=== PATIENT | male | born 1955 | race African-American/Black ===

== ENCOUNTER 2023-06-09 13:23 | Emergency (ER) | payer MEDICARE, SELFPAY ==
[2023-06-09] VITALS (11 sets, daily range): BP systolic 132–166; BP diastolic 79–100; PULSE 82–96; RESP 18–20; TEMP 36.6; O2SAT 96–98; BMI 39.4
--- NOTE | 2023-06-09 14:12 | XR_ITS ---
The [address] [address] Patient Name: LUIS JORGENSEN MRN: [id number] date: 1955 Sex: M Assigned Patient Location: ER Current Patient Location: ER Accession/Order Number: [id number] Exam Date: 06/09/2023 14:20 Report Date: 06/09/2023 14:54 At the request of: TARSHA DOWELL Procedure: XR chest 1V EXAMINATION: XR chest 1V HISTORY: pain COMPARISON: No relevant comparison available. TECHNIQUE: AP portable FINDINGS: LUNGS: No significant pulmonary parenchymal abnormalities. VASCULATURE: No increased pulmonary vasculature. PLEURA: No pneumothorax, effusion, or pleural thickening. CARDIAC: No cardiomegaly or cardiac silhouette abnormality. MEDIASTINUM: No visible mass or adenopathy. BONES: Mild degenerative disc disease and spondylosis without visible acute abnormalities. OTHER: Retrocardiac opacity with an air-fluid level mL likely a hiatal hernia XR/XR chest 1V IMPRESSION: No acute cardiopulmonary process Electronically authenticated by: ISAEL BARRAZA Date: 06/09/2023 14:54
--- NOTE | 2023-06-09 14:12 | ECG_ITS ---
The [facility] Test Date: 2023-06-09 Pat Name: LUIS JORGENSEN Department: Room: - Gender: Male Day Care Provider: : 1955 Requested By: MARISOL SANCHES Order Number: [id number] Reading MD: CHAGO DANIEL Measurements Intervals [place] Rate: 94 P: 17 RI: 190 QRS: 12 QRSD: 104 T: 90 QT: 392 QTc: 444 Interpretive Statements 1100 Sinus rhythm 1570 with occasional ventricular premature complexes 3514 Cannot rule out lateral myocardial infarction, age undetermined 9150 abnormal ECG No previous ECG available for comparison Electronically Signed On 06-11-2023 14:02:50 EDT by CHAGO DANIEL
--- NOTE | 2023-06-09 14:14 | ED.GENADUL1 ---
HPI - General Adult General Chief complaint: Dizziness Stated complaint: FAINTING SPELLS Time Seen by Provider: 06/09/23 14:12 Source: patient Mode of arrival: Wheelchair Limitations: no limitations History of Present Illness HPI narrative: 68-year-old here for evaluation of not feeling good two days ago. He says he felt wonderful yesterday and today but his family wanted to come and get checked. He does have chronic renal failure and is on home peritoneal dialysis for several months. He has not had fever nausea or vomiting. He states someone say he just felt fatigued and tired and little bit lightheaded. He does not have a having a squeezing or pressure. He did not have shortness of breath. No fever shakes or chills. He is not known to have coronary artery disease. He's not had any swelling of his legs. On Monday he had a little bit discomfort in his abdomen but he does not have any neck discomfort yesterday or today. Related Data Allergies Allergy/AdvReac Type Severity Reaction Status Date / Time cephalexin [From Keflex] Allergy Severe icthing Verified 06/09/23 13:39 PFSH PFS Social History Smoking status: Never smoker Exam Narrative Exam Narrative: patient's awake alert oriented ?3 good historian. Denies any symptoms at this time. Vital signs including pulse oximetry and temperature are noted to be normal. His is here with him at this time. She did not refute any of the information. Constitutional vital signs are noted does not appear acutely ill. Appears somewhat older than stated age. HEENT. He has some visual loss secondary to glaucoma but does not any symptoms related to his eyes at this time. He does not have any conjunctivitis or scleral icterus. Lungs are clear with no wheezes rales or rhonchi. Pulse oximetry normal no respiratory distress. Heart sounds were normal with no clicks rubs gallops or murmurs. He did have occasional ectopy. His EKG did show unifocal PVC Abdomen is morbidly obese his peritoneal dialysis catheter is in place and is not have any discomfort with aggressive palpation of the abdomen. Patient has no peripheral edema. Constitutional Vital Signs, click to edit/add: Last Vital Signs Temp 97.9 F 06/09/23 13:39 Pulse 93 H 06/09/23 13:48 Resp 19 06/09/23 13:48 BP 147/91 H 06/09/23 15:31 Pulse Ox 96 06/09/23 14:28 O2 Del Method Room Air 06/09/23 13:39 Course Vital Signs Vital signs: Vital Signs Temperature 97.9 F 06/09/23 13:39 Pulse Rate 96 H 06/09/23 13:39 Respiratory Rate 20 06/09/23 13:39 Blood Pressure 132/85 06/09/23 13:39 Pulse Oximetry 96 06/09/23 13:39 Oxygen Delivery Method Room Air 06/09/23 13:39 Temperature 97.9 F 06/09/23 13:39 Pulse Rate 93 H 06/09/23 13:48 Respiratory Rate 19 06/09/23 13:48 Blood Pressure 147/91 H 06/09/23 15:31 Pulse Oximetry 96 06/09/23 14:28 Oxygen Delivery Method Room Air 06/09/23 13:39 Medical Decision Making MDM Narrative Medical decision making narrative: this patient states he feels fine at this time but felt bad on Monday. We have no baseline troponin and they are substantially elevated here. His kidney function according to his kidney dialysis nurse is normal with an elevated creatinine. Potassium slightly low. He is asymptomatic. He does have unifocal PVC with elevated troponin. I discussed this with a tertiary center in no be glad to accept him as I'll discuss with Mr. Chong and his . We will arrange transportation to the [facility] Differential Diagnosis Differential Diagnosis: this Lab Data Labs: Lab Results 06/09/23 06/09/23 Range/Units 14:33 15:55 WBC 7.9 (4.0-11.0) 10^3/uL RBC 3.59 L (4.70-6.10) 10^6/uL Hgb 10.6 L (14.0-18.0) g/dL Hct 32.8 L (42.0-54.0) % MCV 91.4 (80.0-94.0) fL MCH 29.5 (25.9-34.0) pg MCHC 32.3 (29.9-35.2) g/dL RDW 15.5 H (11.0-15.0) % Plt Count 224 (150-450) 10^3/uL MPV 9.8 (9.5-13.5) fL Neut % (Auto) 78.0 H (43.0-75.0) % Lymph % (Auto) 11.1 L (20.5-60.0) % Cocke % (Auto) 7.6 (1.7-12.0) % Eos % (Auto) 2.2 (0.9-7.0) % Baso % (Auto) 0.5 (0.2-2.0) % Neut # (Auto) 6.2 (1.4-6.5) 10^3/uL Lymph # (Auto) 0.9 L (1.2-3.8) 10^3/uL Cocke # (Auto) 0.6 (0.3-0.8) 10^3/uL Eos # (Auto) 0.2 (0.0-0.7) 10^3/uL Baso # (Auto) 0.0 (0.0-0.1) 10^3/uL Abs Immat Gran (auto) 0.05 H (0.00-0.03) 10^3/uL Imm/Tot Granulo (auto) 0.6 H (0.0-0.5) % Sodium 139 (136-145) mmol/L Potassium 3.2 L (3.5-5.1) mmol/L Chloride 102 (98-107) mmol/L Carbon Dioxide 27.9 (21.0-32.0) mmol/L Anion Gap 12.3 BUN 30.0 H (7.0-18.0) mg/dL Creatinine 8.68 H* (0.70-1.30) mg/dL Est GFR ( Amer) 7 L (>=60) Est GFR (Non-Af Amer) 6 L (>=60) BUN/Creatinine Ratio 3.5 Glucose 133 H (74-106) mg/dL Lactate 0.9 (0.4-2.0) mmol/L Calcium 9.2 (8.5-10.1) mg/dL Magnesium 1.8 (1.8-2.4) mg/dL Total Bilirubin 0.3 (0.2-1.0) mg/dL AST 28 (15-37) U/L ALT 34 (16-63) U/L Alkaline Phosphatase 89 (46-116) U/L Troponin I High Sens 770.3 H* 781.9 H* (4.0-76.1) pg/mL Total Protein 8.3 H (6.4-8.2) g/dL Albumin 2.4 L (3.4-5.0) g/dL Globulin 5.9 g/dL Albumin/Globulin Ratio 0.4 Discharge Plan Discharge Chief Complaint: Dizziness Clinical Impression: Non-ST elevated myocardial infarction (non-STEMI), Chronic progressive renal failure Patient Disposition: [facility] Time of Disposition Decision: 17:31 Condition: Fair Mode of Transportation: EMS Referrals: Angel Luis Davis MD [Primary Care Provider] - 1 week
[2023-06-09] MEDS: 0.9 % SODIUM CHLORIDE 1,000 ML 100 ML IV (14:38)
[2023-06-09 14:52] LABS: Basophils Percent Auto 0.5 % (0.2-2.0); Eosinophils Absolute Auto 0.2 10^3/uL (0.0-0.7); Eosinophils Percent Auto 2.2 % (0.9-7.0); Hematocrit 32.8 % (42.0-54.0); Hemoglobin 10.6 g/dL (14.0-18.0); Immature Granulocytes Abs Auto 0.05 10^3/uL (0.00-0.03); Immature Granulocytes Pct Auto 0.6 % (0.0-0.5); Lymphocytes Absolute Auto 0.9 10^3/uL (1.2-3.8); Lymphocytes Percent Auto 11.1 % (20.5-60.0); Mean Corpuscular HGB Conc 32.3 g/dL (29.9-35.2); Mean Corpuscular Hemoglobin 29.5 pg (25.9-34.0); Mean Corpuscular Volume 91.4 fL (80.0-94.0); Mean Platelet Volume 9.8 fL (9.5-13.5); Monocytes Absolute Auto 0.6 10^3/uL (0.3-0.8); Monocytes Percent Auto 7.6 % (1.7-12.0); Neutrophils Absolute Auto 6.2 10^3/uL (1.4-6.5); Platelet Count 224 10^3/uL (150-450); Red Blood Count 3.59 10^6/uL (4.70-6.10); Red Cell Distribution Width 15.5 % (11.0-15.0); White Blood Count 7.9 10^3/uL (4.0-11.0)
[2023-06-09 15:08] LABS: Alanine Aminotransferase 34 U/L (16-63); Albumin Globulin Ratio 0.4; Albumin Level 2.4 g/dL (3.4-5.0); Alkaline Phosphatase 89 U/L (46-116); Anion Gap 12.3; Aspartate Amino Transferase 28 U/L (15-37); BUN Creatinine Ratio 3.5; Bilirubin Total 0.3 mg/dL (0.2-1.0); Calcium 9.2 mg/dL (8.5-10.1); Carbon Dioxide 27.9 mmol/L (21.0-32.0); Chloride 102 mmol/L (98-107); Estimated GFR (African America 7 (>=60); Estimated GFR (Non-African Ame 6 (>=60); Globulin 5.9 g/dL; Glucose 133 mg/dL (74-106); Magnesium 1.8 mg/dL (1.8-2.4); Potassium 3.2 mmol/L (3.5-5.1); Sodium 139 mmol/L (136-145); Total Protein 8.3 g/dL (6.4-8.2)
[2023-06-09 15:16] LABS: Lactate/Lactic Acid 0.9 mmol/L (0.4-2.0)
[2023-06-09 15:20] LABS: Troponin I High Sensitivity 770.3 pg/mL (4.0-76.1)
[2023-06-09 16:20] LABS: Troponin I High Sensitivity 781.9 pg/mL (4.0-76.1)
== END 2023-06-09 21:39 | disposition short-term general hospital (02) ==
PROVIDERS: Emergency Provider Emergency Medicine Emergency Medical Services; PCP Family Medicine
DX: I21.4 Non-ST elevation (NSTEMI) myocardial infarction (principal); N18.6 End stage renal disease; Z99.2 Dependence on renal dialysis; E66.01 Morbid (severe) obesity due to excess calories; Z68.39 Body mass index [BMI] 39.0-39.9, adult
CPT/HCPCS: 36415; 71045; 80053; 83605; 83735; 84484; 85025; 93005; 99285

== ENCOUNTER 2024-08-09 04:54 | Emergency (ER) | payer MEDICARE, SELFPAY ==
[2024-08-09 04:53] VITALS: BP 108/75; PULSE 98; TEMP 37; O2SAT 97; BMI 40.8
--- NOTE | 2024-08-09 06:08 | ED.GENADUL1 ---
HPI HPI - General Adult General Chief complaint: Urogenital-Male Stated complaint: OTHER Time Seen by Provider: 08/09/24 04:55 Source: patient Mode of arrival: ambulance Limitations: no limitations History of Present Illness HPI narrative: 69-year-old male to the emergency department chief complaint of dysuria, urgency, frequency. The symptoms began yesterday. He reports that he has been up all night feeling like he has to urinate but he cannot. Patient reports that he is on peritoneal dialysis and typically only urinates once or twice a day a small volume. He denies any fever, sweats, chills. He denies any abdominal pain. He reports he is otherwise at his baseline health. Related Data Previous Rx's ?Medication ?Instructions ?Recorded ciprofloxacin HCl 250 mg tablet 250 mg PO BID 3 days #6 tabs 08/09/24 (Cipro) Allergies Allergy/AdvReac Type Severity Reaction Status Date / Time cephalexin (From Keflex) Allergy Severe icthing Verified 08/09/24 04:59 Opioid HPI Opioid Management Most Recent Opioid Data: No Data to Display Review of Systems ROS Status of ROS 10 or more systems reviewed and unremarkable except as noted in history and below [facility] Social History Smoking status: Never smoker Little interest or pleasure in doing things: not at all Feeling down, depressed, or hopeless: not at all Exam Narrative Exam Narrative: VITALS: I have reviewed the triage vital signs. GENERAL: Well developed, well appearing adult in no acute distress. NEURO: Alert and oriented. Moves all extremities. Face is symmetric and expressive. EYES: PERRL. No scleral icterus or conjunctival injection. No discharge. HENT: Normocephalic, atraumatic. Hearing is grossly intact. Nares grossly patent and without discharge. Mucous membranes moist. NECK: No JVD. Patient moves neck without restriction. CARDIO: Rhythm regular. Normal rate. No murmur, rub, or gallop. Pulses equal bilaterally in the upper and lower extremity. No lower extremity edema. PULM: Lungs clear to auscultation in all dennis. No wheezes, rales, or rhonchi. No conversational dyspnea. No splinting, stridor, or accessory muscle use. GI/: Abdomen is soft and non-tender. Normoactive bowel sounds. EXTREMITIES: Symmetric muscle bulk. No joint swelling. No clubbing, cyanosis, or deformity. SKIN: Warm and dry. Normal turgor. No rash or lesions appreciated. PSYCH: Mood, affect, and interaction is appropriate to the setting. Constitutional Vital Signs, click to edit/add: Last Vital Signs Temp 98.6 F 08/09/24 04:53 Pulse 98 H 08/09/24 04:53 Resp 20 08/09/24 04:53 BP 108/75 08/09/24 04:53 Pulse Ox 97 08/09/24 04:53 O2 Del Method Room Air 08/09/24 04:53 Course Vital Signs Vital signs: Vital Signs Temperature 98.6 F 08/09/24 04:53 Pulse Rate 98 H 08/09/24 04:53 Respiratory Rate 20 08/09/24 04:53 Blood Pressure 108/75 08/09/24 04:53 Pulse Oximetry 97 08/09/24 04:53 Oxygen Delivery Method Room Air 08/09/24 04:53 Temperature 98.6 F 08/09/24 04:53 Pulse Rate 98 H 08/09/24 04:53 Respiratory Rate 20 08/09/24 04:53 Blood Pressure 108/75 08/09/24 04:53 Pulse Oximetry 97 08/09/24 04:53 Oxygen Delivery Method Room Air 08/09/24 04:53 Medical Decision Making MDM Narrative Medical decision making narrative: Well-appearing 69-year-old male to the emergency department via EMS for dysuria, urgency, frequency. Vital stable, the patient is afebrile. He is from [place] but requested transport to [place] as he does not like [facility]. Urinalysis is ordered. Bladder scan with 50 cc of urine. Patient reports that he wears a diaper as he has a hard time controlling his urination. We offered straight cath as the only way to get a urine sample from this gentleman. He accepts. He did not tolerate it well. Approximately 5 cc of urine were able to be obtained. Lab reports this is only enough culture urinalysis. Urine is malodorous, cloudy, and has mucus strands. Given his typical symptoms and suspect appearing urine. We will treat with ciprofloxacin while awaiting urine culture results. Cipro given in the ER. Prescription sent, renally dosed, shortness appropriate dose. Return precautions were discussed. All questions were answered. The patient was discharged back to his intermediate facility. Discharge Plan Discharge Chief Complaint: Urogenital-Male Clinical Impression: Urinary tract infection Patient Disposition: Home, Self-Care Time of Disposition Decision: 05:55 Condition: Good Mode of Transportation: EMS Prescriptions / Home Meds: New ciprofloxacin HCl [Cipro] 250 mg tablet 250 mg PO BID 3 Days Qty: 6 0RF Print Language: Finnish Instructions: Urinary Tract Infection in Men (ED) Additional Instructions: Call the office of your primary care doctor to arrange for follow-up within the above-stated timeframe. Your ED visit was focused on your acute issue and does not replace primary care. You should review your labs, imaging, and diagnoses from this ED visit with your primary care physician. There may be non-emergent/ incidental findings that need further evaluation. You should review your vital signs including blood pressure with your PCP. If you were prescribed medications you should discuss possible side-effects and drug interactions with your pharmacist. Call 911 or go to the nearest Emergency Department if you develop any new or worsening symptoms. Seek immediate medical attention if you develop: worsening abdominal pain, new or worsening nausea, new or worsening vomiting, new or worsening diarrhea, chest pain, shortness of breath, pain with urination, problems urinating, fever, chills, weakness, or any new or worsening symptoms. Referrals: Angel Luis Davis MD [Primary Care Provider] - 1 week
[2024-08-09] MEDS: CIPROFLOXACIN HCL 500 MG TABLET PO (06:24)
== END 2024-08-09 06:53 | disposition home or self-care (01) ==
LOC: ER 06:03
PROVIDERS: Emergency Provider Student in an Organized Health Care Education/Training Program; PCP Family Medicine
DX: N39.0 Urinary tract infection, site not specified (principal); Z99.2 Dependence on renal dialysis
CPT/HCPCS: 87086; 99283

== ENCOUNTER 2024-08-09 19:23 | Emergency (ER) | payer MEDICARE, SELFPAY ==
[2024-08-09 19:25] VITALS: BP 106/52; PULSE 95; TEMP 37.4; O2SAT 98; BMI 40.8
--- NOTE | 2024-08-09 19:34 | XR_ITS ---
The [place] [id number] Patient Name: LUIS JORGENSEN MRN: [id number] date: 1955 Sex: M Assigned Patient Location: ER Current Patient Location: ED.MAIN Accession/Order Number: [id number] Exam Date: 08/09/2024 19:52 Report Date: 08/09/2024 21:39 At the request of: EMELY ROSADO Procedure: XR chest 1V EXAM: XR chest 1V TECHNIQUE: Single AP view chest HISTORY: Fever COMPARISON: 06/09/2023 FINDINGS: The heart and mediastinum are unremarkable. No acute consolidation. Osseous structures are intact. Evaluation limited by low lung volumes and mild patient rotation. XR/XR chest 1V IMPRESSION: No acute interval change. Electronically authenticated by: CURTIS DAHL Date: 08/09/2024 21:39
--- NOTE | 2024-08-09 19:45 | ED.GENADUL1 ---
HPI HPI - General Adult General Chief complaint: Altered Mental Status Stated complaint: FEVER Time Seen by Provider: 08/09/24 19:27 Source: patient Mode of arrival: ambulance History of Present Illness HPI narrative: 69-year-old male presented for fever and some confusion. He is not able to provide us good history of present illness. It is not clear when his fever started and he states he really did not think he felt bad. He was seen early this morning and was diagnosed with a UTI and was prescribed Cipro. He is on peritoneal dialysis and was getting his treatment today when he was sent in. He does not complain of abdominal pain or chest pain. No further history is obtainable from the patient. Related Data Home Medications ?Medication ?Instructions ?Recorded ?Confirmed acetaminophen 325 mg tablet 650 mg PO Q4H PRN fever or pain 08/09/24 08/09/24 albuterol sulfate 2.5 mg/3 mL 2.5 mg inhalation Q4H PRN 08/09/24 08/09/24 (0.083 %) solution for nebulization shortness of breath or wheezing atorvastatin 80 mg tablet 80 mg PO QPM 08/09/24 08/09/24 brimonidine 0.2 % eye drops 1 drp ophthalmic (eye) BID 08/09/24 08/09/24 calcitriol 0.25 mcg capsule 0.25 mcg PO .3 times a wk 08/09/24 08/09/24 cholecalciferol (vitamin D3) 1,250 1,250 mcg PO QWEEK 08/09/24 08/09/24 mcg (50,000 unit) capsule dorzolamide 2 % eye drops 1 drp ophthalmic (eye) BID 08/09/24 08/09/24 ferrous sulfate 325 mg (65 mg 325 mg PO TID 08/09/24 08/09/24 iron) tablet furosemide 80 mg tablet (Lasix) 80 mg PO BID 08/09/24 08/09/24 gabapentin 300 mg capsule 300 mg PO QPM 08/09/24 08/09/24 gentamicin 0.1 % topical cream 1 applic topical DAILY 08/09/24 08/09/24 latanoprost 0.005 % eye drops 1 drp ophthalmic (eye) QPM 08/09/24 08/09/24 magnesium oxide 400 mg (241.3 mg 400 mg PO BID 08/09/24 08/09/24 magnesium) tablet omeprazole 20 mg capsule,delayed 40 mg PO DAILY 08/09/24 08/09/24 release pilocarpine HCl 2 % eye drops 1 drp ophthalmic (eye) BID 08/09/24 08/09/24 sevelamer carbonate 800 mg tablet 1,600 mg PO TID 08/09/24 08/09/24 sulfamethoxazole 800 1 tab PO BID 08/09/24 08/09/24 mg-trimethoprim 160 mg tablet timolol maleate (PF) 0.5 % eye 1 drp ophthalmic (eye) BID 08/09/24 08/09/24 drops in a dropperette verapamil 240 mg tablet,extended 240 mg PO DAILY 08/09/24 08/09/24 release vitamin B complex-vitamin C-folic 1 tab PO DAILY 08/09/24 08/09/24 acid 800 mcg chewable tablet (Dialyvite 800) Previous Rx's ?Medication ?Instructions ?Recorded ciprofloxacin HCl 250 mg tablet 250 mg PO BID 3 days #6 tabs 08/09/24 (Cipro) nirmatrelvir 150 mg-ritonavir 100 See Rx Instructions PO .COMPLEX 08/09/24 mg tablets in a dose pack #20 ea (Paxlovid) Allergies Allergy/AdvReac Type Severity Reaction Status Date / Time cephalexin (From Keflex) Allergy Severe icthing Verified 08/09/24 04:59 Opioid HPI Opioid Management Most Recent Opioid Data: No Data to Display Review of Systems ROS Narrative A ten point review of systems is negative except as noted above. PFSH PFSH Social History Smoking status: Never smoker Little interest or pleasure in doing things: not at all Feeling down, depressed, or hopeless: not at all Exam Narrative Exam Narrative: Nurses note and vital signs reviewed and patient is not hypoxic. General: The patient appears in no apparent distress. Patient is resting comfortably on cart. Skin: Warm, dry, no pallor noted. There is no rash noted. Head: Normocephalic, atraumatic Eye: Normal conjunctiva, no drainage Ears, Nose, Mouth, and Throat: oral mucosa is moist. Nares patent. Cardiovascular: Regular Rate and Rhythm Respiratory: Patient is in no distress, no accessory muscle use, lungs are clear to auscultation, no wheezing, rales or rhonchi Back: non-tender, no CVA tenderness bilaterally to percussion. GI: Soft and completely nontender. Musculoskeletal: The patient has no evidence of calf tenderness, symmetrical pulses noted bilaterally Neurological: A&O x4, normal speech Psychiatric: Cooperative Constitutional Vital Signs, click to edit/add: Last Vital Signs Temp 100.6 F H 08/09/24 21:54 Pulse 96 H 08/09/24 22:15 Resp 20 08/09/24 22:15 BP 100/50 08/09/24 22:15 Pulse Ox 96 08/09/24 22:15 O2 Del Method Room Air 08/09/24 22:15 Course Vital Signs Vital signs: Vital Signs Temperature 99.4 F 08/09/24 19:25 Pulse Rate 95 H 08/09/24 19:25 Respiratory Rate 26 H 08/09/24 19:25 Blood Pressure 106/52 08/09/24 19:25 Pulse Oximetry 98 08/09/24 19:25 Oxygen Delivery Method Room Air 08/09/24 19:25 Temperature 100.6 F H 08/09/24 21:54 Pulse Rate 96 H 08/09/24 22:15 Respiratory Rate 20 08/09/24 22:15 Blood Pressure 100/50 08/09/24 22:15 Pulse Oximetry 96 08/09/24 22:15 Oxygen Delivery Method Room Air 08/09/24 22:15 Medical Decision Making MDM Narrative Medical decision making narrative: The patient has tested positive for COVID and this appears to be the cause of his fever. He has no abdominal pain and I do not suspect peritonitis. No evidence of infiltrate on his chest x-ray and he was started on Cipro earlier today for UTI. There is no indication for admission to the hospital or further workup. Findings are discussed thoroughly with his daughter who is comfortable with the patient going back to the [facility] and she is going to transport him back. Treatment diagnosis and follow-up were discussed thoroughly. Differential Diagnosis Differential Diagnosis: COVID, pneumonia Lab Data Lab results reviewed: Yes I reviewed the patient's lab results Labs: Lab Results 08/09/24 08/09/24 Range/Units 19:40 20:30 WBC 15.4 H (4.0-11.0) 10^3/uL RBC 4.01 L (4.70-6.10) 10^6/uL Hgb 11.9 L (14.0-18.0) g/dL Hct 36.9 L (42.0-54.0) % MCV 92.0 (80.0-94.0) fL MCH 29.7 (25.9-34.0) pg MCHC 32.2 (29.9-35.2) g/dL RDW 16.6 H (11.0-15.0) % Plt Count 192 (150-450) 10^3/uL MPV 10.4 (9.5-13.5) fL Seg Neuts % (Manual) 81.0 H (43.0-75.0) Lymphocytes % (Manual) 4.0 L (20.5-60.0) % Atypical Lymphs % (Man) 4.0 % Monocytes % (Manual) 10.0 (1.7-12.0) % Eosinophils % (Manual) 0.0 L (0.9-7.0) % Basophils % (Manual) 1.0 (0.2-2.0) % Neutrophils # (Manual) 12.47 H (1.4-6.5) 10^3/uL Lymphocytes # (Manual) 0.61 L (1.20-3.80) 10^3/uL Abs Atypical Lymphs Man 0.61 Monocytes # (Manual) 1.54 H (0.30-0.80) 10^3/uL Eosinophils # (Manual) 0.00 (0.00-0.70) 10^3/uL Basophils # (Manual) 0.15 H (0.00-0.10) 10^3/uL Hypersegmented Neuts 2+ Sodium 133 L (136-145) mmol/L Potassium 2.9 L* (3.5-5.1) mmol/L Chloride 92 L (98-107) mmol/L Carbon Dioxide 27.1 (21.0-32.0) mmol/L Anion Gap 16.8 BUN 54.0 H (7.0-18.0) mg/dL Creatinine 16.36 H* (0.70-1.30) mg/dL Est GFR ( Amer) 4 L (>=60 mL/min/1.73m^2) Est GFR (Non-Af Amer) 3 L (>=60 mL/min/1.73m^2) BUN/Creatinine Ratio 3.3 Glucose 138 H (74-106) mg/dL Lactate 2.2 H* (0.4-2.0) mmol/L Calcium 9.7 (8.5-10.1) mg/dL Influenza Type A Ag Negative Influenza Type B Ag Negative SARS-CoV-2 Ag (CV2AG) Positive A (NEGATIVE) Imaging Data Chest x-ray: Radiologist's impression: ITS Impressions Chest X-Ray 08/09/24 19:34 IMPRESSION: No acute interval change. Electronically authenticated by: CURTIS DAHL Date: 08/09/2024 21:39 Discharge Plan Discharge Chief Complaint: Altered Mental Status Clinical Impression: COVID-19 Patient Disposition: Home, Self-Care Time of Disposition Decision: 22:29 Condition: Good Mode of Transportation: Private Vehicle Prescriptions / Home Meds: New Paxlovid 150-100 mg tablets,dose pack See Rx Instructions .ROUTE .COMPLEX Qty: 20 0RF Rx Instructions: take ONE 150 mg tablet of nirmatrelvir with ONE 100 mg tablet of ritonavir twice daily for 5 days Hold atorvastatin while on Paxlovid No Action ciprofloxacin HCl [Cipro] 250 mg tablet 250 mg PO BID 3 Days Qty: 6 0RF acetaminophen 325 mg tablet 650 mg PO Q4H PRN (Reason: fever or pain) brimonidine 0.2 % drops 1 drp OPHTHALMIC (EYE) BID gabapentin 300 mg capsule 300 mg PO QPM gentamicin 0.1 % cream 1 applic TOPICAL DAILY atorvastatin 80 mg tablet 80 mg PO QPM latanoprost 0.005 % drops 1 drp OPHTHALMIC (EYE) QPM Patient Comments: left eye magnesium oxide 400 mg (241.3 mg magnesium) tablet 400 mg PO BID omeprazole 20 mg capsule,delayed release(DR/EC) 40 mg PO DAILY pilocarpine HCl 2 % drops 1 drp OPHTHALMIC (EYE) BID Patient Comments: left eye sevelamer carbonate 800 mg tablet 1,600 mg PO TID timolol maleate (PF) 0.5 % dropperette 1 drp OPHTHALMIC (EYE) BID verapamil 240 mg tablet extended release 240 mg PO DAILY sulfamethoxazole-trimethoprim 800-160 mg tablet 1 tab PO BID albuterol sulfate 2.5 mg /3 mL (0.083 %) solution for nebulization 2.5 mg inhalation Q4H PRN (Reason: shortness of breath or wheezing) cholecalciferol (vitamin D3) 1,250 mcg (50,000 unit) capsule 1,250 mcg PO QWEEK calcitriol 0.25 mcg capsule 0.25 mcg PO .3 times a wk Patient Comments: Mon, Wed, Fri Dialyvite 800 800 mcg tablet,chewable 1 tab PO DAILY dorzolamide 2 % drops 1 drp OPHTHALMIC (EYE) BID ferrous sulfate 325 mg (65 mg iron) tablet 325 mg PO TID furosemide [Lasix] 80 mg tablet 80 mg PO BID Print Language: Turkish Instructions: COVID-19 (Coronavirus Disease 2019) (ED), Face Coverings (Masks) and COVID-19 (ED), How to Recover from COVID-19 at Home (ED) Referrals: Angel Luis Davis MD [Primary Care Provider] - 1 week
[2024-08-09 20:02] LABS: Hematocrit 36.9 % (42.0-54.0); Hemoglobin 11.9 g/dL (14.0-18.0); Mean Corpuscular HGB Conc 32.2 g/dL (29.9-35.2); Mean Corpuscular Hemoglobin 29.7 pg (25.9-34.0); Mean Platelet Volume 10.4 fL (9.5-13.5); Platelet Count 192 10^3/uL (150-450); Red Blood Count 4.01 10^6/uL (4.70-6.10); Red Cell Distribution Width 16.6 % (11.0-15.0); White Blood Count 15.4 10^3/uL (4.0-11.0)
[2024-08-09 20:24] LABS: Anion Gap 16.8; BUN Creatinine Ratio 3.3; Calcium 9.7 mg/dL (8.5-10.1); Carbon Dioxide 27.1 mmol/L (21.0-32.0); Chloride 92 mmol/L (98-107); Estimated GFR (African America 4 (>=60 mL/min/1.73m^2); Estimated GFR (Non-African Ame 3 (>=60 mL/min/1.73m^2); Glucose 138 mg/dL (74-106); Sodium 133 mmol/L (136-145)
[2024-08-09 20:25] LABS: Atypical Lymphocytes Abs Man 0.61; Basophils Abs Manual 0.15 10^3/uL (0.00-0.10); Lymphocytes Absolute Manual 0.61 10^3/uL (1.20-3.80); Monocytes Absolute Manual 1.54 10^3/uL (0.30-0.80); Segmented Neut Absolute Manual 12.47 10^3/uL (1.4-6.5)
[2024-08-09 20:26] LABS: Hypersegmented Neutrophils 2+
[2024-08-09 20:27] LABS: Lactate/Lactic Acid 2.2 mmol/L (0.4-2.0); Potassium 2.9 mmol/L (3.5-5.1)
--- NOTE | 2024-08-09 20:40 | PC.NURSE ---
Per long term patient was confused and sleeping a lot. Patient is A&O for me.
[2024-08-09 20:45] VITALS: BP 115/41; PULSE 90; O2SAT 98
--- NOTE | 2024-08-09 20:47 | PC.NURSE ---
20:20 Talked with [facility] dialysis nurse about fluid collection. Dr aware we doo not have the proper equipment for collection here.
[2024-08-09 20:51] LABS: Influenza Virus A Antigen Negative; Influenza Virus B Antigen Negative; Internal Control Within Normal Limits; SARS-CoV-2 Ag POSITIVE (NEGATIVE)
[2024-08-09 21:31] VITALS: BP 116/41; TEMP 38.2; O2SAT 93
[2024-08-09 21:54] VITALS: TEMP 38.1
[2024-08-09] MEDS: IBUPROFEN 400 MG TABLET 800 MG PO (22:14)
[2024-08-09 22:15] VITALS: BP 100/50; PULSE 96; O2SAT 96
== END 2024-08-09 22:54 | disposition home or self-care (01) ==
PROVIDERS: Emergency Provider Emergency Medicine; PCP Family Medicine
DX: N39.0 Urinary tract infection, site not specified (principal); U07.1 COVID-19; Z99.2 Dependence on renal dialysis
CPT/HCPCS: 36415; 71045; 80048; 83605; 85007; 85027; 87040; 87070; 87086; 87150; 87804; 87811; 99283; 99285

== ENCOUNTER 2025-09-04 13:48 | Emergency (ER) | payer MEDICARE, SELFPAY ==
--- OUTSIDE RECORDS SUMMARY | 2025-07-28 06:00 | XMS_ITS ---
Author Organization [facility] in [place] Address [address] [place] [address] Care Team Providers Care Special Education Assistant Name Role Phone None, Unknown or Primary Care Provider Unavailab Jacek Pinto Unavailable [phone] REASON FOR VISIT ESRD NEW ACCESS CONSULT Encounters Encounter Location Date Provider Diagnosis Interventional Neph[facility] [address] [place] [address] 07/28/2025 Jacek Anderson Plan Of Treatment No Information Progress Notes * Supa CHONG IIIDOB: 3 (70 yo M)Acc No.[id number]:07/28/2025 UNLOCKED PROGRESS NOTE Progress Note Patient: Supa FALCON III :?Jacek Anderson, MDDOB:1955???Age:70 Y ???Sex:MaleDate:07/28/2025Phone:[phone]:[address], [place], [id number]:Unknown or None Subjective: * Chief Complaints: * 1 . ESRD NEW ACCESS CONSULT. * Medical History: Objective: * Vitals: Assessment: Plan: * Treatment: * * Electronic signature of Jacek Anderson MD, [id number] on 09/04/2025 at 02:43 PM EST Sign off status: PendingVisit Status:?N/S N/C (No Show/No Charge) * Provider: Tammy Anderson MD Date: 1 Generated for Printing/Faxing/eTransmitting on:?09/04/2025 02:43 PM EST
--- OUTSIDE RECORDS SUMMARY | 2025-08-21 05:11 | XMS_ITS | Continuity of Care Document ---
Author Organization [facility] Address [address] [place] [address] Phone Care Team Providers Care Audiovisual Equipment Operator Name Role Phone Angel Luis Davis MD Primary Care Provider [phone] Slick Montiel DO Admit Provider Latia Mobley MD Other Provider Ron Ortega MD Other Provider [phone] Rochelle Fuller MD Other Provider Cherelle Maldonado INWARD TOLL OPERATOR-C Other Provider Unavailable Angelito Faustin Other Provider Reece Rodriguez MD Other Provider Cherelle Mejia APRN Other Provider Buddy Tavarez MD Other Provider [phone] Vidal Andujar MD Other Provider Juan Carlos Israel MD Other Provider Carlos Lenz DO Other Provider Leanna Del Valle MD Other Provider Anthony Latif MD Other Provider Emma Anderson MD Other Provider Severino Mitchell MD Attending Provider Severino Mitchell MD Other Provider Reece Rodriguez MD Attending Provider Aron Peraza MD Attending Provider [phone] Siena Newsome INWARD TOLL OPERATOR-C Attending Provider Care Teams Patient Care Team Team Status: Active Member Role/Relationship Status Dates Angel Luis Davis MD Primary Care Provider Active Visit Care Team Team Status: Active Member Role/Relationship Status Dates Angel Luis Davis MD Primary Care Provider Active S tart: July 19, 2025 Slick Montiel , DOAdmit ProviderActiveStart: July 19, 2025 Latia Mobley MDOther ProviderActiveStart: July 19, 2025 Ron Ortega MDOther ProviderActiveStart: July 19, 2025 Rochelle Fuller MDOther ProviderActiveStart: July 19, 2025 Cherelle Maldonado NP-COther ProviderActiveStart: July 19, 2025 Dom Faustin MDOther ProviderActiveStart: July 19, 2025 Reece Rodriguez MDOther ProviderActiveStart: July 19, 2025 Cherelle Mejia APRN ACNP-BCOther ProviderActiveStart: July 19, 2025 Buddy Tavarez MDOther ProviderActiveStart: July 19, 2025 Vidal Andujar MDOther ProviderActiveStart: July 19, 2025 Juan Carlos Israel MDOther ProviderActiveStart: July 19, 2025 Carlos Lenz DOOther ProviderActiveStart: July 19, 2025 Leanna Del Valle MDOther ProviderActiveStart: July 19, 2025 Anthony Latif MDOther ProviderActiveStart: July 19, 2025 Emma Anderson MDOther ProviderActiveStart: July 19, 2025 Severino Mitchell MDAttending ProviderActiveStart: July 19, 2025 Severino Mitchell MDOther ProviderActiveStart: July 19, 2025 Severino Mitchell MDOther ProviderActiveStart: July 19, 2025 Visit Care Team Team Status: Active Member Role/Relationship Status Dates Angel Luis Davis MD Primary Care Provider Active S tart: July 26, 2025 Slick Montiel , DOit ProviderActiveStart: July 26, 2025 Latia Mobley MDOther ProviderActiveStart: July 26, 2025 Ron Ortega MDOther ProviderActiveStart: July 26, 2025 Rochelle Fuller MDOther ProviderActiveStart: July 26, 2025 Cherelle Maldonado NP-COther ProviderActiveStart: July 26, 2025 Dom Faustin MDOther ProviderActiveStart: July 26, 2025 Dante Ruizending ProviderActiveStart: July 26, 2025 Reece Rodriguez MDOther ProviderActiveStart: July 26, 2025 Severino Mitchell MDOther ProviderActiveStart: July 26, 2025 Visit Care Team Team Status: Inactive Member Role/Relationship Status Dates Angel Luis Davis MD Primary Care Provider Active S tart: August 19, 2025 End: August 19annalee Peraza , FRANCIEttending ProviderActiveStart: August 19, 2025 End: August 19, 2025 Patient Care Team Team Status: Inactive Member Role/Relationship Status Dates Angel Luis Davis MD Primary Care Provider Active S tart: August 21, 2025 End: August 21, 2025Siena Newsome , INWARD TOLL OPERATOR-CAttending ProviderActiveStart: August 21, 2025 End: August 21, 2025 Chief Complaint and Reason for Visit Chief Complaint Admit Date pneumonia, peritonitis July 19 8:42pm pneumonia, peritonitis July 26, 2025 12:00am I112.0 N18.6 Z99.2 August 19, 2025 9 :45am Hospital follow-up, needs access creatio n August 21, 2025 9:30am Reason for Visit Admit Date (HFpEF) heart failure with preserved eje ction fraction July 19, 2025 8:42pm Anemia of renal disease July 19, 2025 8:42pm End-stage renal disease on peritoneal di alysis July 19, 2025 8:42pm Gout July 19, 2025 8:42pm Hypertension July 19, 2025 8:42pm Hypertensive chronic kidney disease with stage 5 chronic kidney disease or July 19, 2025 8:42pm Acute hypoxic respiratory failure Septem chari 2024 8:42pm Hypokalemia July 19, 2025 8:42pm Peritoneal dialysis catheter in place Se ptember 2024 8:42pm Peritonitis associated with peritoneal d ialysis July 19, 2025 8:42pm Pneumonia July 19, 2025 8:42pm Septic shock July 19, 2025 8:42pm Reason for Referral Type Reason(s) Provider Provider Contact Information P velma Address Start Date Call if needed.Call if needed.Please arrange a follow-up appointment once discharged from [facility].You are scheduled for your next dialysis treatment on the following date and time. Please arrive by 1:30 pm.[facility] Phone: [phone] [employer] [place] [address]Tblx if needed.[facility] Phone: [address] [place] [address]Uxsh if needed.Ron Ortega MDWork Phone: [phone] [facility] [address] [place] [address]Qpnmqp arrange a follow-up appointment once discharged from [facility].Angel Luis Davis MDWork Phone: [phone] [place] [address]Sce will have an ultrasound during your visit in the office. Please call the office to reschedule this appointment if this time does not work for you. Please call with additional questions or concerns. Thank you.Lian Bhat MD Work Phone: [phone] [facility], [address] [place] [address] Allergies, Adverse Reactions, Alerts Allergen Type Severity Reaction Last Updated Verified Status fentanyl Allergy Severe Agitated August 21, 2025 9:47am Yes Active cephalexin Allergy Unknown Itching August 21, 2025 9:47am Yes Active Social History Smoking Status Status Start Date End Date Date of Observa tion Never smoked tobacco (finding) July 22, 2025 11:48am Observation Status Observation Response Date of Response Legal Sex Male (finding) Sex Assigned At BirthMaleJune 1954 Social History Assessments Assessment Value Date Recorded SDOH Follow up July 29, 2025 1:47pmQuestionAnswerDate RecordedHas the SDOH screening changed since admission?NOctober 2024 1:47pm Assessment Value Date Recorded SDOH Follow up July 22, 2025 10:41amQuestionAnswerDate RecordedHas the SDOH screening changed since admission?NSeptember 2024 10:41am Family History Relationship Condition Age at Onset Recorded Date/T robyn sister Chronic obstructive pulmonary disease Unk nown Malignant neoplasm of brainUnknownsisterChronic obstructive pulmonary disease UnknownmotherCongestive heart failureUnknownType 2 diabetes mellitusUnknownRenal failureUnknowngrandparentCerebrovascular accident (CVA)UnknownfatherDeceased Unknownfamily memberDeceasedUnknownmotherDiabetes mellitusUnknownDeceasedUnknown HypertensionUnknownsisterMalignant neoplasmUnknown Problems Active Problems Problem Diagnosis/Recorded Date Onset Date Stat us Bacteremia due to Staphylococcus aureus September 17, 2023 6:08pm Unknown Active End-stage renal disease on p eritoneal dialysis June 10, 2023 12:42pm Unknown Active Aortic valve endocarditis September 19, 2023 2:39pm U nknown Active Hyperparathyroidism, secondary renal August 21 9:48am Unknown Active Secondary renal hyperparathyroidism August 21, 2025 9:48am Unknown Active Fever September 16, 2023 3:02pm Unknown A ctive Gout July 14, 2018 8:48pm Unknown Active Gout August 21, 2025 9:48am Unknown Ac tive CKD (chronic kidney disease) stage 4, GFR 15-29 ml/min August 21, 2025 9:48am Unknown Active (HFpEF) heart failure with p reserved ejection fraction September 17, 2023 1:16pm Unknown Active Cluster headache July 14, 2018 8:48pm Unknown Active Hypercholesteremia August 21, 2025 9:48am Unknown Active Hyperlipidemia September 27, 2022 11:35am Unknown Active Chronic kidney disease, stage 5 August 21, 2025 9:4 8am Unknown Active Mixed hyperlipidemia August 21, 2025 9:48am Unknown Active Chronic kidney disease, unspecified August 21, 2025 9:48am Unknown Active Renal mass of unknown nature September 16, 2023 3:09p m Unknown Active Anemia in chronic kidney disease August 21, 2025 9: 48am Unknown Active Severe sepsis September 17, 2023 1:15pm Unknown Active Hypertensive chronic kidney disease with stage 5 chronic kidney disease or end stage renal disease September 16, 2023 3:03pm Unknown Active Anemia associated with chron ic renal failure August 21, 2025 9:48am Unknown Active Anemia of renal disease June 10, 2023 12:43pm Unkn own Active Abdominal pain September 16, 2023 3:02pm Unknown Active Hypertension September 27, 2022 11:35am Unknown A ctive Hypertension August 21, 2025 9:48am Unknown Ac tive Inactive/Resolved Problems Problem Diagnosis/Recorded Date Onset Date Stat us ANA LUISA (acute kidney injury) July 15, 2018 10:41am Unknown Resolved Hypertensive urgency August 09, 2023 4:05pm Unknown Resolved Nausea vomiting and diarrhea July 14, 2018 8:48 pm Unknown Resolved Other acute postprocedural pain September 29, 2022 3:2 9pm Unknown Resolved Acute hypoxic respiratory failure July 19, 2025 10:34pm Unknown Resolved Peritonitis associated with peritoneal dialysis July 20, 2025 11:09am Unknown Resolved Dysarthria August 09, 2023 4:05pm Unknown Re solved Acute renal failure July 14, 2018 8:48pm Unknow n Resolved CKD (chronic kidney disease) stage 3, GFR 30-59 ml/min July 15, 2018 10:46am Unknown Resolved Peritoneal dialysis catheter dysfunction May 19, 2024 6:22am Unknown Resolved Abdominal distention July 14, 2018 8:48pm Unkno wn Resolved Septic shock July 19, 2025 10:39pm Unknown Resolved Leukocytosis May 19, 2024 6:22am Unknown Resol va Syncope June 10, 2023 12:11am Unknown Re solved Elevated troponin June 10, 2023 12:18am Unknown Resolved Acute cerebrovascular accident (CVA) August 09 2:48pm Unknown Resolved Facial droop August 09, 2023 3:17pm Unknown Re solved Status post inguinal hernia repair July 16 7:06pm Unknown Resolved Metabolic acidosis July 15, 2018 10:41am Unknow n Resolved Hypertension July 14, 2018 8:48pm Unknown Resolved Pneumonia July 19, 2025 10:35pm Unknown Resolved Peritoneal dialysis catheter in place June 10, 2023 12:12am Unknown Resolved Volume overload May 19, 2024 6:22am Unknown Re solved Hypokalemia May 19, 2024 10:49am Unknown Reso lved Hyperkalemia July 14, 2018 8:48pm Unknown Resolved Medications Medication Status Dose Units Route Directions Qty Days Refills S tart Date Stop Date End Date Reason(s) Instructions Adherence Hydralazine 50 mg tablet Discontinued 50 MG PO Twice daily 180 90 1 December 12, 2023 4:40pm May 19, 2024 6:33amSevelamer Carbonate 800 mg aeeymhSzzsbv841LWEW5 times per day with mealsOct2022 12:00amComplies with drug therapyLatanoprost 0.005 % kalhoHakzur8UCOFOFBZ-IOPBXatuuvbPutseti 2022 12:00amComplies with drug therapyPotassium Chloride (Klor-Con M20) 20 mEq tablet,ER particles/fojrdfwgQiumqdxknydm15QKPRUVovjx dailyOctcumberland hall hospital 2022 12:00amJuly 2023 6:41amPotassium Chloride (Klor-Con M20) 20 mEq tablet,ER particles/crystalsDiscontinuedMEQPOOctober 2022 12:00amOctober 2022 5:23pmPotassium Chloride (Klor-Con M20) 20 mEq tablet,ER particles/crystals DiscontinuedMEQPOOctober 2022 12:00amOctober 2022 5:23pmMagnesium Oxide 400 mg (241.3 mg magnesium) xhrzjhJjxent805LYVZZrbcf dailyOctober 2022 12:00amComplies with drug therapyTimolol Maleate 0.5 % dropsDiscontinued DROPSOctcumberland hall hospital 2022 12:00amOctober 2022 5:24pmPilocarpine Hcl 2 % hnvwxSmcktn4DTYZWORN-SXCGTsbgb dailyOctcumberland hall hospital 2022 12:00amComplies with drug therapyPolyethylene Glycol 3350 17 gram/dose klgdkiDuqxfx36HBRCNdicrZlqyshe 18th, 2023 12:00amComplies with drug therapyPrednisone 20 mg TabletDiscontinued 15VRKSFpfqm7493Ewjqfxc 2022 12:00amNovember 2022 12:20pmHydralazine 50 mg YlfmeoWkigmpocrmwo566NOENIcydq times pxdsl550647Urpfhcm 2022 12:00am September 16, 2023 12:20pmAcetaminophen (Arthritis Pain Relief (Acetam)) 650 mg tablet extended mhbgplbZshyya5343CEUJFhhyk 6 hours as needed for fever or pain May 19, 2024 12:00amComplies with drug therapyAlbuterol Sulfate 2.5 mg /3 mL (0.083 %) solution for nebulizationDiscontinued2.5MGCNTNEBULIZEvery 4 hoursJuly 2023 12:00amSeptember 2024 12:06amshortness of breath or wheezing Ferrous Sulfate 325 mg (65 mg iron) moyursHsjmms089VKBINxaby times dailyJuly 2023 12:00amComplies with drug therapyGentamicin 0.1 % ugafxRsnwdf8UQVRDQ TOPICALDailyJuly 2023 12:00amPea size topical daily to PD catheter exit site with dressing changeComplies with drug therapyGuaifenesin (Cough Syrup) 100 mg/5 mL nwfvjjWxdveo136JTWUOgxnd 4 hours as needed for coughJuly 2023 12:00amComplies with drug therapyAlum-Mag Hydroxide-Simeth (Mag-Al Plus) 200-200-20 mg/5 mL nskitioalxXwnycl3VQVKMmldb 4 hours as needed for indigestion May 19, 2024 12:00amComplies with drug therapyNut.Tx.Impaired Renal Fxn,Soy (Novasource Renal 2 Jamie) 0.09 gram- 2 kcal/mL bpiknmTnlykzpcpnox2GGXFDJoyomk other dayJuly 2023 12:00amSeptember 2024 8:41am1 8 oz. drink every Monday, Monday, MondayVancomycin - Pharmacy FdshjhEyryhgncjpzy4SYQGZMGyyg as needed for infectionJuly 2023 12:00amJuly 2023 1:54pmLosartan 50 mg PgplwcEziqbbenpvyb43NGLLDdslbGtublacvr 2017 12:00amSept2017 3:00pmAtorvastatin 40 mg XdtkqeQcopxiegfyqa78QZSKVyktackEvbbqyitc 2017 12:00amDecemb2021 11:04swVdmphhpzvp-Hwgedlnhwpsed-Icrs 50-325-40 mg WllccvtJspcaoqkbiqi4AVEFWV9W as needed for PainSeptember 2017 12:00amJuly 2023 6:29amOxycodone-Acetaminophen 5-325 mg QyeckjJcbsofopiden2KEHKSY0V as needed for PainSeptember 2017 12:00amDece2021 11:27amBaclofen 10 mg IufkwvIvitkjiudqjk40XZOIXyqyg times dailySeptember 2017 12:00amDecehopi health care center 2021 11:25amOmeprazole 20 mg Capsule,Delayed Release(Dr/Ec)Poitfb36JJUT Every morningSept2017 12:00amComplies with drug therapyAllopurinol 300 mg TnmegnWtthozwiybgi132MYPGIwpkdSzjfodbrg 2017 12:00amSept2017 3:00pmLorazepam 1 mg ZoiowrShqjrayyrgeg6EJWJZandl daily as needed for anxietySeptember 2017 12:00amDe2021 11:26amVerapamil 240 mg Capsule,Ext Rel. Pellets 24 HyUnmonttqiuji334WZENVopwq morningpt2017 12:00amNoveer 2022 1:04pmOmega 3-Vzb-Hps-Fish Oil (Fish Oil) 300- 1,000 mg Capsule,Delayed Release(Dr/Ec)Lfsjhuhoihfo5EZIMBFtkvgPeqcbgiqo 2017 12:00amDece2021 11:27amFurosemide 40 mg ccryfjKkozxpxijlxv07OVCI Twice dailyDe2021 1:00amSeptember 2024 12:26amAtorvastatin 80 mg vixkmlOrpyft04AOQFJyeww at bedtimeDe2021 1:00amComplies with drug therapyAllopurinol 100 mg ezmzgiOlotflsjbdge369ZZXXJibzb morningSeptember 27, 2022 1:00amSeptember 2024 8:19amSodium Bicarbonate 650 mg tablet Burnczphvgdc439XFLXBrnwm times dailySeptember 27, 2022 1:00amOctober 2022 5:24pmFerrous Sulfate 325 mg (65 mg iron) cggsmzGocnzpsjbdpz343IRPSKkahs morning September 27, 2022 1:00amOctober 2022 5:25pmCalcitriol 0.5 mcg capsule Active0.5MCGPOEvery 2021 1:00amComplies with drug therapy Brimonidine 0.2 % ccibiIrrnvu2OZYVWIRL-TRAYKdcit dailySeptember 27, 2022 1:00am Complies with drug therapyGabapentin 300 mg fzhxhpbRerouz804KUOJIwwej at bedtime September 27, 2022 1:00amComplies with drug therapyHydralazine 50 mg tablet Axznrxadmwrx59UDYIKyuqr dailySeptember 27, 2022 1:00amOctober 2022 12:30pm Timolol Maleate 0.5 % lacbbZpjnmzxgqwtk2XQGNZHAS-CWDPIvmss dailySeptember 27, 2022 1:00amSeptember 2024 8:20amFluticasone Propionate 50 mcg/actuation spray,vutwcsymdjXhkhgqgvefwh5HTMLUNCQIIAJWQFCdrwa morningDecember 6th, 2022 1:00amOctober 2022 5:25pmDorzolamide 2 % rppekQanuwk6WNILXFNV-GRYGPbdcv dailySeptember 27, 2022 1:00amComplies with drug therapyHydrocodone- Acetaminophen 5-325 mg dikupeAcfsfrvhgbis2ZQDVST3G as needed for llcv1505 September 29ctober 2022 5:27pmOther acute postprocedural pain Other acute postprocedural painValsartan 80 mg xrxxezVmspaqhluepa90XQCGTyixw September 16, 2023 1:00amJuly 2023 6:43amHydralazine 50 mg tablet Xyadpianhyzr15HGVLKwdpa dailySeptember 16, 2023 12:20pmFebruary 2023 4:41pmVerapamil 240 mg tablet extended uzhmdmbNqngocejavmw992MKFJLitnsCbcvstrx 26th, 2023 1:00amSept2024 8:42amVancomycin - Pharmacy Dosing Cemdujzlzhhd3mcXELvmy as ciflsz0HnmswymaSeptember 21, 2023 1:00amJuly 2023 6:44am Sodium Chloride 0.9 % (Flush) (Normal Saline Flush) SxnfssuIgrwthseffdl28FXXD Okcfa939257Ugoqebzd 1st, 2023 1:00amSept2024 8:24amBacteremia due to Staphylococcus aureus Bacteremiaadminister before and after IV drug administration as part of [facility] protocolNystatin 100,000 unit/mL McluaqxoyuRuplouhovuzf139607XAPOPZAxdsb times xxlqr171069Fjeiisat 1st, 2023 1:00amJuly 2023 6:40amSodium Chloride 0.9 % (Flush) (Normal Saline Flush) FxumlcuGwqympjxtlyd25RUKCTlddn82.5420Dece2022 1:00amSept2024 8:24amadminister before and after IV drug administration as part of [facility] protocolCholecalciferol (Vitamin D3) 1,250 mcg (50,000 unit) opyvcqiQknmos0843QOOXHlgymt weekSept2024 12:00am Complies with drug therapyTamsulosin (Flomax) 0.4 mg capsuleActive0.4MGPODaily at bedtimeS2024 12:00amComplies with drug therapyHeparin (Porcine) 1,000 unit/mL fdcszxtoVxcfyw3866ELPZFKRWLUTBHEVvuifLbvkviwcv 28th, 2025 12:00amInject 1mL per 1 liter of solution in each PD bag.Complies with drug therapyMidodrine 5 mg xlmwdaQqgmnwyaimfc6OXLWXjaay daily as needed for B/P July 20, 2025 12:00amOctober 2024 2:58pmSBP <100Ondansetron Hcl 4 mg sngpppMcthgh3CBDRZsofu 8 hours as needed for nausea and vomitingSe2024 12:00amComplies with drug therapyPotassium Chloride 20 mEq tablet,ER particles/hhoqccepQncuoe51GTDSPSdujpHiarwnrzk 28th, 2025 12:00amComplies with drug therapySodium Chloride 1,000 mg tablet,xbjzomiCcfzwv5194WZJRJmnkkGvtvisoiw 28th, 2025 12:00amComplies with drug therapyTimolol Maleate (Pf) (Timoptic Ocudose (Pf)) 0.5 % uqnnyghuunaMwmlrs1THPOYSKD-GNRHIublc dailyJuly 20, 2025 12:00amComplies with drug therapyEzetimibe 10 mg hebdnjPptkkm43GFNMWimsf July 20, 2025 12:00amComplies with drug therapyLorazepam 0.5 mg tablet Discontinued0.5MGPOEvery 8 hours as needed for anxietyJuly 20, 2025 12:00amOctober 2024 2:53pmAlbuterol Sulfate 2.5 mg /3 mL (0.083 %) solution for nebulizationActive2.5MGINHALATIONEvery 4 hours as needed for shortness of breath or wheezingJuly 20, 2025 12:00amComplies with drug therapy Sulfamethoxazole-Trimethoprim (Bactrim Ds) 800-160 mg ahlfddEefjvpuzhond3VQNCF Twice daily as needed for PD infectionS2024 12:00amOctober 2024 2:39pmPer direction of PD nurse for emergency antibiotic - give x3 days when if needed.Benzonatate 100 mg ocdskumQxpbnj853HDLLYbbxx times daily as needed for coughSept2024 12:00amComplies with drug therapyMenthol (Biofreeze (Menthol)) 4 % avzQssjmc8NSTXNOVEPGASAAgdwo daily as needed for pain July 20, 2025 12:00amApply to low back and hipsComplies with drug therapy B Complex-Vitamin C-Folic Acid (Dialyvite) 100-1 mg wcheizWycamx9PLDMBWfpvd July 20, 2025 12:00amComplies with drug therapyMenthol-Pectin (Cough Drops (Menthol-Pectin)) 2.5-7 mg dxaviutVdgwrd9HCJTAKARQRcpsb 2 hours as needed for coughSept2024 12:00amComplies with drug therapyFluticasone Propionate 50 mcg/actuation spray,lghdazxmktZsnbbp6JFXARCIFRSOGZZDUoavj as needed for nasal congestionSeptember 2024 12:00amComplies with drug therapyLidocaine 4 % adhesive patch,foygoirzdNzzvlv1SPPNQUHGTFAQSdeav daily as needed for painSeptember 2024 12:00amApply to R hip and/or bilateral heels Complies with drug therapyOmega 3-Tba-Geb-Fish Oil 120-180-500 mg capsuleActive1 CAPPODailySeptember 2024 12:00amComplies with drug therapyCalcium Carbonate (Tums) 200 mg calcium (500 mg) tablet,voqddzorLqjtfs759XQWKFbewg 8 hours as needed for upset stomachSept2024 12:00amComplies with drug therapyNystatin 100,000 unit/mL ImxkjotalvUlwcxk287911RMZPXRMiqk times dkzik4570 0Oct2024 12:00amComplies with drug therapyVancomycin 1,000 mg Recon FhueJckyht8WPPJLmni97588Naeeuks 7th, 2025 12:00amComplies with drug therapy Vancomycin - Pharmacy XyvzzsHgvgij0ATUOWOKHY as needed for pharmacy to lzsg37689 July 29, 2025 12:00amComplies with drug therapyLorazepam 0.5 mg tabletActive 0.5MGPOEvery 8 hours as needed for evqxhuh441Rwamuci 7th, 2025 2:53pmAnxiety Anxiety disorder, unspecifiedComplies with drug therapyMidodrine 5 mg Tablet Xlbxya92IZGA1k/Day at 7a,12p,5p as needed for hqdpusmnlly81Ogyixcg 7th, 2025 2:58pmComplies with drug therapy Medical Equipment Device Date Implanted Device Details Peritoneal dialysis catheter , chronic September 29, 2022 FAHEEM: [id number] Double-lumen haemodialysis c atheter, implantable July 28, 2025 FAHEEM: [id number] Procedures Procedure Date Performed Status US map hemodial access JANICE August 19, 2025 9: 48am completed Relevant Diagnostic Tests and/or Laboratory Data Diagnostic Imaging Reports Author Aron Peraza [facility] CenterAuthoredOctc[facility] hall hospital 2024 1:16pmReportDictated Date/TimeDictated ByStatusRadiology ReportOctober 2024 1:16pmLian Bhat [facility] [place] [address] [place], [place] [id number] Ultrasound Report Signed Patient: Supa Chong III MR#: [id number] : 1955 Acct:[id number] Age/Sex: 70 / M ADM Date: 5 Loc: Room: Type: [facility] Attending Dr: Aron Peraza MD Ordering Provider: Aron Peraza MD Date of Service: 08/19/25 US/US map hemodial access JANICE: I12.0 - Hypertensive chronic kidney disease with stage 5 ... Copies to: Aron Peraza MD~ Ultrasound mapping for hemodialysis bilateral upper extremity veins INDICATION: COPD progressing to dialysis Procedure color-flow duplex scanning is used to interrogate the superficial veins of the bilateral upper extremities. In the right upper extremity the basilic vein measures 0.6 cm the 0.3 cm above the elbow crease and 0.3 cm and below in the forearm. In the right cephalic vein measurements were obtained showing greater than 0.4 cm throughout the proximal arm. There is a port present in the right subclavian artery. The right axillary vein is patent and measures 0.78 cm. The right brachial artery measures 0.55 cm. The right radial artery measures 0.33 cm. A presales engineer vein in the right upper extremity measures 0.34 cm. In the left upper extremity, the basilic vein measures 0.3 to 0.5 cm in the upper arm. It measures 0.2 cm and less in the forearm. In the left cephalic vein, measurements are greater than 0.3 cm throughout the entire arm. The left subclavian vein and axillary vein are patent. The axillary vein measures 0.63 cm. The brachial artery measures 0.59 cm. The radial artery measures 0.35 cm. There is a presales engineer seen measuring 0.27 cm. US/US map hemodial access JANICE IMPRESSION: Both right and left cephalic veins are appropriate size for dialysis access creation. The left basilic vein in the proximal arm is also of adequate size for dialysis access creation. The left cephalic vein has good size for access creation throughout the entire arm. Tracheal artery radial artery sizes are a ppropriate. Axillary and subclavian veins are patent. Impression dictated by: Aron Peraza M.D. 08/20/2025 1:19 PM Dictation Location: [facility] Tech: Mary Wilcox Transcribed By: LIEN 08/20/25 1319 Dictated By: Aron Peraza MD 08/20/251315 Signed By: <Electronically signed by Aron Peraza MD in OV> 08/20/251318 Vital Signs Vital Reading Result Reference Range Collection Date/Time Height 73 [in_i] July 28, 2025 1:53lsVmhgsq683.50 kgOctober 2024 5:56amBody Temperature 98 [degF]97.6-99.0October 2024 1:13pmHeart Rate57 /acu97-220Lvsriwu 2024 1:13pmRespiratory rate18 /jhe61-31Jvtzaba 2024 1:13pmOxygen saturation by Pulse zjwvfliu26 %95-100October 2024 1:13pmBP Ieyoxfgt366 mm[Hg]100-140 July 29, 2025 1:13pmBP Butohqffw68 mm[Hg]60-100October 2024 1:13pm Inhaled oxygen flow rate2 L/minOctcumberland hall hospital 2024 7:20yvJrxxbw21 [in_i]August 21, 2025 9:38fgYjxmga741.98 kgOctober 2024 9:48amBody Difuynbpcmw01.5 [degF]97.6-99.0October 2024 9:48amHeart Rate82 /mlp51-737Hrmltrq 2024 9:48amRespiratory rate16 /gux56-25Ekjoqbf 2024 9:48amOxygen saturation by Pulse %95-100October 2024 9:48amBP Wvbejvwh308 mm[Hg]100-140October 2024 9:48amBP Kettnsrer46 mm[Hg]60-100October 2024 9:48amBMI (Body Mass Index)39.8 kg/f7Boqvrhe 2024 9:48am Advance Directives Advance Directive Response Recorded Date/ Time Advance Directives No August 15, 2022 10:36am Insurance Providers Guarantor Supa Chong , III Address [address] [facility] [address]Qazcdqz Info.Home Phone: Coverage Status Update:2025 Payer Group Member ID Coverage Type Subscriber Relationship to Subscriber Effective Date Expiration Date Medicare [id number] Lewis , III Id: [id number] [address] [facility] [address] Home Phone: Email: [email or web address] Retired Id: [id number] Lewis , III Id: [id number] [address] [facility] [address] [facility] [address] Home Phone: Email: [email or web address] Encounters Encounter Location(s) Arrival/Admit Date Discharge/Departure Date Discharge/Departure Disposition Provider(s) Non-patient / Non-visit -[facility] Vascul ar Surg July 19, 2025 8:42pm Severino Mitchell MDNon-patient / [facility] July 26, 2025 12:00JONE Rauscheparted [facility]45amOctober 2024 9:46amDischarged to home care or self care (routine discharge)Lian Bhat MDDeparted Physician/Provider Office [facility] 9:30amOctober 2024 10:09amDischarged to home care or self care (routine discharge)Siena Newsome , CLIENT SUPPORT ANALYST Recent Diagnosis Onset Date Admit Date (HFpEF) heart failure with p reserved ejection fraction Unknown July 19, 2025 8:42pm Anemia of renal disease Unknown 2024 8:42pm End-stage renal disease on peritoneal dialysis U nknown July 19, 2025 8:42pm Gout Unknown July 19, 2025 8:42pm Hypertension Unknown July 19, 2025 8:42pm Hypertensive chronic kidney disease with stage 5 chronic kidney disease or Unknown July 19, 2025 8:42p m Acute hypoxic respiratory failure Unknown July 19, 2025 8:42pm Hypokalemia Unknown July 19, 2025 8:42pm Peritoneal dialysis catheter in place Unknown July 19, 2025 8:42pm Peritonitis associated with peritoneal dialysis Unknown July 19, 2025 8:42pm Pneumonia Unknown July 19, 2025 8:42pm Septic shock Unknown July 19, 2025 8:42pm Assessments Diagnosis Onset Date Resolution Status Admit Date (HFpEF) heart failure with preserved eje ction fraction acuteSept2024 8:42pmAnemia of renal diseaseacuteSept2024 8:42pmEnd-stage renal disease on peritoneal dialysisacuteSe2024 8:42pmGoutacuteSept2024 8:42pmHypertensionacuteSept2024 8:42pmHypertensive chronic kidney disease with stage 5 chronic kidney disease or acuteJuly 19, 2025 8:42pmAcute hypoxic respiratory failureresolved July 19, 2025 8:42pmHypokalemiaresolvedpt2024 8:42pm Peritoneal dialysis catheter in placeresolved2024 8:42pm Peritonitis associated with peritoneal dialysisresolvedpt2024 8:42pmPneumoniaresolvedpt2024 8:42pmSeptic shockresolvedpt2024 8:42pm Plan of Treatment Future Tests Future scheduled test information is unavailable Pending Tests Pending diagnostic test information is unavailable Future Visits Future appointment information is unavailable Future Procedures Procedure Name Ordered Date Scheduled Date Diet Supplement July 24, 2025 8:53am July 24, 2025 8:53am Admit Status Order July 19, 2025 9:40pm S eptember 2024 9:40pm Post Anesthesia Tracer order July 22 11:34am July 22, 2025 11:45am Discharge Order July 29, 2025 2:39pm July 29, 2025 2:39pm Consult to Infectious Diseases July 21, 2025 5:36pm July 21, 2025 5:36p m Consult to Nephrology July 19, 2025 9:40p m July 19, 2025 9:40pm Consult to Vascular Surgery July 22, 2025 10:03am July 22, 2025 10:04am Future Medications Future medication information is unavailable Patient Instructions Patient instructions are unavailable
[2025-09-04 14:01] VITALS: BP 148/63; PULSE 81; TEMP 36.8; O2SAT 95; BMI 89.8
--- NOTE | 2025-09-04 14:32 | ED.ABDPAIN1 ---
HPI - Abdominal Pain General Chief Complaint: Abdominal Pain Stated Complaint: DIARRHEA ABDOMINAL DISCOMFORT Time Seen by Provider: 09/04/25 13:58 History of Present Illness HPI narrative: The patient is a 70 years old male who recently switch from peritoneal dialysis to hemodialysis he had a infection to the peritoneal dialysis site, and then he was started on antibiotic who took the last dose of vancomycin with dialysis last week the patient, according to his complaint today he has been having abdominal pain, the abdominal pain is mostly crampy and it is all over the abdomen that comes only after the dialysis and continued for few hours associate with some dry heaving some time although he is still tolerating p.o. intake, today right now the patient does not have any abdominal pain most of the time when the abdominal pain happened he had just to go to the bathroom and have a bowel movement and that will resolve the pain, and usually that will help with the pain to go away but after 20 minutes he might have to go to the bathroom again The patient denies any blood in stool he denies any other complaint and he does not have any pain at the moment Related Data Home Medications ?Medication ?Instructions ?Recorded ?Confirmed acetaminophen 325 mg tablet 650 mg PO Q4H PRN fever or pain 08/09/24 08/09/24 albuterol sulfate 2.5 mg/3 mL 2.5 mg inhalation Q4H PRN 08/09/24 08/09/24 (0.083 %) solution for nebulization shortness of breath or wheezing atorvastatin 80 mg tablet 80 mg PO QPM 08/09/24 08/09/24 brimonidine 0.2 % eye drops 1 drp ophthalmic (eye) BID 08/09/24 08/09/24 calcitriol 0.25 mcg capsule 0.25 mcg PO .3 times a wk 08/09/24 08/09/24 cholecalciferol (vitamin D3) 1,250 1,250 mcg PO QWEEK 08/09/24 08/09/24 mcg (50,000 unit) capsule dorzolamide 2 % eye drops 1 drp ophthalmic (eye) BID 08/09/24 08/09/24 ferrous sulfate 325 mg (65 mg 325 mg PO TID 08/09/24 08/09/24 iron) tablet furosemide 80 mg tablet (Lasix) 80 mg PO BID 08/09/24 08/09/24 gabapentin 300 mg capsule 300 mg PO QPM 08/09/24 08/09/24 gentamicin 0.1 % topical cream 1 applic topical DAILY 08/09/24 08/09/24 latanoprost 0.005 % eye drops 1 drp ophthalmic (eye) QPM 08/09/24 08/09/24 magnesium oxide 400 mg (241.3 mg 400 mg PO BID 08/09/24 08/09/24 magnesium) tablet omeprazole 20 mg capsule,delayed 40 mg PO DAILY 08/09/24 08/09/24 release pilocarpine HCl 2 % eye drops 1 drp ophthalmic (eye) BID 08/09/24 08/09/24 sevelamer carbonate 800 mg tablet 1,600 mg PO TID 08/09/24 08/09/24 sulfamethoxazole 800 1 tab PO BID 08/09/24 08/09/24 mg-trimethoprim 160 mg tablet timolol maleate (PF) 0.5 % eye 1 drp ophthalmic (eye) BID 08/09/24 08/09/24 drops in a dropperette verapamil 240 mg tablet,extended 240 mg PO DAILY 08/09/24 08/09/24 release vitamin B complex-vitamin C-folic 1 tab PO DAILY 08/09/24 08/09/24 acid 800 mcg chewable tablet (Dialyvite 800) Previous Rx's ?Medication ?Instructions ?Recorded ciprofloxacin HCl 250 mg tablet 250 mg PO BID 3 days #6 tabs 08/09/24 (Cipro) nirmatrelvir 150 mg (10)-ritonavir See Rx Instructions PO .COMPLEX 08/09/24 100 mg (10) tablets in a dose pack #20 ea (Paxlovid) Allergies Allergy/AdvReac Type Severity Reaction Status Date / Time cephalexin (From Bandwidth) Allergy Severe icthing Verified 09/04/25 14:08 Review of Systems ROS Status of ROS 10 or more systems reviewed and unremarkable except as noted in history and below PFSH PFSH Social History Smoking status: Never smoker Little interest or pleasure in doing things: not at all Feeling down, depressed, or hopeless: not at all Exam Narrative Exam Narrative: Nurses notes and vital signs reviewed and patient is not hypoxic. General: Well-appearing and in no apparent distress. Skin: Warm, dry, no pallor noted. No rash. Head: Normocephalic, atraumatic. Neck: Supple, non-tender. Cardiovascular: Regular Rate and Rhythm without murmur, gallop or rub. Respiratory: No accessory muscle use or respiratory distress. Lungs are clear to auscultation, no wheezing, rales or rhonchi Chest Wall: no tenderness there is a Colby catheter in the right upper chest Back: No midline thoracic or lumbar vertebral tenderness. No CVA tenderness Musculoskeletal: normal ROM, no calf or popliteal tenderness, no lower extremity edema/swelling GI: Abdomen is soft, non-distended. Normal bowel sounds. No masses appreciated. No tenderness to palpation. No rebound, guarding, or rigidity noted. Neurological: A&O x4. No cranial nerve dysfunction observed. No truncal ataxia. Moves all extremities. Sensation intact. Psychiatric: Cooperative and interactive. Normal mood and affect. Constitutional Vital Signs, click to edit/add: Last Vital Signs Temp 98.2 F 09/04/25 14:01 Pulse 81 09/04/25 14:01 Resp 18 09/04/25 14:01 BP 148/63 H 09/04/25 14:01 Pulse Ox 95 09/04/25 14:01 O2 Del Method Room Air 09/04/25 14:01 Course Vital Signs Vital signs: Vital Signs Temperature 98.2 F 09/04/25 14:01 Pulse Rate 81 09/04/25 14:01 Respiratory Rate 18 09/04/25 14:01 Blood Pressure 148/63 H 09/04/25 14:01 Pulse Oximetry 95 09/04/25 14:01 Oxygen Delivery Method Room Air 09/04/25 14:01 Temperature 98.2 F 09/04/25 14:01 Pulse Rate 81 09/04/25 14:01 Respiratory Rate 18 09/04/25 14:01 Blood Pressure 148/63 H 09/04/25 14:01 Pulse Oximetry 95 09/04/25 14:01 Oxygen Delivery Method Room Air 09/04/25 14:01 MDM - Abdominal Pain MDM Narrative Medical decision making narrative: The patient does not have any current abdominal examination and he does not have any pain at the moment The patient CBC and chemistry showed no acute pathology and no leukocytosis and the creatinine only elevated with no elevated potassium no elevated BUN With the way the patient is describing his symptoms his presentation of abdominal pain could be secondary to dialysis rate and fluid intake I did try to reach Dr. Winchester the quality assurance analyst taking care of the patient to inform him of this finding specially that the patient recently was started on hemodialysis and he was not peritoneal dialysis before. The patient already had an x-ray done 3 days ago that was negative for any acute pathology and his pain is not consistent with any continuous problem of small bowel obstruction he have no nausea no vomiting at the moment and the pain is only related to the period of time after hemodialysis. I tried getting a stool sample from the patient right now especially that his recent intake of antibiotics but he did not provide any stool sample in the ER I did explain to them the importance of stool sample to be tested for C. difficile but although less likely it is still a possibility The patient daughter at the bedside mentioned that they will reach out to the quality assurance analyst tomorrow and dialysis at the patient supposed to get dialysis tomorrow and he is on his regular schedule Monday The patient to follow-up with the primary care within 2 to 3 days and to come back to the ER in case of any worsening of the current symptoms or any new symptoms or concerns Lab Data Labs: Lab Results 09/04/25 Range/Units 14:50 WBC 3.8 L (4.0-11.0) 10^3/uL RBC 3.66 L (4.70-6.10) 10^6/uL Hgb 11.0 L (14.0-18.0) g/dL Hct 36.4 L (42.0-54.0) % MCV 99.5 H (80.0-94.0) fL MCH 30.1 (25.9-34.0) pg MCHC 30.2 (29.9-35.2) g/dL RDW 14.6 (11.0-15.0) % Plt Count 262 (150-450) 10^3/uL MPV 9.0 L (9.5-13.5) fL Neut % (Auto) 68.2 (43.0-75.0) % Lymph % (Auto) 19.2 L (20.5-60.0) % Ritchie % (Auto) 9.9 (1.7-12.0) % Eos % (Auto) 1.9 (0.9-7.0) % Baso % (Auto) 0.8 (0.2-2.0) % Neut # (Auto) 2.6 (1.4-6.5) 10^3/uL Lymph # (Auto) 0.7 L (1.2-3.8) 10^3/uL Ritchie # (Auto) 0.4 (0.3-0.8) 10^3/uL Eos # (Auto) 0.1 (0.0-0.7) 10^3/uL Baso # (Auto) 0.0 (0.0-0.1) 10^3/uL Abs Immat Gran (auto) 0.00 (0.00-0.03) 10^3/uL Imm/Tot Granulo (auto) 0.0 (0.0-0.5) % Sodium 136 (136-145) mmol/L Potassium 4.5 (3.5-5.1) mmol/L Chloride 102 (98-107) mmol/L Carbon Dioxide 28.6 (21.0-32.0) mmol/L Anion Gap 9.9 BUN 12.0 (7.0-18.0) mg/dL Creatinine 7.22 H* (0.70-1.30) mg/dL Est GFR ( Amer) 9 L (>=60 mL/min/1.73m^2) Est GFR (Non-Af Amer) 8 L (>=60 mL/min/1.73m^2) BUN/Creatinine Ratio 1.7 Glucose 102 (74-106) mg/dL Calcium 9.1 (8.5-10.1) mg/dL Total Bilirubin 0.4 (0.2-1.0) mg/dL AST 21 (15-37) U/L ALT 22 (16-63) U/L Alkaline Phosphatase 118 H (46-116) U/L Total Protein 7.8 (6.4-8.2) g/dL Albumin 2.5 L (3.4-5.0) g/dL Globulin 5.3 g/dL Albumin/Globulin Ratio 0.5 Discharge Plan Discharge Chief Complaint: Abdominal Pain Clinical Impression: Abdominal pain Patient Disposition: Home, Self-Care Time of Disposition Decision: 15:55 Condition: Good Mode of Transportation: Private Vehicle Prescriptions / Home Meds: No Action ciprofloxacin HCl [Cipro] 250 mg tablet 250 mg PO BID 3 Days Qty: 6 0RF acetaminophen 325 mg tablet 650 mg PO Q4H PRN (Reason: fever or pain) brimonidine 0.2 % drops 1 drp OPHTHALMIC (EYE) BID gabapentin 300 mg capsule 300 mg PO QPM gentamicin 0.1 % cream 1 applic TOPICAL DAILY atorvastatin 80 mg tablet 80 mg PO QPM latanoprost 0.005 % drops 1 drp OPHTHALMIC (EYE) QPM Patient Comments: left eye magnesium oxide 400 mg (241.3 mg magnesium) tablet 400 mg PO BID omeprazole 20 mg capsule,delayed release(DR/EC) 40 mg PO DAILY pilocarpine HCl 2 % drops 1 drp OPHTHALMIC (EYE) BID Patient Comments: left eye sevelamer carbonate 800 mg tablet 1,600 mg PO TID timolol maleate (PF) 0.5 % dropperette 1 drp OPHTHALMIC (EYE) BID verapamil 240 mg tablet extended release 240 mg PO DAILY sulfamethoxazole-trimethoprim 800-160 mg tablet 1 tab PO BID albuterol sulfate 2.5 mg /3 mL (0.083 %) solution for nebulization 2.5 mg inhalation Q4H PRN (Reason: shortness of breath or wheezing) cholecalciferol (vitamin D3) 1,250 mcg (50,000 unit) capsule 1,250 mcg PO QWEEK calcitriol 0.25 mcg capsule 0.25 mcg PO .3 times a wk Patient Comments: Mon, Wed, Fri Dialyvite 800 800 mcg tablet,chewable 1 tab PO DAILY dorzolamide 2 % drops 1 drp OPHTHALMIC (EYE) BID ferrous sulfate 325 mg (65 mg iron) tablet 325 mg PO TID furosemide [Lasix] 80 mg tablet 80 mg PO BID Paxlovid 150-100 mg tablets,dose pack See Rx Instructions .ROUTE .COMPLEX Qty: 20 0RF Rx Instructions: take ONE 150 mg tablet of nirmatrelvir with ONE 100 mg tablet of ritonavir twice daily for 5 days Hold atorvastatin while on Paxlovid Print Language: Telugu Instructions: Abdominal Pain (ED) Additional Instructions: Please make sure you reach out to the quality assurance analyst to explain that the symptoms are happening after dialysis The patient to follow-up with the primary care within 2 to 3 days and to come back to the ER in case of any worsening of the current symptoms or any new symptoms or concerns Referrals: Angel Luis Davis MD [Primary Care Provider, Family Practice] - 1 week Discharge Date/Time: 09/04/25 16:03
--- OUTSIDE RECORDS SUMMARY | 2025-09-04 14:43 | XMS_ITS | Clinical Summary ---
Author Organization [facility] Address [address], [address] [place] [address] Care Team Providers Care Shade Hanger Name Role Phone Unavailable Primary Care Provider Unavailabl e Social History Tobacco UseTypesPacks/DayYears UsedDateSmoking Tobacco: Never AssessedSex and Gender InformationValueDate RecordedSex Assigned at BirthNot on fileLegal Sex Male12/02/2012 5:44 PM ESTGender IdentityNot on fileSexual OrientationNot on file Plan of Treatment Health MaintenanceDue DateLast DoneCommentsDTaP/Tdap/Td vaccine (1 - Tdap) 1972Flu vaccine (#1)05/23/2025OVID-19 Vaccine (1 - 2023- season) 2025Respiratory Syncytial Virus (RSV) or age 60 yrs+ (1 - 1-dose 75+ series)2028Polio vaccineAged OutNo longer eligible based on patient's age to complete this topic Insurance
--- OUTSIDE RECORDS SUMMARY | 2025-09-04 14:43 | XMS_ITS | Clinical Summary ---
Author Organization [facility] Address [address] [place] [address] Care Team Providers Care Shellfish Weigher Name Role Phone Angel Luis Davis MD Primary Care Provider Family History Medical HistoryRelationCommentsDiabetesMotherHeart FailureMotherKidney failure MotherBrain CancerSisterCOPDSisterRelationStatusCommentsMotherSister Social History Tobacco UseTypesPacks/DayYears UsedDateSmoking Tobacco: Never AssessedArea Deprivation IndexAnswerDate RecordedNational Score (1-100), lower number is lower uvuf528410/31/2023State Score (1-10), lower number is lower gqkh50410/31/2023 Data from: https://www.neighborhoodatlas.medicine.[facility].edu/. Last address used for pyhwrxgpmji[address]/31/2023Sex and Gender InformationValueDate RecordedSex Assigned at BirthNot on fileLegal RlsKyeg40/02/2012 9:42 AM EST Gender IdentityNot on fileSexual OrientationNot on file Plan of Treatment Health MaintenanceDue DateLast DoneCommentsAnxiety Ghqhzkbdj31/17/1971Depression Uopviiapo06/17/1971Hepatitis C Pqlybmzaj35/17/1971DTaP,Tdap,Td Vaccine (1 - Tdap)1972Lipid Suquyqgxz10/17/1988CT Zdnxuyusicum22/17/1998Cologuard (FIT-DNA)04/08/19982351Pawvjqqbqoi19/17/1998Colorectal Cancer Aagmhpzyc99/17/1998 Diabetes Qelndhyhn30/17/1998Fecal Occult Blood04/08/19982101Moyzmxqqppnhb46/17/1998 Pneumococcal Vaccine: 50+ (1 of 1 - PCV)2003Shingrix Vaccine (1 of 2) 2003Advance Directive Cxrfhywxrr99/01/2025ovid-19 Vaccine ( - 2024- season)2025Influenza Vaccine (#1)2025RSV Vaccine (1 - 1-dose 75+ series)2028 Insurance Care Teams Team MemberRelationshipSpecialtyStart DateEnd Date Angel Luis Davis MD [address] [place] [address] PCP - GeneralFamily Vfeurnxv71/5/23
--- OUTSIDE RECORDS SUMMARY | 2025-09-04 14:43 | XMS_ITS | Clinical Summary ---
Author Organization [facility] Address [address] [place] [address] Phone Care Team Providers Care Pr Manager Name Role Phone Angel Luis Davis MD Primary Care Provider + Allergies Active AllergyReactionsCriticalityNoted DateCommentsCephalexinItchingMedium 08/14/2023 Medications MedicationSigDispense QuantityRefillsLast FilledStart DateEnd DateStatus allopurinol (Zyloprim) 100 mg tablet Take 1 tablet (100 mg) by mouth once daily.Active atorvastatin (Lipitor) 80 mg tablet Take 1 tablet (80 mg) by mouth once daily at bedtime.Active brimonidine (AlphaGAN) 0.2 % ophthalmic solution Administer 1 drop into both eyes 2 times a day.Active calcitriol (Rocaltrol) 0.5 mcg capsule Take 1 capsule (0.5 mcg) by mouth once daily.Active dorzolamide (Trusopt) 2 % ophthalmic solution Administer 1 drop into both eyes 2 times a day.Active furosemide (Lasix) 40 mg tablet Take 2 tablets (80 mg) by mouth 2 times a day.Active gabapentin (Neurontin) 300 mg capsule Take 1 capsule (300 mg) by mouth once daily at bedtime.Active omeprazole (PriLOSEC) [address] capsule Take 2 capsules (40 mg) by mouth once daily in the morning. Take before meals. Do not crush or chew.Active sodium bicarbonate 650 mg tablet Take 1 tablet (650 mg) by mouth 3 times a day with meals.Active timolol (Timoptic) 0.5 % ophthalmic solution Administer 1 drop into both eyes 2 times a day.Active verapamil SR (Calan-SR) 240 mg ER tablet Take 1 tablet (240 mg) by mouth once daily at bedtime. Do not crush or chew. Active hydrALAZINE (Apresoline) 100 mg tablet Take 1 tablet (100 mg) by mouth 3 times a day.Active valsartan (Diovan) 80 mg tablet Indications:Essential hypertensionTake 1 tablet (80 mg) by mouth once daily. 30 tablet 111ctive Active Problems ProblemNoted DateDiagnosed DateNonrheumatic aortic valve eppzzoyx78/23/2023 Dilated aortic root08/14/2023ialysis pzhweid8508/14/2023Stroke (cerebrum) 08/14/2023MI 39.0-39.9,adult08/14/2023Mixed tvmslyjqkmgagq32/23/2023out 08/14/20238909Qchfxub55/20/2023 Social History Tobacco UseTypesPacks/DayYears UsedDateSmoking Tobacco: NeverSmokeless Tobacco: Never Tobacco Cessation:Counseling Given: Not Answered Alcohol UseStandard Drinks/WeekCommentsNever0 (1 standard drink = 0.6 oz pure alcohol)Sex and Gender InformationValueDate RecordedSex Assigned at BirthNot on fileLegal FnxSduv1806/12/2023 12:22 PM EDTGender IdentityNot on fileSexual OrientationNot on file Last Filed Vital Signs Vital SignReadingTime TakenCommentsBlood Ektwnihc714/9008/14/2023 3:04 PM EDT Xwatk462808/14/2023 2:52 PM EDTTemperature--Respiratory Rate--Oxygen Saturation-- Inhaled Oxygen Concentration--Zaihne814 kg (296 lb)08/14/2023 2:52 PM EDTHeight 185.4 cm (6' 1 )08/14/2023 2:52 PM EDTBody Mass Index39.0508/14/2023 2:52 PM EDT Plan of Treatment Health MaintenanceDue DateLast DoneCommentsCT Tnkrqddptmci1953Colonoscopy 1953olorectal Cancer Zwelekxwv1953FIT-DNA (Cologuard)1953FIT 1953Lipid Panel1953Medicare Annual Wellness Visit (AWV)1955 Osjqneujjkzxj1953MMR Vaccines (1 of 1 - Standard series)1954 Hepatitis C Vegyvkyva58/17/1971Pneumococcal Vaccine (1 of 2 - PCV)1972 Hepatitis B Vaccines (1 of 3 - Risk Dialysis 4-dose series)1973 DTaP/Tdap/Td Vaccines (1 - Tdap)1975RSV High Risk: (Elderly (60+) or Population) (1 - Risk 50-74 years 1-dose series)2003Zoster Vaccines (1 of 2)2003Influenza Vaccine (#1)5COVID-19 Vaccine (1 - season)2025HIB VaccinesAged OutNo longer eligible based on patient's age to complete this topicHPV VaccinesAged OutNo longer eligible based on patient's age to complete this topicHepatitis A VaccinesAged OutNo longer eligible based on patient's age to complete this topicIPV VaccinesAged OutNo longer eligible based on patient's age to complete this topicMeningococcal VaccineAged OutNo longer eligible based on patient's age to complete this topic Rotavirus VaccinesAged OutNo longer eligible based on patient's age to complete this topic Insurance * Guarantor: Segun Chong III TypeRelation to PatientDate of BirthPhone Billing AddressPersonal/QkxkygOibt1955 [facility] [address] [place] [address] * Guarantor: Segun Chong III TypeRelation to PatientDate of BirthPhone Billing AddressPersonal/QamvsxMppd1955 [facility] [address] [place] [address] Care Teams Team MemberRelationshipSpecialtyStart DateEnd Date Angel Luis Davis MD PCP - General06/12/23
--- OUTSIDE RECORDS SUMMARY | 2025-09-04 14:43 | XMS_ITS | Clinical Summary ---
Author Organization [facility] [employer] tem Address [id number] [place] [address] Care Team Providers Care Process Laboratory Specialist Name Role Phone Angel Luis Davis MD Primary Care Provider Allergies Active AllergyReactionsCriticalityNoted IgiuGairgcubQusbjrmpklYttimiz56/18/2018 Medications MedicationSigDispense QuantityRefillsLast FilledStart DateEnd DateStatus verapamil SR (CALAN-SR) 240 mg CR tablet Take 1 tablet (240 mg total) by mouth nightly.05/31/2018Active omeprazole (PriLOSEC) 20 mg capsule Take 1 capsule (20 mg total) by mouth in the morning.Active atorvastatin (LIPITOR) 80 mg tablet Take 1 tablet (80 mg total) by mouth in the morning.09/04/2018Active gabapentin (NEURONTIN) 300 mg capsule Take 1 capsule (300 mg total) by mouth in the morning.Active hydrALAZINE (APRESOLINE) 50 mg tablet Take 1 tablet (50 mg total) by mouth in the morning and at bedtime.Active ferrous sulfate 325 (65 FE) mg tablet Take 1 tablet (325 mg total) by mouth daily with breakfast.Active allopurinoL (ZYLOPRIM) 100 mg tablet Take 1 tablet (100 mg total) by mouth in the morning.Active calcitrioL (ROCALTROL) 0.5 MCG capsule Take 1 capsule (0.5 mcg total) by mouth in the morning.Active furosemide (LASIX) 80 mg tablet Take 1 tablet (80 mg total) by mouth 2 (two) times a day.Active timolol maleate/latanoprost/PF (timoloL-latanoprost,PF,) 0.5-0.005 % drops Instill 1 drop to eye in the morning and at bedtime.Active latanoprost (XALATAN) 0.005 % ophthalmic solution Administer 1 drop into the left eye nightly.Active dorzolamide (TRUSOPT) 2 % ophthalmic solution Administer 1 drop to both eyes in the morning and 1 drop before bedtime.Active brimonidine (ALPHAGAN) 0.2 % ophthalmic solution Administer 1 drop to both eyes in the morning and 1 drop before bedtime.Active Active Problems ProblemNoted DateDiagnosed DucnIpowrflrsm27/01/2023Methicillin susceptible Staphylococcus aureus infection as the cause of diseases classified elsewhere 09/22/2023Severe sepsis without septic shock09/22/2023rimary hypertension 12/12/2022Mixed gpsmdpibbnknyb23/20/2023ESRD (end stage renal disease) on orjkwgdf21/20/2023History of CVA (cerebrovascular accident)12/12/2022MI 40.0- 44.9, adult12/13/2018Hematuria, zhnzacouvbk50/26/2018 Overview (09/17/2018): ==== 09/17/2018 ==== microscopic hematuria. Hematuria evaluation. Cytology. Cysto. Retrograde pyelogram. Patient has have renal insufficiency. Assessment & Plan (09/17/2018 3:15 PM EST): We reviewed today than any abnormality of the urinary tract including cancer, medical renal disease, infection, calculi, bleeding the diathesis, idiopathic, benign familial, BPH, or congenital anomaly could account for hematuria, and hence the importance of evaluation. The patient understands that all studies ordered must be completed in order to fully evaluate the urinary system. The patient acknowledges this and agrees. Acquired ypfxurha68/26/2018 Overview (07/23/2019): ==== 09/17/2018 ==== physical exam on covered some phimosis. Plan: Betamethasone ointment. B.i.d.. One month. 07/23 regulatory import Elevated PSA09/17/2018 Overview (09/17/2018): ==== 09/17/2018 ==== PSA a few occasions have been above 4. Rectal exam benign prostate. Plan: Repeat PSA Assessment & Plan (09/17/2018 3:06 PM EST): The etiologies of elevated PSA including prostate cancer, BPH, natural variation, laboratory error,recent ejaculation, instrumentation, clinical or subclinical infection were reviewed. Options of ultrasound prostate biopsy, active surveillance, repeating the test, or nonintervention were discussed. We discussed the lack of evidence supporting empiric antibiotics. Discussed risk finding prostate cancer in 1:3 men with a PSA above 4 and 1:4 men with a PSA above 3. Risks of biopsy including bleeding, infection, urinary retention, and false-negative results were reviewed. questions were answered. Encounters DateTypeDepartmentCare DjnrRubnigmohft44/27/2025 12:04 PM EDT - 07/19/2025 6:40 [facility] [address] [place] [address] Loree Edward MD Hypoxia (Primary Dx); Anemia, unspecified type; Hyponatremia; Community acquired pneumonia of left lower lobe of lung; Peritonitis ([facility] Discharge Disposition: [facility]07/19/20258923Cgivhh82/25/2025 8:48 PM EDT - 06/17/2025 1:14 [facility] [address] [place] [address] Zuhair Joseph MD Anemia, unspecified type (Primary Dx); Acute otitis externa of left ear, unspecified type Discharge Disposition: [facility]ic[facility] Cert06/16/2025Travelfrom Last 3 Months Family History Medical HistoryRelationNameCommentsNo Known ProblemsFatherCancerMaternal GrandfatherprostateDiabetesMaternal GrandmotherDiabetesMotherHeart failureMother RelationNameStatusCommentsFatherDeceasedMaternal GrandfatherMaternal Grandmother DeceasedMotherDeceased Social History Tobacco UseTypesPacks/DayYears UsedDateSmoking Tobacco: NeverSmokeless Tobacco: Never Tobacco Cessation:Counseling Given: Not Answered Alcohol UseStandard Drinks/WeekCommentsNo0 (1 standard drink = 0.6 oz pure alcohol)ChildcareAnswerDate EvqshghtLaykdqqwsJjtsxcu03/12/2019EmploymentAnswer Date ShhwnwbbXlifoevevwOrrpedw97/12/2019Hunger ScreeningAnswerDate Recorded Within the past 12 months we worried whether our food would run out before we got money to buy more.Never True07/19/2025Within the past 12 months the food we bought just didn't last and we didn't have money to get more.Never True 07/19/2025Purpose - LifeAnswerDate RecordedPurpose and direction in lifeUnknown 11/26/2020ex and Gender InformationValueDate RecordedSex Assigned at BirthNot on fileLegal RmcOsov2805/28/2015 11:22 AM EDTGender IdentityNot on fileSexual OrientationNot on file Last Filed Vital Signs Vital SignReadingTime TakenCommentsBlood Txlgtcxl027/7009 6:15 PM EDT Dsfeo78491/27/2025 6:15 PM IAMKkwyqgxvrxe34.4 ??C (99.3 ??F)07/19/2025 12:21 PM EDTRespiratory Xpwg057407/19/2025 6:15 PM EDTOxygen Gxnidzgkqr704%07/19/2025 6:15 PM EDTInhaled Oxygen Concentration--Rdtoca430.1 kg (300 lb)07/19/2025 12:17 PM CZGQtectr507.9 cm (6')07/19/2025 12:17 PM EDTBody Mass Index40.69007/19/2025 12:17 PM EDT Plan of Treatment Health MaintenanceDue DateLast DoneCommentsDepression Rsebhhkks05/17/1965Adult BMI Follow Up Plan1971DTaP,Tdap and Td Vaccines (1 - Tdap)1972Zoster (Shingles) Vaccine (1 of 2)2003RSV ( or age 60+ yrs) (1 - Risk 60- 74 years 1-dose series)2013Fall Risk Jjtbxaxwh08/17/2018Influenza Vaccine 06/23/2025dult BMI Bltbnsjeo73Tobacco Dwnhtpgej05/27/2026 07/19/2025 Medical Devices ImplantedTypeAreaManufacturerDevice IdentifierShelf Expiration DateModel / Serial / Thang Childress Rpl [id number] - Sna - [id number] Implanted:Qty: 3 on 07/10/2018 by Ron Cueva DO at [facility]: [employer] BD [id number] / NA / [id number] Procedures Procedure NamePriorityDate/TimeAssociated DiagnosisCommentsTROP I, HIGH SENSITIVITY 1 TOSTYGNU47/27/2025 1:[address] ABDOMEN AND PELVIS WO YTLULBAS09/27/2025 1:[address] CHEST WO UMECYBIU82/27/2025 1:[address] BRAIN WO RGKNFKQP11/27/2025 1:30 PM EDT SARS/FLU A+B/RSV BY NAAT/MOLECULAR (M4RT COLLECTION TUBE)STAT07/19/2025 1:04 PM EDT ECG 12-GKKJOJSK97/27/2025 12:47 PM EDT TROPONIN I, HIGH SENSITIVITY 0 YZKZXHIM56/27/2025 12:44 PM EDT B-TYPE NATRIURETIC YNWFBWFPOSX60/27/2025 12:44 PM EDT D-MUDPKYWDG08/27/2025 12:44 PM EDT TROPONIN I, HIGH SENSITIVITY 0 ZJRBALXR10/27/2025 12:44 PM EDT COMPREHENSIVE METABOLIC OGZAUILFO07/27/2025 12:44 PM EDT CBC WITH AUTO NYADLPZHBKLYILZX65/27/2025 12:44 PM EDT TRANSFUSE RED BLOOD SLMJQKkekhup03/25/2025 11:00 PM EDTREPEATED ABORHRoutine 06/16/2025 9:08 PM EDT TYPE AND BAGAPOGZLT82/25/2025 9:08 PM EDT COMPREHENSIVE METABOLIC HUTDDLZBM18/25/2025 9:08 PM EDT B-TYPE NATRIURETIC SCYKLRNKEOA81/25/2025 9:08 PM EDT XNYWOMGO21/25/2025 9:08 PM EDT PROTIME & ZVSOPFY4706/16/2025 9:08 PM EDT CBC WITH AUTO VPGQKXHGGYEYPALR94/25/2025 9:08 PM EDT CROSSMATCH OSCVkojmfc51/25/2025 9:00 PM EDT from Last 3 Months Results * (ABNORMAL) Troponin I, High Sensitivity 1 Hour (07/19/2025 1:45 PM EDT) ComponentValueRef RangeTest MethodAnalysis TimePerformed AtPathologist SignatureTROPONIN I, HIGH WTJBRJYBSBA85(H)<21 ng/L07/19/2025 2:49 PM EDT [facility]imen (Source)Anatomical Location / LateralityCollection Method / VolumeCollection TimeReceived TimeBloodVenous blood / UnknownVenipuncture / Xxmlanl0907/19/2025 1:45 PM EDT07/19/2025 1:47 PM EDT Narrative [facility] - 07/19/2025 2:49 PM EDT Elevations of hs-Troponin may be due to causes other than myocardial ischemia. Recommend serial hs-Troponin testing be performed. For the initial evaluation and management of chest pain patients, refer to the algorithms linked below. Emergency Patient: [email or web address] Inpatient: [email or web address] Authorizing ProviderResult TypeResult StatusNagómez MCKAY BLOOD ORDERABLES Final ResultPerforming OrganizationAddressCity/State/ZIP CodePhone Number [facility] [address] [place] [address], [place] * CT abdomen and pelvis without contrast (07/19/2025 1:31 PM EDT)Anatomical RegionLateralityModalityBody, Abdomen, Body CoveraN/AComputed Tomography Specimen (Source)Anatomical Location / LateralityCollection Method / Volume Collection TimeReceived Time07/19/2025 2:54 PM EDT Narrative 07/19/2025 3:17 PM EDT CLINICAL INFORMATION: peritoneal dialysis/fever/fatigue. COMPARISON: 09/16/2023. TECHNIQUE: CT of the abdomen and pelvis without intravenous contrast.. All CT scans at this facility use dose modulation, iterative reconstruction, and/or weight based dosing when appropriate to reduce radiation dose to as low as reasonably achievable. FINDINGS: Limited evaluation of the solid organs and vessels in the absence of IV contrast. CT of the chest was performed contemporaneously but dictated separately. Gallbladder is present. No hepatobiliary ductal dilation. Noncirrhotic liver morphology. No ductal dilation or peripancreatic inflammatory changes. Dystrophic calcification within the pancreatic head/uncinate process. Similar perisplenic fluid collection. Splenomegaly measuring up to 18 cm. Ill- defined area of low attenuation within the inferior pole of the spleen. Unremarkable adrenal glands. Atrophic [place] kidneys. Multiple exophytic renal lesions some of which are intermediate in attenuation. Consider dedicated MRI for further assessment to exclude insidious process. Colonic diverticulosis. Small volume abdominal fluid. There is a complex left lateral hernia containing heterogeneous fat and multiple fluid collections within the left lateral abdominal wall soft tissues. Hazy heterogeneous of the left peritoneum in this region. Dialysis catheter is coiled in the right lower quadrant. Atherosclerotic calcification of the abdominal aorta. Abdominal aorta is nonaneurysmal. Dilation ofthe right common iliac artery measuring up to 2.4 cm. Dilation of the left iliac artery up to 1.9 cm. No enlarged mesenteric or retroperitoneal lymph nodes by CT size criteria within limitations of noncontrast technique. Indeterminate fracture deformity at L2 with moderate height loss. Superior endplate irregularity D4nhfnrbjv more conspicuous than prior exam. Multilevel degenerative changes of the lumbar spine. IMPRESSION: Complex left lateral abdominal wall hernia containing fat and multiple fluid collections within theleft lateral abdominal wall soft tissues. Associated heterogeneity and stranding within the left peritoneum. Cannot exclude infection/peritonitis. Correlate clinically. Splenomegaly. Ill-defined region of hypoattenuation within the lower pole of the spleen which is indeterminate. Considerations include prior injury, infarct, infection. Age-indeterminate fracture deformity at L2 with moderate height loss. Additional findings detailed in the body of the report. Finalized by Anton Warner MD on 07/19/2025 3:17 PM Procedure Note Anton Warner MD - 07/19/2025 CLINICAL INFORMATION: peritoneal dialysis/fever/fatigue. COMPARISON: 09/16/2023. TECHNIQUE: CT of the abdomen and pelvis without intravenous contrast.. AllCT scans at this facility use dose modulation, iterative reconstruction,and/or weight based dosing when appropriate to reduce radiation dose to aslow as reasonably achievable. FINDINGS: Limited evaluation of the solid organs and vessels in the absence of IVcontrast. CT of the chest was performed contemporaneously but dictated separately. Gallbladder is present. No hepatobiliary ductal dilation. Noncirrhoticliver morphology. No ductal dilation or peripancreatic inflammatory changes. Dystrophic calcification within the pancreatic head/uncinate process. Similar perisplenic fluid collection. Splenomegaly measuring up to 18 cm.Ill- defined area of low attenuation within the inferior pole of thespleen. Unremarkable adrenal glands. Atrophic [place] kidneys. Multiple exophytic renal lesions some of whichare intermediate in attenuation. Consider dedicated MRI for furtherassessment to exclude insidious process. Colonic diverticulosis. Small volume abdominal fluid. There is a complexleft lateral hernia containing heterogeneous fat and multiple fluidcollections within the left lateral abdominal wall soft tissues. Hazyheterogeneous of the left peritoneum in this region. Dialysis catheter iscoiled in the right lower quadrant. Atherosclerotic calcification of the abdominal aorta. Abdominal aorta is nonaneurysmal. Dilation of the right common iliac artery measuring up to2.4 cm. Dilation of the left iliac artery up to 1.9 cm. No enlarged mesenteric or retroperitoneal lymph nodes by CT size criteriawithin limitations of noncontrast technique. Indeterminate fracture deformity at L2 with moderate height loss. Superior endplate irregularity L3 somewhat more conspicuous than prior exam.Multilevel degenerative changes of the lumbar spine. IMPRESSION: Complex left lateral abdominal wall hernia containing fat and multiplefluid collections within the left lateral abdominal wall soft tissues.Associated heterogeneity and stranding within the left peritoneum. Cannotexclude infection/peritonitis. Correlate clinically. Splenomegaly. Ill-defined region of hypoattenuation within the lower poleof the spleen which is indeterminate. Considerations include prior injury,infarct, infection. Age-indeterminate fracture deformity at L2 with moderate height loss. Additional findings detailed in the body of the report. Finalized by Anton Warner MD on 07/19/2025 3:17 PM Authorizing ProviderResult TypeResult StatusNahitania Edward MDIMG CT ORDERABLES Final Result * CT chest without contrast (07/19/2025 1:31 PM EDT)Anatomical RegionLaterality ModalityBody, Lung, Chest, Body CoveraN/AComputed TomographySpecimen (Source) Anatomical Location / LateralityCollection Method / VolumeCollection Time Received Time07/19/2025 1:35 PM EDT Narrative 07/19/2025 1:[address] CHEST WO CONT: 07/19/2025 1:15 PM Clinical: EXAM: ??CT CHEST WITHOUT IV CONTRAST Procedure: ?? Multidetector spiral CT scan of the chest was performed without administration of intravenous contrast. Coronal and sagittal reformatted images were obtained and reviewed. Automated exposure control was utilized. All CT scans at this facility use dose modulation, iterative reconstruction, and/or weight based dosing when appropriate to reduce radiation dose to as low as reasonably achievable. Comparison: none Findings: ?? Quality: Motion limited exam. Lungs/airway/pleural: * ??Small left pleural effusion. * ??Elevated left hemidiaphragm with patchy infiltrate or atelectasis in the left lower lobe. * ??Small patchy infiltrate in the superior segment right lower lobe. * ??Patent trachea and mainstem bronchi. Mediastinum/gerson: * ??Evaluation limited without IV contrast. * ??No enlarged lymph nodes in gerson or mediastinum. Heart/vascular: * ??Coronary artery calcifications: Present.. * ??No pericardial effusion. * ??Normal caliber thoracic aorta. Bones: * ??Thoracic degenerative changes. Upper abdomen: * ??See separate CT abdomen report. Impression: * ??Patchy infiltrate or atelectasis in left lower lobe with elevated left hemidiaphragm. * ??Small patchy infiltrate superior segment right lower lobe. Finalized by Frankie Lim MD on 07/19/2025 1:42 PM Procedure Note Frankie Lim MD - 07/19/2025 CT CHEST WO CONT: 07/19/2025 1:15 PM Clinical: EXAM: CT CHEST WITHOUT IV CONTRAST Procedure: Multidetector spiral CT scan of the chest was performed withoutadministration of intravenous contrast. Coronal and sagittal reformattedimages were obtained and reviewed. Automated exposure control wasutilized. All CT scans at this facility use dose modulation, iterativereconstruction, and/or weight based dosing when appropriate to reduceradiation dose to as low as reasonably achievable. Comparison: none Findings: Quality: Motion limited exam. Lungs/airway/pleural: * Small left pleural effusion. * Elevated left hemidiaphragm with patchy infiltrate or atelectasis inthe left lower lobe. * Small patchy infiltrate in the superior segment right lower lobe. * Patent trachea and mainstem bronchi. Mediastinum/gerson: * Evaluation limited without IV contrast. * No enlarged lymph nodes in gerson or mediastinum. Heart/vascular: * Coronary artery calcifications: Present.. * No pericardial effusion. * Normal caliber thoracic aorta. Bones: * Thoracic degenerative changes. Upper abdomen: * See separate CT abdomen report. Impression: * Patchy infiltrate or atelectasis in left lower lobe with elevated left hemidiaphragm. * Small patchy infiltrate superior segment right lower lobe. Finalized by Frankie Lim MD on 07/19/2025 1:42 PM Authorizing ProviderResult TypeResult StatusNagómez GARCIA CT ORDERABLES Final Result * CT brain without contrast (07/19/2025 1:30 PM EDT)Anatomical RegionLaterality ModalityNeuro, Head, Head and Neck, Neuro CoveraN/AComputed TomographySpecimen (Source)Anatomical Location / LateralityCollection Method / VolumeCollection TimeReceived Time07/19/2025 1:33 PM EDT Narrative 07/19/2025 1:[address] of the brain dated 07/19/2025 at 12:59 PM INDICATION: Weakness. PROCEDURE: Automatic radiation exposure lowering techniques were utilized. All CT scans at this facility use dose modulation, iterative reconstruction, and/or weight based dosing when appropriate to reduce radiation dose to as low as reasonably achievable.. A nonenhanced CT of the brain and sagittal and coronal reformats obtained. FINDINGS: Comparison is 09/16/2023. Linear high attenuation in the right cerebellum, partially obscured by artifact, could be acute or chronic, consider follow-up MRI. No midline shift. Ventricles and sulci are within normal limits. Atherosclerotic disease of the intracranial carotid arteries. No depressed skull fractures. There is partial opacification of left mastoid air cells. IMPRESSION: 1. Patchy high attenuation in the right cerebellum could be acute or chronic, consider follow-up MRI. 2. No midline shift or mass effect. Finalized by Charo Espinoza MD on 07/19/2025 1:37 PM Procedure Note Charo Espinoza MD - 07/19/[address] of the brain dated 07/19/2025 at 12:59 PM INDICATION: Weakness. PROCEDURE: Automatic radiation exposure lowering techniques were utilized.All CT scans at this facility use dose modulation, iterativereconstruction, and/or weight based dosing when appropriate to reduceradiation dose to as low as reasonably achievable.. A nonenhanced CT ofthe brain and sagittal and coronal reformats obtained. FINDINGS: Comparison is 09/16/2023. Linear high attenuation in the right cerebellum, partially obscured by artifact, could be acute or chronic,consider follow-up MRI. No midline shift. Ventricles and sulci are withinnormal limits. Atherosclerotic disease of the intracranial carotidarteries. No depressed skull fractures. There is partial opacification of left mastoidair cells. IMPRESSION: 1. Patchy high attenuation in the right cerebellum could be acute orchronic, consider follow-up MRI. 2. No midline shift or mass effect. Finalized by Charo Espinoza MD on 07/19/2025 1:37 PM Authorizing ProviderResult TypeResult StatusNahitania Edward MDIMRuben CT ORDERABLES Final Result * SARS/FLU A+B/RSV by NAAT/Molecular (M4RT Collection Tube) (07/19/2025 1:04 PM EDT)ComponentValueRef RangeTest MethodAnalysis TimePerformed AtPathologist SignatureFLU A ZUDToyxgagzKdewmpqs32/27/2025 1:59 PM EDTPKETTERING HEALTH DAYTONFLU B HSWDzhgdcegLguhqqbc21/27/2025 1:59 PM EDTPKETTERING HEALTH DAYTONRSV BY BARJmoidwqiZbcwohpn83/27/2025 1:59 PM EDT [facility]ARS COV 2 BY PCRNot DetectedNot Detected 07/19/2025 1:[address] [facility] (Source) Anatomical Location / LateralityCollection Method / VolumeCollection Time Received TimeSwabNasopharyngeal structure / Ermyudx5107/19/2025 1:04 PM EDT 07/19/2025 1:20 PM EDT Narrative [facility] - 07/19/2025 1:59 PM EDT The Xpert Xpress SARS-CoV-2/Flu/RSV Plus test is a rapid, multiplexed real-time RT-PCR test intended for the simultaneous qualitative detection and differentiation of SARS-CoV-2, influenza A, influenza B and respiratory syncytial virus (RSV) viral RNA from individuals suspected of respiratory viral infection consistent with COVID-19 by Their healthcare provider. This test has not been validated in asymptomatic patients. The Xpert Xpress SARS-CoV-2 test is intended for use by qualified and trained operators who are performing tests using either GeneWebcollage DX or GeneLoopUp systems and is limited to laboratories that meet the CLIA requirements to perform high and moderate complexity tests. The Xpert Xpress SARS-CoV-2/Flu/RSV Plus is only for use under the Food and Drug Administration's Emergency Use Authorization. Results are for the simultaneous detection and differentiation of SARS-CoV-2, influenza A, influenza B and RSV nucleic acids in clinical specimens. SARS-CoV-2, influenza A, influenza B and RSV RNA identified by this test are generally detectable in upper respiratory samples during the acute phase of infection. Positive results are Indicative of the presence of the identified virus, but do not rule out bacterial infection or co-infection with other pathogens not detected by this test. Clinical correlation with patient history and other diagnostic information is necessary to determine patient infection status. The agent detected may not be the definite cause of disease. Negative results do not preclude SARS-CoV-2, influenza A, influenza B and RSV infection and should not be used as the sole basis for treatment or other patient management decisions. Negative results must be combined with clinical observations, patient history and epidemiological information. An Invalid result may occur with specimen-associated inhibition unable to be resolved with specimen repeat. Fact Sheet for Healthcare Providers: ?? https://www.fda.gov/media/426014/download ? Fact Sheet for Patients: ?? https://www.[employer].gov/media/817405/download ?? Authorizing ProviderResult TypeResult StatusLoree Edward [facility] DAYTONICROBIOLOGY - GENERAL ORDERABLESFinal ResultPerforming OrganizationAddressCity/State/ZIP Code Phone Number [facility] [address] [place] [address], * ECG 12 lead (07/19/2025 12:47 PM EDT)Specimen (Source)Anatomical Location / LateralityCollection Method / VolumeCollection TimeReceived Time07/19/2025 12:47 PM EDT Narrative [facility] - 07/24/2025 7:55 AM EDT Authorizing ProviderResult TypeResult Martinez Edward MDECG ORDERABLESFinal ResultPerforming OrganizationAddressCity/State/ZIP CodePhone Number [facility] * (ABNORMAL) Troponin I, High Sensitivity 0 Hour (07/19/2025 12:44 PM EDT) ComponentValueRef RangeTest MethodAnalysis TimePerformed AtPathologist SignatureTROPONIN I, HIGH AUOKJKGJGTS16(H)<21 ng/L07/19/2025 1:25 PM EDT [facility] HOSPITALpecimen (Source)Anatomical Location / LateralityCollection Method / VolumeCollection TimeReceived TimeBloodVenous blood / UnknownVenipuncture / Ohsepix7707/19/2025 12:44 PM EDT07/19/2025 12:52 PM EDT Narrative Authorizing ProviderResult TypeResult StatusNagómez MCKAY BLOOD ORDERABLES Final ResultPerforming OrganizationAddressCity/State/ZIP CodePhone Number [facility] [address] [place] [address], [place] * (ABNORMAL) CBC auto differential (07/19/2025 12:44 PM EDT) Only the most recent of2 resultswithin the time period is included. ComponentValueRef RangeTest MethodAnalysis TimePerformed AtPathologist Signature WBC9.94 - 11 x10E9/L07/19/2025 12:58 PM [facility] RBC Count2.42(L)4.1 - 5.7 X10E12/L07/19/2025 12:58 PM EDREG[facility] WESTHemoglobin8.2(L)13 - 17 g/dL07/19/2025 12:58 PM EDTPKETTER[facility]ALTH DAYTONHematocrit23.5(L)39 - 50 %07/19/2025 12:58 PM EDT [facility]MCV9780 - 100 fL07/19/2025 12:58 PM EDT [facility]MCH33.827 - 34 pg07/19/2025 12:58 PM EDT [facility]ITALMCHC34.732 - 36 g/dL07/19/2025 12:58 PM EDT [facility]ITALRDW17.3(H)11.5 - 15 %07/19/2025 12:58 PM EDT [facility]ITALPlatelet Pikgw834307 - 450 X10E9/L07/19/2025 12:58 PM EDTPKETTERING HEALTH DAYTONMPV7.47 - 12 fL07/19/2025 12:58 PM EDTPKETTERING [facility]ALTH DAYTONNeutrophils %78.8%07/19/2025 12:58 PM EDTPKETTERING [facility]ALTH DAYTONLymphocytes %10.3%07/19/2025 12:58 PM EDT [facility]ITALMonocytes %9.2%07/19/2025 12:58 PM EDT [facility]ITALEosinophils %0.9%07/19/2025 12:58 PM EDT [facility]ITALBasophils %0.8%07/19/2025 12:58 PM EDT [facility]ITALNeutrophils Absolute (A)7.8(H)1.5 - 6.6 10*3/uL07/19/2025 12:58 PM EDTPKETTERING HEALTH DAYTONLymphocytes Absolute1.01.0 - 3.5 10*3/uL07/19/2025 12:58 PM EDTPKETTERING HEALTH DAYTONMonocytes Absolute0.90.0 - 0.9 10*3/07/19/2025 12:58 PM EDREG[facility] WESTEosinophils Absolute0.10.0 - 0.4 10*3/uL07/19/2025 12:58 PM EDTPKETTERING HEALTH DAYTONBasophils Absolute0.10.0 - 0.2 10*3/uL07/19/2025 12:58 PM [facility]ITALDifferential TypeAUTOMATED FJZJPFZFCXZT59/27/2025 12:[address] [facility] (Source)Anatomical Location / LateralityCollection Method / VolumeCollection TimeReceived TimeBloodVenous blood / UnknownVenipuncture / Lhysydx6407/19/2025 12:44 PM EDT07/19/2025 12:52 PM EDT Narrative Authorizing ProviderResult TypeResult StatusNahitania Edward MDLAB BLOOD ORDERABLES Final ResultPerforming OrganizationAddressCity/State/ZIP CodePhone Number [facility] [address] [place] [address], * (ABNORMAL) D-Dimer (07/19/2025 12:44 PM EDT)ComponentValueRef RangeTest Method Analysis TimePerformed AtPathologist SignatureD SSNZC576(H)1 - 255 ng/mL 07/19/2025 1:14 PM [facility]OSPITALComment:Results >255 ng/mL DDU: Results may be indicative of the presence of VTE. The use of the Wells score and further diagnostic tests should be considered. Elevated D- Dimer levels can be associated with DIC, neoplasm, , trauma and liver disease. Elevated levels of rheumatoid factor may leadto an overestimation of the D-Dimer level.Specimen (Source)Anatomical Location / LateralityCollection Method / VolumeCollection TimeReceived TimeBloodVenous blood / Unknown Venipuncture / Vubmrew5407/19/2025 12:44 PM EDT07/19/2025 12:52 PM EDT Narrative Authorizing ProviderResult TypeResult StatusLoree Edward MDLAB BLOOD ORDERABLES Final ResultPerforming OrganizationAddressCity/State/ZIP CodePhone Number [address] [address], [place] * B-type natriuretic peptide (07/19/2025 12:44 PM EDT) Only the most recent of2 resultswithin the time period is included. ComponentValueRef RangeTest MethodAnalysis TimePerformed AtPathologist Signature BNP69<=100 pg/mL07/19/2025 1:21 PM [facility] Specimen (Source)Anatomical Location / LateralityCollection Method / Volume Collection TimeReceived TimeBloodVenous blood / UnknownVenipuncture / Unknown 07/19/2025 12:44 PM EDT07/19/2025 12:52 PM EDT Narrative Authorizing ProviderResult TypeResult StatusNavatania Edward MDLAB BLOOD ORDERABLES Final ResultPerforming OrganizationAddressty/State/ZIP CodePhone Number [address] [place] [address], [place] * (ABNORMAL) Comprehensive metabolic panel (07/19/2025 12:44 PM EDT) Only the most recent of2 resultswithin the time period is included. ComponentValueRef RangeTest MethodAnalysis TimePerformed AtPathologist Signature IIROCD222(L)134 - 146 mmol/L07/19/2025 1:21 PM [facility]OSPITALPOTASSIUM3.83.5 - 5.0 mmol/L07/19/2025 1:21 PM [facility]ITALComment:R-Specimen hemolyzed, results srodtfxzrCCHFDBWD60(L)98 - 109 mmol/L07/19/2025 1:21 PM [facility] HOSPITALCARBON KEGUVXX6248 - 32 mmol/L07/19/2025 1:21 PM [facility] ANION PKG703 - 15 mmol/L07/19/2025 1:21 PM [facility] HOSPITALBLOOD UREA BDJXTSNL60(H)5 - 27 mg/dL07/19/2025 1:21 PM [facility] HOSPITALCREATININE11.75(H)0.70 - 1.20 mg/dL07/19/2025 1:21 PM [facility]ITALComment:METHOD TRACEABLE TO IDMS STANDARD JXMCQWH933(H)65 - 99 mg/dL07/19/2025 1:21 PM [facility] HOSPITALCALCIUM8.88.5 - 10.5 mg/dL07/19/2025 1:21 PM [facility] HOSPITALTOTAL PROTEIN7.76.0 - 8.0 g/dL07/19/2025 1:21 PM [facility] HOSPITALALBUMIN2.3(L)3.2 - 5.3 g/dL07/19/2025 1:21 PM EDT [facility]ITALALKALINE NMAHMOHLRLR5136 - 130 U/L07/19/2025 1:21 PM [facility]ITALAST36<=41 U/L07/19/2025 1:21 PM [facility]ALT24<=40 U/L07/19/2025 1:21 PM EDT [facility]ITALBILIRUBIN,TOTAL1.00.3 - 1.2 mg/dL07/19/2025 1:21 PM [facility]ITALComment:R-Results questionable due to hemolysisEGFR Non-Race Dependent4(L)>=60 ml/min/1.73sq.m007/19/2025 1:21 PM [facility]ITALComment: eGFR not reported due to non-numeric value for Creatinine. Reported eGFR is based on the CKD-EPI 2020 equation that does not use a race coefficient. Specimen (Source)Anatomical Location / LateralityCollection Method / Volume Collection TimeReceived TimeBloodVenous blood / UnknownVenipuncture / Unknown 07/19/2025 12:44 PM EDT07/19/2025 12:52 PM EDT Narrative Authorizing ProviderResult TypeResult StatusLoree Edward MDLAB BLOOD ORDERABLES Final ResultPerforming OrganizationAddressCity/State/ZIP CodePhone Number [address] [place] [address], [place] * Transfuse RBC:1 Unit (06/17/2025 1:09 AM EDT) Narrative Authorizing ProviderResult TypeResult Kate MEHTA TRANSFUSION ORDERABLESFinal Result * ABO Rh Repeat (06/16/2025 9:08 PM EDT)ComponentValueRef RangeTest Method Analysis TimePerformed AtPathologist SfnkzvpydSUFE83/25/2025 10:15 PM EDT [facility]ITALRHPositive06/16/2025 10:15 PM [facility]TPMart[facility] (Source)Anatomical Location / Laterality Collection Method / VolumeCollection TimeReceived TimeBloodVenous blood / UnknownVenipuncture / Yzkbnnq5606/16/2025 9:08 PM EDT06/16/2025 9:18 PM EDT Narrative Authorizing ProviderResult TypeResult Kate MEHTA BANK TEST ORDERABLESFinal ResultPerforming OrganizationAddressty/State/ZIP CodePhone Number [facility] [address] [place] [address], [place] [address] [place] [address], * APTT (06/16/2025 9:08 PM EDT)ComponentValueRef RangeTest MethodAnalysis Time Performed AtPathologist LjjvwffplGWHY1480 - 37 sec06/16/2025 9:29 PM EDT [facility] (Source)Anatomical Location / LateralityCollection Method / VolumeCollection TimeReceived TimeBloodVenous blood / UnknownVenipuncture / Rfgqrra9506/16/2025 9:08 PM EDT06/16/2025 9:18 PM EDT Narrative Authorizing ProviderResult TypeResult StatusZuhair MCKAY BLOOD ORDERABLES Final ResultPerforming OrganizationAddressCity/State/ZIP CodePhone Number [address] [place] [address], [place] * Protime & INR (06/16/2025 9:08 PM EDT)ComponentValueRef RangeTest Method Analysis TimePerformed AtPathologist EaicevyknLBPIPKO94.99.8 - 13.2 sec 06/16/2025 9:29 PM EDTPKETTERING HEALTH DAYTONINR1.00.9 - 1.2 06/16/2025 9:29 PM [facility] (Source) Anatomical Location / LateralityCollection Method / VolumeCollection Time Received TimeBloodVenous blood / UnknownVenipuncture / Dijqaut3406/16/2025 9:08 PM EDT06/16/2025 9:18 PM EDT Narrative Authorizing ProviderResult TypeResult StatusZuhair MCKAY BLOOD ORDERABLES Final ResultPerforming OrganizationAddressty/State/ZIP CodePhone Number [address] [place] [address], [place] * Type and screen(includes indirect sabino) (06/16/2025 9:08 PM EDT)Component ValueRef RangeTest MethodAnalysis TimePerformed AtPathologist SignatureABOB 06/16/2025 10:18 PM EDTPKETTERING HEALTH DAYTONRHPositive06/16/2025 10:18 PM EDTPKETTERING HEALTH DAYTONAntibody ScreenNegative 06/16/2025 10:18 PM EDAs[facility] (Source) Anatomical Location / LateralityCollection Method / VolumeCollection Time Received TimeBloodVenous blood / UnknownVenipuncture / Ackldpj4006/16/2025 9:08 PM EDT06/16/2025 9:18 PM EDT Narrative Authorizing ProviderResult TypeResult Kate ANGUIANOOOD BANK TEST ORDERABLESEdited Result - FinalPerforming OrganizationAddressCity/State/ZIP Code Phone Number [facility] [address] [place] [address]. [place] [address], [address] [place] [address], * Crossmatch RBC:Number of Units: 1 (06/16/2025 9:00 PM EDT)ComponentValueRef RangeTest MethodAnalysis TimePerformed AtPathologist SignatureBlood component lknmW5460F87EHYQAKUGQFORT HAMILTON HOSPITALUnit [id number]-H [facility]Un ABOOPROUNIVERSITY OF CALIFORNIA, IRVINE MEDICAL CENTERUnit RHPOSFORT HAMILTON HOSPITALCrossmatchCompatible [facility]ITALtatus of unitTRANSFUSEDPROMEDEDEN MEDICAL CENTERExpiration [id number] HAMILTON HOSPITALBB Type Eipmckx9619ETCLSBEFWMERCY HEALTH FAIRFIELD HOSPITALpecimen (Source)Anatomical Location / LateralityCollection Method / VolumeCollection TimeReceived TimeBloodVenous blood / Unokscf9006/16/2025 9:00 PM EDT06/16/2025 9:36 PM EDT Narrative Authorizing ProviderResult TypeResult StatusParadha Joseph MDBLLISA BANK PRODUCT ORDERABLESEdited Result - FinalPerforming OrganizationAddressCity/State/ZIP Code Phone Number [address] [place] [address], from Last 3 Months Insurance Care Teams Team MemberRelationshipSpecialtyStart DateEnd Date Angel Luis Davis MD PCP - Fcxghjk17/24/23
--- OUTSIDE RECORDS SUMMARY | 2025-09-04 14:43 | XMS_ITS | Clinical Summary ---
Author Organization [facility] Address [address] [place] [address] Care Team Providers Care Toll Lineman Name Role Phone Unavailable Primary Care Provider Unavailabl e Allergies Active AllergyReactionsCriticalityNoted HupvFyynrphrWuaeundtkdOwdmncg76/18/2018 Medications MedicationSigDispense QuantityRefillsLast FilledStart DateEnd DateStatus gabapentin (Neurontin) 300 MG capsule Take 300 mg by mouth in the morning.Active hydrALAZINE (Apresoline) 50 MG tablet Take 25 mg by mouth in the morning and 25 mg before bedtime.Active ferrous sulfate 325 (65 Fe) MG EC tablet Take 325 mg by mouth in the morning and 325 mg at noon and 325 mg in the evening. Take with meals. Do not crush, chew, or split. .Active calcitriol (Rocaltrol) 0.5 MCG capsule Take 0.5 mcg by mouth in the morning.Active omeprazole (PriLOSEC) [address] capsule Take 20 mg by mouth in the morning. Take before meals. Do not crush or chew. . Active furosemide (Lasix) 80 MG tablet Take by mouth.Active atorvastatin (Lipitor) 80 MG tablet Take 80 mg by mouth in the morning.Active timolol (Timoptic) 0.5 % ophthalmic solution Administer 1 drop into both eyes in the morning and 1 drop before bedtime.Active latanoprost (Xalatan) 0.005 % ophthalmic solution Administer 1 drop into the left eye at bedtime.Active dorzolamide (Trusopt) 2 % ophthalmic solution Administer 1 drop into both eyes in the morning and 1 drop in the evening and 1 drop before bedtime.Active brimonidine (AlphaGAN P) 0.2 % ophthalmic solution Administer 1 drop into both eyes in the morning and 1 drop before bedtime.Active verapamil SR (Calan SR) 240 MG ER tablet Indications:Primary hypertensionTAKE 1 TABLET BY MOUTH EVERY DAY 90 tablet ctive allopurinol (Zyloprim) 100 MG tablet Indications:Gout, unspecified,Gouty arthropathyTAKE 1 TABLET BY MOUTH EVERY DAY 90 tablet ctive Active Problems ProblemNoted DateDiagnosed DateBell's palsy11/29/2023hronic cluster headache 11/29/2023 Assessment & Plan (11/29/2023 11:12 AM EST): ALBERT well controlled with verapamil and continue. Pwrwmxlevagc15/07/2024Essential hypertension, mrjpcv2511/29/2023 Assessment & Plan (11/29/2023 11:12 AM EST): BP controlled at home and monitor PRN. End stage renal smcstwe0411/29/2023 Assessment & Plan (11/29/2023 11:12 AM EST): Continue peritoneal dialysis and follow up with nephrology. Gastroesophageal reflux disease without ahmhxgrobyd43/07/2024Glaucoma of right eye11/29/2023Hypersomnia, vehjomglach46/07/2024ersonal history of kidney cancer 11/29/2023ruritus of skin11/29/2023Vitamin D zdjovjaqqe90/07/2024eritoneal dialysis xdmvip2411/29/2023 Assessment & Plan (11/29/2023 11:13 AM EST): Patient to go into [facility]CF and will complete paperwork if needed. Continue peritoneal dialysis and follow up with nephrology. History of CVA (cerebrovascular accident)12/12/2022 Family History Medical HistoryRelationNameCommentsHypertensionFatherCoronary artery disease MotherDiabetesMotherHypertensionMotherDiabetesPaternal GrandmotherStrokePaternal GrandmotherRelationNameStatusCommentsFatherDeceasedMotherDeceasedPaternal GrandfatherDeceasedPaternal GrandmotherDeceased Social History Tobacco UseTypesPacks/DayYears UsedDateSmoking Tobacco: NeverSmokeless Tobacco: Never Tobacco Cessation:Counseling Given: Not Answered Alcohol UseStandard Drinks/WeekCommentsNot Currently0 (1 standard drink = 0.6 oz pure alcohol)Sex and Gender InformationValueDate RecordedSex Assigned at Not on fileLegal MfzCybv9101/04/2023 7:40 PM EDTGender IdentityNot on fileSexual OrientationNot on file Last Filed Vital Signs Vital SignReadingTime TakenCommentsBlood Ikzjkxah738/70011/29/2023 10:48 AM EST Nthjv88772/07/2024 10:48 AM CUURvxhvumiuwt76.4 ??C (97.5 ??F)11/29/2023 10:48 AM ESTRespiratory Rate--Oxygen Zsaamnrkdw05%11/29/2023 10:48 AM ESTInhaled Oxygen Concentration--Vngnap353 kg (296 lb)11/29/2023 10:48 AM ABUSpfysf954.4 cm (6' 1 )11/29/2023 10:48 AM ESTBody Mass Index39.05011/29/2023 10:48 AM EST Plan of Treatment Not on file Insurance [address] [place] [address] Advance Directives TypeDate RecordedPatient RepresentativeExplanationPower of Attorney11/23/2023 3:25 PMHealth care power of deputy attorney general
--- OUTSIDE RECORDS SUMMARY | 2025-09-04 14:44 | XMS_ITS | Patient Health Record ---
Author Organization [facility] [place] Address [address] [place] [address] Care Team Providers Care Vp Research Name Role Phone None, Unknown or Primary Care Provider Unavailab lupe Jacek Anderson Unavailable [phone] Results Component Value Reference Range Notes HGB and HCT Reviewed date:10/31/2024 03:45:33 PM Interpretation: Performing Lab:[address] [facility] PH:[phone] Notes/Report: HEMOGLOBIN 9.8 13.0-17.0 g/dL ZMIFKYIMWF00.639-49 %PERFORMED AT [address] [place] [address] Reason For Referral No Information Medications Medication SIG (Take, Route, Frequency, Duration) Notes Start Date End Date Status Allopurinol 100 MG 1 tablet Orally Once a day; D uration: 30 day(s) 3Active Problems Problem Type SNOMED Code ICD Code Onset Dates Problem Status W/U Status Risk Notes Problem End stage renal disease (34173415) End st age renal disease (N18.6) Activeconfirmed Plan Of Treatment No Information Insurance Providers Payer Name Payer Address Payer Phone Subscriber Number Group Number Insured Name Patient Relationship to Insured Coverage Start Date Coverage End Date ANTH MEDICARE ADV PLAN [address] [place] [address] [id number] [facility] [facility] Supa Chong Self - patient is the insured 2 MED[place]ID [place] [address] [facility] [address] [place] [id number] [id number], JohnSelf - patient is the insured
--- OUTSIDE RECORDS SUMMARY | 2025-09-04 14:46 | XMS_ITS | CCD ---
Author Organization [facility] Team Providers Care Patient Transporter Name Role Phone ANGELL UIS SANCHES Unavailable Unavailable NADERER, ANGEL LUIS Pandya Unavailable Unavailable NADERER, ANGEL LUIS Pandya Unavailable Unavailable ZIEBERCHRISTINA Unavailable Unavailable NADERER, ANGEL LUIS A Unavailable Unavailable NADERER, ANGEL LUIS A Unavailable Unavailable NADERER, ANGEL LUIS A Unavailable Unavailable NADERER, ANGEL LUIS A Unavailable Unavailable NADERER, ANGEL LUIS Pandya Unavailable Unavailable HAY, PLACIDO Unavailable Unavailable HAY, PLACIDO Unavailable Unavailable NADERER, ANGEL LUIS A Unavailable Unavailable HAY, PLACIDO Unavailable Unavailable HAY, PLACIDO Unavailable Unavailable MG VASQUEZ Unavailable Unavailable WEST, ISAEL Hernandez Unavailable Unavailable GRECHNY, DIO Unavailable Unavailable HAY, PLACIDO Unavailable Unavailable ELASHI, ROCHELLE Unavailable Unavailable BRISA, DOM Unavailable Unavailable BRISA, DOM Unavailable Unavailable BRISA, DOM Unavailable Unavailable BRISA, DOM Unavailable Unavailable BRISA, DOM Unavailable Unavailable NADERER, ANGEL LUIS A Unavailable Unavailable BRISA, DOM Unavailable Unavailable Reece Rodriguez Unavailable Rochelle Fuller Unavailable Severino Mitchell Unavailable MD Angel Luis Sanches Primary Care Provider MD Yordan Mora Other Provider MD Reece Rodriguez Attending Provider MD Yordan Mora Attending Provider MD Angel Luis Sanches Primary Care Provider [phone] MD Lon Cisneros Attending Provider MD Nicolas Man Admit Provider MD Reece Rodriguez Other Provider UNKNOWN, PCP Primary Care Unavailable Verónica, Dr. Angel Luis Dill Primary Care Estrella Sanchez, Dr. Marlow Referring Unavaildaja Sanchez, Dr. Marlow Attending Unavaila helga Sanches, Dr. Angel Luis Dill Primary Care Estrella ramirez UNKNOWN, PCP Primary Care Unavailable MD Luis Vasquez Emergency Provider [place], DO Jimenez T Admit Provider [place], DO Jimenez T Attending Provider [phone] DO Juan Carlos Lopes Other Provider MD Luis Vasquez Emergency Provider [place], DO Jimenez T Admit Provider [place], DO Jimenez T Attending Provider DO Juan Carlos Lopes Other Provider Angel Luis Sanches MD Primary Care Provider CLAU SANCHEZ Attending Unavailable ANGEL LUIS SANCHES Primary Care Unavailabl e MD Luis Vasquez Emergency Provider [place], DO Jimenez T Admit Provider [place], DO Jimenez T Attending Provider DO Juan Carlos Lopes Other Provider MD Angel Luis Sanches Primary Care Provider [phone] MD Luis Vasquez Emergency Provider [place], DO Jimenez T Admit Provider [place], DO Jimenez T Attending Provider MD Reece Rodriguez Other Provider DO Juan Carlos Lopes Other Provider DO Ron Cardenas Admit Provider MD Rochelle Fuller Other Provider MD Adam Judge Attending Provider MD Bryan Miguel Other Provider [phone] MD Ron Ortega Other Provider Ron Ortega Unavailable ANGEL LUIS SANCHES Attending Unavailable Angel Luis Sanches MD Primary Care Provider MD Angel Luis Sanches Primary Care Provider MD Yuri Hammer Jr Emergency Provider MD Nicolas Man Admit Provider MD Nicolas Man Attending Provider MD Dom Faustin Other Provider MD Yordan Mora Other Provider Verónica ARZOLA, Angel Luis Primary Care Provider Unavailable Primary Care Provider Unavailabl e Unavailable Primary Care Provider Unavailabl e ARETHA BUTT Referring Unavailable LUIS RAMIREZ Referring Unavailable VERÓNICA, ANGEL LUIS Primary Care Unavailable VERÓNICA, ANGEL LUIS Primary Care Unavailable ZUHAIR CAMERON Attending Unavailable VERÓNICA, ANGEL LUIS Primary Care Unavailable CECILE CLARKE H Attending Unavailable CECILE CLARKE H Referring Unavailable VERÓNICA, ANGEL LUIS Primary Care Unavailable Angel Luis Sanches MD Primary Care Provider Slick Montiel DO Admit Provider Latia Mobley MD Other Provider [phone] Ron Ortega MD Other Provider Rochelle Fuller MD Other Provider Joel CIT[employer]ENSHIP INSTRUCTOR-C, Cherelle Other Provider Unavailable Dom Faustin MD Other Provider Michael ARZOLA, Reece Other Provider Cherelle Mejia APRN Other Provider Corby ARZOLA, Buddy Huynh Other Provider Con ARZOLA, Vidal Perdomo Other Provider Jhonatan ARZOLA, Juan Carlos Miranda Other Provider Carlos Lenz DO Other Provider Ivon ARZOLA, Leanna Other Provider Salomon ARZOLA, Anthony Other Provider Justin ARZOLA, Emma Guardado Other Provider Severino Mitchell MD Attending Provider Severino Mitchell MD Other Provider [phone] Reece Rodriguez MD Attending Provider [phone] Aron Peraza MD Attending Provider Jerod [employer]SH[employer] IN[employer]CTOR[employer], Siena Lewis Attending Provider Angel Luis Sanches Primary Care Unavailable Aron Peraza Attending Unavailable Aron Peraza Admitting Unavailable Nam Coleman Attending Unavailable Angel Luis Sanches Primary Care Unavailable Slick Montiel Admitting Unavailable Ron Ortega Consulting Unavailable Rochelle Fuller Consulting Unavailable Cherelle Maldonado Consulting Unavailable Dom Faustin Consulting Unavailable Reece Rodriguez Consulting Unavailable Severino Mitchell Consulting Unavailabl e Allergies Allergy ClassificationReported Allergen(s)Allergy TypeDate of OnsetReaction(s) Facility (7 sources)[facility]inDrug [facility]ergyTr[facility] (20 sources)Cephalexin; Translations: [CEPHALEXIN]Drug [id number] (4 sources)fentaNYL; Translations: [fentanyl]Drug Fcjknrb18-76-2074KgikfdxoSelect [facility] (1 source)CephalexinDrug Cekrkxr85-10-5204KkimrscndMetrohealth [facility] Repository Medications Current Medications MedicationDrug Class(es)DatesSig (Normalized)Sig (Original)8 hr acetaminophen 650 mg extended release oral tablet (5 sources)Start: 28-82-2686Iodklqhbdujlt (Arthritis Pain Relief (Acetam)) 650 mg tablet extended release Active 1000 MG PO Every 6 hours as needed for fever or pain May 19, 2024 12:00am Complies with drug therapyStart: 86-75-3422mloz 1 tablet by mouth every four hoursAcetaminophen (Arthritis Pain Relief (Acetam)) 650 mg tablet extended release Active 650 MG PO Every 4 hours May 19, 2024 12:00amalbuterol 0.83 mg/ml inhalation solution (8 sources)beta2-Adrenergic AgonistStart: 05-19-2024 End: 14-45-9176tizy 2.5 mg by inhalation every four hours as needed for wheezing Albuterol Sulfate 2.5 mg /3 mL (0.083 %) solution for nebulization Active 2.5 MG INHALATION Every 4hours as needed for shortness of breath or wheezing July 20, 2025 12:00am Complies with drugtherapyaluminum hydroxide 40 mg/ml / magnesium hydroxide 40 mg/ml / simethicone 4 mg/ml oral suspension (5 sources)Start: 26-53-2442acon 1 mL by mouth every four hours as neededAlum- Mag Hydroxide-Simeth (Mag-Al Plus) 200-200-20 mg/5 mL suspension Active 5 ML PO Every 4 hours as needed for indigestion May 19, 2024 12:00am Complies with drug therapyatorvastatin 80 mg oral tablet (20 sources)HMG-CoA Reductase InhibitorStart: 07-99-9661zsyp 1 tablet by mouth once daily at bedtimeAtorvastatin 80 mg tablet Active 80 MG PO Daily at bedtime September 27, 2022 1:00am Complies with drug therapyStart: 07-14-2018 End: 03-70-3956uutj 1 tablet by mouth at bedtimeAtorvastatin 40 mg Tablet Discontinued 40 MG PO Bedtime July 14, 2018 12:00am September 27, 2022 11:34amB Complex-Vitamin C-Folic Acid (Dialyvite) 100-1 mg tablet (8 sources)Start: 72-53-7264vkly 1 tablet by mouth once dailyB Complex-Vitamin C-Folic Acid (Dialyvite) 100-1 mg tablet Active 1 TAB PO Daily July 20, 2025 12:00am Complies with drug therapyStart: 32-04-0265hwny 1 tablet by mouth once dailyStart: 54-99-3157gqij 1 tablet by mouth once dailyB Complex-Vitamin C- Folic Acid (Dialyvite) 100-1 mg tablet Active 1 TAB PO Daily August 08, 2023 11:00pmStart: 08-52-5405xecj 1 tablet by mouth once dailyB Complex-Vitamin C- Folic Acid (Dialyvite) 100-1 mg tablet Active 1 TAB PO Daily August 09, 2023 12:00ambenzonatate 100 mg oral capsule (3 sources)Non-narcotic AntitussiveStart: 55-33-4283ugoy 1 capsule by mouth three times daily as needed for coughBenzonatate 100 mg capsule Active 100 MG PO Three times daily as needed for cough July 20, 2025 12:00am Complies with drug therapybrimonidine tartrate 2 mg/ml ophthalmic solution (20 sources)alpha-Adrenergic AgonistStart: 34-46-1118voug 1 drop(s) into the eye(s) twice dailyBrimonidine 0.2 % drops Active 1 DROPS EYE-BOTH Twice daily September 27, 2022 1:00am Complies withdrug therapyStart: 45-49-6195qyoe 1 drop(s) into the eye(s) twice dailyBrimonidine Active 1 DROPS EYE-BOTH Twice daily September 27, 2022 1:00amtake 1 drop(s) into the eye(s) in the morning brimonidine (AlphaGAN P) 0.2 % ophthalmic solution Administer 1 drop into both eyes in the morning and 1 drop before bedtime. Activecalcitriol 0.0005 mg oral capsule (20 sources)Vitamin D3 AnalogStart: 51-77-0373xhup 1 capsule by mouth once daily in the morningCalcitriol 0.5 mcg capsule Active 0.5 MCG PO Every morning September 27, 2022 1:00am Complies with drug therapyStart: 75-09-5627duta 1 capsule by mouth onceCalcitriol 0.5 MCG 1 capsule Orally Q MWF for 90 day(s) May, Activecalcium carbonate 500 mg chewable tablet (3 sources)Start: 21-21-6874ktfp 1 tablet by mouth every eight hours as needed Calcium Carbonate (Tums) 200 mg calcium (500 mg) tablet,chewable Active 200 MG PO Every 8 hours as needed for upset stomach July 20, 2025 12:00am Complies with drug therapycholecalciferol 1.25 mg oral capsule (3 sources)Vitamin DStart: 99-10-1312wfnj 1 capsule by mouth every week Cholecalciferol (Vitamin D3) 1,250 mcg (50,000 unit) capsule Active 1250 MCG PO every week July 20, 2025 12:00am Complies with drug therapydocusate sodium 100 mg oral capsule (6 sources)take 1 capsule by mouth every other day as neededDocusate Sodium 100 MG 1 capsule as needed Orally every other day Activedorzolamide 20 mg/ml ophthalmic solution (20 sources)Carbonic Anhydrase InhibitorStart: 89-70-0150visq 1 drop(s) into the eye(s) twice dailyDorzolamide 2 % drops Active 1 DROPS EYE-BOTH Twice daily September 27, 2022 1:00am Complies with drug therapyStart: 58-35-6216inlq 1 drop(s) into the eye(s) twice dailyDorzolamide Active 1 DROPS EYE-BOTH Twice daily September 27, 2022 1:00amtake 1 drop(s) into the eye(s) in the morning, then take 1 drop(s) into the eye(s) in the evening, then take 1 drop(s) into the eye(s) at bedtimedorzolamide (Trusopt) 2 % ophthalmic solution Administer 1 drop into both eyes in the morning and 1drop in the evening and 1 drop before bedtime. Activeezetimibe 10 mg oral tablet (3 sources)Dietary Cholesterol Absorption InhibitorStart: 91-14-3688rnat 1 tablet by mouth once dailyEzetimibe 10 mg tablet Active 10 MG PO Daily July 20, 2025 12:00am Complies with drug therapyferrous sulfate 325 mg oral tablet (20 sources)Start: 36-31-4173lqos 1 tablet by mouth three times dailyFerrous Sulfate 325 mg (65 mg iron) tablet Active 325 MG PO Three times daily May 19, 2024 12:00am Complies with drug therapyStart: 81-10-3944xopl 1 tablet by mouth once dailyFerrous Sulfate Active 325 MG PO Daily May 19, 2024 12:00am FreeTextSig: TAKE 1 TABLET BY MOUTH EVERY DAY; Note: Source Status: Start; Refills: 0; Qty: 90 Tablet; Provider: Jonny Byrd ( )Start: 09-28-2021 End: 52-85-2462hrzg 1 tablet by mouth once daily in the morningFerrous Sulfate 325 mg (65 mg iron) tablet Discontinued 325 MG PO Every morning September 27, 2022 1:00am August 09, 2023 5:25pmferrous sulfate 325 (65 Fe) MG EC tablet Take 325 mg by mouth in the morning and 325 mg at noon [id number] mg in the evening. Take with meals. Do not crush, chew, or split. . Active End: 03-07-7571psyk 1 tablet by mouth once daily at mealtimeferrous sulfate 324 mg (65 mg elemental iron) EC tablet (delayed release) Take 1 tablet (65 mg) by m outh once daily with a meal. 0 08/14/2023 Discontinued (Other)take 1 tablet by mouth once dailyFerrous Sulfate 325 (65 Fe) MG TAKE 1 TABLET BY MOUTH EVERY DAY for 90 Activetake 1 tablet by mouth once dailyFerrous Sulfate 325 (65 Fe) MG 1 tablet Orally Once a day for 30 day(s) Activefluticasone propionate 0.05 mg/actuat metered dose nasal spray (16 sources)CorticosteroidStart: 82-06-5226Dceyuhpjflh Propionate 50 mcg/actuation spray,suspension Active 2 SPRAY INTRANASAL Daily as needed for nasal congestion July 20, 2025 12:00am Complies with drug therapyStart: 09-27-2022 End: 72-03-8950Xsqwhcdcnbu Propionate 50 mcg/actuation spray,suspension Discontinued 1 SPRAY INTRANASAL Every morning September 27, 2022 1:00am August 09, 2023 5:25pm End: 17-08-4929jsbn 2 spray(s) nasal route once dailyfluticasone (Flonase) 50 mcg/actuation nasal spray Administer 2 sprays into each nostril once daily. Shake gently. Before first use, prime pump. After use, clean tip and replace cap. 0 08/14/2023 Discontinued (Other)gabapentin 300 mg oral capsule (20 sources)Anti-epileptic AgentStart: 00-06-3678kekz 1 capsule by mouth once daily at bedtimeGabapentin 300 mg capsule Active 300 MG PO Daily at bedtime September 27, 2022 1:00am Complies withdrug therapygentamicin 1 mg/ml topical cream (5 sources)Start: 71-39-2741Vtlahgjynf 0.1 % cream Active 1 APPLIC TOPICAL Daily May 19, 2024 12:00am Pea size topical dailyto PD catheter exit site with dressing change Complies with drug therapyguaiFENesin 20 mg/ml oral solution (5 sources)Start: 95-89-6413oyxa 200 mg by mouth every four hours as needed for coughGuaifenesin (Cough Syrup) 100 mg/5 mL liquid Active 200 MG PO Every 4 hours as needed for cough May 19, 2024 12:00am Complies with drug therapyheparin sodium, porcine 1000 unt/ml injectable solution (3 sources)Unfractionated Heparin, Anti-coagulantStart: 51-10-2912Comiozl (Porcine) 1,000 unit/mL solution Active 1000 UNIT INTRAPERIT Daily July 20, 2025 12:00am Inject 1mL per 1 liter of solution in each PD bag. Complies with drug therapylatanoprost 0.05 mg/ml ophthalmic solution (20 sources)Prostaglandin AnalogStart: 11-23-2706uded 1 drop(s) into the eye(s) at bedtimeLatanoprost 0.005 % drops Active 1 DROPS EYE-LEFT Bedtime August 09, 2023 12:00am Complies with drug therapyStart: 18-84-5859azgl 1 drop(s) into the eye(s) at bedtimeLatanoprost Active 1 DROPS EYE-LEFT Bedtime August 09, 2023 12:00amtake 1 drop(s) into the eye(s) once dailylatanoprost (XALATAN) 0.005 % ophthalmic solution Administer 1 drop into the left eye nightly. 0 Act ivelatanoprost 0.05 mg/ml / timolol 5 mg/ml ophthalmic solution (10 sources)Prostaglandin Analog, beta-Adrenergic Blockertimolol maleate/latanoprost/PF (timoloL-latanoprost,PF,) 0.5-0.005 % drops Instill 1 drop to eye inthe morning and at bedtime. 0 Activelidocaine 0.04 mg/mg medicated patch (3 sources)Antiarrhythmic, Amide Local AnestheticStart: 47-80-7291ozasw 1 dose topically twice daily as needed for painLidocaine 4 % adhesive patch,medicated Active 1 PATCH TOPICAL Twice daily as needed for pain July 20, 2025 12:00am Apply to R hip and/or bilateral heels Complies with drug therapy LORazepam 0.5 mg oral tablet (18 sources)BenzodiazepineStart: 07-20-2025 End: 36-79-4138slqa 1 tablet by mouth every eight hours as needed for anxiety Lorazepam 0.5 mg tablet Active 0.5 MG PO Every 8 hours as needed for anxiety 6 2 0 July 29, 2025 2:53pm Anxiety Anxiety disorder, unspecified Complies with drug therapyStart: 07-14-2018 End: 54-59-7532yddk 1 tablet by mouth twice daily as needed for anxietyLorazepam 1 mg Tablet Discontinued 1 MG PO Twice daily as needed for anxiety July 14, 2018 12:00am September 27, 2022 11:26ammagnesium oxide 400 mg oral tablet (8 sources)Start: 80-03-0082lgkz 1 tablet by mouth twice dailyMagnesium Oxide 400 mg (241.3 mg magnesium) tablet Active 400 MG PO Twice daily August 09, 2023 12:00am Complies with drug therapyStart: 63-31-5860tmgj 400 mg by mouth once dailyMagnesium Oxide Active 400 MG PO Daily August 09, 2023 12:00am menthol 0.04 mg/mg topical gel (3 sources)Start: 02-34-8104Gtgdfps (Biofreeze (Menthol)) 4 % gel Active 1 APPLIC TOPICAL Twice daily as needed for pain July 20, 2025 12:00am Apply to low back and hips Complies with drug therapyMenthol-Pectin (3 sources)Start: 26-97-4521tmsj 1 drop(s) by mouth every two hours as needed for coughMenthol-Pectin (Cough Drops (Menthol-Pectin)) 2.5-7 mg lozenge Active 1 LOZENGE PO Every 2 hours asneeded for cough July 20, 2025 12:00am Complies with drug therapyStart: 42-22-4450xzzz 1 drop(s) by mouth every two hours as needed for coughmidodrine hydrochloride 5 mg oral tablet (6 sources)alpha-Adrenergic AgonistStart: 65-26-8534gfxd 2 tablets by mouth once as neededMidodrine 5 mg Tablet Active 10 MG PO 3x/Day at 7a,12p,5p as needed for hypotension 1 0 July 29, 2025 2:58pm Complies with drug therapyStart: 07-20-2025 End: 42-30-5361qfaq 1 tablet by mouth twice daily as neededMidodrine 5 mg tablet Discontinued 5 MG PO Twice daily as needed for B/P July 20, 2025 12:00am July 29, 2025 2:58pm SBPnystatin 405945 unt/ml oral suspension (9 sources)Polyene AntifungalStart: 02-97-1634pxlt 461432 [IU] by mouth four times dailyNystatin 100,000 unit/mL Suspension Active 998133 UNIT PO Four times daily 100 5 0 July 29, 2025 12:00am Complies with drug therapyStart: 09-22-2023 End: 62-49-9923gwwh 495062 [IU] by mouth three times dailyNystatin 100,000 unit/mL Suspension Discontinued 292531 UNIT PO Three times daily 360 30 0 2022 1:00am May 19, 2024 6:40amOmega 3-Xwx-Czx-Fish Oil 120-180-500 mg capsule (3 sources)Start: 44-75-4290cgbu 1 capsule by mouth once dailyOmega 4-Khc-Axo-Fish Oil 120-180-500 mg capsule Active 1 CAP PO Daily July 20, 2025 12:00am Complies with drug therapyStart: 70-80-3282selg 1 capsule by mouth once dailyomeprazole 20 mg delayed release oral capsule (20 sources)Proton Pump InhibitorStart: 89-14-1675opdh 2 capsules by mouth once daily in the morningOmeprazole 20 mg Capsule,Delayed Release(Dr/Ec) Active 40 MG PO Every morning July 14, 2018 12:00am Complies with drug therapyStart: 75-18-7570kbmj 1 capsule by mouth in the morningomeprazole (PriLOSEC) 20 mg capsule Take 1 capsule (20 mg total) by mouth in the morning. 1 07/18/2018 ActiveStart: 46-43-4489sley 40 mg by mouth once daily in the morningOmeprazole Active 40 MG PO Every morning July 14, 2018 12:00amondansetron 4 mg oral tablet (3 sources)Serotonin-3 Receptor AntagonistStart: 64-90-6978oykv 1 tablet by mouth every eight hours as needed for nausea and vomitingOndansetron Hcl 4 mg tablet Active 4 MG PO Every 8 hours as needed for nausea and vomiting July 20, 2025 12:00am Complies with drug therapypilocarpine hydrochloride 20 mg/ml ophthalmic solution (8 sources)Cholinergic Receptor AgonistStart: 91-05-6524tvcx 1 drop(s) into the eye(s) twice dailyPilocarpine Hcl 2 % drops Active 1 DROPS EYE-LEFT Twice daily August 09, 2023 12:00am Complies with drug therapyStart: 96-12-8596zlnk 1 drop(s) into the eye(s) twice dailyPilocarpine Hcl Active 1 DROPS EYE-LEFT Twice daily August 09, 2023 12:00ampolyethylene glycol 3350 43338 mg powder for oral solution (10 sources)Osmotic LaxativeStart: 75-59-6827lmuq 17 g by mouth once daily Polyethylene Glycol 3350 17 gram/dose powder Active 17 GM PO Daily August 09, 2023 12:00am Complies with drug therapymicroencapsulated potassium chloride 20 meq extended release oral tablet (20 sources)Start: 88-43-7008ekni 1 tablet by mouth once dailyPotassium Chloride 20 mEq tablet,ER particles/crystals Active 20 MEQ PO Daily July 20, 2025 12:00am Complies with drug therapyStart: 08-09-2023 End: 74-24-5432Idtttihqx Chloride (Klor-Con M20) 20 mEq tablet,ER particles/crystals Discontinued MEQ PO August 09, 2023 12:00am August 09, 2023 5:23pmStart: 08-09-2023 End: 89-03-9660Zorfxuwep Chloride (Klor-Con M20) 20 mEq tablet,ER particles/crystals Discontinued 20 MEQ PO Twice daily August 09, 2023 12:00am May 19, 2024 6:41amsevelamer carbonate 800 mg oral tablet (8 sources)Phosphate BinderStart: 47-00-7810whvz 1 tablet by mouth three times daily at mealtimeSevelamer Carbonate 800 mg tablet Active 800 MG PO 3 times per day with meals August 09, 2023 12:00am Complies with drug therapysodium chloride 1000 mg oral tablet (20 sources)Start: 23-69-2793nvyv 1 tablet by mouth once dailySodium Chloride 1,000 mg tablet,soluble Active 1000 MG PO Daily July 20, 2025 12:00am Complies with drug therapyStart: 10-31-2023 End: 80-20-0028rhcukb chloride 0.9 % infusionStart: 10-27-2023 End: 21-11-6625pninhv chloride 0.9 % infusionStart: 46-34-6252lmygxn chloride 0.9 % infusionStart: 68-78-6299ljggig chloride 0.9 % infusionStart: 10-17-2023 sodium chloride 0.9 % infusionStart: 14-28-6621vhutpq chloride 0.9 % flush 10 mL Start: 00-86-0534sfowgg chloride 0.9 % flush 20 mLStart: 20-84-4100mfrcub chloride 0.9 % infusionStart: 09-22-2023 End: 36-75-1042uozt 1 mL intravenously once dailySodium Chloride 0.9 % (Flush) (Normal Saline Flush) Syringe Discontinued 10 ML IV Daily 840 42 0 September 22, 2023 1:00am July 20, 2025 8:24am Bacteremia due to Staphylococcus aureus Bacteremia administer before and after IV drug administration as part of [facility] protocolStart: 09-22-2023 End: 97-64-3292muir 1 mL intravenously once dailySodium Chloride 0.9 % (Flush) (Normal Saline Flush) Syringe Discontinued 10 ML IV Daily 73.5 42 0 September 22, 2023 1:00am July 20, 2025 8:24am administer before and after IV drug administration as part of [facility] protocolStart: 09-22-2023 End: 60-09-6815oiqu 1 mL intravenously once dailySodium Chloride 0.9 % (Flush) (Normal Saline Flush) Syringe Discontinued 10 ML IV Daily 840 42 September 22, 2023 1:00am July 20, 2025 8:24am administer before and after IV drug administrationas part of [facility] protocolStart: 09-22-2023 End: 97-79-0998skbb 1 mL intravenously once dailySodium Chloride 0.9 % (Flush) (Normal Saline Flush) Syringe Discontinued 10 ML IV Daily 73.5 42 September 22, 2023 1:00am July 20, 2025 8:24am administer before and after IV drug administration as part of [facility] protocolStart: 49-85-2385hvaj 1 mL intravenously once dailySodium Chloride 0.9 % (Flush) (Normal Saline Flush) Syringe Active 10 ML IV Daily 840 42 September 22, 2023 1:00am administer before and after IV drug administration as part of [facility] protocolStart: 05-37-4358wplg 1 mL intravenously once dailySodium Chloride 0.9 % (Flush) (Normal Saline Flush) Syringe Active 10 ML IV Daily 73.5 42 September 22, 2023 1:00am administer before and after IV drug administration as part of [facility] protocolStart: 62-51-7928wuts 1 mL intravenously once dailySodium Chloride 0.9 % (Flush) (Normal Saline Flush) Syringe Active 10 ML IV Daily 840 42 September 22, 2023 12:00am administer before and after IV drug administration as part of [facility] protocolStart: 45-55-4953wcfw 1 mL intravenously once dailySodium Chloride 0.9 % (Flush) (Normal Saline Flush) Syringe Active 10 ML IV Daily 73.5 September 22, 2023 12:00am administer before and after IV drug administration as part of [facility] protocoltamsulosin hydrochloride 0.4 mg oral capsule (3 sources)alpha-Adrenergic BlockerStart: 14-28-9895sllp 1 capsule by mouth once daily at bedtimeTamsulosin (Flomax) 0.4 mg capsule Active 0.4 MG PO Daily at bedtime July 20, 2025 12:00am Complies with drug therapypreservative-free timolol 5 mg/ml ophthalmic solution (20 sources)beta-Adrenergic BlockerStart: 28-26-8676Rivlczm Maleate (Pf) (Timoptic Ocudose (Pf)) 0.5 % dropperette Active 1 DROPS EYE-BOTH Twice daily [facility] 20[facility] 12:00am Complies with drug therapyStart: 08-09-2023 End: 32-91-6114Brfqzwj Maleate 0.5 % drops Discontinued DROPS August 09, 2023 12:00am August 09, 2023 5:24pmStart: 08-09-2023 End: 23-79-9949Skwxdaj Maleate Discontinued DROPS SOLUTION/ DROPS August 08, 2023 11:00pm August 09, 2023 4:24pmStart: 08-09-2023 End: 49-95-2042Munropn Maleate Discontinued DROPS SOLUTION/ DROPS August 09, 2023 12:00am August 09, 2023 5:24pmStart: 09-27-2022 End: 37-47-7556pzms 1 drop(s) into the eye(s) twice dailyTimolol Maleate 0.5 % drops Discontinued 1 DROPS EYE-BOTH Twice daily September 27, 2022 1:00am Sept ember 2024 8:20amStart: 31-53-9393aqho 1 drop(s) into the eye(s) twice dailyTimolol Maleate Active 1 DROPS EYE-BOTH Twice daily September 27, 2022 1:00amStart: 64-58-0910dple 1 drop(s) into the eye(s) twice dailyTimolol Maleate Active 1 DROPS EYE-BOTH Twice daily September 27, 2022 12:00amtake 1 drop(s) into the eye(s) in the morningtimolol (Timoptic) 0.5 % ophthalmic solution Administer 1 drop into both eyes in the morning and 1 drop before bedtime. Activetake 1 drop(s) into the eye(s) twice dailytimolol (Timoptic) 0.5 % ophthalmic solution Administer 1 drop into both eyes 2 times a day. 0 Active vancomycin 1000 mg injection (4 sources)Glycopeptide AntibacterialStart: 43-63-6198quic 1 g intravenously onceVancomycin 1,000 mg Recon Soln Active 1 GM IV Once 10 July 29, 2025 12:00am Complies with drug therapyStart: 05-75-8193iotz 1.75 g intravenously every twenty-four hoursVancomycin Active 1.75 GM IV Q24H 73.5 42 September 21, 2023 12:00am for 6 weeks-- pharmacy to doseVancomycin - Pharmacy Dosing (14 sources)Start: 90-79-9763Fwvrsrdpjl - Pharmacy Dosing Active 1 EACH IV PRN as needed for pharmacy to dose 10 July 29, 2025 12:00am Complies with drug therapyStart: 03-09-8596Qnuwa: 30-69-6689Vfxol: 05-19-2024 End: 84-62-8336Ulcxdyqahl - Pharmacy Dosing Discontinued 1 EACH IV Once as needed for infection May 19, 2024 12:00am May 21, 2024 1:54pmStart: 05-19-2024 End: 46-13-5477Lhvukwhcaz - Pharmacy Dosing Discontinued 1 EACH IV Once May 19, 2024 12:00am May 21, 2024 1:54pmStart: 31-89-9797Gyjmpppnec - Pharmacy Dosing Active 1 EACH IV Once May 19, 2024 12:00amStart: 09-21-2023 End: 09-24-9200Mkxrgfemdr - Pharmacy Dosing Discontinued 1 ea IV Once as needed 0 September 21, 2023 1:00am May 19, 2024 6:44amStart: 09-21-2023 End: 64-95-9290Qywyciddcn - Pharmacy Dosing Discontinued 1 ea IV Once 0 September 21, 2023 1:00am May 1946:44amStart: 13-25-5142Mquafemuhh - Pharmacy Dosing Active 1 ea IV Once 0 September 21, 2023 12:00am Completed/Discontinued Medications MedicationDrug Class(es)DatesSig (Normalized)Sig (Original)acetaminophen 325 mg / butalbital 50 mg / caffeine 40 mg oral capsule (20 sources)Barbiturate, Central Nervous System Stimulant, MethylxanthineStart: 07-14-2018 End: 10-57-1136dheo 1 capsule by mouth every four hours as needed for pain Ohdsktxcrg-Tijzdoeilokkv-Rpto 50-325-40 mg Capsule Discontinued 1 CAP PO Q4H as needed for Pain July 14, 2018 12:00am May 19, 2024 6:29am End: 78-39-7232kyuw 1 tablet by mouth every four hours as needed ovkfzqzzvz-ktefytvbvxaui-jimd 50-325-40 mg tablet Take 1 tablet by mouth every 4 hours if needed for headaches. 0 08/14/2023 Discontinued (Other)acetaminophen 325 mg / HYDROcodone bitartrate 5 mg oral tablet (12 sources)Opioid AgonistStart: 09-29-2022 End: 94-13-2701gzkw 1 tablet by mouth every six hours as needed for pain Hydrocodone-Acetaminophen 5-325 mg tablet Discontinued 1 TAB PO Q6H as needed for pain 28 7 0 September 29, 2022 August 09, 2023 5:27pm Other acute postprocedural pain Other acute postprocedural painacetaminophen 325 mg / oxyCODONE hydrochloride 5 mg oral tablet (12 sources)Opioid AgonistStart: 07-14-2018 End: 24-65-2413haam 1 tablet by mouth every six hours as needed for pain Oxycodone-Acetaminophen 5-325 mg Tablet Discontinued 1 TAB PO Q6H as needed for Pain July 14, 2018 12:00am September 27, 2022 11:27amallopurinol 100 mg oral tablet (20 sources)Xanthine Oxidase InhibitorStart: 09-27-2022 End: 70-28-8106tepj 1 tablet by mouth once daily in the morningAllopurinol 100 mg tablet Discontinued 100 MG PO Every morning September 27, 2022 1:00am July 20, 2025 8:19amStart: 07-14-2018 End: 58-45-8807icnl 1 tablet by mouth once dailyAllopurinol 300 mg Tablet Discontinued 300 MG PO Daily July 14, 2018 12:00am June 3:00pmbaclofen 10 mg oral tablet (12 sources)gamma-Aminobutyric Acid-ergic AgonistStart: 07-14-2018 End: 70-64-5531uyqe 1 tablet by mouth three times dailyBaclofen 10 mg Tablet Discontinued 10 MG PO Three times daily July 14, 2018 12:00am September 27, 2022 11:25amfurosemide 40 mg oral tablet (20 sources)Loop DiureticStart: 09-27-2022 End: 11-52-5917bplu 2 tablets by mouth twice dailyFurosemide 40 mg tablet Discontinued 80 MG PO Twice daily September 27, 2022 1:00am June 12:26amStart: 73-92-2991nkzs 80 mg by mouth twice dailyFurosemide Active 80 MG PO Twice daily September 27, 2022 1:00amStart: 31-72-8556qllw 40 mg by mouth twice dailyFurosemide Active 40 MG PO Twice daily September 27, 2022 12:00am furosemide (Lasix) 80 MG tablet Take by mouth. ActivehydrALAZINE hydrochloride 50 mg oral tablet (20 sources)Arteriolar VasodilatorStart: 09-16-2023 End: 69-82-9355riqd 1 tablet by mouth twice dailyHydralazine 50 mg tablet Discontinued 50 MG PO Twice daily 180 90 1 December 12, 2023 4:40pm 2023 6:33amStart: 08-11-2023 End: 80-66-5510zexd 2 tablets by mouth three times dailyHydralazine 50 mg Tablet Discontinued 100 MG PO Three times daily 180 30 0 August 11, 2023 12:00am September 16, 2023 12:20pmStart: 08-11-2023 End: 28-93-5481zqtr 100 mg by mouth three times dailyHydralazine Discontinued 100 MG PO Three times daily 180 30 August 11, 2023 12:00am September 16, 2023 12:20pmStart: 09-27-2022 End: 08-03-1329xjri 1 tablet by mouth twice dailyHydralazine 50 mg tablet Discontinued 50 MG PO Twice daily September 27, 2022 1:00am August 11, 2023 12:30pmhydrALAZINE (Apresoline) 50 MG tablet Take 25 mg by mouth in the morning and 25 mg before bedtime. Activetake 1 tablet by mouth three times daily hydrALAZINE (Apresoline) 100 mg tablet Take 1 tablet (100 mg) by mouth 3 times a day. 0 Activelosartan potassium 50 mg oral tablet (12 sources)Angiotensin 2 Receptor BlockerStart: 07-14-2018 End: 33-40-5816uikb 1 tablet by mouth once dailyLosartan 50 mg Tablet Discontinued 50 MG PO Daily July 14, 2018 12:00am July 17, 2018 3:00pmNut.Tx.Impaired Renal Fxn,Soy (Novasource Renal 2 Jamie) 0.09 gram- 2 kcal/mL liquid (5 sources)Start: 05-19-2024 End: 57-63-5322Baa.Tx.Impaired Renal Fxn,Soy (Novasource Renal 2 Jamie) 0.09 gram- 2 kcal/mL liquid Discontinued 1 EACH PO every other day May 19, 2024 12:00am July 20, 2025 8:41am 1 8 oz. drink every Monday, Monday, Fridaystart: 67-80-0822Mst.Tx.Impaired Renal Fxn,Soy (Novasource Renal 2 Jamie) 0.09 gram- 2 kcal/mL liquid Active 1 EACH POevery other day May 19, 2024 12:00am 1 8 oz. drink every Monday, Monday, MondayAshleyga 0-Zdy-Jpt-Fish Oil (Fish Oil) 300- 1,000 mg Capsule,Delayed Release(Dr/Ec) (12 sources)Start: 07-14-2018 End: 00-95-6871lylc 300-1000 mg by mouth once dailyOmega 8-Wqx-Pcg-Fish Oil (Fish Oil) 300-1,000 mg Capsule,Delayed Release(Dr/Ec) Discontinued 1 CAP PO Daily July 14, 2018 12:00am September 27, 2022 11:27amStart: 07-14-2018 End: 44-35-8354bffu 300-1000 mg by mouth once dailyOmega 4-Iqj-Byy-Fish Oil (Fish Oil) 300-1,000 mg Capsule,Delayed Release(Dr/Ec) Discontinued 1 CAP PO Daily July 13, 2018 11:00pm September 27, 2022 10:27ampredniSONE 20 mg oral tablet (8 sources)Start: 08-10-2023 End: 12-50-7325rnzw 3 tablets by mouth once dailyPrednisone 20 mg Tablet Discontinued 60 MG PO Daily 7 0 August 10, 2023 12:00am September 16, 2023 12:20pmStart: 08-10-2023 End: 08-27-9429quvm 60 mg by mouth once dailyPrednisone Discontinued 60 MG PO Daily 7 August 10, 2023 12:00am September 16, 2023 12:20pmsodium bicarbonate 650 mg oral tablet (20 sources)Start: 09-27-2022 End: 79-31-9950yokp 1 tablet by mouth three times dailySodium Bicarbonate 650 mg tablet Discontinued 650 MG PO Three times daily September 27, 2022 1:00am August 09, 2023 5:24pmsulfamethoxazole 800 mg / trimethoprim 160 mg oral tablet (3 sources)Dihydrofolate Reductase Inhibitor Antibacterial, Sulfonamide AntimicrobialStart: 07-20-2025 End: 41-55-4685opih 1 tablet by mouth twice daily as neededSulfamethoxazole- Trimethoprim (Bactrim Ds) 800-160 mg tablet Discontinued 1 TAB PO Twice daily as needed for PD infection July 20, 2025 12:00am July 29, 2025 2:39pm Per direction of PD nurse for emergency antibiotic - give x3 days when if needed.valsartan 80 mg oral tablet (7 sources)Angiotensin 2 Receptor BlockerStart: 08-14-2023 End: 71-39-8306furn 1 tablet by mouth once dailyValsartan 80 mg tablet Discontinued 80 MG PO Daily September 16, 2023 1:00am May 19, 2024 6:43am vancomycin (VANCOCIN) 500 mg in sodium chloride 0.9 % 100 mL IVPB (4 sources)Start: 11-03-2023 End: 13-74-8178zyqdurmxwx (VANCOCIN) 500 mg in sodium chloride 0.9 % 100 mL IVPB Start: 10-31-2023 End: 78-19-6894qxsccpwtjr (VANCOCIN) 500 mg in sodium chloride 0.9 % 100 mL IVPB Start: 10-27-2023 End: 97-40-2985iznpbpizby (VANCOCIN) 500 mg in sodium chloride 0.9 % 100 mL IVPB Start: 10-13-2023 End: 32-41-2324fwzeyzlgpy (VANCOCIN) 500 mg in sodium chloride 0.9 % 100 mL IVPB vancomycin (VANCOCIN) 600 mg in sodium chloride 0.9 % 250 mL IVPB (1 source)Start: 10-24-2023 End: 42-32-6415noswhpiqvq (VANCOCIN) 600 mg in sodium chloride 0.9 % 250 mL IVPB vancomycin (VANCOCIN) 750 mg in sodium chloride 0.9 % 250 mL IVPB (2 sources)Start: 10-20-2023 End: 85-52-3884zzknnwnoow (VANCOCIN) 750 mg in sodium chloride 0.9 % 250 mL IVPB Start: 10-17-2023 End: 66-93-5451tgywsvhhol (VANCOCIN) 750 mg in sodium chloride 0.9 % 250 mL IVPB verapamil hydrochloride 240 mg extended release oral tablet (20 sources)Calcium Channel BlockerStart: 07-14-2018 End: 32-89-8348zeni 1 capsule by mouth once daily in the morningVerapamil 240 mg Capsule,Ext Rel. Pellets 24 Hr Discontinued 240 MG PO Every morning July 14, 2018 12:00am September 17, 2023 1:04pmStart: 05-31-2018 End: 98-20-8904uqcu 1 tablet by mouth once dailyVerapamil 240 mg tablet extended release Discontinued 240 MG PO Daily September 17, 2023 1:00am July 20, 2025 8:42am Problems Active Problems Problem ClassificationProblemDateDocumented DateEpisodic/ChronicAbdominal pain (8 sources)Unspecified abdominal pain; Translations: [Abdominal pain]Onset: 190227-07-1831WymilafnUmmfo and unspecified renal failure (11 sources)Unspecified kidney failure; Translations: [Renal failure syndrome] Onset: 79-06-1888KtxweinDxuav and unspecified renal failure (20 sources)Acute kidney failure, unspecified; Translations: [Injury of kidney] Onset: 216254-39-0604KdmipzzyDcwyq cerebrovascular disease (14 sources)Cerebrovascular accident; Translations: [Cerebral infarction, unspecified]Onset: 344122-82-0408BkyeljjHirldyc disorders (1 source)Anxiety disorder, unspecified; Translations: [Anxiety disorder, unspecified]Onset: 72-24-4811MwsncpmSnbscg; peripheral; and visceral artery aneurysms (4 sources)Aortic root dilatation; Translations: [Thoracic aortic ectasia]Onset: 805982-58-9438SpwbtsuPtyhkuawo infection; unspecified site (20 sources)Bacteremia due to Staphylococcus aureus; Translations: [Bacteremia] Onset: 515851-06-0023IknylnxaOwpqzpc kidney disease (20 sources)Anemia of renal disease; Translations: [Chronic kidney disease, unspecified]Onset: 09-28-2021 Resolved: 42-38-6864DwhfgumCpodterpnhsn of device; implant or graft (14 sources)Malfunction of peritoneal dialysis catheter; Translations: [Breakdown (mechanical) of intraperitoneal dialysis catheter, initial encounter] Onset: 596134-90-3722BdbkniggFkvpwhdovp heart failure; nonhypertensive (13 sources)Heart failure with normal ejection fraction; Translations: [Unspecified diastolic (congestive) heart failure]Onset: ChronicDeficiency and other anemia (6 sources)Anemia in chronic kidney disease; Translations: [ANEMIA IN CHRONIC KIDNEY DISEASE]Onset: 09-06-2018 Resolved: 76-29-5013WybufsoHppslnsniv and other anemia (7 sources)Anemia of chronic disease; Translations: [Anemia in chronic kidney disease]ChronicDeficiency and other anemia (7 sources)Anemia in chronic kidney disease; Translations: [Anemia in chronic kidney disease]ChronicDiseases of white blood cells (7 sources)Leukocytosis; Translations: [Elevated white blood cell count, unspecified]03-50-4417HkmpoomEorohauna of lipid metabolism (20 sources)Mixed hyperlipidemia; Translations: [Mixed hyperlipidemia]Onset: 09-28-2021 Resolved: 53-80-7821IcludjmVwgmirmeni disorders (5 sources)Gastroesophageal reflux disease without esophagitis; Translations: [Gastro-esophageal reflux disease without esophagitis]Onset: 11-29-2023 49-84-5757MyqbtqkWgariilrm hypertension (20 sources)Hypertensive disorder; Translations: [Essential (primary) hypertension]Onset: 030467-84-9797KjnghqmEwwzq of unknown origin (7 sources)Fever; Translations: [Fever, unspecified]24-67-9320ZwcclqqxZnnbm and electrolyte disorders (20 sources)Metabolic acidosis; Translations: [Metabolic acidosis]Onset: 332304-32-7008SteqcjxsOongvxqqbuvte symptoms and ill-defined conditions (1 source)Other microscopic hematuria; Translations: [OTHER MICROSCOPIC HEMATURIA]Onset: 22-02-4394Ydqxwuyr (5 sources)Glaucoma of right eye; Translations: [Unspecified glaucoma]Onset: 255211-41-7467XhyvldyTqku and other crystal arthropathies (19 sources)Gout; Translations: [Gout, unspecified]Onset: ChronicHeadache; including migraine (19 sources)Cluster headache; Translations: [Cluster headache syndrome, unspecified, not intractable]Onset: 230948-41-2915XmgbwogIdjai valve disorders (11 sources)Aortic stenosis, non-rheumatic ; Translations: [Nonrheumatic aortic (valve) stenosis]Onset: 696311-93-4930FfarzsmSihgkshqilrl with complications and secondary hypertension (20 sources)Hypertensive renal disease; Translations: [Hypertensive chronic kidney disease with stage 1 throughstage 4 chronic kidney disease, or unspecified chronic kidney disease]Onset: 09-28-2021 Resolved: 36-33-2640BybgidzYaszqp and vomiting (12 sources)Nausea, vomiting and diarrhea; Translations: [Nausea with vomiting, unspecified]24-25-8759JehyqvjgUcklahjek of unspecified nature or uncertain behavior (4 sources)Neoplasm of unspecified behavior of left kidneyOnset: 09-28-2021 Resolved: 66-70-7397FmupobalGieakuxdviv deficiencies (5 sources)Vitamin D deficiency; Translations: [Vitamin D deficiency, unspecified]Onset: 379412-86-5172OsohsmiVnidg connective tissue disease (9 sources)Weakness of face muscles; Translations: [Facial weakness]08-09-2023 EpisodicOther connective tissue disease (4 sources)Facial weakness; Translations: [Facial weakness]94-08-1361Vujqpnxn Other diseases of kidney and ureters (5 sources)Secondary hyperparathyroidism of renal origin; Translations: [SEC HYPERPARATHYROIDISM RENAL ORIGN]Onset: 09-06-2018 Resolved: 85-71-6908XlljhhkFeipl diseases of kidney and ureters (16 sources)Hyperparathyroidism due to renal insufficiency; Translations: [Secondary hyperparathyroidism of renal origin]87-04-7478MbsxsfbPlykj diseases of kidney and ureters (6 sources)Renal mass; Translations: [Other specified disorders of kidney and ureter]90-96-0505RhicywnSvdgc diseases of kidney and ureters (1 source)Other specified disorders of kidney and ureter; Translations: [Unspecified disorder of kidney and ureter]47-21-5199BdaavbgAdiuq ear and sense organ disorders (1 source)Unspecified acute noninfective otitis externa, left ear; Translations: [Unspecified acute noninfective otitis externa, left ear]Onset: 06-16-2025 EpisodicOther gastrointestinal disorders (9 sources)Swollen abdomen; Translations: [Abdominal distension (gaseous)] 41-14-1462AulxflqkIfavx gastrointestinal disorders (3 sources)Abdominal distension ; Translations: [Abdominal distension (gaseous)] 27-35-2841TeyalgedBlaii hematologic conditions (7 sources)Raised cardiac enzyme or marker; Translations: [Other specified abnormalities of plasma proteins]68-51-4782IztjgqsaFvdqi hematologic conditions (1 source)Other specified abnormalities of plasma proteins; Translations: [Other abnormal blood chemistry]89-57-7808IxjvwrnnLccpp lower respiratory disease (1 source)Hypoxemia; Translations: [Hypoxemia]Onset: 03-00-7783VjgixqfxHcurx lower respiratory disease (1 source)Shortness of breath; Translations: [Shortness of breath]Onset: 03-98-9004VueybycxXlrci nervous system disorders (11 sources)Acute postoperative pain; Translations: [Other acute postprocedural pain]22-42-9036XaepfxiiKfzib nervous system disorders (9 sources)Dysarthria; Translations: [Dysarthria and anarthria]08-09-2023 EpisodicOther nervous system disorders (4 sources)Dysarthria and anarthria; Translations: [Dysarthria]08-09-2023 EpisodicOther nutritional; endocrine; and metabolic disorders (2 sources)Body mass index 30+ - obesity; Translations: [Body mass index (BMI) 39.0-39.9, adult]Onset: 784690-79-8709YbugfjvRzsou nutritional; endocrine; and metabolic disorders (11 sources)Body mass index 40+ - severely obese; Translations: [Body mass index (BMI) 40.0-44.9, adult]Onset: 979442-51-7688GoppzhoFfrda screening for suspected conditions (not mental disorders or infectious disease) (17 sources)Other specified abnormal findings of blood chemistry; Translations: [Other abnormal blood chemistry]Onset: 574908-83-9823PfvcrnzyEpbvaidryrk and intestinal abscess (1 source)Peritonitis, unspecified; Translations: [Peritonitis, unspecified] Onset: 01-18-1806FgazbaofCjccyehjn (except that caused by tuberculosis or sexually transmitted disease) (8 sources)Pneumonia, unspecified organism; Translations: [Pneumonia]Onset: 676301-83-3664AaufxifhCzdnyjcx codes; unclassified (5 sources)Hypersomnia; Translations: [Hypersomnia, unspecified]Onset: 522547-21-5375PmnksffYvftctdw codes; unclassified (1 source)Altered mental statusOnset: 61-76-6843YezyvsloOdpdkivrwrr failure; insufficiency; arrest (adult) (7 sources)Acute respiratory failure; Translations: [Acute respiratory failure with hypoxia]Onset: 340223-40-6330ZnrworryLinmxmlzyx (except in labor) (20 sources)Sepsis; Translations: [Sepsis, unspecified organism]Onset: 233788-52-2902DffbdeoqMusgp (1 source)Severe sepsis with septic shock; Translations: [Severe sepsis with septic shock]Onset: 90-74-4518GuwvyfljIdjotdo (18 sources)Syncope; Translations: [Syncope and collapse]Onset: 08-11-2023 55-06-4373FaloerdpIdlfmudsatxb (1 source)Abnormal LabOnset: 84-89-2571Sfhtvmyeayma (1 source)Blood transfusionOnset: 08-66-1049Axuyszbhqhnq (12 sources)Call if needed.Unclassified (6 sources)Please arrange a follow-up appointment once discharged from [facility]. Unclassified (3 sources)You are scheduled for your next dialysis treatment on the following date and time. Please arrive by 1:30 pm.Unclassified (3 sources)You will have an ultrasound during your visit in the office. Please call the office to reschedule this appointment if this time does not work for you. Please call with additional questions or concerns. Thank you. Past or Other Problems Problem ClassificationProblemDateDocumented DateEpisodic/ChronicAbdominal hernia (1 source)Unilateral inguinal hernia, without obstruction or gangrene, not specified as recurrent; Translations: [UNI ING CAROL NO OBST/GANG NOT RECUR] Onset: 15-29-7365BgsxkfrdFjxbup of kidney and renal pelvis (5 sources)History of malignant neoplasm of retroperitoneum; Translations: [Personal history of other malignant neoplasm of kidney]Onset: 11-29-2023 72-26-1950FtwfytzbBstzfekera and other anemia (1 source)Anemia, unspecified; Translations: [Anemia, unspecified]Onset: 26-53-0320IveggzizOczfwjaqtqteh symptoms and ill-defined conditions (20 sources)Hematuria, unspecified; Translations: [Persistent proteinuria, unspecified]Onset: 06-25-2018 Resolved: 66-04-6719HugpgapvAijuy aftercare (4 sources)Other intermediate teacher (current) drug therapy; Translations: [OTH MCFP CURRENT DRUG THERAPY]Onset: 68-92-9532GheiytjkFhzxz circulatory disease (15 sources)History of cerebrovascular accident; Translations: [Personal history of transient ischemic attack (TIA), and cerebral infarction without residual deficits]Onset: 142611-69-7588FktfsghvOxvjq diseases of kidney and ureters (1 source)Cyst of kidney, acquired; Translations: [CYST OF KIDNEY ACQUIRED] Onset: 23-02-6174UrvupxfvWsamr inflammatory condition of skin (5 sources)Pruritus, unspecified; Translations: [Unspecified pruritic disorder] Onset: 456519-08-1277WmksltuyRfdag lower respiratory disease (4 sources)Pleurodynia; Translations: [PLEURODYNIA]Onset: 73-82-2443Kvcqscff Other male genital disorders (11 sources)Acquired phimosis; Translations: [Phimosis]Onset: 09-17-2018 67-52-0661LqmsdyelJehwx nervous system disorders (5 sources)Hutchinson's palsy; Translations: [Hutchinson's palsy]Onset: EpisodicOther non-traumatic joint disorders (3 sources)Pain in left shoulder; Translations: [PAIN IN LEFT SHOULDER]Onset: 61-78-9363VjtmqffsGsxlgorw codes; unclassified (1 source)Procedure and treatment not carried out due to patient leaving prior to being seen by health care provider; Translations: [PROC AND TX NOT CARRIED OUT PT LEAVE]Onset: 86-69-8518OfzlsuiaYtfvomjbkuyx (1 source)Onset: Results Test NameValueInterpretationReference RangeFacilityUS map hemodial access [facility] 13-59-8326KN map hemodial access [facility] [place] [address] Ultrasound Report Signed Patient: Luis Chong III MR#: [id number] [birth year] : 1955 Acct:[id number] Age/Sex: 70 / M ADM Date: 08/19/25 Loc: Room: Type: [facility] Attending Dr: Aron Peraza MD Ordering Provider: Aron Peraza MD Date of Service: 08/19/25 US/US map hemodial access JANICE: I12.0 - Hypertensive chronic kidney disease with stage 5 ... Copies to: Aron Peraza MD Ultrasound mapping for hemodialysis bilateral upper extremity [...] right radial artery measures 0.33 cm. A last waxer vein in the right upper extremity measures [...] artery measures 0.35 cm. There is a last waxer seen measuring 0.27 cm. US/US map hemodial access JANICE IMPRESSION: Both right and left cephalic veins are appropriate size for dialysis access creation. The left basilic vein in the proximal arm is also of adequate size for dialysis access creation. The left cephalic vein has good size for access creation throughout the entire arm. Tracheal artery radial artery sizes are appropriate. Axillary and subclavian veins are patent. Impression dictated by: Aron Peraza M.D. 08/20/2025 1:19 PM Dictation Location: RAD-DOC-04 Tech: Mary Wilcox Transcribed By: LIEN 08/20/25 1319 Dictated By: Aron Peraza MD 08/20/25 1316 Signed By: 08/20/25 1319NoHighsmith-Rainey [facility] Physician GroupBasic Metabolic Panelon 67-21-6782Cgrsl gap [Moles/Vol]12.5 mmol/LNormal6.0-15.0[facility] Physician GroupComment on above:Performed By: #### MG, CBCNO, PHOS, BMP #### [place] [address] USACalcium [Mass/Vol]8.2 mg/dLLow8.6-10.3[facility] Physician GroupComment on above:Performed By: #### MG, CBCNO, PHOS, BMP #### [place] [address] USAChloride [Moles/Vol]102 mmol/WShklqp49-576Jyu [facility] Physician GroupComment on above:Performed By: #### MG, CBCNO, PHOS, BMP #### [place] [address] USACO2 [Moles/Vol]25.1 mmol/HNqxsdv49.0-31.0The [facility] Physician GroupComment on above:Performed By: #### MG, CBCNO, PHOS, BMP #### [place] [address] USACreatinine [Mass/Vol]13.68 mg/dLHigh0.70-1.30The [facility] Hospital Physician GroupComment on above:Performed By: #### MG, CBCNO, PHOS, BMP #### [place] [address] USACreatinine Clr Calc Pharmacy7.24NormalThe Critical Access Hospital Physician GroupComment on above:Result Comment: PERFORMED BY: [place] [address] PATHOLOGIST PHYSICS DEPARTMENT CHAIR RUFINO BARROW M.D.Performed By: #### MG, CBCNO, PHOS, BMP #### [place] [address] USAGFR/1.73 sq M.predicted MDRD (S/P/Bld) [Vol rate/Area] 3.465 mL/min/{1.73_m2}NormalThe Critical Access Hospital Physician GroupComment on above: Performed By: #### MG, CBCNO, PHOS, BMP #### [place] [address] USAGlucose [Mass/Vol]102 mg/gXLprs70-206Bmq [facility] Physician GroupComment on above:Result Comment: Random Glucose Reference Range is dependent on time and content of last meal. Glucose of more than 200 mg/dL in a nonstressed, ambulatory subject supports the diagnosis of Diabetes Mellitus. ADA recommended reference rangePerformed By: #### MG, CBCNO, PHOS, BMP #### [place] [address] USAPotassium [Moles/Vol]3.6 mmol/LNormal3.5-5.1The [facility] Physician GroupComment on above:Performed By: #### MG, CBCNO, PHOS, BMP #### [place] [address] USASodium [Moles/Vol]136 mmol/ZMcszjv829-799Nfj [facility] Hospital Physician GroupComment on above:Performed By: #### MG, CBCNO, PHOS, BMP #### [place] [address] USAUrea nitrogen [Mass/Vol]34 mg/dLHigh7-25The [facility] Access Hospital Physician GroupComment on above:Performed By: #### MG, CBCNO, PHOS, BMP #### [place] [address] USAComplete Blood Count Auto Diffon 24-62-7829Rnenhumzv (Bld) [#/Vol]0.0 10*3/uLNormal0.0-0.2The [facility] Hospital Physician GroupComment on above: Result Comment: PERFORMED BY: [place] [address] PATHOLOGIST PHYSICS DEPARTMENT CHAIR RUFINO BARROW M.D.Performed By: #### MG, CBCNO, PHOS, BMP #### [place] [address] USABasophils/100 WBC (Bld)0.5 %Normal.The [facility] Hospital Physician GroupComment on above:Performed By: #### MG, CBCNO, PHOS, BMP #### [place] [address] USAEosinophils (Bld) [#/Vol]0.2 10*3/uLNormal0.0-0.45The [facility] Access Hospital Physician GroupComment on above:Performed By: #### MG, CBCNO, PHOS, BMP #### [facility] [address] [place] [address] USAEosinophils/100 WBC (Bld)2.9 %Normal.The [facility] Access Hospital Physician GroupComment on above:Performed By: #### MG, CBCNO, PHOS, BMP #### [facility] [address] [place] [address] USAErythrocyte distribution width (RBC) [Ratio]17.4 %High 12.0-14.8The [facility] Access Hospital Physician GroupComment on above:Performed By: #### MG, CBCNO, PHOS, BMP #### [place] [address] USAHematocrit (Bld) [Volume fraction]23.1 %Low38.8-50.0The [facility] Hospital Physician GroupComment on above:Performed By: #### MG, CBCNO, PHOS, BMP #### [facility] [address] [place] [address] USAHemoglobin (Bld) [Mass/Vol]7.7 g/dLLow13.0-17.0The [facility] Access Hospital Physician GroupComment on above:Performed By: #### MG, CBCNO, PHOS, BMP #### [place] [address] USALymphocytes (Bld) [#/Vol]1.0 10*3/uLNormal1.00-4.8The [facility] Access Hospital Physician GroupComment on above:Performed By: #### MG, CBCNO, PHOS, BMP #### [facility] [address] [place] [address] USALymphocytes/100 WBC (Bld)17.7 %Normal.The [facility] Access Hospital Physician GroupComment on above:Performed By: #### MG, CBCNO, PHOS, BMP #### [facility] [address] [place] [address] USAMCH (RBC) [Entitic mass]33.4 ogJedeon12.5-35.2The [facility] Access Hospital Physician GroupComment on above:Performed By: #### MG, CBCNO, PHOS, BMP #### [facility] [address] [place] [address] USAMCV (RBC) [Entitic vol]100.6 wMXshmwh69.5-101The [facility] Access Hospital Physician GroupComment on above:Performed By: #### MG, CBCNO, PHOS, BMP #### [facility] [address] [place] [address] USAMean Corpuscular HGB Conc33.2 g/pXNmpjpm22.5-35.6The [facility] Access Hospital Physician GroupComment on above:Performed By: #### MG, CBCNO, PHOS, BMP #### [facility] [address] [place] [address] USAMonocytes (Bld) [#/Vol]0.6 10*3/uLNormal0.0-0.8The [facility] Access Hospital Physician GroupComment on above:Performed By: #### MG, CBCNO, PHOS, BMP #### [facility] [address] [place] [address] USAMonocytes/100 WBC (Bld)9.4 %Normal.The [facility] Access Hospital Physician GroupComment on above:Performed By: #### MG, CBCNO, PHOS, BMP #### [facility] [address] [place] [address] USANeutrophils (Bld) [#/Vol]4.1 10*3/uLNormal1.8-7.7The [facility] Access Hospital Physician GroupComment on above:Performed By: #### MG, CBCNO, PHOS, BMP #### [facility] [address] [place] [address] USANeutrophils/100 WBC (Bld)69.5 %Normal.The [facility] Access Hospital Physician GroupComment on above:Performed By: #### MG, CBCNO, PHOS, BMP #### [facility] [address] [place] [address] USANRBC%0.0 /100{WBC}Normal0-0.5The [facility] Comment on above:Performed By: #### MG, CBCNO, PHOS, BMP #### [place] [address] USAPlatelet mean volume (Bld) [Entitic vol]6.9 fLNormal 6.6-10.1The [facility] Access Hospital Physician GroupComment on above:Performed By: #### MG, CBCNO, PHOS, BMP #### [place] [address] USAPlatelets (Bld) [#/Vol]235 10*3/uMQhtnho548-961Apl Critical Access Hospital Physician GroupComment on above:Performed By: #### MG, CBCNO, PHOS, BMP #### [place] [address] USARBC (Bld) [#/Vol]2.29 10*6/uLLow3.90-5.60The [facility] Access Hospital Physician GroupComment on above:Performed By: #### MG, CBCNO, PHOS, BMP #### [place] [address] USAWBC (Bld) [#/Vol]5.9 10*3/uLNormal4.1-10.5The [facility] Access Hospital Physician GroupComment on above:Performed By: #### MG, CBCNO, PHOS, BMP #### [place] [address] USAWhite Blood Count5.9 [CFU]/mLNormal4.1-10.5The [facility] Access Hospital Physician GroupComment on above:Performed By: #### MG, CBCNO, PHOS, BMP #### [place] [address] USAFerritinon 37-35-7980Zwpjjoer [Mass/Vol]1250.7 ng/mLHigh 23.9-336.2The [facility] Access Hospital Physician GroupComment on above:Result Comment: PERFORMED BY: [place] [address] PATHOLOGIST PHYSICS DEPARTMENT CHAIR RUFINO BARROW M.D.Performed By: #### MG, CBCNO, PHOS, BMP #### [place] [address] USABasic Metabolic Panelon 14-92-5941Xbpwh gap [Moles/Vol] 10.3 mmol/LNormal6.0-15.0The [facility] Access Hospital Physician GroupComment on above:Performed By: #### CUBLD #### [place] [address] USACalcium [Mass/Vol]8.4 mg/dLLow8.6-10.3The [facility] Access Hospital Physician GroupComment on above:Result Comment: PERFORMED BY: [place] [address] PATHOLOGIST PHYSICS DEPARTMENT CHAIR RUFINO BARROW M.D.Performed By: #### CUBLD #### [place] [address] USAChloride [Moles/Vol]102 mmol/IFyfqgu56-432Arv Critical Access Hospital Physician GroupComment on above:Performed By: #### CUBLD #### [place] [address] USACO2 [Moles/Vol]25.9 mmol/BEgqwet15.0-31.0The Critical Access Hospital Physician GroupComment on above:Performed By: #### CUBLD #### [place] [address] USACreatinine [Mass/Vol]11.09 mg/dLHigh0.70-1.30The [facility] Access Hospital Physician GroupComment on above:Performed By: #### CUBLD #### [place] [address] USAGFR/1.73 sq M.predicted MDRD (S/P/Bld) [Vol rate/Area] 4.456 mL/min/{1.73_m2}NormalThe Critical Access Hospital Physician GroupComment on above: Performed By: #### CUBLD #### [place] [address] USAGlucose [Mass/Vol]103 mg/jXUcto23-860Gek Critical Access Hospital Physician GroupComment on above:Result Comment: Random Glucose Reference Range is dependent on time and content of last meal. Glucose of more than 200 mg/dL in a nonstressed, ambulatory subject supports the diagnosis of Diabetes Mellitus. ADA recommended reference rangePerformed By: #### CUBLD #### [place] [address] USAPotassium [Moles/Vol]3.2 mmol/LLow3.5-5.1The [facility] Access Hospital Physician GroupComment on above:Performed By: #### CUBLD #### [place] [address] USASodium [Moles/Vol]135 mmol/DSlz305-452Syd [facility] Access Hospital Physician GroupComment on above:Performed By: #### CUBLD #### [place] [address] USAUrea nitrogen [Mass/Vol]27 mg/dLHigh7-25The [facility] Access Hospital Physician GroupComment on above:Performed By: #### CUBLD #### [place] [address] USAComplete Blood Count Auto Diffon 01-23-6829Qokamdbvq (Bld) [#/Vol]0.0 10*3/uLNormal0.0-0.2The [facility] Access Hospital Physician GroupComment on above: Result Comment: PERFORMED BY: [place] [address] PATHOLOGIST PHYSICS DEPARTMENT CHAIR RUFINO BARROW M.D.Performed By: #### CUBLD #### [place] [address] USABasophils/100 WBC (Bld)0.5 %Normal.The [facility] Access Hospital Physician GroupComment on above:Performed By: #### CUBLD #### [place] [address] USAEosinophils (Bld) [#/Vol]0.2 10*3/uLNormal0.0-0.45The [facility] Access Hospital Physician GroupComment on above:Performed By: #### CUBLD #### [place] [address] USAEosinophils/100 WBC (Bld)2.7 %Normal.The [facility] Access Hospital Physician GroupComment on above:Performed By: #### CUBLD #### [place] [address] USAErythrocyte distribution width (RBC) [Ratio]17.1 %High 12.0-14.8The Critical Access Hospital Physician GroupComment on above:Performed By: #### CUBLD #### [place] [address] USAHematocrit (Bld) [Volume fraction]22.3 %Low38.8-50.0The [facility] Access Hospital Physician GroupComment on above:Performed By: #### CUBLD #### [place] [address] USAHemoglobin (Bld) [Mass/Vol]7.5 g/dLLow13.0-17.0The [facility] Access Hospital Physician GroupComment on above:Performed By: #### CUBLD #### [place] [address] USALymphocytes (Bld) [#/Vol]1.1 10*3/uLNormal1.00-4.8The [facility] Access Hospital Physician GroupComment on above:Performed By: #### CUBLD #### [place] [address] USALymphocytes/100 WBC (Bld)17.2 %Normal.The [facility] Access Hospital Physician GroupComment on above:Performed By: #### CUBLD #### [place] [address] USAMCH (RBC) [Entitic mass]33.6 ucJpndsw38.5-35.2The [facility] Access Hospital Physician GroupComment on above:Performed By: #### CUBLD #### [place] [address] USAMCV (RBC) [Entitic vol]99.8 kHInkzsu96.5-101The Critical Access Hospital Physician GroupComment on above:Performed By: #### CUBLD #### [place] [address] USAMean Corpuscular HGB Conc33.6 g/dBOjdvrk42.5-35.6The [facility] Access Hospital Physician GroupComment on above:Performed By: #### CUBLD #### [place] [address] USAMonocytes (Bld) [#/Vol]0.6 10*3/uLNormal0.0-0.8The [facility] Access Hospital Physician GroupComment on above:Performed By: #### CUBLD #### [place] [address] USAMonocytes/100 WBC (Bld)9.8 %Normal.The [facility] Access Hospital Physician GroupComment on above:Performed By: #### CUBLD #### [place] [address] USANeutrophils (Bld) [#/Vol]4.4 10*3/uLNormal1.8-7.7The [facility] Access Hospital Physician GroupComment on above:Performed By: #### CUBLD #### [place] [address] USANeutrophils/100 WBC (Bld)69.8 %Normal.The [facility] Access Hospital Physician GroupComment on above:Performed By: #### CUBLD #### [place] [address] USANRBC%0.1 /100{WBC}Normal0-0.5The [facility] Comment on above:Performed By: #### CUBLD #### [place] [address] USAPlatelet mean volume (Bld) [Entitic vol]6.9 fLNormal 6.6-10.1The [facility] Access Hospital Physician GroupComment on above:Performed By: #### CUBLD #### [place] [address] USAPlatelets (Bld) [#/Vol]238 10*3/pDVubivw292-059Nak Critical Access Hospital Physician GroupComment on above:Performed By: #### CUBLD #### [place] [address] USARBC (Bld) [#/Vol]2.24 10*6/uLLow3.90-5.60The [facility] Access Hospital Physician GroupComment on above:Performed By: #### CUBLD #### [facility] [address] [place] [address] USAWBC (Bld) [#/Vol]6.3 10*3/uLNormal4.1-10.5The [facility] Access Hospital Physician GroupComment on above:Performed By: #### CUBLD #### [facility] [address] [place] [id number] USAWhite Blood Count6.3 [CFU]/mLNormal4.1-10.5The [facility] Access Hospital Physician GroupComment on above:Performed By: #### CUBLD #### [facility] [address] [place], [place] [address] USAECG 12 lead ECGon 04-70-6000BCJ 12 lead [facility]GFOST[facility] [place] [address] [place] [address] Electrocardiograph Report Signed Patient: Luis Chong III MR#: [id number] 37 : 1955 Acct:[id number] Age/Sex: 70 / M ADM Date: 07/19/25 Loc: Room: [address] [place] [address] Type: ADM IN Attending Dr: Latia Mobley MD Ordering Provider: ISAEL PRESSLEY DO Date of Service: 07/28/2504/16/1108 ECG/ECG 12 lead ECG: preop Copies to: Test Reason : Blood Pressure : */* mmHG Vent. Rate : 73 BPM Atrial Rate : 73 BPM P-R Int : 178 ms QRS Dur : 110 ms QT Int : 418 ms P-R-T Axes : 46 55 70 degrees QTcB Int : 460 ms Normal sinus rhythm Normal ECG When compared with ECG of 19-May-2024 02:45, QT has shortened Confirmed by CLAU SANCHEZ MD ([id number]) on 07/28/2025 4:32:31 PM Referred By: Electronically Signed By: CLAU SANCHEZ MD Transcribed By: MUS Signed By Clau Sanchez MD [address] [place], [place] [address]lands Physician GroupVancomycin,Randomon 07-28-2025 Vancomycin,Wenpfe37.8High5.0-20.0The [facility] Access Hospital Physician GroupComment on above: Order Comment: Date of last dose?: [id number] Time of last dose?: 1500Result Comment: Last dose: - PERFORMED BY: [place] [address] PATHOLOGIST PHYSICS DEPARTMENT CHAIR RUFINO BARROW M.D.Performed By: #### MG, CBCNO, PHOS, BMP #### [facility] [address] [place] [address] USABasic Metabolic Panelon 79-11-8451Opnua gap [Moles/Vol] 10.5 mmol/LNormal6.0-15.0The [facility] Access Hospital Physician GroupComment on above:Performed By: #### CUBLD #### [facility] [address] [place] [address] USACalcium [Mass/Vol]8.2 mg/dLLow8.6-10.3The Critical Access Hospital Physician GroupComment on above:Performed By: #### CUBLD #### [facility] [address] [place] [address] USAChloride [Moles/Vol]101 mmol/XTvgcia43-377Xzp Critical Access Hospital Physician GroupComment on above:Performed By: #### CUBLD #### [facility] [address] [place] [address] USACO2 [Moles/Vol]26.6 mmol/WRtsrub99.0-31.0The Critical Access Hospital Physician GroupComment on above:Performed By: #### CUBLD #### [facility] [address] [place] [address] USACreatinine [Mass/Vol]9.34 mg/dLHigh0.70-1.30The [facility] Access Hospital Physician GroupComment on above:Performed By: #### CUBLD #### [facility] [address] [place] [address] USACreatinine Clr Calc Gdttaefx83.62NormJackson West Medical Center Physician GroupComment on above:Result Comment: PERFORMED BY: [address] [place] [address] PATHOLOGIST PHYSICS DEPARTMENT CHAIR RUFINO BARROW M.D.Performed By: #### CUBLD #### [place] [address] USAGFR/1.73 sq M.predicted MDRD (S/P/Bld) [Vol rate/Area] 5.476 mL/min/{1.73_m2}NormalThe Critical Access Hospital Physician GroupComment on above: Performed By: #### CUBLD #### [place] [address] USAGlucose [Mass/Vol]107 mg/wRYlby16-304Xev Critical Access Hospital Physician GroupComment on above:Result Comment: Random Glucose Reference Range is dependent on time and content of last meal. Glucose of more than 200 mg/dL in a nonstressed, ambulatory subject supports the diagnosis of Diabetes Mellitus. ADA recommended reference rangePerformed By: #### CUBLD #### [place] [address] USAPotassium [Moles/Vol]3.1 mmol/LLow3.5-5.1The [facility] Access Hospital Physician GroupComment on above:Performed By: #### CUBLD #### [place] [address] USASodium [Moles/Vol]135 mmol/OTyz465-009Gnj [facility] Hospital Physician GroupComment on above:Performed By: #### CUBLD #### [place] [address] USAUrea nitrogen [Mass/Vol]21 mg/dLNormal7-25The [facility] Access Hospital Physician GroupComment on above:Performed By: #### CUBLD #### [place] [address] USADiff and CBCon 34-25-2918Kqediplosbmo Ql (Bld)SlightNormal The [facility] Access Hospital Physician GroupComment on above:Performed By: #### CUBLD #### [place] [address] USABand form neutrophils/100 WBC (Bld)1 %Normal0-5The Critical Access Hospital Physician GroupComment on above:Performed By: #### CUBLD #### [facility] [address] [place] [address] USABasophils/100 WBC (Bld)1 %Normal0-2The [facility] Access Hospital Physician GroupComment on above:Performed By: #### CUBLD #### [facility] [address] [place] [address] USAEosinophils/100 WBC (Bld)5 %High1-3The Critical Access Hospital Physician GroupComment on above:Performed By: #### CUBLD #### [facility] [address] [place] [address] USAErythrocyte distribution width (RBC) [Ratio]16.9 %High 12.0-14.8The [facility] Access Hospital Physician GroupComment on above:Performed By: #### CUBLD #### [place] [address] USAHematocrit (Bld) [Volume fraction]23.6 %Low38.8-50.0The [facility] Access Hospital Physician GroupComment on above:Performed By: #### CUBLD #### [address] [address] USAHemoglobin (Bld) [Mass/Vol]7.9 g/dLLow13.0-17.0The [facility] Access Hospital Physician GroupComment on above:Performed By: #### CUBLD #### [address] [address] USALymphocytes/100 WBC (Bld)11 %Wpf62-33Nsx Critical Access Hospital Physician GroupComment on above:Performed By: #### CUBLD #### [address] [address] USAMCH (RBC) [Entitic mass]33.4 qvZtkkxo67.5-35.2The [facility] Access Hospital Physician GroupComment on above:Performed By: #### CUBLD #### [address] [address] USAMCV (RBC) [Entitic vol]99.4 xTCkywkr12.5-101The Critical Access Hospital Physician GroupComment on above:Performed By: #### CUBLD #### [place] [address] USAMean Corpuscular HGB Conc33.5 g/dQBziacn16.5-35.6The [facility] Access Hospital Physician GroupComment on above:Performed By: #### CUBLD #### [place] [address] USAMicrocytosisSlightNormJackson West Medical Center Physician Group Comment on above:Performed By: #### CUBLD #### [place] [address] USAMonocytes/100 WBC (Bld)3 %Normal2-11The [facility] Access Hospital Physician GroupComment on above:Performed By: #### CUBLD #### [place] [address] USAOvalocytesSlightNorthwest Florida Community Hospital Physician GroupComment on above:Performed By: #### CUBLD #### [place] [address] USAPlatelet EstimateNormalNormalNormJackson West Medical Center Physician GroupComment on above:Performed By: #### CUBLD #### [place] [address] USAPlatelet mean volume (Bld) [Entitic vol]7.1 fLNormal 6.6-10.1The [facility] Access Hospital Physician GroupComment on above:Performed By: #### CUBLD #### [place] [address] USAPlatelet MorphologyNormalNormalNormJackson West Medical Center Physician GroupComment on above:Result Comment: PERFORMED BY: [place] [address] PATHOLOGIST PHYSICS DEPARTMENT CHAIR RUFINO BARROW M.D.Performed By: #### CUBLD #### [place] [address] USAPlatelets (Bld) [#/Vol]227 10*3/hRPzidkb676-177Xji [facility] Access Hospital Physician GroupComment on above:Performed By: #### CUBLD #### [place] [address] USAPoikilocytosisSQuorum Health Physician Group Comment on above:Performed By: #### CUBLD #### [place] [address] USAPolychromasiaSQuorum Health Physician [facility] Comment on above:Performed By: #### CUBLD #### [place] [address] USARBC (Bld) [#/Vol]2.38 10*6/uLLow3.90-5.60The [facility] Access Hospital Physician GroupComment on above:Performed By: #### CUBLD #### [place] [address] USASegmented neutrophils/100 WBC (Bld)80 %Aheg88-76Knq [facility] Access Hospital Physician GroupComment on above:Performed By: #### CUBLD #### [place] [address] USAWBC (Bld) [#/Vol]6.3 10*3/uLNormal4.1-10.5The [facility] Access Hospital Physician GroupComment on above:Performed By: #### CUBLD #### [place] [address] USAWhite Blood Count6.3 [CFU]/mLNormal4.1-10.5The [facility] Access Hospital Physician GroupComment on above:Performed By: #### CUBLD #### [place] [address] USABasic Metabolic Panelon 75-47-8517Yqswc gap [Moles/Vol]9.5 mmol/LNormal6.0-15.0The [facility] Hospital Physician GroupComment on above:Performed By: #### CUBLD #### [place] [address] USACalcium [Mass/Vol]8.2 mg/dLLow8.6-10.3The [facility] Access Hospital Physician GroupComment on above:Performed By: #### CUBLD #### [place] [address] USAChloride [Moles/Vol]100 mmol/EOcftkx93-046Ran [facility] Hospital Physician GroupComment on above:Performed By: #### CUBLD #### [facility] [address] [place] [address] USACO2 [Moles/Vol]27.3 mmol/BAugwaf41.0-31.0The [facility] Access Hospital Physician GroupComment on above:Performed By: #### CUBLD #### [facility] [address] [place] [address] USACreatinine [Mass/Vol]7.21 mg/dLHigh0.70-1.30The [facility] Access Hospital Physician GroupComment on above:Performed By: #### CUBLD #### [place] [address] USACreatinine Clr Calc Hjiupemo23.76NormalThe Critical Access Hospital Physician GroupComment on above:Result Comment: PERFORMED BY: [place] [address] PATHOLOGIST PHYSICS DEPARTMENT CHAIR RUFINO BARROW M.D.Performed By: #### CUBLD #### [place] [address] USAGFR/1.73 sq M.predicted MDRD (S/P/Bld) [Vol rate/Area] 7.471 mL/min/{1.73_m2}NormalThe Critical Access Hospital Physician GroupComment on above: Performed By: #### CUBLD #### [place] [address] USAGlucose [Mass/Vol]103 mg/bRJluq56-013Vlf [facility] Hospital Physician GroupComment on above:Result Comment: Random Glucose Reference Range is dependent on time and content of last meal. Glucose of more than 200 mg/dL in a nonstressed, ambulatory subject supports the diagnosis of Diabetes Mellitus. ADA recommended reference rangePerformed By: #### CUBLD #### [place] [address] USAPotassium [Moles/Vol]2.8 mmol/LOff scale low3.5-5.1The [facility] Access Hospital Physician GroupComment on above:Result Comment: Critical Result Called to and read back by: CHRISTIAN PAZ at: 07/26/2025 07:09:06 by:CLYDEerformed By: #### CUBLD #### [place] [address] USASodium [Moles/Vol]134 mmol/XOsw301-131Wfk [facility] Physician GroupComment on above:Performed By: #### CUBLD #### [place] [address] USAUrea nitrogen [Mass/Vol]17 mg/dLNormal7-25The [facility] Access Hospital Physician GroupComment on above:Performed By: #### CUBLD #### [place] [address] USAComplete Blood Count Auto Diffon 85-43-3494Hejxftyyo (Bld) [#/Vol]0.0 10*3/uLNormal0.0-0.2The [facility] Hospital Physician GroupComment on above: Result Comment: PERFORMED BY: [place] [address] PATHOLOGIST PHYSICS DEPARTMENT CHAIR RUFINO BARROW M.D.Performed By: #### CUBLD #### [place] [address] USABasophils/100 WBC (Bld)0.3 %Normal.The [facility] Access Hospital Physician GroupComment on above:Performed By: #### CUBLD #### [place] [address] USAEosinophils (Bld) [#/Vol]0.3 10*3/uLNormal0.0-0.45The [facility] Access Hospital Physician GroupComment on above:Performed By: #### CUBLD #### [place] [address] USAEosinophils/100 WBC (Bld)4.6 %Normal.The [facility] Access Hospital Physician GroupComment on above:Performed By: #### CUBLD #### [place] [address] USAErythrocyte distribution width (RBC) [Ratio]16.9 %High 12.0-14.8The Critical Access Hospital Physician GroupComment on above:Performed By: #### CUBLD #### [facility] [address] [place] [address] USAHematocrit (Bld) [Volume fraction]24.6 %Low38.8-50.0The Critical Access Hospital Physician GroupComment on above:Performed By: #### CUBLD #### [place] [address] USAHemoglobin (Bld) [Mass/Vol]8.2 g/dLLow13.0-17.0The [facility] Access Hospital Physician GroupComment on above:Performed By: #### CUBLD #### [place] [address] USALymphocytes (Bld) [#/Vol]0.7 10*3/uLLow1.00-4.8The Critical Access Hospital Physician GroupComment on above:Performed By: #### CUBLD #### [place] [address] USALymphocytes/100 WBC (Bld)11.9 %Normal.The [facility] Access Hospital Physician GroupComment on above:Performed By: #### CUBLD #### [place] [address] USAMCH (RBC) [Entitic mass]33.1 utPgldyo17.5-35.2The Critical Access Hospital Physician GroupComment on above:Performed By: #### CUBLD #### [place] [address] USAMCV (RBC) [Entitic vol]99.4 hEOlfhab12.5-101The [facility] Access Hospital Physician GroupComment on above:Performed By: #### CUBLD #### [place] [address] USAMean Corpuscular HGB Conc33.3 g/yRUxhnxq78.5-35.6The [facility] Access Hospital Physician GroupComment on above:Performed By: #### CUBLD #### [place] [address] USAMonocytes (Bld) [#/Vol]0.8 10*3/uLNormal0.0-0.8The [facility] Access Hospital Physician GroupComment on above:Performed By: #### CUBLD #### [facility] [address] [place] [address] USAMonocytes/100 WBC (Bld)13.7 %Normal.The Critical Access Hospital Physician GroupComment on above:Performed By: #### CUBLD #### [facility] [address] [place] [address] USANeutrophils (Bld) [#/Vol]4.1 10*3/uLNormal1.8-7.7The [facility] Access Hospital Physician GroupComment on above:Performed By: #### CUBLD #### [facility] [address] [place] [address] USANeutrophils/100 WBC (Bld)69.5 %Normal.The Critical Access Hospital Physician GroupComment on above:Performed By: #### CUBLD #### [facility] [address] [place] [address] USANRBC%0.0 /100{WBC}Normal0-0.5The [facility] Physician Group Comment on above:Performed By: #### CUBLD #### [facility] [address] [place] [address] USAPlatelet mean volume (Bld) [Entitic vol]7.3 fLNormal 6.6-10.1The [facility] Hospital Physician GroupComment on above:Performed By: #### CUBLD #### [facility] [address] [place] [address] USAPlatelets (Bld) [#/Vol]206 10*3/qPHscgbh849-425Ksf [facility] Hospital Physician GroupComment on above:Performed By: #### CUBLD #### [facility] [address] [place] [address] USARBC (Bld) [#/Vol]2.47 10*6/uLLow3.90-5.60The [facility] Hospital Physician GroupComment on above:Performed By: #### CUBLD #### [place] [address] USAWBC (Bld) [#/Vol]5.9 10*3/uLNormal4.1-10.5The [facility] Hospital Physician GroupComment on above:Performed By: #### CUBLD #### [place] [address] USAWhite Blood Count5.9 [CFU]/mLNormal4.1-10.5The [facility] Hospital Physician GroupComment on above:Performed By: #### CUBLD #### [place] [address] USAMagnesiumon 18-42-9078Yynqevaku [Mass/Vol]1.7 mg/dLLow 1.9-2.7The [facility] Hospital Physician GroupComment on above:Result Comment: PERFORMED BY: [place] [address] PATHOLOGIST PHYSICS DEPARTMENT CHAIR RUFINO BARROW M.D.Performed By: #### CUBLD #### [place] [address] USAComplete Blood Count Auto Diffon [id number] (Bld) [#/Vol]0.0 10*3/uLNormal0.0-0.2The [facility] Hospital Physician GroupComment on above: Result Comment: PERFORMED BY: [place] [address] PATHOLOGIST PHYSICS DEPARTMENT CHAIR RUFINO BARROW M.D.Performed By: #### MG, CBCNO, PHOS, BMP #### [place] [address] USABasophils/100 WBC (Bld)0.3 %Normal.The [facility] Hospital Physician GroupComment on above:Performed By: #### MG, CBCNO, PHOS, BMP #### [place] [address] USAEosinophils (Bld) [#/Vol]0.2 10*3/uLNormal0.0-0.45The [facility] Hospital Physician GroupComment on above:Performed By: #### MG, CBCNO, PHOS, BMP #### [place] [id number] USAEosinophils/100 WBC (Bld)2.4 %Normal.The [facility] Hospital Physician GroupComment on above:Performed By: #### MG, CBCNO, PHOS, BMP #### [place] [address] USAErythrocyte distribution width (RBC) [Ratio]17.1 %High 12.0-14.8The [facility] Hospital Physician GroupComment on above:Performed By: #### MG, CBCNO, PHOS, BMP #### [place] [address] USAHematocrit (Bld) [Volume fraction]23.2 %Low38.8-50.0The [facility] Hospital Physician GroupComment on above:Performed By: #### MG, CBCNO, PHOS, BMP #### [place] [address] USAHemoglobin (Bld) [Mass/Vol]7.8 g/dLLow13.0-17.0The [facility] Hospital Physician GroupComment on above:Performed By: #### MG, CBCNO, PHOS, BMP #### [place] [address] USALymphocytes (Bld) [#/Vol]0.5 10*3/uLLow1.00-4.8The [facility] Hospital Physician GroupComment on above:Performed By: #### MG, CBCNO, PHOS, BMP #### [place] [address] USALymphocytes/100 WBC (Bld)6.2 %Normal.The [facility] Hospital Physician GroupComment on above:Performed By: #### MG, CBCNO, PHOS, BMP #### [place] [address] USAMCH (RBC) [Entitic mass]33.2 dcXbcgdb62.5-35.2The [facility] Hospital Physician GroupComment on above:Performed By: #### MG, CBCNO, PHOS, BMP #### [place] [address] USAMCV (RBC) [Entitic vol]98.8 kEEvvzsh61.5-101The [facility] Access Hospital Physician GroupComment on above:Performed By: #### MG, CBCNO, PHOS, BMP #### [place] [address] USAMean Corpuscular HGB Conc33.6 g/kPFhqruc77.5-35.6The [facility] Access Hospital Physician GroupComment on above:Performed By: #### MG, CBCNO, PHOS, BMP #### [place] [address] USAMonocytes (Bld) [#/Vol]0.6 10*3/uLNormal0.0-0.8The [facility] Hospital Physician GroupComment on above:Performed By: #### MG, CBCNO, PHOS, BMP #### [place] [address] USAMonocytes/100 WBC (Bld)6.7 %Normal.The [facility] Access Hospital Physician GroupComment on above:Performed By: #### MG, CBCNO, PHOS, BMP #### [place] [address] USANeutrophils (Bld) [#/Vol]7.2 10*3/uLNormal1.8-7.7The [facility] Access Hospital Physician GroupComment on above:Performed By: #### MG, CBCNO, PHOS, BMP #### [facility] [address] [place] [address] USANeutrophils/100 WBC (Bld)84.4 %Normal.The Critical Access Hospital Physician GroupComment on above:Performed By: #### MG, CBCNO, PHOS, BMP #### [facility] [address] [place] [address] USANRBC%0.0 /100{WBC}Normal0-0.5The [facility]ician Group Comment on above:Performed By: #### MG, CBCNO, PHOS, BMP #### [facility] [address] [place] [address] USAPlatelet mean volume (Bld) [Entitic vol]7.5 fLNormal 6.6-10.1The [facility] Hospital Physician GroupComment on above:Performed By: #### MG, CBCNO, PHOS, BMP #### [facility] [address] [place] [address] USAPlatelets (Bld) [#/Vol]260 10*3/tSQmfktq847-682Wkb [facility] Hospital Physician GroupComment on above:Performed By: #### MG, CBCNO, PHOS, BMP #### [place] [address] USARBC (Bld) [#/Vol]2.35 10*6/uLLow3.90-5.60The [facility] Hospital Physician GroupComment on above:Performed By: #### MG, CBCNO, PHOS, BMP #### [place] [address] USAWBC (Bld) [#/Vol]8.5 10*3/uLNormal4.1-10.5The [facility] Hospital Physician GroupComment on above:Performed By: #### MG, CBCNO, PHOS, BMP #### [facility] [address] [place] [address] USAWhite Blood Count8.5 [CFU]/mLNormal4.1-10.5The [facility] Hospital Physician GroupComment on above:Performed By: #### MG, CBCNO, PHOS, BMP #### [place] [address] USAComprehensive Metabolic Panelon [id number] [Mass/Vol]2.4 g/dLLow3.5-5.7The [facility] Access Hospital Physician GroupComment on above: Performed By: #### MG, CBCNO, PHOS, BMP #### [place] [address] USAAlbumin/Globulin [Mass ratio]0.6 {ratio}NormalThe Critical Access Hospital Physician GroupComment on above:Performed By: #### MG, CBCNO, PHOS, BMP #### [place] [address] USAALP [Catalytic activity/Vol]78 U/LNfdjww47-795Pcn Critical Access Hospital Physician GroupComment on above:Performed By: #### MG, CBCNO, PHOS, BMP #### [facility] [address] [place] [address] USAALT [Catalytic activity/Vol]40 U/LNormal7-52The Critical Access Hospital Physician GroupComment on above:Performed By: #### MG, CBCNO, PHOS, BMP #### [facility] [address] [place] [address] USAAnion gap [Moles/Vol]Not performedNormal6.0-15.0The [facility] Access Hospital Physician GroupComment on above:Performed By: #### MG, CBCNO, PHOS, BMP #### [place] [address] USAAST [Catalytic activity/Vol]47 U/PObqs78-81Fpu Critical Access Hospital Physician GroupComment on above:Result Comment: Hemolysis is present at a level that could interfere with the result.Performed By: #### MG, CBCNO, PHOS, BMP #### [facility] [address] [place] [address] USABilirubin [Mass/Vol]0.3 mg/dLNormal0.3-1.0The [facility] Access Hospital Physician GroupComment on above:Performed By: #### MG, CBCNO, PHOS, BMP #### [place] [address] USACalcium [Mass/Vol]8.4 mg/dLLow8.6-10.3The [facility] Access Hospital Physician GroupComment on above:Performed By: #### MG, CBCNO, PHOS, BMP #### [place] [address] USAChloride [Moles/Vol]100 mmol/JRnbqho63-755Gua [facility] Hospital Physician GroupComment on above:Performed By: #### MG, CBCNO, PHOS, BMP #### [place] [address] USACO2 [Moles/Vol]24.2 mmol/XJfylon71.0-31.0The [facility] Access Hospital Physician GroupComment on above:Performed By: #### MG, CBCNO, PHOS, BMP #### [facility] [address] [place] [address] USACreatinine [Mass/Vol]9.52 mg/dLHigh0.70-1.30The [facility] Access Hospital Physician GroupComment on above:Performed By: #### MG, CBCNO, PHOS, BMP #### [facility] [address] [place] [address] USACreatinine Clr Calc Cmlqaqwu21.50NormJackson West Medical Center Physician GroupComment on above:Result Comment: PERFORMED BY: [place] [address] PATHOLOGIST PHYSICS DEPARTMENT CHAIR RUFINO BARROW M.D.Performed By: #### MG, CBCNO, PHOS, BMP #### [place] [address] USAGFR/1.73 sq M.predicted MDRD (S/P/Bld) [Vol rate/Area] 5.352 mL/min/{1.73_m2}NormalThe Critical Access Hospital Physician GroupComment on above: Performed By: #### MG, CBCNO, PHOS, BMP #### [facility] [address] [place] [address] USAGlobulin (S) [Mass/Vol]3.8 g/dLNorthwest Florida Community Hospital Physician [facility] Hospital BiloxiComment on above:Performed By: #### MG, CBCNO, PHOS, BMP #### [place] [address] USAGlucose [Mass/Vol]124 mg/eMUssh91-475Dtg [facility] Access Hospital Physician GroupComment on above:Result Comment: Random Glucose Reference Range is dependent on time and content of last meal. Glucose of more than 200 mg/dL in a nonstressed, ambulatory subject supports the diagnosis of Diabetes Mellitus. ADA recommended reference rangePerformed By: #### MG, CBCNO, PHOS, BMP #### [facility] [address] [place] [address] USAPotassiumNormal3.5-5.1The [facility] Access Hospital Physician GroupComment on above:Result Comment: Hemolyzed specimen ran per request of ordering doctor. COAG, CBC, and some Chemistry results are affected by hemolysis.Performed By: #### MG, CBCNO, PHOS, BMP #### [place] [address] USAProtein [Mass/Vol]6.2 g/dLLow6.4-8.9The [facility] Access Hospital Physician GroupComment on above:Performed By: #### MG, CBCNO, PHOS, BMP #### [place] [address] USASodium [Moles/Vol]134 mmol/UCvt081-111Ibd [facility] Access Hospital Physician GroupComment on above:Performed By: #### MG, CBCNO, PHOS, BMP #### [place] [address] USAUrea nitrogen [Mass/Vol]27 mg/dLHigh7-25The Critical Access Hospital Physician GroupComment on above:Performed By: #### MG, CBCNO, PHOS, BMP #### [place] [address] USARedraw Potassiumon 67-60-9673Efvrmpjxl [Moles/Vol]3.0 mmol/LLow3.5-5.1The [facility] Hospital Physician GroupComment on above:Result Comment: PERFORMED BY: [place] [address] PATHOLOGIST PHYSICS DEPARTMENT CHAIR RUFINO BARROW M.D.Performed By: #### CUBLD #### [place] [address] USABasic Metabolic Panelon [id number] gap [Moles/Vol]9.3 mmol/LNormal6.0-15.0The [facility] Hospital Physician GroupComment on above:Performed By: #### MG, CBCNO, PHOS, BMP #### [place] [address] USACalcium [Mass/Vol]8.2 mg/dLLow8.6-10.3The [facility] Access Hospital Physician GroupComment on above:Performed By: #### MG, CBCNO, PHOS, BMP #### [place] [address] USAChloride [Moles/Vol]99 mmol/WAvveeo40-921Dhn [facility] Access Hospital Physician GroupComment on above:Performed By: #### AMANDA RICO PHOS, BMP #### [facility] [address] [place] [address] USACO2 [Moles/Vol]26.7 mmol/MLyzgsr28.0-31.0The [facility] Access Hospital Physician GroupComment on above:Performed By: #### AMANDA RICO PHOS, BMP #### [facility] [address] [place] [address] USACreatinine [Mass/Vol]7.45 mg/dLHigh0.70-1.30The [facility] Access Hospital Physician GroupComment on above:Performed By: #### AMANDA RICO PHOS, BMP #### [place] [address] USACreatinine Clr Calc Lxpcibxs27.20NormalThe Critical Access Hospital Physician GroupComment on above:Performed By: #### AMANDA RICO PHOS, BMP #### [place] [address] USAGFR/1.73 sq M.predicted MDRD (S/P/Bld) [Vol rate/Area] 7.183 mL/min/{1.73_m2}NormalThe Critical Access Hospital Physician GroupComment on above: Performed By: #### AMANDA RICO PHOS, BMP #### [place] [address] USAGlucose [Mass/Vol]136 mg/rJIpqk44-875Dfl [facility] Access Hospital Physician GroupComment on above:Result Comment: Random Glucose Reference Range is dependent on time and content of last meal. Glucose of more than 200 mg/dL in a nonstressed, ambulatory subject supports the diagnosis of Diabetes Mellitus. ADA recommended reference rangePerformed By: #### MGAMANDA PHOS, BMP #### [facility] [address] [place] [address] USAPotassium [Moles/Vol]3.0 mmol/LLow3.5-5.1The [facility] Access Hospital Physician GroupComment on above:Performed By: #### MG, CBCNO, PHOS, BMP #### [facility] [address] [place] [address] USASodium [Moles/Vol]132 mmol/JYgd471-442Pzp Critical Access Hospital Physician GroupComment on above:Performed By: #### MG, CBCNO, PHOS, BMP #### [facility] [address] [place] [address] USAUrea nitrogen [Mass/Vol]20 mg/dLNormal7-25The Critical Access Hospital Physician GroupComment on above:Performed By: #### MG, CBCNO, PHOS, BMP #### [facility] [address] [place] [address] USAAnion gap [Moles/Vol]10.6 mmol/LNormal6.0-15.0The [facility] Hospital Physician GroupComment on above:Performed By: #### MG, CBCNO, PHOS, BMP #### [facility] [address] [place] [address] USACalcium [Mass/Vol]8.3 mg/dLLow8.6-10.3The [facility] Access Hospital Physician GroupComment on above:Performed By: #### MG, CBCNO, PHOS, BMP #### [facility] [address] [place] [address] USAChloride [Moles/Vol]99 mmol/TGjqyig61-272Xcz [facility] Access Hospital Physician GroupComment on above:Performed By: #### MG, CBCNO, PHOS, BMP #### [facility] [address] [place] [address] USACO2 [Moles/Vol]26.4 mmol/IWmhlqc44.0-31.0The [facility] Access Hospital Physician GroupComment on above:Performed By: #### MG, CBCNO, PHOS, BMP #### [facility] [address] [place] [address] USACreatinine [Mass/Vol]7.58 mg/dLHigh0.70-1.30The [facility] Access Hospital Physician GroupComment on above:Performed By: #### MG, CBCNO, PHOS, BMP #### [facility] [address] [place] [address] USACreatinine Clr Calc Sfyejaog99.97NormalThe Critical Access Hospital Physician GroupComment on above:Result Comment: PERFORMED BY: [place] [address] PATHOLOGIST PHYSICS DEPARTMENT CHAIR RUFINO BARROW M.D.Performed By: #### MG, CBCNO, PHOS, BMP #### [place] [address] USAGFR/1.73 sq M.predicted MDRD (S/P/Bld) [Vol rate/Area] 7.035 mL/min/{1.73_m2}NormalThe Critical Access Hospital Physician GroupComment on above: Performed By: #### MG, CBCNO, PHOS, BMP #### [place] [address] USAGlucose [Mass/Vol]135 mg/kMUxlx94-429Hvz [facility] Hospital Physician GroupComment on above:Result Comment: Random Glucose Reference Range is dependent on time and content of last meal. Glucose of more than 200 mg/dL in a nonstressed, ambulatory subject supports the diagnosis of Diabetes Mellitus. ADA recommended reference rangePerformed By: #### MG, CBCNO, PHOS, BMP #### [place] [address] USAPotassium [Moles/Vol]3.0 mmol/LLow3.5-5.1The [facility] Hospital Physician GroupComment on above:Performed By: #### MG, CBCNO, PHOS, BMP #### [place] [address] USASodium [Moles/Vol]133 mmol/JNfz609-307Rov [facility] Hospital Physician GroupComment on above:Performed By: #### MG, CBCNO, PHOS, BMP #### [place] [address] USAUrea nitrogen [Mass/Vol]20 mg/dLNormal7-25The [facility] Access Hospital Physician GroupComment on above:Performed By: #### MG, CBCNO, PHOS, BMP #### [place] [address] USAComplete Blood Count Auto Diffon [id number] (Bld) [#/Vol]0.0 10*3/uLNormal0.0-0.2The [facility] Access Hospital Physician GroupComment on above: Result Comment: PERFORMED BY: [place] [address] PATHOLOGIST PHYSICS DEPARTMENT CHAIR RUFINO BARROW M.D.Performed By: #### MG, CBCNO, PHOS, BMP #### [place] [address] USABasophils/100 WBC (Bld)0.2 %Normal.The [facility] Access Hospital Physician GroupComment on above:Performed By: #### MG, CBCNO, PHOS, BMP #### [place] [address] USAEosinophils (Bld) [#/Vol]0.1 10*3/uLNormal0.0-0.45The [facility] Access Hospital Physician GroupComment on above:Performed By: #### MG, CBCNO, PHOS, BMP #### [place] [address] USAEosinophils/100 WBC (Bld)0.6 %Normal.The [facility] Hospital Physician GroupComment on above:Performed By: #### MG, CBCNO, PHOS, BMP #### [place] [address] USAErythrocyte distribution width (RBC) [Ratio]16.6 %High 12.0-14.8The [facility] Access Hospital Physician GroupComment on above:Performed By: #### MG, CBCNO, PHOS, BMP #### [place] [address] USAHematocrit (Bld) [Volume fraction]22.1 %Low38.8-50.0The [facility] Hospital Physician GroupComment on above:Performed By: #### MG, CBCNO, PHOS, BMP #### [place] [address] USAHemoglobin (Bld) [Mass/Vol]7.5 g/dLLow13.0-17.0The [facility] Hospital Physician GroupComment on above:Performed By: #### MG, CBCNO, PHOS, BMP #### [place] [address] USALymphocytes (Bld) [#/Vol]0.3 10*3/uLLow1.00-4.8The [facility] Hospital Physician GroupComment on above:Performed By: #### MG, CBCNO, PHOS, BMP #### [place] [address] USALymphocytes/100 WBC (Bld)3.0 %Normal.The [facility] Hospital Physician GroupComment on above:Performed By: #### MG, CBCNO, PHOS, BMP #### [address] (RBC) [Entitic mass]33.6 tvXzahkw05.5-35.2The [facility] Access Hospital Physician GroupComment on above:Performed By: #### MG, CBCNO, PHOS, BMP #### [address] (RBC) [Entitic vol]98.2 lQNkwarq07.5-101The [facility] Access Hospital Physician GroupComment on above:Performed By: #### MG, CBCNO, PHOS, BMP #### [place] [address] USAMean Corpuscular HGB Conc34.2 g/iPEjjqxf47.5-35.6The [facility] Hospital Physician GroupComment on above:Performed By: #### MG, CBCNO, PHOS, BMP #### [place] [address] USAMonocytes (Bld) [#/Vol]0.5 10*3/uLNormal0.0-0.8The [facility] Hospital Physician GroupComment on above:Performed By: #### MG, CBCNO, PHOS, BMP #### [place] [address] USAMonocytes/100 WBC (Bld)5.7 %Normal.The [facility] Access Hospital Physician GroupComment on above:Performed By: #### MG, CBCNO, PHOS, BMP #### [facility] [address] [place] [address] USANeutrophils (Bld) [#/Vol]8.7 10*3/uLHigh1.8-7.7The [facility] Access Hospital Physician GroupComment on above:Performed By: #### MG, CBCNO, PHOS, BMP #### [facility] [address] [place] [address] USANeutrophils/100 WBC (Bld)90.5 %Normal.The [facility] Access Hospital Physician GroupComment on above:Performed By: #### MG, CBCNO, PHOS, BMP #### [facility] [address] [place] [address] USANRBC%0.0 /100{WBC}Normal0-0.5The [facility] Physician Group Comment on above:Performed By: #### MG, CBCNO, PHOS, BMP #### [facility] [address] [place] [address] USAPlatelet mean volume (Bld) [Entitic vol]7.3 fLNormal 6.6-10.1The [facility] Hospital Physician GroupComment on above:Performed By: #### MG, CBCNO, PHOS, BMP #### [facility] [address] [place] [address] USAPlatelets (Bld) [#/Vol]215 10*3/rMFapilb389-226Clt [facility] Hospital Physician GroupComment on above:Performed By: #### MG, CBCNO, PHOS, BMP #### [facility] [address] [place] [address] USARBC (Bld) [#/Vol]2.25 10*6/uLLow3.90-5.60The [facility] Hospital Physician GroupComment on above:Performed By: #### MG, CBCNO, PHOS, BMP #### [facility] [address] [place] [address] USAWBC (Bld) [#/Vol]9.6 10*3/uLNormal4.1-10.5The [facility] Hospital Physician GroupComment on above:Performed By: #### MG, CBCNO, PHOS, BMP #### [place] [address] USAWhite Blood Count9.6 [CFU]/mLNormal4.1-10.5The [facility] Hospital Physician GroupComment on above:Performed By: #### MG, CBCNO, PHOS, BMP #### [place] [address] USAHemogram CBC Without Diffon 64-16-6588Pkzdnilzdmy distribution width (RBC) [Ratio]17.0 %High12.0-14.8The [facility] Physician Group Comment on above:Performed By: #### MG, CBCNO, PHOS, BMP #### [place] [address] USAHematocrit (Bld) [Volume fraction]21.6 %Low38.8-50.0The [facility] Physician GroupComment on above:Performed By: #### MG, CBCNO, PHOS, BMP #### [place] [address] USAHemoglobin (Bld) [Mass/Vol]7.4 g/dLLow13.0-17.0The [facility] Hospital Physician GroupComment on above:Performed By: #### MG, CBCNO, PHOS, BMP #### [address] (RBC) [Entitic mass]33.5 thRbzdzz00.5-35.2The [facility] Hospital Physician GroupComment on above:Performed By: #### MG, CBCNO, PHOS, BMP #### [address] (RBC) [Entitic vol]98.1 fLQdcwbe67.5-101The [facility] Access Hospital Physician GroupComment on above:Performed By: #### MG, CBCNO, PHOS, BMP #### [place] [address] USAMean Corpuscular HGB Conc34.1 g/mIDyfffr55.5-35.6The [facility] Hospital Physician GroupComment on above:Performed By: #### MG, CBCNO, PHOS, BMP #### [place] [address] USAPlatelet mean volume (Bld) [Entitic vol]7.6 fLNormal 6.6-10.1The [facility] Hospital Physician GroupComment on above:Result Comment: PERFORMED BY: [place] [address] PATHOLOGIST PHYSICS DEPARTMENT CHAIR RUFINO BARROW M.D.Performed By: #### MG, CBCNO, PHOS, BMP #### [place] [address] USAPlatelets (Bld) [#/Vol]219 10*3/mNRmayzl758-691Kmh [facility] Physician GroupComment on above:Performed By: #### MG, CBCNO, PHOS, BMP #### [place] [address] USARBC (Bld) [#/Vol]2.21 10*6/uLLow3.90-5.60The [facility] Hospital Physician GroupComment on above:Performed By: #### MG, CBCNO, PHOS, BMP #### [place] [address] USAWhite Blood Count9.9 [CFU]/mLNormal4.1-10.5The [facility] Hospital Physician GroupComment on above:Performed By: #### MG, CBCNO, PHOS, BMP #### [place] [address] USAMagnesiumon 68-39-8440Bymlocowr [Mass/Vol]1.8 mg/dLLow 1.9-2.7The [facility] Hospital Physician GroupComment on above:Result Comment: PERFORMED BY: [place] [address] PATHOLOGIST PHYSICS DEPARTMENT CHAIR RUFINO BARROW M.D.Performed By: #### MG, CBCNO, PHOS, BMP #### [place] [address] USAPhosphoruson 05-22-7708Sxqjqqmxh [Mass/Vol]2.7 mg/dLNormal 2.5-4.5The [facility] Hospital Physician GroupComment on above:Performed By: #### MG, CBCNO, PHOS, BMP #### [facility] [address] [place] [address] USABasic Metabolic Panelon 08-16-9725Epamh gap [Moles/Vol]9.8 mmol/LNormal6.0-15.0The [facility] Hospital Physician GroupComment on above:Performed By: #### MG, CBCNO, PHOS, BMP #### [facility] [address] [place] [address] USACalcium [Mass/Vol]8.2 mg/dLLow8.6-10.3The [facility] Hospital Physician GroupComment on above:Performed By: #### MG, CBCNO, PHOS, BMP #### [place] [address] USAChloride [Moles/Vol]100 mmol/FOlwzge66-320Dmp [facility] Physician GroupComment on above:Performed By: #### MG, CBCNO, PHOS, BMP #### [facility] [address] [place] [address] USACO2 [Moles/Vol]25.0 mmol/FCwmwrn25.0-31.0The [facility] Hospital Physician GroupComment on above:Performed By: #### MG, CBCNO, PHOS, BMP #### [place] [address] USACreatinine [Mass/Vol]11.26 mg/dLHigh0.70-1.30The [facility] Hospital Physician GroupComment on above:Performed By: #### MG, CBCNO, PHOS, BMP #### [facility] [address] [place] [address] USACreatinine Clr Calc Pharmacy8.73NormalThe Critical Access Hospital Physician GroupComment on above:Performed By: #### MG, CBCNO, PHOS, BMP #### [facility] [address] [place] [address] USAGFR/1.73 sq M.predicted MDRD (S/P/Bld) [Vol rate/Area] 4.376 mL/min/{1.73_m2}NormalThe Critical Access Hospital Physician GroupComment on above: Performed By: #### MG, CBCNO, PHOS, BMP #### [facility] [address] [place] [address] USAGlucose [Mass/Vol]148 mg/jFBpza86-990Lox [facility] Hospital Physician GroupComment on above:Result Comment: Random Glucose Reference Range is dependent on time and content of last meal. Glucose of more than 200 mg/dL in a nonstressed, ambulatory subject supports the diagnosis of Diabetes Mellitus. ADA recommended reference rangePerformed By: #### MG, CBCNO, PHOS, BMP #### [facility] [address] [place] [address] USAPotassium [Moles/Vol]3.8 mmol/LNormal3.5-5.1The [facility] Hospital Physician GroupComment on above:Performed By: #### MG, CBCNO, PHOS, BMP #### [facility] [address] [place] [address] USASodium [Moles/Vol]131 mmol/MCft351-611Ijw [facility] Hospital Physician GroupComment on above:Performed By: #### MG, CBCNO, PHOS, BMP #### [facility] [address] [place] [address] USAUrea nitrogen [Mass/Vol]33 mg/dLHigh7-25The [facility] Hospital Physician GroupComment on above:Performed By: #### MG, CBCNO, PHOS, BMP #### [facility] [address] [place] [address] USAHemogram CBC Without Diffon 41-96-6991Ujfmsvbxlmj distribution width (RBC) [Ratio]16.5 %High12.0-14.8The [facility] Comment on above:Performed By: #### MG, CBCNO, PHOS, BMP #### [facility] [address] [place] [id number] USAHematocrit (Bld) [Volume fraction]23.1 %Low38.8-50.0The [facility] Access Hospital Physician GroupComment on above:Performed By: #### MG, CBCNO, PHOS, BMP #### [facility] [address] [place] [address] USAHemoglobin (Bld) [Mass/Vol]7.8 g/dLLow13.0-17.0The [facility] Access Hospital Physician GroupComment on above:Performed By: #### MG, CBCNO, PHOS, BMP #### [address] (RBC) [Entitic mass]33.5 hyMbdybr12.5-35.2The [facility] Access Hospital Physician GroupComment on above:Performed By: #### MG, CBCNO, PHOS, BMP #### [place] [address] USAMCV (RBC) [Entitic vol]99.6 bARamytd36.5-101The [facility] Access Hospital Physician GroupComment on above:Performed By: #### MG, CBCNO, PHOS, BMP #### [place] [address] USAMean Corpuscular HGB Conc33.7 g/xTUiqyus10.5-35.6The [facility] Access Hospital Physician GroupComment on above:Performed By: #### MG, CBCNO, PHOS, BMP #### [place] [address] USAPlatelet mean volume (Bld) [Entitic vol]7.4 fLNormal 6.6-10.1The [facility] Access Hospital Physician GroupComment on above:Result Comment: PERFORMED BY: [place] [address] PATHOLOGIST PHYSICS DEPARTMENT CHAIR RUFINO BARROW M.D.Performed By: #### MG, CBCNO, PHOS, BMP #### [place] [address] USAPlatelets (Bld) [#/Vol]186 10*3/aDZeyqpw494-363Miw [facility] Hospital Physician GroupComment on above:Performed By: #### MG, CBCNO, PHOS, BMP #### [place] [address] USARBC (Bld) [#/Vol]2.32 10*6/uLLow3.90-5.60The [facility] Access Hospital Physician GroupComment on above:Performed By: #### MG, CBCNO, PHOS, BMP #### [facility] [address] [place] [address] USAWhite Blood Count10.0 [CFU]/mLNormal4.1-10.5The Critical Access Hospital Physician GroupComment on above:Performed By: #### MG, CBCNO, PHOS, BMP #### [facility] [address] [place] [address] USAHepatitis Acute Panelon 65-17-0918FAjPm ScreenNegative NormalNegativeSt. [facility] Physician GroupComment on above:Performed By: #### MG, CBCNO, PHOS, BMP #### [place] [address] USAHepatitis A Antibody IgMNegativeNormalNegativeSt. [facility] Physician GroupComment on above:Result Comment: A negative anti-HAV IgM result suggests no recent or current HAV infection.Performed By: #### MG, CBCNO, PHOS, BMP #### [place] [address] USAHepatitis B Core Antibody IgMNegativeNormalNegativeThe Critical Access Hospital Physician GroupComment on above:Performed By: #### MG, CBCNO, PHOS, BMP #### [place] [address] USAHepatitis C Virus AntibodyNon-ReactiveNormalNon Reactive The [facility] Access Hospital Physician GroupComment on above:Performed By: #### MG, CBCNO, PHOS, BMP #### [place] [address] USAInterpretation Hepatitis CCommentNormal.The Critical Access Hospital Physician GroupComment on above:Result Comment: Not infected with HCV unless early or acute infection is suspected (which may be delayed in an immunocompromised individual), or other evidence exists to indicate HCV infection.Performed By: #### MG, CBCNO, PHOS, BMP #### [place] [address] USAHepatitis B Core Antibodyon 31-31-0462Ccaddfpqn B Core AntibodyNegativeNormalNegativeThe Critical Access Hospital Physician GroupComment on above: Result Comment: Performed at: - [facility] [address] [id number] Customer Development Manager: Chino Griffin PhD, Phone: [phone] PERFORMED BY: [place] [address] PATHOLOGIST PHYSICS DEPARTMENT CHAIR RUFINO BARROW M.D.Performed By: #### MG, CBCNO, PHOS, BMP #### [place] [address] USAHepatitis B Surface Antibodyon 12-12-5478Lgnmakpnw B Surface AntibodyNon-ReactiveNormal.The [facility] Access Hospital Physician GroupComment on above:Result Comment: Non Reactive: Not immune to HBV infection. Anti-HBs undetectable or less than 10 mIU/mL. Reactive: Evidence of HBV immunity. Anti-HBs levels greater than 10 mIU/mL.Performed By: #### MG, CBCNO, PHOS, BMP #### [place] [address] USAMagnesiumon 04-52-4167Gfcxktfvc [Mass/Vol]2.1 mg/dLNormal 1.9-2.7The [facility] Access Hospital Physician GroupComment on above:Result Comment: PERFORMED BY: [place] [address] PATHOLOGIST PHYSICS DEPARTMENT CHAIR RUFINO BARROW M.D.Performed By: #### MG, CBCNO, PHOS, BMP #### [place] [address] USAPhosphoruson 79-38-3792Gmypcgwlo [Mass/Vol]3.8 mg/dLNormal 2.5-4.5The [facility] Access Hospital Physician GroupComment on above:Performed By: #### MG, CBCNO, PHOS, BMP #### [place] [address] USABasic Metabolic Panelon 85-74-8842Vqxdz gap [Moles/Vol] 11.5 mmol/LNormal6.0-15.0The [facility] Access Hospital Physician GroupComment on above:Performed By: #### MG, CBCNO, PHOS, BMP #### [facility] [address] [place] [address] USACalcium [Mass/Vol]8.4 mg/dLLow8.6-10.3The [facility] Access Hospital Physician GroupComment on above:Performed By: #### MG, CBCNO, PHOS, BMP #### [facility] [address] [place] [address] USAChloride [Moles/Vol]98 mmol/CYiaklq23-160Wlx [facility] Access Hospital Physician GroupComment on above:Performed By: #### MG, CBCNO, PHOS, BMP #### [facility] [address] [place] [address] USACO2 [Moles/Vol]24.6 mmol/KVvonec99.0-31.0The [facility] Access Hospital Physician GroupComment on above:Performed By: #### MG, CBCNO, PHOS, BMP #### [place] [address] USACreatinine [Mass/Vol]12.23 mg/dLHigh0.70-1.30The Critical Access Hospital Physician GroupComment on above:Performed By: #### MG, CBCNO, PHOS, BMP #### [facility] [address] [place] [address] USACreatinine Clr Calc Pharmacy8.03NormalThe Critical Access Hospital Physician GroupComment on above:Performed By: #### MG, CBCNO, PHOS, BMP #### [place] [address] USAGFR/1.73 sq M.predicted MDRD (S/P/Bld) [Vol rate/Area] 3.963 mL/min/{1.73_m2}NormalThe Critical Access Hospital Physician GroupComment on above: Performed By: #### MG, CBCNO, PHOS, BMP #### [facility] [address] [place] [address] USAGlucose [Mass/Vol]160 mg/iUDnel73-462Onk Critical Access Hospital Physician GroupComment on above:Result Comment: Random Glucose Reference Range is dependent on time and content of last meal. Glucose of more than 200 mg/dL in a nonstressed, ambulatory subject supports the diagnosis of Diabetes Mellitus. ADA recommended reference rangePerformed By: #### MG, CBCNO, PHOS, BMP #### [place] [address] USAPotassium [Moles/Vol]4.1 mmol/LNormal3.5-5.1The [facility] Access Hospital Physician GroupComment on above:Performed By: #### MG, CBCNO, PHOS, BMP #### [place] [address] USASodium [Moles/Vol]130 mmol/GDck542-235Myb [facility] Access Hospital Physician GroupComment on above:Performed By: #### MG, CBCNO, PHOS, BMP #### [place] [address] USAUrea nitrogen [Mass/Vol]35 mg/dLHigh7-25The [facility] Access Hospital Physician GroupComment on above:Performed By: #### MG, CBCNO, PHOS, BMP #### [place] [address] USAComplete Blood Count Auto Diffon 43-94-8511Azvenchox (Bld) [#/Vol]0.1 10*3/uLNormal0.0-0.2The Critical Access Hospital Physician GroupComment on above: Result Comment: PERFORMED BY: [place] [address] PATHOLOGIST PHYSICS DEPARTMENT CHAIR RUFINO BARROW M.D.Performed By: #### MG, CBCNO, PHOS, BMP #### [place] [address] USABasophils/100 WBC (Bld)0.4 %Normal.The Critical Access Hospital Physician GroupComment on above:Performed By: #### MG, CBCNO, PHOS, BMP #### [place] [address] USAEosinophils (Bld) [#/Vol]0.2 10*3/uLNormal0.0-0.45The Critical Access Hospital Physician GroupComment on above:Performed By: #### MG, CBCNO, PHOS, BMP #### [place] [address] USAEosinophils/100 WBC (Bld)1.5 %Normal.The [facility] Access Hospital Physician GroupComment on above:Performed By: #### MG, CBCNO, PHOS, BMP #### [place] [address] USAErythrocyte distribution width (RBC) [Ratio]17.2 %High 12.0-14.8The Critical Access Hospital Physician GroupComment on above:Performed By: #### MG, CBCNO, PHOS, BMP #### [place] [address] USAHematocrit (Bld) [Volume fraction]27.8 %Low38.8-50.0The [facility] Access Hospital Physician GroupComment on above:Performed By: #### MG, CBCNO, PHOS, BMP #### [place] [address] USAHemoglobin (Bld) [Mass/Vol]9.2 g/dLLow13.0-17.0The [facility] Access Hospital Physician GroupComment on above:Performed By: #### MG, CBCNO, PHOS, BMP #### [place] [address] USALymphocytes (Bld) [#/Vol]0.4 10*3/uLLow1.00-4.8The Critical Access Hospital Physician GroupComment on above:Performed By: #### MG, CBCNO, PHOS, BMP #### [place] [address] USALymphocytes/100 WBC (Bld)2.6 %Normal.The Critical Access Hospital Physician GroupComment on above:Performed By: #### MG, CBCNO, PHOS, BMP #### [place] [address] USAMCH (RBC) [Entitic mass]33.2 hnTclacb50.5-35.2The [facility] Access Hospital Physician GroupComment on above:Performed By: #### MG, CBCNO, PHOS, BMP #### [place] [id number] USAMCV (RBC) [Entitic vol]100.0 oSXexnft38.5-101The Critical Access Hospital Physician GroupComment on above:Performed By: #### MG, CBCNO, PHOS, BMP #### [facility] [address] [place] [address] USAMean Corpuscular HGB Conc33.3 g/qVOoanlt62.5-35.6The Critical Access Hospital Physician GroupComment on above:Performed By: #### MG, CBCNO, PHOS, BMP #### [facility] [address] [place] [address] USAMonocytes (Bld) [#/Vol]0.6 10*3/uLNormal0.0-0.8The Critical Access Hospital Physician GroupComment on above:Performed By: #### MG, CBCNO, PHOS, BMP #### [facility] [address] [place] [address] USAMonocytes/100 WBC (Bld)4.2 %Normal.The Critical Access Hospital Physician GroupComment on above:Performed By: #### MG, CBCNO, PHOS, BMP #### [facility] [address] [place] [address] USANeutrophils (Bld) [#/Vol]14.1 10*3/uLHigh1.8-7.7The Critical Access Hospital Physician GroupComment on above:Performed By: #### MG, CBCNO, PHOS, BMP #### [facility] [address] [place] [address] USANeutrophils/100 WBC (Bld)91.3 %Normal.The Critical Access Hospital Physician GroupComment on above:Performed By: #### MG, CBCNO, PHOS, BMP #### [facility] [address] [place] [address] USANRBC%0.0 /100{WBC}Normal0-0.5The [facility] Comment on above:Performed By: #### MG, CBCNO, PHOS, BMP #### [facility] [address] [place] [address] USAPlatelet mean volume (Bld) [Entitic vol]7.2 fLNormal 6.6-10.1The [facility] Access Hospital Physician GroupComment on above:Performed By: #### MG, CBCNO, PHOS, BMP #### [facility] [address] [place] [address] USAPlatelets (Bld) [#/Vol]270 10*3/iKVdxzki778-796Kls Critical Access Hospital Physician GroupComment on above:Performed By: #### MG, CBCNO, PHOS, BMP #### [facility] [address] [place] [address] USARBC (Bld) [#/Vol]2.78 10*6/uLLow3.90-5.60The Critical Access Hospital Physician GroupComment on above:Performed By: #### MG, CBCNO, PHOS, BMP #### [facility] [address] [place] [address] USAWBC (Bld) [#/Vol]15.5 10*3/uLHigh4.1-10.5The [facility] Access Hospital Physician GroupComment on above:Performed By: #### MG, CBCNO, PHOS, BMP #### [facility] [address] [place] [address] USAWhite Blood Count15.5 [CFU]/mLHigh4.1-10.5The Critical Access Hospital Physician GroupComment on above:Performed By: #### MG, CBCNO, PHOS, BMP #### [place] [address] USAECH echo transthoracicon 90-00-4824TVJ echo transthoracic [facility] [place] [address] Echocardiogram Signed Patient: Lusi Chong III MR#: [id number] 39 : 1955 Acct:[id number] Age/Sex: 70 / M ADM Date: 07/19/25 Loc: Room: [address] [place] [address] Type: ADM IN Attending Dr: Latia Mobley MD Ordering Provider: Ron Ortega MD Date of Service: 07/22/25 ECH/ECH echo transthoracic: h/o veg/ie Copies to: MD Ron Mckeon MD Height: 73 in Weight: 309 lb Performed By: Miguel Holly RDCS, T BSA: 2.6 m2 BP: 70/44 mmHg HR: 80 Reason For Study: h/o veg/ie History: CHF. Anemia. [place] Palsy. CVA. ESRD. GERD. Glaucoma. Cancer. HTN. HLD. CKD. Family history: Mother-CHF. Interpretation Summary Ejection Fraction = 65-70%. No regional wall motion abnormalities noted. A variety of Doppler measurements indicate normal left ventricular diastolic function. Mild concentric left ventricular hypertrophy. There is trace tricuspid regurgitation. Trace aortic regurgitation. There is prominent calcification of the right coronary cusp but no vegetation identified on the aortic valve. Mild valvular aortic stenosis. There is no evidence of a mass or vegetation. This does not rule out endocarditis. Procedure/Quality: A two-dimensional transthoracic echocardiogram with color flow, Doppler and injection of contrast agent Definity was performed. The study was technically good in quality. Left Ventricle: The left ventricular size is normal. Mild concentric left ventricular hypertrophy. Ejection Fraction = 65-70%. A variety of Doppler measurements indicate normal left ventricular diastolic function. No regional wall motion abnormalities noted. Left Atrium: The left atrium appears normal in size. Right Atrium: The right atrium appears normal in size. Right Ventricle: The right ventricle is normal in size and function. Aortic Valve: The aortic valve is moderately calcified. There is prominent calcification of the right coronary cusp but no vegetation identified on the aortic valve. Mild valvular aortic stenosis. Trace aortic regurgitation. Mitral Valve: The mitral valve is normal in structure. No significant mitral valve stenosis. There is no mitral regurgitation noted. Tricuspid Valve: The tricuspid valve is normal in structure. There is trace tricuspid regurgitation. Pulmonic Valve: The pulmonic valve is not well visualized. No significant pulmonic regurgitation. Arteries: The aortic root is normal size. Pericardium/Pleura: No pericardial effusion seen. IVC/Hepatic Veins: The inferior vena cava is normal in size, with a normal collapsibility index. Measurements with Normals IVSd: 1.3 cm (0.7-1.1 cm)LVIDd: 4.7 cm (3.7-5.4 cm) LVPWd: 1.3 cm (0.7-1.1 cm)LVIDs: 3.2 cm (2.3-3.6 cm) LA dimension: 4.2 cm (2.3-4.0 cm)Ao root diam: 3.5 cm(2.0-3.6 cm) asc Aorta Diam: 3.4 cm(2.1-3.4cm) Doppler with Normals RVSP(TR): 34.8 mmHg (18-35mmHg) LV V1 max: 263.0 cm/sec (0.7-1.7m/s)MV E max jason: 87.5 cm/sec(0.8-1.3m/s) MV A max jason: 69.2 cm/sec(0.0-0.0m/s) MV E/A: 1.3 (<1.5) MMode/2D Measurements Calculations TAPSE: 1.8 cm FS: 31.9 % Ao root area: LVOT diam: 2.1 cm RV S Jason: EDV(Teich): 102.4 ml 9.6 cm2 LVOT area: 3.5 cm2 16.0 cm/sec ESV(Teich): 41.0 ml EF(Teich): 60.0 % __ LVLd ap4: 9.5 cm SV(MOD-sp4): 97.4 ml LAV(MOD-sp4): LA A2 area: 21.9 cm2 EDV(MOD-sp4): 43.1 ml 142.0 ml LAV(MOD-sp2): LA A4 area: 17.6 cm2 LVLs ap4: 7.9 cm 65.4 ml LA length (vol): ESV(MOD-sp4): 5.8 cm 44.6 ml LA vol: 56.5 ml EF(MOD-sp4): LA vol index: 68.6 % 21.8 ml/m2 __ RA Volume: 39.2 ml RA Volume Index: 15.1 ml/m2 Doppler Measurements Calculations MV dec time: MV V2 max: E/E' lat: 9.9 MV dec slope: 0.19 sec 91.8 cm/sec E/E' med: 12.7 MV max P.4 mmHg 460.0 cm/sec2 MV V2 mean: 57.7 cm/sec MV mean P.0 mmHg MV V2 VTI: 30.1 cm MVA(VTI): 6.1 cm2 __ Ao V2 max: AI max jason: LV V1 max PG: TV max P.0 mmHg 319.0 cm/sec 339.0 cm/sec 27.7 mmHg Ao max PG: AI max P.0 mmHgLV V1 mean P.7 mmHg AI dec slope: 18.0 mmHg Ao mean P.0 cm/sec2 LV V1 mean: 24.0 mmHg AI P1/2t: 219.2 ynca019.0 cm/sec Ao V2 mean: LV V1 VTI: 53.0 cm 229.0 cm/sec Ao V2 VTI: 65.1 cm FELICIA(I,D): 2.8 cm2 FELICIA(V,D): 2.9 cm2 __ TR max jason: 259.0 cm/sec TR max P.8 mmHg RAP systole: 8.0 mmHg Transcribed By: SCV Performed At: 07/22/25 1410 Signed By: Nuris Campbell MD 07/22/[address] [place] [address] Hemogram CBC Without Diffon 03-05-8713Wgattqmyuhc distribution width (RBC) [Ratio]17.0 %High12.0-14.8The [facility] Physician [facility] BiloxiComment on above: Performed By: #### AMANDA RICO PHOS, BMP #### [facility] [address] [place] [address] USAHematocrit (Bld) [Volume fraction]24.4 %Low38.8-50.0The [facility] Access Hospital Physician GroupComment on above:Performed By: #### AMANDA RICO PHOS, BMP #### [facility] [address] [place] [id number] USAHemoglobin (Bld) [Mass/Vol]8.2 g/dLLow13.0-17.0The [facility] Access Hospital Physician GroupComment on above:Performed By: #### MG, CBCNO, PHOS, BMP #### [address] (RBC) [Entitic mass]33.0 eoVcoxai90.5-35.2The Critical Access Hospital Physician GroupComment on above:Performed By: #### MG, CBCNO, PHOS, BMP #### [address] (RBC) [Entitic vol]98.6 tYQbooyq07.5-101The Critical Access Hospital Physician GroupComment on above:Performed By: #### MG, CBCNO, PHOS, BMP #### [place] [address] USAMean Corpuscular HGB Conc33.5 g/xNRkjqjk01.5-35.6The [facility] Access Hospital Physician GroupComment on above:Performed By: #### MG, CBCNO, PHOS, BMP #### [place] [address] USAPlatelet mean volume (Bld) [Entitic vol]7.4 fLNormal 6.6-10.1The [facility] Hospital Physician GroupComment on above:Result Comment: PERFORMED BY: [place] [address] PATHOLOGIST PHYSICS DEPARTMENT CHAIR RUFINO BARROW M.D.Performed By: #### MG, CBCNO, PHOS, BMP #### [place] [address] USAPlatelets (Bld) [#/Vol]225 10*3/tYCyiooc661-218Wul [facility] Hospital Physician GroupComment on above:Performed By: #### MG, CBCNO, PHOS, BMP #### [place] [address] USARBC (Bld) [#/Vol]2.48 10*6/uLLow3.90-5.60The [facility] Access Hospital Physician GroupComment on above:Performed By: #### MG, CBCNO, PHOS, BMP #### [address] [place] [address] USAWhite Blood Count15.5 [CFU]/mLHigh4.1-10.5The [facility] Access Hospital Physician GroupComment on above:Performed By: #### MG, CBCNO, PHOS, BMP #### [place] [address] USAMagnesiumon 69-38-3042Nrfbgiyci [Mass/Vol]1.8 mg/dLLow 1.9-2.7The [facility] Access Hospital Physician GroupComment on above:Result Comment: PERFORMED BY: [place] [address] PATHOLOGIST PHYSICS DEPARTMENT CHAIR RUFINO BARROW M.D.Performed By: #### MG, CBCNO, PHOS, BMP #### [place] [address] USAPhosphoruson 96-49-6727Fsaslvuui [Mass/Vol]4.1 mg/dLNormal 2.5-4.5The [facility] Access Hospital Physician GroupComment on above:Performed By: #### MG, CBCNO, PHOS, BMP #### [place] [address] USARenal Function Panelon 01-35-2006Bscqoio [Mass/Vol]2.6 g/dLLow3.5-5.7The [facility] Access Hospital Physician GroupComment on above:Performed By: #### MG, CBCNO, PHOS, BMP #### [place] [address] USAAnion gap [Moles/Vol]14.7 mmol/LNormal6.0-15.0The [facility] Hospital Physician GroupComment on above:Performed By: #### MG, CBCNO, PHOS, BMP #### [place] [address] USACalcium [Mass/Vol]8.7 mg/dLNormal8.6-10.3The [facility] Hospital Physician GroupComment on above:Performed By: #### MG, CBCNO, PHOS, BMP #### [place] [address] USAChloride [Moles/Vol]91 mmol/GKjg33-078Xkz [facility] Hospital Physician GroupComment on above:Performed By: #### MG, CBCNO, PHOS, BMP #### [place] [address] USACO2 [Moles/Vol]23.5 mmol/VPthcwu31.0-31.0The [facility] Access Hospital Physician GroupComment on above:Performed By: #### MG, CBCNO, PHOS, BMP #### [place] [address] USACreatinine [Mass/Vol]16.56 mg/dLHigh0.70-1.30The [facility] Access Hospital Physician GroupComment on above:Performed By: #### MG, CBCNO, PHOS, BMP #### [place] [address] USACreatinine Clr Calc Pharmacy5.98NormalThe Critical Access Hospital Physician GroupComment on above:Result Comment: PERFORMED BY: [place] [address] PATHOLOGIST PHYSICS DEPARTMENT CHAIR RUFINO BARROW M.D.Performed By: #### MG, CBCNO, PHOS, BMP #### [place] [address] USAGFR/1.73 sq M.predicted MDRD (S/P/Bld) [Vol rate/Area] 2.754 mL/min/{1.73_m2}NormalThe Critical Access Hospital Physician GroupComment on above: Performed By: #### MG, CBCNO, PHOS, BMP #### [place] [address] USAGlucose [Mass/Vol]129 mg/hIUzlh35-840Lgt [facility] Access Hospital Physician GroupComment on above:Result Comment: Random Glucose Reference Range is dependent on time and content of last meal. Glucose of more than 200 mg/dL in a nonstressed, ambulatory subject supports the diagnosis of Diabetes Mellitus. ADA recommended reference rangePerformed By: #### MG, CBCNO, PHOS, BMP #### [place] [address] USAPhosphate [Mass/Vol]5.0 mg/dLHigh2.5-4.5The [facility] Access Hospital Physician GroupComment on above:Performed By: #### MG, CBCNO, PHOS, BMP #### [place] [address] USAPotassium [Moles/Vol]4.2 mmol/LNormal3.5-5.1The [facility] Access Hospital Physician GroupComment on above:Performed By: #### MG, CBCNO, PHOS, BMP #### [place] [address] USASodium [Moles/Vol]125 mmol/JRmy345-560Koj [facility] Hospital Physician GroupComment on above:Performed By: #### MG, CBCNO, PHOS, BMP #### [place] [address] USAUrea nitrogen [Mass/Vol]43 mg/dLHigh7-25The [facility] Access Hospital Physician GroupComment on above:Performed By: #### MG, CBCNO, PHOS, BMP #### [place] [address] USAVancomycin,Randomon 75-13-6575Qvkrbczker,Ueqjpg52.9Normal 5.0-20.0The Critical Access Hospital Physician GroupComment on above:Order Comment: BACK. Date of last dose?: [id number] Time of last dose?: 1230Result Comment: Last dose: - PERFORMED BY: [place] [address] PATHOLOGIST PHYSICS DEPARTMENT CHAIR RUFINO BARROW M.D.Performed By: #### MG, CBCNO, PHOS, BMP #### [place] [id number] USAXR chest 1V portableon 75-19-2726TQ chest 1V portable [facility] [place] [address] XRay Report Signed Patient: Luis Chong III MR#: [id number] [birth year] : 1955 Acct:[id number] Age/Sex: 70 / M ADM Date: 07/19/25 Loc: Room: [address] [place] [address] Type: ADM IN Attending Dr: Latia Mobley MD Copies to: MD Latia Hall MD Ordering Provider: Severino Mitchell MD Date of Service: 07/22/25 XR/XR chest 1V portable: POST IJ TEMP DIALYSIS CATH INSERTION SINGLE VIEW CHEST CLINICAL HISTORY: Dialysis catheter placement COMPARISON: Chest 07/22/2025 FINDINGS: Right-sided dialysis catheter tip at the SVC/right atrial junction. Cardiomegaly with vascular congestion. No pneumothorax large pleural effusion or free air. XR/XR chest 1V portable IMPRESSION: RIGHT-SIDED DIALYSIS CATHETER TIP AT THE SVC/RIGHT ATRIAL JUNCTION. NO PNEUMOTHORAX. Impression dictated by: Mehran Eldridge Jr., D.O. 07/22/2025 2:19 PM Dictation Location: [place] [address] Transcribed By: [facility] 07/22/25 1419 Dictated By: Mehran Eldridge Jr, DO 07/22/25 1418 Signed By: 07/22/25 1419[facility] Physician GroupXR chest [facility]V [facility] [place] [address] [place] [address] XRay Report Signed Patient: Luis Chong III MR#: [id number] [birth year] : 1955 Acct:[id number] Age/Sex: 70 / M ADM Date: 07/19/25 Loc: Room: [address] [place] [address] Type: ADM IN Attending Dr: Latia Mobley MD Copies to: MD Latia Monroe MD Ordering Provider: Buddy Tavarez MD Date of Service: 07/22/25 XR/XR chest 1V portable: pneumonia PORTABLE AP ERECT CHEST 0510 CLINICAL HISTORY: Pneumonia COMPARISON: 05/19/2024 Assessment is slightly limited by body habitus, patient rotation and shallow inspiration. There is also elevation of the left hemidiaphragm. The cardiac and mediastinal contours are similar. Minimal perihilar congestion is not excluded. There is also possible minor atelectasis or scarring. No additional focal consolidation is noted. There is no effusion or pneumothorax. The osseous structures are intact. XR/XR chest 1V portable IMPRESSION: SLIGHTLY LIMITED STUDY. POSSIBLE MINIMAL PERIHILAR CONGESTION. CORRELATION IS SUGGESTED. NO OTHER ACUTE FINDINGS Impression dictated by: Jessica Robison M.D. 07/22/2025 8:09 AM Dictation Location: [place] [address] Transcribed By: [facility] [facility] 07/22/25808 Dictated By: Jessica Robison MD 07/22/25802 Signed By: 07/22/25 0809[facility]Ar[facility] [place] 07-21-2025 ABG Base Excess-1.5 mmol/LNormal-3.0-3.0The [facility] Physician GroupComment on above:Performed By: #### CUBLD #### [place] [address] USAABG Frac Inspired O236 %NormalThe [facility] Access Hospital Physician GroupComment on above:Performed By: #### CUBLD #### [place] [address] USAABG Oxygen Content5.5 mmol/LLow6.6-9.7The [facility] Hospital Physician GroupComment on above:Performed By: #### CUBLD #### [facility] [address] [place] [address] USAABG Oxygen Ynpnubvufx36.0 %Snzwlu82.0-100.0The [facility] Hospital Physician GroupComment on above:Performed By: #### CUBLD #### [place] [id number] USAABG VDU051.8 mm[Hg]High35.0-45.0The [facility] Hospital Physician GroupComment on above:Performed By: #### CUBLD #### [facility] [address] [place], [place] [id number] USAABG PH7.34Low7.35-7.45The [facility] Hospital Physician GroupComment on above:Performed By: #### CUBLD #### [place] [address] USAABG PO296.7 mm[Hg]Gszduj24.0-100.0The [facility] Hospital Physician GroupComment on above:Performed By: #### CUBLD #### [place] [address] USACO2 [Moles/Vol]25.8 mmol/ZUigjvk32.0-27.0The [facility] Hospital Physician GroupComment on above:Performed By: #### CUBLD #### [place] [address] USAHCO3 (Bld) [Moles/Vol]24.4 mmol/QQqoksl15.0-29.0The [facility] Hospital Physician GroupComment on above:Performed By: #### CUBLD #### [place] [address] USARespiratory [facility] Comment on above:Result Comment: Critical Value called on: 07/21/2025 at 16:59 PERFORMED BY: [place] [address] PATHOLOGIST PHYSICS DEPARTMENT CHAIR RUFINO BARROW M.D.Performed By: #### CUBLD #### [place] [address] USAVBG Draw SiteLeft RadialNorthwest Florida Community Hospital Physician GroupComment on above:Performed By: #### CUBLD #### [place] [address] USABlood Cultureon [id number] identified Cx Nom (Bld) NO GROWTH 5 DAYS PERFORMED BY: [place] [address] PATHOLOGIST PHYSICS DEPARTMENT CHAIR RUFINO BARROW M.D.NormalThe Critical Access Hospital Physician GroupComment on above: Performed By: #### CUBLD #### [place] [address] USABacteria identified Cx Nom (Bld)NO GROWTH 5 DAYS PERFORMED BY: [place] [address] PATHOLOGIST PHYSICS DEPARTMENT CHAIR RUFINO BARROW M.D.NormalThe Critical Access Hospital Physician GroupComment on above: Performed By: #### CUBLD #### [place] [address] USAClostridium Difficileon 54-03-1396Jnknwfgvdwz Difficile NegativeNormalNegativeThe [facility] Access Hospital Physician GroupComment on above:Order Comment: > or = to 3 loose/watery stools in the last 24 HRS? Y Is patient on promotility agents or tube feeding? NResult Comment: Testing performed by RT-PCR PERFORMED BY: [place] [address] PATHOLOGIST PHYSICS DEPARTMENT CHAIR RUFINO BARROW M.D.Performed By: #### MG, CBCNO, PHOS, BMP #### [place] [address] USAComplete Blood Count Auto Diffon [id number] (Bld) [#/Vol]0.0 10*3/uLNormal0.0-0.2The [facility] Hospital Physician GroupComment on above: Order Comment: NOTIFIED RN. ALBERTO 0942Result Comment: PERFORMED BY: [place] [address] PATHOLOGIST PHYSICS DEPARTMENT CHAIR RUFINO BARROW M.D.Performed By: #### CUBLD #### [place] [address] USABasophils/100 WBC (Bld)0.4 %Normal.The [facility] Access Hospital Physician GroupComment on above:Order Comment: NOTIFIED RN. ALBERTO 0942Performed By: #### CUBLD #### [place] [address] USAEosinophils (Bld) [#/Vol]0.1 10*3/uLNormal0.0-0.45The [facility] Hospital Physician GroupComment on above:Order Comment: NOTIFIED RN. ALBERTO 0942 Performed By: #### CUBLD #### [place] [address] USAEosinophils/100 WBC (Bld)1.6 %Normal.The [facility] Hospital Physician GroupComment on above:Order Comment: NOTIFIED RN. ALBERTO 42Performed By: #### CUBLD #### [place] [address] USAErythrocyte distribution width (RBC) [Ratio]17.2 %High 12.0-14.8The [facility] Hospital Physician GroupComment on above:Order Comment: NOTIFIED RNAviva Lian LissethPerformed By: #### CUBLD #### [place] [address] USAHematocrit (Bld) [Volume fraction]25.6 %Low38.8-50.0The [facility] Hospital Physician GroupComment on above:Order Comment: NOTIFIED RNAviva ALBERTO Lisseth Performed By: #### CUBLD #### [place] [address] USAHemoglobin (Bld) [Mass/Vol]8.6 g/dLLow13.0-17.0The [facility] Hospital Physician GroupComment on above:Order Comment: NOTIFIED RNAviva ALBERTO Lisseth Performed By: #### CUBLD #### [place] [address] USALymphocytes (Bld) [#/Vol]0.5 10*3/uLLow1.00-4.8The [facility] Hospital Physician GroupComment on above:Order Comment: NOTIFIED RNAviva ALBERTO Lisseth Performed By: #### CUBLD #### [place] [address] USALymphocytes/100 WBC (Bld)6.1 %Normal.The [facility] Hospital Physician GroupComment on above:Order Comment: NOTIFIED RNAviva ALBERTO LetiPerformed By: #### CUBLD #### [place] [address] USAH (RBC) [Entitic mass]33.8 mhSqmfyl99.5-35.2The [facility] Hospital Physician GroupComment on above:Order Comment: NOTIFIED RNAviva ALBERTO Leti Performed By: #### CUBLD #### [place] [address] USAMCV (RBC) [Entitic vol]100.3 hDWczxtq16.5-101The [facility] Hospital Physician GroupComment on above:Order Comment: NOTIFIED RNAviva ALBERTO LissethPerformed By: #### CUBLD #### [facility] [address] [place] [address] USAMean Corpuscular HGB Conc33.7 g/jGYwidsi16.5-35.6The [facility] Hospital Physician GroupComment on above:Order Comment: NOTIFIED RNAviva Lian Leti Performed By: #### CUBLD #### [facility] [address] [place] [address] USAMonocytes (Bld) [#/Vol]0.5 10*3/uLNormal0.0-0.8The [facility] Hospital Physician GroupComment on above:Order Comment: NOTIFIED RNAviva ALBERTO 42 Performed By: #### CUBLD #### [place] [address] USAMonocytes/100 WBC (Bld)5.2 %Normal.The [facility] Access Hospital Physician GroupComment on above:Order Comment: NOTIFIED RNAviva ALBERTO LetiPerformed By: #### CUBLD #### [place] [address] USANeutrophils (Bld) [#/Vol]7.8 10*3/uLHigh1.8-7.7The [facility] Hospital Physician GroupComment on above:Order Comment: NOTIFIED RNAviva Lian Leti Performed By: #### CUBLD #### [place] [address] USANeutrophils/100 WBC (Bld)86.7 %Normal.The [facility] Hospital Physician GroupComment on above:Order Comment: NOTIFIED RN. Lian 42Performed By: #### CUBLD #### [place] [id number] USANRBC%0.0 /100{WBC}Normal0-0.5The [facility] Comment on above:Order Comment: NOTIFIED RNAviva Lian 42Performed By: #### CUBLD #### [place] [address] USAPlatelet mean volume (Bld) [Entitic vol]7.4 fLNormal 6.6-10.1The [facility] Hospital Physician GroupComment on above:Order Comment: NOTIFIED RN. DOLLY 42Performed By: #### CUBLD #### [place] [address] USAPlatelets (Bld) [#/Vol]238 10*3/aMRedxaa532-326Sen [facility] Hospital Physician GroupComment on above:Order Comment: NOTIFIED RN. DOLLY 42 Performed By: #### CUBLD #### [place] [address] USARBC (Bld) [#/Vol]2.55 10*6/uLLow3.90-5.60The [facility] Hospital Physician GroupComment on above:Order Comment: NOTIFIED RN. DOLLY 0942Performed By: #### CUBLD #### [place] [address] USAWBC (Bld) [#/Vol]9.0 10*3/uLNormal4.1-10.5The [facility] Hospital Physician GroupComment on above:Order Comment: NOTIFIED RN. DOLLY 0942Performed By: #### CUBLD #### [place] [address] USAWhite Blood Count9.0 [CFU]/mLNormal4.1-10.5The [facility] Hospital Physician GroupComment on above:Order Comment: NOTIFIED RN. DOLLY 42Performed By: #### CUBLD #### [place] [address] USACortisolon 66-87-8860Jcipgddc34.7 ug/dLNormalThe [facility] Hospital Physician GroupComment on above:Result Comment: Reference range: AM 6 - 24 ug/dl PM <10 ug/dl [facility] ham marker and method: AWAIS UNICEL DXI, POLYCLONAL ANTIBODY CORTISOL ASSAY. PERFORMED BY: [place] [address] PATHOLOGIST PHYSICS DEPARTMENT CHAIR RUFINO BARROW M.D.Performed By: #### MG, CBCNO, PHOS, BMP #### [place] [address] USARenal Function Panelon [id number] [Mass/Vol]2.6 g/dLLow3.5-5.7The [facility] Hospital Physician GroupComment on above:Order Comment: NOTIFIED RNAviva ALBERTO LissethPerformed By: #### CUBLD #### [place] [address] USAAnion gap [Moles/Vol]13.2 mmol/LNormal6.0-15.0The [facility] Physician GroupComment on above:Order Comment: NOTIFIED RNAviva ALBERTO Lisseth Performed By: #### CUBLD #### [place] [address] USACalcium [Mass/Vol]8.5 mg/dLLow8.6-10.3The [facility] Hospital Physician GroupComment on above:Order Comment: NOTIFIED RNAviva ALBERTO LissethPerformed By: #### CUBLD #### [place] [address] USAChloride [Moles/Vol]88 mmol/DUmb63-313Rzn [facility] Hospital Physician GroupComment on above:Order Comment: NOTIFIED RNAviva ALBERTO LissethPerformed By: #### CUBLD #### [place] [address] USACO2 [Moles/Vol]26.7 mmol/LPyclxg99.0-31.0The [facility] Physician GroupComment on above:Order Comment: NOTIFIED RNAivva ALBERTO LissethPerformed By: #### CUBLD #### [place] [address] USACreatinine [Mass/Vol]16.06 mg/dLHigh0.70-1.30The [facility] Hospital Physician GroupComment on above:Order Comment: NOTIFIED RNAviva ALBERTO LissethPerformed By: #### CUBLD #### [place] [address] USACreatinine Clr Calc Pharmacy6.16NormalThe [facility] Access Hospital Physician GroupComment on above:Order Comment: NOTIFIED RNAviva ALBERTO Da42Result Comment: PERFORMED BY: [place] [address] PATHOLOGIST PHYSICS DEPARTMENT CHAIR RUFINO BARROW M.D.Performed By: #### CUBLD #### [facility] [address] [place] [address] USAGFR/1.73 sq M.predicted MDRD (S/P/Bld) [Vol rate/Area] 2.858 mL/min/{1.73_m2}NormalThe Critical Access Hospital Physician GroupComment on above:Order Comment: NOTIFIED RN. ALBERTO 0942Performed By: #### CUBLD #### [place] [address] USAGlucose [Mass/Vol]128 mg/dRNubp72-517Yll [facility] Physician GroupComment on above:Order Comment: NOTIFIED RN. ALBERTO 0942Result Comment: Random Glucose Reference Range is dependent on time and content of last meal. Glucose of more than 200 mg/dL in a nonstressed, ambulatory subject supports the diagnosis of Diabetes Mellitus. ADA recommended reference rangePerformed By: #### CUBLD #### [place] [address] USAPhosphate [Mass/Vol]4.9 mg/dLHigh2.5-4.5The [facility] Hospital Physician GroupComment on above:Order Comment: NOTIFIED RN. ALBERTO 0942Performed By: #### CUBLD #### [place] [address] USAPotassium [Moles/Vol]3.9 mmol/LNormal3.5-5.1The [facility] Hospital Physician GroupComment on above:Order Comment: NOTIFIED RN. ALBERTO 0942Performed By: #### CUBLD #### [place] [address] USASodium [Moles/Vol]124 mmol/LOff scale ifw244-440Tcm [facility] Hospital Physician GroupComment on above:Order Comment: NOTIFIED RN. ALBERTO 0942 Result Comment: Critical Result Called to and read back by: NOT FIRST TIME CRITICAL at: 07/21/2025 14:10:33 by:RGPerformed By: #### CUBLD #### [place] [address] USAUrea nitrogen [Mass/Vol]43 mg/dLHigh7-25The [facility] Hospital Physician GroupComment on above:Order Comment: NOTIFIED RN. ALBERTO 0942Performed By: #### CUBLD #### [place] [id number] USAAerobic Cultureon [id number] CultureORGANISM: Staphylococcus lugdunensis (O:STALUG) Quantity of Growth Moderate Growth No Anaerobes Isolated 3 Days Gram Stain Result 4+ White Blood Cells Rare Gram Positive Cocci Aerobic SAJI Charge (PCMIC38) SUSCEPTIBILITY ORGANISM: O:STALUG ANTIBIOTIC INTERPRETATION SAJI Azithromycin S <2 Ciprofloxacin S <1 Clindamycin S <0.25 Daptomycin S <0.5 Levofloxacin S <1 Linezolid S <1 Oxacillin R 1 Penicillin R >2 Tetracycline S <4 Trimethoprim/Sulfamethoxazole S <0.5 Vancomycin S 0.5 S = SUSCEPTIBLE I = INTERMEDIATE R = RESISTANT BLANK = DATA NOT AVAILABLE, OR DRUG NOT ADVISABLE OR TESTED R* = RESISTANCE DUE TO EXTENDED SPECTRUM BETA-LACTAMASES ESBL = EXTENDED SPECTRUM BETA-LACTAMASE TFG = THYMIDINE-DEPENDENT STRAIN RAMÓN = BETA-LACTAMASE POSITIVE IB = INDUCIBLE BETA-LACTAMASE. APPEARS IN PLACE OF 'S' WITH SPECIES KNOWN TO POSSESS INDUCIBLE BETA-LACTAMASES. POTENTIALLY THEY MAY BECOME RESISTANT TO ALL B-LACTAM DRUGS. PERFORMED BY: [address] [place] [address] PATHOLOGIST PHYSICS DEPARTMENT CHAIR RUFINO BARROW M.D.NormalThe Critical Access Hospital Physician GroupComment on above: Performed By: #### CUBLD #### [place] [address] USABasic Metabolic Panelon [id number] gap [Moles/Vol] 13.1 mmol/LNormal6.0-15.0The [facility] Hospital Physician GroupComment on above:Performed By: #### MG, FE and TIBC, CBC, BMP #### [address] [place] [address] USACalcium [Mass/Vol]8.6 mg/dLNormal8.6-10.3The [facility] Hospital Physician GroupComment on above:Performed By: #### MG, FE and TIBC, CBC, BMP #### [facility] [address] [place] [address] USAChloride [Moles/Vol]87 mmol/WRfd62-335Hej [facility] Hospital Physician GroupComment on above:Performed By: #### MG, FE and TIBC, CBC, BMP #### [facility] [address] [place] [address] USACO2 [Moles/Vol]27.7 mmol/ZFfnzji76.0-31.0The [facility] Physician GroupComment on above:Performed By: #### MG, FE and TIBC, CBC, BMP #### [facility] [address] [place] [address] USACreatinine [Mass/Vol]13.66 mg/dLHigh0.70-1.30The [facility] Hospital Physician GroupComment on above:Performed By: #### MG, FE and TIBC, CBC, BMP #### [facility] [address] [place] [address] USACreatinine Clr Calc Pharmacy7.30NormalThe Critical Access Hospital Physician GroupComment on above:Performed By: #### MG, FE and TIBC, CBC, BMP #### [facility] [address] [place] [address] USAGFR/1.73 sq M.predicted MDRD (S/P/Bld) [Vol rate/Area] 3.470 mL/min/{1.73_m2}NormalThe [facility] Access Hospital Physician GroupComment on above: Performed By: #### MG, FE and TIBC, CBC, BMP #### [facility] [address] [place] [address] USAGlucose [Mass/Vol]114 mg/sAOglr16-955Irq [facility] Physician GroupComment on above:Result Comment: Random Glucose Reference Range is dependent on time and content of last meal. Glucose of more than 200 mg/dL in a nonstressed, ambulatory subject supports the diagnosis of Diabetes Mellitus. ADA recommended reference rangePerformed By: #### MG, FE and TIBC, CBC, BMP #### [place] [address] USAPotassium [Moles/Vol]3.8 mmol/LNormal3.5-5.1The [facility] Physician [facility] BiloxiComment on above:Performed By: #### MG, FE and TIBC, CBC, BMP #### [place] [address] USASodium [Moles/Vol]124 mmol/LOff scale ndo699-707Lib [facility] Hospital Physician GroupComment on above:Result Comment: Critical Result Called to and read back by: CLIFF AGARWAL at: 07/20/2025 04:44:01 by:[id number] By: #### MG, FE and TIBC, CBC, BMP #### [place] [address] USAUrea nitrogen [Mass/Vol]37 mg/dLHigh7-25The [facility] Hospital Physician GroupComment on above:Performed By: #### MG, FE and TIBC, CBC, BMP #### [place] [address] USACell Count/Diff, Fluidon [id number], FluidCloudy NormalThe Critical Access Hospital Physician GroupComment on above:Order Comment: Body Fluid Source: Peritoneal Dialysate Fld Body Fluid Site: PD fluidResult Comment: The reference interval and other method performance specifications have not been established for this body fluid. The test result must be integrated into the clinical context for interpretation.Performed By: #### CUBLD #### [place] [address] USAColor, FluidStrawNormJackson West Medical Center Physician Group Comment on above:Order Comment: Body Fluid Source: Peritoneal Dialysate Fld Body Fluid Site: PD fluidResult Comment: The reference interval and other method performance specifications have not been established for this body fluid. The test result must be integrated into the clinical context for interpretation.Performed By: #### CUBLD #### [place] [address] USAColor, Fluid SupernatantStrawNormJackson West Medical Center Physician GroupComment on above:Order Comment: Body Fluid Source: Peritoneal Dialysate Fld Body Fluid Site: PD fluidResult Comment: The reference interval and other method performance specifications have not been established for this body fluid. The test result must be integrated into the clinical context for interpretation.Performed By: #### CUBLD #### [place] [address] USAEosinophils, Fluid3 /100{WBC}Normal0-3The [facility] Hospital Physician GroupComment on above:Order Comment: Body Fluid Source: Peritoneal Dialysate Fld Body Fluid Site: PD fluidResult Comment: PERFORMED BY: [place] [address] PATHOLOGIST PHYSICS DEPARTMENT CHAIR RUFINO BARROW M.D.Performed By: #### CUBLD #### [place] [address] USALymphocytes, Fluid2 %NormalSt. Mary'S [facility]ician Group Comment on above:Order Comment: Body Fluid Source: Peritoneal Dialysate Fld Body Fluid Site: PD fluidResult Comment: The reference interval and other method performance specifications have not been established for this body fluid. The test result must be integrated into the clinical context for interpretation.Performed By: #### CUBLD #### [place] [address] USAMonocytes/Macrophages, Fluid16 %NormalThe [facility] Physician [facility] BiloxiComment on above:Order Comment: Body Fluid Source: Peritoneal Dialysate Fld Body Fluid Site: PD fluidResult Comment: The reference interval and other method performance specifications have not been established for this body fluid. The test result must be integrated into the clinical context for interpretation.Performed By: #### CUBLD #### [place] [address] USANeutrophil, Fluid79 %NormalThe [facility] Physician Group Comment on above:Order Comment: Body Fluid Source: Peritoneal Dialysate Fld Body Fluid Site: PD fluidResult Comment: The reference interval and other method performance specifications have not been established for this body fluid. The test result must be integrated into the clinical context for interpretation.Performed By: #### CUBLD #### [place] [address] USARBC, Usyoi8845SuuxloFtr [facility] Physician GroupComment on above:Order Comment: Body Fluid Source: Peritoneal Dialysate Fld Body Fluid Site: PD fluidResult Comment: The reference interval and other method performance specifications have not been established for this body fluid. The test result must be integrated into the clinical context for interpretation.Performed By: #### CUBLD #### [place] [address] USATNC, Body [id number] [place] [facility] Comment on above:Order Comment: Body Fluid Source: Peritoneal Dialysate Fld Body Fluid Site: PD fluidResult Comment: The reference interval and other method performance specifications have not been established for this body fluid. The test result must be integrated into the clinical context for interpretation.Performed By: #### CUBLD #### [place] [address] USAComplete Blood Count Auto Diffon [id number] (Bld) [#/Vol]0.0 10*3/uLNormal0.0-0.2The [facility] Physician [facility] BiloxiComment on above: Result Comment: PERFORMED BY: [place] [address] PATHOLOGIST PHYSICS DEPARTMENT CHAIR RUFINO BARROW M.D.Performed By: #### MG, FE and TIBC, CBC, BMP #### [place] [address] USABasophils/100 WBC (Bld)0.4 %Normal.The [facility] Hospital Physician GroupComment on above:Performed By: #### MG, FE and TIBC, CBC, BMP #### [place] [address] USAEosinophils (Bld) [#/Vol]0.1 10*3/uLNormal0.0-0.45The [facility] Hospital Physician GroupComment on above:Performed By: #### MG, FE and TIBC, CBC, BMP #### [place] [address] USAEosinophils/100 WBC (Bld)0.6 %Normal.The [facility] Hospital Physician GroupComment on above:Performed By: #### MG, FE and TIBC, CBC, BMP #### [place] [address] USAErythrocyte distribution width (RBC) [Ratio]17.1 %High 12.0-14.8The [facility] Hospital Physician GroupComment on above:Performed By: #### MG, FE and TIBC, CBC, BMP #### [place] [address] USAHematocrit (Bld) [Volume fraction]22.8 %Low38.8-50.0The [facility] Hospital Physician GroupComment on above:Performed By: #### MG, FE and TIBC, CBC, BMP #### [place] [address] USAHemoglobin (Bld) [Mass/Vol]7.8 g/dLLow13.0-17.0The [facility] Hospital Physician GroupComment on above:Performed By: #### MG, FE and TIBC, CBC, BMP #### [place] [address] USALymphocytes (Bld) [#/Vol]1.0 10*3/uLNormal1.00-4.8The [facility] Physician GroupComment on above:Performed By: #### MG, FE and TIBC, CBC, BMP #### [place] [address] USALymphocytes/100 WBC (Bld)10.4 %Normal.The [facility] Physician GroupComment on above:Performed By: #### MG, FE and TIBC, CBC, BMP #### [place] [address] USAMCH (RBC) [Entitic mass]33.9 feBdctyf26.5-35.2The [facility] Hospital Physician GroupComment on above:Performed By: #### MG, FE and TIBC, CBC, BMP #### [place] [address] USAMCV (RBC) [Entitic vol]98.5 cBJeomos29.5-101The [facility] Hospital Physician GroupComment on above:Performed By: #### MG, FE and TIBC, CBC, BMP #### [facility] [address] [place] [address] USAMean Corpuscular HGB Conc34.4 g/vSReykhs11.5-35.6The [facility] Physician GroupComment on above:Performed By: #### MG, FE and TIBC, CBC, BMP #### [facility] [address] [place] [address] USAMonocytes (Bld) [#/Vol]0.9 10*3/uLHigh0.0-0.8The [facility] Physician GroupComment on above:Performed By: #### MG, FE and TIBC, CBC, BMP #### [facility] [address] [place] [address] USAMonocytes/100 WBC (Bld)9.7 %Normal.The [facility] Hospital Physician GroupComment on above:Performed By: #### MG, FE and TIBC, CBC, BMP #### [facility] [address] [place] [address] USANeutrophils (Bld) [#/Vol]7.7 10*3/uLNormal1.8-7.7The [facility] Physician GroupComment on above:Performed By: #### MG, FE and TIBC, CBC, BMP #### [place] [address] USANeutrophils/100 WBC (Bld)78.9 %Normal.The [facility] Hospital Physician GroupComment on above:Performed By: #### MG, FE and TIBC, CBC, BMP #### [facility] [address] [place] [address] USANRBC%0.1 /100{WBC}Normal0-0.5The [facility] Comment on above:Performed By: #### MG, FE and TIBC, CBC, BMP #### [place] [address] USAPlatelet mean volume (Bld) [Entitic vol]7.2 fLNormal 6.6-10.1The [facility] Hospital Physician GroupComment on above:Performed By: #### MG, FE and TIBC, CBC, BMP #### [place] [address] USAPlatelets (Bld) [#/Vol]203 10*3/mXYjjxab491-391Bcx [facility] Physician GroupComment on above:Performed By: #### MG, FE and TIBC, CBC, BMP #### [place] [address] USARBC (Bld) [#/Vol]2.31 10*6/uLLow3.90-5.60The [facility] Physician GroupComment on above:Performed By: #### MG, FE and TIBC, CBC, BMP #### [place] [address] USAWBC (Bld) [#/Vol]9.8 10*3/uLNormal4.1-10.5The [facility] Hospital Physician GroupComment on above:Performed By: #### MG, FE and TIBC, CBC, BMP #### [place] [address] USAWhite Blood Count9.8 [CFU]/mLNormal4.1-10.5The [facility] Hospital Physician GroupComment on above:Performed By: #### MG, FE and TIBC, CBC, BMP #### [place] [address] USAGram Stainon [id number] observation Gram stain Nom (Unsp spec)Gram Stain Result 4+ White Blood Cells Rare Gram Positive Cocci PERFORMED BY: [place] [address] PATHOLOGIST PHYSICS DEPARTMENT CHAIR RUFINO BARROW M.D.NormalThe [facility] Hospital Physician GroupComment on above: Performed By: #### CUBLD #### [place] [address] USAIron and TIBC Profileon 07-20-2025% Iron Uyfwylhhxd76.5 % Dvh41-53Gol [facility] Physician GroupComment on above:Performed By: #### MG, FE and TIBC, CBC, BMP #### [place] [address] USAIron [Mass/Vol]23 ug/xZJjv14-048Ody [facility] Hospital Physician GroupComment on above:Performed By: #### MG, FE and TIBC, CBC, BMP #### [place] [address] USATotal Iron Binding Lgdmhuac313 ug/iYUgt954-066Grj Critical Access Hospital Physician GroupComment on above:Performed By: #### MG, FE and TIBC, CBC, BMP #### [place] [address] USATransferrin [Mass/Vol]122 mg/iTNki414-648Xya [facility] Access Hospital Physician GroupComment on above:Result Comment: PERFORMED BY: [place] [address] PATHOLOGIST PHYSICS DEPARTMENT CHAIR RUFINO BARROW M.D.Performed By: #### MG, FE and TIBC, CBC, BMP #### [place] [address] USAMagnesiumon 06-32-8508Cuucnvtiw [Mass/Vol]1.9 mg/dLNormal 1.9-2.7The [facility] Access Hospital Physician GroupComment on above:Performed By: #### MG, FE and TIBC, CBC, BMP #### [place] [address] USAOsmolalityon 31-67-6470Bsqkvpwyqv107 hpcnVuiwze137-960Ddh Delaware County Memorial HospitalComment on above:Order Comment: Comment addResult Comment: PERFORMED BY: [place] [address] PATHOLOGIST PHYSICS DEPARTMENT CHAIR RUFINO BARROW M.D.Performed By: #### MG, CBCNO, PHOS, BMP #### [place] [address] USAB-TYPE NATRIURETIC PEPTIDEon 92-86-9009Twzybjqiudz peptide B (Bld) [Mass/Vol]69 pg/mLNormal<=100Akron Children's HospitalComment on above:Performed By: #### PINR #### [facility] ([address] [place] [address] VIRCBC WITH AUTO DIFFERENTIALon 01-33-9613RBBGEWCTN ABSOLUTE COUNT (10*3/UL) BY AUTOMATED COUNT0.1 10*3/uLNormal0.0-0.2ProMedica Kaiser Martinez Medical CenterComment on above:Performed By: #### CBCA #### [facility] ([address] [place] [address] VIRBASOPHILS RELATIVE PERCENT BY AUTOMATED COUNT0.8 %Normal [facility] HospitalCompontiac [facility] hospital on above:Performed By: #### CBCA #### [address] [address] VIRCELLAVISION DIFFERENTIAL TYPEAUTOMATED DIFFERENTIALNormal [facility] Children's HospitalComment on above:Performed By: #### CBCA #### [facility] ([address] [address] VIREosinophils (Bld) [#/Vol]0.1 10*3/uLNormal0.0-0.4[facility] HospitalCompontiac general hospital on above:Performed By: #### CBCA #### [facility] ([address] [place] [address] VIREOSINOPHILS RELATIVE PERCENT BY AUTOMATED COUNT0.9 %Normal [facility] Children's HospitalComment on above:Performed By: #### CBCA #### [facility] ([address] [address] VIRErythrocyte distribution width (RBC) [Ratio]17.3 %High 11.5-15ProCook Children'S Medical CenterComment on above:Performed By: #### CBCA #### [facility] ([address] [place] [address] VIRHematocrit (Bld) [Volume fraction]23.5 %Sxr35-12TjdTmwquxCook Children'S Medical CenterComment on above:Performed By: #### CBCA #### [facility] ([address] [place] [address] VIRHemoglobin (Bld) [Mass/Vol]8.2 g/fFVmm18-24CtkEyjdniCook Children'S Medical CenterComment on above:Performed By: #### CBCA #### [facility] ([address] [place] [address] VIRLYMPHOCYTES ABSOLUTE COUNT (10*3/UL) BY AUTOMATED COUNT1.0 10*3/uLNormal1.0-3.5POur Lady of Mercy Hospital - AndersonComment on above:Performed By: #### CBCA #### [facility] ([address] [place] [address] VIRLYMPHOCYTES RELATIVE PERCENT BY AUTOMATED COUNT10.3 %Normal [facility] Children's HospitalComment on above:Performed By: #### CBCA #### [facility] ([address] [place] [address] VIRMCH (RBC) [Entitic mass]33.8 kbFvgoxn44-50UwfBtcnvrAkron Children's HospitalComment on above:Performed By: #### CBCA #### [facility] ([address] [place] [address] VIRMCHC (RBC) [Mass/Vol]34.7 g/wYPzrbcl05-62MtcQvibkbCook Children'S Medical CenterComment on above:Performed By: #### CBCA #### [facility] ([address] [place] [address] VIRMCV (RBC) [Entitic vol]97 wCYsdful09-751JnjZdmkoy [facility]remont HospitalComment on above:Performed By: #### CBCA #### [facility] ([address] [place] [address] VIRMONOCYTES ABSOLUTE COUNT (10*3/UL) BY AUTOMATED COUNT0.9 10*3/uLNormal0.0-0.9Ak[facility] Children's HospitalComment on above:Performed By: #### CBCA #### [facility] ([address] [place] [address] VIRMONOCYTES RELATIVE PERCENT BY AUTOMATED COUNT9.2 %Normal [facility] Children's HospitalComment on above:Performed By: #### CBCA #### [facility] ([address] [place] [address] VIRNEUTROPHILS ABSOLUTE COUNT BY AUTOMATED COUNT7.8 10*3/uL High1.5-6.6ProCook Children'S Medical CenterComment on above:Performed By: #### CBCA #### [facility] ([address] [place] [address] VIRNEUTROPHILS RELATIVE PERCENT BY AUTOMATED COUNT78.8 %Normal [facility] Children's HospitalComment on above:Performed By: #### CBCA #### [facility] ([address] [place] [address] VIRPlatelet mean volume (Bld) [Entitic vol]7.4 fLNormal7-12 [facility] Children's HospitalComment on above:Performed By: #### CBCA #### [facility] ([address] [place] [address] VIRPlatelets (Bld) [#/Vol]221 10*3/pXStkoas453-950TlkHuphdq [facility]remont HospitalComment on above:Performed By: #### CBCA #### [facility] ([address] [place] [address] VIRRBC COUNT2.42 X10E12/LLow4.1-5.7[facility] Comment on above:Performed By: #### CBCA #### [facility] [address] [place] [address] VIRWBC (Bld) [#/Vol]9.9 10*3/uLNormal4-11ProCook Children'S Medical CenterComment on above:Performed By: #### CBCA #### [facility] ([address] [place] [address] VIRCOMPREHENSIVE METABOLIC PANELon 12-78-6289Qdgyhhv [Mass/Vol]2.3 g/dLLow3.2-5.3POur Lady of Mercy Hospital - AndersonComment on above:Performed By: #### PINR #### [facility] ([address] [place] [address] VIRALP [Catalytic activity/Vol]98 U/QKyevzr68-733TfrIrdfjyCook Children'S Medical CenterComment on above:Performed By: #### PINR #### [address] [place] [address] VIRALT [Catalytic activity/Vol]24 U/LNormal<=40ProCook Children'S Medical CenterComment on above:Performed By: #### PINR #### [facility] ([address] [place] [address] VIRAnion gap [Moles/Vol]12 mmol/LNormal5-15ProCook Children'S Medical CenterComment on above:Performed By: #### PINR #### [address] [place] [address] VIRAST [Catalytic activity/Vol]36 U/LNormal<=41ProCook Children'S Medical CenterComment on above:Performed By: #### PINR #### [facility] ([address] [place] [address] VIRBilirubin [Mass/Vol]1.0 mg/dLNormal0.3-1.2POur Lady of Mercy Hospital - AndersonComment on above:Result Comment: R-Results questionable due to hemolysisPerformed By: #### PINR #### [facility] ([address] [place] [address] VIRCalcium [Mass/Vol]8.8 mg/dLNormal8.5-10.5POur Lady of Mercy Hospital - AndersonComment on above:Performed By: #### PINR #### [facility] ([address] [place] [address] VIRChloride [Moles/Vol]87 mmol/VVap98-833NhdZtdozpCook Children'S Medical CenterComment on above:Performed By: #### PINR #### [facility] ([address] [place] [address] VIRCO2 [Moles/Vol]27 mmol/GXdrjba75-48RfsLrcaumOur Lady of Mercy Hospital - AndersonComment on above:Performed By: #### PINR #### [facility] ([address] [place] [address] VIRCreatinine [Mass/Vol]11.75 mg/dLHigh0.70-1.20ProCook Children'S Medical CenterComment on above:Result Comment: METHOD TRACEABLE TO IDMS STANDARDPerformed By: #### PINR #### [facility] ([address] [place] [address] VIRGFR/1.73 sq M.predicted among non-blacks MDRD (S/P/Bld) [Vol rate/Area]4 mL/min/{1.73_m2}Low>=60ProCook Children'S Medical CenterComment on above:Result Comment: eGFR not reported due to non-numeric value for Creatinine. Reported eGFR is based on the CKD-EPI 2021 equation that does not use a race coefficient.Performed By: #### PINR #### [facility] ([address] [place] [address] VIRGlucose [Mass/Vol]116 mg/kRIfpa89-26UifJvezioCook Children'S Medical CenterComment on above:Performed By: #### PINR #### [facility] ([facility]) [address] [place] [address] [place] [address] VIRPotassium [Moles/Vol]3.8 mmol/LNormal3.5-5.0ProCook Children'S Medical CenterComment on above:Result Comment: R-Specimen hemolyzed, results increasedPerformed By: #### PINR #### [facility] ([address] [place] [address] VIRProtein [Mass/Vol]7.7 g/dLNormal6.0-8.0ProCook Children'S Medical CenterComment on above:Performed By: #### PINR #### [address] [place] [address] VIRSodium [Moles/Vol]126 mmol/LUco457-724PwbSvdzhzCook Children'S Medical CenterComment on above:Performed By: #### PINR #### [facility] ([address] [place] [address] VIRUrea nitrogen [Mass/Vol]31 mg/dLHigh5-27ProCook Children'S Medical CenterComment on above:Performed By: #### PINR #### [facility] ([address] [place] [address] VIRCT ABDOMEN AND PELVIS WO CONTon 55-82-2516KR ABDOMEN AND PELVIS WO CONTCT ABDOMEN AND PELVIS WO CONT CLINICAL INFORMATION: peritoneal dialysis/fever/fatigue. COMPARISON: 09/16/2023. TECHNIQUE: [...] of the spleen. Unremarkable adrenal glands. Atrophic [place] kidneys. Multiple exophytic renal lesions some of [...] with moderate height loss. Superior endplate irregularity Y4cpggjglh more conspicuous than prior exam. Multilevel degenerative [...] by Anton Warner MD on 07/19/2025 3:17 PMNAultman HospitalCT BRAIN WO CONTon 68-78-8939SN BRAIN WO CONTCT BRAIN WO CONT Nonenhanced CT of the brain dated 07/19/2025 [...] by Charo Espinoza MD on 07/19/2025 1:37 PMNAultman HospitalCT CHEST WO CONTon 24-33-2343UZ CHEST WO CONTCT CHEST WO CONT CT CHEST WO CONT: 07/19/2025 1:15 PM [...] atelectasis in the left lower lobe. * Small patchy infiltrate [...] by Frankie Lim MD on 07/19/2025 1:42 PMNAultman HospitalD-DIMERon 07-19-2025D RSETG027 ng/mLHigh1-255[facility] Comment on above:Result Comment: Results >255 ng/mL DDU: Results may be indicative of the presence of VTE. The use of the Wells score and further diagnostic tests should be considered. Elevated D-Dimer levels can be associated with DIC, neoplasm, , trauma and liver disease. Elevated levels of rheumatoidfactor may lead to an overestimation of the D-Dimer level.Performed By: #### DDMR #### [facility] ([facility]) [address] [place] [address] VIRSARS/FLU A+B/RSV BY NAAT/MOLECULAR (M4RT COLLECTION TUBE)on 29-01-0642ZAHQ/FLU A+B/RSV BY NAAT/MOLECULAR (M4RT COLLECTION TUBE)FLU A PCR Negative FLU B PCR Negative RSV BY PCR Negative SARS COV 2 BY PCR Not DetectedNormalNot DetectedProMedica Kaiser Martinez Medical CenterComment on above:Order Comment: The Xpert Xpress SARS-CoV-2/Flu/RSV Plus test is [...] operators who are performing tests using either [employer] or [employer] and is limited to laboratories that meet [...] by this test are generally detectable in upperrespiratory samples during the acute phase of infection. [...] preclude SARS-CoV-2, influenza A, influenza B and RSVinfection and should not be used as the sole basis for treatment or other patient management decisions. Negative results must be combined with clinical observations, patient history and epidemiological information. An Invalid result may occur with specimen-associated inhibition unable to be resolved with specimen repeat.Fact Sheet for Healthcare Providers:https://www.fda.gov/media/561319/downloadFact Sheet for Patients:https://www.fda.gov/media/999714/downloadPerformed By: #### PINR #### [address] [place] [address] VIRTROP I, HIGH SENSITIVITY 1 HOURon 64-28-7276EGTGTBVO I, HIGH CLYYGCLFHGT73 ng/LHigh<21ProCook Children'S Medical CenterComment on above:Order Comment: Elevations of hs-Troponin may be due to causesother than myocardial ischemia.Recommend serial hs-Troponin testing be performed.For the initial evaluation and management of chestpain patients, refer to the algorithms linked below.Emergency Patient:[email or web address]= [email or web address]:[email or web address] =[email or web address]=acaeaPerformed By: #### PINR #### [address] [place] [address] VIRTROPONIN I, HIGH SENSITIVITY 0 HOURon 47-22-0368ACAVCYRP I, HIGH OZIIVKZTANI40 ng/LHigh<21ProCook Children'S Medical CenterComment on above: Performed By: #### PINR #### [address] [address] VIRAPTTon 26-27-4087wJMP Coag (Bld) [Time]30 hEiasin93-69 [facility] Children's HospitalComment on above:Performed By: #### PTT #### [address] [address] VIRB-TYPE NATRIURETIC PEPTIDEon 01-33-6500Tsjjcpkvsis peptide B (Bld) [Mass/Vol]69 pg/mLNormal<=100[facility] Children's HospitalComment on above: Performed By: #### BNP #### [facility] [address] [place] [address] VIRCBC WITH AUTO DIFFERENTIALon 22-60-2660RZERVXRGM ABSOLUTE COUNT (10*3/UL) BY AUTOMATED COUNT0.1 10*3/uLNormal0.0-0.2ProMedica Kaiser Martinez Medical CenterComment on above:Performed By: #### CBCA #### [facility] ([address] [place] [address] VIRBASOPHILS RELATIVE PERCENT BY AUTOMATED COUNT0.8 %Normal [facility] Children's HospitalComment on above:Performed By: #### CBCA #### [address] [address] VIRCELLAVISION DIFFERENTIAL TYPEAUTOMATED DIFFERENTIALNormal [facility] Children's HospitalComment on above:Performed By: #### CBCA #### [address] [address] VIREosinophils (Bld) [#/Vol]0.1 10*3/uLNormal0.0-0.4Ak[facility] Children's HospitalComment on above:Performed By: #### CBCA #### [address] [address] VIREOSINOPHILS RELATIVE PERCENT BY AUTOMATED COUNT1.9 %Normal [facility] Children's HospitalComment on above:Performed By: #### CBCA #### [address] [address] VIRErythrocyte distribution width (RBC) [Ratio]16.3 %High 11.5-15ProCook Children'S Medical CenterComment on above:Performed By: #### CBCA #### [address] [address] VIRHematocrit (Bld) [Volume fraction]19.8 %Idz40-21CvwNuxxwfCook Children'S Medical CenterComment on above:Performed By: #### CBCA #### [facility] ([address] [place] [address] VIRHemoglobin (Bld) [Mass/Vol]6.9 g/dLCritically rtj56-12 [facility] Children's HospitalComment on above:Performed By: #### CBCA #### [facility] ([address] [place] [address] VIRLYMPHOCYTES ABSOLUTE COUNT (10*3/UL) BY AUTOMATED COUNT0.9 10*3/uLLow1.0-3.5POur Lady of Mercy Hospital - AndersonComment on above:Performed By: #### CBCA #### [facility] ([address] [place] [address] VIRLYMPHOCYTES RELATIVE PERCENT BY AUTOMATED COUNT13.8 %Normal [facility] Children's HospitalComment on above:Performed By: #### CBCA #### [facility] ([address] [place] [address] VIRMCH (RBC) [Entitic mass]34.3 vgXjds60-36FaoElulucAkron Children's HospitalComment on above:Performed By: #### CBCA #### [facility] ([address] [place] [address] VIRMCHC (RBC) [Mass/Vol]34.8 g/oMReuzpq29-00RzqZjzenaCook Children'S Medical CenterComment on above:Performed By: #### CBCA #### [facility] ([address] [place] [address] VIRMCV (RBC) [Entitic vol]99 vYMxlqus79-016TueDvmniq [facility] HospitalComment on above:Performed By: #### CBCA #### [facility] ([address] [place] [address] VIRMONOCYTES ABSOLUTE COUNT (10*3/UL) BY AUTOMATED COUNT0.7 10*3/uLNormal0.0-0.9[facility] Children's HospitalComment on above:Performed By: #### CBCA #### [facility] ([facility]) [address] [place] [address] [place] [address] VIRMONOCYTES RELATIVE PERCENT BY AUTOMATED COUNT10.4 %Normal [facility]'s HospitalComment on above:Performed By: #### CBCA #### [facility] ([address] [place] [address] VIRNEUTROPHILS ABSOLUTE COUNT BY AUTOMATED COUNT4.7 10*3/uL Normal1.5-6.6ProCook Children'S Medical CenterComment on above:Performed By: #### CBCA #### [facility] ([address] [place] [address] VIRNEUTROPHILS RELATIVE PERCENT BY AUTOMATED COUNT73.1 %Normal [facility]'s HospitalComment on above:Performed By: #### CBCA #### [facility] ([address] [place] [address] VIRPlatelet mean volume (Bld) [Entitic vol]7.5 fLNormal7-12 [facility]'s HospitalComment on above:Performed By: #### CBCA #### [facility] ([address] [place] [address] VIRPlatelets (Bld) [#/Vol]228 10*3/vXMhfbic708-486RtyVqvlzv [facility] HospitalComment on above:Performed By: #### CBCA #### [facility] ([address] [place] [address] VIRRBC COUNT2.01 X10E12/LLow4.1-5.7[facility] Comment on above:Performed By: #### CBCA #### [facility] ([address] [place] [address] VIRWBC (Bld) [#/Vol]6.5 10*3/uLNormal4-11[facility]'s HospitalComment on above:Performed By: #### CBCA #### [facility] ([place] [address] [place] [address] VIRCOMPREHENSIVE METABOLIC PANELon 59-97-1544Wdcspgr [Mass/Vol]2.6 g/dLLow3.2-5.3POur Lady of Mercy Hospital - AndersonComment on above:Performed By: #### CMP #### [facility] ([place] [address] [place] [address] VIRALP [Catalytic activity/Vol]131 U/JSxje40-633BziTgqomiCook Children'S Medical CenterComment on above:Performed By: #### CMP #### [facility] ([place] [address] [place] [address] VIRALT [Catalytic activity/Vol]26 U/LNormal<=40ProCook Children'S Medical CenterComment on above:Performed By: #### CMP #### [facility] ([place] [address] [place] [address] VIRAnion gap [Moles/Vol]13 mmol/LNormal5-15ProCook Children'S Medical CenterComment on above:Performed By: #### CMP #### [facility] ([place] [address] [place] [address] VIRAST [Catalytic activity/Vol]23 U/LNormal<=41ProCook Children'S Medical CenterComment on above:Performed By: #### CMP #### [facility] ([place] [address] [place] [address] VIRBilirubin [Mass/Vol]0.6 mg/dLNormal0.3-1.2POur Lady of Mercy Hospital - AndersonComment on above:Performed By: #### CMP #### [facility] ([place] [address] [place] [address] VIRCalcium [Mass/Vol]9.1 mg/dLNormal8.5-10.5POur Lady of Mercy Hospital - AndersonComment on above:Performed By: #### CMP #### [facility] ([address] [address] VIRChloride [Moles/Vol]88 mmol/VYfz10-281LwbIgitilCook Children'S Medical CenterComment on above:Performed By: #### CMP #### [facility] ([address] [address] VIRCO2 [Moles/Vol]26 mmol/SQzmkqg78-67PluMuneraOur Lady of Mercy Hospital - AndersonComment on above:Performed By: #### CMP #### [facility] ([address] [address] VIRCreatinine [Mass/Vol]12.84 mg/dLHigh0.70-1.20ProCook Children'S Medical CenterComment on above:Result Comment: METHOD TRACEABLE TO IDMS STANDARDPerformed By: #### CMP #### [facility] ([address] [address] VIRGFR/1.73 sq M.predicted among non-blacks MDRD (S/P/Bld) [Vol rate/Area]4 mL/min/{1.73_m2}Low>=60ProCook Children'S Medical CenterComment on above:Result Comment: eGFR not reported due to non-numeric value for Creatinine. EGFR not calculated due to patient's gender not being defined. Reported eGFR is based on the CKD-EPI 2021 equation that does not use a race coefficient.Performed By: #### CMP #### [facility] ([address] [address] VIRGlucose [Mass/Vol]117 mg/kQDjrg84-44IehQfasjiCook Children'S Medical CenterComment on above:Performed By: #### CMP #### [facility] ([address] [address] VIRPotassium [Moles/Vol]3.2 mmol/LLow3.5-5.0ProCook Children'S Medical CenterComment on above:Performed By: #### CMP #### [facility] ([address] [place] [address] VIRProtein [Mass/Vol]7.7 g/dLNormal6.0-8.0ProCook Children'S Medical CenterComment on above:Performed By: #### CMP #### [facility] ([address] [place] [address] VIRSodium [Moles/Vol]127 mmol/PCkz041-754ZsaYvjorzCook Children'S Medical CenterComment on above:Performed By: #### CMP #### [address] [address] VIRUrea nitrogen [Mass/Vol]42 mg/dLHigh5-27ProCook Children'S Medical CenterComment on above:Performed By: #### CMP #### [facility] ([address] [place] [address] VIRPROTIME AND INRon 77-51-1283WFQ4.0Jstdjr3.9-1.2POur Lady of Mercy Hospital - AndersonComment on above:Performed By: #### PINR #### [facility] ([address] [place] [address] VIRPT Coag (PPP) [Time]10.9 sNormal9.8-13.2POur Lady of Mercy Hospital - AndersonComment on above:Performed By: #### PINR #### [facility] ([address] [place] [address] VIRTYPE AND SCREENon 19-91-0685SGY_SRDPOJXllcujWwlVxtefc [facility] HospitalComment on above:Performed By: #### TSC #### [facility] ([address] [place] [address] VIRPerformed By: #### ABORHR #### [facility] ([facility]) [address] [place] [address]. [place] [address] VIRRH_INTEPPositiveNormalProMedica Kaiser Martinez Medical CenterComment on above:Performed By: #### TSC #### [facility] [address] [place] [address]. [place] [address] VIRPerformed By: #### ABORHR #### [facility] ([address] [place] [address] VIRComp Metabolic Profon [id number]/Glob Ratio0.6Low 1.0-2.5[facility] Medical CenterComment on above:Performed By: #### CP #### [address] [place] [address] Customer Development Manager: Isael Templeton MDGFR/1.73 sq M.predicted among non-blacks MDRD (S/P/Bld) [Vol rate/Area]3 mL/min/{1.73_m2}Low>60[facility]S Medical CenterComment on above:Result Comment: These results are not intended for use in patients <18 years of age. eGFR results are calculated without a race factor using the 2020 CKD-EPI equation. Careful clinical correlation is recommended, particularly when comparing to results calculated using previous equations. The CKD-EPI equation is less accurate in patients with extremes of muscle mass, extra-renal metabolism of creatine, excessive creatine ingestion, or following therapy that affects renal tubular secretion.Performed By: #### CP #### [facility] [address] [place] [address] Customer Development Manager: Isael Templeton MDAlbumin [Mass/Vol]3.1 g/dLLow3.5-5.2[facility] Children'S Medical CenterComment on above:Performed By: #### CP #### [facility] [address] [place] [address] Customer Development Manager: Calos Augustkaline Fpzq548 U/REjwv06-019Rbozu [place]ville HospitalComment on above:Performed By: #### CP #### [facility] [address] [place] [address] [place] [address] Customer Development Manager: Isael Templeton MDALT [Catalytic activity/Vol]27 U/QZyvfdd78-72Iralf [facility] HospitalComment on above:Performed By: #### CP #### [facility] [address] [place] [address] [place] [address] Customer Development Manager: Isael Templeton MDAnion gap [Moles/Vol]20 mmol/LHigh9-16MerWyandot Memorial Hospital HospitalComment on above:Performed By: #### CP #### [address] [place] [address] Customer Development Manager: Isael Templeton MDAST [Catalytic activity/Vol]16 U/IXzhbcl25-98Yizqy [facility]iffin HospitalComment on above:Performed By: #### CP #### [facility] [address] [place] [address] [place] [address] Customer Development Manager: Isael Templeton MDBilirubin [Mass/Vol]0.4 mg/dLNormal0.00-1.20MerWyandot Memorial Hospital HospitalComment on above:Performed By: #### CP #### [address] [place] [address] Customer Development Manager: Isael Templeton MDBUN/CRE Nypxu9Zth4-31Rjaue [facility]in HospitalComment on above:Performed By: #### CP #### [facility] [address] [place] [address] [place] [address] Customer Development Manager: DIMITRIOS Augustalcium [Mass/Vol]9.5 mg/dLNormal8.6-10.4[facility] HospitalComment on above:Performed By: #### CP #### [facility] [address] [place] [address] [place] [place], [place] [id number] Customer Development Manager: DIMITRIOS Augusthloride [Moles/Vol]89 mmol/SXzi53-394Fobql [facility] HospitalComment on above:Performed By: #### CP #### [address] [place] [address] Customer Development Manager: Isael Templeton MDCO2 [Moles/Vol]23 mmol/ZCwrddg82-83Uvlut [facility] HospitalComment on above:Performed By: #### CP #### [address] [place], [place] [id number] Customer Development Manager: DIMITRIOS Augustreatinine [Mass/Vol]13.9 mg/dLCritically high 0.70-1.20[facility] HospitalComment on above:Performed By: #### CP #### [address] [place], [facility]83 Customer Development Manager: Isael Templeton MDGlucose [Mass/Vol]103 mg/lECfss63-63Iinmy [facility]in HospitalComment on above:Performed By: #### CP #### [address] [place] [address] Customer Development Manager: MORTEZA Augustotassium [Moles/Vol]3.8 mmol/LNormal3.7-5.3MUniversity Hospitals Portage Medical Center HospitalComment on above:Performed By: #### CP #### [address] [place], [facility]83 Customer Development Manager: Isael Templeton MDProtein [Mass/Vol]7.9 g/dLNormal6.6-8.7[facility] HospitalComment on above:Performed By: #### CP #### [address] [place], [place] [id number] Customer Development Manager: Isael Templeton MDSodium [Moles/Vol]132 mmol/PLfu831-131Lqmgt [facility] HospitalComment on above:Performed By: #### CP #### [address] [place] [address] Customer Development Manager: Isael Templeton MDUrea nitrogen [Mass/Vol]45 mg/dLHigh8-23[facility] State Health SystemComment on above:Performed By: #### CP #### [facility] [address] [place] [address] Customer Development Manager: DIMITRIOS Augustomprehensive Metabolic Panelon 31-50-9366Wntwyfm [Mass/Vol]3.1 g/dLLow3.5 - 5.2 g/dLBon [facility] CenterAlbumin/Globulin [Mass ratio]0.6 {ratio}Low1.0 - 2.5Bon [facility] HealthALP [Catalytic activity/Vol]165 U/LHigh40 - 129 U/LBon [facility] CenterALT [Catalytic activity/Vol]27 U/L10 - 50 U/LBon [facility] CenterAnion gap [Moles/Vol]20 mmol/LHigh9 - 16 mmol/LBon [facility] HealthAST [Catalytic activity/Vol]16 U/L10 - 50 U/LBon [facility] CenterBilirubin [Mass/Vol]0.4 mg/dL0.00 - 1.20 mg/dLBon [facility] CenterCalcium [Mass/Vol]9.5 mg/dL8.6 - 10.4 mg/dLBon [facility] CenterChloride [Moles/Vol]89 mmol/LLow98 - 107 mmol/LBon [facility] CenterCO2 [Moles/Vol]23 mmol/L20 - 31 mmol/LBon [facility] Creatinine [Mass/Vol]13.9 mg/dLCritically high0.70 - 1.20 mg/dLBon [facility] CenterEst, Glom Filt Kgtw9Fdn- PINFBon [facility] Medical CenterComment on above: These results are not intended for use in patients <18 years of age. eGFR results are calculated without a race factor using the 2020 CKD-EPI equation. Careful clinical correlation is recommended, particularly when comparing to results calculated using previous equations. The CKD-EPI equation is less accurate in patients with extremes of muscle mass, extra-renal metabolism of creatine, excessive creatine ingestion, or following therapy that affects renal tubular secretion. Glucose [Mass/Vol]103 mg/oBMxpj64 - 99 mg/dLBon [facility] Interpretation and review of laboratory resultsAbnormalHospital Corporation Of America Potassium [Moles/Vol]3.8 mmol/L3.7 - 5.3 mmol/LBon [facility] CenterProtein [Mass/Vol]7.9 g/dL6.6 - 8.7 g/dLBon [facility] CenterSodium [Moles/Vol]132 mmol/ODga732 - 145 mmol/LBon [facility] CenterUrea nitrogen [Mass/Vol]45 mg/dLHigh8 - 23 mg/dLBon [facility] CenterUrea nitrogen/Creatinine [Mass ratio]3 mg/mgLow9 - 20Bon [facility] AveraMHPT COMP METABOLIC PROFon 49-54-3033Etdvdlm [Mass/Vol]3.1 g/dLLow3.5 - 5.2 g/dLNOID HealthcareALT [Catalytic activity/Vol]27 U/L10 - 50 U/LNOMS HealthcareAnion gap [Moles/Vol]20 mmol/LHigh9 - 16 mmol/LNOMS HealthcareAST [Catalytic activity/Vol] 16 U/L10 - 50 U/LNOMS HealthcareBilirubin [Mass/Vol]0.4 mg/dL0.00 - 1.20 mg/dL [facility] HealthcareCalcium [Mass/Vol]9.5 mg/dL8.6 - 10.4 mg/dLNOID Healthcare Chloride [Moles/Vol]89 mmol/LLow98 - 107 mmol/LNOMS HealthcareCO2 [Moles/Vol]23 mmol/L20 - 31 mmol/LNOMS HealthcareCreatinine [Mass/Vol]13.9 mg/dLCritically high0.70 - 1.20 mg/dLNOID HealthcareGlucose [Mass/Vol]103 mg/hTHpnm42 - 99 mg/dL [facility] HealthcareInterpretation and review of laboratory resultsAbnormalWright Memorial HospitalMHPT ALBUMIN/GLOB RATIO0.6Low1.0 - 2.5NOCox MonettPT ALKALINE SYUN498 U/LHigh40 - 129 U/LNOMS HealthcareMHPT BUN/CRE PAOKP0Owf9 - 20NOCox MonettPT JFOD7Xsa- PINFNOID HealthcareComment on above: These results are not intended for use in patients <18 years of age. eGFR results are calculated without a race factor using the 2020 CKD-EPI equation. Careful clinical correlation is recommended, particularly when comparing to results calculated using previous equations. The CKD-EPI equation is less accurate in patients with extremes of muscle mass, extra-renal metabolism of creatine, excessive creatine ingestion, or following therapy that affects renal tubular secretion. Potassium [Moles/Vol]3.8 mmol/L3.7 - 5.3 mmol/LNOMS HealthcareProtein [Mass/Vol] 7.9 g/dL6.6 - 8.7 g/dLNOKindred HospitalSodium [Moles/Vol]132 mmol/RRlg410 - 145 mmol/LNOMS HealthcareUrea nitrogen [Mass/Vol]45 mg/dLHigh8 - 23 mg/dLNOKindred HospitalOriginal Ordering Provider: ARETHA Moura MD ALDACLINISYNRegency Hospital of FlorenceB AND HCTon 33-13-7429Gvuntqsiww (Bld) [Volume fraction]29.6 %Gja18-50HkfAqlsrlCook Children'S Medical CenterComment on above:Performed By: #### HH #### [facility] ([id number]) [address] [place] [address]Yddgzygexq (Bld) [Mass/Vol]9.8 g/dLLow13.0-17.0[facility] Children's HospitalComment on above:Performed By: #### HH #### [facility] ([id number]) [address] [place] [address]Qjsbhmkmq Auto (Bld) [#/Vol]Ordered By: David Dawkins on 00-38-8870Myjxiqmci (Bld) [#/Vol]0.0 10*3/uL0.0-0.2FSelect Medical Specialty Hospital - CantonBasophils/100 WBC Auto (Bld)Ordered By: David Dawkins on 05-21-2024 Basophils/100 WBC (Bld)0.5 %.[facility] Medical CenterCalcium [Mass/volume] in Serum or PlasmaOrdered By: David Dawkins on 05-21-2024 Calcium [Mass/Vol]7.8 mg/dLLow8.6-10.3FSelect Medical Specialty Hospital - CantonCarbon dioxide, total [Moles/volume] in Serum or PlasmaOrdered By: David Dawkins on 70-83-4804JH2 [Moles/Vol]26.3 mmol/L21.0-31.0[facility] Medical CenterChloride [Moles/volume] in Serum or PlasmaOrdered By: David Dawkins on 22-34-1897Vtutqkqg [Moles/Vol]91 mmol/BOhy09-078QcrrbsuovMetrohealth Main Campus Medical CenterCreatinine [Mass/volume] in Serum or PlasmaOrdered By: David Dawkins on 12-61-9462Aijlmxxawv [Mass/Vol]14.37 mg/dLHigh0.70-1.30[facility] Medical CenterEosinophils Auto (Bld) [#/Vol]Ordered By: David Dawkins on 87-75-3840Cmkdafdhlof (Bld) [#/Vol]0.2 10*3/uL0.0-0.45[facility] CenterEosinophils/100 WBC Auto (Bld)Ordered By: David Dawkins on 19-82-2812Hleoeymyvli/100 WBC (Bld)3.2 %.[facility] Medical CenterErythrocyte distribution width Auto (RBC) [Ratio]Ordered By: David Dawkins on 25-70-6212Vdvwkvgizat distribution width (RBC) [Ratio]18.7 %High 12.0-14.8[facility] CenterGlucose [Mass/volume] in Serum or PlasmaOrdered By: David Dawkins on 49-30-5143Uceegqu [Mass/Vol]119 mg/dL Hufu36-248ZmkwpiwzjMetrohealth Main Campus Medical CenterComment on above:ADA recommended reference rangeRandom Glucose Reference Range is dependent on time and content of last meal. Glucose of more than 200 mg/dL in a nonstressed, ambulatory subject supports the diagnosisof Diabetes Mellitus.Hematocrit Auto (Bld) [Volume fraction]Ordered By: David Dawkins on 92-91-3403Wgazyedfvi (Bld) [Volume fraction]27.7 %Low38.8-50.0[facility] Medical CenterHemoglobin [Mass/volume] in BloodOrdered By: David Dawkins on 82-91-2991Alboavuekt (Bld) [Mass/Vol]9.2 g/dLLow13.0-17.0[facility] Medical CenterLeukocytes [#/volume] corrected for nucleated erythrocytes in Blood by Automated coun Ordered By: David Dawkins on 62-32-7007MVB corrected for nucl RBC Auto (Bld) [#/Vol]5.4 10*3/uL4.1-10.5FSelect Medical Specialty Hospital - CantonLymphocytes Auto (Bld) [#/Vol]Ordered By: David Dawkins on 49-47-2582Xhurzczgcay (Bld) [#/Vol]0.6 10*3/uLLow1.00-4.8[facility] Lymphocytes/100 WBC Auto (Bld)Ordered By: David Dawkins on 05-21-2024 Lymphocytes/100 WBC (Bld)11.3 %.[facility] HospitalH Auto (RBC) [Entitic mass]Ordered By: David Dawkins on 54-88-9540MHA (RBC) [Entitic mass]30.3 pg27.5-35.2FSelect Medical Specialty Hospital - CantonMCHC Auto (RBC) [Mass/Vol] Ordered By: David Dawkins on 13-44-5297YBCP (RBC) [Mass/Vol]33.3 g/dL 32.5-35.6FSelect Medical Specialty Hospital - CantonMCV Auto (RBC) [Entitic vol]Ordered By: David Dawkins on 56-62-7757EHV (RBC) [Entitic vol]91.0 fL83.5-101 [facility] CenterMonocytes Auto (Bld) [#/Vol]Ordered By: David Dawkins on 21-59-5213Xqddrhrom (Bld) [#/Vol]0.9 10*3/uLHigh0.0-0.8 [facility] CenterMonocytes/100 WBC Auto (Bld)Ordered By: David Dawkins on 63-07-6433Feviecbxr/100 WBC (Bld)16.0 %.[facility] Medical CenterNeutrophils Auto (Bld) [#/Vol]Ordered By: David Dawkins on 07-56-7841Qppsoikwvtl (Bld) [#/Vol]3.7 10*3/uL1.8-7.7FSelect Medical Specialty Hospital - CantonNeutrophils/100 WBC Auto (Bld)Ordered By: David Dawkins on 62-66-4446Lpczsfdvimr/100 WBC (Bld)69.0 %.[facility] CenterNo Panel InformationOrdered By: David Dawkins on 05-21-2024 Estimated GFR (CKD-EPI)3.286 mL/MinMetrohealth Main Campus Medical CenterPharmacy Creatinine Clearance (Chem6.93[facility] CenterNucleated erythrocytes [Presence] in Blood by Automated countOrdered By: David Dawkins on 33-71-2380Vacvljezk RBC Auto Ql (Bld)0.2 /100{WBC}0-0.5FSelect Medical Specialty Hospital - CantonPlatelet mean volume Auto (Bld) [Entitic vol]Ordered By: David Dawkins on 12-76-7958Ypyuzfml mean volume (Bld) [Entitic vol]8.0 fL 6.6-10.1FSelect Medical Specialty Hospital - CantonPlatelets Auto (Bld) [#/Vol]Ordered By: David Dawkins on 84-36-1035Jwsudfevy (Bld) [#/Vol]276 10*3/hB321-180 [facility] CenterPotassium [Moles/volume] in Serum or Plasma Ordered By: David Dawkins on 94-23-3655Ossoouttv [Moles/Vol]3.0 mmol/LLow 3.5-5.1FSelect Medical Specialty Hospital - CantonRBC Auto (Bld) [#/Vol]Ordered By: David Dawkins on 97-70-5785YFR (Bld) [#/Vol]3.05 10*6/uLLow3.90-5.60 [facility] Hospitalerum or plasma anion gap determinationOrdered By: David Dawkins on 77-98-1959Xlyzx gap [Moles/Vol]14.7 mmol/L6.0-15.0 [facility] Hospitalodium [Moles/volume] in Serum or PlasmaOrdered By: David Dawkins on 26-32-9168Stxhwc [Moles/Vol]129 mmol/VTqz123-712 [facility] CenterUrea nitrogen [Mass/volume] in Serum or Plasma Ordered By: David Dawkins on 72-17-6174Gkkr nitrogen [Mass/Vol]48 mg/dL High7-25[facility] CenterVancomycin [Mass/volume] in Serum or PlasmaOrdered By: David Dawkins on 99-24-1634Dlgbllbogb [Mass/Vol]8.7 ug/mL5.0-20.0[facility] Medical CenterComment on above:Last dose: -WBC Auto (Bld) [#/Vol]Ordered By: David Dawkins on 30-83-5323BER (Bld) [#/Vol]5.4 10*3/uL4.1-10.5FSelect Medical Specialty Hospital - CantonActivated partial thromboplastin time (aPTT) in platelet poor plasma by coagulation aOrdered By: David Dawkins on 82-54-8537xRIH Coag (PPP) [Time]34.0 s25.1-36.5FSelect Medical Specialty Hospital - CantonComment on above:A hematocrit value greater than 55% may lead to inaccurate results in coagulation testing. Patientshaving hematocrit values >55% require a special collection tube for coagulation studies. Please c ontact the laboratory at [phone] for redraw instructions.INR in Platelet poor plasma by Coagulation assayOrdered By: David Dawkins on 05-20-2024 INR Coag (PPP) [Relative time]1.1 {INR}[facility] Medical CenterComment on above:INR Therapeutic Range A) Pre- and Peroperative OAT started two weeks before surgery. NOT HIP SURGERY: 1.5 - 2.5 HIP SURGERY: 2 - 3B) Primary and secondary prevention of venous THROMBOSIS: 2 - 3C) Active venous thrombosis, pulmonary embolismand prevention of recurrent venous thrombosis: 2 - 3D) Preve ntion of arterial thromboembolismincluding patients with mechanical heart valves: 3 - 4.5Magnesium [Mass/volume] in Serum or PlasmaOrdered By: David Dawkins on 70-94-0258Sewchlqxf [Mass/Vol]1.8 mg/dLLow1.9-2.7FSelect Medical Specialty Hospital - CantonProthrombin time (PT)Ordered By: David Dawkins on 25-25-8079VB Coag (PPP) [Time]13.0 sHigh9.0-12.9[facility] Medical CenterComment on above:A hematocrit value greater than 55% may lead to inaccurate results in coagulation testing. Patientshaving hematocrit values >55% require a special collection tube for coagulation studies. Please contact the laboratory at [phone] for redraw instructions.Alanine aminotransferase [Enzymatic activity/volume] in Serum or PlasmaOrdered By: Yuri Hammer on 83-63-1273WQJ [Catalytic activity/Vol]51 U/L7-52[facility] CenterAlbumin [Mass/volume] in Serum or Plasma by Bromocresol green (BCG) dye binding methoOrdered By: Yuri Hammer on 76-52-6994Sieejad BCG dye [Mass/Vol] 2.7 g/dLLow3.5-5.7FSelect Medical Specialty Hospital - CantonAlkaline phosphatase [Enzymatic activity/volume] in Serum or PlasmaOrdered By: Yuri Hammer on 04-22-4310XSJ [Catalytic activity/Vol]67 U/A19-697AwgdiygvwMetrohealth Main Campus Medical CenterAnisocytosis LM Ql (Bld)Ordered By: Yuri Hammer on 05-19-2024 Anisocytosis Ql (Bld)SlightMetrohealth Main Campus Medical CenterAspartate aminotransferase [Enzymatic activity/volume] in Serum or PlasmaOrdered By: Yuri Hammer on 83-36-2854IJX [Catalytic activity/Vol]43 U/JBbtx57-61EiqzqhrzzMetrohealth Main Campus Medical CenterBasophils Auto (Bld) [#/Vol]Ordered By: Yuri Hammer on 17-18-1239Lthfxdgsg (Bld) [#/Vol]0.1 10*3/uL0.0-0.2FSelect Medical Specialty Hospital - CantonBasophils/100 WBC Auto (Bld)Ordered By: Yuri Hammer on 05-19-2024 Basophils/100 WBC (Bld)0.3 %.[facility] Medical CenterBilirubin.total [Mass/volume] in Serum or PlasmaOrdered By: Yuri Hammer on 66-15-1612Ekaamblln [Mass/Vol]0.3 mg/dL0.3-1.0[facility] CenterBody fluid differential cell countOrdered By: Dom Faustin on 32-35-1710Brryxjbnhiyw panel (Body fld)93 %[facility] CenterComment on above:The reference interval and other method performance specifications have not been established for this body fluid. The test result must be integrated into the clinical context for interpretation.Differential panel (Body fld)1 %[facility] Medical CenterComment on above:Mesothelial CellsThe reference interval and other method performance specifications have not been established for this body fluid. The test result must be integrated into the clinical context for inte rpretation.Body fluid differential cell countOrdered By: Yuri Hammer on 74-56-8337Konzgvpulfxh panel (Body fld)13 %[facility] Comment on above:The reference interval and other method performance specifications have not been established for this body fluid. The test result must be integrated into the clinical context for interpretation.Calcium [Mass/volume] in Serum or PlasmaOrdered By: Yuri Hammer on 18-38-3687Fnvlmzy [Mass/Vol]8.1 mg/dLLow8.6-10.3FSelect Medical Specialty Hospital - CantonCarbon dioxide, total [Moles/volume] in Serum or PlasmaOrdered By: Yuri Hammer on 05-19-2024 CO2 [Moles/Vol]25.8 mmol/L21.0-31.0[facility] CenterCells Counted Total [#] in Body fluidOrdered By: Dom Faustin on 44-48-4811Aydfo Counted Total (Body fld) [#]287 mm^3FSelect Medical Specialty Hospital - CantonComment on above:The reference interval and other method performance specifications have not been established for this body fluid. The test result must be integrated into the clinical context for interpretation.Cells Counted Total [#] in Body fluidOrdered By: Yuri Hammer on 07-49-2543Xzxvz Counted Total (Body fld) [#] 124 mm^3FSelect Medical Specialty Hospital - CantonComment on above:The reference interval and other method performance specifications have not been established for this body fluid. The test result must be integrated into the clinical context for interpretation.Chloride [Moles/volume] in Serum or PlasmaOrdered By: Yuri Hammer on 77-74-1530Qnjcqmhk [Moles/Vol]88 mmol/EHlb74-436AlwutiavjMetrohealth Main Campus Medical CenterColor of Spun Body fluidOrdered By: Dom Faustin on 01-54-0396Pzeng (Spun body fld)[facility] HospitalComment on above:The reference interval and other method performance specifications have not been established for this body fluid. The test result must be integrated into the clinical context for interpretation.Color of Spun Body fluidOrdered By: Yuri Hammer on 32-21-8215Cgtjt (Spun body fld)[facility] Comment on above:The reference interval and other method performance specifications have not been established for this body fluid. The test result must be integrated into the clinical context for interpretation.Creatinine [Mass/volume] in Serum or PlasmaOrdered By: Yuri Hammer on 05-19-2024 Creatinine [Mass/Vol]14.05 mg/dLHigh0.70-1.30[facility] Determination of appearance of body fluidOrdered By: Dom Faustin on 05-19-2024 Appearance (Body fld)ClearMetrohealth Main Campus Medical CenterComment on above:The reference interval and other method performance specifications have not been established for this body fluid. The test result must be integrated into the clinical context for interpretation.Determination of appearance of body fluid Ordered By: Yuri Hammer on 48-79-9507Wqnxotmmgv (Body fld)[facility] Medical CenterComment on above:The reference interval and other method performance specifications have not been established for this body fluid. The test result must be integrated into the clinical context for interpretation. Eosinophils Auto (Bld) [#/Vol]Ordered By: Yuri Hammer on 20-61-9956Jbypesdjlqe (Bld) [#/Vol]0.2 10*3/uL0.0-0.45[facility] Eosinophils/100 WBC Auto (Bld)Ordered By: Yuri Hammer on 05-19-2024 Eosinophils/100 WBC (Bld)1.4 %.[facility] Medical CenterErythrocyte distribution width Auto (RBC) [Ratio]Ordered By: Yuri Hammer on 05-19-2024 Erythrocyte distribution width (RBC) [Ratio]18.4 %High12.0-14.8[facility] Medical CenterErythrocytes [#/volume] in Body fluid by Automated count Ordered By: Dom Faustin on 76-15-5520ANH Auto (Body fld) [#/Vol]2653 mm^3 [facility] CenterComment on above:The reference interval and other method performance specifications have not been established for this body fluid. The test result must be integrated into the clinical context for interpretation.Erythrocytes [#/volume] in Body fluid by Automated countOrdered By: Yuri Hammer on 95-02-7335XUN Auto (Body fld) [#/Vol]1009 mm^3FSelect Medical Specialty Hospital - CantonComment on above:The reference interval and other method performance specifications have not been established for this body fluid. The test result must be integrated into the clinical context for interpretation. Evaluation of color of body fluidOrdered By: Dom Faustin on 92-68-2512Ccuun (Body fld)[facility] HospitalComment on above:The reference interval and other method performance specifications have not been established for this body fluid. The test result must be integrated into the clinical context for interpretation.Evaluation of color of body fluidOrdered By: Yuri Hammer on 69-82-7660Ssvii (Body fld)[facility] Comment on above:The reference interval and other method performance specifications have not been established for this body fluid. The test result must be integrated into the clinical context for interpretation.Globulin Calc (S) [Mass/Vol]Ordered By: Yuri Hammer on 61-85-6562Sutmqxzw (S) [Mass/Vol]4.5 g/dLMetrohealth Main Campus Medical CenterGlucose [Mass/volume] in Serum or Plasma Ordered By: Yuri Hammer on 58-86-4511Ecencna [Mass/Vol]106 mg/jCBcfq37-696 [facility] CenterComment on above:ADA recommended reference rangeRandom Glucose Reference Range is dependent on time and content of last meal. Glucose of more than 200 mg/dL in a nonstressed, ambulatory subject supports the diagnosisof Diabetes Mellitus.Gram stain for investigation of transfusion reactionOrdered By: Dom Faustin on 39-79-1065Gnuythefyqw observation Gram stain Nom (Unsp spec)No Anaerobes Isolated 2 DaysMetrohealth Main Campus Medical CenterGram stain for investigation of transfusion reactionOrdered By: Yuri Hammer on 32-70-9585Tpcldjecxyz observation Gram stain Nom (Unsp spec) [facility] CenterMicroscopic observation Gram stain Nom (Unsp spec)No Anaerobes Isolated 2 DaysMetrohealth Main Campus Medical CenterHematocrit Auto (Bld) [Volume fraction]Ordered By: Yuri Hammer on 65-97-2273Nfdlntopdt (Bld) [Volume fraction]27.8 %Low38.8-50.0[facility] Hemoglobin [Mass/volume] in BloodOrdered By: Yuri Hammer on 05-19-2024 Hemoglobin (Bld) [Mass/Vol]9.3 g/dLLow13.0-17.0[facility] Leukocytes [#/volume] corrected for nucleated erythrocytes in Blood by Automated counOrdered By: Yuri Hammer on 28-20-7878QYX corrected for nucl RBC Auto (Bld) [#/Vol]15.9 10*3/uLHigh4.1-10.5FSelect Medical Specialty Hospital - Canton Lymphocytes Auto (Bld) [#/Vol]Ordered By: Yuri Hammer on 48-91-1323Nykogswmnty (Bld) [#/Vol]1.9 10*3/uL1.00-4.8[facility] Lymphocytes/100 WBC Auto (Bld)Ordered By: Yuri Hammer on 05-19-2024 Lymphocytes/100 WBC (Bld)11.9 %.[facility] Auto (RBC) [Entitic mass]Ordered By: Yuri Hammer on 61-27-5977FKM (RBC) [Entitic mass] 30.1 pg27.5-35.2FWhite HospitalHC Auto (RBC) [Mass/Vol] Ordered By: Yuri Hammer on 88-72-0806QWWZ (RBC) [Mass/Vol]33.6 g/dL32.5-35.6 [facility] CenterMCV Auto (RBC) [Entitic vol]Ordered By: Yuri Hammer on 79-43-9315UEV (RBC) [Entitic vol]89.6 fL83.5-101[facility] CenterMagnesium [Mass/volume] in Serum or PlasmaOrdered By: Yuri Hammer on 29-10-5867Hchuebuha [Mass/Vol]2.0 mg/dL1.9-2.7[facility] body fluid eosinophils/100 leukocytesOrdered By: Dom Faustin on 80-91-4550Ovbtosnopjn/100 WBC Manual cnt (Body fld)0 /100{WBC}0-3 [facility] body fluid eosinophils/100 leukocytes Ordered By: Yuri Hammer on 04-50-5457Nwfejlgzkoi/100 WBC Manual cnt (Body fld) 2 /100{WBC}0-3FC[facility] body fluid lymphocytes/100 leukocytesOrdered By: Dom Faustin on 03-73-5577Vchebxcstmy/100 WBC Manual cnt (Body fld)4 %[facility] CenterCompontiac general hospital on above:The reference interval and other method performance specifications have not been established for this body fluid. The test result must be integrated into the clinical context for interpretation.Manual body fluid lymphocytes/100 leukocytesOrdered By: Yuri Hammer on 79-21-3934Kdydjhkxtzj/100 WBC Manual cnt (Body fld)72 % [facility] CenterCompontiac general hospital on above:The reference interval and other method performance specifications have not been established for this body fluid. The test result must be integrated into the clinical context for interpretation.Monocyte distribution width [Entitic volume] in Blood by AutomatedOrdered By: Yrui Hammer on 64-76-6265Gsskgpiw distribution width Auto (Bld) [Entitic vol]23.25 %High0.00-20.00[facility] CenterComment on above:For adults in ED, MDW > 20.0 may be associated with a higher risk of sepsis during the first 12 hrs of hospital admissionMonocytes Auto (Bld) [#/Vol] Ordered By: Yuri Hammer on 51-78-1470Kviiuxnkm (Bld) [#/Vol]1.7 10*3/uLHigh 0.0-0.8[facility] CenterMonocytes/100 WBC Auto (Bld)Ordered By: Yuri Hammer on 35-19-2899Lybsufvva/100 WBC (Bld)10.7 %.[facility] CenterNatriuretic peptide B [Mass/Vol]Ordered By: Yuri Hammer on 56-99-7297Ancwhsdkyet peptide B (Bld) [Mass/Vol]191.0 pg/mLHigh5-100[facility] CenterNeutrophils Auto (Bld) [#/Vol]Ordered By: Yuri Hammer on 57-02-2020Jjqoutiiilq (Bld) [#/Vol]12.0 10*3/uLHigh1.8-7.7FSelect Medical Specialty Hospital - CantonNeutrophils/100 WBC Auto (Bld)Ordered By: Yuri Hammer on 41-96-0834Cuacnqxltfe/100 WBC (Bld)75.7 %.[facility] Neutrophils/100 WBC Manual cnt (Body fld)Ordered By: Dom Faustin on 05-19-2024 Neutrophils/100 WBC (Body fld)2 %[facility] CenterComment on above:The reference interval and other method performance specifications have not been established for this body fluid. The test result must be integrated into the clinical context for interpretation.Neutrophils/100 WBC Manual cnt (Body fld)Ordered By: Yuri Hammer on 44-14-8397Fvzhgdcnzvm/100 WBC (Body fld) 13 %[facility] CenterComment on above:The reference interval and other method performance specifications have not been established for this body fluid. The test result must be integrated into the clinical context for interpretation.No Panel InformationOrdered By: Yuri Hammer on 05-19-2024 Estimated GFR (CKD-EPI)3.376 mL/MinMetrohealth Main Campus Medical CenterPharmacy Creatinine Clearance (Chem6.93[facility] CenterNucleated erythrocytes [Presence] in Blood by Automated countOrdered By: Yuri Hammer on 67-60-1135Styoslzuf RBC Auto Ql (Bld)0.6 /100{WBC}High0-0.5FSelect Medical Specialty Hospital - CantonOvalocyte detectionOrdered By: Yuri Hammer on 05-19-2024 Ovalocytes LM Ql (Bld)SlightMetrohealth Main Campus Medical CenterPhosphate [Mass/volume] in Serum or PlasmaOrdered By: Yuri Hammer on 49-68-6666Owgekdjdd [Mass/Vol]5.3 mg/dLHigh2.5-4.5FCleveland Clinic Hillcrest Hospitallet adequacy [Presence] in Blood by Light microscopyOrdered By: Yuri Hammer on 07-40-7986Wtpxklarf LM Ql (Bld)NormalNormSelect Medical Specialty Hospital [facility] Platelet mean volume Auto (Bld) [Entitic vol]Ordered By: Yuri Hammer on 16-14-0269Whlgjjqa mean volume (Bld) [Entitic vol]8.8 fL6.6-10.1FSelect Medical Specialty Hospital - CantonPlatelet morphology finding [Identifier] in BloodOrdered By: Yuri Hammer on 62-93-5929Hlkzljzw morphology finding Nom (Bld)NormalNormal [facility] CenterPlatelets Auto (Bld) [#/Vol]Ordered By: Yuri Hammer on 08-04-8909Ukgdyevzu (Bld) [#/Vol]239 10*3/lF298-394UnmwzmyapMetrohealth Main Campus Medical CenterPoikilocytosis [Presence] in Blood by Light microscopyOrdered By: Yuri Hammer on 62-93-9053Jzfnmohgobmvpt LM Ql (Bld)SlightMetrohealth Main Campus Medical CenterPolychromasia [Presence] in Blood by Light microscopyOrdered By: Yuri Hammer on 56-72-8508Vxdtrciysxqkm LM Ql (Bld)[facility] CenterPotassium [Moles/volume] in Serum or PlasmaOrdered By: Yuri Hammer on 31-24-0530Pfeqossbn [Moles/Vol]2.9 mmol/LLow3.5-5.1FSelect Medical Specialty Hospital - CantonComment on above:Critical Result Called to and read back by: LAURI PACHECO at: 05/19/2024 04:05:17 by:[id number] [Mass/volume] in Serum or Plasma Ordered By: Yuri Hammer on 05-77-7664Ctwmjtr [Mass/Vol]7.2 g/dL6.4-8.9 [facility] CenterRB Auto (Bld) [#/Vol]Ordered By: Yuri Hammer on 43-22-3388YOX (Bld) [#/Vol]3.10 10*6/uLLow3.90-5.60[facility] morphologyOrdered By: Yuri Hammer on 66-09-0711GTT morphology finding Nom (Bld)N/AFUniversity Hospitals Portage Medical Centererum or plasma albumin/globulin mass ratioOrdered By: Yuri Hammer on 05-19-2024 Albumin/Globulin [Mass ratio]0.6 {ratio}[facility] Hospitalerum or plasma anion gap determinationOrdered By: Yuri Hammer on 03-57-1143Uqpkf gap [Moles/Vol]16.1 mmol/LHigh6.0-15.0[facility] Hospitalodium [Moles/volume] in Serum or PlasmaOrdered By: Yuri Hammer on 38-27-6485Wqowax [Moles/Vol]127 mmol/DOpn403-383UfhdicyokMetrohealth Main Campus Medical CenterTeardrop cell detectionOrdered By: Yuri Hammer on 99-96-2642Iygvlicfwi LM Ql (Bld)Slight [facility] CenterTroponin I.cardiac [Mass/volume] in Serum or Plasma by Detection limit <= 0.01 ng/Ordered By: Yuri Hammer on 05-19-2024 Troponin I.cardiac DL <= 0.01 ng/mL [Mass/Vol]49.5 pg/mLHigh0.0-20.0[facility] CenterUrea nitrogen [Mass/volume] in Serum or PlasmaOrdered By: Yuri Hammer on 18-31-5422Humx nitrogen [Mass/Vol]47 mg/dLHigh7-25[facility] CenterWBC Auto (Bld) [#/Vol]Ordered By: Yuri Hammer on 91-67-7607NLY (Bld) [#/Vol]18.9 10*3/uLHigh4.1-10.5FSelect Medical Specialty Hospital - CantonVancomycin [Mass/volume] in Serum or PlasmaOrdered By: Ron Ortega on 94-89-3084Ghglkialym [Mass/Vol]15.8 ug/mL5.0-20.0[facility] CenterComment on above:Last dose: -Basophils Auto (Bld) [#/Vol]Ordered By: Ron Cardenas on 31-41-9846Iuvilsiir (Bld) [#/Vol]0.1 10*3/uL0.0-0.2FSelect Medical Specialty Hospital - CantonBasophils/100 WBC Auto (Bld)Ordered By: Ron Cardenas on 81-62-4282Xliduwxqu/100 WBC (Bld)1.3 %.[facility] CenterCalcium [Mass/volume] in Serum or PlasmaOrdered By: Ron Cardenas on 47-25-5719Saxlwos [Mass/Vol]8.4 mg/dL8.6-10.3FSelect Medical Specialty Hospital - CantonCarbon dioxide, total [Moles/volume] in Serum or PlasmaOrdered By: Ron Cardenas on 09-21-2023 CO2 [Moles/Vol]29.6 mmol/L21.0-31.0[facility] CenterChloride [Moles/volume] in Serum or PlasmaOrdered By: Ron Cardenas on 09-21-2023 Chloride [Moles/Vol]98 mmol/Q74-068ObrczutxcMetrohealth Main Campus Medical CenterCreatinine [Mass/volume] in Serum or PlasmaOrdered By: Ron Cardensa on 09-21-2023 Creatinine [Mass/Vol]10.78 mg/dL0.70-1.30[facility] Comment on above:Delta: 11.53 on 09/20/23-0652Eosinophils Auto (Bld) [#/Vol] Ordered By: Ron Cardenas on 77-50-2497Ptdfkxmeqoq (Bld) [#/Vol]0.1 10*3/uL 0.0-0.45[facility] CenterEosinophils/100 WBC Auto (Bld)Ordered By: Ron Cardenas on 37-29-0381Emmjopstbkl/100 WBC (Bld)2.0 %.[facility] CenterErythrocyte distribution width Auto (RBC) [Ratio]Ordered By: Ron Cardenas on 99-94-1567Wugkmslmrlq distribution width (RBC) [Ratio]17.4 %12.0-14.8[facility] CenterGlucose [Mass/volume] in Serum or PlasmaOrdered By: Ron Cardenas on 40-98-5424Voaqnoz [Mass/Vol]108 mg/pI06-870 [facility] CenterComment on above:ADA recommended reference rangeRandom Glucose Reference Range is dependent on time and content of last meal. Glucose of more than 200 mg/dL in a nonstressed, ambulatory subject supports the diagnosisof Diabetes Mellitus.Hematocrit Auto (Bld) [Volume fraction]Ordered By: Ron Cardenas on 16-13-1742Oszdchynzc (Bld) [Volume fraction]35.7 %38.8-50.0[facility] CenterHemoglobin [Mass/volume] in BloodOrdered By: Ron Cardenas on 02-54-5537Dkndmcuwhx (Bld) [Mass/Vol]11.8 g/dL13.0-17.0[facility] CenterLeukocytes [#/volume] corrected for nucleated erythrocytes in Blood by Automated coun Ordered By: Ron Cardenas on 69-95-2231KMP corrected for nucl RBC Auto (Bld) [#/Vol]5.7 10*3/uL4.1-10.5FSelect Medical Specialty Hospital - CantonLymphocytes Auto (Bld) [#/Vol]Ordered By: Ron Cardenas on 83-82-6202Csqizrrodnw (Bld) [#/Vol] 1.1 10*3/uL1.00-4.8[facility] CenterLymphocytes/100 WBC Auto (Bld)Ordered By: Ron Cardenas on 56-62-8519Yvjmicthntd/100 WBC (Bld)20.0 %. [facility] Auto (RBC) [Entitic mass]Ordered By: Ron Cardenas on 40-76-8832OJA (RBC) [Entitic mass]29.8 pg27.5-35.2FSelect Medical Specialty Hospital - CantonMCHC Auto (RBC) [Mass/Vol]Ordered By: Ron Cardenas on 72-96-2558RXJQ (RBC) [Mass/Vol]33.0 g/dL32.5-35.6FSelect Medical Specialty Hospital - CantonMCV Auto (RBC) [Entitic vol]Ordered By: Ron Cardenas on 60-05-6769DJM (RBC) [Entitic vol]90.3 fL83.5-101[facility] CenterMonocytes Auto (Bld) [#/Vol]Ordered By: Ron Cardenas on 39-19-5867Lnkivqwit (Bld) [#/Vol]0.6 10*3/uL0.0-0.8[facility] CenterMonocytes/100 WBC Auto (Bld)Ordered By: Ron Cardenas on 80-32-5412Ctyzekqvj/100 WBC (Bld)10.2 %. [facility] CenterNeutrophils Auto (Bld) [#/Vol]Ordered By: Ron Cardenas on 76-08-2742Dybmbpijkaw (Bld) [#/Vol]3.8 10*3/uL1.8-7.7FSelect Medical Specialty Hospital - CantonNeutrophils/100 WBC Auto (Bld)Ordered By: Ron Cardenas on 36-29-9554Mornuibfdxl/100 WBC (Bld)66.5 %.[facility] No Panel InformationOrdered By: Ron Cardenas on 18-96-6285Hygmtzafy GFR (CKD-EPI)4.668 mL/MinMetrohealth Main Campus Medical CenterPharmacy Creatinine Clearance (Chem8.62[facility] CenterNucleated erythrocytes [Presence] in Blood by Automated countOrdered By: Ron Cardenas on 09-21-2023 Nucleated RBC Auto Ql (Bld)0.1 /100{WBC}0-0.5FSelect Medical Specialty Hospital - Canton Platelet mean volume Auto (Bld) [Entitic vol]Ordered By: Ron Cardenas on 04-57-2349Cxedmnix mean volume (Bld) [Entitic vol]8.9 fL6.6-10.1FSelect Medical Specialty Hospital - CantonPlatelets Auto (Bld) [#/Vol]Ordered By: Ron Cardenas on 02-15-6252Zgyctizzc (Bld) [#/Vol]162 10*3/mT898-912PqyhtrkrhMetrohealth Main Campus Medical CenterPotassium [Moles/volume] in Serum or PlasmaOrdered By: Ron Cardenas on 53-66-7618Zeuahkqoe [Moles/Vol]3.2 mmol/L3.5-5.1FSelect Medical Specialty Hospital - CantonRBC Auto (Bld) [#/Vol]Ordered By: Ron Cardenas on 47-80-0692GZH (Bld) [#/Vol]3.95 10*6/uL3.90-5.60[facility] Hospitalerum or plasma anion gap determinationOrdered By: Ron Cardenas on 51-06-9932Jvpig gap [Moles/Vol]12.6 mmol/L6.0-15.0[facility] Hospitalodium [Moles/volume] in Serum or PlasmaOrdered By: Ron Cardenas on 15-03-9296Reubbg [Moles/Vol]137 mmol/U267-522UaudaqmbkMetrohealth Main Campus Medical CenterUrea nitrogen [Mass/volume] in Serum or PlasmaOrdered By: Ron Cardenas on 26-06-3759Idjk nitrogen [Mass/Vol]38 mg/dL7-25[facility] CenterWBC Auto (Bld) [#/Vol]Ordered By: Ron Cardenas on 35-02-7524JJQ (Bld) [#/Vol]5.7 10*3/uL 4.1-10.5FSelect Medical Specialty Hospital - CantonAnisocytosis LM Ql (Bld)Ordered By: Ron Cardenas on 06-11-9157Kjiaruvnqfyx Ql (Bld)[facility] HospitalOvalocyte detectionOrdered By: Ron Cardenas on 09-18-2023 Ovalocytes LM Ql (Bld)[facility] HospitalPlatelet adequacy [Presence] in Blood by Light microscopyOrdered By: Ron Cardenas on 09-18-2023 Platelets LM Ql (Bld)DecreasedTuscarawas HospitalPlatelet morphology finding [Identifier] in BloodOrdered By: Ron Cardenas on 09-18-2023 Platelet morphology finding Nom (Bld)NormalNormSelect Medical Specialty Hospital - ColumbusPoikilocytosis [Presence] in Blood by Light microscopyOrdered By: Ron Cardenas on 97-05-9811Dglvmjxlryxiji LM Ql (Bld)[facility] HospitalRBC morphologyOrdered By: Ron Cardenas on 44-33-3306YEY morphology finding Nom (Bld)N/AFSelect Medical Specialty Hospital - CantonAerobic cultureOrdered By: Ron Cardenas on 73-28-0628Jrwlhmdt identified Aer cx Nom (Unsp spec)2 Days [facility] CenterAlanine aminotransferase [Enzymatic activity/volume] in Serum or PlasmaOrdered By: Ron Cardenas on 33-95-2157JTJ [Catalytic activity/Vol]69 U/L7-52[facility] CenterAlbumin [Mass/volume] in Serum or Plasma by Bromocresol green (BCG) dye binding metho Ordered By: Ron Cardenas on 14-83-4527Crqytkg BCG dye [Mass/Vol]2.5 g/dL 3.5-5.7FSelect Medical Specialty Hospital - CantonAlkaline phosphatase [Enzymatic activity/volume] in Serum or PlasmaOrdered By: Ron Cardenas on 47-07-9072JNU [Catalytic activity/Vol]77 U/G02-943WabqcdjdhMetrohealth Main Campus Medical CenterAspartate aminotransferase [Enzymatic activity/volume] in Serum or PlasmaOrdered By: Ron Cardenas on 44-57-3729LHU [Catalytic activity/Vol]46 U/Q48-48RoyxzmaxvMetrohealth Main Campus Medical CenterBasophils/100 WBC Manual cnt (Bld)Ordered By: Ron Cardenas on 10-76-6199Xfaeqcqwi/100 WBC (Bld)0 %0-2FSelect Medical Specialty Hospital - CantonBilirubin.total [Mass/volume] in Serum or PlasmaOrdered By: Ron Cardenas on 72-64-7567Kpbfpybnw [Mass/Vol]0.5 mg/dL0.3-1.0[facility] CenterEosinophils/100 WBC Manual cnt (Bld)Ordered By: Ron Cardenas on 63-73-0825Rhjmavsnsvr/100 WBC (Bld)0 %1-3FSelect Medical Specialty Hospital - Canton Globulin Calc (S) [Mass/Vol]Ordered By: Ron Cardenas on 88-33-3761Obliqnug (S) [Mass/Vol]3.4 g/dLMetrohealth Main Campus Medical CenterGram stain for investigation of transfusion reactionOrdered By: Ron Cardenas on 28-01-1286Ahlyljhfhut observation Gram stain Nom (Unsp spec)[facility] Lymphocytes/100 WBC Manual cnt (Bld)Ordered By: Ron Cardenas on 09-17-2023 Lymphocytes/100 WBC (Bld)8 %18-42[facility] CenterMonocytes/100 WBC Manual cnt (Bld)Ordered By: Ron Cardenas on 36-57-9006Zemfgisfd/100 WBC (Bld)9 %2-11[facility] CenterProtein [Mass/volume] in Serum or PlasmaOrdered By: Ron Cardenas on 84-62-7846Vmlkyca [Mass/Vol]5.9 g/dL6.4-8.9 [facility] Hospitalegmented neutrophils/100 WBC Manual cnt (Bld) Ordered By: Ron Cardenas on 02-20-4699Evdtbupxl neutrophils/100 WBC (Bld)83 % 50-70[facility] Hospitalerum or plasma albumin/globulin mass ratioOrdered By: Ron Cardenas on 96-50-6638Arhvsna/Globulin [Mass ratio]0.7 {ratio}[facility] Hospitalerum or plasma trough vancomycin level Ordered By: Rochelle Fuller on 94-38-6998Fnnmtouwms trough [Mass/Vol]14.5 ug/mL 10.0-20.0[facility] CenterComment on above:Last dose: -Aerobic cultureOrdered By: Rochelle Fuller on 70-98-6363Jyvzuqom identified Aer cx Nom (Unsp spec)[facility] CenterAnaerobic cultureOrdered By: Rochelle Fuller on 75-25-4892Bsalndwk identified Anaer cx Nom (Unsp spec)No Anaerobes Isolated 3 DaysMetrohealth Main Campus Medical CenterBody fluid differential cell countOrdered By: Rochelle Fuller on 62-77-0399Vsdirjcursek panel (Body fld)70 % [facility] CenterComment on above:The reference interval and other method performance specifications have not been established for this body fluid. The test result must be integrated into the clinical context for interpretation.Color of Spun Body fluidOrdered By: Rochelle Fuller on 09-16-2023 Color (Spun body fld)YellowMetrohealth Main Campus Medical CenterComment on above: Light YellowThe reference interval and other method performance specifications have not been established for this body fluid. The test result must be integrated into the clinical context for interpretation.Creatine kinase [Enzymatic activity/volume] in Serum or PlasmaOrdered By: Ron Cardenas on 24-21-6027XF [Catalytic activity/Vol]49 U/T17-589YfalmlovgMetrohealth Main Campus Medical CenterDetermination of appearance of body fluidOrdered By: Rochelle Fuller on 72-44-9217Grreftgbxs (Body fld)HazyMetrohealth Main Campus Medical CenterComment on above:The reference interval and other method performance specifications have not been established for this body fluid. The test result must be integrated into the clinical context for interpretation.Evaluation of color of body fluid Ordered By: Rohcelle Fuller on 34-69-8557Lhicy (Body fld)YellowMetrohealth Main Campus Medical CenterComment on above:Light YellowThe reference interval and other method performance specifications have not been established for this body fluid. The test result must be integrated into the clinical context for interpretation. Gram stain for investigation of transfusion reactionOrdered By: Rochelle Fuller on 45-89-7364Froxgkavakn observation Gram stain Nom (Unsp spec)[facility] CenterLactate [Moles/volume] in Serum or PlasmaOrdered By: Ron Cardenas on 25-68-0885Xalldzp [Moles/Vol]2.0 mmol/L0.5-2.2FSelect Medical Specialty Hospital - CantonCompontiac general hospital on above:Critical Result : Called to and read back by: SHELBY BRUCE at: 09/16/2023 20:50:40 by:DCManual body fluid eosinophils/100 leukocytesOrdered By: Rochelle Fuller on 09-03-9733Xoxvigzbbdc/100 WBC Manual cnt (Body fld)0 /100{WBC}0-3FSelect Medical Specialty Hospital - CantonManual body fluid erythrocytes count (number/volume)Ordered By: Rochelle Fuller on 77-55-2832UQG Manual cnt (Body fld) [#/Vol]10 /uLMetrohealth Main Campus Medical CenterCompontiac general hospital on above:The reference interval and other method performance specifications have not been established for this body fluid. The test result must be integrated into the clinical context for interpretation.Manual body fluid lymphocytes/100 leukocytesOrdered By: Rochelle Fuller on 95-87-4098Mzkwcukjlht/100 WBC Manual cnt (Body fld)5 %[facility] CenterCompontiac general hospital on above:The reference interval and other method performance specifications have not been established for this body fluid. The test result must be integrated into the clinical context for interpretation.Neutrophils/100 WBC Manual cnt (Body fld)Ordered By: Rochelle Fuller on 92-70-1847Xmehzeyfyzx/100 WBC (Body fld)25 %[facility] CenterCompontiac general hospital on above:The reference interval and other method performance specifications have not been established for this body fluid. The test result must be integrated into the clinical context for interpretation.No Panel InformationOrdered By: Rochelle Fuller on 39-76-9343Azid Fluid Total Nucleated Cells67 /uLMetrohealth Main Campus Medical CenterComment on above:The reference interval and other method performance specifications have not been established for this body fluid. The test result must be integrated into the clinical context for interpretation.Thyrotropin [Units/volume] in Serum or PlasmaOrdered By: Ron Cardenas on 70-98-8659TFQ Qn1.27 m[IU]/L0.45-5.33 [facility] CenterThyroxine (T4) free [Mass/volume] in Serum or PlasmaOrdered By: Ron Cardenas on 78-76-4578Mifa T4 [Mass/Vol]0.86 ng/dL 0.61-1.12[facility] CenterTroponin I.cardiac [Mass/volume] in Serum or Plasma by Detection limit <= 0.01 ng/Ordered By: Ron Cardenas on 05-09-3270Jisfywav I.cardiac DL <= 0.01 ng/mL [Mass/Vol]70.4 pg/mL0.0-20.0 [facility] CenterComment on above:Critical Result : Called to and read back by: OSWALDO WHEELER at: 09/16/2023 15:25 by:DCBasophils Auto (Bld) [#/Vol]Ordered By: Jimenez Rodríguez on 88-50-6538Tmqyctuzx (Bld) [#/Vol]0.1 10*3/uL0.0-0.2FSelect Medical Specialty Hospital - CantonBasophils/100 WBC Auto (Bld) Ordered By: Jimenez Rodríguez on 51-91-9967Oeouyyewd/100 WBC (Bld)0.4 %.[facility] CenterCalcium [Mass/volume] in Serum or PlasmaOrdered By: Jimenez Rodríguez on 89-60-0229Xtddezb [Mass/Vol]9.9 mg/dL8.6-10.3FSelect Medical Specialty Hospital - CantonCarbon dioxide, total [Moles/volume] in Serum or PlasmaOrdered By: Jimenez Rodríguez on 65-96-7309UE1 [Moles/Vol]25.1 mmol/L21.0-31.0[facility] CenterChloride [Moles/volume] in Serum or PlasmaOrdered By: Jimenez [place] 12-67-6355Wdgagcnw [Moles/Vol]100 mmol/Q31-094HxrtirrzdMetrohealth Main Campus Medical CenterCreatinine [Mass/volume] in Serum or PlasmaOrdered By: Jimenez [place] 68-15-1332Ompwxhqtcj [Mass/Vol]10.48 mg/dL0.70-1.30[facility] CenterEosinophils Auto (Bld) [#/Vol]Ordered By: [facility] on 07-78-6146Kjhqssbddvd (Bld) [#/Vol]0.0 10*3/uL0.0-0.45[facility] CenterEosinophils/100 WBC Auto (Bld)Ordered By: [facility] 92-23-5272Ttrklmpcljl/100 WBC (Bld)0.2 %.[facility] Erythrocyte distribution width Auto (RBC) [Ratio]Ordered By: Jimenez [place] 30-12-4352Eczcdkzsrpm distribution width (RBC) [Ratio]19.0 %12.0-14.8[facility] CenterGlucose [Mass/volume] in Serum or PlasmaOrdered By: Jimenez [place] 77-94-5510Crzqroh [Mass/Vol]117 mg/iP46-184IlzsvqwbzMetrohealth Main Campus Medical CenterComment on above:ADA recommended reference rangeRandom Glucose Reference Range is dependent on time and content of last meal. Glucose of more than 200 mg/dL in a nonstressed, ambulatory subject supports the diagnosisof Diabetes Mellitus.Hematocrit Auto (Bld) [Volume fraction]Ordered By: Jimenez [place] 89-49-9585Auluujkgvb (Bld) [Volume fraction]37.2 %38.8-50.0 [facility] CenterHemoglobin [Mass/volume] in BloodOrdered By: Jimenez [place] 21-18-9667Pxspjwitsc (Bld) [Mass/Vol]12.0 g/dL13.0-17.0 [facility] CenterLeukocytes [#/volume] corrected for nucleated erythrocytes in Blood by Automated counOrdered By: Jimenez [place] on 08-11-2023 WBC corrected for nucl RBC Auto (Bld) [#/Vol]13.5 10*3/uL4.1-10.5FSelect Medical Specialty Hospital - CantonLymphocytes Auto (Bld) [#/Vol]Ordered By: Jimenez [place] on 15-19-2223Zxmiuphssbp (Bld) [#/Vol]1.4 10*3/uL1.00-4.8[facility] CenterLymphocytes/100 WBC Auto (Bld)Ordered By: [facility] on 64-58-4574Xkrptdqqjys/100 WBC (Bld)10.1 %.[facility] HospitalH Auto (RBC) [Entitic mass]Ordered By: [facility] on 95-05-4426RXL (RBC) [Entitic mass]29.0 pg27.5-35.2FSelect Medical Specialty Hospital - CantonMCHC Auto (RBC) [Mass/Vol]Ordered By: Jimenez [place] on 99-31-7457IANW (RBC) [Mass/Vol]32.3 g/dL 32.5-35.6FSelect Medical Specialty Hospital - CantonMCV Auto (RBC) [Entitic vol]Ordered By: [facility] on 27-48-8386OBM (RBC) [Entitic vol]89.9 fL83.5-101[facility] CenterMonocytes Auto (Bld) [#/Vol]Ordered By: Jimenez [place] on 51-05-1225Hantefnko (Bld) [#/Vol]1.0 10*3/uL0.0-0.8[facility] CenterMonocytes/100 WBC Auto (Bld)Ordered By: [facility] on 08-11-2023 Monocytes/100 WBC (Bld)7.3 %.[facility] CenterNeutrophils Auto (Bld) [#/Vol]Ordered By: [facility] on 10-22-1674Pegvqwfoxsz (Bld) [#/Vol] 11.1 10*3/uL1.8-7.7FSelect Medical Specialty Hospital - CantonNeutrophils/100 WBC Auto (Bld)Ordered By: Jimenez [place] on 17-03-5392Aqmktfwceyz/100 WBC (Bld)82.0 %. [facility] CenterNo Panel InformationOrdered By: Jimenez Rodríguez on 67-70-4000Pryacwiba GFR (CKD-EPI)4.829 mL/MinMetrohealth Main Campus Medical CenterPharmacy Creatinine Clearance (Chem9.93[facility] Nucleated erythrocytes [Presence] in Blood by Automated countOrdered By: Jimenez Rodríguez on 02-77-5675Urzfpvram RBC Auto Ql (Bld)0.1 /100{WBC}0-0.5FSelect Medical Specialty Hospital - CantonPlatelet mean volume Auto (Bld) [Entitic vol]Ordered By: Jimenez HirschRodríguez on 32-45-0284Gavgpuzz mean volume (Bld) [Entitic vol]8.3 fL 6.6-10.1FSelect Medical Specialty Hospital - CantonPlatelets Auto (Bld) [#/Vol]Ordered By: Jimenez HirschRodríguez on 31-18-6670Ryszeuatq (Bld) [#/Vol]278 10*3/mT264-530BtnicrbziMetrohealth Main Campus Medical CenterPotassium [Moles/volume] in Serum or PlasmaOrdered By: Jimenez HirschRodríguez on 73-87-7507Whmhuuiit [Moles/Vol]4.5 mmol/L3.5-5.1FSelect Medical Specialty Hospital - CantonRBC Auto (Bld) [#/Vol]Ordered By: Jimenez [place] on 43-95-1299HLE (Bld) [#/Vol]4.14 10*6/uL3.90-5.60[facility] Hospitalerum or plasma anion gap determinationOrdered By: Jimenez HirschRodríguez on 77-65-2040Pthhd gap [Moles/Vol]15.4 mmol/L6.0-15.0[facility] Hospitalodium [Moles/volume] in Serum or PlasmaOrdered By: Jimenez Rodríguez 49-35-9155Eweaoz [Moles/Vol]136 mmol/U832-517XksmfyyeaMetrohealth Main Campus Medical Center Urea nitrogen [Mass/volume] in Serum or PlasmaOrdered By: Jimenez HirschRodríguez 64-46-3927Ocyp nitrogen [Mass/Vol]40 mg/dL7-25[facility] WBC Auto (Bld) [#/Vol]Ordered By: [facility] on 38-51-3893CSQ (Bld) [#/Vol] 13.5 10*3/uL4.1-10.5FSelect Medical Specialty Hospital - CantonCholesterol [Mass/volume] in Serum or PlasmaOrdered By: [facility] on 36-44-7312Tdwzolvakki [Mass/Vol] 225 mg/tS993-049EbuzskwlyMetrohealth Main Campus Medical CenterComment on above:Chol less than 200 mg/dl low riskChol 201-239 mg/dl borderline riskChol 240 mg/dl and greater high riskCholesterol in LDL Calc [Mass/Vol]Ordered By: [facility] on 25-50-0574Sroomyvvkaq in LDL [Mass/Vol]157 mg/dL0-100[facility] CenterComment on above:LDL ATP III CLASSIFICATIONLDL less than 100 mg/dL OptimalLDL 100-129 mg/dL Near or above gbxcdtwCIT649-396 mg/dL Borderline highLDL 160-189 mg/dL HighLDL greater than 189 mg/dL Very highCholesterol in VLDL Calc [Mass/Vol]Ordered By: [facility] on 80-53-0465Mhuvijhyhbt in VLDL [Mass/Vol]35 mg/dLKettering Memorial Hospitalerum or plasma high density lipoprotein (HDL) cholesterol measurementOrdered By: [facility] on 27-45-9829Lkmilyfyvng in HDL [Mass/Vol]32 mg/aE17-56ZvrfecjunMetrohealth Main Campus Medical CenterComment on above:HDL CHOL ATP-III CLASSIFICATION Cardiovascular RiskHDL > or equal to 60 mg/dL LOWHDL < 40 mg/dL HIGHSerum or plasma total cholesterol/high density lipoprotein (HDL) cholesterol mass ratOrdered By: [facility] on 86-49-6908Gfgbfzrfkeh.total/Cholesterol in HDL [Mass ratio]7.0 {ratio}<5.0[facility] Medical CenterTriglyceride [Mass/volume] in Serum or PlasmaOrdered By: [facility] on 31-88-6376Uvogvnykpowo [Mass/Vol]178 mg/dL0-149[facility] CenterComment on above:TRIG ATP III CLASSIFICATIONTRIG less than 150 mg/dL NormalTRIG 150-199 mg/dL Borderline highTRIG 200-500 mg/dL High TRIG greater than 500 mg/dL Very highStandard traceable to the Center for Disease Conrtrol and Prevention (CDC) test method. Activated partial thromboplastin time (aPTT) in platelet poor plasma by coagulation aOrdered By: Chuck Delong on 92-33-8897dUFX Coag (PPP) [Time]30.7 s 25.1-36.5FSelect Medical Specialty Hospital - CantonComment on above:A hematocrit value greater than 55% may lead to inaccurate results in coagulation testing. Patients having hematocrit values >55% require a special collection tube for coagulation studies. Please contact the laboratory at [phone] for redraw instructions. Automated erythrocytes count in urine sediment (number/area)Ordered By: Chuck Delong on 50-83-9214EJO Auto (Urine sed) [#/Area]None seen [HPF]0-4FSelect Medical Specialty Hospital - CantonAutomated leukocytes count in urine sediment (number/area)Ordered By: Chuck Delong on 63-33-0532QGD Auto (Urine sed) [#/Area] 0-1 [HPF]0-4FSelect Medical Specialty Hospital - CantonBasophils Auto (Bld) [#/Vol]Ordered By: Chuck Delong on 17-25-2349Snelvugbv (Bld) [#/Vol]0.1 10*3/uL0.0-0.2FSelect Medical Specialty Hospital - CantonBasophils/100 WBC Auto (Bld)Ordered By: Chuck Delong on 25-58-4565Zjdyljxdq/100 WBC (Bld)0.9 %.[facility] Bilirubin Test strip Ql (U)Ordered By: Chuck Delong on 41-79-4666Qzacmoxbp Ql (U) NegativeNegativeMetrohealth Main Campus Medical CenterCalcium [Mass/volume] in Serum or PlasmaOrdered By: Chuck Delong 78-98-9637Dfbykvr [Mass/Vol]9.7 mg/dL 8.6-10.3FSelect Medical Specialty Hospital - CantonCarbon dioxide, total [Moles/volume] in Serum or PlasmaOrdered By: Chuck Delong 95-12-2751IJ6 [Moles/Vol]27.6 mmol/L 21.0-31.0[facility] CenterChloride [Moles/volume] in Serum or PlasmaOrdered By: Chuck Delong on 27-81-3342Csqcivxa [Moles/Vol]103 mmol/L98-107 [facility] CenterColor Auto (U)Ordered By: Chuck Delong on 53-34-7998Laxzl (U)YellowYellowMetrohealth Main Campus Medical CenterCreatine kinase [Enzymatic activity/volume] in Serum or PlasmaOrdered By: Chuck Delong on 66-80-1268XS [Catalytic activity/Vol]38 U/B93-521QsjrsdbolMetrohealth Main Campus Medical CenterCreatinine (Bld) [Mass/Vol]Ordered By: Luis Vasquez on 70-04-0927Gddgzatdwv [Mass/Vol]10.9 mg/dL0.6-1.3FSelect Medical Specialty Hospital - CantonComment on above: ER/ESD physician is notified/shown all ISTAT results.Critical values may be confirmed by laboratorytesting ifdeemed necessary by ER attending doctor. Creatinine [Mass/volume] in Serum or PlasmaOrdered By: Chuck Delong on 08-09-2023 Creatinine [Mass/Vol]10.07 mg/dL0.70-1.30[facility] Eosinophils Auto (Bld) [#/Vol]Ordered By: Chuck Delong on 80-93-4300Wqwpivtscdb (Bld) [#/Vol]0.2 10*3/uL0.0-0.45[facility] CenterEosinophils/100 WBC Auto (Bld)Ordered By: Chuck Delong on 81-56-6299Csxxdtqstuz/100 WBC (Bld)2.3 %.[facility] CenterErythrocyte distribution width Auto (RBC) [Ratio]Ordered By: Chuck Delong on 41-26-8048Bnuhzzvrzer distribution width (RBC) [Ratio]18.0 %12.0-14.8[facility] CenterGlucose Glucometer (BldC) [Mass/Vol]Ordered By: Luis Vasquez on 66-74-0801Rpgdvwq [Mass/Vol]107 mg/dL [facility] CenterComment on above:Random Glucose Reference Range is dependent on time and content of last meal. Glucose of more than 200 mg/dL in a nonstressed, ambulatory subject supports the diagnosis of Diabetes Mellitus.Glucose [Mass/volume] in Serum or PlasmaOrdered By: Chuck Delong on 03-58-3788Nuesgpv [Mass/Vol]115 mg/dB20-728UhueiztqlMetrohealth Main Campus Medical Center Comment on above:ADA recommended reference rangeRandom Glucose Reference Range is dependent on time and content of last meal. Glucose of more than 200 mg/dL in a nonstressed, ambulatory subject supports the diagnosisof Diabetes Mellitus. Hematocrit Auto (Bld) [Volume fraction]Ordered By: Chuck Delong on 08-09-2023 Hematocrit (Bld) [Volume fraction]34.8 %38.8-50.0[facility] CenterHemoglobin [Mass/volume] in BloodOrdered By: Chuck Delong on 08-09-2023 Hemoglobin (Bld) [Mass/Vol]11.3 g/dL13.0-17.0[facility] INR in Platelet poor plasma by Coagulation assayOrdered By: Chuck Delong on 29-07-3087DQL Coag (PPP) [Relative time]1.1 {INR}[facility] CenterComment on above:INR Therapeutic Range A) Pre- and Peroperative OAT started two weeks before surgery. NOT HIP SURGERY: 1.5 - 2.5 HIP SURGERY: 2 - 3B) Primary and secondary prevention of venous THROMBOSIS: 2 - 3C) Active venous thrombosis, pulmonary embolismand prevention of recurrent venous thrombosis: 2 - 3D) Prevention of arterial thromboembolismincluding patients with mechanical heart valves: 3 - 4.5Ketones Auto test strip (U) [Mass/Vol]Ordered By: Chuck Delong on 87-09-5598Gvvgzob (U) [Mass/Vol]NegativeNegativeMetrohealth Main Campus Medical CenterLaboratory - UrinalysisOrdered By: Chuck Delong on 08-09-2023 Hyaline casts LM Ql (Urine sed)None seen [LPF]0-8[facility] CenterLeukocytes [#/volume] corrected for nucleated erythrocytes in Blood by Automated counOrdered By: Chukc Delong on 40-21-7519EKU corrected for nucl RBC Auto (Bld) [#/Vol]7.8 10*3/uL4.1-10.5FSelect Medical Specialty Hospital - Canton Lymphocytes Auto (Bld) [#/Vol]Ordered By: Chuck Delong on 86-68-8875Drflvzbsfxo (Bld) [#/Vol]0.9 10*3/uL1.00-4.8[facility] CenterLymphocytes/100 WBC Auto (Bld)Ordered By: Chuck Delong on 38-55-3273Zyxuxbpmpmc/100 WBC (Bld) 11.1 %.[facility] CenterMCH Auto (RBC) [Entitic mass]Ordered By: Chuck Delong on 92-01-6849SXD (RBC) [Entitic mass]29.4 pg27.5-35.2FSelect Medical Specialty Hospital - CantonMCHC Auto (RBC) [Mass/Vol]Ordered By: Chuck Delong on 20-28-1673EVLM (RBC) [Mass/Vol]32.5 g/dL32.5-35.6FSelect Medical Specialty Hospital - CantonMCV Auto (RBC) [Entitic vol]Ordered By: Chuck Delong on 71-62-3339UWP (RBC) [Entitic vol]90.5 fL83.5-101[facility] CenterMonocyte distribution width [Entitic volume] in Blood by AutomatedOrdered By: Chuck Delong on 07-48-7641Aagrswwl distribution width Auto (Bld) [Entitic vol]17.11 % 0.00-20.00[facility] CenterMonocytes Auto (Bld) [#/Vol]Ordered By: Chuck Delong on 79-00-8670Wmbeqikwa (Bld) [#/Vol]0.5 10*3/uL0.0-0.8[facility] CenterMonocytes/100 WBC Auto (Bld)Ordered By: Chuck Delong on 01-81-0244Ffguzkxlk/100 WBC (Bld)6.6 %.[facility] Neutrophils Auto (Bld) [#/Vol]Ordered By: Chuck Delong on 18-06-8450Spjlhygalbv (Bld) [#/Vol]6.2 10*3/uL1.8-7.7FSelect Medical Specialty Hospital - CantonNeutrophils/100 WBC Auto (Bld)Ordered By: Chuck Delong on 92-96-4902Wxcqmrajeob/100 WBC (Bld)79.1 %.[facility] CenterNitrite Test strip Ql (U)Ordered By: Chuck Delong on 45-36-6261Dgbuzov Ql (U)NegativeNegativeMetrohealth Main Campus Medical CenterNo Panel InformationOrdered By: Chuck Delong on 14-95-1066Jktweksyt GFR (CKD-EPI)5.066 mL/MinMetrohealth Main Campus Medical CenterPharmacy Creatinine Clearance (Chem9.80[facility] CenterNucleated erythrocytes [Presence] in Blood by Automated countOrdered By: Chuck Delong on 08-09-2023 Nucleated RBC Auto Ql (Bld)0.0 /100{WBC}0-0.5FSelect Medical Specialty Hospital - Canton Platelet mean volume Auto (Bld) [Entitic vol]Ordered By: Chuck Delong on 33-53-7539Xmxwxxek mean volume (Bld) [Entitic vol]7.7 fL6.6-10.1FSelect Medical Specialty Hospital - CantonPlatelets Auto (Bld) [#/Vol]Ordered By: Chuck Delong on 11-80-5685Vzvtfgaql (Bld) [#/Vol]214 10*3/fW512-060CvslfzhmpMetrohealth Main Campus Medical CenterPotassium [Moles/volume] in Serum or PlasmaOrdered By: Chuck Delong on 57-40-5721Pxbpftjhk [Moles/Vol]4.7 mmol/L3.5-5.1FSelect Medical Specialty Hospital - CantonProtein Auto test strip (U) [Mass/Vol]Ordered By: Chuck Delong on 00-96-6948Yfxeoks (U) [Mass/Vol]30 mg/dLNegativeMetrohealth Main Campus Medical CenterProthrombin time (PT)Ordered By: Chuck Delong on 05-34-8482BM Coag (PPP) [Time]12.6 s9.0-12.9[facility] CenterComment on above:A hematocrit value greater than 55% may lead to inaccurate results in coagulation testing. Patientshaving hematocrit values >55% require a special collection tube for coagulation studies. Please contact the laboratory at [phone] for redraw instructions.RBC Auto (Bld) [#/Vol]Ordered By: Chuck Delong on 08-09-2023 RBC (Bld) [#/Vol]3.85 10*6/uL3.90-5.60[facility] Hospitalerum or plasma anion gap determinationOrdered By: Chuck Delong on 95-84-4036Owcwr gap [Moles/Vol]13.1 mmol/L6.0-15.0[facility] Hospitalodium [Moles/volume] in Serum or PlasmaOrdered By: Chuck Delong on 86-16-0049Ewzhps [Moles/Vol]139 mmol/B549-867XegeaxuuwKettering Memorial Hospitalpecific gravity Auto test strip (U) [Rel density]Ordered By: Chuck Delong on 04-34-4827Feonuzsf gravity (U) [Rel density]1.0101.001-1.030[facility] Squamous epithelial cells detection in urine sediment by light microscopyOrdered By: Chuck Delong on 38-34-0781Pyppgvfgqn cells.squamous LM Ql (Urine sed)None seen [HPF]0-2FSelect Medical Specialty Hospital - CantonTroponin I.cardiac [Mass/volume] in Serum or Plasma by Detection limit <= 0.01 ng/Ordered By: Chuck Delong 20-70-7658Qrjjnqek I.cardiac DL <= 0.01 ng/mL [Mass/Vol]26.2 pg/mL0.0-20.0 [facility] CenterUrea nitrogen [Mass/volume] in Serum or Plasma Ordered By: Chuck Delong 69-37-5117Agzi nitrogen [Mass/Vol]31 mg/dL7-25 [facility] CenterUrine bacteria detection by automated method Ordered By: Chuck Delong on 28-51-8000Pvmujtae Auto Ql (U)None seenNone Seen [facility] CenterUrine clarity by refractometry automatedOrdered By: Chuck Delong 11-26-0808Eldrhwl Refractometry automated (U)ClearClear [facility] CenterUrine glucose measurement by automated test strip (mass/volume)Ordered By: Chuck Delong 21-08-0351Lanpxma Auto test strip (U) [Mass/Vol]Normal mg/dLNormalMetrohealth Main Campus Medical CenterUrine hemoglobin detection by automated test stripOrdered By: Chuck Delong on 59-15-6174Lcggsujeth Auto test strip Ql (U)NegativeNegativeMetrohealth Main Campus Medical CenterUrine leukocyte esterase detection by automated test stripOrdered By: Chuck Delong on 71-35-2690Mryzjcwcj esterase Auto test strip Ql (U)Negative NegativeMetrohealth Main Campus Medical CenterUrobilinogen Auto test strip (U) [Mass/Vol]Ordered By: Chuck Delong on 22-17-0350Vqgdniyuchww (U) [Mass/Vol]Normal mg/dLNormalMetrohealth Main Campus Medical CenterWBC Auto (Bld) [#/Vol]Ordered By: Chuck Delong on 75-85-8115IJF (Bld) [#/Vol]7.8 10*3/uL4.1-10.5FSelect Medical Specialty Hospital - CantonpH Auto test strip (U)Ordered By: Chuck Delong on 78-92-2888oC (U) 8.5 [pH]5.0-9.0[facility] CenterCalcium [Mass/volume] in Serum or PlasmaOrdered By: Ai Vasquez on 93-64-0859Gzobvhj [Mass/Vol]8.6 mg/dL 8.6-10.3FSelect Medical Specialty Hospital - CantonCarbon dioxide, total [Moles/volume] in Serum or PlasmaOrdered By: Ai Vasquez on 88-49-2732TL8 [Moles/Vol]28.4 mmol/L 21.0-31.0[facility] CenterChloride [Moles/volume] in Serum or PlasmaOrdered By: Ai Vasquez on 23-80-6020Oeuynqyg [Moles/Vol]104 mmol/L98-107 [facility] CenterCreatinine [Mass/volume] in Serum or Plasma Ordered By: Ai Vasquez on 32-38-5649Giqugaebet [Mass/Vol]9.22 mg/dL0.70-1.30 [facility] CenterGlucose [Mass/volume] in Serum or PlasmaOrdered By: Ai Vasquez on 67-55-6284Foguyke [Mass/Vol]101 mg/kZ56-198SbbxfbvvbMetrohealth Main Campus Medical CenterComment on above:ADA recommended reference rangeRandom Glucose Reference Range is dependent on time and content of last meal. Glucose of more than 200 mg/dL in a nonstressed, ambulatory subject supports the diagnosisof Diabetes Mellitus.Magnesium [Mass/volume] in Serum or PlasmaOrdered By: Ai Vasquez on 69-57-8133Tzocwlhzp [Mass/Vol]1.6 mg/dL1.9-2.7FSelect Medical Specialty Hospital - CantonNo Panel InformationOrdered By: Ai Vasquez on 06-10-2023 Estimated GFR (CKD-EPI)5.631 mL/MinMetrohealth Main Campus Medical CenterPharmacy Creatinine Clearance (Chem11.03[facility] CenterPhosphate [Mass/volume] in Serum or PlasmaOrdered By: Louann Reynolds on 06-10-2023 Phosphate [Mass/Vol]3.8 mg/dL3.7-7.2FSelect Medical Specialty Hospital - CantonPotassium [Moles/volume] in Serum or PlasmaOrdered By: Ai Vasquez on 57-05-5657Puuugszau [Moles/Vol]3.4 mmol/L3.5-5.1FUniversity Hospitals Portage Medical Centererum or plasma anion gap determinationOrdered By: Ai Vasquez on 69-25-9732Vavtf gap [Moles/Vol]12.0 mmol/L6.0-15.0[facility] Hospitalodium [Moles/volume] in Serum or PlasmaOrdered By: Ai Vasquez on 58-21-1268Gkmcxy [Moles/Vol]141 mmol/P957-876IjwvxlaciMetrohealth Main Campus Medical CenterTroponin I.cardiac [Mass/volume] in Serum or Plasma by Detection limit <= 0.01 ng/Ordered By: Louann Reynolds on 08-08-3059Pknuryyb I.cardiac DL <= 0.01 ng/mL [Mass/Vol]41.4 pg/mL 0.0-20.0[facility] CenterUrea nitrogen [Mass/volume] in Serum or PlasmaOrdered By: Ai Vasquez on 73-79-5863Gsjt nitrogen [Mass/Vol]31 mg/dL7 [facility] CenterAlanine aminotransferase [Enzymatic activity/volume] in Serum or PlasmaOrdered By: Ai Vasquez on 63-79-6457VTO [Catalytic activity/Vol]23 U/L752[facility] CenterAlbumin [Mass/volume] in Serum or Plasma by Bromocresol green (BCG) dye binding metho Ordered By: Ai Vasquez on 35-67-4656Jpdopvl BCG dye [Mass/Vol]2.9 g/dL3.5-5.7 [facility] CenterAlkaline phosphatase [Enzymatic activity/volume] in Serum or PlasmaOrdered By: Ai Vasquez on 45-21-6854BKK [Catalytic activity/Vol]66 U/D36-165XabxsxbfmMetrohealth Main Campus Medical CenterAspartate aminotransferase [Enzymatic activity/volume] in Serum or PlasmaOrdered By: Ai Vasquez on 84-30-1983OUR [Catalytic activity/Vol]18 U/Q36-01IighvrqinMetrohealth Main Campus Medical CenterBilirubin.total [Mass/volume] in Serum or PlasmaOrdered By: Ai Vasquez on 65-99-7362Cdpannogo [Mass/Vol]0.4 mg/dL0.3-1.0[facility] CenterGlobulin Calc (S) [Mass/Vol]Ordered By: Ai Vasquez on 06-09-2023 Globulin (S) [Mass/Vol]4.4 g/dLMetrohealth Main Campus Medical CenterProtein [Mass/volume] in Serum or PlasmaOrdered By: Ai Vasquez on 46-86-9849Kmcryew [Mass/Vol]7.3 g/dL6.4-8.9[facility] Hospitalerum or plasma albumin/globulin mass ratioOrdered By: Ai Vasquez on 19-83-9555Twzhxql/Globulin [Mass ratio]0.7 {ratio}[facility] CenterBasophils Auto (Bld) [#/Vol]Ordered By: Luis Mujica on 74-73-9953Pxmviruet (Bld) [#/Vol]0.0 10*3/uL 0.0-0.2FSelect Medical Specialty Hospital - CantonBasophils/100 WBC Auto (Bld)Ordered By: Luis Mujica on 55-98-2689Zjvaqinzi/100 WBC (Bld)1.0 %.[facility] CenterCreatinine and Glomerular filtration rate.predicted panel (S/P/Bld)Ordered By: Luis Mujica on 81-76-2563Kdbnbxcbqn [Mass/Vol]9.09 mg/dL0.64-1.27[facility] CenterEosinophils Auto (Bld) [#/Vol]Ordered By: Luis Mujica on 19-75-9486Qqanksuvhvi (Bld) [#/Vol]0.2 10*3/uL0.0-0.45[facility] CenterEosinophils/100 WBC Auto (Bld)Ordered By: Luis Mujica on 09-29-2022 Eosinophils/100 WBC (Bld)4.3 %.[facility] CenterErythrocyte distribution width Auto (RBC) [Ratio]Ordered By: Luis Mujica on 09-29-2022 Erythrocyte distribution width (RBC) [Ratio]15.3 %12.0-14.8[facility] CenterEstimated glomerular filtration rate (GFR) non- Ordered By: Luis Mujica on 20-84-6246TGT/1.73 sq M.predicted among non-blacks MDRD (S/P/Bld) [Vol rate/Area]6 mL/MinMetrohealth Main Campus Medical Center Hematocrit Auto (Bld) [Volume fraction]Ordered By: Luis Mujica on 09-29-2022 Hematocrit (Bld) [Volume fraction]25.7 %38.8-50.0[facility] CenterHemoglobin [Mass/volume] in BloodOrdered By: Luis Mujica on 09-29-2022 Hemoglobin (Bld) [Mass/Vol]8.2 g/dL13.0-17.0[facility] Leukocytes [#/volume] corrected for nucleated erythrocytes in Blood by Automated counOrdered By: Luis Mujica on 71-59-6705EWJ corrected for nucl RBC Auto (Bld) [#/Vol]4.8 10*3/uL4.1-10.5FSelect Medical Specialty Hospital - CantonLymphocytes Auto (Bld) [#/Vol]Ordered By: Luis Mujica on 26-80-0020Uvkywathzxp (Bld) [#/Vol]0.9 10*3/uL1.00-4.8[facility] CenterLymphocytes/100 WBC Auto (Bld) Ordered By: Luis Mujica on 62-49-1794Sxyxyxflylh/100 WBC (Bld)19.6 %.[facility] CenterMCH Auto (RBC) [Entitic mass]Ordered By: Luis Mujica on 60-57-8980ICN (RBC) [Entitic mass]28.9 pg27.5-35.2FSelect Medical Specialty Hospital - CantonMCHC Auto (RBC) [Mass/Vol]Ordered By: Luis Mujica on 53-54-1928RQYL (RBC) [Mass/Vol]32.0 g/dL32.5-35.6FSelect Medical Specialty Hospital - CantonMCV Auto (RBC) [Entitic vol]Ordered By: Luis Mujica on 24-14-9323BNG (RBC) [Entitic vol]90.2 fL 83.5-101[facility] CenterMonocytes Auto (Bld) [#/Vol]Ordered By: Luis Mujica on 07-12-7304Pcmjndtxh (Bld) [#/Vol]0.4 10*3/uL0.0-0.8[facility] CenterMonocytes/100 WBC Auto (Bld)Ordered By: Luis Mujica on 31-68-7333Nrxqeocig/100 WBC (Bld)8.9 %.[facility] Neutrophils Auto (Bld) [#/Vol]Ordered By: Luis Mujica on 08-80-3401Bqfqksuutof (Bld) [#/Vol]3.2 10*3/uL1.8-7.7FSelect Medical Specialty Hospital - CantonNeutrophils/100 WBC Auto (Bld)Ordered By: Luis Mujica on 52-47-7718Lwzobowklsd/100 WBC (Bld)66.2 %.[facility] CenterNo Panel InformationOrdered By: Luis Mujica on 32-32-6776Xoduqzpyl GFR ()7 mL/MinMetrohealth Main Campus Medical CenterComment on above:GFR estimated reference range: According to KDOQI guidelines, <60 ml/min/1.73m2 is sufficient todiagnose a patient with chronic kidney disease.Pharmacy Creatinine Clearance (Chem11.49[facility] CenterNucleated erythrocytes [Presence] in Blood by Automated count Ordered By: Luis Mujica on 19-47-3031Ibdqmrwhq RBC Auto Ql (Bld)0.2 /100{WBC} 0-0.5FSelect Medical Specialty Hospital - CantonPlatelet mean volume Auto (Bld) [Entitic vol]Ordered By: Luis Mujica on 81-00-8752Dwbuwaia mean volume (Bld) [Entitic vol] 8.6 fL6.6-10.1FSelect Medical Specialty Hospital - CantonPlatelets Auto (Bld) [#/Vol] Ordered By: Luis Mujica on 47-64-4268Dqhagpfxa (Bld) [#/Vol]185 10*3/rP697-774 [facility] CenterRBC Auto (Bld) [#/Vol]Ordered By: Luis Mujica on 22-64-3408FHC (Bld) [#/Vol]2.85 10*6/uL3.90-5.60[facility] Hospitalerum or plasma anion gap determinationOrdered By: Luis Mujica on 75-60-3412Fnxte gap [Moles/Vol]18.7 mmol/L6.0-15.0[facility] Hospitalerum or plasma calcium measurement (mass/volume)Ordered By: Luis Mujica on 21-01-7227Adltqzv [Mass/Vol]8.8 mg/dL8.2-10.2FSelect Medical Specialty Hospital - Canton Serum or plasma chloride measurement (moles/volume)Ordered By: Luis Mujica on 70-74-1165Cadjefgi [Moles/Vol]109 mmol/H43-086LxrqtwffuMetrohealth Main Campus Medical Center Serum or plasma glucose measurement (mass/volume)Ordered By: Luis Mujica on 35-61-5946Tmtdeup [Mass/Vol]92 mg/dJ18-315HbosbvadvMetrohealth Main Campus Medical Center Comment on above:ADA recommended reference rangeRandom Glucose Reference Range is dependent on time and content of last meal. Glucose of more than 200 mg/dL in a nonstressed, ambulatory subject supports the diagnosisof Diabetes Mellitus. Serum or plasma potassium measurement (moles/volume)Ordered By: Luis Mujica on 74-34-1766Kihlpqrbp [Moles/Vol]5.8 mmol/L3.5-5.1FUniversity Hospitals Portage Medical Centererum or plasma sodium measurement (moles/volume)Ordered By: Luis Mujica on 87-19-5207Pbarxb [Moles/Vol]139 mmol/V540-024VobkjbvjrMetrohealth Main Campus Medical Center Serum or plasma total carbon dioxide measurement (moles/volume)Ordered By: Luis Mujica on 66-78-1391JA3 [Moles/Vol]17.1 mmol/L22.0-30.0[facility] Hospitalerum or plasma urea nitrogen measurement (mass/volume)Ordered By: Luis Sil on 90-79-9168Coum nitrogen [Mass/Vol]90 mg/dL9-23[facility] CenterWBC Auto (Bld) [#/Vol]Ordered By: Luis Sil on 08-01-1226MTK (Bld) [#/Vol]4.8 10*3/uL4.1-10.5FSelect Medical Specialty Hospital - CantonBasophils Auto (Bld) [#/Vol]Ordered By: Yordan Mora on 44-79-2552Edruhzmjq (Bld) [#/Vol]0.1 10*3/uL0.0-0.2FSelect Medical Specialty Hospital - CantonBasophils/100 WBC Auto (Bld) Ordered By: Yordan Mora on 50-28-5543Bahzftbnn/100 WBC (Bld)1.0 %.[facility] CenterCOVID-19 SOFIAOrdered By: Yordan Mora on 09-27-2022 SARS-CoV+SARS-CoV-2 (COVID-19) Ag [place].rapid Ql (Resp)NegativeNegativeMetrohealth Main Campus Medical CenterComment on above:This is a duplicate Arlet SARS Antigen (BEV) result to be used for statistical tracking purpose only.Creatinine and Glomerular filtration rate.predicted panel (S/P/Bld)Ordered By: Yordan Mora on 15-29-4030Avchneztck [Mass/Vol]9.24 mg/dL0.64-1.27[facility] Medical CenterEosinophils Auto (Bld) [#/Vol]Ordered By: Yordan Mora on 09-27-2022 Eosinophils (Bld) [#/Vol]0.2 10*3/uL0.0-0.45[facility] Eosinophils/100 WBC Auto (Bld)Ordered By: Yordan Mora on 09-27-2022 Eosinophils/100 WBC (Bld)4.1 %.[facility] Medical CenterErythrocyte distribution width Auto (RBC) [Ratio]Ordered By: Yordan Mora on 09-27-2022 Erythrocyte distribution width (RBC) [Ratio]14.9 %12.0-14.8[facility] Medical CenterEstimated glomerular filtration rate (GFR) non- Ordered By: Yordan Mora on 14-72-3978ZFB/1.73 sq M.predicted among non-blacks MDRD (S/P/Bld) [Vol rate/Area]6 mL/MinMetrohealth Main Campus Medical Center Hematocrit Auto (Bld) [Volume fraction]Ordered By: Yordan Mora on 09-27-2022 Hematocrit (Bld) [Volume fraction]27.3 %38.8-50.0[facility] Medical CenterHemoglobin [Mass/volume] in BloodOrdered By: Yordan Mora on 09-27-2022 Hemoglobin (Bld) [Mass/Vol]8.9 g/dL13.0-17.0[facility] Hepatitis B virus surface Ag [Presence] in Serum or Plasma by ImmunoassayOrdered By: Reece Rodriguez on 76-82-7501LJX surface Ag IA QlNegativeNegativeMetrohealth Main Campus Medical CenterLeukocytes [#/volume] corrected for nucleated erythrocytes in Blood by Automated counOrdered By: Yordan Mora on 09-27-2022 WBC corrected for nucl RBC Auto (Bld) [#/Vol]5.1 10*3/uL4.1-10.5FSelect Medical Specialty Hospital - CantonLymphocytes Auto (Bld) [#/Vol]Ordered By: Yordan Mora on 62-92-6264Fyssvsvncqt (Bld) [#/Vol]0.9 10*3/uL1.00-4.8[facility] Medical CenterLymphocytes/100 WBC Auto (Bld)Ordered By: Yordan Mora on 00-50-1563Dtgsdojnrxb/100 WBC (Bld)17.6 %.[facility] Auto (RBC) [Entitic mass]Ordered By: Yordan Mora on 47-69-1201XXG (RBC) [Entitic mass]29.1 pg27.5-35.2FWhite HospitalHC Auto (RBC) [Mass/Vol]Ordered By: Yordan Mora on 77-50-0831SATN (RBC) [Mass/Vol]32.5 g/dL 32.5-35.6FSelect Medical Specialty Hospital - CantonMCV Auto (RBC) [Entitic vol]Ordered By: Yordan Mora on 78-90-9663DOG (RBC) [Entitic vol]89.7 fL83.5-101[facility] Medical CenterMonocytes Auto (Bld) [#/Vol]Ordered By: Yordan Mora on 48-95-8480Aasshwyuo (Bld) [#/Vol]0.5 10*3/uL0.0-0.8[facility] Medical CenterMonocytes/100 WBC Auto (Bld)Ordered By: Yordan Mora on 09-27-2022 Monocytes/100 WBC (Bld)9.6 %.[facility] Medical CenterNeutrophils Auto (Bld) [#/Vol]Ordered By: Yordan Mora on 48-52-6430Qfbigwrzyup (Bld) [#/Vol]3.5 10*3/uL1.8-7.7FSelect Medical Specialty Hospital - CantonNeutrophils/100 WBC Auto (Bld) Ordered By: Yordan Mora on 21-58-2829Obkiwuejzrd/100 WBC (Bld)67.7 %.[facility] CenterNo Panel InformationOrdered By: Yordan Mora on 15-16-7256Marsppzeo GFR ()7 mL/MinMetrohealth Main Campus Medical CenterComment on above:GFR estimated reference range: According to KDOQI guidelines, <60 ml/min/1.73m2 is sufficient todiagnose a patient with chronic kidney disease.Pharmacy Creatinine Clearance (ChemN/[facility] HospitalARS Antigen (LFIA)[facility] CenterNo Panel Information Ordered By: Reece Rodriguez on 52-92-8979Vrruqxaca B Core Total AntibodyNegative NegativeMetrohealth Main Campus Medical CenterComment on above:Performed at: - Lab[address] [id number] Director: Chino Griffin PhD, Phone: [phone] erythrocytes [Presence] in Blood by Automated countOrdered By: Yordan Mora on 77-85-4284Omudkatfs RBC Auto Ql (Bld)0.2 /100{WBC}0-0.5FSelect Medical Specialty Hospital - CantonPlatelet mean volume Auto (Bld) [Entitic vol]Ordered By: Yordan Mora on 80-14-3430Wodwiodz mean volume (Bld) [Entitic vol]9.0 fL6.6-10.1FSelect Medical Specialty Hospital - Canton Platelets Auto (Bld) [#/Vol]Ordered By: Yordan Mora on 68-09-9889Mhxcawyed (Bld) [#/Vol]199 10*3/aV977-154CwxmlpoqkMetrohealth Main Campus Medical CenterRBC Auto (Bld) [#/Vol]Ordered By: Yordan Mora on 67-79-0392ASZ (Bld) [#/Vol]3.05 10*6/uL 3.90-5.60[facility]tering Memorial Hospitalerum hepatitis B virus surface antibody detectionOrdered By: Reece Rodriguez on 09-97-7454SRM surface Ab Ql (S) Non-Reactive.[facility] Medical CenterComment on above:Non Reactive: Inconsistent with immunity, less than 10 mIU/mL Reactive: Consistent with immunity, greater than 9.9 mIU/mLSerum or plasma anion gap determinationOrdered By: Yordan Mora on 39-59-0380Rhryt gap [Moles/Vol]16.6 mmol/L6.0-15.0[facility] Hospitalerum or plasma calcium measurement (mass/volume)Ordered By: Yordan Mora on 34-82-1593Ksaflav [Mass/Vol]9.0 mg/dL8.2-10.2FUniversity Hospitals Portage Medical Centererum or plasma chloride measurement (moles/volume) Ordered By: Yordan Mora on 84-15-3859Ztyuboxg [Moles/Vol]109 mmol/L95-114 [facility] Hospitalerum or plasma glucose measurement (mass/volume)Ordered By: Yordan Mora on 97-51-8944Pwglsan [Mass/Vol]95 mg/dL 70-100[facility] Medical CenterComment on above:ADA recommended reference rangeRandom Glucose Reference Range is dependent on time and content of last meal. Glucose of more than 200 mg/dL in a nonstressed, ambulatory subject supports the diagnosisof Diabetes Mellitus.Serum or plasma potassium measurement (moles/volume)Ordered By: Yordan Mora on 16-39-2561Mtvvjqrxk [Moles/Vol]5.3 mmol/L3.5-5.1FUniversity Hospitals Portage Medical Centererum or plasma sodium measurement (moles/volume)Ordered By: Yordan Mora on 49-68-4661Zmjdbe [Moles/Vol]139 mmol/E349-116VvtdjeootKettering Memorial Hospitalerum or plasma total carbon dioxide measurement (moles/volume)Ordered By: Yordan Mora on 61-58-6854ZC3 [Moles/Vol]18.7 mmol/L22.0-30.0[facility] Serum or plasma urea nitrogen measurement (mass/volume)Ordered By: Yordan Mora on 31-87-2208Bfku nitrogen [Mass/Vol]87 mg/dL9-23[facility] Medical CenterWBC Auto (Bld) [#/Vol]Ordered By: Yordan Mora on 85-82-7715IZF (Bld) [#/Vol]5.1 10*3/uL4.1-10.5FSelect Medical Specialty Hospital - CantonPTH INTACTon 87-59-7426CQG, Fgzpfy68 pg/mLCritically qten35-21Zaf [facility] HospitalComment on above:Performed By: #### CBC ####[facility] [address]fr[address] [place] [id number] KarenCBC AUTO DIFFon 68-24-9704Bywldrvsp Auto #/vol (Bld)0.1 103/ulNormal0.0-0.1The [facility] HospitalComment on above: Performed By: #### CBC ####[facility] Zhiuqfruwn8[address] [place], [place] [address]Qiliwv KarenBasophils/100 WBC Auto (Bld)0.9 %Normal 0.2-2.0The [facility] HospitalComment on above:Performed By: #### CBC ####[facility] Xyopcusvjg7[address] [place], [place] [address]Tqhojq Jesscia Eosinophils Auto #/vol (Bld)0.2 103/ulNormal0.0-0.7The [facility] HospitalComment on above:Performed By: #### CBC ####[facility] Xjpzgob[address] [place] [address] KarenEosinophils/100 WBC Auto (Bld)3.1 %Normal 0.9-7.0The [facility] HospitalComment on above:Performed By: #### CBC ####[facility] Qudumryxoo[address] [place] [address] Jessica Erythrocyte distribution width Auto Ratio (RBC)14.2 %Kxshir32.0-15.0The [facility] HospitalComment on above:Performed By: #### CBC ####[facility] Qcucjokioa[address] [place] [address] KarenHematocrit Auto Volume Fraction (Bld)34.7 %Critically low42.0-54.0The [facility] HospitalComment on above:Performed By: #### CBC ####[facility] Dykdmjgzkc[address] [place] [address] KarenHemoglobin mass conc (Bld)11.6 g/dL Critically low14.0-18.0The [facility] HospitalComment on above:Performed By: #### CBC ####[facility] Jofagxaqsx[address] [place] [address] KarenIG #0.02 10e3/ulNormal0.00-0.03The [facility] HospitalComment on above:Performed By: #### CBC ####[facility] Jllfotkjiu[address] [place] [address] KarenIG %0.3 %Normal0.0-0.5The [facility] HospitalComment on above:Performed By: #### CBC ####[facility] Xwcvlqnqmj6[address] [place] [address] KarenLymphocytes Auto #/vol (Bld)1.0 103/ulCritically low1.2-3.8The [facility] HospitalComment on above: Performed By: #### CBC ####[facility] Baicweadvs[address] [place] [address] KarenLymphocytes/100 WBC Auto (Bld)17.5 % Critically low20.5-60.0The [facility] HospitalComment on above:Performed By: #### CBC ####[facility] Gzakecngm[address] [place] [address] KarenMANUAL DIFF REQNONormalThe [facility] HospitalComment on above: Performed By: #### CBC ####[facility] Awlrgiiivg[address] [place] [address] Auto Entitic mass (RBC)28.9 pgNormal 25.9-34.0The [facility] HospitalComment on above:Performed By: #### CBC ####[facility] Wqol[address]gs[address] [place] [address] Auto mass conc (RBC)33.4 g/hOHhlngo39.9-35.2The [facility] Comment on above:Performed By: #### CBC ####[facility] Taqgaynstz[address] [place], [place] [address]V Auto Entitic volume (RBC) 86.5 tUAzygdb04.0-94.0The [facility] HospitalComment on above:Performed By: #### CBC ####[facility] Vmjqdkumhb[address] [place] [address] KarenMonocytes Auto #/vol (Bld)0.3 103/ulNormal0.3-0.8The [facility] HospitalComment on above:Performed By: #### CBC ####[facility] Coxnryotff[address] [place] [address] KarenMonocytes/100 WBC Auto (Bld)5.5 %Normal1.7-12.0The [facility] HospitalComment on above:Performed By: #### CBC ####[facility] Wspwfyexdk[address] [place] [address] KarenNeutrophils Auto #/vol (Bld)4.2 103/ulNormal1.4-6.5The [facility] HospitalComment on above:Performed By: #### CBC ####[facility] Dnmrmdthwh[address] [place] [address] KarenNeutrophils/100 WBC Auto (Bld)72.7 %Xnfwqy12.0-75.0The [facility] on above: Performed By: #### CBC ####[facility] [address]zxqqmzqsc[address] [place] [address] KarenPlatelet mean volume Auto Entitic volume (Bld)10.4 fLNormal9.5-13.5The [facility] on above:Performed By: #### CBC ####[facility] Qssvontynr[address] [place] [address] KarenPlatelets Auto #/vol (Bld)193 103/izImhyol494-657Eix [facility] on above:Performed By: #### CBC ####[facility] Eaiovpbzzz[address] [place] [address] KarenRBC Auto #/vol (Bld)4.01 106/ulCritically low4.70-6.10The [facility] on above: Performed By: #### CBC ####[facility] Mtuqtunjbe[address] [place] [address] KarenWBC Auto #/vol (Bld)5.8 103/ulNormal 4.0-11.0The [facility] on above:Performed By: #### CBC ####[facility] Suzozlwlbp[address] [place] [address] KarenFERRITINon 77-29-4163Pvlgijmm [Mass/volume] in Serum or Fosvho112.0 ng/mL Gzxsfi75.9-464.0The [facility] on above:Performed By: #### CBC ####[facility] Kccscenume[address] [place] [address] KarenLAB TESTINGon 79-14-0934NMJH HEADERSEE SCANNED REPORT IN [facility]ITALNoTrinity Health Systeme [facility] on above:Performed By: #### CBC ####[facility] Hlygjivotu[address] [place] [address] KarenREV FROM REF LAB 09/04/2018[facility] Hospitalment on above:Performed By: #### CBC ####[facility] Wusilbmdkr9996 [address] KyleenSENT TO REF LAB09/03/2018[facility] on above: Performed By: #### CBC ####[facility] Fumllorewf4660 [address] KarenUA RANDOM W/MICROSCOPICon 09-03-2018 BACTERIANONE SEENNormalNONE SEENUpper Valley Medical CenterComment on above:Performed By: #### UAMIC ####[facility] Yrciumvnjh0174 [address] KarenBILIRUBINNegativeNormalNEGATIVEOhiohealth Grove City Methodist Hospital on above:Performed By: #### UAMIC ####[facility] Dmyyfgenrr0301 [address] KarenBLOODSMALLNormalNEGATIVECity Hospital on above:Performed By: #### UAMIC ####[facility] Qoelbakpvh4937 [address] KarenCASTNONE SEEN NormalNONE [facility] CenterCompontiac general hospital on above:Performed By: #### UAMIC ####[facility] Lwmjkblwce4864 [address] KarenCLARITYCLEARUniversity Hospitals Portage Medical CenterComment on above:Performed By: #### UAMIC ####[facility] Wxtgfobncm4875 [address] KarenCOLORLT. YELLOWNormalYELLOWUpper Valley Medical CenterComment on above:Performed By: #### UAMIC ####[facility] Rlghvrlfyl3889 [address] KarenCRYSTALSNONE SEENNormalNONE [facility] CenterCompontiac general hospital on above:Performed By: #### UAMIC ####[facility] Atoypuwjyc8996 [address] KarenEPITHELIAL CELLS RARENormalThe Melrose HospitalComment on above:Performed By: #### UAMIC ####[facility] [address]qnebzmrv[address] [place] [phone] KarenGLUCOSENegativeNormalNEGATIVEUpper Valley Medical CenterComment on above: Performed By: #### UAMIC ####[facility] Ulvbgazhxd[address] [place] [phone] KarenKETONESNegativeNormalNEGATIVEWestern Reserve Hospital HospitalComment on above:Performed By: #### UAMIC ####[facility] Agoiktdivp5327 [address] KarenLEUKOCYTES NegativeNormalNEGATIVEUpper Valley Medical CenterComment on above:Performed By: #### UAMIC ####[facility] Mjzzwrzknh7646 [address] KarenMUCOUSNONE SEENNormalNONE SEENUpper Valley Medical CenterComment on above:Performed By: #### UAMIC ####[facility] Jeavctdpjc8155 [address] KarenNITRITENegativeNormalNEGATIVEUpper Valley Medical CenterComment on above:Performed By: #### UAMIC ####[facility] Zrleobxmaa3743 [address] KarenpH5.3Wrdpvt6-9EujSCCI Hospital Limament on above:Performed By: #### UAMIC ####[facility] Fivxqfvhhf6908 [address] KarenPROTEIN 100 mg/dlNormalThe [facility] HospitalComment on above:Performed By: #### UAMIC ####[facility] Xlticxuinq6802 [address] KarenRBC Test strip #/vol (U)1-4Kahzfb7-8YlbCity Hospital on above: Performed By: #### UAMIC ####[facility] Pkkauylndh3008 [address] KarenSPEC GRAVITY1.526Xdpkfb0.005-<=1.025The [facility] Ohioment on above:Performed By: #### UAMIC ####[facility] Wutfdbfpgp[address] [place] [phone] KarenUROBILINOGEN0.2 EU/dlNoChillicothe VA Medical CenterComment on above:Performed By: #### UAMIC ####[facility] Curqxlcncr6902 [place] [phone] KarenWBCNONE SEENNormalNONE SEENUpper Valley Medical CenterComment on above:Performed By: #### UAMIC ####[facility] [address]fzphxe[address] [place], [place] [phone] KarenURINE T PROTEIN CREAT RATIOon 19-22-9658Cwfhhzo mass conc 2.50 g/dLUniversity Hospitals Portage Medical CenterCompontiac general hospital on above:Performed By: #### CBC ####[facility] [address]raipvjcn[address] [place] [address] KarenProtein mass kewu911.0 mg/dLCritically high<=12.0[facility] Comment on above:Performed By: #### CBC ####[facility] Cfpdvxyprt[address] [place] [address] KarenURINE CREAT86.10 mg/dLNormal 20.00-300.00Upper Valley Medical CenterCompontiac general hospital on above:Performed By: #### CBC ####[facility] Muaszctbbs[address] [place] [address] KarenVITAMIN D 25 OHon 42-46-8282XMD D 25-OH14.3 ng/mLNormalUpper Valley Medical CenterCompontiac general hospital on above:Performed By: #### CBC ####[facility] [address] [place] [address] KarenVIT D RANGESSEE BELOWUniversity Hospitals Portage Medical CenterComment on above:Result Comment: <20 ng/mL Vit D deficient 20 - <30 ng/mL Vit D insufficient 30 - 100 ng/mL Vit D sufficient >100 ng/mL Potential ToxicityPerformed By: #### CBC ####[facility] Okscjzkxwo[address] [place] [address] KarenVITDHPLEASE NOTE: NORMAL RANGE CHANGE 06-27-2013, TESTING PERFORMED AT [facility].NormalThe [facility] HospitalComment on above:Performed By: #### CBC ####[facility] Kvakygitgc[address] [place] [address] KarenPROF CHEM 8 (BAS METB)on 02-05-6667Wvsmk gap 3 molar conc18.3 mmol/LNormalUpper Valley Medical Center Comment on above:Performed By: #### BMP ####[facility] Maclfrsqsh[address] [place] [address] KarenCalcium mass conc8.9 mg/dLNormal 8.4-10.2Upper [facility] Medical CenterComment on above:Performed By: #### BMP ####[facility] Qhlhnfnxcb[address] [place] [address] KarenChloride molar xeuy826 mmol/WTqcclr72-074PpmUpper Valley Medical CenterComment on above:Performed By: #### BMP ####[facility] Ppgnjavdro[address] [place] [address] KarenCO2 molar conc17.1 mmol/LCritically low 22.0-30.0[facility] Medical CenterComment on above:Performed By: #### BMP ####[facility] Bkqvyyznux[address] [place] [address] KarenCreatinine mass conc3.44 mg/dLCritically high0.66-1.25The [facility] Comment on above:Performed By: #### BMP ####[facility] Zhiugkahjx[address] [place] [address] KarenEGFR-AF CNLPLHVJ30 mL/min/1.73m2 Critically low>=60Upper [facility] Medical CenterComment on above:Performed By: #### BMP ####[facility] Ixoulpoccj[address] [place] [address] KarenEGFR-NON AF QRUZOBDK15 mL/min/1.41z8Hqbihmrmcb low>=60[facility] Comment on above:Performed By: #### BMP ####[facility] Fvfotwuzov[address] [place] [address] KarenGlucose mass conc99 mg/dLNormal 74-106The [facility] HospitalComment on above:Performed By: #### BMP ####[facility] Uzxasofjxa18[address] [place], [place] [address]Eqyfhb Jessica Potassium molar conc5.4 mmol/LCritically high3.4-5.0The [facility] HospitalComment on above:Performed By: #### BMP ####[facility] Jjzebkrhrg57[address] [place], [place] [address]Wujhwq KarenSodium molar vepn764 mmol/LCritically low 137-145The [facility] HospitalComment on above:Performed By: #### BMP ####[facility] Vkscmqvczj4571 [place], [place] [address]Ixyhjo KarenUrea nitrogen mass conc56.0 mg/dLCritically high9.0-20.0The [facility] HospitalComment on above:Performed By: #### BMP ####[facility] Kpfgrooxjj4[address] [place], [place] [address]Zpivum KarenUrea nitrogen/Creatinine mass ratio16.3 mg/mgNormalThe [facility] HospitalComment on above:Performed By: #### BMP ####[facility] Gqzxfurndv26[address] [place], [place] [address]Ppatdi KarenCT ABD/PELVIS WO CONon 94-25-4703LP ABD/PELVIS WO ESD8168 [place] [address] Patient: LUIS CHONG Exam Date: 12/2017DOB: 1955 Gender:M : DR PLACIDO HOUSTON . Admission #: [id number] :DR ANGEL LUIS SANCHES . Order #: [id number] HERE TO VIEW EXAM RADIOLOGY REPORT PROCEDURE: CT ABDOMEN AND PELVIS WITHOUT CONTRAST COMPARISON: None. INDICATIONS: Acute right flank pain, hematuria TECHNIQUE: Axial, Coronal, and Sagittal CT images of the abdomen and pelvis were created without IV contrast material.DOSE: 2626 mGycm FINDINGS: KIDNEY - RIGHT: Multiple cortical hypo and hyperdensities, indeterminate. No hydronephrosis orURETER - RIGHT: No calcifications or abnormal dilation. KIDNEY - LEFT: Multiple cortical hypo and hyper densities, some of which are indeterminate. No hydronephrosis or obstructing nephrolithiasisURETER - LEFT: No calcifications or abnormal dilation. URINARY BLADDER: No calculus, visible focal wall thickening, or lesion. LUNG BASES: No visible pulmonary or pleural disease. LIVER: No enlargement, atrophy, abnormal density, or significant focal lesion. BILIARY:No visible dilatation or calcification. PANCREAS: Calcification in the pancreatic head, indeterminateSPLEEN: No enlargement or focal lesion. ADRENALS: No mass or enlargement. BOWEL/MESENTERY: Moderate colonic diverticulosis. Nonobstructive bowel gas pattern.AORTA/VASCULAR: No aneurysm. RETROPERITONEUM: No mass or adenopathy. LYMPH NODES: No adenopathy. PELVIC ORGANS: Enlarged heterogeneous prostateABDOMINAL WALL: 7.1 x 5.2 cm right inguinal hernia , containing mesenteric fat as well as an area of soft tissue and fluid attenuationBONES: Degenerative spondylosisOTHER: Report provided at 6:55 p.m. CONCLUSION: 1. Right inguinal hernia containing fat, soft tissue and fluid attenuation, bowel loop versus anterior urinary bladder2. Multiple bilateral renal hyperdensities, indeterminate Dictated by: Isael Snowden M.D. on 06/25/2018 at 21:31 Approved by: Isael Snowden M.D. on 06/25/2018 at 21:37[facility] URINE PROFILEon 82-90-7558YIJYCKCRVUlsfrpsnEdcelkPHOEEYQDSta Bellevue HospitalComment on above:Performed By: #### AMARJIT BREAUXRO ####[facility] [address] [place] [address]Gerken KarenBLOODTRACE-LYSEDNormalNEGATIVEUpper Valley Medical CenterComment on above:Performed By: #### GENO BREAUXICRO ####[facility] [address]ravfrrhxt[address] [place] [address]Gerken KarenCLARITY CLEARNoChillicothe VA Medical CenterCompontiac general hospital on above:Performed By: #### AMARJIT BREAUXRO ####[facility] [address]qljqebih[address] [place] [address]Gerken KarenCOLORLT. YELLOWNormalYELLOWUpper Valley Medical CenterComment on above:Performed By: #### AMARJIT BREAUXRO ####[facility] [address]qyanyunef[address] [place] [phone] KarenERUAHDA micrscopic examination will be performed if indicated.NormalThe Melrose HospitalComment on above:Performed By: #### LUZ ELENA BREAUX ####[facility] Qkbxvbcuvr59[address] [place] [phone] KarenGLUCOSENegativeNormalNEGATIVEWestern Reserve Hospital HospitalComment on above:Performed By: #### LUZ ELENA BREAUX ####[facility] Augidpusev[address] [place] [phone] KarenKETONESNegative NormalNEGATIVEThe [facility] HospitalComment on above:Performed By: #### LUZ ELENA BREAUX ####[facility] Mmnmpfcj[address] [place] [address]Ktidzx KarenLEUKOCYTESNegativeNormalNEGATIVEWestern Reserve Hospital HospitalComment on above:Performed By: #### LUZ ELENA BRAEUX ####[facility] Edloadwccy[address] [place], [place] [address]Gerken KarenNITRITENegativeNormalNEGATIVEThe [facility] HospitalComment on above:Performed By: #### LUZ ELENA BREAUX ####[facility] Mdmnieusex[address] [place], [place] [address]Gerken KarenpH6.0 Normal5-9Upper Valley Medical CenterComment on above:Performed By: #### AMARJIT BREAUXRO ####[facility] Omgpjpokrd364[address] [place] [address]Gerken KarenProtein mass foxn676 mg/dlNormSelect Medical OhioHealth Rehabilitation HospitalComment on above: Performed By: #### GENO BREAUXICRO ####[facility] Vcydzctprr9002 [address] KarenSPEC GRAVITY1.779Mvaxff0.005-<=1.025The [facility] HospitalComment on above:Performed By: #### AMARJIT BREAUXRO ####[facility] Yelofdavgr[address] [place], [place] [address]Gerken KarenUR MICRO INDINDICATEDNoNewark Hospital on above:Performed By: #### SAEID UMICRO ####[facility] Vxhvjsrwsn8120 [place], [place] [address]Dfznix KarenUROBILINOGEN0.2 EU/dlNoChillicothe VA Medical CenterCompontiac general hospital on above:Performed By: #### SAEID UMICRO ####[facility] Lrqagqmzuj11[address] [place] [phone] KarenURINE MICROSCOPIC ONLYon 06-25-2018 BACTERIANONE SEENNormalNONE SEENCity Hospital on above:Performed By: #### SAEID UMICRO ####[facility] Nacshjtgmj6868 [address] KarenCASTNONE SEENNormalNONE [facility] on above:Performed By: #### SAEID UMICRO ####[facility] N[address] [place] [address] KarenCRYSTALSNONE SEEN NormalNONE [facility] CenterCompont[facility] hospital on above:Performed By: #### SAEID UMICRO ####[facility] Ctaswarxro[address] [place] [address] KarenCULTURENOT INDICATEDUniversity Hospitals Portage Medical CenterCompontiac general hospital on above:Performed By: #### SAEID UMICRO ####[facility] Sihlugjwxz[address] [place] [address] KarenEPITHELIAL CELLSRARENormalUpper Valley Medical CenterCompontiac general hospital on above:Performed By: #### SAEID UMICRO ####[facility] Cupjiglczr6824 [address] KarenINR Coag RelTime (Bld)NONE SEENNormal0-2[facility] on above:Performed By: #### SAEID UMICRO ####[facility] Nqbimzzqmm1505 [place] [phone] KarenMUCOUSNONE SEENNormalNONE [facility] CenterCompont[facility] hospital on above:Performed By: #### LUZ ELENA BREAUX ####[facility] Aufjccphpk3609 [place], [place]Gerken KarenWBC0-2NormalNONE SEENThe [facility] HospitalComment on above:Performed By: #### LUZ ELENA BREAUX ####[facility] Usgdnphwdy[address] [place], [place] [address]Gerken KarenCBC AUTO DIFFon 04-72-4754Uglqhmual Auto #/vol (Bld)0.1 103/ulNormal0.0-0.1The [facility] Comment on above:Performed By: #### CBC ####[facility] Kkawharuze[address] [place], [place] [address]Gerken KarenBasophils/100 WBC Auto (Bld)1.3 %Normal0.2-2.0The [facility] HospitalComment on above:Performed By: #### CBC ####[facility] Ulpmpmyapc[address] [place] [address] KarenEosinophils Auto #/vol (Bld)0.2 103/ulNormal0.0-0.7The [facility] Comment on above:Performed By: #### CBC ####[facility] Kkvemtfekw[address] [place], [place] [address]Gerken KarenEosinophils/100 WBC Auto (Bld) 4.2 %Normal0.9-7.0The [facility] HospitalComment on above:Performed By: #### CBC ####[facility] Quwfihycuo[address] [place], [place] [phone] KarenErythrocyte distribution width Auto Ratio (RBC)15.5 %Critically high 11.0-15.0The [facility] HospitalComment on above:Performed By: #### CBC ####[facility] Rwvokpupny[address] [place] [address] KarenHematocrit Auto Volume Fraction (Bld)35.9 %Critically low42.0-54.0The [facility] HospitalComment on above:Performed By: #### CBC ####[facility] Nfyoetrtte[address] [place] [address] KarenHemoglobin mass conc (Bld)11.4 g/dLCritically low14.0-18.0The [facility] HospitalComment on above: Performed By: #### CBC ####[facility] Bmhwtkwdgv[address] [place] [address] KarenIG #0.01 10e3/ulNormal0.00-0.03The [facility] HospitalComment on above:Performed By: #### CBC ####[facility] Qyqxvyekdy[address] [place] [address] KarenIG %0.2 %Normal 0.0-0.5The [facility] HospitalComment on above:Performed By: #### CBC ####[facility] Jtdahrjezp[address] [place] [address] Jessica Lymphocytes Auto #/vol (Bld)1.2 103/ulNormal1.2-3.8The [facility] HospitalComment on above:Performed By: #### CBC ####[facility] Hyssirorpf4[address] [place] [address] KarenLymphocytes/100 WBC Auto (Bld)21.1 %Normal 20.5-60.0The [facility] HospitalComment on above:Performed By: #### CBC ####[facility] Jtmrqbegbn[address] [place] [address] KarenMANUAL DIFF REQNONormalThe [facility] HospitalComment on above:Performed By: #### CBC ####[facility] Foosegffrn[address] [place] [address] Auto Entitic mass (RBC)28.1 cnRgdsdm17.9-34.0The [facility] HospitalComment on above:Performed By: #### CBC ####[facility] Izzepucwse[address] [place] [address] Auto mass conc (RBC)31.8 g/yNZlrcsr60.9-35.2The [facility] HospitalComment on above: Performed By: #### CBC ####[facility] Ybrizqqghq3032 West Main StreetBellevue, [place] [address]Hzgztj KarenMCV Auto Entitic volume (RBC)88.6 fLNormal 80.0-94.0The [facility] HospitalComment on above:Performed By: #### CBC ####[facility] Dsflanqtft[address] [place] [address] KarenMonocytes Auto #/vol (Bld)0.4 103/ulNormal0.3-0.8The [facility] Comment on above:Performed By: #### CBC ####[facility] Hdpfpkrunm[address] [place] [address] KarenMonocytes/100 WBC Auto (Bld)7.4 %Normal1.7-12.0The [facility] HospitalComment on above:Performed By: #### CBC ####[facility] Mwgvikbsxx[address] [place] [address] KarenNeutrophils Auto #/vol (Bld)3.6 103/ulNormal1.4-6.5The [facility] Comment on above:Performed By: #### CBC ####[facility] Dovnlcvzvh[address] [place] [address] KarenNeutrophils/100 WBC Auto (Bld) 65.8 %Yyolgt82.0-75.0The [facility] HospitalComment on above:Performed By: #### CBC ####[facility] Mbjtmpfoca[address] [place] [address] KarenPlatelet mean volume Auto Entitic volume (Bld)11.3 fLNormal 9.5-13.5The [facility] HospitalComment on above:Performed By: #### CBC ####[facility] Hnxxqlbwwk[address] [place] [address] KarenPlatelets Auto #/vol (Bld)248 103/mgFhjdll518-409Bby [facility] Comment on above:Performed By: #### CBC ####[facility] Tgwbbotsyu01[address] [place] [address] KarenRBC Auto #/vol (Bld)4.05 106/ul Critically low4.70-6.10The [facility] HospitalComment on above:Performed By: #### CBC ####[facility] Uluissvfte19[address] [place] [phone] KarenWBC Auto #/vol (Bld)5.4 103/ulNormal4.0-11.0The [facility] on above:Performed By: #### CBC ####[facility] Xqsesyebnl[address] [place], [place] [address]Gerken KarenLIVER PROFILEon 23-22-2025Lfiiqkp mass conc3.9 g/dLNormal3.5-5.0The [facility] on above:Performed By: #### LIVER, BMP ####[facility] Tcqrhidplb[address] [place] [address] KarenAlbumin/Globulin mass ratio0.9 {ratio}NormalThe [facility] on above:Performed By: #### LIVER, BMP ####[facility] Fkbqoqykbj[address] [place] [address] KarenALP enzyme act/vfx427 U/SApmshb58-494Swp [facility] on above:Performed By: #### LIVER, BMP ####[facility] Shkrwdhkkm[address] [place], [place] [address]Gerken KarenALT enzyme act/vol28 U/LOxtlrz18-32 The [facility] on above:Performed By: #### LIVER, BMP ####[facility] Kjxprwmwwn[address] [place], [place] [address]Gerken KarenAST enzyme act/vol28 U/NAxyvxo79-95Vpw [facility] on above:Performed By: #### LIVER, BMP ####[facility] Tipwfegofs6359 [address] KarenBILI, CONJUGATED0.0 mg/dLNormal0.0-0.3The [facility] on above:Performed By: #### LIVER, BMP ####[facility] Qgqekayqcr[address] [place] [address] Jessica Bilirubin Ql (U)0.5 mg/dLNormal0.2-1.3The [facility] HospitalComment on above: Performed By: #### LIVER, BMP ####[facility] Foazslvzsl2371 [address] KarenGlobulin Calculated mass conc (S)4.6 g/dL NormalThe [facility] HospitalComment on above:Performed By: #### LIVER, BMP ####[facility] Wcxajxrdhd[address]11 [address] KarenProtein mass conc8.6 g/dLCritically high6.1-8.2The [facility] HospitalComment on above:Performed By: #### LIVER, BMP ####[facility] Hubrfydapp[address] [place] [address] KarenPROF CHEM 8 (BAS METB)on 29-26-2927Fgwum gap 3 molar conc17.1 mmol/LNormalThe [facility] HospitalComment on above:Performed By: #### LIVER, BMP ####[facility] Osrwdeekax[address] [place] [address] KarenCalcium mass conc9.5 mg/dLNormal 8.4-10.2The [facility] HospitalComment on above:Performed By: #### LIVER, BMP ####[facility] Jqrbwujlrq[address] [place] [address] KarenChloride molar agho615 mmol/JQoihdz25-188Kzd [facility] HospitalComment on above:Performed By: #### LIVER, BMP ####[facility] K[address]jbywivt[address] [place] [address] KarenCO2 molar conc21.0 mmol/LCritically low22.0-30.0The [facility] HospitalComment on above:Performed By: #### LIVER, BMP ####[facility] Bmuixuveda[address] [place] [address] KarenCreatinine mass conc2.39 mg/dLCritically high0.66-1.25The [facility] Comment on above:Performed By: #### LIVER, BMP ####[facility] Tomjvzaopt[address] [place] [address] KarenEGFR-AF GEORGIAN 33 mL/min/1.34z8Ayjbuikidt low>=60The [facility] HospitalComment on above: Performed By: #### LIVER, BMP ####[facility] Bhqjuisofp[address] [place] [phone] KarenEGFR-NON AF WPOMTDUH20 mL/min/1.73m2 Critically low>=60The [facility] HospitalComment on above:Performed By: #### LIVER, BMP ####[facility] Cesekubycu23[address] [place] [phone] KarenGlucose mass conc87 mg/bDDnqonm05-997Dyz [facility] Comment on above:Performed By: #### LIVER, BMP ####[facility] Rvgmdirdqa1813 [place] [phone] KarenPotassium molar conc4.5 mmol/LNormal3.4-5.0The [facility] HospitalComment on above:Performed By: #### LIVER, BMP ####[facility] Xclslylikg3043 [place] [address]Gerken KarenSodium molar paps630 mmol/NEwjahf657-942Rdq [facility] HospitalComment on above:Performed By: #### LIVER, BMP ####[facility] Pklkcgacfz3127 [place] [phone] KarenUrea nitrogen mass conc46.0 mg/dLCritically high9.0-20.0The [facility] HospitalComment on above: Performed By: #### LIVER, BMP ####[facility] Txaqmthtxk033[address] [place] [address]Gerken KarenUrea nitrogen/Creatinine mass ratio19.1 mg/mgNormalThe [facility] HospitalComment on above:Performed By: #### LIVER, BMP ####[facility] Pntaziqhks3594 [place] [phone] KarenXR RIBS BI/PA CHEST 4V OR >on 67-21-6069VG RIBS BI/PA CHEST 4V OR >14[address] [place] [address] Patient: LUIS CHONG Exam Date: 11/28/2017DOB: 1955 Gender:M : DR ANGEL LUIS SANCHES . Admission #: [id number] : Order #: [id number] HERE TO VIEW EXAM RADIOLOGY REPORT PROCEDURE: RADIOGRAPH RIBS BILATERAL AND PA CHEST MIN 4 VIEWS COMPARISON: None. INDICATIONS: Acute right anterior lower rib pain for one week from coughing. No known injury. FINDINGS: LUNGS: No significant pulmonary parenchymal abnormalities. PLEURA: No pneumothorax, effusion, or pleural thickening.MEDIASTINUM: No visible mass or adenopathy.CARDIAC: No cardiomegaly or cardiac silhouette abnormality. RIBS: No fracture or visible bon e lesion. OTHER: Negative. CONCLUSION: 1. Low lung volume examination. No acute cardiopulmonary process.2. No rib fracture. Dictated by: Christina Hudson M.D. on 11/28/2017 at 14:56 Approved by: Christina Hudson M.D. on 11/28/2017 at 15:27Normal [facility] Vital Signs Date TimeVital SignValuePerforming DicehtfdkCswrmbok22-26-0650 09:48-0400Body xsrqse259.42 cmAngel Luis Sanches MD Work Phone: [phone])[address]10-30-2025 09:48-0400 Body mass index (BMI) [Ratio]39.8 kg/m2Angel Luis Sanches MD Work Phone: [phone])96624 [address]10-30-2025 09:48-0400 Body sqefnmkppng57.5 [degF]Angel Luis Sanches MD Work Phone: [phone])06824 [address]10-30-2025 09:48-0400 Body .98 kgAngel Luis Sanches MD Work Phone: 1(368)14124 [address]10-30-2025 09:48-0400 Diastolic blood piauphyn86 mm[Hg]Angel Luis Sanches MD Work Phone: 1(013)02724 [address]10-30-2025 09:48-0400 Heart rate82 /minAngel Luis Sanches MD Work Phone: 1(585)66924 [address]10-30-2025 09:48-0400 Respiratory rate16 /minAngel Luis Sanches MD Work Phone: 1(251)20124 [address]10-30-2025 09:48-0400 SaO2% (BldA) [Mass fraction]98 %Angel Luis Sanches MD Work Phone: [phone])90824 [address]10-30-2025 09:48-0400 Systolic blood qdjuaneu158 mm[Hg]Angel Luis Sanches MD Work Phone: [phone])[address] [place], [place] 8354810-07-2025 13:13-0400 Body vzwkrkbelyw03 [degF]Angel Luis Sanches MD Work Phone: [phone])[address] [place], [place] 8354810-07-2025 13:13-0400 Diastolic blood cywtvgcb73 mm[Hg]Angel Luis Sanches MD Work Phone: 1(217)[address] [place], [place] 8354810-07-2025 13:13-0400 Heart rate57 /minAngel Luis Sanches MD Work Phone: [phone])[address] [place], [place] 8354810-07-2025 13:13-0400 Respiratory rate18 /minAngel Luis Sanches MD Work Phone: [phone] [place], [place] 8354810-07-2025 13:13-0400 SaO2% (BldA) [Mass fraction]96 %Angel Luis Sanches MD Work Phone: 1(311)[address] [place], [place] 8354810-07-2025 13:13-0400 Systolic blood hgukqtuc884 mm[Hg]Angel Luis Sanches MD Work Phone: [phone])[address] [place], [place] 8354810-07-2025 05:56-0400 Body .5 kgAngel Luis Sanches MD Work Phone: [phone])[address] [place], [place] 8354810-06-2025 13:27-0400 Body pwlzys269.42 cmAngel Luis Sanches MD Work Phone: [phone])[address] [place], [place] 8354810-02-2025 07:00-0400 Inhaled oxygen flow rate2 L/minAngel Luis Sanches MD Work Phone: [phone] [place], [place] 8354807-30-2024 12:51-0400 Diastolic blood cjxhdnei65 mm[Hg]MD Angel Luis Sanches Work Phone: 1([phone])36824 [address]07-30-2024 12:51-0400 Heart rate81 /minMD Angel Luis Sanches Work Phone: 1(901)[address]07-30-2024 12:51-0400 Respiratory rate20 /minMD Angel Luis Sanches Work Phone: [phone])[address] [place], [place] 8354807-30-2024 12:51-0400 SaO2% (BldA) [Mass fraction]97 %MD Angel Luis Sanches Work Phone: [phone])[address] [place], [place] 8354807-30-2024 12:51-0400 Systolic blood yjcxzdzp776 mm[Hg]MD Angel Luis Sanches Work Phone: 1([phone] [place], [place] 8354807-30-2024 08:13-0400 Body waheje243.1 kgMD Angel Luis Sanches Work Phone: [phone] [place], [place] 8354807-30-2024 07:54-0400 Body .1 [degF]MD Angel Luis Sanches Work Phone: 1(148)[address]07-29-2024 15:24-0400 Body glqget745.42 cmMD Angel Luis Sanches Work Phone: 1(003)[address]07-28-2024 07:47-0400 Body nuvqbhevvqz28 [degF]MD Angel Luis Sanches Work Phone: [phone])52724 [address]07-28-2024 07:47-0400 Diastolic blood lyllepew47 mm[Hg]MD Angel Luis Sanches Work Phone: 1([phone])20324 [address]07-28-2024 07:47-0400 Heart rate72 /minMD Angel Luis Sanches Work Phone: [phone])05324 [address]07-28-2024 07:47-0400 Respiratory rate18 /minMD Angel Luis Sanches Work Phone: [facility]07-28-2024 07:47-0400 SaO2% (BldA) [Mass fraction]95 %MD Angel Luis Sanches Work Phone: [facility]07-28-2024 07:47-0400 Systolic blood gmvpexjo126 mm[Hg]MD Angel Luis Sanches Work Phone: [phone])83224 [address]07-27-2024 22:11-0400 Body zkokkl761.42 cmMD Angel Luis Sanches Work Phone: [phone])7[address]07-27-2024 22:11-0400 Body ffwdbi973.26 kgMD Angel Luis Sanches Work Phone: [phone])98124 [address]02-07-2024 10:48-0500 Body regwha168.4 cmAngel Luis Sanches MD Work Phone: [facility]wsiadhbwr56-72-6716 10:48-0500Body mass index (BMI) [Ratio]39.05 kg/m2Angel Luis Sanches MD Work Phone: [facility] HospitalPpdysbiync48-63-9044 10:48-0500Body temperature 97.5 [degF]Angel Luis Sanches MD Work Phone: [facility] HospitalIlojwoowbp37-17-9062 10:48-0500Body qvndet908.26 kgAngel Luis Sanches MD Work Phone: [facility] HospitalOmxbtvmtjv92-65-7524 10:48-0500Diastolic blood jhztenbz52 mm[Hg]Angel Luis Sanches MD Work Phone: [facility] HospitalAfnwjvnflf05-74-0766 10:48-0500Heart nxjk474 /min Angel Luis Sanches MD Work Phone: [facility] HospitalHrhwhjlkag70-77-1821 10:48-6154ZxI7% (BldA) [Mass fraction]98 %Angel Luis Sanches MD Work Phone: [facility] HospitalKrdioguays13-27-2499 10:48-0500Systolic blood meebyvia882 mm[Hg]Angel Luis Sanches MD Work Phone: [facility] HospitalGrfskytamv78-01-2230 11:06-0500Body afsult638.[address] [place], [place] 9612301-12-2024 11:06-0500Body mass index (BMI) [Ratio] 37.21 kg/m2Pfo [address] [place], [place] 9612301-12-2024 11:06-0500Body temperature 98.71 [degF]Pfo [address] [place], [place] 9612301-12-2024 11:06-0500Body noshnf156.[address] [place], [place] 9612301-12-2024 11:06-0500Diastolic blood febowagi10 mm[Hg]Pfo [address] [place], [place] 9612301-12-2024 11:06-0500Heart rate96 /minPfo 1 [facility]01-12-2024 11:06-0500Respiratory rate18 /minPfo 1 [facility]01-12-2024 11:06-2728FsF9% (BldA) [Mass fraction]98 %Pfo [address] [place], [place] 9612301-12-2024 11:06-0500Systolic blood rhrrgdyv868 mm[Hg] Pfo [address] [place], [place] 9612301-09-2024 11:30-0500Body ukctwf365.4 cmPfo 1 [facility]01-09-2024 11:30-0500Body mass index (BMI) [Ratio]37.48 kg/m2Pfo [address] [place], [place] 9612301-09-2024 11:30-0500Body rlajrgofeqk93.6 [degF]Pfo [address] [place], [place] 9612301-09-2024 11:30-0500Body qkssqe385.82 kgPfo 1 [facility]01-09-2024 11:30-0500Diastolic blood wqxaxrvf77 mm[Hg]Pfo [address] [place], [place] 9612301-09-2024 11:30-0500Heart rate91 /minPfo [address] [place], [place] 9612301-09-2024 11:30-0500Respiratory rate18 /minPfo [address] [place], [place] 9612301-09-2024 11:30-0500Systolic blood thocxrrs713 mm[Hg]Pfo [address] [place], [place] 9612301-05-2024 11:03-0500Body jtwbdu735.[address] [place], [place] 9612301-05-2024 11:03-0500Body mass index (BMI) [Ratio]36.29 kg/m2Pfo 1 [facility]01-05-2024 11:03-0500Body .29 [degF]Pfo 1 [facility]01-05-2024 11:03-0500Body qopqrd424.[address] [place], [place] 9612301-05-2024 11:03-0500Diastolic blood wuhmvunf02 mm[Hg]Pfo 1 [facility]01-05-2024 11:03-0500Heart yuuu233 /minPfo [address] [place], [place] 9612301-05-2024 11:03-0500Respiratory rate20 /minPfo [address] [place], [place] 9612301-05-2024 11:03-8467GsL1% (BldA) [Mass fraction]99 %Pfo [address] [place], [place] 9612301-05-2024 11:03-0500Systolic blood yvasjcdu924 mm[Hg]Pfo [address] [place], [place] 9612301-02-2024 11:05-0500Body jaxnvz175.[address] [place], [place] 9612301-02-2024 11:05-0500Body mass index (BMI) [Ratio]36.82 kg/m2Pfo 1 [facility]01-02-2024 11:05-0500Body nljqjxzezts07.49 [degF]Pfo 1 [facility]01-02-2024 11:05-0500Body ciowzz092.[address] [place], [place] 9612301-02-2024 11:05-0500Diastolic blood mffkyrjm28 mm[Hg]Pfo 1 [facility]01-02-2024 11:05-0500Heart iavi604 /minPfo [address] [place], [place] 9612301-02-2024 11:05-0500Respiratory rate20 /minPfo [address] [place], [place] 9612301-02-2024 11:05-1321IrM5% (BldA) [Mass fraction]98 %Pfo [address] [place], [place] 9612301-02-2024 11:05-0500Systolic blood hbljugcm491 mm[Hg]Pfo [address] [place], [place] 9612312-29-2023 10:58-0500Body coaxdx744.[address] [place], [place] 9612312-29-2023 10:58-0500Body mass index (BMI) [Ratio]37.74 kg/m2Pfo 1 [facility]12-29-2023 10:58-0500Body tytbljnupnl04.2 [degF]Pfo 1 [facility]12-29-2023 10:58-0500Body qsdzge573.[address] [place], [place] 9612312-29-2023 10:58-0500Diastolic blood mm[Hg]Pfo 1 [facility]12-29-2023 10:58-0500Heart rate92 /minPfo [address] [place], [place] 9612312-29-2023 10:58-0500Respiratory rate20 /minPfo [address] [place], [place] 9612312-29-2023 10:58-3964OzE7% (BldA) [Mass fraction]100 %Pfo [address] [place], [place] 9612312-29-2023 10:58-0500Systolic blood sildnukv903 mm[Hg]Pfo 1 [facility]12-26-2023 11:04-0500Body aiapnj534.[address] [place], [place] 9612312-26-2023 11:04-0500Body mass index (BMI) [Ratio]37.19 kg/m2Pfo 1 [facility]12-26-2023 11:04-0500Body qtkdbxucual57.4 [degF]Pfo 1 [facility] [facility] 11:04-0500Body bqrxef719.[address] [place], [place] 9612312-26-2023 11:04-0500Diastolic blood nbcwyyhi51 mm[Hg]Pfo 1 [facility]12-26-2023 11:04-0500Heart rate95 /minPfo [address] [place], [place] 9612312-26-2023 11:04-0500Respiratory rate24 /minPfo [address] [place], [place] 9612312-26-2023 11:04-1194LpP1% (BldA) [Mass fraction]99 %Pfo [address] [place], [place] 9612312-26-2023 11:04-0500Systolic blood eaxivkys993 mm[Hg]Pfo [address] [place], [place] 9612312-22-2023 11:13-0500Body qlljbu753.[address] [place], [place] 9612312-22-2023 11:13-0500Body mass index (BMI) [Ratio]36.95 kg/m2Pfo 1 [facility]12-22-2023 11:13-0500Body aaiwyrxesej91.9 [degF]Pfo 1 [facility]12-22-2023 11:13-0500Body wrymqq981.[address] [place], [place] 9612312-22-2023 11:13-0500Diastolic blood mm[Hg]Pfo 1 [facility]12-22-2023 11:13-0500Heart rate95 /minPfo [address] [place], [place] 9612312-22-2023 11:13-0500Respiratory rate12 /minPfo [address] [place], [place] 9612312-22-2023 11:13-1932DfT1% (BldA) [Mass fraction]100 %Pfo [address] [place], [place] 9612312-22-2023 11:13-0500Systolic blood mm[Hg]Pfo 1 [facility]12-01-2023 15:38-0500Body ueflkdxvfxt68 [degF]MD Angel Luis Sanches Work Phone: [facility]12-01-2023 15:38-0500 Diastolic blood yyqcjsvj34 mm[Hg]MD Angel Luis Sanches Work Phone: [facility]12-01-2023 15:38-0500 Heart rate95 /minMD Angel Luis Sanches Work Phone: [facility]12-01-2023 15:38-0500 Respiratory rate18 /minMD Angel Luis Sanches Work Phone: [facility]12-01-2023 15:38-0500 SaO2% (BldA) [Mass fraction]98 %MD Angel Luis Sanches Work Phone: [facility]12-01-2023 15:38-0500 Systolic blood xkwwfrhe973 mm[Hg]MD Angel Luis Sanches Work Phone: [facility]12-01-2023 06:56-0500 Body ueowuu948.2 kgMD Angel Luis Sanches Work Phone: [facility]11-28-2023 15:05-0500 Body .88 cmMD Angel Luis Sanches Work Phone: [facility]10-23-2023 15:04-0400 Diastolic blood arfhfrif03 mm[Hg]Clau Sanchez MD Work Phone: 1(874)[address]10-23-2023 15:04-0400 Systolic blood evtamxqj353 mm[Hg]Clau Sanchez MD Work Phone: 1(059)41447 [address]10-23-2023 14:52-0400 Body twgxet102.4 cmClau Sanchez MD Work Phone: 1(050)[address]10-23-2023 14:52-0400 Body mass index (BMI) [Ratio]39.05 kg/p5YdyjeepClau Sanchez MD Work Phone: 1(553)414[address]10-23-2023 14:52-0400 Body hqbqwo739.26 kgClau Sanchez MD Work Phone: 1(060)414[address]10-23-2023 14:52-0400 Heart rate60 /minClau Sanchez MD Work Phone: 1(261)[address]10-20-2023 11:17-0400 Body cjpbsehcnnp08.8 [degF]MD Angel Luis Sanches Work Phone: [facility]10-20-2023 11:17-0400 Diastolic blood yqieokzm52 mm[Hg]MD Angel Luis Sanches Work Phone: [facility]10-20-2023 11:17-0400 Heart rate85 /minMD Angel Luis Sanches Work Phone: 1(419)[address]10-20-2023 11:17-0400 Respiratory rate18 /minMD Angel Luis Sanches Work Phone: 1(978)[address] [place], [place] 8354810-20-2023 11:17-0400 SaO2% (BldA) [Mass fraction]97 %MD Angel Luis Sanches Work Phone: 1(716)[address] [place], [place] 8354810-20-2023 11:17-0400 Systolic blood mm[Hg]MD Angel Luis Sanches Work Phone: 1(710)[address] [place], [place] 8354810-20-2023 06:00-0400 Body iihfdn657.7 kgMD Angel Luis Sanches Work Phone: 1(508)[address] [place], [place] 8354810-19-2023 15:53-0400 Body .42 cmMD Angel Luis Sanches Work Phone: 1(785)[address] [place], [place] 8354810-18-2023 16:15-0400 Diastolic blood ofyyavif44 mm[Hg]MD Angel Luis Sanches Work Phone: 1(040)[address] [place], [place] 8354810-18-2023 16:15-0400 Heart rate79 /minMD Angel Luis Sanches Work Phone: 1(996)[address]10-18-2023 16:15-0400 Respiratory rate18 /minMD Angel Luis Sanches Work Phone: 1(272)[address] [place], [place] 8354810-18-2023 16:15-0400 SaO2% (BldA) [Mass fraction]98 %MD Angel Luis Sanches Work Phone: [phone])[address] [place], [place] 8354810-18-2023 16:15-0400 Systolic blood zqkvewaw020 mm[Hg]MD Angel Luis Sanches Work Phone: 1(159)[address] [place], [place] 8354810-18-2023 11:18-0400 Body .42 cmMD Angel Luis Sanches Work Phone: 1(024)[address] [place], [place] 8354810-18-2023 11:18-0400 Body fhvtqrreqvt99.6 [degF]MD Angel Luis Sanches Work Phone: 1(215)289-[address] [place], [place] 1783710-18-2023 11:18-0400 Body uncjki311.9 kgMD Angel Luis Sanches Work Phone: 1(847)9[address]08-19-2023 11:30-0400 Body pbunfjagkpz73.8 [degF]MD Angel Luis Sanches Work Phone: 1(409)20824 [address]08-19-2023 11:30-0400 Diastolic blood dfpdnyft231 mm[Hg]MD Angel Luis Sanches Work Phone: 1(422)[address]08-19-2023 11:30-0400 Heart rate81 /minMD Angel Luis Sanches Work Phone: 1(454)46224 [address]08-19-2023 11:30-0400 Respiratory rate16 /minMD Angel Luis Sanches Work Phone: 1(374)[address]08-19-2023 11:30-0400 SaO2% (BldA) [Mass fraction]97 %MD Angel Luis Sanches Work Phone: 1(160)17424 [address]08-19-2023 11:30-0400 Systolic blood fclelqll851 mm[Hg]MD Angel Luis Sanches Work Phone: 1(234)[address]08-19-2023 06:00-0400 Body heyyht685.6 kgMD Angel Luis Sanches Work Phone: 1(332)[address]08-18-2023 22:41-0400 Body pefnxg216.42 cmMD Angel Luis Sanches Work Phone: 1(193)121-[address] [place], [place] 1783712-08-2022 16:53-0500 Diastolic blood akmnazuj71 mm[Hg]MD Angel Luis Sanches Work Phone: 1(873)60824 [address]12-08-2022 16:53-0500 Heart rate71 /minMD Angel Luis Sanches Work Phone: 1(136)383-[address] [place], [place] 1783712-08-2022 16:53-0500 Respiratory rate16 /minMD Angel Luis Sanches Work Phone: [phone]-[facility]12-08-2022 16:53-0500 SaO2% (BldA) [Mass fraction]95 %MD Angel Luis Sanches Work Phone: 1(910)59424 [address]12-08-2022 16:53-0500 Systolic blood yiuvwyaj630 mm[Hg]MD Angel Luis Sanches Work Phone: 1(407)29424 [address]12-08-2022 16:15-0500 Body gnsiopgxqdt96.8 [degF]MD Angel Luis Sanches Work Phone: 1(706)[address]12-08-2022 15:45-0500 Inhaled oxygen flow rate10 L/minMD Angel Luis Sanches Work Phone: 1(150)632[address]12-08-2022 14:21-0500 Body qfuusp956.42 cmMD Angel Luis Sanches Work Phone: 1([phone])[address]12-08-2022 14:21-0500 Body mass index (BMI) [Ratio]42.1 kg/m2MD Angel Luis Sanches Work Phone: 1(665)334[address]12-08-2022 14:21-0500 Body waigpz227 kgMD Angel Luis Sanches Work Phone: 1(446)099-[address] [place], [place] 1783711-29-2022 14:00-0500 Body .88 Flakito Franckinna Other [facility] [employer] Other 11-29-2022 14:00-0500Body mass index (BMI) [Ratio] 44.48 kg/m2Reece [employer] Other [place] [employer] Other 11-29-2022 14:00-0500Body .78 kgReece [employer] Other [place] [employer] Other 11-29-2022 14:00-0500Diastolic blood wccaimvs58 mm[Hg] Reece Rodriguez Other [employer] Other 11-29-2022 14:00-7428LoI6% (BldA) [Mass fraction]96 % Reece Rodriguez Other [employer] Other 11-29-2022 14:00-0500Systolic blood htalqpll497 mm[Hg] Reece Rodriguez Other [employer] Other 10-18-2022 10:00-0400Body xnmudr901.88 cmAkevneto Rodriguez Other [employer] Other 10-18-2022 10:00-0400Body mass index (BMI) [Ratio] 44.81 kg/m2Tommyadrienne Rodriguez Other [employer] Other 10-18-2022 10:00-0400Body naxxxcarhug54.1 [degF]Reece Rodriguez Other [employer] Other 10-18-2022 10:00-0400Body wxdmny992.87 kgTommyadrienne Rodriguez Other [employer] Other 10-18-2022 10:00-0400Diastolic blood rakomqzz40 mm[Hg] Reece Rodriguez Other [employer] Other 10-18-2022 10:00-0400Respiratory rate18 /minReece Rodriguez Other [employer] Other 10-18-2022 10:00-9231HyE1% (BldA) [Mass fraction]98 % Azadrienne Francks Other [employer] Other 10-18-2022 10:00-0400Systolic blood cylayylu841 mm[Hg] Aziz Bakjordys Other [employer] Other 06-14-2022 10:00-0400Body .88 cmAziz Francks Other [employer] Other 06-14-2022 10:00-0400Body mass index (BMI) [Ratio] 43.45 kg/m2Reece Francks Other [employer] Other 06-14-2022 10:00-0400Body yjtxuiugina74.7 [degF]Reece Francks Other [employer] Other 06-14-2022 10:00-0400Body zsrfue709.33 kgReece Francks Other [employer] Other 06-14-2022 10:00-0400Diastolic blood xraytkrk02 mm[Hg] Azadrienne Francks Other [employer] Other 06-14-2022 10:00-0400Respiratory rate18 /minAzadrienne Bakjordys Other [employer] Other 06-14-2022 10:00-5351XzU8% (BldA) [Mass fraction]95 % Aziz Bakhous Other [employer] Other 06-14-2022 10:00-0400Systolic blood rxwrukfu425 mm[Hg] Aziz Bakhous Other [facility] [employer] Other 12-07-2021 10:20-0500Body hnbirx744.88 cmEdaria Fuller Other [place] [employer] Other 12-07-2021 10:20-0500Body mass index (BMI) [Ratio] 44.37 kg/m3DkznpRochelle Fuller Other [place] [employer] Other 12-07-2021 10:20-0500Body gqurddccwxr47.3 [degF]Rochelle Fuller Other [place] [employer] Other 12-07-2021 10:20-0500Body uvborm498.42 kgRochelle Fuller Other [place] [employer] Other 12-07-2021 10:20-0500Diastolic blood mm[Hg] Rochelle Fuller Other [place] [employer] Other 12-07-2021 10:20-0500Respiratory rate18 /minEdaria Fuller Other [place] [employer] Other 12-07-2021 10:20-9935KsH5% (BldA) [Mass fraction]97 % Rochelle Fuller Other [place] [employer] Other 12-07-2021 10:20-0500Systolic blood hjnsamgl524 mm[Hg] Rochelle Fuller Other [place] [employer] Other Encounters Encounter DateEncounter TypeCare ProviderFacilityStart: 08-21-2025 End: 48-22-0381ikjpneocxlHfyq Naderer MD Work Phone: [phone]-Qktnnpdrl Health Vascular SurgStart: 08-21-2025 End: 43-38-5532Ishusce encounter procedureSiena Newsome APRN-[facility] Vascular Surg Work Phone: Start: 08-19-2025 End: 29-24-7959Bjxsvkh encounter procedureAron Beal MD-[facility] [place] Work Phone: Start: 08-19-2025 End: 94-90-1147ytxrdhfhehJfvb Naderer MD Work Phone: [phone]-Pqrvhemrvv Main CampusStart: 33-78-1493Wux-patient / Non-visitReece Rodriguez MD-[facility] Neph [place] Work Phone: Start: 07-21-2025 End: 42-88-9585feomdssdxuOERHRBarney Children's Medical Center HospitalStart: 07-19-2025 Non-patient / Non-visitMabk Mitchell MD-[facility] Vascular Surg Work Phone: Start: 07-19-2025 End: 04-52-0734Beukfjzwpv and management of inpatientFiras Seffo Facility:[facility]: 07-19-2025 End: 15-57-7307Oorirvkjp department patient visitTriHealth Good Samaritan Hospitaltart: 06-16-2025 End: 92-20-9049Rxlkyzcqt department patient visitMARLafayette Regional Health Center HospitalStart: 04-22-2025 End: 13-57-3377Jkmslearc Result EncounterAretha Butt MD Work Phone: noms External Department UnsolicitedStart: 04-22-2025 End: 39-56-2443Gnicfnvyz Result EncounterAretha Butt MD Work Phone: noms External Department UnsolicitedStart: 04-22-2025 End: 38-46-5112uxqlhenxreDPBZC M ALDAMercy [facility] Memorial Hospitaltart: 04-22-2025 End: 94-31-0200Qzfzewkqpq [facility] Start: 10-31-2024 End: 35-48-3088awljnnapfnYSLZ O RANKERProPike Community Hospitalca [facility] HospitalStart: 08-09-2024 End: 82-33-1711Wxjgmfwln Result EncounterGeneric External Data ProviderNOMS External Department UnsolicitedStart: 08-09-2024 End: 80-02-9702Rowsnqisq Result EncounterGeneric External Data ProviderNOMS External Department UnsolicitedStart: 95-02-3571Jxv-patient / Non-visitMD Angel Luis Sanches Work Phone: [facility] Work Phone: Start: 05-19-2024 End: 77-68-5975Cqijyadeuq and management of inpatientMD Angel Luis Sanches Work Phone: [facility] [place] [facility] S[facility] Work Phone: Start: 16-41-9423Baxutk Brijesh Sanches MD Work Phone: noms CWM FMStart: 99-06-1888Ckqdas Brijesh Sanches MD Work Phone: noms CWM FMStart: 11-29-2023 End: 71-46-7981vlqiygngcyJMWA NADERERNot AvailableStart: 11-29-2023 End: 56-59-6938Xlapdr outpatient visit 25 minutesAngel Luis Sanches MD Work Phone: noms CWM FMComment on above:Peritoneal dialysis status (CMS/HCC) (Primary Dx); Essential hypertension, benign (CMS/HCC); Chronic cluster headache, not intractable; End stage renal disease (CMS/HCC)Start: 11-03-2023 End: 60-13-1243fkaxsniwvdTjw Infusion Chair 1DkrishnaBraxton [facility] - Medical OncologyComment on above:Bacteremia (Primary Dx)Start: 10-31-2023 End: 00-44-3010frdzqklaamJye Infusion Chair 1DkrishnaBraxton County Memorial Hospital - Medical OncologyComment on above:Severe sepsis without septic shock ([facility]-HCC) (Primary Dx); Methicillin susceptible Staphylococcus aureus infection as the cause of diseases classified elsewhere; Bacteremia; ESRD (end stage renal disease) on dialysis ([facility])Start: 10-27-2023 End: 89-00-3727tlvydysviyGsn Infusion Chair [address] [place] [address] OncologyComment on above:Bacteremia (Primary Dx); Severe sepsis without septic shock ([facility]); Methicillin susceptible Staphylococcus aureus infection as the cause of diseases classified elsewhere; ESRD (end stage renal disease) on dialysis ([facility])Start: 10-24-2023 End: 64-24-3355aynqfhsmekUog Infusion Chair 1DThibodaux [facility] OncologyComment on above:Severe sepsis without septic shock ([facility]) (Primary Dx); Methicillin susceptible Staphylococcus aureus infection as the cause of diseases classified elsewhere; Bacteremia; ESRD (end stage renal disease) on dialysis ([facility])Start: 10-20-2023 End: 86-07-2957giopuwngmqUbc Infusion Chair [address] [place] [address] OncologyComment on above:Severe sepsis without septic shock ([facility]) (Primary Dx); Methicillin susceptible Staphylococcus aureus infection as the cause of diseases classified elsewhere; Bacteremia; ESRD (end stage renal disease) on dialysis ([facility])Start: 96-00-8668Comoms Jareth Martini RNDoAllen Parish Hospital OncologyComment on above: Bacteremia (Primary Dx)Start: 10-17-2023 End: 58-98-7012Nfengv Andrew Moralez [facility] Work Phone: dThibodaux [facility] OncologyComment on above:Bacteremia (Primary Dx); Severe sepsis without septic shock ([facility]); Methicillin susceptible Staphylococcus aureus infection as the cause of diseases classified elsewhere; ESRD (end stage renal disease) on dialysis ([facility])Start: 10-13-2023 End: 05-04-2198giwwvzfokvWgz Infusion Chair [address] [place] [address] OncologyComment on above:Bacteremia (Primary Dx); Severe sepsis without septic shock ([facility]); Methicillin susceptible Staphylococcus aureus infection as the cause of diseases classified elsewhere; ESRD (end stage renal disease) on dialysis (CMS-HCC)Start: 09-27-2023 End: 71-53-5749xhjcmhneppInnqzkl Blank Other [place] [employer] Other Start: 44-96-9935Detezgsmd encounterMichaetania OrtegaFPG Infectious DiseaseStart: 09-16-2023 End: 94-73-0509Ueqmbjqsps and management of inpatientMD Angel Luis Sanches Work Phone: [facility] [place] [facility] Work Phone: Start: 08-14-2023 End: 92-01-8987wvxmfvtksqFPNBSDUJewish Memorial Hospital AmbulatoryStart: 08-14-2023 End: 03-44-2350Rgvinw outpatient visit 25 minutesMofabian Sanchez MD Work Phone: [facility] CenterComment on above:Syncope, unspecified syncope type (Primary Dx); Nonrheumatic aortic valve stenosis; Dilated aortic root (CMS/HCC); Dialysis patient (CMS/HCC); Essential hypertension; Cerebrovascular accident (CVA), unspecified mechanism (CMS/HCC); Gout, unspecified cause, unspecified chronicity, unspecified site; BMI 39.0-39.9,adultStart: 08-10-2023 End: 20-24-0717Ulbkfdiupk and management of inpatientMD Angel Luis Sanches Work Phone: [facility] [place] [facility] Work Phone: Start: 08-09-2023 End: 65-28-9192Ugxqumfejm and management of inpatientMD Angel Luis Zofialauren Work Phone: [facility] [place] [facility] Work Phone: Start: 08-09-2023 End: 76-25-4761kokqkkybrpw encounterMD Angel Luis Zofialauren Work Phone: [facility] Work Phone: Start: 13-59-8935byqkdgfslxSsAviva Sanches Facility:[id number]: 12-30-2001zawuyabwrlOTR UNKNOWNFacility:UHCStart: 95-26-7456hyidyxwajsCrAviva Angel Luis GallegosrFacility:9090Start: 06-09-2023 End: 07-15-7689Mfogyyhula and management of inpatientMD Angel Luis Gallegosjaki Work Phone: [facility] [place] [facility] Work Phone: Start: 06-09-2023 End: 05-64-1786bpqhefcgnvc encounterMD Angel Luis Gallegosjaki Work Phone: [facility] Work Phone: Start: 09-29-2022 End: 56-41-9572Llqwbwnon to same day surgery centerMD Angel Luis Armijolauren Work Phone: [facility] CampusStart: 09-29-2022 End: 87-26-0053wyzsmcxiriJK Angel Luis Gallegosjaki Work Phone: [facility] Work Phone: Start: 09-27-2022 End: 12-92-8607tnplqrvucqOV Angel Luis Sanches Work Phone: [facility] Work Phone: Start: 09-27-2022 End: 49-07-9324Sitdzid encounter procedureMD Angel Luis Gallegosjaki Work Phone: [facility] Rry-Tbz-Zgoxfpgr Testing Start: 09-20-2022 End: 55-79-4082adviiofinjHjgc Bakjordys Other [employer] Other Start: 02-76-5960Dwpsia outpatient visit 25 minutes Reece Miranda Nephrology ClydeStart: 08-09-2022 End: 53-85-9246nrepvtzfmrClcr Bakjordys Other [employer] Other Start: 17-40-2437Kezdae outpatient visit 25 minutes Azadrienne RodriguezFPG Nephrology ClydeStart: 05-05-2022 End: 53-25-7843fdgydcminrWjbzzno Langenberg Other [employer] Other Start: 76-71-5441Cxwedlmbs encounterMabk Mitchell FPG Referral CoordinatorStart: 04-05-2022 End: 36-44-6418yrytohuxhiZcho Bakhous Other [employer] Other Start: 50-17-3823Yzylez outpatient visit 25 minutes Aziz MichaelFPG Nephrology ClydeStart: 03-31-2022 End: 80-76-1069ceixznhbvtZyib Bakhous Other [employer] Other Start: 83-60-8536Ufpyvssxz encounterAzadrienne FrancksFPG NephrologyStart: 09-28-2021 End: 45-54-9862ijyfizkxvpPpwob Elashi Other [employer] Other Start: 13-62-8482Zqgmwz outpatient visit 25 minutes Jairomichael Connie [facility] [place]burgStart: 09-03-2018 End: 40-13-0012Vmnyitu encounter procedureABDUL QADIRFacility:G4Oymlb: 75-39-1408Wcxndfqpo encounterMarsheldon Sanches MD Work Phone: [facility] Start: 07-24-2018 End: 88-15-9296Ugtmxlp encounter procedureESSAM ELASHIFacility:U2Wpbua: 06-25-2018 End: 92-24-6636Rkzerfh encounter procedureMARC A NADERERFacility:V5Lzzwy: 06-25-2018 End: 58-29-6784Bdpfyrk encounter procedureMARC A NADERERFacility:R9Qwbuw: 01-15-2018 End: 98-29-0657Gsqkfic encounter procedureMARC A NADERERFacility:J2Dpdvp: 11-28-2017 End: 89-59-9616Hypjuni encounter procedureMARC A NADERERFacility:H1 Procedures DateProcedureProcedure DetailPerforming ClinicianStart: 10-77-3138N[place] angiography Angel Luis Sanches MD Work Phone: Start: 54-72-9292Yuncaanl screenJOHN RANKERComment on above:Performed By: #### TSC #### [facility] ([facility]) [address] [place] [address]. [place] [address] VIRStart: 01-26-2304Awiscmlfqqnkt metabolic panelAretha Butt MD Work Phone: Start: 78-22-4857WNQX COMP METABOLIC PROFAretha Butt MD Work Phone: Start: 23-34-5371Bxkhbdrm identified in Urine by CultureGeneric External Data ProviderStart: 02-13-2947Xjdsullhpkrxg of transfusion reactionMD Angel Luis Sanches Work Phone: Start: 81-81-9921Bplturblbj radiography of abdomenMD Angel Luis Sanches Work Phone: Start: 96-77-1331Hopyb chest X-rayMD Angel Luis Sanches Work Phone: Start: 11-41-3379Neohw chest X-rayMD Angel Luis Sanches Work Phone: Start: 86-87-1170Uhtak chest X-rayMD Angel Luis Sanches Work Phone: Start: 16-23-2925Nypyjaxwpnfiqfc of bilateral kidneys MD Angel Luis Sanches Work Phone: Start: 01-89-5727EM of chest without contrastMD Angel Luis Sanches Work Phone: Start: 47-33-5313Wpusfpv microbial cultureMD Angel Luis Sanches Work Phone: Start: 36-09-3840Nzrqbxuyhfsja of transfusion reaction MD Angel Luis Sanches Work Phone: Start: 11-28-6939Skixktz microbial cultureMD Angel Luis Armijolauren Work Phone: Start: 22-38-2286Gqzldqjdz microbial cultureMD Angel Luis Sanches Work Phone: Start: 71-26-8432Hsaoavvhgglyf of transfusion reaction MD Angel Luis Sanches Work Phone: Start: 73-06-0415Kldhe chest X-rayMD Angel Luis Zofialauren Work Phone: Start: 63-79-9582AL of head without contrastMD Angel Luis Sanches Work Phone: Start: 30-35-2049Knesh chest X-rayMD Angel Luis Armijolauren Work Phone: Start: 31-81-0398JV angiography of headMD Angel Luis Sanches Work Phone: Start: 70-77-6541MW angiography of neck vesselsMD Angel Luis Sanches Work Phone: Start: 07-27-9386Urwyssn ultrasonography of bilateral carotid arteriesMD Angel Luis Zofialauren Work Phone: Start: 47-06-4890Gzazrijzofkr insertion of peritoneal dialysis catheterMD Angel Luis Gallegosjaki Work Phone: Start: 94-32-8646Vjole chest X-rayMD Angel Luis Armijolauren Work Phone: History of repair of inguinal herniaStatus post inguinal hernia repairMD Angel Luis Zofialauren Work Phone: SARS Antigen (LFIA)MD Angel Luis Sanches Work Phone: Plan of Treatment DateCare ActivityDetailAuthorStart: 94-15-2984Sjmubedcwpj Syncytial Virus (RSV) or age 60 yrs+ (1 - 1-dose 75+ series)Respiratory Syncytial Virus (RSV) or age 60 yrs+ (1 - 1-dose 75+ series)[facility] AmericaStart: 81-84-6122NX angiographyUS map hemodial access BILKettering Memorial Hospitaltart: 35-97-0198UampgzbafCommunity Regional Medical Center CenterStart: 07-24-2025 Administration of prophylactic treatmentKettering Memorial Hospitaltart: 15-82-5124WyljqehilKettering Memorial Hospitaltart: 99-26-5380Hnnruewm to vascular surgeonKettering Memorial Hospitaltart: 62-16-1653Kotcutzz to infectious diseases physicianKettering Memorial Hospitaltart: 59-12-4117Kogcwjdp admissionKettering Memorial Hospitaltart: 21-15-1791Kjykousi to nephrologistKettering Memorial Hospitaltart: 13-46-5306Ojtmzcrqf vaccinationFlu vaccine (#1)[facility] CenterStart: 85-05-1605Cakow BMI ScreeningAdult BMI ScreeningProPike Community Hospitalca Health SystemStart: 02-98-1185Lfxddvs ScreeningTobacco ScreeningThe Christ Hospitalca Health SystemStart: 50-07-7101Txpoo BMI ScreeningAdult BMI ScreeningProMedica Health SystemStart: 74-53-7473Qvtfiwc ScreeningTobacco ScreeningCentral Vermont Medical CenterMedica Health SystemStart: 93-05-6459Bdzty BMI ScreeningAdult BMI ScreeningProMedica Health SystemStart: 09-59-0504Uxxoizs ScreeningTobacco ScreeningProMedica Health SystemStart: 08-46-8899Vjjbh BMI ScreeningAdult BMI ScreeningProMedica Health SystemStart: 14-42-2336Jxigl BMI ScreeningAdult BMI ScreeningProMedica Health SystemStart: 31-56-0156Iswyldy ScreeningTobacco ScreeningProMedica Health SystemStart: 22-67-6174Guone BMI ScreeningAdult BMI ScreeningProMedica Health SystemStart: 26-25-6907Izzmjmm ScreeningTobacco ScreeningProMedica Health SystemStart: 03-77-1099Kymnp BMI ScreeningAdult BMI ScreeningProMedica Health SystemStart: 01-09-9256Ntygmqu ScreeningTobacco ScreeningProMedica Health SystemStart: 75-74-4287Xxckt BMI ScreeningAdult BMI ScreeningProMedica Health SystemStart: 10-05-1863Zyqhzaq ScreeningTobacco ScreeningCenterville SystemStart: 76-24-5914PLLCY-19 Vaccine ()COVID-19 Vaccine ()[facility]alkilo [facility] HospitalStart: 50-97-7723Tnutnngxi vaccinationInfluenza Vaccine (#1)[facility] HealthcareStart: 62-27-8544SmsiwsnvnKettering Memorial Hospitaltart: 05-28-2024 [facility]: 92-67-3492CjxjdlireKettering Memorial Hospitaltart: 99-67-7093EromsvobhKettering Memorial Hospitaltart: 05-25-2024 [facility]: 18-79-5612YnfctujdeKettering Memorial Hospitaltart: 31-32-1819IpcwgyzoxKettering Memorial Hospitaltart: 05-22-2024 [facility]: 05-21-2024 End: 48-88-8798VonsurpsiKettering Memorial Hospitaltart: 35-65-9882xFPT in Platelet poor plasma by Coagulation assayKettering Memorial Hospitaltart: 97-25-0002OiesqwxobKettering Memorial Hospitaltart: 45-79-4969Ftbycfmtm culture, body fluidKettering Memorial Hospitaltart: 05-19-2024 End: 92-67-3795GdzvhxbpkKettering Memorial Hospitaltart: 38-36-4018Scytyiye admissionKettering Memorial Hospitaltart: 15-61-1522Hpflbynl to general surgeonKettering Memorial Hospitaltart: 91-68-7006Gqrenzgm to nephrologistKettering Memorial Hospitaltart: 69-46-0125Gwyvmimlo culture, body fluidKettering Memorial Hospitaltart: 02-13-2024 End: 41-67-7409Iououfk encounter vcrodwdzj15/23/2024 3:50 PM EDT Office Visit [address] [place] [address] Clau Sanchez MD [facility] [facility] [address] [place] [address] [facility]: 11-29-2023 End: 21-50-1410Jxxgghh encounter osogcrsua51/07/2024 10:45 AM EST Office Visit [facility] [address] [place] [address] Angel Luis Sanches MD [address] [place] [address] ArrivedNOMS CWM FMComment on above:ArrivedStart: 11-03-2023 End: 24-66-7268nihikhdiil92/12/2024 11:00 AM EST Infusion Caren Bolton [facility] - Medical Oncology [address] [place] [address] Ca[facility] Medical OncologyStart: 10-31-2023 End: 09-21-4131wtkggenqaa46/09/2024 11:00 AM EST Infusion Caren Bolton [facility] - Medical Oncology [address] [place] [address] Caren Bolton [facility] Medical OncologyStart: 10-27-2023 End: 21-96-8801pjdtggkxep25/05/2024 11:00 AM EST Infusion Caren Bolton [facility] - Medical Oncology [address] [place] [address] Caren Bolton [facility] Medical OncologyStart: 10-24-2023 End: 66-37-9314iiuqxnbrio15/02/2024 11:00 AM EST Infusion Caren Bolton [facility] - Medical Oncology [address] [place] [address] Caren Bolton [facility] Medical OncologyStart: 10-20-2023 End: 24-58-9583reeihidipb37/29/2023 11:00 AM EST Infusion Caren Bolton [facility] - Medical Oncology [address] [place] [address] Caren Bolton [facility] - Medical OncologyStart: 10-17-2023 End: 91-21-4645xzaxyyirki47/26/2023 11:00 AM EST Infusion Caren Bolton [facility] - Medical Oncology [address] [place] [address] Caren Bolton [facility] - Medical OncologyStart: 10-13-2023 End: 43-08-1925tdpelqnvnw20/22/2023 11:00 AM EST Infusion Caren Bolton [facility] - Medical Oncology [address] [place] [address] Caren Bolton [facility] - Medical OncologyStart: 59-87-0813BjsqqydgsKettering Memorial Hospitaltart: 19-89-0665Ucchpzsvo of peripherally inserted central catheterKettering Memorial Hospitaltart: 86-92-1562Cbuoy culture for bacteria, including anaerobic screenBlood CultureKettering Memorial Hospitaltart: 19-99-1854Qllepbxo to oncologistMetrohealth Main Campus Medical Center Start: 85-30-8824Giowahma to infectious diseases physicianKettering Memorial Hospitaltart: 74-04-1034Blvpdytk admissionKettering Memorial Hospitaltart: 23-04-2917Ndmnjlri to nephrologistMetrohealth Main Campus Medical Center Start: 48-30-7004DapskytjbKettering Memorial Hospitaltart: 90-81-1799TruxmgbyhKettering Memorial Hospitaltart: 41-82-9606ScvedpbqlKettering Memorial Hospitaltart: 69-98-7234WwisnjhsuKettering Memorial Hospitaltart: 43-88-3332FluqzjbasKettering Memorial Hospitaltart: 16-14-1041Pyleg [facility] Start: 85-29-2633PxmixdlcqKettering Memorial Hospitaltart: 97-30-4818Qevdd [facility] Centertart: 88-45-1402TdpizikijKettering Memorial Hospitaltart: 82-93-0815Zzoob [facility] Start: 80-43-6819DorwwjjppKettering Memorial Hospitaltart: 97-45-5574Ptltg [facility]ertart: 08-11-2023 End: 05-37-2904CduyofwmuKettering Memorial Hospitaltart: 59-63-1200Qvnyb chemistry [facility]tart: 46-51-0793Gzxzj panelKettering Memorial Hospitaltart: 08-10-2023 End: 40-30-7846RrkklejqyKettering Memorial Hospitaltart: 99-01-0825Vusxfxvg to nephrologistKettering Memorial Hospitaltart: 04-94-1744EXS of headMR head/brain wo [facility] Hamiltontart: 72-63-5312Jddjzgdo to neurologistKettering Memorial Hospitaltart: 20-97-1062Mjswsfvg admission [facility]tart: 89-78-8567MfuavhcpsKettering Memorial Hospitaltart: 48-60-7248Sooicucec vaccinationOhio State Health System Start: 45-59-3801YydsrlwalKettering Memorial Hospitaltart: 56-77-0235Huzkhkj ultrasonography of bilateral carotid arteriesUS carotid doppler [facility] Centertart: 45-48-1485RU.doppler Carotid arteries - bilateral [facility]tart: 04-13-7179Nmbkadcq to police records clerk [facility]tart: 86-95-1607Ioikygwx admissionKettering Memorial Hospitaltart: 15-31-8073LotilxqncKettering Memorial Hospitaltart: 97-94-7185Oxemdpggv B core antibody measurementMetrohealth Main Campus Medical Center Start: 98-96-3369TigyjiubmKettering Memorial Hospitaltart: 04-65-8837Ezst Risk ScreeningFall Risk ScreeningCenterville SystemStart: 51-50-5842Koevsuaiasvj Vaccine: 65+ Years (1 of 1 - PCV)Pneumococcal Vaccine: 65+ Years (1 of 1 - PCV) [facility] HospitalStart: 87-10-1397Lnphuinvwclvef of varicella zoster vaccineZoster (Shingles) Vaccine (1 of 2)[facility] SystemStart: 36-16-3501Gamlps Vaccines (1 of 2)Zoster Vaccines (1 of 2)[facility] SystemStfort [place]uderdale: 88-49-6888ADhZ/Tdap/Td Vaccines (1 - Tdap)DTaP/Tdap/Td Vaccines (1 - Tdap) [facility]: 74-61-8657UFyP,Tdap and Td Vaccines (1 - Tdap)DTaP,Tdap and Td Vaccines (1 - Tdap)[facility]MJackson [facility] SystemStart: 45-56-0961IXzF/Tdap/Td vaccine (1 - Tdap)DTaP/Tdap/Td vaccine (1 - Tdap)[facility] HospitalStart: 04-61-3354Tkfnv BMI Follow Up PlanAdult BMI Follow Up PlanAtrium Health Kings Mountaintart: 28-41-8749Pyjebazef C screeningHepatitis C ScreeningAultman Alliance Community Hospital: 60-03-5898Kdljidaiaw Screening Depression ScreeningAtrium Health Kings Mountaintart: 94-50-0577Owloucwhdwlb Vaccine: 65+ Years (1 - PCV)Pneumococcal Vaccine: 65+ Years (1 - PCV)[facility]: 95-19-5848LAITJ-19 Vaccine (#1)COVID-19 Vaccine (#1)[facility]: 31-17-9872Vzipa panelLipid Panel [facility]: 1955Medicare Annual Wellness (AWV) Medicare Annual Wellness (AWV)[facility] HospitalStfort [place]: 1955Medicare Annual Wellness VisitAultman Alliance Community Hospital: 23-58-1181Wvhbcytsj for malignant neoplasm of colonOhio State Health SystemAnion gap measurementMetrohealth Main Campus Medical CenterBacteria identified in Unspecified specimen by Aerobe cultureMetrohealth Main Campus Medical CenterBacteria identified in Unspecified specimen by Anaerobe cultureMetrohealth Main Campus Medical Center Bacteria identified in Urine by CultureURINE CULTURE, ROUTINE Lab Routine 08/09/2024 5:10 AM EDTUTAH STATE H[facility] HealthcareCardiac event recordingMetrohealth Main Campus Medical CenterHepatitis B core antibody measurementCommunity Regional Medical Center Ctr Work Phone: Hepatitis B virus surface Ab [Presence] in Serum [facility] Work Phone: Hepatitis B virus surface Ag [Presence] in Serum or Plasma by ImmunoassayCommunity Regional Medical Center Ctr Work Phone: Patient EducationCommunity Regional Medical Center Ctr Work Phone: Patient referralSt. John Of God [facility] Work Phone: End: 50-49-0333BAHS Line RemovalPICC Line Removal Procedures Routine Bacteremia 1 Occurrences starting 10/19/2023 until 10/19/2024[facility] Work Phone: Comment on above:1 Occurrences starting 10/19/2023 until 10/19/2024[facility] Payers DatePayer CategoryPayerPolicy [id number] 2025Self-pay [id number] [id number] [id number] 2022Medicare (Managed Care)[employer] [id number] 2018Medicare [id number] [id number] 2.840.1.571786.3.579.[id number] 2.0.1.861670.3.579.[id number] 2.16.840.1.049128.3.579.2.27092-83-9777Jxozonf6673531 2.16.840.1.233103.3.579.2.64091-31-2417Eyqdeec3921641 2.16.840.1.739138.3.57[id number] 2.16.840.1.468106.3.579.[id number] 2.16.840.1.294409.3.579.[id number] 2.16.840.1.279493.3.579.2.[id number] 2.840.1.036092.3.579.[id number] 2.16.840.1.522845.3.57[id number] 2.16.840.1.765923.3.57[id number] 2.16.840.1.130490.3.579.[id number] 2.16.840.1.276998.3.579.2.[id number] 2.16.840.1.575941.3.579.[id number] 2.16.840.1.043592.3.57[id number] 2.16.840.1.319046.3.57[id number] 2.16.840.1.352895.3.57[id number] 2..840.1.6[id number] 2..840.1.388048.3.579.2.531 Social History DateTypeDetailFacilityUnknown if ever smokedNort Rank By Search Other Start: 02-10-2013 End: 14-37-5943Jnd Assigned At BirthAtrium Health Kings Mountaintart: 09-27-2022 End: 43-57-3393Wyekbxw smoking status NHISNever smoked tobacco (finding) [facility]tart: 52-85-7835Wfi Assigned At [facility]: 04-12-2023 End: 27-69-8448Heoflfl use and exposureSmokeless tobacco non-userOhio State Health System Work Phone: Start: 10-25-7011Spgslmz intakeLifetime non-drinker (finding)[facility] Work Phone: Start: 02-10-2013 End: 62-81-0450Ktvdcig of Social functionAtrium Health Kings Mountaintart: 98-12-1855Msx Assigned At BirthNot on fileOhio State Health System Work Phone: Start: 11-12-2022 End: 53-43-4461Bsaabplk to SARS-CoV-2 (event)Not sureOhio State Health SystemStart: 11-24-2023 End: 00-20-3306Vknkuzd intakeEx-drinker (finding)[facility] HospitalStart: 07-23-2018 End: 50-92-1236Pnqqhkv intakeCurrent non-drinker of alcohol (finding)[facility] SystemHousing InstabilityUnknownProMedica Health SystemTobacco smoking status NHISTobacco smoking consumption unknownBon [facility] CenterStart: 12-45-8148UbuXwir (finding)[facility] CenterStart: 07-22-2025 End: 21-16-2526ZDGW Follow upSDOH Follow upSt. John Of God Hospital Work Phone: Medical Equipment Procedure CodeEquipment CodeEquipment Original TextEquipment IdentifierDates Insertion, catheter, dialysis, peritoneal, laparoscopicPeritoneal dialysis catheter, chronic()[id number] FDAStart: 25-32-9977Feeqamtdatnn guidance for insertion of tunnelled dialysis catheter Double-lumen haemodialysis catheter, implantable ()[id number] FDAStart: 67-38-8900Xfjx Perfix Plg Xlg Rpl [id number] - Sna - [id number]: 07-10-2018 Goals DatePatient GoalDesired Activity/State Functional Status GtmhKtlxashcyeXgwoqfNwvpkjjh00-47-8525Nrznrgdtbz statusPatient at Baseline [facility] Work Phone: 1([phone] 787-532807-986481-27-2686Zzoryrfdmq statusBathing Patient at Baseline [facility] Work Phone: 1([phone]ftattcwwg statusPatient at Baseline [facility] Work Phone: [phone]) 386-770610-524243-05-0013Ogmuojhqjv statusPatient at Baseline [facility] Work Phone: [phone]wsdoxqf statusPatient at Baseline [facility] Work Phone: Mental Status SoklMzhvlcxrhcFhjhalDrxdbcro39-64-0621Ncdpkpfyk functionCognitive Status Patient at BaselineSt. [facility] Of [facility] Work Phone: [phone]tjyundm functionCognitive Status Patient at BaselineSt. [facility] Work Phone: [phone]zuiqgz functionCognitive Status Patient at BaselineSt. [facility] Work Phone: [phone]qatdyn functionCognitive Status Patient at BaselineKet[facility] Work Phone: Clinical Notes 07-24-2018 to 07-19-2025 Note Date & TzyqGdjjNhzqrhbh96-22-7156 Evaluation note* Diagnosis Onset Date Resolution Status Admit Date (HFpEF) heart failure with preserved eje ction fraction acuteSeptember 2024 8:42pmAcute hypoxic respiratory failureacuteSept2024 8:42pmAnemia of renal diseaseacuteSept2024 8:42pmEnd- stage renal disease on peritoneal dialysisacuteSept2024 8:42pmGout acuteSept2024 8:42pmHypertensionacuteSept2024 8:42pm Hypertensive chronic kidney disease with stage 5 chronic kidney disease oracute July 19, 2025 8:42pmHypokalemiaacuteSept2024 8:42pmPeritoneal dialysis catheter in placeacuteJuly 19, 2025 8:42pmPeritonitis associated with peritoneal dialysisacuteSept2024 8:42pmPneumonia acuteSept2024 8:42pmSeptic shockacuteSept2024 8:42pm [facility] Work Phone: 1([phone] 886-465209-27-2025 Evaluation note* Diagnosis Onset Date Resolution Status Admit Date (HFpEF) heart failure with preserved eje ction fraction acuteSept2024 8:42pmAnemia of renal diseaseacuteSept2024 8:42pmEnd-stage renal disease on peritoneal dialysisacuteSept2024 8:42pmGoutacuteSept2024 8:42pmHypertensionacuteSept2024 8:42pmHypertensive chronic kidney disease with stage 5 chronic kidney disease or acuteJuly 19, 2025 8:42pmAcute hypoxic respiratory failureresolved July 19, 2025 8:42pmHypokalemiaresolvedSept2024 8:42pm Peritoneal dialysis catheter in placeresolvedJuly 19, 2025 8:42pm Peritonitis associated with peritoneal dialysisresolvedSept5 8:42pmPneumoniaresolvedSeptember 2024 8:42pmSeptic shockresolvedK[facility] 2024 8:42pm [facility] Work Phone: 1([phone] 385-931507-30-2024 Discharge summary Author Nicolas Man [facility] May 21, 2024 2:00pmNote Date/TimeJuly 2023 2:00pm[place] [address] Discharge Summary Signed Patient: Luis Chong III MR#: [id number] : 1955 Acct:[id number] Age/Sex: 69 / M Adm Date: 4 Loc: Room: [address] [place] [address]: Nicolas Man MD Copies to: MD Nicolas Sandoval MD~ Providers Date of Discharge: 05/21/24 Discharging Provider: Nicolas Man Primary Care Provider: Angel Luis Sanches Consults: 05/19/24 05:52 Consult to General Surgery Routine Comment: Consulting Provider: Yordan Mora Reason For Exam: Blocked Peritoneal Dialysis catheter. Has Provider Been Notified: Yes Date of Notification: 05/19/24 Time of Notification: 09:14 Consult to Nephrology Routine Comment: Consulting Provider: Dom Faustin Has Provider Been Notified: Yes Date of Notification: 05/19/24 Time of Notification: 09:03 Reason for Consult: Dialysis Treatment Discharge Diagnosis (1) Peritoneal dialysis catheter dysfunction: (2) End-stage renal disease on peritoneal dialysis: (3) Hypokalemia: (4) Leukocytosis: (5) Anemia of renal disease: (6) Hypertensive chronic kidney disease with stage 5 chronic kidney disease or end stage renal disease: (7) (HFpEF) heart failure with preserved ejection fraction: Final Diagnosis Final Discharge Diagnosis: As above Summary Hospital Course Hospital course: Patient is a pleasant 69-year-old male with history of end-stage disease on peritoneal dialysis andother medical comorbidities. He presented to the emergency room due to PD catheter not working. Patient was admitted and nephrology was consulted and started on broad-spectrum IV antibiotic. After usi ng heparin PD catheter has been working properly. General surgery was consulted plan was for PD catheter replacement if not working properly. Startedempirically on IV antibiotic by nephrology. Peritoneal fluid culture came back negative for any growth and has been cleared by nephrology to be discharged homewith discontinuation of antibiotics. During hospital stay he remained asymptomatic with no complaint of abdominal pain, nausea, vomiting or diarrhea. He remained afebrile. Condition Condition at Discharge: Stable Status at Discharge Functional status at discharge: independent ambulation Overall status at discharge: patient is back to baseline Time Spent with Patient Time spent providing/coordinating discharge services (# min): 35 Discharge Plan Discharge Plan Patient Disposition: Home Activity: Ambulate as Tolerated Diet: Renal Instructions: Know your Meds Prescriptions: Continued sevelamer carbonate 800 mg tablet 800 mg PO TIDWMEAL Patient Comments: TAKE 1 TABLET BY MOUTH THREE TIMES A DAY WITH MEALS latanoprost 0.005 % drops 1 drp Eye-Left HS Patient Comments: INSTILL 1 DROP INTO LEFT EYE AT BEDTIME magnesium oxide 400 mg (241.3 mg magnesium) tablet 400 mg PO DAILY Patient Comments: TAKE ONE TABLET BY MOUTH ONCE A DAY pilocarpine HCl 2 % drops 1 drp Eye-Left BID Patient Comments: INSTILL 1 DROP INTO LEFT EYE TWICE A DAY Dialyvite 100-1 mg tablet 1 tab PO DAILY Patient Comments: TAKE 1 TABLET BY MOUTH EVERY DAY polyethylene glycol 3350 17 gram/dose powder 17 g PO DAILY Patient Comments: MIX 1 SCOOP (17G) IN LIQUID AND DRINK ONCE DAILY DIRECTED acetaminophen [Arthritis Pain Relief (acetam)] 650 mg tablet extended release 650 mg PO Q4HR PRN (Reason: fever or pain) albuterol sulfate 2.5 mg /3 mL (0.083 %) solution for nebulization 2.5 mg continuous nebulization Q4HR ferrous sulfate 325 mg (65 mg iron) tablet 325 mg PO DAILY Rx Instructions: FreeTextSig: TAKE 1 TABLET BY MOUTH EVERY DAY; Note: Source Status: Start; Refills: 0; Qty: 90 Tablet; Provider: Jonny Byrd ( ) gentamicin 0.1 % cream 1 applic TOPICAL DAILY Rx Instructions: Pea size topical daily to PD catheter exit site with dressing change guaifenesin [Cough Syrup] 100 mg/5 mL liquid 200 mg PO Q4HR PRN (Reason: cough) polyethylene glycol 3350 [Miralax] 17 gram/dose powder 17 g PO DAILY alum-mag hydroxide-simeth [Mag-Al Plus] 200-200-20 mg/5 mL suspension 5 ml PO Q4HR PRN (Reason: indigestion) [employer] Renal 2 Jamie 0.09 gram- 2 kcal/mL liquid 1 ea PO Q OTHER DAY Rx Instructions: 1 8 oz. drink every Monday, Monday, Monday omeprazole 20 mg Capsule,Delayed Release(Dr/Ec) 40 mg PO QAM furosemide 40 mg tablet 80 mg PO BID Patient Comments: TAKE 1 TABLET BY MOUTH TWICE A DAY atorvastatin 80 mg tablet 80 mg PO QHS Patient Comments: TAKE 1 TABLET BY MOUTH EVERY DAY allopurinol 100 mg tablet 100 mg PO QAM Patient Comments: TAKE 1 TABLET BY MOUTH EVERY DAY calcitriol 0.5 mcg capsule 0.5 mcg PO QAM Patient Comments: TAKE 1 CAPSULE BY MOUTH EVERY DAY FOR 90 DAYS brimonidine 0.2 % drops 1 drp Eye-Both BID Patient Comments: INSTILL 1 DROP INTO BOTH EYES TWICE A DAY DIRECTED gabapentin 300 mg capsule 300 mg PO QHS Patient Comments: TAKE 1 CAPSULE BY MOUTH THREE TIMES A DAY timolol maleate 0.5 % drops 1 drp Eye-Both BID Patient Comments: INSTILL 1 DROP INTO BOTH EYES TWICE A DAY DIRECTED dorzolamide 2 % drops 1 drp Eye-Both BID Patient Comments: INSTILL 1 DROP INTO BOTH EYES TWICE A DAY DIRECTED verapamil 240 mg tablet extended release 240 mg PO DAILY Patient Comments: TAKE 1 TABLET BY MOUTH EVERY DAY sodium chloride 0.9 % (flush) [Normal Saline Flush] Syringe 10 ml IV DAILY 42 Days Qty: 840 0RF Rx Instructions: administer before and after IV drug administration as part of [facility] protocol sodium chloride 0.9 % (flush) [Normal Saline Flush] Syringe 10 ml IV DAILY 42 Days Qty: 73.5 0RF Rx Instructions: administer before and after IV drug administration as part of [facility] protocol Discontinued Vancomycin - Pharmacy Dosing 1 ea IV ONCE PRN (Reason: infection) Exam Physical Exam Vital Signs: Temp Pulse Resp BP Pulse Ox O2 Del Method 98.1 F 81 20 135/73 97 Room Air 05/21/24 07:54 05/21/24 12:51 05/21/24 12:51 05/21/24 12:51 05/21/24 12:51 05/21/24 12:51 Const General: cooperative Orientation: alert, awake and oriented x3 Other: Answering appropriately and following commands. Resp Effort & Inspection: normal respiratory effort and able to speak in complete sentences Auscultation: no rales, no rhonchi and no wheezes Cardio Rate: regular rate Rhythm: regular rhythm Heart Sounds: S1 normal and S2 normal GI Inspection: non-distended Palpation: soft, not firm, no guarding and nontender Auscultation: normal bowel sounds Neuro General: patient alert, patient awake, patient oriented x3, moves all extremities, no focal motor deficits and CN's II-XI intact bilaterally Extrem General: no calf tenderness and edema Laterality: bilaterally Severity: 1+ Diagnostic Studies Completed and Pending Studies Pending studies at discharge: 05/19/24 02:47 UA [Urinalysis] Stat 05/19/24 05:30 Body Fluid Culture Stat 05/19/24 13:50 Body Fluid Culture Routine 05/22/24 05:00 Basic Metabolic Panel [CHEM] IN AM Complete Blood Count Auto Diff IN AM 05/23/24 05:00 Basic Metabolic Panel [CHEM] IN AM Complete Blood Count Auto Diff IN AM Vancomycin,Random [TOX] IN AM 05/24/24 05:00 Basic Metabolic Panel [CHEM] IN AM Complete Blood Count Auto Diff IN AM 05/25/24 05:00 Basic Metabolic Panel [CHEM] IN AM Complete Blood Count Auto Diff IN AM 05/26/24 05:00 Basic Metabolic Panel [CHEM] IN AM Complete Blood Count Auto Diff IN AM 05/27/24 05:00 Basic Metabolic Panel [CHEM] IN AM Complete Blood Count Auto Diff IN AM 05/28/24 05:00 Basic Metabolic Panel [CHEM] IN AM Complete Blood Count Auto Diff IN AM 05/29/24 05:00 Basic Metabolic Panel [CHEM] IN AM Complete Blood Count Auto Diff IN AM Preliminary micro results at discharge 05/19/24 13:50 Anaerobic Culture - Preliminary Peritoneal Fluid No Anaerobes Isolated 2 Days 05/19/24 05:30 Anaerobic Culture - Preliminary Peritoneal Fluid No Anaerobes Isolated 2 Days Labs on day of discharge: 05/21/24 07:27: Corrected WBC 5.4, Uncorrected WBC Count 5.4, RBC 3.05 L, Hgb 9.2 L, Hct 27.7 L, MCV 91.0, MCH 30.3, MCHC 33.3, RDW 18.7 H, Plt Count 276, MPV 8.0, Neut % (Auto) 69.0, Lymph % (Auto) 11.3, [place] % (Auto) 16.0, Eos % (Auto) 3.2, Baso % (Auto) 0.5, Nucleat RBC Rel Count 0.2, Neut # (Auto) 3.7, Lymph # (Auto) 0.6 L, [place] # (Auto) 0.9 H, Eos # (Auto) 0.2, Baso # (Auto) 0.0, PHA Creatinine Clear 6.93, Sodium 129 L, Potassium 3.0 L, Chloride 91 L, Carbon Dioxide 26.3, Anion Gap 14.7, BUN 48 H, Creatinine 14.37 H, Est GFR (CKD-EPI) 3.286, Glucose 119 H, Calcium 7.8 L 05/21/24 05:06: Random Vancomycin 8.7 Documented By: Nicolas Man MD 05/21/24 1356 Signed By: <Electronically signed by Nicolas Man MD> 05/21/[address] [facility] Work Phone: 1(181) 214-759407-30-2024 Progress note Author Reece YooKindred Healthcare May 21, 2024 1:39pmNote Date/TimeJuly 2023 1:39pmSharon Ville [id number] Nephrology Progress Note Signed Patient: Luis Chong III MR#: [id number] : 1955 Acct:[id number] Age/Sex: 69 / M Adm Date: 4 Loc: Room: 9R9770-5 Type: ADM IN Attending Dr: Nicolas Man MD Copies to: ~ Date of Service: 05/21/2024 Subjective Subjective Narrative: This is a 69-year-old male with medical history of ESRD on CCPD, HTN, HFpEF, anemia and secondary hyperparathyroidism was sent from the half-way due to the malfunctioning PD catheter. He has a ESRD due to the hypertensive nephrosclerosis and partial nephrectomy due to the renal cell carcinoma and was initiated on peritoneal dialysis in June 2023. Patient on evaluation in emergency room was found to have a leukocytosis. I was counseled by the ER physician recommended to get x-ray KUB and send the PD fluid for cell count and Gram stain culture sensitivity. He denied any abdominal symptoms and PD fluid showed elevated nucleated cell count. He was also given empiric antibiotic. Hewas also found to have hypokalemia and was given oral potassium. His x-ray KUB showed PD catheter possibly in the right quadrant. Patient was seen and examined bedside and he reported that was doing CCPD but the machine was beeping. They they called the [facility] and arsenio RN and was advised to go to the emergency room due to the malfunctioning catheter. Interim history Patient was seen and examined in his room. PD fluid drain currently has resolved with adding heparin PD culture is negative. patient remains on meropenem and vancomycin . Patient is insisting on going home today. He has no complaint. Patient was seen while PD fluid is draining. PD fluid is slightly blood-tinged from heparin No abdominal pain. No nausea no vomiting. No fever Exam Physical Exam Vital Signs: Temp Pulse Resp BP Pulse Ox O2 Del Method 98.1 F 81 20 135/73 97 Room Air 05/21/24 07:54 05/21/24 12:51 05/21/24 12:51 05/21/24 12:51 05/21/24 12:51 05/21/24 12:51 Narrative: General: No acute distress Head :atraumatic normocephalic Eyes: PERRLA. Neck: no JVD no bruit. Heart: S1-S2. RRR Respiratory: Clear to auscultation. No wheezing. No crackles Abdomen: Soft, positive bowel sounds,no tenderness. Neurology: Awake alert oriented x3. No focal deficits Extremity. No cyanosis. No edema Skin: No skin rash Objective Intake and Output I&O: Intake & Output 05/18/24 05/19/24 05/20/24 05/21/24 23:59 23:59 23:59 23:59 Intake Total 4650 / 4650 65720 / 67119 4540 / 4540 Output Total 3700 / 5700 00230 / 87457 8500 / 8500 Balance 950 / -1050 2420 / 2420 -3960 / -3960 Weight 296 lb 312 lb 9.848 oz 305 lb 8.971 oz 308 lb 13.882 oz Meds and Allergies Meds: Active Medications Acetaminophen (Acetaminophen 325 Mg Tablet) 650 mg PO Q6HR PRN PRN Reason: Pain Scale 1 - 3 or fever Stop: 05/19/25 05:51 Albuterol (Albuterol Neb 2.5 Mg/3 Ml Vial.Neb) 2.5 mg INHALATION Q4HR PRN PRN Reason: Shortness of breath Stop: 05/19/25 17:59 Atorvastatin Calcium (Atorvastatin 80 Mg Tablet) 80 mg PO QHS RYAN Stop: 05/19/25 21:59 Last Admin: 05/20/24 21:31 Dose: 80 mg Brimonidine Tartrate (Brimonidine 0.2% Op Soln 100 Drops/5 Ml Bottle) 1 drops EYE-BOTH BID RYAN Stop: 05/19/25 20:59 Last Admin: 05/21/24 10:10 Dose: 1 drops Calcitriol (Calcitriol 0.5 Mcg Capsule) 0.5 mcg PO QAM RYAN Stop: 05/20/25 08:59 Last Admin: 05/21/24 10:08 Dose: 0.5 mcg Dorzolamide HCl (Dorzolamide 2% Op Soln 200 Drops/10 Ml Bottle) 1 drops EYE-BOTH BID RYAN Stop: 05/19/25 20:59 Last Admin: 05/21/24 10:11 Dose: 1 drops Furosemide (Furosemide 80 Mg Tablet) 80 mg PO BID@0800,1600 RYAN Stop: 05/19/25 15:59 Last Admin: 05/21/24 10:17 Dose: 80 mg Gabapentin (Gabapentin 300 Mg Capsule) 300 mg PO QHS RYAN Stop: 05/19/25 21:59 Last Admin: 05/20/24 21:31 Dose: 300 mg Gentamicin Sulfate (Gentamicin 0.1% Cream 15 Gm Tube) 1 applic TOPICAL DAILY RYAN Stop: 05/20/25 08:59 Last Admin: 05/21/24 10:09 Dose: 1 applic Guaifenesin (Guaifenesin 600 Mg Tab.Er.12h) 600 mg PO BID PRN PRN Reason: Congestion Stop: 05/19/25 22:10 Last Admin: 05/20/24 22:09 Dose: 600 mg Heparin Sodium (Porcine) (Heparin 5,000 Unit/Ml Vial) 5,000 unit SUBCUT Q12HR RYAN Stop: 05/19/25 08:59 Last Admin: 05/21/24 10:09 Dose: Not Given Heparin Sodium (Porcine) (Heparin 1,000 Unit/Ml) 1,000 unit INTRAPERIT Q4H RYAN Stop: 05/20/25 13:14 Last Admin: 05/21/24 13:13 Dose: 1,000 unit Meropenem (Merrem) 0.5 gm in 100 mls @ 200 mls/hr IV Q24H RYAN Last Admin: 05/21/24 05:51 Dose: 200 mls/hr Latanoprost (Latanoprost 0.005% Op Soln 50 Drops/2.5 Ml Bottle) 1 drops EYE-LEFT HS RYAN Stop: 05/19/25 21:59 Last Admin: 05/20/24 21:35 Dose: 1 drops Pantoprazole Sodium (Pantoprazole 40 Mg Tablet.Dr) 40 mg PO BID RYAN Stop: 05/20/25 08:59 Last Admin: 05/21/24 10:09 Dose: 40 mg Pilocarpine HCl (Pilocarpine 2% Op Soln 300 Drops/15 Ml Bottle) 1 drops EYE-LEFT BID RYAN Stop: 05/19/25 20:59 Last Admin: 05/21/24 10:11 Dose: 1 drops Potassium Chloride (Potassium Chloride Er 20 Meq Tab.Er.Prt) 20 meq PO DAILY RYAN Stop: 05/20/25 13:29 Last Admin: 05/21/24 10:09 Dose: 20 meq Saccharomyces Boulardii (Saccharomyces Boulardii 250 Mg Capsule) 250 mg PO BID.WITH.MEALS RYAN Stop: 05/19/25 07:59 Last Admin: 05/21/24 10:17 Dose: 250 mg Sevelamer Carbonate (Sevelamer Carbonate 800 Mg Tablet) 800 mg PO TID.WITH.MEALS RYAN Stop: 05/19/25 11:59 Last Admin: 05/21/24 12:44 Dose: 800 mg Sodium Chloride (Sodium Chloride 0.9 % 10 Ml Syringe) 0 ml IV-PUSH PRN PRN PRN Reason: Flush Stop: 05/18/25 22:09 Last Admin: 05/21/24 05:51 Dose: 10 ml Timolol Maleate (Timolol Mal 0.5% Op Soln 100 Drops/5 Ml Bottle) 1 drops EYE- BOTH BID RYAN Stop: 05/19/25 20:59 Last Admin: 05/21/24 10:11 Dose: 1 drops Vancomycin HCl (Vancomycin - Pharmacy Dosing 1 Each Miscell) 1 each IV ONCE PRN; Protocol PRN Reason: ZZ.Pharmacy Consult Verapamil HCl (Verapamil Er (Sr) 240 Mg Tablet.Er) 240 mg PO DAILY RYAN Stop: 05/20/25 08:59 Last Admin: 05/21/24 10:09 Dose: 240 mg Allergies cephalexin [From Keflex] Allergy (Unknown, Verified 05/18/24 22:11) Itching Results - Nephrology Labs 05/21/24 07:27 05/21/24 07:27 Labs: 05/21/24 07:27 BUN 48 H Creatinine 14.37 H Radiology Impressions Impressions - last 24 hours: Any impression(s) listed above is documentation that was entered by the reading physician into a diagnostic report(s) for Luis Chong III. I have reviewed the report(s) and am incorporating any findings in the treatment plan of this patient where applicable. A&P - Nephrology Assessment/Plan (1) Peritoneal dialysis catheter dysfunction: Assessment/Problem Details: Patient presented with dysfunction of the PD catheter. His KUB showed catheter likely in the right lower quadrant. (2) End-stage renal disease on peritoneal dialysis: Assessment/Problem Details: He has a ESRD due to the hypertensive nephrosclerosis and partial nephrectomy for renal cell carcinoma. He is currently on CCPD and follows with Dr. Winchester. (3) Hypokalemia: Assessment/Problem Details: Patient was found to have hypokalemia likely due to the PD and diuretic induced renal magnesium wasting (4) Leukocytosis: Assessment/Problem Details: He has leukocytosis possibly due to the peritonitis. His peritoneal fluid nucleated count is greater than 100. (5) Anemia of renal disease: Assessment/Problem Details: Is hemoglobin is below the goal. He receives Mircera outpatient. (6) Hypertensive chronic kidney disease with stage 5 chronic kidney disease or end stage renal disease: Assessment/Problem Details: Blood pressure is better controlled (7) (HFpEF) heart failure with preserved ejection fraction: Assessment/Problem Details: He appears to be well compensated although chest x-ray showed possible pulm edema. Currently does not requiring any oxygen. Plan * Will continue same PD fluid prescription for exchange every 4 hours with heparin. Will continue same PD dextrose concentration. * I will stop empiric antibiotics. PD fluid culture is negative so far * Continue KCl 20 mg p.o. daily * Continue home dose of the sevelamer. * Continue home dose of ramipril and Lasix. * Check CBC along with renal function panel in a.m. Patient can be discharged from nephrology standpoint off antibiotics Documented By: Reece Rodriguez MD 05/21/241335 Signed By: <Electronically signed by Reece Rodriguez MD> 05/21/249 [facility] Work Phone: 1(110) 478-761607-29-2024 Progress note Author Nicolas Man [facility] May 20, 2024 1:13pmNote Date/TimeJuly 2023 1:13pm[place] [address] Hospitalist Progress Note Signed Patient: Luis Chong III MR#: [id number] : 1955 Acct:[id number] Age/Sex: 69 / M Adm Date: 4 Loc: Room: [address] [place] [address] Type: ADM IN Attending Dr: Nicolas Man MD Copies to: ~ Date of Service: 05/20/2024 Subjective Subjective Narrative: On examination patient sitting on chair with no overnight event. Currently denies any complaint including abdominal pain. His peritoneal dialysis catheterhas been functioning well. Exam Physical Exam Vital Signs: Temp Pulse Resp BP Pulse Ox O2 Del Method 99.0 F 81 18 149/72 H 94 L Room Air 05/19/24 20:00 05/20/24 04:00 05/20/24 04:00 05/20/24 04:00 05/20/24 04:00 05/20/24 04:00 Const General: cooperative Orientation: alert and awake Other: Answering appropriately and following commands. Resp Effort & Inspection: normal respiratory effort and able to speak in complete sentences Auscultation: no rales, no rhonchi and no wheezes Cardio Rate: regular rate Rhythm: regular rhythm Heart Sounds: S1 normal and S2 normal GI Palpation: soft, not firm, no guarding and nontender Neuro General: patient alert, patient awake, moves all extremities, no focal motor deficits and CN's II-XI intact bilaterally Extrem General: no calf tenderness and edema Laterality: bilaterally Severity: 1+ Objective Lab Results 05/20/24 06:34 05/20/24 06:34 Microbiology Results Microbiology 05/19/24 13:50 Peritoneal Fluid Aerobic Culture - Preliminary No Growth 1 Day 05/19/24 13:50 Peritoneal Fluid Anaerobic Culture - Preliminary No Anaerobes Isolated 1 Day 05/19/24 13:50 Peritoneal Fluid Gram Stain - Final 05/19/24 05:30 Peritoneal Fluid Aerobic Culture - Preliminary No Growth 1 Day 05/19/24 05:30 Peritoneal Fluid Anaerobic Culture - Preliminary No Anaerobes Isolated 1 Day 05/19/24 05:30 Peritoneal Fluid Gram Stain - Final Meds Allergies and Active Meds Allergies cephalexin [From Keflex] Allergy (Unknown, Verified 05/18/24 22:11) Itching Active Meds: Active Medications Generic Name Dose Route Start Last Admin Trade Name Freq PRN Reason Stop Dose Admin Acetaminophen 650 mg 05/19/24 05:52 Acetaminophen 325 Mg Tablet PO 05/19/25 05:51 Q6HR PRN Pain Scale 1 - 3 or fever Albuterol 2.5 mg 05/19/24 14:57 Albuterol Neb 2.5 Mg/3 Ml Vial.Neb INHALATION 05/19/25 17:59 Q4HR PRN Shortness of breath Atorvastatin Calcium 80 mg 05/19/24 22:00 05/19/24 21:40 Atorvastatin 80 Mg Tablet PO 05/19/25 21:59 80 mg QHS RYAN Administration Brimonidine Tartrate 1 drops 05/19/24 21:00 05/20/24 10:18 Brimonidine 0.2% Op Soln 100 Drops/5 Ml Bottle EYE-BOTH 05/19/25 20:59 Not Given BID RYAN Calcitriol 0.5 mcg 05/20/24 09:00 05/20/24 10:16 Calcitriol 0.5 Mcg Capsule PO 05/20/25 08:59 0.5 mcg QAM RYAN Administration Dorzolamide HCl 1 drops 05/19/24 21:00 05/20/24 10:17 Dorzolamide 2% Op Soln 200 Drops/10 Ml Bottle EYE-BOTH 05/19/25 20:59 1 drops BID RYAN Administration Furosemide 80 mg 05/19/24 16:00 05/20/24 10:16 Furosemide 80 Mg Tablet PO 05/19/25 15:59 80 mg BID@0800,1600 RYAN Administration Gabapentin 300 mg 05/19/24 22:00 05/19/24 21:40 Gabapentin 300 Mg Capsule PO 05/19/25 21:59 300 mg QHS RYAN Administration Gentamicin Sulfate 1 applic 05/20/24 09:00 05/20/24 10:17 Gentamicin 0.1% Cream 15 Gm Tube TOPICAL 05/20/25 08:59 1 applic DAILY RYAN Administration Guaifenesin 600 mg 05/19/24 22:11 05/19/24 22:50 Guaifenesin 600 Mg Tab.Er.12h PO 05/19/25 22:10 600 mg BID PRN Administration Congestion Heparin Sodium (Porcine) 5,000 unit 05/19/24 09:00 05/20/24 10:17 Heparin 5,000 Unit/Ml Vial SUBCUT 05/19/25 08:59 5,000 unit Q12HR RYAN Administration Heparin Sodium (Porcine) 1,000 unit 05/20/24 13:01 Heparin 1,000 Unit/Ml INTRAPERIT 05/20/25 12:02 PRN PRN Fibrin Clot Meropenem 0.5 gm in 100 mls @ 200 mls/hr 05/20/24 06:00 05/20/24 05:06 Merrem IV 200 mls/hr Q24H RYAN Administration Latanoprost 1 drops 05/19/24 22:00 05/19/24 21:35 Latanoprost 0.005% Op Soln 50 Drops/2.5 Ml Bottle EYE-LEFT 05/19/25 21:59 1drops HS RYAN Administration Pantoprazole Sodium 40 mg 05/20/24 09:00 05/20/24 10:16 Pantoprazole 40 Mg Tablet. PO 05/20/25 08:59 40 mg BID RYAN Administration Pilocarpine HCl 1 drops 05/19/24 21:00 05/20/24 10:17 Pilocarpine 2% Op Soln 300 Drops/15 Ml Bottle EYE-LEFT 05/19/25 20:59 1 drops BID RYAN Administration Saccharomyces Boulardii 250 mg 05/19/24 08:00 05/20/24 10:16 Saccharomyces Boulardii 250 Mg Capsule PO 05/19/25 07:59 250 mg BID.WITH.MEALS RYAN Administration Sevelamer Carbonate 800 mg 05/19/24 12:00 05/20/24 10:16 Sevelamer Carbonate 800 Mg Tablet PO 05/19/25 11:59 800 mg TID.WITH.MEALS RYAN Administration Sodium Chloride 0 ml 05/18/24 22:10 05/20/24 05:11 Sodium Chloride 0.9 % 10 Ml Syringe IV-PUSH 05/18/25 22:09 10 ml PRN PRN Administration Flush Timolol Maleate 1 drops 05/19/24 21:00 05/20/24 10:17 Timolol Mal 0.5% Op Soln 100 Drops/5 Ml Bottle EYE-BOTH 05/19/25 20:59 1 drops BID RYAN Administration Vancomycin HCl 1 each 05/19/24 05:52 Vancomycin - Pharmacy Dosing 1 Each Miscell IV ONCE PRN ZZ.Pharmacy Consult Protocol Verapamil HCl 240 mg 05/20/24 09:00 05/20/24 10:16 Verapamil Er (Sr) 240 Mg Tablet.Er PO 05/20/25 08:59 240 mg DAILY RYAN Administration A&P - Hospitalist Assessment/Plan (1) Peritoneal dialysis catheter dysfunction: (2) Leukocytosis: (3) Volume overload: (4) End-stage renal disease on peritoneal dialysis: (5) Hypokalemia: Plan Patient seen by nephrology and general surgery services. Peritoneal dialysis catheter has been functioning well after getting heparin. He might require laparoscopic revision/repositioning of the catheter if malfunctions. Currently on empiric antibiotic with no growth on peritoneal cultures so far. Defer further management regarding peritoneal fluid and infection to nephrology service. Continue statin, eyedrops, gabapentin, verapamil and subcutaneous heparin for DVT prophylaxis. Documented By: Nicolas Man MD 05/20/241309 Signed By: <Electronically signed by Nicolas Man MD> 05/20/24 [address] [facility] Work Phone: 1(925) 905-603807-29-2024 Progress note Author Reece Ju[facility]WV[facility] May 20, 2024 1:00pmNote Date/TimeJuly 2023 1:00pm[place] [id number] Nephrology Progress Note Signed Patient: Luis Chong III MR#: [id number] : 1955 Acct:[id number] Age/Sex: 69 / M Adm Date: 4 Loc: Room: [address] [place] [address] Type: ADM IN Attending Dr: Nicolas Mna MD Copies to: ~ Date of Service: 05/20/2024 Subjective Subjective Narrative: This is a 69-year-old male with medical history of ESRD on CCPD, HTN, HFpEF, anemia and secondary hyperparathyroidism was sent from the half-way due to the malfunctioning PD catheter. He has a ESRD due to the hypertensive nephrosclerosis and partial nephrectomy due to the renal cell carcinoma and was initiated on peritoneal dialysis in June 2023. Patient on evaluation in emergency room was found to have a leukocytosis. I was counseled by the ER physician recommended to get x-ray KUB and send the PD fluid for cell count and Gram stain culture sensitivity. He denied any abdominal symptoms and PD fluid showed elevated nucleated cell count. He was also given empiric antibiotic. Hewas also found to have hypokalemia and was given oral potassium. His x-ray KUB showed PD catheter possibly in the right quadrant. Patient was seen and examined bedside and he reported that was doing CCPD but the machine was beeping. They they called the [facility] and overnight RN and was advised to go to the emergency room due to the malfunctioning catheter. Interim history Patient was seen and examined in his room. PD fluid drain has improved but still have difficulties. PD culture is still pending. Patient remains on meropenem and vancomycin for possible peritonitis. White cell count is down to 5.0. Hemoglobin is relatively stable at 8.8 g deciliter. Serum sodium level is better 131 mmol/L. BUN 50 and creatinine 14 Patient sleeping on the chair. He did not sleep well last night denied worsening breathing. No chest pain. No nausea no vomiting Exam Physical Exam Vital Signs: Temp Pulse Resp BP Pulse Ox O2 Del Method 99.0 F 81 18 149/72 H 94 L Room Air 05/19/24 20:00 05/20/24 04:00 05/20/24 04:00 05/20/24 04:00 05/20/24 04:00 05/20/24 04:00 Narrative: General: No acute distress Head :atraumatic normocephalic Eyes: PERRLA. Neck: no JVD no bruit. Heart: S1-S2. RRR Respiratory: Clear to auscultation. No wheezing. No crackles Abdomen: Soft, positive bowel sounds,no tenderness. Neurology: Awake alert oriented x3. No focal deficits Extremity. No cyanosis. No edema Skin: No skin rash Objective Intake and Output I&O: Intake & Output 05/17/24 05/18/24 05/19/24 05/20/24 23:59 23:59 23:59 23:59 Intake Total 4650 / 4650 4120 / 4120 Output Total 3700 / 5700 4000 / 4000 Balance 950 / -1050 120 / 120 Weight 296 lb 312 lb 9.848 oz 305 lb 8.971 oz Meds and Allergies Meds: Active Medications Acetaminophen (Acetaminophen 325 Mg Tablet) 650 mg PO Q6HR PRN PRN Reason: Pain Scale 1 - 3 or fever Stop: 05/19/25 05:51 Albuterol (Albuterol Neb 2.5 Mg/3 Ml Vial.Neb) 2.5 mg INHALATION Q4HR PRN PRN Reason: Shortness of breath Stop: 05/19/25 17:59 Atorvastatin Calcium (Atorvastatin 80 Mg Tablet) 80 mg PO QHS [facility] Stop: 05/19/25 21:59 Last Admin: 05/19/24 21:40 Dose: 80 mg Brimonidine Tartrate (Brimonidine 0.2% Op Soln 100 Drops/5 Ml Bottle) 1 drops EYE-BOTH BID [facility] Stop: 05/19/25 20:59 Last Admin: 05/20/24 10:18 Dose: Not Given Calcitriol (Calcitriol 0.5 Mcg Capsule) 0.5 mcg PO QAM RYAN Stop: 05/20/25 08:59 Last Admin: 05/20/24 10:16 Dose: 0.5 mcg Dorzolamide HCl (Dorzolamide 2% Op Soln 200 Drops/10 Ml Bottle) 1 drops EYE-BOTH BID RYAN Stop: 05/19/25 20:59 Last Admin: 05/20/24 10:17 Dose: 1 drops Furosemide (Furosemide 80 Mg Tablet) 80 mg PO BID@0800,1600 RYAN Stop: 05/19/25 15:59 Last Admin: 05/20/24 10:16 Dose: 80 mg Gabapentin (Gabapentin 300 Mg Capsule) 300 mg PO QHS RYAN Stop: 05/19/25 21:59 Last Admin: 05/19/24 21:40 Dose: 300 mg Gentamicin Sulfate (Gentamicin 0.1% Cream 15 Gm Tube) 1 applic TOPICAL DAILY RYAN Stop: 05/20/25 08:59 Last Admin: 05/20/24 10:17 Dose: 1 applic Guaifenesin (Guaifenesin 600 Mg Tab.Er.12h) 600 mg PO BID PRN PRN Reason: Congestion Stop: 05/19/25 22:10 Last Admin: 05/19/24 22:50 Dose: 600 mg Heparin Sodium (Porcine) (Heparin 5,000 Unit/Ml Vial) 5,000 unit SUBCUT Q12HR RYAN Stop: 05/19/25 08:59 Last Admin: 05/20/24 10:17 Dose: 5,000 unit Heparin Sodium (Porcine) (Heparin 1,000 Unit/Ml) 1,000 unit INTRAPERIT PRN PRN PRN Reason: Fibrin Clot Stop: 05/20/25 12:02 Meropenem (Merrem) 0.5 gm in 100 mls @ 200 mls/hr IV Q24H RYAN Last Admin: 05/20/24 05:06 Dose: 200 mls/hr Latanoprost (Latanoprost 0.005% Op Soln 50 Drops/2.5 Ml Bottle) 1 drops EYE-LEFT HS RYAN Stop: 05/19/25 21:59 Last Admin: 05/19/24 21:35 Dose: 1 drops Pantoprazole Sodium (Pantoprazole 40 Mg Tablet.Dr) 40 mg PO BID RYAN Stop: 05/20/25 08:59 Last Admin: 05/20/24 10:16 Dose: 40 mg Pilocarpine HCl (Pilocarpine 2% Op Soln 300 Drops/15 Ml Bottle) 1 drops EYE-LEFT BID RYAN Stop: 05/19/25 20:59 Last Admin: 05/20/24 10:17 Dose: 1 drops Saccharomyces Boulardii (Saccharomyces Boulardii 250 Mg Capsule) 250 mg PO BID.WITH.MEALS RYAN Stop: 05/19/25 07:59 Last Admin: 05/20/24 10:16 Dose: 250 mg Sevelamer Carbonate (Sevelamer Carbonate 800 Mg Tablet) 800 mg PO TID.WITH.MEALS RYAN Stop: 05/19/25 11:59 Last Admin: 05/20/24 10:16 Dose: 800 mg Sodium Chloride (Sodium Chloride 0.9 % 10 Ml Syringe) 0 ml IV-PUSH PRN PRN PRN Reason: Flush Stop: 05/18/25 22:09 Last Admin: 05/20/24 05:11 Dose: 10 ml Timolol Maleate (Timolol Mal 0.5% Op Soln 100 Drops/5 Ml Bottle) 1 drops EYE- BOTH BID RYAN Stop: 05/19/25 20:59 Last Admin: 05/20/24 10:17 Dose: 1 drops Vancomycin HCl (Vancomycin - Pharmacy Dosing 1 Each Miscell) 1 each IV ONCE PRN; Protocol PRN Reason: ZZ.Pharmacy Consult Verapamil HCl (Verapamil Er (Sr) 240 Mg Tablet.Er) 240 mg PO DAILY RYAN Stop: 05/20/25 08:59 Last Admin: 05/20/24 10:16 Dose: 240 mg Allergies cephalexin [From Keflex] Allergy (Unknown, Verified 05/18/24 22:11) Itching Results - Nephrology Labs 05/20/24 06:34 05/20/24 06:34 Labs: 05/20/24 06:34 BUN 50 H Creatinine 14.27 H Radiology Impressions Impressions - last 24 hours: Any impression(s) listed above is documentation that was entered by the reading physician into a diagnostic report(s) for Luis Chong III. I have reviewed the report(s) and am incorporating any findings in the treatment plan of this patient where applicable. A&P - Nephrology Assessment/Plan (1) Peritoneal dialysis catheter dysfunction: Assessment/Problem Details: Patient presented with dysfunction of the PD catheter. His KUB showed catheter likely in the right lower quadrant. (2) End-stage renal disease on peritoneal dialysis: Assessment/Problem Details: He has a ESRD due to the hypertensive nephrosclerosis and partial nephrectomy for renal cell carcinoma. He is currently on CCPD and follows with Dr. Winchester. (3) Hypokalemia: Assessment/Problem Details: Patient was found to have hypokalemia likely due to the PD and diuretic induced renal magnesium wasting (4) Leukocytosis: Assessment/Problem Details: He has leukocytosis possibly due to the peritonitis. His peritoneal fluid nucleated count is greater than 100. (5) Anemia of renal disease: Assessment/Problem Details: Is hemoglobin is below the goal. He receives Mircera outpatient. (6) Hypertensive chronic kidney disease with stage 5 chronic kidney disease or end stage renal disease: Assessment/Problem Details: Blood pressure is better controlled (7) (HFpEF) heart failure with preserved ejection fraction: Assessment/Problem Details: He appears to be well compensated although chest x-ray showed possible pulm edema. Currently does not requiring any oxygen. Plan * Will add 500 units heparin to each liter of PD fluid to help PD fluid draining. Will continue same PD fluid prescription for exchange every 4 hours. Will continue same PD dextrose concentration. * Continue empiric antibiotic for possible peritonitis. Will adjust antibiotics based on the culture results. If PD culture fluid comes out negative then suspicion will be low for peritonitis as he has no abdominal symptoms. * Will start KCl 20 mg p.o. daily * General surgery has been consulted. If PD catheter does not work then he may need replacement of his PD catheter * Continue home dose of the sevelamer. * Continue home dose of ramipril and Lasix. * Check CBC along with renal function panel in a.m. Renal team will continue to follow. Call for any question or concern Documented By: Reece Rodriguez MD 05/20/24 1256 Signed By: <Electronically signed by Reece Rodriguez MD> 05/20/[address] [facility] Work Phone: 1(659) 645-175107-28-2024 Consult note Author Yordan Mora [facility] May 19, 2024 11:58amNote Date/TimeJuly 2023 11:58am[place] [address] General Surgery Consult Note Signed Patient: Luis Chong III MR#: [id number] : 1955 Acct:[id number] Age/Sex: 69 / M Adm Date: 4 Loc: Room: [address] [place] [address] Type: ADM IN Attending Dr: Nicolas Man MD Copies to: MD Angel Luis Velasco MD Mazhar Rahman, MD~ History of Present Illness Date of consult: 05/19/2024 Requesting/Attending Provider: Nicolas Man MD History of present illness: Patient is a 69-year-old male from consultation was made regarding malfunctioning peritoneal dialysis catheter. Patient had peritoneal dialysis catheter placed laparoscopically about a year and a half ago. He had been working well until about 2 days ago. Patient states that the fluid does go in butthere has been some difficulty with draining all of the fluid. Patient denies abdominal pain. He is moving his bowels. Review of Systems Constitutional Constitutional: Denies fever(s) Cardiovascular Cardiovascular: Denies chest pain Respiratory Respiratory: Denies dyspnea Gastrointestinal Gastrointestinal: Denies abdominal pain and Denies constipation [facility] Medical History (HFpEF) heart failure with preserved ejection fraction CVA (cerebral vascular accident) Anemia of renal disease End-stage renal disease on peritoneal dialysis Peritoneal dialysis catheter in place Hutchinson's palsy Gout Glaucoma History of kidney cancer Kidney failure GERD (gastroesophageal reflux disease) Diverticulitis Cluster headache Hyperlipidemia Hypertension Surgical History History of nephrectomy partial, tumor removed History of hernia repair Family History Sister COPD (chronic obstructive pulmonary disease) Brain cancer Sister COPD (chronic obstructive pulmonary disease) Mother CHF (congestive heart failure) Diabetes mellitus, type 2 Kidney failure Grandparent Stroke Father Family/Other Legacy FamHx Problem: 1 SISTER BRAIN TUMOR, AND LUN SISTER COPD Mother Diabetes Hypertension Sister Cancer Legacy FamHx Problem: Diagnosed with Cancer Social History Smoking Status: Never smoker Substance Use Type: None Allergies & Medications Medications and Allergies Allergies cephalexin [From Kef[employer]] Allergy (Unknown, Verified 05/18/24 22:11) Itching Home Medications omeprazole 20 mg capsule,delayed release 40 mg PO QAM 07/14/18 [History Confirmed 05/19/24] allopurinol 100 mg tablet 100 mg PO QAM 09/27/22 [History Confirmed 05/19/24] atorvastatin 80 mg tablet 80 mg PO QHS 09/27/22 [History Confirmed 05/19/24] brimonidine 0.2 % eye drops 1 drp Eye-Both BID 09/27/22 [History Confirmed 05/19/24] calcitriol 0.5 mcg capsule 0.5 mcg PO QAM 09/27/22 [History Confirmed 05/19/24] dorzolamide 2 % eye drops 1 drp Eye-Both BID 09/27/22 [History Confirmed 05/19/24] furosemide 40 mg tablet 80 mg PO BID 09/27/22 [History Confirmed 05/19/24] gabapentin 300 mg capsule 300 mg PO QHS 09/27/22 [History Confirmed 05/19/24] timolol maleate 0.5 % eye drops 1 drp Eye-Both BID 09/27/22 [History Confirmed 05/19/24] latanoprost 0.005 % eye drops 1 drp Eye-Left HS 08/09/23 [History Confirmed 05/19/24] magnesium oxide 400 mg (241.3 mg magnesium) tablet 400 mg PO DAILY 08/09/23 [History Confirmed 05/19/24] pilocarpine HCl 2 % eye drops 1 drp Eye-Left BID 08/09/23 [History Confirmed 05/19/24] polyethylene glycol 3350 17 gram/dose oral powder 17 g PO DAILY 08/09/23 [History Confirmed 05/19/24] sevelamer carbonate 800 mg tablet 800 mg PO TIDWMEAL 08/09/23 [History Confirmed 05/19/24] vitamin B complex-vitamin C 100 mg-folic acid 1 mg tablet (Dialyvite) 1 tab PO DAILY 08/09/23 [History Confirmed 05/19/24] verapamil 240 mg tablet,extended release 240 mg PO DAILY 09/17/23 [History Confirmed 05/19/24] sodium chloride 0.9 % (flush) (Normal Saline Flush 0.9 % injection syringe) 10 ml IV DAILY 42 days #73.5 mL 09/22/23 [Rx Confirmed 05/19/24] sodium chloride 0.9 % (flush) (Normal Saline Flush 0.9 % injection syringe) 10 ml IV DAILY 42 days #840 mL 09/22/23 [Rx Confirmed 05/19/24] Vancomycin - Pharmacy Dosing 1 ea IV ONCE PRN infection 05/19/24 [History Confirmed 05/19/24] acetaminophen 650 mg tablet,extended release (Arthritis Pain Relief (acetaminophen) ER) 650 mg PO Q4HR PRN fever or pain 05/19/24 [History Confirmed 05/19/24] albuterol sulfate 2.5 mg/3 mL (0.083 %) solution for nebulization 2.5 mg continuous nebulization Q4HR PRN shortness of breath or wheezing 05/19/24 [History Confirmed 05/19/24] aluminum-mag hydroxide-simethicone 200 mg-200 mg-20 mg/5 mL oral susp (Mag-Al Plus) 5 ml PO Q4HR PRN indigestion 05/19/24 [History Confirmed 05/19/24] ferrous sulfate 325 mg (65 mg iron) tablet 325 mg PO DAILY 05/19/24 [History Confirmed 05/19/24] gentamicin 0.1 % topical cream 1 applic topical DAILY 05/19/24 [History Confirmed 05/19/24] guaifenesin 100 mg/5 mL oral liquid (Cough Syrup) 200 mg PO Q4HR PRN cough 05/19/24 [History Confirmed 05/19/24] nut.tx.impaired renal fxn,soy 0.09 gram-2 kcal/mL oral liquid ([employer] Renal 2 Jamie) 1 ea PO Q OTHER DAY 05/19/24 [History Confirmed 05/19/24] polyethylene glycol 3350 17 gram/dose oral powder (Miralax) 17 g PO DAILY 05/19/24 [History Confirmed 05/19/24] Active Medications Acetaminophen (Acetaminophen 325 Mg Tablet) 650 mg PO Q6HR PRN PRN Reason: Pain Scale 1 - 3 or fever Stop: 05/19/25 05:51 Atorvastatin Calcium (Atorvastatin 80 Mg Tablet) 80 mg PO QHS RYAN Stop: 05/19/25 21:59 Brimonidine Tartrate (Brimonidine 0.2% Op Soln 100 Drops/5 Ml Bottle) 1 drops EYE-BOTH BID RYAN Stop: 05/19/25 20:59 Calcitriol (Calcitriol 0.5 Mcg Capsule) 0.5 mcg PO QAM RYAN Stop: 05/20/25 08:59 Dorzolamide HCl (Dorzolamide 2% Op Soln 200 Drops/10 Ml Bottle) 1 drops EYE-BOTH BID RYAN Stop: 05/19/25 20:59 Furosemide (Furosemide 80 Mg Tablet) 80 mg PO BID@0800,1600 RYAN Stop: 05/19/25 15:59 Gabapentin (Gabapentin 300 Mg Capsule) 300 mg PO QHS RYAN Stop: 05/19/25 21:59 Gentamicin Sulfate (Gentamicin 0.1% Cream 15 Gm Tube) 1 applic TOPICAL DAILY RYAN Stop: 05/20/25 08:59 Heparin Sodium (Porcine) (Heparin 5,000 Unit/Ml Vial) 5,000 unit SUBCUT Q12HR RYAN Stop: 05/19/25 08:59 Last Admin: 05/19/24 11:01 Dose: Not Given Heparin Sodium (Porcine) (Heparin 1,000 Unit/Ml) 1,000 unit INTRAPERIT ONCE PRN PRN Reason: Fibrin Clot Meropenem (Merrem) 0.5 gm in 100 mls @ 200 mls/hr IV Q24H RYAN Latanoprost (Latanoprost 0.005% Op Soln 50 Drops/2.5 Ml Bottle) 1 drops EYE-LEFT HS RYAN Stop: 05/19/25 21:59 Pantoprazole Sodium (Pantoprazole 40 Mg Tablet.Dr) 40 mg PO BID RYAN Stop: 05/20/25 08:59 Pilocarpine HCl (Pilocarpine 2% Op Soln 300 Drops/15 Ml Bottle) 1 drops EYE-LEFT BID RYAN Stop: 05/19/25 20:59 Saccharomyces Boulardii (Saccharomyces Boulardii 250 Mg Capsule) 250 mg PO BID.WITH.MEALS RYAN Stop: 05/19/25 07:59 Last Admin: 05/19/24 09:46 Dose: Not Given Sevelamer Carbonate (Sevelamer Carbonate 800 Mg Tablet) 800 mg PO TID.WITH.MEALS [facility] Stop: 05/19/25 11:59 Sodium Chloride (Sodium Chloride 0.9 % 10 Ml Syringe) 0 ml IV-PUSH PRN PRN PRN Reason: Flush Stop: 05/18/25 22:09 Last Admin: 05/19/24 06:14 Dose: 10 ml Timolol Maleate (Timolol Mal 0.5% Op Soln 100 Drops/5 Ml Bottle) 1 drops EYE- BOTH BID [facility] Stop: 05/19/25 20:59 Vancomycin HCl (Vancomycin - Pharmacy Dosing 1 Each Miscell) 1 each IV ONCE PRN; Protocol PRN Reason: ZZ.Pharmacy Consult Verapamil HCl (Verapamil Er (Sr) 240 Mg Tablet.Er) 240 mg PO DAILY [facility] Stop: 05/20/25 08:59 Exam Physical Exam Vital Signs: Temp Pulse Resp BP Pulse Ox O2 Del Method 98.1 F 84 16 153/69 H 95 Room Air 05/19/24 10:00 05/19/24 10:00 05/19/24 10:00 05/19/24 10:00 05/19/24 10:00 05/19/24 11:33 Const General: cooperative and no acute distress GI Palpation: soft, no guarding and nontender Other: Peritoneal dialysis catheter in place exiting from the right abdomen. Neuro General: patient alert and patient awake Results - Gen. Surgery Intake and Output 24 hour I&O: Intake & Output 05/18/24 05/19/24 05/19/24 23:59 07:59 15:59 Intake Total 100 / 100 500 / 600 Balance 100 / 100 500 / 600 Weight 134.263 kg 135.2 kg Labs 05/19/24 03:15 05/19/24 10:08 Laboratory Results - last 72 hr 05/19/24 10:08: PHA Creatinine Clear N/A, Sodium 128 L, Potassium 3.0 L, Chloride 90 L, Carbon Dioxide 26.4, Anion Gap 14.6, BUN 50 H, Creatinine 14.69 HD, Est GFR (CKD-EPI) 3.200, Glucose 109 H, Calcium 7.9 L 05/19/24 05:30: Fluid Color Straw, Fluid Appearance Hazy, Fld Supernatant Color Straw, Fluid RBC 1009, Fld Tot Nucleated Cell 124, Fluid Neutrophils % 13, FluidLymphocytes % 72, Fluid Eosinophils 2, Fl Monocyt/Macrophag % 13 05/19/24 03:15: Corrected WBC 15.9 H, Uncorrected WBC Count 18.9 H, RBC 3.10 L, Hgb 9.3 L, Hct 27.8L, MCV 89.6, MCH 30.1, MCHC 33.6, RDW 18.4 H, Plt Count 239,MPV 8.8, Neut % (Auto) 75.7, Lymph % (Auto) 11.9, [place] % (Auto) 10.7, Eos % (Auto) 1.4, Baso % (Auto) 0.3, Nucleat RBC Rel Count 0.6 H, Neut # (Auto) 12.0 H, Lymph # (Auto) 1.9, [place] # (Auto) 1.7 H, Eos # (Auto) 0.2, Baso # (Auto) 0.1,Monocyte Dist Width 23.25 H, Platelet Estimate Normal, Plt Morphology Comment Normal, RBC Morphology N/A, Polychromasia Moderate, Poikilocytosis Slight, Anisocytosis Slight, Tear Drop Cells Slight, Ovalocytes Slight, PHA Creatinine Clear 6.93, Sodium 127 L, Potassium 2.9 L*, Chloride 88 L, Carbon Dioxide 25.8, Anion Gap 16.1 H, BUN 47 H, Creatinine 14.05 H, Est GFR (CKD-EPI) 3.376, Nllksuf162 H, Calcium 8.1 L, Phosphorus 5.3 H, Magnesium 2.0, Total Bilirubin 0.3, AST 43 H, ALT 51, Alkaline Phosphatase 67, Troponin I High Sens 49.5 H, B-Natriuretic Peptide 191.0 H, Total Protein 7.2, Albumin 2.7 L,Globulin 4.5, Albumin/Globulin Ratio 0.6 Microbiology Microbiology - Results from entire visit 05/19/24 05:30 Peritoneal Fluid Gram Stain - Final A&P - General Surgery (1) Peritoneal dialysis catheter dysfunction: Qualifiers: Encounter type: initial encounter Qualified Code(s): T85.611A - Breakdown (mechanical) of intraperitoneal dialysis catheter, initial encounter (2) End-stage renal disease on peritoneal dialysis: Plan Dr. Faustin is trying some manipulations to help the catheter function better. Ifthis is not successful, we can discuss laparoscopic revision/repositioning of the catheter. Documented By: Yordan Mora MD 05/19/24 115 Signed By: <Electronically signed by MD Yordan Mora> 05/19/[address] [facility] Work Phone: [phone]) 273-123307-28-2024 Consult note Author Dom Faustin [facility] May 19, 2024 11:21amNote Date/TimeJuly 2023 11:19[place] [address] Nephrology Consult Note Signed Patient: Luis Chong III MR#: [id number] : 1955 Acct:[id number] Age/Sex: 69 / M Adm Date: 4 Loc: Room: [address] [place] [address] Type: ADM IN Attending Dr: Nicolas Man MD Copies to: MD Angel Luis Wills MD Mazhar Rahman, MD~ Providers Consult Date: 05/19/24 Requesting Provider: Nicolas Man MD Primary Care Provider: Angel Luis Sanches MD HPI Reason for Consult: ESRD management History of Present Illness: This is a 69-year-old male with medical history of ESRD on CCPD, HTN, HFpEF, anemia and secondary hyperparathyroidism was sent from the half-way due to the malfunctioning PD catheter. He has a ESRD due to the hypertensive nephrosclerosis and partial nephrectomy due to the renal cell carcinoma and was initiated on peritoneal dialysis in June 2023. Patient on evaluation in emergency room was found to have a leukocytosis. I was counseled by the ER physician recommended to get x-ray KUB and send the PD fluid for cell count and Gram stain culture sensitivity. He denied any abdominal symptoms and PD fluid showed elevated nucleated cell count. He was also given empiric antibiotic. Hewas also found to have hypokalemia and was given oral potassium. His x-ray KUB showed PD catheter possibly in the right quadrant. Patient was seen and examined bedside and he reported that was doing CCPD but the machine was beeping. They they called the Mackey and arsenio RN and was advised to go to the emergency room due to the malfunctioning catheter. Review of Systems Review of Systems All other systems reviewed & are negative unless noted below or in HPI Review of systems: Cardiovascular: denies any chest pain, palpitation Pulmonary: denies any cough, hemoptysis Gastrointestinal: denies any nausea, vomiting, diarrhea Neurological :denies any headache, numbness, weakness Endocrine: denies any polyuria, polydipsia Dermatological: denies any itching or rash [facility] Medical History (HFpEF) heart failure with preserved ejection fraction CVA (cerebral vascular accident) Anemia of renal disease End-stage renal disease on peritoneal dialysis Peritoneal dialysis catheter in place Hutchinson's palsy Gout Glaucoma History of kidney cancer Kidney failure GERD (gastroesophageal reflux disease) Diverticulitis Cluster headache Hyperlipidemia Hypertension Surgical History History of nephrectomy partial, tumor removed History of hernia repair Family History Sister COPD (chronic obstructive pulmonary disease) Brain cancer Sister COPD (chronic obstructive pulmonary disease) Mother CHF (congestive heart failure) Diabetes mellitus, type 2 Kidney failure Grandparent Stroke Father Family/Other Legacy FamHx Problem: 1 SISTER BRAIN TUMOR, AND LUN SISTER COPD Mother Diabetes Hypertension Sister Cancer Legacy FamHx Problem: Diagnosed with Cancer Social History Smoking Status: Never smoker Substance Use Type: None Meds Medications & Allergies Allergies cephalexin [From [employer]] Allergy (Unknown, Verified 05/18/24 22:11) Itching Home Medications omeprazole 20 mg capsule,delayed release 40 mg PO QAM 07/14/18 [History Confirmed 05/19/24] allopurinol 100 mg tablet 100 mg PO QAM 09/27/22 [History Confirmed 05/19/24] atorvastatin 80 mg tablet 80 mg PO QHS 09/27/22 [History Confirmed 05/19/24] brimonidine 0.2 % eye drops 1 drp Eye-Both BID 09/27/22 [History Confirmed 05/19/24] calcitriol 0.5 mcg capsule 0.5 mcg PO QAM 09/27/22 [History Confirmed 05/19/24] dorzolamide 2 % eye drops 1 drp Eye-Both BID 09/27/22 [History Confirmed 05/19/24] furosemide 40 mg tablet 80 mg PO BID 09/27/22 [History Confirmed 05/19/24] gabapentin 300 mg capsule 300 mg PO QHS 09/27/22 [History Confirmed 05/19/24] timolol maleate 0.5 % eye drops 1 drp Eye-Both BID 09/27/22 [History Confirmed 05/19/24] latanoprost 0.005 % eye drops 1 drp Eye-Left HS 08/09/23 [History Confirmed 05/19/24] magnesium oxide 400 mg (241.3 mg magnesium) tablet 400 mg PO DAILY 08/09/23 [History Confirmed 05/19/24] pilocarpine HCl 2 % eye drops 1 drp Eye-Left BID 08/09/23 [History Confirmed 05/19/24] polyethylene glycol 3350 17 gram/dose oral powder 17 g PO DAILY 08/09/23 [History Confirmed 05/19/24] sevelamer carbonate 800 mg tablet 800 mg PO TIDWMEAL 08/09/23 [History Confirmed 05/19/24] vitamin B complex-vitamin C 100 mg-folic acid 1 mg tablet (Dialyvite) 1 tab PO DAILY 08/09/23 [History Confirmed 05/19/24] verapamil 240 mg tablet,extended release 240 mg PO DAILY 09/17/23 [History Confirmed 05/19/24] sodium chloride 0.9 % (flush) (Normal Saline Flush 0.9 % injection syringe) 10 ml IV DAILY 42 days #73.5 mL 09/22/23 [Rx Confirmed 05/19/24] sodium chloride 0.9 % (flush) (Normal Saline Flush 0.9 % injection syringe) 10 ml IV DAILY 42 days #840 mL 09/22/23 [Rx Confirmed 05/19/24] Vancomycin - Pharmacy Dosing 1 ea IV ONCE PRN infection 05/19/24 [History Confirmed 05/19/24] acetaminophen 650 mg tablet,extended release (Arthritis Pain Relief (acetaminophen) ER) 650 mg PO Q4HR PRN fever or pain 05/19/24 [History Confirmed 05/19/24] albuterol sulfate 2.5 mg/3 mL (0.083 %) solution for nebulization 2.5 mg continuous nebulization Q4HR PRN shortness of breath or wheezing 05/19/24 [History Confirmed 05/19/24] aluminum-mag hydroxide-simethicone 200 mg-200 mg-20 mg/5 mL oral susp (Mag-Al Plus) 5 ml PO Q4HR PRN indigestion 05/19/24 [History Confirmed 05/19/24] ferrous sulfate 325 mg (65 mg iron) tablet 325 mg PO DAILY 05/19/24 [History Confirmed 05/19/24] gentamicin 0.1 % topical cream 1 applic topical DAILY 05/19/24 [History Confirmed 05/19/24] guaifenesin 100 mg/5 mL oral liquid (Cough Syrup) 200 mg PO Q4HR PRN cough 05/19/24 [History Confirmed 05/19/24] nut.tx.impaired renal fxn,soy 0.09 gram-2 kcal/mL oral liquid ([employer] Renal 2 Jamie) 1 ea PO Q OTHER DAY 05/19/24 [History Confirmed 05/19/24] polyethylene glycol 3350 17 gram/dose oral powder (Miralax) 17 g PO DAILY 05/19/24 [History Confirmed 05/19/24] Active Medications: Active Medications Acetaminophen (Acetaminophen 325 Mg Tablet) 650 mg PO Q6HR PRN PRN Reason: Pain Scale 1 - 3 or fever Stop: 05/19/25 05:51 Heparin Sodium (Porcine) (Heparin 5,000 Unit/Ml Vial) 5,000 unit SUBCUT Q12HR RYAN Stop: 05/19/25 08:59 Meropenem (Merrem) 0.5 gm in 100 mls @ 200 mls/hr IV Q24H RYAN Saccharomyces Boulardii (Saccharomyces Boulardii 250 Mg Capsule) 250 mg PO BID.WITH.MEALS RYAN Stop: 05/19/25 07:59 Last Admin: 05/19/24 09:46 Dose: Not Given Sodium Chloride (Sodium Chloride 0.9 % 10 Ml Syringe) 0 ml IV-PUSH PRN PRN PRN Reason: Flush Stop: 05/18/25 22:09 Last Admin: 05/19/24 06:14 Dose: 10 ml Vancomycin HCl (Vancomycin - Pharmacy Dosing 1 Each Miscell) 1 each IV ONCE PRN; Protocol PRN Reason: ZZ.Pharmacy Consult Exam Physical Exam Vital Signs: Temp Pulse Resp BP Pulse Ox O2 Del Method 98.1 F 84 16 153/69 H 95 Room Air 05/19/24 10:00 05/19/24 10:00 05/19/24 10:00 05/19/24 10:00 05/19/24 10:00 05/19/24 10:31 Narrative: General: Appears comfortable and not in distress Heart: S1-S2, no rub Lung: Bilateral air entry, no wheezing or crackles Abdomen: Soft, positive bowel sounds Extremities: No edema, no cyanosis Head: Atraumatic, normocephalic Ear: No gross hearing Deficit or external ear redness Eyes: No pallor or redness Neck: No JVD or visible mass Skin: No rashes , warm to touch [employer]: Awake,Alert, following simple command Musculoskeletal: No swelling or limitation of movement of the large joints Psychiatric: Cooperative, normal mood and affect Results - Nephrology Labs 05/19/24 03:15 05/19/24 03:15 Labs: 05/19/24 03:15 BUN 47 H Creatinine 14.05 H Phosphorus 5.3 H Albumin 2.7 L Radiology Impressions Impressions - last 24 hours: Impressions Chest X-Ray 05/19/24 02:48 IMPRESSION: VASCULAR CONGESTION SUGGESTING FLUID OVERLOAD. NO CONSOLIDATION TO SUGGEST PNEUMONIA. Impression dictated by: Mehran Eldridge Jr., D.O.05/19/2024 9:23 AM Dictation Location: [place] [address] KUB X-Ray 05/19/24 08:33 IMPRESSION: NO DEFINITE ACUTE PROCESS IS SEEN. Impression dictated by: Mehran Eldridge Jr., D.O.05/19/2024 9:22 AM Dictation Location: [place] [address] Any impression(s) listed above is documentation that was entered by the reading physician into a diagnostic report(s) for Luis Chong III. I have reviewed the report(s) and am incorporating any findings in the treatment plan of this patient where applicable. A&P - Nephrology Assessment/Plan (1) Peritoneal dialysis catheter dysfunction: Assessment/Problem Details: Patient presented with dysfunction of the PD catheter. His KUB showed catheter likely in the right lower quadrant. (2) End-stage renal disease on peritoneal dialysis: Assessment/Problem Details: He has a ESRD due to the hypertensive nephrosclerosis and partial nephrectomy for renal cell carcinoma. He is currently on CCPD and follows with Dr. Winchester. (3) Hypokalemia: Assessment/Problem Details: Patient was found to have hypokalemia likely due to the PD and diuretic induced renal magnesium wasting (4) Leukocytosis: Assessment/Problem Details: He has leukocytosis possibly due to the peritonitis. His peritoneal fluid nucleated count is greater than 100. (5) Anemia of renal disease: Assessment/Problem Details: Is hemoglobin is below the goal. He receives Mircera outpatient. (6) Hypertensive chronic kidney disease with stage 5 chronic kidney disease or end stage renal disease: Assessment/Problem Details: Blood pressure is high. (7) (HFpEF) heart failure with preserved ejection fraction: Assessment/Problem Details: He appears to be well compensated although chest x-ray showed possible pulm edema. Currently does not requiring any oxygen. Plan * Will try to flush the PD catheter with 1 L fluid with heparin and drainage in an hour * Continue empiric antibiotic for possible and adjust as needed based on culture sensitivity. If PDculture fluid comes out negative then suspicion will be low for peritonitis as he has no abdominal symptoms. * Will repeat the serum potassium this evening and replete as needed. * General surgery has been consulted. If PD catheter does not work then he may need replacement of his PD catheter * Continue home dose of the sevelamer. * Continue home dose of ramipril and Lasix. * Thanks for consult. Will continue follow-up with you. Please feel free to call us with any question. Documented By: Dom Faustin MD 05/19/24 3432 Signed By: <Electronically signed by Dom Faustin MD> 05/19/24 [address] [facility] Work Phone: [phone]) 857-367307-28-2024 History and physical note Author Nicolas Man [facility] May 19, 2024 10:51amNote Date/TimeJuly 2023 10:51[place] [address] Hospitalist H&P Signed Patient: Luis Chong III MR#: [id number] : 1955 Acct:[id number] Age/Sex: 69 / M Adm Date: 4 Loc: Room: [address] [place] [address] Type: ADM IN Attending Dr: Nicolas Man MD Copies to: MD Nicolas Sandoval MD~ HPI DATE OF EXAMINATION: 05/19/24 CHIEF COMPLAINT: Peritoneal dialysis catheter not working. 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 Patient was sent to the emergency room from half-way with concern for PD catheter not working. Patient denies having abdominal pain, nausea, vomiting, diarrhea, fever or chills or any other complaint. Apparently since yesterday PD catheter is not draining adequately was sent to the emergency room. Small amount of peritoneal fluid was removed inthe emergency room and sent for culture and cell count. Patient will be startedon empiric antibiotic and nephrology has been consulted. On examination he is laying flat comfortably currently denies any complaint of abdominal distention or pain. No signs of respiratory distress on room air. His labs did show potassium of 2.9 and WBC count 15.9. Chest x-ray showed vascular congestion without consolidative changes. Review of Systems Review of Systems All other systems reviewed & are negative unless noted below or in HPI [facility] Medical History (Updated 05/19/24 @ 10:49 by Nicolas Man MD) (HFpEF) heart failure with preserved ejection fraction CVA (cerebral vascular accident) Anemia of renal disease End-stage renal disease on peritoneal dialysis Peritoneal dialysis catheter in place Hutchinson's palsy Gout Glaucoma History of kidney cancer Kidney failure GERD (gastroesophageal reflux disease) Diverticulitis Cluster headache Hyperlipidemia Hypertension Surgical History History of nephrectomy partial, tumor removed History of hernia repair Family History Sister COPD (chronic obstructive pulmonary disease) Brain cancer Sister COPD (chronic obstructive pulmonary disease) Mother CHF (congestive heart failure) Diabetes mellitus, type 2 Kidney failure Grandparent Stroke Father Family/Other Legacy FamHx Problem: 1 SISTER BRAIN TUMOR, AND LUN SISTER COPD Mother Diabetes Hypertension Sister Cancer Legacy FamHx Problem: Diagnosed with Cancer Social History Smoking Status: Never smoker Substance Use Type: None Meds Medications and Allergies Allergies cephalexin [From Kef[employer]] Allergy (Unknown, Verified 05/18/24 22:11) Itching Home Medications omeprazole 20 mg capsule,delayed release 40 mg PO QAM 07/14/18 [History Confirmed 05/19/24] allopurinol 100 mg tablet 100 mg PO QAM 09/27/22 [History Confirmed 05/19/24] atorvastatin 80 mg tablet 80 mg PO QHS 09/27/22 [History Confirmed 05/19/24] brimonidine 0.2 % eye drops 1 drp Eye-Both BID 09/27/22 [History Confirmed 05/19/24] calcitriol 0.5 mcg capsule 0.5 mcg PO QAM 09/27/22 [History Confirmed 05/19/24] dorzolamide 2 % eye drops 1 drp Eye-Both BID 09/27/22 [History Confirmed 05/19/24] furosemide 40 mg tablet 80 mg PO BID 09/27/22 [History Confirmed 05/19/24] gabapentin 300 mg capsule 300 mg PO QHS 09/27/22 [History Confirmed 05/19/24] timolol maleate 0.5 % eye drops 1 drp Eye-Both BID 09/27/22 [History Confirmed 05/19/24] latanoprost 0.005 % eye drops 1 drp Eye-Left HS 08/09/23 [History Confirmed 05/19/24] magnesium oxide 400 mg (241.3 mg magnesium) tablet 400 mg PO DAILY 08/09/23 [History Confirmed 05/19/24] pilocarpine HCl 2 % eye drops 1 drp Eye-Left BID 08/09/23 [History Confirmed 05/19/24] polyethylene glycol 3350 17 gram/dose oral powder 17 g PO DAILY 08/09/23 [History Confirmed 05/19/24] sevelamer carbonate 800 mg tablet 800 mg PO TIDWMEAL 08/09/23 [History Confirmed 05/19/24] vitamin B complex-vitamin C 100 mg-folic acid 1 mg tablet (Dialyvite) 1 tab PO DAILY 08/09/23 [History Confirmed 05/19/24] verapamil 240 mg tablet,extended release 240 mg PO DAILY 09/17/23 [History Confirmed 05/19/24] sodium chloride 0.9 % (flush) (Normal Saline Flush 0.9 % injection syringe) 10 ml IV DAILY 42 days #73.5 mL 09/22/23 [Rx Confirmed 05/19/24] sodium chloride 0.9 % (flush) (Normal Saline Flush 0.9 % injection syringe) 10 ml IV DAILY 42 days #840 mL 09/22/23 [Rx Confirmed 05/19/24] Vancomycin - Pharmacy Dosing 1 ea IV ONCE PRN infection 05/19/24 [History Confirmed 05/19/24] acetaminophen 650 mg tablet,extended release (Arthritis Pain Relief (acetaminophen) ER) 650 mg PO Q4HR PRN fever or pain 05/19/24 [History Confirmed 05/19/24] albuterol sulfate 2.5 mg/3 mL (0.083 %) solution for nebulization 2.5 mg continuous nebulization Q4HR PRN shortness of breath or wheezing 05/19/24 [History Confirmed 05/19/24] aluminum-mag hydroxide-simethicone 200 mg-200 mg-20 mg/5 mL oral susp (Mag-Al Plus) 5 ml PO Q4HR PRN indigestion 05/19/24 [History Confirmed 05/19/24] ferrous sulfate 325 mg (65 mg iron) tablet 325 mg PO DAILY 05/19/24 [History Confirmed 05/19/24] gentamicin 0.1 % topical cream 1 applic topical DAILY 05/19/24 [History Confirmed 05/19/24] guaifenesin 100 mg/5 mL oral liquid (Cough Syrup) 200 mg PO Q4HR PRN cough 05/19/24 [History Confirmed 05/19/24] nut.tx.impaired renal fxn,soy 0.09 gram-2 kcal/mL oral liquid (Nova[employer] Renal 2 Jamie) 1 ea PO Q OTHER DAY 05/19/24 [History Confirmed 05/19/24] polyethylene glycol 3350 17 gram/dose oral powder (Miralax) 17 g PO DAILY 05/19/24 [History Confirmed 05/19/24] Exam Physical Exam Vital Signs: Temp Pulse Resp BP Pulse Ox O2 Del Method 98.1 F 84 16 153/69 H 95 Room Air 05/19/24 10:00 05/19/24 10:00 05/19/24 10:00 05/19/24 10:00 05/19/24 10:00 05/19/24 10:31 Const General: cooperative Orientation: alert and awake Other: Answering appropriately and following commands. HEENT Head: normal to inspection, no palpable skull fracture, normocephalic and atraumatic Neck Neck: normal visual inspection and full ROM Resp Effort & Inspection: normal respiratory effort and able to speak in complete sentences Auscultation: no rales, no rhonchi and no wheezes Cardio Rate: regular rate Rhythm: regular rhythm Heart Sounds: S1 normal and S2 normal GI Palpation: soft, not firm, no guarding and nontender Neuro General: patient alert, patient awake, moves all extremities, no focal motor deficits and CN's II-XI intact bilaterally Extrem General: no calf tenderness and edema Laterality: bilaterally Severity: 1+ Results - Hospitalist H&P Lab Results Labs: Laboratory Last Values Corrected WBC 15.9 X10E3/uL (4.1-10.5) H 05/19/24 03:15 Uncorrected WBC Count 18.9 x10E3/uL (4.1-10.5) H 05/19/24 03:15 RBC 3.10 X10E6/uL (3.90-5.60) L 05/19/24 03:15 Hgb 9.3 g/dL (13.0-17.0) L 05/19/24 03:15 Hct 27.8 % (38.8-50.0) L 05/19/24 03:15 MCV 89.6 fl (83.5-101) 05/19/24 03:15 MCH 30.1 pg (27.5-35.2) 05/19/24 03:15 MCHC 33.6 g/dL (32.5-35.6) 05/19/24 03:15 RDW 18.4 % (12.0-14.8) H 05/19/24 03:15 Plt Count 239 x10E3/uL (150-450) 05/19/24 03:15 MPV 8.8 fl (6.6-10.1) 05/19/24 03:15 Neut % (Auto) 75.7 % (.) 05/19/24 03:15 Lymph % (Auto) 11.9 % (.) 05/19/24 03:15 [place] % (Auto) 10.7 % (.) 05/19/24 03:15 Eos % (Auto) 1.4 % (.) 05/19/24 03:15 Baso % (Auto) 0.3 % (.) 05/19/24 03:15 Nucleat RBC Rel Count 0.6 /100 WBC (0-0.5) H 05/19/24 03:15 Neut # (Auto) 12.0 x10E3/uL (1.8-7.7) H 05/19/24 03:15 Lymph # (Auto) 1.9 x10E3/uL (1.00-4.8) 05/19/24 03:15 [place] # (Auto) 1.7 x10E3/uL (0.0-0.8) H 05/19/24 03:15 Eos # (Auto) 0.2 x10E3/uL (0.0-0.45) 05/19/24 03:15 Baso # (Auto) 0.1 x10E3/uL (0.0-0.2) 05/19/24 03:15 Monocyte Dist Width 23.25 % (0.00-20.00) H 05/19/24 03:15 Platelet Estimate Normal (Normal) 05/19/24 03:15 Plt Morphology Comment Normal (Normal) 05/19/24 03:15 RBC Morphology N/A 05/19/24 03:15 Polychromasia Moderate 05/19/24 03:15 Poikilocytosis Slight 05/19/24 03:15 Anisocytosis Slight 05/19/24 03:15 Tear Drop Cells Slight 05/19/24 03:15 Ovalocytes Slight 05/19/24 03:15 PHA Creatinine Clear 6.93 05/19/24 03:15 Sodium 127 mmol/L (136-145) L 05/19/24 03:15 Potassium 2.9 mmol/L (3.5-5.1) L* 05/19/24 03:15 Chloride 88 mmol/L (98-107) L 05/19/24 03:15 Carbon Dioxide 25.8 mmol/L (21.0-31.0) 05/19/24 03:15 Anion Gap 16.1 mEq/L (6.0-15.0) H 05/19/24 03:15 BUN 47 mg/dL (7-25) H 05/19/24 03:15 Creatinine 14.05 mg/dL (0.70-1.30) H 05/19/24 03:15 Est GFR (CKD-EPI) 3.376 mL/Min 05/19/24 03:15 Glucose 106 mg/dL (70-100) H 05/19/24 03:15 Calcium 8.1 mg/dL (8.6-10.3) L 05/19/24 03:15 Phosphorus 5.3 mg/dL (2.5-4.5) H 05/19/24 03:15 Magnesium 2.0 mg/dL (1.9-2.7) 05/19/24 03:15 Total Bilirubin 0.3 mg/dl (0.3-1.0) 05/19/24 03:15 AST 43 U/L (13-39) H 05/19/24 03:15 ALT 51 U/L (7-52) 05/19/24 03:15 Alkaline Phosphatase 67 U/L (34-104) 05/19/24 03:15 Troponin I High Sens 49.5 pg/mL (0.0-20.0) H 05/19/24 03:15 B-Natriuretic Peptide 191.0 pg/mL (5-100) H 05/19/24 03:15 Total Protein 7.2 gm/dL (6.4-8.9) 05/19/24 03:15 Albumin 2.7 gm/dL (3.5-5.7) L 05/19/24 03:15 Globulin 4.5 gm/dL 05/19/24 03:15 Albumin/Globulin Ratio 0.6 05/19/24 03:15 Fluid Color Straw 05/19/24 05:30 Fluid Appearance Hazy 05/19/24 05:30 Fld Supernatant Color Straw 05/19/24 05:30 Fluid RBC 1009 mm^3 05/19/24 05:30 Fld Tot Nucleated Cell 124 mm^3 05/19/24 05:30 Fluid Neutrophils % 13 % 05/19/24 05:30 Fluid Lymphocytes % 72 % 05/19/24 05:30 Fluid Eosinophils 2 /100 WBC (0-3) 05/19/24 05:30 Fl Monocyt/Macrophag % 13 % 05/19/24 05:30 Microbiology Results Micro: Microbiology - Results from entire visit 05/19/24 05:30 Peritoneal Fluid Gram Stain - Final Assessment & Plan Assessment/Plan (1) Peritoneal dialysis catheter dysfunction: (2) Leukocytosis: (3) Volume overload: (4) End-stage renal disease on peritoneal dialysis: (5) Hypokalemia: Plan Patient was sent to the emergency room due to peritonitis his catheter not functioning. Nephrology has been contacted and has been empirically started on IV antibiotic. Peritoneal fluid has been sentfor culture and cell count. On examination abdomen is soft and nontender. Patient denies having abdominal painor any other complaint at this time. Consult nephrology. Potassium has been replaced. Continue other home medications. DVT prophylaxis. IP vs OBS Justification Based on differential dx, clinical care plan, and risk of adverse events, if untreated, in my clinical judgement this patient requires an acute care setting as: INPATIENT because of an expectation ofan over 2 midnight stay. Estimated length of stay (# of days): 3 Documented By: Nicolas Man MD 05/19/24 1044 Signed By: <Electronically signed by Nicolas Man MD> 05/19/24 10[address] [facility] Work Phone: 1(545) 345-975202-07-2024 History of Present illness Narrative* Angel Luis Sanches MD - 11/29/2023 11:13 AM ESTAssociated Problem(s): Peritoneal dialysis status ([facility] Patient to go into ECF and will complete paperwork if needed. Continue peritoneal dialysis and follow up with nephrology. * Angel Luis Sanches MD - 11/29/2023 11:12 AM ESTAssociated Problem(s): Essential hypertension, benign (CMS/HCC) BP controlled at home and monitor PRN. * Angel Luis Sanches MD - 11/29/2023 11:12 AM ESTAssociated Problem(s): End stage renal disease (CMS/HCC) Continue peritoneal dialysis and follow up with nephrology. * Angel Luis Sanches MD - 11/29/2023 11:12 AM ESTAssociated Problem(s): Chronic cluster headache ALBERT well controlled with verapamil and continue. * Angel Luis Sanches MD - 11/29/2023 10:45 AM EST Subjective Patient ID: Luis Chong III is a 68 y.o. male who presents for Follow-up (Physical for half-way). HPI Review of Systems Objective Physical Exam Assessment/Plan * Angel Luis Sanches MD - 11/29/2023 10:45 AM EST Subjective Patient ID: Luis Chong III is a 68 y.o. male who presents for Follow-up (Physical for half-way). Presents for physical for ECF. Patient plans on going to ECF. On peritoneal dialysis and had peritonitis end of August. Developed confusion and to ER 09/15. Transferred to [facility] and treated. Admitted for about 1 week and on IV antibiotics for several weeks. Still performing peritoneal dialysis nightly. Overall feels okay. Still with mild weakness and plans on starting therapy. Checking BP PRN and typically controlled. BP elevated today. Taking medication daily and tolerating without side effects. Cluster ALBERT stable. No ALBERT for several weeks and feels well. Continues to take verapamil daily. Review of Systems Constitutional: Negative for fatigue. Respiratory: Negative for cough, shortness of breath and wheezing. Cardiovascular: Negative for chest pain and palpitations. Gastrointestinal: Negative for abdominal pain, diarrhea, nausea and vomiting. Genitourinary: Negative for dysuria. Objective Physical Exam Constitutional: General: He is not in acute distress. Appearance: Normal appearance. HENT: Head: Normocephalic. Right Ear: Tympanic membrane and ear canal normal. Left Ear: Tympanic membrane and ear canal normal. Eyes: Extraocular Movements: Extraocular movements intact. Pupils: Pupils are equal, round, and reactive to light. Cardiovascular: Rate and Rhythm: Normal rate and regular rhythm. Heart sounds: No murmur heard. No friction rub. No gallop. Pulmonary: Breath sounds: Normal breath sounds. No wheezing, rhonchi or rales. Abdominal: General: Bowel sounds are normal. There is no distension. Palpations: Abdomen is soft. Tenderness: There is no abdominal tenderness. There is no guarding or rebound. Musculoskeletal: Left lower leg: No edema. Neurological: Mental Status: He is alert. Assessment/Plan Problem List Items Addressed This Visit Chronic cluster headache ALBERT well controlled with verapamil and continue. Essential hypertension, benign (CMS/HCC) BP controlled at home and monitor PRN. End stage renal disease (CMS/HCC) Continue peritoneal dialysis and follow up with nephrology. Peritoneal dialysis status (CMS/HCC) - Primary Patient to go into ECF and will complete paperwork if needed. Continue peritoneal dialysis and follow up with nephrology. documented in this encounterWright Memorial [id number] History of Present illness Narrative* Sharona Sands RN - 11/03/2023 11:00 AM EST Patient is here for IV Vanco. Peripheral IV started to right hand, brisk blood return verified. IV vanco infused over one hour. Patient tolerated it well. IV flushed and removed. Patient will have labs drawn Monday and for his next dose same day. Patient verbalized understanding and discharged in stable condition. documented in this encounterUniversity [facility]als [facility]01-09-2024 History of Present illness Narrative* Herlinda Moralez RPH - 10/31/2023 11:00 AM EST Pharmacy consult to dose Vancomycin per Dr. Martell Ortega. Doses are being given q 4 or q 3 days. Dosing per Trough levels due to patient being on PERITONEAL Dialysis. * Becca Martini RN - 10/31/2023 11:00 AM EST Images from the original note were not included. Patient is here for IV Vanco. Peripheral IV started to right hand, brisk blood return verified. IV vanco infused over one hour. Patient tolerated it well. IV flushed and removed. Patient will have labs drawn Monday and for his next dose same day. Patient verbalized understanding and discharged in stable condition. documented in this encounterUniversity Hospitals [facility]01-05-2024 History of Present illness Narrative* Ethan Arias RN - 10/27/2023 11:00 AM EST Patient is here for IV Vanco. Peripheral IV started to left hand, brisk blood return verified. Flushes with ease. NS started at KVO. IV vanco infused over one hour. Patient tolerated well. IV flushedand removed. Patient will have labs drawn Monday for his next dose same day. Patient verbalized understanding and discharged in stable condition. documented in this encounterUniversity Hospitals [facility]01-02-2024 History of Present illness Narrative* Herlinda Moralez RPH - 10/24/2023 11:00 AM EST 10/24/2023 SCr = 12.39mg/dL today - Trough = 18 mcg/ml Will only give 600mg dose today and recheck Trough and SCr again on Monday10/27/2023. * Becca Martini RN - 10/24/2023 11:00 AM EST Patient is here for IV Vanco. Peripheral IV started to right hand, brisk blood return verified. IV vanco infused over one hour. Patient tolerated it well. IV flushed and removed. Patient will have labs drawn Monday and for his next dose same day. Patient verbalized understanding and discharged in stable condition. documented in this encounterUniversity Hospitals [facility]12-29-2023 History of Present illness Narrative* Herlinda Moralez RPH - 10/20/2023 11:00 AM EST Patients SCr is 12.68 mg/dL on 10/20/23 Trough is 14.8 ug/ml Will repeat same dose of Vancomycin 750mg IVPB again today as long as a peripheral line can be accessed. Repeat Vanomycin trough again on Oct 24, 2023 with a repeat SCr also. Harmony Moralez RPh per RX consult 10/20/23 * Becca Martini RN - 10/20/2023 11:00 AM EST Patient is here for IV vanco. HE is tolerating it well. His picc line is nonfunctioning. Order received from Dr. Ortega to remove picc line today. IV started to right hand, brisk blood return achieved. NS started at KVO. IV Vanco infused over one hour. Patient tolerated it well. IV removed. PICC line removed per protocol. Discharge instructions reviewed. Patient verbalized understanding of future appointments. documented in this encounterUniversity Hospitals [facility] Center12-28-2023 History of Present illness Narrative* Becca Martini RN - 10/19/2023 2:19 PM EST Spoke with Dr. Ortega. Okay to remove non functioning picc line. Patient only has 5 more doses of ivvanco. Attempt peripheral IV access for last 5 doses and if any problems call Dr. Ortega's cell phone [phone]. documented in this encounterUniversity Hospitals Tri[facility] Center12-26-2023 History of Present illness Narrative* Becca Martini RN - 10/17/2023 11:00 AM EST Patient is here for Vancomycin. Picc line flushes but leaks when flushed. Dressing has increasing red serosanguinous drainage when flushing. Peripheral IV started to right hand with brisk blood return verified. Vanco infused over 1 hr. VM left for Dr. Ortega and Dr. Sanches to try and obtain order to remove picc line. No call back. Picc line dressing changed under sterile technique and left in place until order is received to remove. Peripheral IV removed. Patient verbalized understanding to go to the hospital Monday to have labs drawn. Will update him if we receive order to remove picc line and or to have new line placed for his remaining doses as peripheral IV access can be a challenge forhim sometimes. Patient's daughter updated as well. Patient discharged via wheelchair in stable condition. documented in this encounterUniversity Hospitals [facility] Center12-22-2023 History of Present illness Narrative* Herlinda Moralez RPH - 10/13/2023 11:00 AM EST On 10/13/23 SCr = 12.27 and the Trough was 12. Will give a 500mg dose of Vancomycin and check SCr and Trough again on 10/17/23. * Catia Garza RN - 10/13/2023 11:00 AM EST Patient is here for IV Vanco as scheduled. Vanco trough 12 and creatinine is 12.7. PICC with brisk blood return with arm down to side and line flushes with ease. NS initiated as mainline at KVO rate.Vanco infused over 1 hour as ordered. Patient tolerated well. Picc line flushed per protocol. Upon disconnecting mainline tubing, dressing noted to be saturated with fluid at bottom and coming loose.PICC dressing change due today. PICC dressing changed per protocol with no increase noted to upper extremity circumference but PICC measured at 7 cm out from last week at 4 cm. Informed patient will still change dressing per facility protocol and update Dr. Ortega's office on drainage and will notify him on any recommendations. Patient verbalized understanding. Patient instructed to go to hospitalT morning for labs, and if WNL patient scheduled for Vanco at 11am same day. He and daughter were also instructed to go to ED for evaluation if ID office closed and we do not obtain any orders today. Patient verbalized understanding. Discharged in stable condition to private vehicle in care of his daughter, Magnolia. Call to Dr. Katz office to update. Office was closed, very detailed messagewas left for office to update the doctor on Monday10/17/23 and call back with any additional questions, concerns and/or orders. Call placed to patient's daughter Magnolia to let her know that ID office was closed and reiterate the if patient has any problems with PICC over the weekend to go to ED for evaluation. Verbalized understanding. documented in this encounterUniversity Hospitals [facility]12-01-2023 Discharge summary Author Adam Judge [facility] September 22, 2023 1:05pmNote Date/TimeDece2022 1:04pm[place] [address] Discharge Summary Signed Patient: Luis Chong III MR#: [id number] : 1955 Acct:[id number] Age/Sex: 68 / M Adm Date: 3 Loc: Room: [address] [place] [address]: Adam Judge MD Copies to: MD Angel Luis Reeves MD~ Providers Date of Discharge: 09/22/23 Discharging Provider: Adam Judge Primary Care Provider: Angel Luis Sanches Consults: 09/16/23 12:42 Consult to Nephrology Routine 09/17/23 12:19 Consult to Occupational Therapy Routine Consult to Physical Therapy Routine 09/18/23 08:00 Consult to Infectious Diseases Routine 09/18/23 13:44 Consult to Oncology Routine 09/21/23 10:06 Vascular Lab PICC Consult Routine Discharge Diagnosis Final Diagnosis Final Discharge Diagnosis: Aortic valve endocarditis with MSSA Right renal mass, incidental Chronic problems End-stage renal disease on peritoneal dialysis Obesity class II Glaucoma Hypertension Dyslipidemia Mild aortic stenosis Summary Hospital Course Hospital course: Patient is 68 years old male, on peritoneal dialysis. He presented to the emergency department of [facility] with confusion, fever, and was subsequently transferred to our facility. Workup identified MSSA bacteremia, and transthoracic echocardiogram showed an aortic valve vegetation. Patient was seen by infectious disease. The PICC line was inserted, and therapywith vancomycin was initiated. No major complications occurred, and the patientwas discharged home in stable condition on September 22. He will continue 6 weeksof antimicrobial therapy, follow-up with ID and PCP. Incidentally, patient was noted to have a right renal mass. He is status post aleft nephrectomy forrenal cell carcinoma. He was seen by oncology, and appropriate follow-up with [facility] was established. Time Spent with Patient Time spent providing/coordinating discharge services (# min): 40 Diagnostic Studies Completed and Pending Studies Pending studies at discharge: 09/18/23 08:20 Blood Culture IN AM 09/25/23 05:00 Vancomycin,Random [TOX] Timed Preliminary micro results at discharge 09/18/23 08:20 Blood Culture - Preliminary Blood - Left Antecubital No Growth 4 Days 09/18/23 08:19 Blood Culture - Preliminary Blood - Right Antecubital No Growth 4 Days Labs on day of discharge: 09/22/23 06:08: Random Vancomycin 15.8 Exam Physical Exam Vital Signs: Temp Pulse Resp BP Pulse Ox O2 Del Method 98.0 F 93 H 18 158/83 H 97 Room Air 09/22/23 08:00 09/22/23 08:00 09/22/23 08:00 09/22/23 08:00 09/22/23 08:00 09/22/23 08:00 Discharge Plan Discharge Plan Patient Disposition: Home Activity: No Activity Restriction Diet: Renal Additional Instructions: Pharmacy to dose vancomycin Maintain and perform routine care to right arm PICC line-- placed on 09/22/23 *Routine flushes and care per protocol *Continue IV vancomycin for a total of 6 weeks Continue peritoneal dialysis treatments as before Continue gentamicin cream 1% at PD exit site daily Instructions: How to Care for a Central Line Catheter, Infective Endocarditis (DC), Peripherally-Inserted Central Catheter (DC) Stand Alone Forms: Work/School Release Form Prescriptions: New Vancomycin - Pharmacy Dosing 1 ea IV ONCE PRNQty: 0 0RF vancomycin 1.5 gram Recon Soln 1.75 g IV Q24H 42 Days Qty: 73.5 0RF Rx Instructions: for 6 weeks-- pharmacy to dose sodium chloride 0.9 % (flush) [Normal Saline Flush] Syringe 10 ml IV DAILY 42 Days Qty: 840 0RF Rx Instructions: administer before and after IV drug administration as part of [facility] protocol nystatin 100,000 unit/mL Suspension 400,000 unit PO TID 30 Days Qty: 360 0RF Continued sevelamer carbonate 800 mg tablet 800 mg PO TIDWMEAL Patient Comments: TAKE 1 TABLET BY MOUTH THREE TIMES A DAY WITH MEALS latanoprost 0.005 % drops 1 drp Eye-Left HS Patient Comments: INSTILL 1 DROP INTO LEFT EYE AT BEDTIME potassium chloride [Klor-Con M20] 20 mEq tablet,ER particles/crystals 20 meq PO BID Patient Comments: TAKE 1 TABLET BY MOUTH TWICE A DAY magnesium oxide 400 mg (241.3 mg magnesium) tablet 400 mg PO DAILY Patient Comments: TAKE ONE TABLET BY MOUTH ONCE A DAY pilocarpine HCl 2 % drops 1 drp Eye-Left BID Patient Comments: INSTILL 1 DROP INTO LEFT EYE TWICE A DAY Dialyvite 100-1 mg tablet 1 tab PO DAILY Patient Comments: TAKE 1 TABLET BY MOUTH EVERY DAY polyethylene glycol 3350 17 gram/dose powder 17 g PO DAILY Patient Comments: MIX 1 SCOOP (17G) IN LIQUID AND DRINK ONCE DAILY DIRECTED [id number]-[id number] 50-325-40 mg Capsule 1 cap PO Q4H PRN (Reason: Pain) omeprazole 20 mg Capsule,Delayed Release(Dr/Ec) 40 mg PO QAM furosemide 40 mg tablet 40 mg PO BID Patient Comments: TAKE 1 TABLET BY MOUTH TWICE A DAY atorvastatin 80 mg tablet 80 mg PO QHS Patient Comments: TAKE 1 TABLET BY MOUTH EVERY DAY allopurinol 100 mg tablet 100 mg PO QAM Patient Comments: TAKE 1 TABLET BY MOUTH EVERY DAY calcitriol 0.5 mcg capsule 0.5 mcg PO QAM Patient Comments: TAKE 1 CAPSULE BY MOUTH EVERY DAY FOR 90 DAYS brimonidine 0.2 % drops 1 drp Eye-Both BID Patient Comments: INSTILL 1 DROP INTO BOTH EYES TWICE A DAY DIRECTED gabapentin 300 mg capsule 300 mg PO QHS Patient Comments: TAKE 1 CAPSULE BY MOUTH THREE TIMES A DAY timolol maleate 0.5 % drops 1 drp Eye-Both BID Patient Comments: INSTILL 1 DROP INTO BOTH EYES TWICE A DAY DIRECTED dorzolamide 2 % drops 1 drp Eye-Both BID Patient Comments: INSTILL 1 DROP INTO BOTH EYES TWICE A DAY DIRECTED valsartan 80 mg tablet 80 mg PO DAILY hydralazine 50 mg tablet 50 mg PO BID verapamil 240 mg tablet extended release 240 mg PO DAILY Patient Comments: TAKE 1 TABLET BY MOUTH EVERY DAY Follow Up: [facility] [Other] - 09/25/23 8:00 am (Your next IV antibiotic infusion is scheduled for the following date and time. ) Ron Ortega MD [Active Staff] - (The office is currently unavailable. Pleasecall the office on Monday for a follow-up appointment in 5 weeks. ) Angel Luis Sanches MD [Primary Care Provider] - (The office is currently closed. Please call the office on Monday for a follow-up appointment within 3-5 days. ) Bryan Miguel MD [Active Staff] - (The office is aware of your hospital stay and need for follow up, the office will call you to schedule. Please call the office if you have not heard from them by the next day.) Documented By: Adam Judge MD 09/22/231300 Signed By: <Electronically signed by Adam Judge MD> 09/22/[address] [facility] Work Phone: 1(395) 190-638412-01-2023 Progress note Author Adam Judge [facility] September 22, 2023 1:01pmNote Date/TimeDece2022 1:01pm[place] [address] Hospitalist Progress Note Signed Patient: Luis Chong III MR#: [id number] : 1955 Acct:[id number] Age/Sex: 68 / M Adm Date: 3 Loc: Room: [address] [place] [address] Type: ADM IN Attending Dr: Adam Judge MD Copies to: ~ Date of Service: 09/22/2023 Subjective Subjective Narrative: Attending note: I saw the patient personally on the day of encounter. I reviewed the relevant history, and performed the gregory elements of the physical examination. I reviewedthe relevant laboratory workup, radiological studies and the current treatment plan. I formulated the plan of care and confirmed it with the re sident/student/[employer]. Reassessment on a 68-year-old male who was admitted to the hospitalist service for rule out SBP. Seen and evaluated in his room where he is resting comfortably in bed. Luis says he is feeling well today with no new pains, symptoms, orcomplaints. His PICC line was unable to be placed yesterday evening so Luis diaz is heading to radiology this morning for placement of the PICC line, radiology is booked so outside service will reattempt PICC line placement today prior to discharge. His sister was present today on interview. Review of systems Constitutional: Denies Fatigue, malaise. Neuro: Denies Dizziness/lightheadedness, numbness/tingling in extremities, changes in mental status Pulmonary: Denies SOB, dyspnea, cough, wheezing. Cardiac: Denies Chest pain/pressure, edema, palpitations. GI: Denies Abdominal pain, heartburn, N/V, constipation and diarrhea : Denies Dysuria, hematuria, polyuria. Physical exam General: Not in any acute distress, alert and oriented HEENT: Head atraumatic, face symmetrical. Pulm: Lungs clear to auscultation bilaterally with no wheezing rhonchi or crackles Cardio: Regular rate and rhythm with no murmurs gallops or rubs Abdomen: No tenderness to palpation Exam Physical Exam Vital Signs: Temp Pulse Resp BP Pulse Ox O2 Del Method 98.0 F 93 H 18 158/83 H 97 Room Air 09/22/23 08:00 09/22/23 08:00 09/22/23 08:00 09/22/23 08:00 09/22/23 08:00 09/22/23 08:00 Objective Lab Results 09/21/23 06:30 09/21/23 06:30 Microbiology Results Microbiology 09/18/23 08:20 Blood - Left Antecubital Blood Culture - Preliminary No Growth 4 Days 09/18/23 08:19 Blood - Right Antecubital Blood Culture - Preliminary No Growth 4 Days Meds Allergies and Active Meds Allergies cephalexin [From Keflex] Adverse Reaction (Verified 08/09/23 11:19) Itching Active Meds: Active Medications Generic Name Dose Route Start Last Admin Trade Name Freq PRN Reason Stop Dose Admin Acetaminophen 1,000 mg 09/16/23 13:13 09/18/23 00:53 Acetaminophen 500 Mg Tablet PO 09/15/24 13:12 1,000 mg Q6H PRN Administration Fever or Pain Acetaminophen/Butalbital/Caffeine 1 tab 09/19/23 15:47 09/20/23 07:01 Butalb/Acetamin/Caffeine 50-325-40 1 Tab Tablet PO 09/18/24 15:46 1 tab Q6H PRN Administration Headache Atorvastatin Calcium 80 mg 09/16/23 22:00 09/21/23 21:38 Atorvastatin 80 Mg Tablet PO 09/15/24 21:59 80 mg QHS RYAN Administration Brimonidine Tartrate 1 drops 09/16/23 21:00 09/22/23 08:50 Brimonidine 0.2% Op Soln 100 Drops/5 Ml Bottle EYE-BOTH 09/15/24 20:59 1 drops BID RYAN Administration Dorzolamide HCl 1 drops 09/16/23 21:00 09/22/23 08:50 Dorzolamide 2% Op Soln 200 Drops/10 Ml Bottle EYE-BOTH 09/15/24 20:59 1 drops BID RYAN Administration Furosemide 40 mg 09/17/23 21:00 Furosemide 40 Mg Tablet PO 09/16/24 20:59 BID RYAN Gentamicin Sulfate 1 applic 09/16/23 14:00 09/22/23 08:49 Gentamicin 0.1% Cream 15 Gm Tube TOPICAL 09/15/24 13:59 1 applic DAILY RYAN Administration Heparin Sodium (Porcine) 5,000 unit 09/17/23 15:20 09/22/23 06:57 Heparin 5,000 Unit/Ml Vial SUBCUT 09/16/24 15:19 Not Given Q8HR RYAN Heparin Sodium (Porcine) 1,000 unit 09/19/23 13:00 09/22/23 07:53 Heparin 1,000 Unit/Ml INTRAPERIT 09/18/24 12:59 Not Given Q4HR RYAN Hydralazine HCl 50 mg 09/21/23 14:00 09/22/23 08:49 Hydralazine 50 Mg Tablet PO 09/20/24 13:59 50 mg TID RYAN Administration Vancomycin HCl 1.25 gm/ 275 mls @ 183.333 mls/hr 09/22/23 18:00 Dextrose IV 09/22/23 19:29 ONCE ONE Latanoprost 1 drops 09/16/23 22:00 09/21/23 21:32 Latanoprost 0.005% Op Soln 50 Drops/2.5 Ml Bottle EYE-LEFT 09/15/24 21:59 1drops HS RYAN Administration Magnesium Oxide 400 mg 09/17/23 09:00 09/22/23 08:49 Magnesium Oxide 400 Mg Tablet PO 09/16/24 08:59 400 mg DAILY RYAN Administration Nystatin 400,000 unit 09/16/23 14:30 09/22/23 08:48 Nystatin Susp 500,000 Unit/5 Ml Udc PO 09/15/24 14:29 400,000 unit TID RYAN Administration Ondansetron HCl 4 mg 09/17/23 11:29 09/19/23 15:10 Ondansetron 4 Mg/2 Ml Vial IV-PUSH 09/16/24 11:28 4 mg Q4H PRN Administration Nausea And Vomiting Pantoprazole Sodium 40 mg 09/16/23 21:00 09/22/23 08:49 Pantoprazole 40 Mg Tablet.Dr PO 09/15/24 20:59 40 mg BID RYAN Administration Pilocarpine HCl 1 drops 09/16/23 21:00 09/22/23 08:50 Pilocarpine 2% Op Soln 300 Drops/15 Ml Bottle EYE-LEFT 09/15/24 20:59 1 drops BID RYAN Administration Polyethylene Glycol 17 gm 09/17/23 09:00 09/22/23 08:50 Polyethylene Glycol 3350 17 Gm Powd.Pack PO 09/16/24 08:59 Not Given DAILY RYAN Sodium Chloride 0 ml 09/21/23 10:06 Sodium Chloride 0.9 % 10 Ml Syringe IV-PUSH 09/20/24 10:05 PRN PRN Flush Timolol Maleate 1 drops 09/16/23 21:00 09/22/23 08:50 Timolol Mal 0.5% Op Soln 100 Drops/5 Ml Bottle EYE-BOTH 09/15/24 20:59 1 drops BID RYAN Administration Valsartan 80 mg 09/18/23 09:00 09/18/23 08:39 Valsartan 80 Mg Tablet PO 09/17/24 08:59 80 mg DAILY RYAN Administration Vancomycin HCl 1 each 09/16/23 12:55 Vancomycin - Pharmacy Dosing 1 Each Miscell IV ONCE PRN ZZ.Pharmacy Consult Protocol Verapamil HCl 240 mg 09/18/23 09:00 09/22/23 08:49 Verapamil Er (Sr) 240 Mg Tablet.Er PO 09/17/24 08:59 240 mg DAILY RYAN Administration Vitamin B Complex/Vit C/Folic Acid 1 tab 09/17/23 09:00 09/22/23 08:49 Folic Acid/Vit Bcomp,C 1 Tab Tablet PO 09/16/24 08:59 1 tab DAILY RYAN Administration A&P - Hospitalist Assessment/Plan (1) Aortic valve endocarditis: (2) Bacteremia due to Staphylococcus aureus: (3) End-stage renal disease on peritoneal dialysis: (4) (HFpEF) heart failure with preserved ejection fraction: (5) Anemia of renal disease: Plan Impression: This is a 68-year-old male with past medical history of CKD and ESRD on peritoneal dialysis, hypertension, hyperlipidemia who is being monitored on the floor for rule out SBP. Peritoneal fluid is reassuring, repeat blood cultures no growth x 2 days. Afebrile and hemodynamically stable x 24 hours. Plan: 1) Staph aureus bacteremia/bacterial endocarditis: Antibiotics narrowed to vancomycin monotherapy. Infectious disease on board, waiting for the results before length of stay is determined. Clinical presentation and vital signs remain reassuring. Continue to monitor CBCs. PICC line to be placed today, will require multiple weeks of IV antibiotics. 2) ESRD on peritoneal dialysis: Nephrology on board, managing dialysis coordination. Vancomycin dosing per pharmacy. 3) HFrEF: Initial concern for fluid overload state, holding off on IV fluid administration. Echocardiogram revealed aortic valve endocarditis, see above. Lung sounds clear on my examination today. 4) chronic medical conditions: Continue home medications as reconciled DVT prophylaxis: Heparin Diet: Renal CODE STATUS: Full code Documented By: Adam Judge MD 09/22/23 0946 Signed By: <Electronically signed by Adam Judge MD> 09/22/[address] [facility] Work Phone: 1(625) 453-251812-01-2023 Progress note Author Reece [facility] September 22, 2023 12:19pmNote Date/TimeDecemb2022 12:19pm[place] [address] Nephrology Progress Note Signed Patient: Luis Chong III MR#: [id number] : 1955 Acct:[id number] Age/Sex: 68 / M Adm Date: 3 Loc: Room: [address] [place] [address] Type: ADM IN Attending Dr: Adam Judge MD Copies to: ~ Date of Service: 09/22/2023 Subjective Subjective Narrative: Mr. Chong is a 68-year-old -Nepalese male with history of ESRD who was just started PD underthe care of Dr. Winchester in [facility]. Patient has renalcell carcinoma s/p partial left nephrectomy in 1999. Patient was just recently started PD on June 2023 and he uses a cycler at home with help of his . Patient presented to ER minister assistant on 09/16 with altered mental status and abdominal pain. Evaluation in ER showed fever [address] scan of the abdomen and pelvis was obtained that showed 6.6 cm mass arising from the left lower pole of the right kidney suggestive of malignancy. CT scan was done without contrast. PD catheter was in place with no other significant intra-a bdominal abnormalities. Patient was loaded empirically with IV vancomycin 2 g and piperacillin/tazobactam. Unfortunately no PD fluid was obtained for Gram stain or culture since [facility] has distribution engineering technologist with PD procedures. Subsequently, the patient was transferred to [facility] for management. Patient was recently admitted at [facility] on July 2023 with slurredspeech and right facial droop and he was evaluated by neurology for possible CVA. 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 Interval history: Patient was seen and examined in his room. Patient denied any difficulties in inflowing or outflowing PD fluid. Remains on vancomycin for Staph aureus bacteremia with endocarditis. Waiting onPICC line placement. Patient remains on room air. Stable blood pressure Denied nausea vomiting. Patient is seen today while draining PD fluid Exam Physical Exam Vital Signs: Temp Pulse Resp BP Pulse Ox O2 Del Method 98.0 F 93 H 18 158/83 H 97 Room Air 09/22/23 08:00 09/22/23 08:00 09/22/23 08:00 09/22/23 08:00 09/22/23 08:00 09/22/23 08:00 Narrative: General: No acute distress Head :atraumatic normocephalic Eyes: PERRLA. Neck: no JVD no bruit. Heart: S1-S2. RRR Respiratory: Clear to auscultation. No wheezing. No crackles Abdomen: Soft, positive bowel sounds,no tenderness. PD catheter in place Neurology: Awake alert oriented x3. No focal deficits Extremity. No cyanosis. Trace edema of lower extremities Skin: No skin rash Objective Intake and Output I&O: Intake & Output 09/19/23 09/20/23 09/21/23 09/22/23 23:59 23:59 23:59 23:59 Intake Total 17099 / 47999 52949 / 38836 15001 / 03232 5140 / 5140 Output Total 5700 / 5700 06187 / 85876 16012 / 15148 5000 / 5000 Balance 7200 / 7200 30 / 30 -1110 / -1110 140 / 140 Weight 124 kg 122 kg 122.6 kg 124.2 kg Meds and Allergies Meds: Active Medications Acetaminophen (Acetaminophen 500 Mg Tablet) 1,000 mg PO Q6H PRN PRN Reason: Fever or Pain Stop: 09/15/24 13:12 Last Admin: 09/18/23 00:53 Dose: 1,000 mg Acetaminophen/Butalbital/Caffeine (Butalb/Acetamin/Caffeine 50-325-40 1 Tab Tablet) 1 tab PO Q6H PRN PRN Reason: Headache Stop: 09/18/24 15:46 Last Admin: 09/20/23 07:01 Dose: 1 tab Atorvastatin Calcium (Atorvastatin 80 Mg Tablet) 80 mg PO QHS RYAN Stop: 09/15/24 21:59 Last Admin: 09/21/23 21:38 Dose: 80 mg Brimonidine Tartrate (Brimonidine 0.2% Op Soln 100 Drops/5 Ml Bottle) 1 drops EYE-BOTH BID RYAN Stop: 09/15/24 20:59 Last Admin: 09/22/23 08:50 Dose: 1 drops Dorzolamide HCl (Dorzolamide 2% Op Soln 200 Drops/10 Ml Bottle) 1 drops EYE-BOTH BID RYAN Stop: 09/15/24 20:59 Last Admin: 09/22/23 08:50 Dose: 1 drops Furosemide (Furosemide 40 Mg Tablet) 40 mg PO BID RYAN Stop: 09/16/24 20:59 Gentamicin Sulfate (Gentamicin 0.1% Cream 15 Gm Tube) 1 applic TOPICAL DAILY RYAN Stop: 09/15/24 13:59 Last Admin: 09/22/23 08:49 Dose: 1 applic Heparin Sodium (Porcine) (Heparin 5,000 Unit/Ml Vial) 5,000 unit SUBCUT Q8HR RYAN Stop: 09/16/24 15:19 Last Admin: 09/22/23 06:57 Dose: Not Given Heparin Sodium (Porcine) (Heparin 1,000 Unit/Ml) 1,000 unit INTRAPERIT Q4HR RYAN Stop: 09/18/24 12:59 Last Admin: 09/22/23 10:42 Dose: 1,000 unit Hydralazine HCl (Hydralazine 50 Mg Tablet) 50 mg PO TID RYAN Stop: 09/20/24 13:59 Last Admin: 09/22/23 08:49 Dose: 50 mg Vancomycin HCl 1.5 gm/ (Dextrose) 530 mls @ 353.333 mls/hr IV ONCE ONE Stop: 09/22/23 13:59 Latanoprost (Latanoprost 0.005% Op Soln 50 Drops/2.5 Ml Bottle) 1 drops EYE-LEFT HS RYAN Stop: 09/15/24 21:59 Last Admin: 09/21/23 21:32 Dose: 1 drops Magnesium Oxide (Magnesium Oxide 400 Mg Tablet) 400 mg PO DAILY RYAN Stop: 09/16/24 08:59 Last Admin: 09/22/23 08:49 Dose: 400 mg Nystatin (Nystatin Susp 500,000 Unit/5 Ml Udc) 400,000 unit PO TID RYAN Stop: 09/15/24 14:29 Last Admin: 09/22/23 08:48 Dose: 400,000 unit Ondansetron HCl (Ondansetron 4 Mg/2 Ml Vial) 4 mg IV-PUSH Q4H PRN PRN Reason: Nausea And Vomiting Stop: 09/16/24 11:28 Last Admin: 09/19/23 15:10 Dose: 4 mg Pantoprazole Sodium (Pantoprazole 40 Mg Tablet.Dr) 40 mg PO BID RYAN Stop: 09/15/24 20:59 Last Admin: 09/22/23 08:49 Dose: 40 mg Pilocarpine HCl (Pilocarpine 2% Op Soln 300 Drops/15 Ml Bottle) 1 drops EYE-LEFT BID RYAN Stop: 09/15/24 20:59 Last Admin: 09/22/23 08:50 Dose: 1 drops Polyethylene Glycol (Polyethylene Glycol 3350 17 Gm Powd.Pack) 17 gm PO DAILY RYAN Stop: 09/16/24 08:59 Last Admin: 09/22/23 08:50 Dose: Not Given Sodium Chloride (Sodium Chloride 0.9 % 10 Ml Syringe) 0 ml IV-PUSH PRN PRN PRN Reason: Flush Stop: 09/20/24 10:05 Sodium Chloride (Sodium Chloride 0.9 % 10 Ml Vial.Pf) 10 ml INJECTION Q4H PRN PRN Reason: Ativan dilution Stop: 09/21/24 11:27 Timolol Maleate (Timolol Mal 0.5% Op Soln 100 Drops/5 Ml Bottle) 1 drops EYE- BOTH BID RYAN Stop: 09/15/24 20:59 Last Admin: 09/22/23 08:50 Dose: 1 drops Valsartan (Valsartan 80 Mg Tablet) 80 mg PO DAILY RYAN Stop: 09/17/24 08:59 Last Admin: 09/18/23 08:39 Dose: 80 mg Vancomycin HCl (Vancomycin - Pharmacy Dosing 1 Each Miscell) 1 each IV ONCE PRN; Protocol PRN Reason: ZZ.Pharmacy Consult Verapamil HCl (Verapamil Er (Sr) 240 Mg Tablet.Er) 240 mg PO DAILY RYAN Stop: 09/17/24 08:59 Last Admin: 09/22/23 08:49 Dose: 240 mg Vitamin B Complex/Vit C/Folic Acid (Folic Acid/Vit Bcomp,C 1 Tab Tablet) 1 tab PO DAILY RYAN Stop: 09/16/24 08:59 Last Admin: 09/22/23 08:49 Dose: 1 tab Allergies cephalexin [From Keflex] Adverse Reaction (Verified 08/09/23 11:19) Itching Results Labs 09/21/23 06:30 09/21/23 06:30 Radiology Impressions Impressions - last 24 hours: Impressions Chest X-Ray 09/21/23 15:33 IMPRESSION: A RIGHT-SIDED PICC LINE IS IDENTIFIED WITH ITS TIP PROJECTING OVER THE EXPECTED LOCATION OF THE RIGHT SUBCLAVIAN VEIN. THIS COULD BE ADVANCED INTO THE SVC OR POSSIBLY RETRACTED FOR A MIDLINE POSITION. Impression dictated by: Mehran Eldridge Jr., D.O.09/21/2023 4:05 PM Dictation Location: RAD[facility]-15 Chest X-Ray 09/21/23 17:08 IMPRESSION: THE PATIENT'S RIGHT-SIDED PICC LINE TIP IS NOT WITHIN THE RIGHT AXILLARY VEIN/SUBCLAVIAN JUNCTION. THIS SHOULD BE REPOSITIONED. Impression dictated by: Mehran Eldridge Jr., D.O.09/21/2023 5:46 PM Dictation Location: [facility]15 Any impression(s) listed above is documentation that was entered by the reading physician into a diagnostic report(s) for Luis Chong III. I have reviewed the report(s) and am incorporating any findings in the treatment plan of this patient where applicable. A&P - Nephrology Assessment/Plan (1) End-stage renal disease on peritoneal dialysis: Assessment/Problem Details: Patient was recently started on peritoneal dialysis for progressive CKD s/p partial left nephrectomy for renal cell cancer and currently with proteinuria. He normally follow-up with Dr. Winchester in [place] and he was started on Jean dialysis on June 2023 (2) Fever: Assessment/Problem Details: Patient presents with fever and abdominal pain however PD fluid cell count showed WBCs count 67 with neutrophils 25% ruling out possibility of peritonitis. Blood culture grew Staph aureus. 2D echocardiogram revealed aortic valve endocarditis (3) Abdominal pain: Assessment/Problem Details: Patient presented with abdominal pain that has resolved on antibiotics. PD fluid analysis was not suggestive of peritonitis. (4) Hypertensive chronic kidney disease with stage 5 chronic kidney disease or end stage renal disease: Assessment/Problem Details: Blood pressure is well-controlled on multiple blood pressure medications. (5) Renal mass of unknown nature: Assessment/Problem Details: CT scan of the abdomen from [facility] was reviewed and the patient had 6.6 cm mass arising from the lower pole of the right kidney suggestive of possible neoplasm. Renal ultrasound showed hemorrhagic cyst not mass Plan * Will continue doing CAPD while inpatient with 1 exchange every 4 hours with filling volume of 2 L. Will continue using 2.5% dextrose solution * PD fluid culture is negative. Patient does not have peritonitis. * Continue heparin 1000 units to each bag 2 L PD fluid * ID is following. Currently on vancomycin for staph bacteremia .Patient need PICC line placement to administer outpatient IV vancomycin for 6 weeks. pharm acy to dose antibiotics for PD patient * Continue gentamicin cream 1% at exit site daily * Continue nystatin 400,000 units every 8 hours orally for fungal prophylaxis since he is on antibiotics. * Monitor daily intake and output and renal panel to adjust dialysis prescriptions and medications as indicated. Documented By: Reece Rodriguez MD 09/22/231217 Signed By: <Electronically signed by Reece Rodriguez MD> 09/22/[address] [facility] Work Phone: 1([phone]) 443-826812-01-2023 Hospital Discharge instructions Additional Instructions Pharmacy to dose vancomycin Maintain and perform routine care to right arm PICC line-- placed on 09/22/23 *Routine flushes and care per protocol *Continue IV vancomycin for a total of 6 weeks Continue peritoneal dialysis treatments as before Continue gentamicin cream 1% [facility] PD [facility] Work Phone: [phone]) 407-112711-30-2023 [facility] Progress note Author Reece Rodriguez [facility] September 21, 2023 1:02pmNote Date/TimeNov2022 1:02pmFIRVictoria Ville [id number] Nephrology Progress Note Signed Patient: Luis Chong III MR#: [id number] : 1955 Acct:[id number] Age/Sex: 68 / M Adm Date: 3 Loc: Room: [address] [place] [address] Type: ADM IN Attending Dr: Adam Judge MD Copies to: ~ Date of Service: 09/21/2023 Subjective Subjective Narrative: Mr. Chong is a 68-year-old -Nepalese male with history of ESRD who was just started PD underthe care of Dr. Winchester in [facility]. Patient has renalcell carcinoma s/p partial left nephrectomy in 1999. Patient was just recently started PD on June 2023 and he uses a cycler at home with help of his . Patient presented to ER minister assistant on 09/16 with altered mental status and abdominal pain. Evaluation in ER showed fever [address] scan of the abdomen and pelvis was obtained that showed 6.6 cm mass arising from the left lower pole of the right kidney suggestive of malignancy. CT scan was done without contrast. PD catheter was in place with no other significant intra-a bdominal abnormalities. Patient was loaded empirically with IV vancomycin 2 g and piperacillin/tazobactam. Unfortunately no PD fluid was obtained for Gram stain or culture since [facility] has distribution engineering technologist with PD procedures. Subsequently, the patient was transferred to [facility] for management. Patient was recently admitted at [facility] on July 2023 with slurredspeech and right facial droop and he was evaluated by neurology for possible CVA. 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 Interval history: Patient was seen and examined in his room. Patient denied any difficulties in inflow or outflow of PD fluid. Remains on vancomycin for Staph aureus bacteremia with endocarditis. Waiting onPICC line placement. Patient remains on room air. Stable blood pressure Denied nausea vomiting. Patient is seen today while draining PD fluid Exam Physical Exam Vital Signs: Temp Pulse Resp BP Pulse Ox O2 Del Method 98.2 F 92 H 16 171/85 H 97 Room Air 09/21/23 08:00 09/21/23 08:00 09/21/23 08:00 09/21/23 08:00 09/21/23 08:00 09/21/23 08:00 Narrative: General: No acute distress Head :atraumatic normocephalic Eyes: PERRLA. Neck: no JVD no bruit. Heart: S1-S2. RRR Respiratory: Clear to auscultation. No wheezing. No crackles Abdomen: Soft, positive bowel sounds,no tenderness. PD catheter in place Neurology: Awake alert oriented x3. No focal deficits Extremity. No cyanosis. Trace edema of lower extremities Skin: No skin rash Objective Intake and Output I&O: Intake & Output 09/18/23 09/19/23 09/20/23 09/21/23 23:59 23:59 23:59 23:59 Intake Total 69357 / 81123 97008 / 53005 72493 / 93482 4550 / 4550 Output Total 66598 / 06038 5700 / 5700 32283 / 27095 4600 / 4600 Balance 4385 / 4385 7200 / 7200 30 / 30 -50 / -50 Weight 122.8 kg 124 kg 122 kg 122.6 kg Meds and Allergies Meds: Active Medications Acetaminophen (Acetaminophen 500 Mg Tablet) 1,000 mg PO Q6H PRN PRN Reason: Fever or Pain Stop: 09/15/24 13:12 Last Admin: 09/18/23 00:53 Dose: 1,000 mg Acetaminophen/Butalbital/Caffeine (Butalb/Acetamin/Caffeine 50-325-40 1 Tab Tablet) 1 tab PO Q6H PRN PRN Reason: Headache Stop: 09/18/24 15:46 Last Admin: 09/20/23 07:01 Dose: 1 tab Atorvastatin Calcium (Atorvastatin 80 Mg Tablet) 80 mg PO QHS RYAN Stop: 09/15/24 21:59 Last Admin: 09/20/23 21:49 Dose: 80 mg Brimonidine Tartrate (Brimonidine 0.2% Op Soln 100 Drops/5 Ml Bottle) 1 drops EYE-BOTH BID RYAN Stop: 09/15/24 20:59 Last Admin: 09/21/23 09:25 Dose: 1 drops Dorzolamide HCl (Dorzolamide 2% Op Soln 200 Drops/10 Ml Bottle) 1 drops EYE-BOTH BID RYAN Stop: 09/15/24 20:59 Last Admin: 09/21/23 09:25 Dose: 1 drops Furosemide (Furosemide 40 Mg Tablet) 40 mg PO BID [facility] Stop: 09/16/24 20:59 Gentamicin Sulfate (Gentamicin 0.1% Cream 15 Gm Tube) 1 applic TOPICAL DAILY RYAN Stop: 09/15/24 13:59 Last Admin: 09/21/23 09:26 Dose: 1 applic Heparin Sodium (Porcine) (Heparin 5,000 Unit/Ml Vial) 5,000 unit SUBCUT Q8HR RYAN Stop: 09/16/24 15:19 Last Admin: 09/21/23 05:20 Dose: Not Given Heparin Sodium (Porcine) (Heparin 1,000 Unit/Ml) 1,000 unit INTRAPERIT Q4HR RYAN Stop: 09/18/24 12:59 Last Admin: 09/21/23 10:59 Dose: 1,000 unit Hydralazine HCl (Hydralazine 50 Mg Tablet) 50 mg PO TID [facility] Stop: 09/20/24 13:59 Ketorolac Tromethamine (Ketorolac Tromethamine 15 Mg/Ml Vial) 15 mg IV-PUSH Q6HPRN PRN Reason: Moderate Pain / Fever Stop: 09/21/23 13:34 Last Admin: 09/20/23 07:01 Dose: 15 mg Latanoprost (Latanoprost 0.005% Op Soln 50 Drops/2.5 Ml Bottle) 1 drops EYE-LEFT HS [facility] Stop: 09/15/24 21:59 Last Admin: 09/20/23 21:50 Dose: 1 drops Magnesium Oxide (Magnesium Oxide 400 Mg Tablet) 400 mg PO DAILY RYAN Stop: 09/16/24 08:59 Last Admin: 09/21/23 09:25 Dose: 400 mg Nystatin (Nystatin Susp 500,000 Unit/5 Ml Udc) 400,000 unit PO TID RYAN Stop: 09/15/24 14:29 Last Admin: 09/21/23 09:26 Dose: 400,000 unit Ondansetron HCl (Ondansetron 4 Mg/2 Ml Vial) 4 mg IV-PUSH Q4H PRN PRN Reason: Nausea And Vomiting Stop: 09/16/24 11:28 Last Admin: 09/19/23 15:10 Dose: 4 mg Pantoprazole Sodium (Pantoprazole 40 Mg Tablet.) 40 mg PO BID RYAN Stop: 09/15/24 20:59 Last Admin: 09/21/23 09:25 Dose: 40 mg Pilocarpine HCl (Pilocarpine 2% Op Soln 300 Drops/15 Ml Bottle) 1 drops EYE-LEFT BID RYAN Stop: 09/15/24 20:59 Last Admin: 09/21/23 09:28 Dose: 1 drops Polyethylene Glycol (Polyethylene Glycol 3350 17 Gm Powd.Pack) 17 gm PO DAILY RYAN Stop: 09/16/24 08:59 Last Admin: 09/21/23 09:28 Dose: Not Given Sodium Chloride (Sodium Chloride 0.9 % 10 Ml Syringe) 0 ml IV-PUSH PRN PRN PRN Reason: Flush Stop: 09/20/24 10:05 Timolol Maleate (Timolol Mal 0.5% Op Soln 100 Drops/5 Ml Bottle) 1 drops EYE- BOTH BID RYAN Stop: 09/15/24 20:59 Last Admin: 09/21/23 09:28 Dose: 1 drops Valsartan (Valsartan 80 Mg Tablet) 80 mg PO DAILY RYAN Stop: 09/17/24 08:59 Last Admin: 09/18/23 08:39 Dose: 80 mg Vancomycin HCl (Vancomycin - Pharmacy Dosing 1 Each Miscell) 1 each IV ONCE PRN; Protocol PRN Reason: ZZ.Pharmacy Consult Verapamil HCl (Verapamil Er (Sr) 240 Mg Tablet.Er) 240 mg PO DAILY RYAN Stop: 09/17/24 08:59 Last Admin: 09/21/23 09:25 Dose: 240 mg Vitamin B Complex/Vit C/Folic Acid (Folic Acid/Vit Bcomp,C 1 Tab Tablet) 1 tab PO DAILY RYAN Stop: 09/16/24 08:59 Last Admin: 09/21/23 09:25 Dose: 1 tab Allergies cephalexin [From Keflex] Adverse Reaction (Verified 08/09/23 11:19) Itching Results Labs 09/21/23 06:30 09/21/23 06:30 Labs: 09/21/23 06:30 BUN 38 H Creatinine 10.78 H D Radiology Impressions Impressions - last 24 hours: Any impression(s) listed above is documentation that was entered by the reading physician into a diagnostic report(s) for Luis Chong III. I have reviewed the report(s) and am incorporating any findings in the treatment plan of this patient where applicable. A&P - Nephrology Assessment/Plan (1) End-stage renal disease on peritoneal dialysis: Assessment/Problem Details: Patient was recently started on peritoneal dialysis for progressive CKD s/p partial left nephrectomy for renal cell cancer and currently with proteinuria. He normally follow-up with Dr. Winchester in [place] and he was started on Jean dialysis on June 2023 (2) Fever: Assessment/Problem Details: Patient presents with fever and abdominal pain however PD fluid cell count showed WBCs count 67 with neutrophils 25% ruling out possibility of peritonitis. Blood culture grew Staph aureus. 2D echocardiogram revealed aortic valve endocarditis (3) Abdominal pain: Assessment/Problem Details: Patient presented with abdominal pain that has resolved on antibiotics. PD fluid analysis was not suggestive of peritonitis. (4) Hypertensive chronic kidney disease with stage 5 chronic kidney disease or end stage renal disease: Assessment/Problem Details: Blood pressure is well-controlled on multiple blood pressure medications. (5) Renal mass of unknown nature: Assessment/Problem Details: CT scan of the abdomen from [place] [facility] was reviewed and the patient had 6.6 cm mass arising from the lower pole of the right kidney suggestive of possible neoplasm. Renal ultrasound showed hemorrhagic cyst not mass Plan * Will continue doing CAPD while inpatient with 1 exchange every 4 hours with filling volume of 2 L. Will continue using 2.5% dextrose solution * PD fluid culture is negative. Patient does not have peritonitis. * Continue heparin 1000 units to each bag 2 L PD fluid * ID is following. Currently on vancomycin for staph bacteremia .Patient need PICC line placement to administer outpatient IV vancomycin for 6 weeks. pharmacy to dose antibiotics for PD patient * Continue gentamicin cream 1% at exit site daily * Continue nystatin 400,000 units every 8 hours orally for fungal prophylaxis since he is on antibiotics. * Monitor daily intake and output and renal panel to adjust dialysis pres criptions and medicationsas indicated. Documented By: Reece Rodriguez MD 09/21/23 1251 Signed By: <Electronically signed by Reece Rodriguez MD> 09/21/[address] [facility] Work Phone: [phone]) 718-693511-29-2023 Progress note Author Adam Judge [facility] September 20, 2023 3:17pmNote Date/TimeNovember 2022 3:[place] [address] Hospitalist Progress Note Signed Patient: Luis Chong III MR#: [id number] : 1955 Acct:[id number] Age/Sex: 68 / M Adm Date: 3 Loc: Room: [address] [place] [address] Type: ADM IN Attending Dr: Adam Judge MD Copies to: ~ Date of Service: 09/20/2023 Subjective Subjective Narrative: Attending note: I saw the patient personally on the day of encounter. I reviewed the relevant history, and performed the gregory elements of the physical examination. I reviewedthe relevant laboratory workup, radiological studies and the current treatment plan. I formulated the plan of care and confirmed it with the re sident/student/CITIZENSHIP INSTRUCTOR. Reassessment on a 68-year-old male who was admitted to the hospitalist service for rule out SBP. Seen and evaluated in his room where he is resting comfortably in bed. His family members are present they do have some questions about his diagnosis, treatment plan. We discussed his bacterial endocarditis, as wellas need for PICC line. The patient does note some mild anxiety over needles however he has been able to receive multiple blood draws without significant issue. Remains hemodynamically stable and afebrile x 24 hours. Remains withoutleukocytosis. Repeat blood cultures at no growth x 2 days. Exam Physical Exam Vital Signs: Temp Pulse Resp BP Pulse Ox O2 Del Method 98.1 F 84 17 127/71 96 Room Air 09/20/23 09:03 09/20/23 09:03 09/20/23 09:03 09/20/23 09:03 09/20/23 09:03 09/20/23 09:03 Narrative: General appearance: No acute distress, alert and oriented x3. Eyes: No conjunctival injection. No nystagmus. HEENT: The external ears and nose appear grossly normal. Cardiovascular: Regular rate and rhythm, no murmurs rubs gallops. Pulses are 2+and symmetric throughout. Neck: trachea is midline Respiratory: Clear to auscultation bilaterally, no wheezes rales or rhonchi. Gastrointestinal: Soft, nontender abdomen. No distention. No rebound, guarding,organomegaly noted. Peritoneal dialysis catheter is in place without surrounding evidence of breakdown Neurological exam: Moves all extremities without difficulty. Alert and oriented x3. No focal neurological deficits. Musculoskeletal: No obvious deformity. No obvious effusion. Objective Lab Results 09/20/23 06:52 09/20/23 06:52 Microbiology Results Microbiology 09/18/23 08:20 Blood - Left Antecubital Blood Culture - Preliminary No Growth 2 Days 09/18/23 08:19 Blood - Right Antecubital Blood Culture - Preliminary No Growth 2 Days 09/16/23 13:52 Blood - Right Antecubital Blood Culture - Final Staphylococcus aureus 09/16/23 13:52 Blood - Right Antecubital Bacterial ID (NA Multiplex Assay) -Final 09/17/23 09:05 Sputum - Expectorated Aerobic Culture - Final Heavy Normal Respiratory Ya 2 Days 09/17/23 09:05 Sputum - Expectorated Gram Stain - Final Meds Allergies and Active Meds Allergies cephalexin [From Keflex] Adverse Reaction (Verified 08/09/23 11:19) Itching Active Meds: Active Medications Generic Name Dose Route Start Last Admin Trade Name Freq PRN Reason Stop Dose Admin Acetaminophen 1,000 mg 09/16/23 13:13 09/18/23 00:53 Acetaminophen 500 Mg Tablet PO 09/15/24 13:12 1,000 mg Q6H PRN Administration Fever or Pain Acetaminophen/Butalbital/Caffeine 1 tab 09/19/23 15:47 09/20/23 07:01 Butalb/Acetamin/Caffeine 50-325-40 1 Tab Tablet PO 09/18/24 15:46 1 tab Q6H PRN Administration Headache Atorvastatin Calcium 80 mg 09/16/23 22:00 09/19/23 21:14 Atorvastatin 80 Mg Tablet PO 09/15/24 21:59 80 mg QHS RYAN Administration Brimonidine Tartrate 1 drops 09/16/23 21:00 09/20/23 08:40 Brimonidine 0.2% Op Soln 100 Drops/5 Ml Bottle EYE-BOTH 09/15/24 20:59 1 drops BID RYAN Administration Dorzolamide HCl 1 drops 09/16/23 21:00 09/20/23 08:40 Dorzolamide 2% Op Soln 200 Drops/10 Ml Bottle EYE-BOTH 09/15/24 20:59 1 drops BID RYAN Administration Furosemide 40 mg 09/17/23 21:00 Furosemide 40 Mg Tablet PO 09/16/24 20:59 BID RYAN Gentamicin Sulfate 1 applic 09/16/23 14:00 09/20/23 08:40 Gentamicin 0.1% Cream 15 Gm Tube TOPICAL 09/15/24 13:59 1 applic DAILY RYAN Administration Heparin Sodium (Porcine) 5,000 unit 09/17/23 15:20 09/20/23 05:14 Heparin 5,000 Unit/Ml Vial SUBCUT 09/16/24 15:19 Not Given Q8HR RYAN Heparin Sodium (Porcine) 1,000 unit 09/19/23 13:00 09/20/23 09:01 Heparin 1,000 Unit/Ml INTRAPERIT 09/18/24 12:59 1,000 unit Q4HR RYAN Administration Hydralazine HCl 50 mg 09/17/23 21:00 09/20/23 08:39 Hydralazine 50 Mg Tablet PO 09/16/24 20:59 50 mg BID RYAN Administration Ketorolac Tromethamine 15 mg 09/16/23 13:35 09/20/23 07:01 Ketorolac Tromethamine 15 Mg/Ml Vial IV-PUSH 09/21/23 13:34 15 mg Q6H PRN Administration Moderate Pain / Fever Latanoprost 1 drops 09/16/23 22:00 09/19/23 21:16 Latanoprost 0.005% Op Soln 50 Drops/2.5 Ml Bottle EYE-LEFT 09/15/24 21:59 1drops HS RYAN Administration Magnesium Oxide 400 mg 09/17/23 09:00 09/20/23 08:39 Magnesium Oxide 400 Mg Tablet PO 09/16/24 08:59 400 mg DAILY RYAN Administration Nystatin 400,000 unit 09/16/23 14:30 09/20/23 08:39 Nystatin Susp 500,000 Unit/5 Ml Udc PO 09/15/24 14:29 400,000 unit TID RYAN Administration Ondansetron HCl 4 mg 09/17/23 11:29 09/19/23 15:10 Ondansetron 4 Mg/2 Ml Vial IV-PUSH 09/16/24 11:28 4 mg Q4H PRN Administration Nausea And Vomiting Pantoprazole Sodium 40 mg 09/16/23 21:00 09/20/23 08:39 Pantoprazole 40 Mg Tablet.Dr PO 09/15/24 20:59 40 mg BID RYAN Administration Pilocarpine HCl 1 drops 09/16/23 21:00 09/20/23 08:40 Pilocarpine 2% Op Soln 300 Drops/15 Ml Bottle EYE-LEFT 09/15/24 20:59 1 drops BID RYAN Administration Polyethylene Glycol 17 gm 09/17/23 09:00 09/20/23 08:39 Polyethylene Glycol 3350 17 Gm Powd.Pack PO 09/16/24 08:59 17 gm DAILY RYAN Administration Timolol Maleate 1 drops 09/16/23 21:00 09/20/23 08:40 Timolol Mal 0.5% Op Soln 100 Drops/5 Ml Bottle EYE-BOTH 09/15/24 20:59 1 drops BID RYAN Administration Valsartan 80 mg 09/18/23 09:00 09/18/23 08:39 Valsartan 80 Mg Tablet PO 09/17/24 08:59 80 mg DAILY RYAN Administration Vancomycin HCl 1 each 09/16/23 12:55 Vancomycin - Pharmacy Dosing 1 Each Miscell IV ONCE PRN ZZ.Pharmacy Consult Protocol Verapamil HCl 240 mg 09/18/23 09:00 09/20/23 08:39 Verapamil Er (Sr) 240 Mg Tablet.Er PO 09/17/24 08:59 240 mg DAILY RYAN Administration Vitamin B Complex/Vit C/Folic Acid 1 tab 09/17/23 09:00 09/20/23 08:39 Folic Acid/Vit Bcomp,C 1 Tab Tablet PO 09/16/24 08:59 1 tab DAILY RYAN Administration A&P - Hospitalist Assessment/Plan (1) Aortic valve endocarditis: (2) Bacteremia due to Staphylococcus aureus: (3) End-stage renal disease on peritoneal dialysis: (4) (HFpEF) heart failure with preserved ejection fraction: (5) Anemia of renal disease: Plan Impression: This is a 68-year-old male with past medical history of CKD and ESRD on peritoneal dialysis, hypertension, hyperlipidemia who is being monitored on the floor for rule out SBP. Peritoneal fluid is reassuring, repeat blood cultures no growth x 2 days. Afebrile and hemodynamically stable x 24 hours Plan: 1) Staph aureus bacteremia/bacterial endocarditis: Antibiotics narrowed to vancomycin monotherapy. Infectious disease on board, waiting for the results before length of stay is determined. Clinical presentation and vital signs remain reassuring. Continue to monitor CBCs. Patient will need a PICC line which is to be placed tomorrow, will require multiple weeks of IV antibiotics. 2) ESRD on peritoneal dialysis: Nephrology on board, managing dialysis coordination. Vancomycin dosing per pharmacy. 3) HFrEF: Initial concern for fluid overload state, holding off on IV fluid administration. Echocardiogram revealed aortic valve endocarditis, see above. Lung sounds clear on my examination today. 4) chronic medical conditions: Continue home medications as reconciled DVT prophylaxis: Heparin Diet: Renal CODE STATUS: Full code Documented By: Mehran Lynch DO, RES 3 [id number] Signed By: <Electronically signed by DO JONNY Lynch> 09/20/23 1516 <Electronically signed by Adam Judge MD> 09/20/23 [facility] Work Phone: [phone]) 506-371811-29-2023 Progress note Author [facility]ece [facility] September 20, 2023 1:26pmNote Date/TimeNovember 2022 1:22[place] [address] Nephrology Progress Note Signed Patient: Luis Chong III MR#: [id number] : 1955 Acct:[id number] Age/Sex: 68 / M Adm Date: 3 Loc: Room: [address] [place] [address] Type: ADM IN Attending Dr: Adam Judge MD Copies to: ~ Date of Service: 09/20/2023 Subjective Subjective Narrative: Mr. Chong is a 68-year-old -Nepalese male with history of ESRD who was just started PD underthe care of Dr. Winchester in [facility]. Patient has renalcell carcinoma s/p partial left nephrectomy in 1999. Patient was just recently started PD on June 2023 and he uses a cycler at home with help of his . Patient presented to ER minister assistant on 09/16 with altered mental status and abdominal pain. Evaluation in ER showed fever [address] scan of the abdomen and pelvis was obtained that showed 6.6 cm mass arising from the left lower pole of the right kidney suggestive of malignancy. CT scan was done without contrast. PD catheter was in place with no other significant intra-a bdominal abnormalities. Patient was loaded empirically with IV vancomycin 2 g and piperacillin/tazobactam. Unfortunately no PD fluid was obtained for Gram stain or culture since [facility] has distribution engineering technologist with PD procedures. Subsequently, the patient was transferred to [facility] for management. Patient was recently admitted at [facility] on July 2023 with slurredspeech and right facial droop and he was evaluated by neurology for possible CVA. 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 Interval history: Patient was seen and examined in his room. Denied any complaint. PD fluid culture remains negative.Blood culture grew staph.2D Echocardiogram showed aortic valve vegetation Currently only on vancomycin Patient had inflow difficulty yesterday which resolved with flushing PD cath. IPheparin was added to PD fluid yesterday. Patient remains on room air. Stable blood pressure Exam Physical Exam Vital Signs: Temp Pulse Resp BP Pulse Ox O2 Del Method 98.1 F 84 17 127/71 96 Room Air 09/20/23 09:03 09/20/23 09:03 09/20/23 09:03 09/20/23 09:03 09/20/23 09:03 09/20/23 09:03 Narrative: General: No acute distress Head :atraumatic normocephalic Eyes: PERRLA. Neck: no JVD no bruit. Heart: S1-S2. RRR Respiratory: Clear to auscultation. No wheezing. No crackles Abdomen: Soft, positive bowel sounds,no tenderness. PD catheter in place Neurology: Awake alert oriented x3. No focal deficits Extremity. No cyanosis. Trace edema of lower extremities Skin: No skin rash Objective Intake and Output I&O: Intake & Output 09/17/23 09/18/23 09/19/23 09/20/23 23:59 23:59 23:59 23:59 Intake Total 78191 / 73391 33291 / 31592 82613 / 74315 8000 / 8000 Output Total 8700 / 8700 95512 / 14891 5700 / 5700 6850 / 6850 Balance 1350 / 1350 4385 / 4385 7200 / 7200 1150 / 1150 Weight 130.5 kg 122.8 kg 124 kg 122 kg Meds and Allergies Meds: Active Medications Acetaminophen (Acetaminophen 500 Mg Tablet) 1,000 mg PO Q6H PRN PRN Reason: Fever or Pain Stop: 09/15/24 13:12 Last Admin: 09/18/23 00:53 Dose: 1,000 mg Acetaminophen/Butalbital/Caffeine (Butalb/Acetamin/Caffeine 50-325-40 1 Tab Tablet) 1 tab PO Q6H PRN PRN Reason: Headache Stop: 09/18/24 15:46 Last Admin: 09/20/23 07:01 Dose: 1 tab Atorvastatin Calcium (Atorvastatin 80 Mg Tablet) 80 mg PO QHS RYAN Stop: 09/15/24 21:59 Last Admin: 09/19/23 21:14 Dose: 80 mg Brimonidine Tartrate (Brimonidine 0.2% Op Soln 100 Drops/5 Ml Bottle) 1 drops EYE-BOTH BID RYAN Stop: 09/15/24 20:59 Last Admin: 09/20/23 08:40 Dose: 1 drops Dorzolamide HCl (Dorzolamide 2% Op Soln 200 Drops/10 Ml Bottle) 1 drops EYE-BOTH BID RYAN Stop: 09/15/24 20:59 Last Admin: 09/20/23 08:40 Dose: 1 drops Furosemide (Furosemide 40 Mg Tablet) 40 mg PO BID RYAN Stop: 09/16/24 20:59 Gentamicin Sulfate (Gentamicin 0.1% Cream 15 Gm Tube) 1 applic TOPICAL DAILY RYAN Stop: 09/15/24 13:59 Last Admin: 09/20/23 08:40 Dose: 1 applic Heparin Sodium (Porcine) (Heparin 5,000 Unit/Ml Vial) 5,000 unit SUBCUT Q8HR RYAN Stop: 09/16/24 15:19 Last Admin: 09/20/23 05:14 Dose: Not Given Heparin Sodium (Porcine) (Heparin 1,000 Unit/Ml) 1,000 unit INTRAPERIT Q4HR RYAN Stop: 09/18/24 12:59 Last Admin: 09/20/23 09:01 Dose: 1,000 unit Hydralazine HCl (Hydralazine 50 Mg Tablet) 50 mg PO BID RYAN Stop: 09/16/24 20:59 Last Admin: 09/20/23 08:39 Dose: 50 mg Ketorolac Tromethamine (Ketorolac Tromethamine 15 Mg/Ml Vial) 15 mg IV-PUSH Q6HPRN PRN Reason: Moderate Pain / Fever Stop: 09/21/23 13:34 Last Admin: 09/20/23 07:01 Dose: 15 mg Latanoprost (Latanoprost 0.005% Op Soln 50 Drops/2.5 Ml Bottle) 1 drops EYE-LEFT HS RYAN Stop: 09/15/24 21:59 Last Admin: 09/19/23 21:16 Dose: 1 drops Magnesium Oxide (Magnesium Oxide 400 Mg Tablet) 400 mg PO DAILY RYAN Stop: 09/16/24 08:59 Last Admin: 09/20/23 08:39 Dose: 400 mg Nystatin (Nystatin Susp 500,000 Unit/5 Ml Udc) 400,000 unit PO TID RYAN Stop: 09/15/24 14:29 Last Admin: 09/20/23 08:39 Dose: 400,000 unit Ondansetron HCl (Ondansetron 4 Mg/2 Ml Vial) 4 mg IV-PUSH Q4H PRN PRN Reason: Nausea And Vomiting Stop: 09/16/24 11:28 Last Admin: 09/19/23 15:10 Dose: 4 mg Pantoprazole Sodium (Pantoprazole 40 Mg Tablet.Dr) 40 mg PO BID RYAN Stop: 09/15/24 20:59 Last Admin: 09/20/23 08:39 Dose: 40 mg Pilocarpine HCl (Pilocarpine 2% Op Soln 300 Drops/15 Ml Bottle) 1 drops EYE-LEFT BID RYAN Stop: 09/15/24 20:59 Last Admin: 09/20/23 08:40 Dose: 1 drops Polyethylene Glycol (Polyethylene Glycol 3350 17 Gm Powd.Pack) 17 gm PO DAILY RYAN Stop: 09/16/24 08:59 Last Admin: 09/20/23 08:39 Dose: 17 gm Timolol Maleate (Timolol Mal 0.5% Op Soln 100 Drops/5 Ml Bottle) 1 drops EYE- BOTH BID RYAN Stop: 09/15/24 20:59 Last Admin: 09/20/23 08:40 Dose: 1 drops Valsartan (Valsartan 80 Mg Tablet) 80 mg PO DAILY RYAN Stop: 09/17/24 08:59 Last Admin: 09/18/23 08:39 Dose: 80 mg Vancomycin HCl (Vancomycin - Pharmacy Dosing 1 Each Miscell) 1 each IV ONCE PRN; Protocol PRN Reason: ZZ.Pharmacy Consult Verapamil HCl (Verapamil Er (Sr) 240 Mg Tablet.Er) 240 mg PO DAILY RYAN Stop: 09/17/24 08:59 Last Admin: 09/20/23 08:39 Dose: 240 mg Vitamin B Complex/Vit C/Folic Acid (Folic Acid/Vit Bcomp,C 1 Tab Tablet) 1 tab PO DAILY RYAN Stop: 09/16/24 08:59 Last Admin: 09/20/23 08:39 Dose: 1 tab Allergies cephalexin [From Keflex] Adverse Reaction (Verified 08/09/23 11:19) Itching Results Labs 09/20/23 06:52 09/20/23 06:52 Labs: 09/20/23 06:52 BUN 44 H Creatinine 11.53 H D Radiology Impressions Impressions - last 24 hours: Impressions Chest CT 09/19/23 12:28 IMPRESSION: No acute findings seen within the chest. Small amount of ascites and free air seen within the abdomen likely related to the patient's dialysis. Impression dictated by: Mehran Eldridge Jr., D.O.09/19/2023 3:23 PM Dictation Location: [place] [address] Renal Ultrasound 09/19/23 12:29 IMPRESSION: NONVISUALIZATION OF THE LEFT KIDNEY NO OBSTRUCTIVE UROPATHY ON THE RIGHT. RIGHT RENAL CYSTS. Impression dictated by: Jessica Robison M.D.09/19/2023 5:07 PM Dictation Location: [place] [address] Any impression(s) listed above is documentation that was entered by the reading physician into a diagnostic report(s) for Luis Chong III. I have reviewed the report(s) and am incorporating any findings in the treatment plan of this patient where applicable. A&P - Nephrology Assessment/Plan (1) End-stage renal disease on peritoneal dialysis: Assessment/Problem Details: Patient was recently started on peritoneal dialysis for progressive CKD s/p partial left nephrectomy for renal cell cancer and currently with proteinuria. He normally follow-up with Dr. Winchester in [place] and he was started on [facility] dialysis on June 2023 (2) Fever: Assessment/Problem Details: Patient presents with fever and abdominal pain however PD fluid cell count showed WBCs count 67 with neutrophils 25% ruling out possibility of peritonitis. Blood culture grew Staph aureus. 2D echocardiogram revealed aortic valve endocarditis (3) Abdominal pain: Assessment/Problem Details: Patient presented with abdominal pain that has resolved on antibiotics. PD fluid analysis was not suggestive of peritonitis. (4) Hypertensive chronic kidney disease with stage 5 chronic kidney disease or end stage renal disease: Assessment/Problem Details: Blood pressure is well-controlled on multiple blood pressure medications. (5) Renal mass of unknown nature: Assessment/Problem Details: CT scan of the abdomen from [place] ER was reviewed and the patient had 6.6 cm mass arising from the lower pole of the right kidney suggestive of possible neoplasm. Renal ultrasound showed hemorrhagic cyst not mass Plan * Will continue doing CAPD while inpatient with 1 exchange every 4 hours with filling volume of 2 L. Will continue using 2.5% dextrose solution * PD fluid culture is negative. Patient does not have peritonitis. * Continue 1000 units to each bag 2 L PD fluid * ID is following. Currently on vancomycin for staph bacteremia .Patient need PICC line placement for outpatient IV vancomycin for 6 weeks. pharmacy to dose antibiotics for PD patient * Continue gentamicin cream 1% at exit site daily * Continue nystatin 400,000 units every 8 hours orally for fungal prophylaxis since he is on antibiotics. * Monitor daily intake and output and renal panel to adjust dialysis prescriptions and medications as indicated. Documented By: Reece Rodriguez MD 09/20/23 1319 Signed By: <Electronically signed by Reece Rodriguez MD> 09/20/23 1326 [facility] Work Phone: 1(941) 247-759111-28-2023 Progress note Author Adam Judge [facility] September 19, 2023 4:12pmNote Date/TimeNovember 2022 10:09[place] [id number] Hospitalist Progress Note Signed Patient: Luis Chong III MR#: [id number] : 1955 Acct:[id number] Age/Sex: 68 / M Adm Date: 3 Loc: 3T Room: 5D2474-6 Type: ADM IN Attending Dr: Adam Judge MD Copies to: ~ Date of Service: 09/19/2023 Subjective Subjective Narrative: Attending note: I saw the patient personally on the day of encounter. I reviewed the relevant history, and performed the gregory elements of the physical examination. I reviewedthe relevant laboratory workup, radiological studies and the current treatment plan. I formulated the plan of care and confirmed it with the re sident/student/CITIZENSHIP INSTRUCTOR. Reassessment on a 68-year-old male who was admitted to the hospitalist service for rule out SBP. When I evaluate the patient, he is resting comfortably in bed, his leukocytosis remains resolved. Dialyzed yesterday by nephrology. Resting comfortably in a chair when I see him, without complaint. Apparently has been having loose stools and as such the MiraLAX was held. Exam Physical Exam Vital Signs: Temp Pulse Resp BP Pulse Ox O2 Del Method 98.3 F 95 H 16 132/68 95 Room Air 09/19/23 08:00 09/19/23 04:00 09/19/23 08:00 09/19/23 08:00 09/19/23 08:00 09/19/23 08:00 Narrative: General appearance: No acute distress, alert and oriented x3. Eyes: No conjunctival injection. No nystagmus. HEENT: The external ears and nose appear grossly normal. Cardiovascular: Regular rate and rhythm, no murmurs rubs gallops. Pulses are 2+and symmetric throughout. Neck: trachea is midline Respiratory: Clear to auscultation bilaterally, no wheezes rales or rhonchi. Gastrointestinal: Soft, nontender abdomen. No distention. No rebound, guarding,organomegaly noted. Peritoneal dialysis catheter is in place without surrounding evidence of breakdown Neurological exam: Moves all extremities without difficulty. Alert and oriented x3. No focal neurological deficits. Musculoskeletal: No obvious deformity. No obvious effusion. No obvious lower extremity edema. Objective Lab Results 09/19/23 07:37 09/19/23 07:37 Microbiology Results Microbiology 09/17/23 09:05 Sputum - Expectorated Aerobic Culture - Final Heavy Normal Respiratory Ya 2 Days 09/17/23 09:05 Sputum - Expectorated Gram Stain - Final 09/18/23 08:20 Blood - Left Antecubital Blood Culture - Preliminary No Growth 1 Day 09/18/23 08:19 Blood - Right Antecubital Blood Culture - Preliminary No Growth 1 Day 09/16/23 18:00 Peritoneal Dialysis Fluid Aerobic Culture - Final 09/16/23 18:00 Peritoneal Dialysis Fluid Anaerobic Culture - Final No Anaerobes Isolated 3 Days 09/16/23 18:00 Peritoneal Dialysis Fluid Gram Stain - Final 09/16/23 13:52 Blood - Right Antecubital Blood Culture - Preliminary Staphylococcus aureus 09/16/23 13:52 Blood - Right Antecubital Bacterial ID (NA Multiplex Assay) -Final Meds Allergies and Active Meds Allergies cephalexin [From [facility]es] Adverse Reaction (Verified 08/09/23 11:19) Itching Active Meds: Active Medications Generic Name Dose Route Start Last Admin Trade Name Freq PRN Reason Stop Dose Admin Acetaminophen 1,000 mg 09/16/23 13:13 09/18/23 00:53 Acetaminophen 500 Mg Tablet PO 09/15/24 13:12 1,000 mg Q6H PRN Administration Fever or Pain Atorvastatin Calcium 80 mg 09/16/23 22:00 09/18/23 21:50 Atorvastatin 80 Mg Tablet PO 09/15/24 21:59 80 mg QHS RYAN Administration Brimonidine Tartrate 1 drops 09/16/23 21:00 09/19/23 09:26 Brimonidine 0.2% Op Soln 100 Drops/5 Ml Bottle EYE-BOTH 09/15/24 20:59 1 drops BID RYAN Administration Dorzolamide HCl 1 drops 09/16/23 21:00 09/19/23 09:26 Dorzolamide 2% Op Soln 200 Drops/10 Ml Bottle EYE-BOTH 09/15/24 20:59 1 drops BID RYAN Administration Furosemide 40 mg 09/17/23 21:00 Furosemide 40 Mg Tablet PO 09/16/24 20:59 BID RYAN Gentamicin Sulfate 1 applic 09/16/23 14:00 09/19/23 09:39 Gentamicin 0.1% Cream 15 Gm Tube TOPICAL 09/15/24 13:59 1 applic DAILY RYAN Administration Heparin Sodium (Porcine) 5,000 unit 09/17/23 15:20 09/19/23 05:50 Heparin 5,000 Unit/Ml Vial SUBCUT 09/16/24 15:19 Not Given Q8HR RYAN Heparin Sodium (Porcine) 1,000 unit 09/19/23 13:00 Heparin 1,000 Unit/Ml INTRAPERIT 09/18/24 12:59 Q4HR RYAN Hydralazine HCl 50 mg 09/17/23 21:00 09/19/23 09:26 Hydralazine 50 Mg Tablet PO 09/16/24 20:59 50 mg BID RYAN Administration Ketorolac Tromethamine 15 mg 09/16/23 13:35 Ketorolac Tromethamine 15 Mg/Ml Vial IV-PUSH 09/21/23 13:34 Q6H PRN Moderate Pain / Fever Latanoprost 1 drops 09/16/23 22:00 09/18/23 21:51 Latanoprost 0.005% Op Soln 50 Drops/2.5 Ml Bottle EYE-LEFT 09/15/24 21:59 1drops HS RYAN Administration Magnesium Oxide 400 mg 09/17/23 09:00 09/19/23 09:27 Magnesium Oxide 400 Mg Tablet PO 09/16/24 08:59 400 mg DAILY RYAN Administration Nystatin 400,000 unit 09/16/23 14:30 09/19/23 09:28 Nystatin Susp 500,000 Unit/5 Ml Udc PO 09/15/24 14:29 400,000 unit TID RYAN Administration Ondansetron HCl 4 mg 09/17/23 11:29 09/19/23 00:15 Ondansetron 4 Mg/2 Ml Vial IV-PUSH 09/16/24 11:28 4 mg Q4H PRN Administration Nausea And Vomiting Pantoprazole Sodium 40 mg 09/16/23 21:00 09/19/23 09:27 Pantoprazole 40 Mg Tablet.Dr PO 09/15/24 20:59 40 mg BID RYAN Administration Pilocarpine HCl 1 drops 09/16/23 21:00 09/19/23 09:28 Pilocarpine 2% Op Soln 300 Drops/15 Ml Bottle EYE-LEFT 09/15/24 20:59 1 drops BID RYAN Administration Polyethylene Glycol 17 gm 09/17/23 09:00 09/18/23 08:43 Polyethylene Glycol 3350 17 Gm Powd.Pack PO 09/16/24 08:59 Not Given DAILY RYAN Timolol Maleate 1 drops 09/16/23 21:00 09/19/23 09:27 Timolol Mal 0.5% Op Soln 100 Drops/5 Ml Bottle EYE-BOTH 09/15/24 20:59 1 drops BID RYAN Administration Valsartan 80 mg 09/18/23 09:00 09/18/23 08:39 Valsartan 80 Mg Tablet PO 09/17/24 08:59 80 mg DAILY RYAN Administration Vancomycin HCl 1 each 09/16/23 12:55 Vancomycin - Pharmacy Dosing 1 Each Miscell IV ONCE PRN ZZ.Pharmacy Consult Protocol Verapamil HCl 240 mg 09/18/23 09:00 09/19/23 09:27 Verapamil Er (Sr) 240 Mg Tablet.Er PO 09/17/24 08:59 240 mg DAILY RYAN Administration Vitamin B Complex/Vit C/Folic Acid 1 tab 09/17/23 09:00 09/19/23 09:26 Folic Acid/Vit Bcomp,C 1 Tab Tablet PO 09/16/24 08:59 1 tab DAILY RYAN Administration A&P - Hospitalist Assessment/Plan (1) Bacteremia due to Staphylococcus aureus: (2) End-stage renal disease on peritoneal dialysis: (3) (HFpEF) heart failure with preserved ejection fraction: (4) Anemia of renal disease: Plan Impression: This is a 68-year-old male with past medical history of CKD and ESRD on peritoneal dialysis, hypertension, hyperlipidemia who is being monitored on the floor for rule out SBP. Peritoneal fluid is reassuring, repeat blood cultures pending. Afebrile and hemodynamically stable x 24 hours Plan: 1) Staph aureus bacteremia: Antibiotics narrowed to vancomycin monotherapy. Infectious disease on board, waiting for the results before length of stay is determined. Clinical presentation and vital signs remain reassuring. Continue to monitor CBCs. 2) ESRD on peritoneal dialysis: Nephrology on board, managing dialysis coordination. Vancomycin dosing per pharmacy. 3) HFrEF: Initial concern for fluid overload state, holding off on IV fluid administration. Echocardiogram is ordered and pending. Lung sounds clear on myexamination today. 4) chronic medical conditions: Continue home medications as reconciled DVT prophylaxis: Heparin Diet: Renal CODE STATUS: Full code Documented By: Mehran Lynch DO, RES 3 [id number] Signed By: <Electronically signed by DO JONNY Lynch> 09/19/23 1009 <Electronically signed by Adam Judge MD> 09/19/23 1612 [facility] Work Phone: 1(587) 289-208611-28-2023 Progress note Author Reece JuárezWVUMed[facility] September 19, 2023 1:54pmNote Date/TimeNov2022 1:55pm[place] [address] Nephrology Progress Note Signed Patient: Luis Chong III MR#: [id number] : 1955 Acct:[id number] Age/Sex: 68 / M Adm Date: 3 Loc: Room: [address] [place] [address] Type: ADM IN Attending Dr: Adam Judge MD Copies to: ~ Date of Service: 09/19/2023 Subjective Subjective Narrative: Mr. Chong is a 68-year-old -Nepalese male with history of ESRD who was just started PD underthe care of Dr. Winchester in [facility]. Patient has renalcell carcinoma s/p partial left nephrectomy in 1999. Patient was just recently started PD on June 2023 and he uses a cycler at home with help of his . Patient presented to ER minister assistant on 09/16 with altered mental status and abdominal pain. Evaluation in ER showed fever [address] scan of the abdomen and pelvis was obtained that showed 6.6 cm mass arising from the left lower pole of the right kidney suggestive of malignancy. CT scan was done without contrast. PD catheter was in place with no other significant intra-a bdominal abnormalities. Patient was loaded empirically with IV vancomycin 2 g and piperacillin/tazobactam. Unfortunately no PD fluid was obtained for Gram stain or culture since [facility] has distribution engineering technologist with PD procedures. Subsequently, the patient was transferred to [facility] for management. Patient was recently admitted at [facility] on July 2023 with slurredspeech and right facial droop and he was evaluated by neurology for possible CVA. He was diagnosed with Uhtchinson's palsy and he was given prednisone. Interval history: Patient was seen and examined in his room. Denied any complaint. PD fluid culture remains negative.Blood culture grew staph. Currently only on vancomycin Continues to be on room air. There has been difficulty in draining PD fluid. Exam Physical Exam Vital Signs: Temp Pulse Resp BP Pulse Ox O2 Del Method 98.3 F 95 H 16 132/68 95 Room Air 09/19/23 08:00 09/19/23 04:00 09/19/23 08:00 09/19/23 08:00 09/19/23 08:00 09/19/23 08:00 Narrative: General: No acute distress Head :atraumatic normocephalic Eyes: PERRLA. Neck: no JVD no bruit. Heart: S1-S2. RRR Respiratory: Clear to auscultation. No wheezing. No crackles Abdomen: Soft, positive bowel sounds,no tenderness. PD catheter in place Neurology: Awake alert oriented x3. No focal deficits Extremity. No cyanosis. No edema Skin: No skin rash Objective Intake and Output I&O: Intake & Output 09/16/23 09/17/23 09/18/23 09/19/23 23:59 23:59 23:59 23:59 Intake Total 4710 / 4710 66722 / 18772 69963 / 47077 8100 / 8100 Output Total 4525 / 4525 8700 / 8700 98275 / 91478 2850 / 2850 Balance 185 / 185 1350 / 1350 4385 / 4385 5250 / 5250 Weight 132.3 kg 130.5 kg 122.8 kg 124 kg Meds and Allergies Meds: Active Medications Acetaminophen (Acetaminophen 500 Mg Tablet) 1,000 mg PO Q6H PRN PRN Reason: Fever or Pain Stop: 09/15/24 13:12 Last Admin: 09/18/23 00:53 Dose: 1,000 mg Atorvastatin Calcium (Atorvastatin 80 Mg Tablet) 80 mg PO QHS RYAN Stop: 09/15/24 21:59 Last Admin: 09/18/23 21:50 Dose: 80 mg Brimonidine Tartrate (Brimonidine 0.2% Op Soln 100 Drops/5 Ml Bottle) 1 drops EYE-BOTH BID RYAN Stop: 09/15/24 20:59 Last Admin: 09/19/23 09:26 Dose: 1 drops Dorzolamide HCl (Dorzolamide 2% Op Soln 200 Drops/10 Ml Bottle) 1 drops EYE-BOTH BID RYAN Stop: 09/15/24 20:59 Last Admin: 09/19/23 09:26 Dose: 1 drops Furosemide (Furosemide 40 Mg Tablet) 40 mg PO BID RYAN Stop: 09/16/24 20:59 Gentamicin Sulfate (Gentamicin 0.1% Cream 15 Gm Tube) 1 applic TOPICAL DAILY RYAN Stop: 09/15/24 13:59 Last Admin: 09/19/23 09:39 Dose: 1 applic Heparin Sodium (Porcine) (Heparin 5,000 Unit/Ml Vial) 5,000 unit SUBCUT Q8HR RYAN Stop: 09/16/24 15:19 Last Admin: 09/19/23 05:50 Dose: Not Given Heparin Sodium (Porcine) (Heparin 1,000 Unit/Ml) 1,000 unit INTRAPERIT Q4HR RYAN Stop: 09/18/24 12:59 Hydralazine HCl (Hydralazine 50 Mg Tablet) 50 mg PO BID RYAN Stop: 09/16/24 20:59 Last Admin: 09/19/23 09:26 Dose: 50 mg Ketorolac Tromethamine (Ketorolac Tromethamine 15 Mg/Ml Vial) 15 mg IV-PUSH Q6HPRN PRN Reason: Moderate Pain / Fever Stop: 09/21/23 13:34 Latanoprost (Latanoprost 0.005% Op Soln 50 Drops/2.5 Ml Bottle) 1 drops EYE-LEFT HS RYAN Stop: 09/15/24 21:59 Last Admin: 09/18/23 21:51 Dose: 1 drops Magnesium Oxide (Magnesium Oxide 400 Mg Tablet) 400 mg PO DAILY RYAN Stop: 09/16/24 08:59 Last Admin: 09/19/23 09:27 Dose: 400 mg Nystatin (Nystatin Susp 500,000 Unit/5 Ml Udc) 400,000 unit PO TID RYAN Stop: 09/15/24 14:29 Last Admin: 09/19/23 09:28 Dose: 400,000 unit Ondansetron HCl (Ondansetron 4 Mg/2 Ml Vial) 4 mg IV-PUSH Q4H PRN PRN Reason: Nausea And Vomiting Stop: 09/16/24 11:28 Last Admin: 09/19/23 00:15 Dose: 4 mg Pantoprazole Sodium (Pantoprazole 40 Mg Tablet.Dr) 40 mg PO BID RYAN Stop: 09/15/24 20:59 Last Admin: 09/19/23 09:27 Dose: 40 mg Pilocarpine HCl (Pilocarpine 2% Op Soln 300 Drops/15 Ml Bottle) 1 drops EYE-LEFT BID RYAN Stop: 09/15/24 20:59 Last Admin: 09/19/23 09:28 Dose: 1 drops Polyethylene Glycol (Polyethylene Glycol 3350 17 Gm Powd.Pack) 17 gm PO DAILY RYAN Stop: 09/16/24 08:59 Last Admin: 09/19/23 10:43 Dose: Not Given Timolol Maleate (Timolol Mal 0.5% Op Soln 100 Drops/5 Ml Bottle) 1 drops EYE- BOTH BID RYAN Stop: 09/15/24 20:59 Last Admin: 09/19/23 09:27 Dose: 1 drops Valsartan (Valsartan 80 Mg Tablet) 80 mg PO DAILY RYAN Stop: 09/17/24 08:59 Last Admin: 09/18/23 08:39 Dose: 80 mg Vancomycin HCl (Vancomycin - Pharmacy Dosing 1 Each Miscell) 1 each IV ONCE PRN; Protocol PRN Reason: ZZ.Pharmacy Consult Verapamil HCl (Verapamil Er (Sr) 240 Mg Tablet.Er) 240 mg PO DAILY RYAN Stop: 09/17/24 08:59 Last Admin: 09/19/23 09:27 Dose: 240 mg Vitamin B Complex/Vit C/Folic Acid (Folic Acid/Vit Bcomp,C 1 Tab Tablet) 1 tab PO DAILY RYAN Stop: 09/16/24 08:59 Last Admin: 09/19/23 09:26 Dose: 1 tab Allergies cephalexin [From Keflex] Adverse Reaction (Verified 08/09/23 11:19) Itching Results Labs 09/19/23 07:37 09/19/23 07:37 Labs: 09/19/23 07:37 BUN 46 H Creatinine 11.01 H D Radiology Impressions Impressions - last 24 hours: Any impression(s) listed above is documentation that was entered by the reading physician into a diagnostic report(s) for Luis Chong III. I have reviewed the report(s) and am incorporating any findings in the treatment plan of this patient where applicable. A&P - Nephrology Assessment/Plan (1) End-stage renal disease on peritoneal dialysis: Assessment/Problem Details: Patient was recently started on peritoneal dialysis for progressive CKD s/p partial left nephrectomy for renal cell cancer and currently with proteinuria. He normally follow-up with Dr. Winchester in [place] and he was started on [facility] dialysis on June 2023 (2) Fever: Assessment/Problem Details: Patient presents with fever and abdominal pain however PD fluid cell count showed WBCs count 67 with neutrophils 25% ruling out possibility of peritonitis. (3) Abdominal pain: Assessment/Problem Details: Patient presented with abdominal pain that has resolved on antibiotics. PD fluid analysis was not suggestive of peritonitis. (4) Hypertensive chronic kidney disease with stage 5 chronic kidney disease or end stage renal disease: Assessment/Problem Details: Blood pressure is well-controlled on multiple blood pressure medications. (5) Renal mass of unknown nature: Assessment/Problem Details: CT scan of the abdomen from [place] ER was reviewed and the patient had 6.6 cm mass arising from the lower pole of the right kidney suggestive of possible neoplasm. These need to be addressed as a outpatient after improvement of current infection. Plan * Will continue doing CAPD while inpatient with 1 exchange every 4 hours with filling volume of 2 L. Will continue using 2.5 dextrose solution * PD fluid culture is negative. Patient does not have peritonitis. * Will add heparin 1000 units to each bag 2 L PD fluid * ID is following. Currently on vancomycin for staph bacteremia Pharmacy to dose antibiotics for PDpatient * Continue gentamicin cream 1% at exit site daily * Continue nystatin 400,000 units every 8 hours orally for fungal prophylaxis since he is on antibiotics. * Monitor daily intake and output and renal panel to adjust dialysis prescriptions and medications as indicated. Documented By: Reece Rodriguez MD 09/19/23 531 Signed By: <Electronically signed by Reece Rodriguez MD> 09/19/[address] [facility] Work Phone: 1([phone]) [phone] Progress note Author Ron Ortega [facility] September 19, 2023 1:39pmNote Date/TimeNovember 2022 9:[address] [place] [address] Infect. Disease Progress Note Signed Patient: Luis Chong III MR#: [id number] : 1955 Acct:[id number] Age/Sex: 68 / M Adm Date: 3 Loc: Room: [address] [place] [address] Type: ADM IN Attending Dr: Adam Judge MD Copies to: ~ Date of Service: 09/19/2023 Subjective Interval history: Patient seen and examined this morning. He is resting comfortably in the recliner. Patient remains afebrile with stable vital signs. Denies any fever/chills. Patient does report some loose stools overnight but denies any abdominal pain, nausea, or vomiting. Exam Physical Exam Vital Signs: Temp Pulse Resp BP Pulse Ox O2 Del Method 98.3 F 95 H 16 132/68 95 Room Air 09/19/23 08:00 09/19/23 04:00 09/19/23 08:00 09/19/23 08:00 09/19/23 08:00 09/19/23 08:00 Narrative: General: No acute distress. Resting comfortably in bed. HEENT: Atraumatic, normocephalic. No scleral icterus. CV: Regular rate and rhythm. No murmurs, rubs, or gallops Respiratory: Clear to auscultation bilaterally. No wheezes, rhonchi, rales Abdominal: Soft,distended, nontender normoactive bowel sounds. PD catheter without signs of infection, no drainage or redness Extremities: No swelling, cyanosis, clubbing. No calf tenderness Neuro: No focal neurologic deficit. Alert, oriented to person place Psych: appropriate mood and affect, speech is clear Objective Labs CBC/BMP: CBC, BMP 09/18/23 09/18/23 09/19/23 08:20 08:20 07:37 Corrected WBC 4.9 5.9 Uncorrected WBC Count 4.9 5.9 RBC 3.49 L 3.89 L Hgb 10.5 L 11.5 L Hct 31.5 L 35.3 L Plt Count 98 L 131 L Sodium 136 Potassium 4.0 Chloride 100 Carbon Dioxide 27.3 Anion Gap 12.7 BUN 52 H Creatinine 11.72 H Calcium 8.0 L Labs: 09/18/23 08:20 BUN 52 H Creatinine 11.72 H Microbiology Microbiology: 09/17/23 09:05 Aerobic Culture - Final Sputum - Expectorated Heavy Normal Respiratory Ya 2 Days Gram Stain - Final 09/18/23 08:20 Blood Culture - Preliminary Blood - Left Antecubital No Growth 1 Day 09/18/23 08:19 Blood Culture - Preliminary Blood - Right Antecubital No Growth 1 Day 09/16/23 18:00 Aerobic Culture - Final Peritoneal Dialysis Fluid Anaerobic Culture - Final No Anaerobes Isolated 3 Days Gram Stain - Final 09/16/23 13:52 Blood Culture - Preliminary Blood - Right Antecubital Staphylococcus aureus Bacterial ID (NA Multiplex Assay) - Final Allergies and Medications Allergies and Active Meds Allergies cephalexin [From [employer]] Adverse Reaction (Verified 08/09/23 11:19) Itching Active Medications Acetaminophen (Acetaminophen 500 Mg Tablet) 1,000 mg PO Q6H PRN PRN Reason: Fever or Pain Stop: 09/15/24 13:12 Last Admin: 09/18/23 00:53 Dose: 1,000 mg Atorvastatin Calcium (Atorvastatin 80 Mg Tablet) 80 mg PO QHS RYAN Stop: 09/15/24 21:59 Last Admin: 09/18/23 21:50 Dose: 80 mg Brimonidine Tartrate (Brimonidine 0.2% Op Soln 100 Drops/5 Ml Bottle) 1 drops EYE-BOTH BID RYAN Stop: 09/15/24 20:59 Last Admin: 09/18/23 21:51 Dose: 1 drops Dorzolamide HCl (Dorzolamide 2% Op Soln 200 Drops/10 Ml Bottle) 1 drops EYE-BOTH BID RYAN Stop: 09/15/24 20:59 Last Admin: 09/18/23 21:51 Dose: 1 drops Furosemide (Furosemide 40 Mg Tablet) 40 mg PO BID RYAN Stop: 09/16/24 20:59 Gentamicin Sulfate (Gentamicin 0.1% Cream 15 Gm Tube) 1 applic TOPICAL DAILY RYAN Stop: 09/15/24 13:59 Last Admin: 09/18/23 08:39 Dose: 1 applic Heparin Sodium (Porcine) (Heparin 5,000 Unit/Ml Vial) 5,000 unit SUBCUT Q8HR RYAN Stop: 09/16/24 15:19 Last Admin: 09/19/23 05:50 Dose: Not Given Hydralazine HCl (Hydralazine 50 Mg Tablet) 50 mg PO BID RYAN Stop: 09/16/24 20:59 Last Admin: 09/18/23 21:50 Dose: 50 mg Ketorolac Tromethamine (Ketorolac Tromethamine 15 Mg/Ml Vial) 15 mg IV-PUSH Q6HPRN PRN Reason: Moderate Pain / Fever Stop: 09/21/23 13:34 Latanoprost (Latanoprost 0.005% Op Soln 50 Drops/2.5 Ml Bottle) 1 drops EYE-LEFT HS RYAN Stop: 09/15/24 21:59 Last Admin: 09/18/23 21:51 Dose: 1 drops Magnesium Oxide (Magnesium Oxide 400 Mg Tablet) 400 mg PO DAILY RYAN Stop: 09/16/24 08:59 Last Admin: 09/18/23 08:40 Dose: 400 mg Nystatin (Nystatin Susp 500,000 Unit/5 Ml Udc) 400,000 unit PO TID RYAN Stop: 09/15/24 14:29 Last Admin: 09/18/23 21:50 Dose: 400,000 unit Ondansetron HCl (Ondansetron 4 Mg/2 Ml Vial) 4 mg IV-PUSH Q4H PRN PRN Reason: Nausea And Vomiting Stop: 09/16/24 11:28 Last Admin: 09/19/23 00:15 Dose: 4 mg Pantoprazole Sodium (Pantoprazole 40 Mg Tablet.Dr) 40 mg PO BID [facility] Stop: 09/15/24 20:59 Last Admin: 09/18/23 21:50 Dose: 40 mg Pilocarpine HCl (Pilocarpine 2% Op Soln 300 Drops/15 Ml Bottle) 1 drops EYE-LEFT BID RYAN Stop: 09/15/24 20:59 Last Admin: 09/18/23 21:51 Dose: 1 drops Polyethylene Glycol (Polyethylene Glycol 3350 17 Gm Powd.Pack) 17 gm PO DAILY RYAN Stop: 09/16/24 08:59 Last Admin: 09/18/23 08:43 Dose: Not Given Timolol Maleate (Timolol Mal 0.5% Op Soln 100 Drops/5 Ml Bottle) 1 drops EYE- BOTH BID RYAN Stop: 09/15/24 20:59 Last Admin: 09/18/23 21:50 Dose: 1 drops Valsartan (Valsartan 80 Mg Tablet) 80 mg PO DAILY RYAN Stop: 09/17/24 08:59 Last Admin: 09/18/23 08:39 Dose: 80 mg Vancomycin HCl (Vancomycin - Pharmacy Dosing 1 Each Miscell) 1 each IV ONCE PRN; Protocol PRN Reason: ZZ.Pharmacy Consult Verapamil HCl (Verapamil Er (Sr) 240 Mg Tablet.Er) 240 mg PO DAILY RYAN Stop: 09/17/24 08:59 Last Admin: 09/18/23 08:39 Dose: 240 mg Vitamin B Complex/Vit C/Folic Acid (Folic Acid/Vit Bcomp,C 1 Tab Tablet) 1 tab PO DAILY RYAN Stop: 09/16/24 08:59 Last Admin: 09/18/23 08:39 Dose: 1 tab A&P - Infectious Disease Assessment/Plan (1) Bacteremia due to Staphylococcus aureus: Code(s): R78.81 - Bacteremia; B95.61 - Methicillin susceptible Staphylococcus aureus infection as the cause of diseases classified elsewhere Status: Acute (2) Aortic valve endocarditis: Code(s): I35.8 - Other nonrheumatic aortic valve disorders Status: Acute (3) Severe sepsis: Code(s): A41.9 - Sepsis, unspecified organism; R65.20 - Severe sepsis without septic shock Status: Acute Plan Patient remains afebrile with stable vital signs. PD culture pending, remains negative. Blood culture growing Staphylococcus aureus and BC from [place] with similar bacteria. Repeat blood cultures with no growth. Echocardiogram revealsmobile aortic density suspicious for vegetation. Continue vancomycin and will continue to follow cultures. Once blood cultures clear at 72 hours can have PICC line placed. Will plan vancomycin for 6 weeks. Documented By: Kathy Fernández DO, RES 09/19/23 0902 Signed By: <Electronically signed by DO JONNY Fernández> 09/19/23 1054 <Electronically signed by MD Ron Ortega> 09/19/[address] [facility] Work Phone: 1(674) 634-345911-28-2023 Consult note Author Bryan Miguel [facility] September 19, 2023 12:30pmNote Date/TimeNovember 2022 12:[address] [address] Hem/Onc Consult Note - IP Signed Patient: Luis Chong III MR#: [id number] : 1955 Acct:[id number] Age/Sex: 68 / M Adm Date: 3 Loc: 3T Room: [address] [place] [address] Type: ADM IN Attending Dr: Adam Judge MD Copies to: MD Bryan Reeves MD, MD~ HPI Consult Date: 09/19/2023 Requesting Provider: Adam Judge MD Reason for Consult: renal mass History of Present Illness: 68 yo with HTN and hyperlipidemia, ESRD on PD and also L RCC post nephrectomy over 20 years ago admitted with fever and AMS and noted to have fevers and has S. Aureus bactremia and also ECHO with a suspicious vegetation. On Abx and ID following and CT on presentation to [place] ER with a 6.6 cm R renal mass. ROS ROS Details: All systems reviewed & no additional complaints except as documented PMF - Medical History Medical History: Medical History (Last Reviewed 09/19/23 @ 12:26 by Bryan Miguel MD) (HFpEF) heart failure with preserved ejection fraction Anemia of renal disease Hutchinson's palsy Cluster headache CVA (cerebral vascular accident) Diverticulitis End-stage renal disease on peritoneal dialysis GERD (gastroesophageal reflux disease) Glaucoma Gout History of kidney cancer Hyperlipidemia Hypertension Kidney failure Peritoneal dialysis catheter in place - Surgical History Surgical History: Surgical History (Last Reviewed 09/19/23 @ 12:26 by Bryan Miguel MD) History of hernia repair History of nephrectomy partial, tumor removed - Family History Family History: Family History (Last Updated 06/10/23 @ 00:13 by Ai Vasquez APRN) Sister COPD (chronic obstructive pulmonary disease) Brain cancer Sister COPD (chronic obstructive pulmonary disease) Mother CHF (congestive heart failure) Diabetes mellitus, type 2 Kidney failure Grandparent Stroke - Social History Smoking Status: Never smoker Substance Use Type: None Allergies & Medications Allergies cephalexin [From Keflex] Adverse Reaction (Verified 08/09/23 11:19) Itching Home Medications [id number]-nldoqlxkultim-wrmmphbp 50 mg-325 mg-40 mg capsule 1 cap PO Q4H PRN Pain 07/14/18 [History Confirmed 09/16/23] omeprazole 20 mg capsule,delayed release 40 mg PO QAM 07/14/18 [History Confirmed 09/16/23] allopurinol 100 mg tablet 100 mg PO QAM 09/27/22 [History Confirmed 08/09/23] atorvastatin 80 mg tablet 80 mg PO QHS 09/27/22 [History Confirmed 09/16/23] brimonidine 0.2 % eye drops 1 drp Eye-Both BID 09/27/22 [History Confirmed 09/16/23] calcitriol 0.5 mcg capsule 0.5 mcg PO QAM 09/27/22 [History Confirmed 08/09/23] dorzolamide 2 % eye drops 1 drp Eye-Both BID 09/27/22 [History Confirmed 09/16/23] furosemide 40 mg tablet 40 mg PO BID 09/27/22 [History Confirmed 09/16/23] gabapentin 300 mg capsule 300 mg PO QHS 09/27/22 [History Confirmed 08/09/23] timolol maleate 0.5 % eye drops 1 drp Eye-Both BID 09/27/22 [History Confirmed 09/16/23] latanoprost 0.005 % eye drops 1 drp Eye-Left HS 08/09/23 [History Confirmed 09/16/23] magnesium oxide 400 mg (241.3 mg magnesium) tablet 400 mg PO DAILY 08/09/23 [History Confirmed 09/16/23] pilocarpine HCl 2 % eye drops 1 drp Eye-Left BID 08/09/23 [History Confirmed 09/16/23] polyethylene glycol 3350 17 gram/dose oral powder 17 g PO DAILY 08/09/23 [History Confirmed 09/16/23] potassium chloride 20 mEq tablet,extended release(part/cryst) (Klor-Con M) 20 meq PO BID 08/09/23 [History Confirmed 09/16/23] sevelamer carbonate 800 mg tablet 800 mg PO TIDWMEAL 08/09/23 [History Confirmed 08/09/23] vitamin B complex-vitamin C 100 mg-folic acid 1 mg tablet (Dialyvite) 1 tab PO DAILY 08/09/23 [History Confirmed 09/16/23] hydralazine 50 mg tablet 50 mg PO BID 09/16/23 [History Confirmed 09/17/23] valsartan 80 mg tablet 80 mg PO DAILY 09/16/23 [History Confirmed 09/16/23] verapamil 240 mg tablet,extended release 240 mg PO DAILY 09/17/23 [History Confirmed 09/17/23] Physical Exam - Physical Exam Vital signs: Temp Pulse Resp BP Pulse Ox O2 Del Method 98.3 F 95 H 16 132/68 95 Room Air 09/19/23 08:00 09/19/23 04:00 09/19/23 08:00 09/19/23 08:00 09/19/23 08:00 09/19/23 08:00 NAD and slight lower extremity edema and alert and oriented Results - Labs Lab Results: 09/19/23 07:37: PHA Creatinine Clear N/A, Sodium 137, Potassium 3.8, Chloride 100, Carbon Dioxide 27.5, Anion Gap 13.3, BUN 46 H, Creatinine 11.01 H D, Est GFR (CKD-EPI) 4.552, Glucose 102 H, Calcium8.3 L 09/19/23 07:37: Corrected WBC 5.9, Uncorrected WBC Count 5.9, RBC 3.89 L, Hgb 11.5 L, Hct 35.3 L, MCV 90.7, MCH 29.7, MCHC 32.7, RDW 17.7 H, Plt Count 131 L, MPV 9.1, Neut % (Auto) 67.5, Lymph % (Auto) 17.4, [place] % (Auto) 12.8, Eos % (Auto) 1.4, Baso % (Auto) 0.9, Nucleat RBC Rel Count 0.2, Neut # (Auto) 4.0, Lymph # (Auto) 1.0, [place] # (Auto) 0.8, Eos # (Auto) 0.1, Baso # (Auto) 0.1 - Diagnostic Imaging CT scan - abdomen Additional comments: Report from [place] reviewed Assessment & Plan (1) Renal mass of unknown nature Reviewed CT report from [place]. Will get an US of the R kidney and non contrasy chest CT. Plan to see in the OP setting once the bactremia and suspicious endocarditis adequately treated, Discussed with the patient and also Daughter Thank you for the consult - Time Spent with Patient Greater than 50% of time spent with patient was for coordination of care (as documented) and [id number] counseling of patient and/or family. Documented By: Bryan Miguel MD 09/19/23 1822 Signed By: <Electronically signed by Bryan Miguel MD> 09/19/[address] [facility] Work Phone: 1([phone]) 753-587511-27-2023 Progress note Author Adam Judge [facility] September 18, 2023 1:39pmNote Date/TimeNovember 2022 12:[place] [address] Hospitalist Progress Note Signed Patient: Luis Chong III MR#: [id number] : 1955 Acct:[id number] Age/Sex: 68 / M Adm Date: 3 Loc: Room: [address] [place] [address] Type: ADM IN Attending Dr: Adam Judge MD Copies to: ~ Date of Service: 09/18/2023 Subjective Subjective Narrative: Attending note: I saw the patient personally on the day of encounter. I reviewed the relevant history, and performed the gregory elements of the physical examination. I reviewedthe relevant laboratory workup, radiological studies and the current treatment plan. I formulated the plan of care and confirmed it with the re sident/student/CITIZENSHIP INSTRUCTOR. Reassessment on a 68-year-old male who was admitted to the hospitalist service for rule out SBP. When I evaluate the patient, he is resting comfortably in bed, his leukocytosis has resolved. He is maintained on vancomycin Zosyn has been discontinued. Peritoneal fluid without changes consistent withinfection. 1 set of our blood cultures on intake was remarkable for Staph aureus, and apparently the culture at outside hospital was also remarkable for Staph aureus. Repeat culture pending. Afebrileand hemodynamically stable x 24 hours. Exam Physical Exam Vital Signs: Temp Pulse Resp BP Pulse Ox O2 Del Method 98.1 F 83 18 132/80 97 Room Air 09/18/23 11:52 09/18/23 11:52 09/18/23 11:52 09/18/23 11:52 09/18/23 11:52 09/18/23 11:52 Narrative: General appearance: No acute distress, alert and oriented x3. Eyes: No conjunctival injection. No nystagmus. HEENT: The external ears and nose appear grossly normal. Cardiovascular: Regular rate and rhythm, no murmurs rubs gallops. Pulses are 2+and symmetric throughout. Neck: trachea is midline Respiratory: Clear to auscultation bilaterally, no wheezes rales or rhonchi. Gastrointestinal: Soft, nontender abdomen. No distention. No rebound, guarding,organomegaly noted. Peritoneal dialysis catheter is in place without surrounding evidence of breakdown Neurological exam: Moves all extremities without difficulty. Alert and oriented x3. No focal neurological deficits. Musculoskeletal: No obvious deformity. No obvious effusion. No obvious lower extremity edema. Objective Lab Results 09/18/23 08:20 09/18/23 08:20 Microbiology Results Microbiology 09/17/23 09:05 Sputum - Expectorated Aerobic Culture - Preliminary Moderate Normal Respiratory Ya 1 Day 09/16/23 18:00 Peritoneal Dialysis Fluid Aerobic Culture - Final 09/16/23 18:00 Peritoneal Dialysis Fluid Anaerobic Culture - Preliminary No Anaerobes Isolated 2 Days 09/16/23 18:00 Peritoneal Dialysis Fluid Gram Stain - Final 09/16/23 13:52 Blood - Right Antecubital Blood Culture - Preliminary Staphylococcus aureus 09/16/23 13:52 Blood - Right Antecubital Bacterial ID (NA Multiplex Assay) -Final Meds Allergies and Active Meds Allergies cephalexin [From Keflex] Adverse Reaction (Verified 08/09/23 11:19) Itching Active Meds: Active Medications Generic Name Dose Route Start Last Admin Trade Name Freq PRN Reason Stop Dose Admin Acetaminophen 1,000 mg 09/16/23 13:13 09/18/23 00:53 Acetaminophen 500 Mg Tablet PO 09/15/24 13:12 1,000 mg Q6H PRN Administration Fever or Pain Atorvastatin Calcium 80 mg 09/16/23 22:00 09/17/23 21:47 Atorvastatin 80 Mg Tablet PO 09/15/24 21:59 80 mg QHS RYAN Administration Brimonidine Tartrate 1 drops 09/16/23 21:00 09/18/23 08:39 Brimonidine 0.2% Op Soln 100 Drops/5 Ml Bottle EYE-BOTH 09/15/24 20:59 1 drops BID RYAN Administration Dorzolamide HCl 1 drops 09/16/23 21:00 09/18/23 08:39 Dorzolamide 2% Op Soln 200 Drops/10 Ml Bottle EYE-BOTH 09/15/24 20:59 1 drops BID RYAN Administration Furosemide 40 mg 09/17/23 21:00 Furosemide 40 Mg Tablet PO 09/16/24 20:59 BID RYAN Gentamicin Sulfate 1 applic 09/16/23 14:00 09/18/23 08:39 Gentamicin 0.1% Cream 15 Gm Tube TOPICAL 09/15/24 13:59 1 applic DAILY RYAN Administration Heparin Sodium (Porcine) 5,000 unit 09/17/23 15:20 09/18/23 06:58 Heparin 5,000 Unit/Ml Vial SUBCUT 09/16/24 15:19 Not Given Q8HR RYAN Hydralazine HCl 50 mg 09/17/23 21:00 09/18/23 08:40 Hydralazine 50 Mg Tablet PO 09/16/24 20:59 50 mg BID RYAN Administration Ketorolac Tromethamine 15 mg 09/16/23 13:35 Ketorolac Tromethamine 15 Mg/Ml Vial IV-PUSH 09/21/23 13:34 Q6H PRN Moderate Pain / Fever Latanoprost 1 drops 09/16/23 22:00 09/17/23 21:46 Latanoprost 0.005% Op Soln 50 Drops/2.5 Ml Bottle EYE-LEFT 09/15/24 21:59 1drops HS RYAN Administration Magnesium Oxide 400 mg 09/17/23 09:00 09/18/23 08:40 Magnesium Oxide 400 Mg Tablet PO 09/16/24 08:59 400 mg DAILY RYAN Administration Nystatin 400,000 unit 09/16/23 14:30 09/18/23 08:40 Nystatin Susp 500,000 Unit/5 Ml Udc PO 09/15/24 14:29 400,000 unit TID RYAN Administration Ondansetron HCl 4 mg 09/17/23 11:29 09/17/23 22:10 Ondansetron 4 Mg/2 Ml Vial IV-PUSH 09/16/24 11:28 4 mg Q4H PRN Administration Nausea And Vomiting Pantoprazole Sodium 40 mg 09/16/23 21:00 09/18/23 08:40 Pantoprazole 40 Mg Tablet.Dr PO 09/15/24 20:59 40 mg BID RYAN Administration Pilocarpine HCl 1 drops 09/16/23 21:00 09/18/23 08:39 Pilocarpine 2% Op Soln 300 Drops/15 Ml Bottle EYE-LEFT 09/15/24 20:59 1 drops BID RYAN Administration Polyethylene Glycol 17 gm 09/17/23 09:00 09/18/23 08:43 Polyethylene Glycol 3350 17 Gm Powd.Pack PO 09/16/24 08:59 Not Given DAILY RYAN Timolol Maleate 1 drops 09/16/23 21:00 09/18/23 08:39 Timolol Mal 0.5% Op Soln 100 Drops/5 Ml Bottle EYE-BOTH 09/15/24 20:59 1 drops BID RYAN Administration Valsartan 80 mg 09/18/23 09:00 09/18/23 08:39 Valsartan 80 Mg Tablet PO 09/17/24 08:59 80 mg DAILY RYAN Administration Vancomycin HCl 1 each 09/16/23 12:55 Vancomycin - Pharmacy Dosing 1 Each Miscell IV ONCE PRN ZZ.Pharmacy Consult Protocol Verapamil HCl 240 mg 09/18/23 09:00 09/18/23 08:39 Verapamil Er (Sr) 240 Mg Tablet.Er PO 09/17/24 08:59 240 mg DAILY RYAN Administration Vitamin B Complex/Vit C/Folic Acid 1 tab 09/17/23 09:00 09/18/23 08:39 Folic Acid/Vit Bcomp,C 1 Tab Tablet PO 09/16/24 08:59 1 tab DAILY RYAN Administration A&P - Hospitalist Assessment/Plan (1) Bacteremia due to Staphylococcus aureus: (2) End-stage renal disease on peritoneal dialysis: (3) (HFpEF) heart failure with preserved ejection fraction: (4) Anemia of renal disease: Plan Impression: This is a 68-year-old male with past medical history of CKD and ESRD on peritoneal dialysis, hypertension, hyperlipidemia who is being monitored on the floor for rule out SBP. Thus far, he only had atransient leukocytosis and fever of 102.5 Fahrenheit. Since then, his leukocytosis has resolved, has remained afebrile and hemodynamically stable. Antibiotics narrowed from Vanco Zosyn to bank, ID afsaneh board. Plan: 1) Staph aureus bacteremia: Antibiotics narrowed to vancomycin monotherapy. Infectious disease on board, waiting for the results before length of stay is determined. Clinical presentation and vital signs are reassuring. Continue to monitor, serial CBCs to evaluate for any new leukocytosis. Please notify if there are any new fevers, persistent tachycardia, or persistent hypotension. 2) ESRD on peritoneal dialysis: Nephrology on board, managing dialysis coordination. Thank dosing per pharmacy. 3) HFrEF: Initial concern for fluid overload state, holding off on IV fluid administration. Echocardiogram is ordered and pending. Lung sounds clear on myexamination today. #4 renal mass. History of renal cell carcinoma status post left partial nephrectomy 1999.Will obtain the full history of this and send him back to his team who treated him at that time unless the patient prefers otherwise. 1 (chronic medical conditions: Continue home medications as reconciled DVT prophylaxis: Heparin Diet: Renal CODE STATUS: Full code Documented By: Mehran Lynch DO, RES 3 1218 Signed By: <Electronically signed by RES Mehran Lynch> 09/18/23 1228 <Electronically signed by Adam Judge MD> 09/18/23 [facility] Work Phone: 1(560) 591-703011-27-2023 Progress note Author Reece [facility]oo[facility] September 18, 2023 1:09pmNote Date/TimeNov2022 1:09[place] [address] Nephrology Progress Note Signed Patient: Luis Chong III MR#: [id number] : 1955 Acct:[id number] Age/Sex: 68 / M Adm Date: 3 Loc: Room: 5Q9272-9 Type: ADM IN Attending Dr: Adam Judge MD Copies to: ~ Date of Service: 09/18/2023 Subjective Subjective Narrative: Mr. Chong is a 68-year-old -Nepalese male with history of ESRD who was just started PD underthe care of Dr. Winchester in [facility]. Patient has renalcell carcinoma s/p partial left nephrectomy in 1999. Patient was just recently started PD on June 2023 and he uses a cycler at home with help of his . Patient presented to ER minister assistant on 09/16 with altered mental status and abdominal pain. Evaluation in ER showed fever [address] scan of the abdomen and pelvis was obtained that showed 6.6 cm mass arising from the left lower pole of the right kidney suggestive of malignancy. CT scan was done without contrast. PD catheter was in place with no other significant intra-a bdominal abnormalities. Patient was loaded empirically with IV vancomycin 2 g and piperacillin/tazobactam. Unfortunately no PD fluid was obtained for Gram stain or culture since [facility] has distribution engineering technologist with PD procedures. Subsequently, the patient was transferred to [facility] for management. Patient was recently admitted at [facility] on July 2023 with slurredspeech and right facial droop and he was evaluated by neurology for possible CVA. 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 Interval history: Patient was seen and examined in his room. Denied any complaint. PD fluid culture remains negative.Patient continues to be on Zosyn and vancomycin Continues to be on room air Exam Physical Exam Vital Signs: Temp Pulse Resp BP Pulse Ox O2 Del Method 98.1 F 83 18 132/80 97 Room Air 09/18/23 11:52 09/18/23 11:52 09/18/23 11:52 09/18/23 11:52 09/18/23 11:52 09/18/23 11:52 Narrative: General: No acute distress Head :atraumatic normocephalic Eyes: PERRLA. Neck: no JVD no bruit. Heart: S1-S2. RRR Respiratory: Clear to auscultation. No wheezing. No crackles Abdomen: Soft, positive bowel sounds,no tenderness. PD catheter in place Neurology: Awake alert oriented x3. No focal deficits Extremity. No cyanosis. No edema Skin: No skin rash Objective Intake and Output I&O: Intake & Output 09/15/23 09/16/23 09/17/23 09/18/23 23:59 23:59 23:59 23:59 Intake Total 4710 / 4710 01571 / 26772 6950 / 6950 Output Total 4525 / 4525 8700 / 8700 4700 / 4700 Balance 185 / 185 1350 / 1350 2250 / 2250 Weight 132.3 kg 130.5 kg 122.8 kg Meds and Allergies Meds: Active Medications Acetaminophen (Acetaminophen 500 Mg Tablet) 1,000 mg PO Q6H PRN PRN Reason: Fever or Pain Stop: 09/15/24 13:12 Last Admin: 09/18/23 00:53 Dose: 1,000 mg Atorvastatin Calcium (Atorvastatin 80 Mg Tablet) 80 mg PO QHS RYAN Stop: 09/15/24 21:59 Last Admin: 09/17/23 21:47 Dose: 80 mg Brimonidine Tartrate (Brimonidine 0.2% Op Soln 100 Drops/5 Ml Bottle) 1 drops EYE-BOTH BID RYAN Stop: 09/15/24 20:59 Last Admin: 09/18/23 08:39 Dose: 1 drops Dorzolamide HCl (Dorzolamide 2% Op Soln 200 Drops/10 Ml Bottle) 1 drops EYE-BOTH BID RYAN Stop: 09/15/24 20:59 Last Admin: 09/18/23 08:39 Dose: 1 drops Furosemide (Furosemide 40 Mg Tablet) 40 mg PO BID RYAN Stop: 09/16/24 20:59 Gentamicin Sulfate (Gentamicin 0.1% Cream 15 Gm Tube) 1 applic TOPICAL DAILY RYAN Stop: 09/15/24 13:59 Last Admin: 09/18/23 08:39 Dose: 1 applic Heparin Sodium (Porcine) (Heparin 5,000 Unit/Ml Vial) 5,000 unit SUBCUT Q8HR RYAN Stop: 09/16/24 15:19 Last Admin: 09/18/23 06:58 Dose: Not Given Hydralazine HCl (Hydralazine 50 Mg Tablet) 50 mg PO BID RYAN Stop: 09/16/24 20:59 Last Admin: 09/18/23 08:40 Dose: 50 mg Ketorolac Tromethamine (Ketorolac Tromethamine 15 Mg/Ml Vial) 15 mg IV-PUSH Q6HPRN PRN Reason: Moderate Pain / Fever Stop: 09/21/23 13:34 Latanoprost (Latanoprost 0.005% Op Soln 50 Drops/2.5 Ml Bottle) 1 drops EYE-LEFT HS RYAN Stop: 09/15/24 21:59 Last Admin: 11/26/23 21:46 Dose: 1 drops Magnesium Oxide (Magnesium Oxide 400 Mg Tablet) 400 mg PO DAILY [facility] Stop: 09/16/24 08:59 Last Admin: 09/18/23 08:40 Dose: 400 mg Nystatin (Nystatin Susp 500,000 Unit/5 Ml Udc) 400,000 unit PO TID RYAN Stop: 09/15/24 14:29 Last Admin: 09/18/23 08:40 Dose: 400,000 unit Ondansetron HCl (Ondansetron 4 Mg/2 Ml Vial) 4 mg IV-PUSH Q4H PRN PRN Reason: Nausea And Vomiting Stop: 09/16/24 11:28 Last Admin: 09/17/23 22:10 Dose: 4 mg Pantoprazole Sodium (Pantoprazole 40 Mg Tablet.Dr) 40 mg PO BID RYAN Stop: 09/15/24 20:59 Last Admin: 09/18/23 08:40 Dose: 40 mg Pilocarpine HCl (Pilocarpine 2% Op Soln 300 Drops/15 Ml Bottle) 1 drops EYE-LEFT BID RYAN Stop: 09/15/24 20:59 Last Admin: 09/18/23 08:39 Dose: 1 drops Polyethylene Glycol (Polyethylene Glycol 3350 17 Gm Powd.Pack) 17 gm PO DAILY RYAN Stop: 09/16/24 08:59 Last Admin: 09/18/23 08:43 Dose: Not Given Timolol Maleate (Timolol Mal 0.5% Op Soln 100 Drops/5 Ml Bottle) 1 drops EYE- BOTH BID RYAN Stop: 09/15/24 20:59 Last Admin: 09/18/23 08:39 Dose: 1 drops Valsartan (Valsartan 80 Mg Tablet) 80 mg PO DAILY RYAN Stop: 09/17/24 08:59 Last Admin: 09/18/23 08:39 Dose: 80 mg Vancomycin HCl (Vancomycin - Pharmacy Dosing 1 Each Miscell) 1 each IV ONCE PRN; Protocol PRN Reason: ZZ.Pharmacy Consult Verapamil HCl (Verapamil Er (Sr) 240 Mg Tablet.Er) 240 mg PO DAILY [facility] Stop: 09/17/24 08:59 Last Admin: 09/18/23 08:39 Dose: 240 mg Vitamin B Complex/Vit C/Folic Acid (Folic Acid/Vit Bcomp,C 1 Tab Tablet) 1 tab PO DAILY RYAN Stop: 11/25/24 08:59 Last Admin: 09/18/23 08:39 Dose: 1 tab Allergies cephalexin [From Keflex] Adverse Reaction (Verified 08/09/23 11:19) Itching Results Labs 09/18/23 08:20 09/18/23 08:20 Labs: 09/18/23 08:20 BUN 52 H Creatinine 11.72 H Radiology Impressions Impressions - last 24 hours: Any impression(s) listed above is documentation that was entered by the reading physician into a diagnostic report(s) for Luis Chong III. I have reviewed the report(s) and am incorporating any findings in the treatment plan of this patient where applicable. A&P - Nephrology Assessment/Plan (1) End-stage renal disease on peritoneal dialysis: Assessment/Problem Details: Patient was recently started on peritoneal dialysis for progressive CKD s/p partial left nephrectomy for renal cell cancer and currently with proteinuria. He normally follow-up with Dr. Winchester in [place] and he was started on Jean dialysis on June 2023 (2) Fever: Assessment/Problem Details: Patient presents with fever and abdominal pain however PD fluid cell count showed WBCs count 67 with neutrophils 25% ruling out possibility of peritonitis. (3) Abdominal pain: Assessment/Problem Details: Patient presented with abdominal pain that has resolved on antibiotics. PD fluid analysis was not suggestive of peritonitis. (4) Hypertensive chronic kidney disease with stage 5 chronic kidney disease or end stage renal disease: Assessment/Problem Details: Blood pressure is well-controlled on multiple blood pressure medications. (5) Renal mass of unknown nature: Assessment/Problem Details: CT scan of the abdomen from [place] ER was reviewed and the patient had 6.6 cm mass arising from the lower pole of the right kidney suggestive of possible neoplasm. These need to be addressed as a outpatient after improvement of current infection. Plan * Will continue doing CAPD while inpatient with 1 exchange every 4 hours with filling volume of 2 L. Will continue using 2.5 dextrose solution * PD fluid culture is negative. Patient does not have peritonitis. * Remains on widespread antibiotics. Will defer to ID about downgrading antibiotics. Pharmacy to dose antibiotics for PD patient * Continue gentamicin cream 1% at exit site daily * Continue nystatin 400,000 units every 8 hours orally for fungal prophylaxis since he is on antibiotics. * Monitor daily intake and output and renal panel to adjust dialysis prescriptions and medications as indicated. Documented By: Reece Rodriguez MD 09/18/23 1307 Signed By: <Electronically signed by Reece Rodriguez MD> 09/18/[address] [facility] Work Phone: 1(345) 556-671311-27-2023 Consult note Author Ron Ortega [facility] September 18, 2023 10:35amNote Date/TimeNovember 2022 8:31[place] [address] Infect. Disease Consult Note Signed Patient: Luis Chong III MR#: [id number] : 1955 Acct:[id number] Age/Sex: 68 / M Adm Date: 3 Loc: Room: [address] [place] [address] Type: ADM IN Attending Dr: Adam Judge MD Copies to: MD Angel Luis Reeves MD Michael S Blank, MD Samantha Mason, DO, RES~ HPI Data of Consult Consult date: 09/18/23 Requesting Physician: Ron Cardenas DO Primary Care Provider: Angel Luis Sanches MD Consult Narrative History of present illness: Mr. Chong is a 68 year old male admitted for altered mental status and abdominalpain. Patient was transferred to [facility] from [facility]. Past medical history significant for ESRD on peritoneal dialysis, history of renal cell carcinoma, and diastolic congestive heart failure. Patient was taken to the emergency room by his family due to worseningconfusion. At the [place] emergency room, patient was persistently tachycardic and febrile. He received broad-spectrum coverage with vancomycin and Zosyn and was fluid resuscitated at the outside facility. Upon his arrival to our facility, patient was tachycardic at 118 and febrile at 102.5. Patient was recently admitted and treated last month for Hutchinson's palsy and received 7 days ofhigh-dose steroids. CT of the abdomen and pelvis revealed a 6.6 cm right kidneymass and abdominal fluid but no other acute findings. White blood cell count was 7.9. Blood cultures were drawn and patient was admitted for further evaluation. He was continued on vancomycin and Zosyn for broad-spectrum coverage. Blood culture growing Staphylococcus aureus, appears second BC was not run. At [place], patient also had a blood culturepositive for Staphylococcus. During my encounter, patient denies any complaints or concerns. Patient is alert and oriented. CC: Ron Cardenas, DO Review of Systems Review of Systems All other systems reviewed & are negative unless noted below or in HPI [facility] Medical History (Updated 09/17/23 @ 17:08 by Louann Melgar APRN) (HFpEF) heart failure with preserved ejection fraction Anemia of renal disease Hutchinson's palsy Cluster headache CVA (cerebral vascular accident) Diverticulitis End-stage renal disease on peritoneal dialysis GERD (gastroesophageal reflux disease) Glaucoma Gout History of kidney cancer Hyperlipidemia Hypertension Kidney failure Peritoneal dialysis catheter in place Surgical History (Updated 09/17/23 @ 09:35 by Louann Melgar APRN) History of hernia repair History of nephrectomy partial, tumor removed Family History (Updated 06/10/23 @ 00:13 by Ai Vasquez APRN) Sister COPD (chronic obstructive pulmonary disease) Brain cancer Sister COPD (chronic obstructive pulmonary disease) Mother CHF (congestive heart failure) Diabetes mellitus, type 2 Kidney failure Grandparent Stroke Social History Smoking Status: Never smoker Substance Use Type: None Allergies and Medications Allergies and Active Meds Allergies cephalexin [From Keflex] Adverse Reaction (Verified 08/09/23 11:19) Itching Active Medications Acetaminophen (Acetaminophen 500 Mg Tablet) 1,000 mg PO Q6H PRN PRN Reason: Fever or Pain Stop: 09/15/24 13:12 Last Admin: 09/18/23 00:53 Dose: 1,000 mg Atorvastatin Calcium (Atorvastatin 80 Mg Tablet) 80 mg PO QHS RYAN Stop: 09/15/24 21:59 Last Admin: 09/17/23 21:47 Dose: 80 mg Brimonidine Tartrate (Brimonidine 0.2% Op Soln 100 Drops/5 Ml Bottle) 1 drops EYE-BOTH BID RYAN Stop: 09/15/24 20:59 Last Admin: 09/17/23 21:47 Dose: 1 drops Dorzolamide HCl (Dorzolamide 2% Op Soln 200 Drops/10 Ml Bottle) 1 drops EYE-BOTH BID RYAN Stop: 09/15/24 20:59 Last Admin: 09/17/23 21:46 Dose: 1 drops Furosemide (Furosemide 40 Mg Tablet) 40 mg PO BID RYAN Stop: 09/16/24 20:59 Gentamicin Sulfate (Gentamicin 0.1% Cream 15 Gm Tube) 1 applic TOPICAL DAILY [facility] Stop: 09/15/24 13:59 Last Admin: 09/17/23 08:56 Dose: 1 applic Heparin Sodium (Porcine) (Heparin 5,000 Unit/Ml Vial) 5,000 unit SUBCUT Q8HR [facility] Stop: 09/16/24 15:19 Last Admin: 09/18/23 06:58 Dose: Not Given Hydralazine HCl (Hydralazine 50 Mg Tablet) 50 mg PO BID RYAN Stop: 09/16/24 20:59 Last Admin: 09/17/23 21:47 Dose: 50 mg Piperacillin Sod/Tazobactam Sod (Zosyn 2.25gm) 2.25 gm in 100 mls @ 200 mls/hr IV Q8H [facility] Last Infusion: 09/18/23 03:28 Dose: Infused Ketorolac Tromethamine (Ketorolac Tromethamine 15 Mg/Ml Vial) 15 mg IV-PUSH Q6HPRN PRN Reason: Moderate Pain / Fever Stop: 09/21/23 13:34 Latanoprost (Latanoprost 0.005% Op Soln 50 Drops/2.5 Ml Bottle) 1 drops EYE-LEFT HS [facility] Stop: 09/15/24 21:59 Last Admin: 09/17/23 21:46 Dose: 1 drops Magnesium Oxide (Magnesium Oxide 400 Mg Tablet) 400 mg PO DAILY [facility] Stop: 09/16/24 08:59 Last Admin: 09/17/23 08:56 Dose: 400 mg Nystatin (Nystatin Susp 500,000 Unit/5 Ml Udc) 400,000 unit PO TID [facility] Stop: 09/15/24 14:29 Last Admin: 09/17/23 21:48 Dose: 400,000 unit Ondansetron HCl (Ondansetron 4 Mg/2 Ml Vial) 4 mg IV-PUSH Q4H PRN PRN Reason: Nausea And Vomiting Stop: 09/16/24 11:28 Last Admin: 09/17/23 22:10 Dose: 4 mg Pantoprazole Sodium (Pantoprazole 40 Mg Tablet.Dr) 40 mg PO BID [facility] Stop: 09/15/24 20:59 Last Admin: 09/17/23 21:47 Dose: 40 mg Pilocarpine HCl (Pilocarpine 2% Op Soln 300 Drops/15 Ml Bottle) 1 drops EYE-LEFT BID RYAN Stop: 09/15/24 20:59 Last Admin: 09/17/23 21:47 Dose: 1 drops Polyethylene Glycol (Polyethylene Glycol 3350 17 Gm Powd.Pack) 17 gm PO DAILY RYAN Stop: 09/16/24 08:59 Last Admin: 09/17/23 08:57 Dose: Not Given Timolol Maleate (Timolol Mal 0.5% Op Soln 100 Drops/5 Ml Bottle) 1 drops EYE- BOTH BID RYAN Stop: 09/15/24 20:59 Last Admin: 09/17/23 21:47 Dose: 1 drops Valsartan (Valsartan 80 Mg Tablet) 80 mg PO DAILY RYAN Stop: 09/17/24 08:59 Vancomycin HCl (Vancomycin - Pharmacy Dosing 1 Each Miscell) 1 each IV ONCE PRN; Protocol PRN Reason: ZZ.Pharmacy Consult Verapamil HCl (Verapamil Er (Sr) 240 Mg Tablet.Er) 240 mg PO DAILY RYAN Stop: 09/17/24 08:59 Vitamin B Complex/Vit C/Folic Acid (Folic Acid/Vit Bcomp,C 1 Tab Tablet) 1 tab PO DAILY RYAN Stop: 09/16/24 08:59 Last Admin: 09/17/23 08:56 Dose: 1 tab Exam Physical Exam Vital Signs: Temp Pulse Resp BP Pulse Ox O2 Del Method 97.4 F L 79 18 149/70 H 97 Room Air 09/18/23 07:33 09/18/23 07:33 09/18/23 07:33 09/18/23 07:33 09/18/23 07:33 09/18/23 07:33 Narrative: General: No acute distress. Resting comfortably in bed. HEENT: Atraumatic, normocephalic. No scleral icterus. CV: Regular rate and rhythm. No murmurs, rubs, or gallops Respiratory: Clear to auscultation bilaterally. No wheezes, rhonchi, rales Abdominal: Soft,distended, nontender normoactive bowel sounds. Peritoneal dialysis catheter withoutsigns of infection, no drainage or redness Extremities: No swelling, cyanosis, clubbing. No calf tenderness Neuro: No focal neurologic deficit. Alert, oriented to person place Psych: appropriate mood and affect, speech is clear Results Labs 09/17/23 06:16 09/17/23 06:16 Labs: 09/17/23 06:16: Corrected WBC 5.7, Uncorrected WBC Count 5.7 Microbiology Results Microbiology Narrative: 09/16/23 13:52 Blood - Right Antecubital Blood Culture - Preliminary Staphylococcus aureus 09/16/23 13:52 Blood - Right Antecubital Bacterial ID (NA Multiplex Assay) -Final 09/16/23 18:00 Peritoneal Dialysis Fluid Aerobic Culture - Preliminary 09/16/23 18:00 Peritoneal Dialysis Fluid Anaerobic Culture - Preliminary No Anaerobes Isolated 1 Day 09/16/23 18:00 Peritoneal Dialysis Fluid Gram Stain - Final A&P - Infectious Disease (1) Bacteremia due to Staphylococcus aureus: Status: Acute (2) Severe sepsis: Status: Acute Plan Patient admitted with altered mental status, abdominal pain, and severe sepsis. History of ESRD on peritoneal dialysis. Patient currently on broad-spectrum coverage with vancomycin and Zosyn. Patientremains afebrile overnight and is alert and oriented. CT of the abdomen showed 6.6 cm right kidney mass history of RCC but no other acute findings. White blood count trended down from 10.6 to5.7. Echo and sputum culture pending. Peritoneal fluid culture negative for growth x1 day and catheter without signs of infection. PD fluid cell count without indices suggestive of infection. Blood culture x 1 growing Staphylococcus aureus. Blood culture from [place] with similar bacteria. Patient allergic to Keflex as it causes itching. Therefore we will discontinue Zosyn and maintain vancomycin. Continue to follow cultures and echo. Will determine length of treatment when this information is back Documented By: Kathy Fernández DO, RES 09/18/23 0830 Signed By: <Electronically signed by DO JONNY Fernández> 09/18/23 1004 <Electronically signed by MD Ron Ortega> 09/18/[address] [facility] Work Phone: 1(154) 282-571311-26-2023 Progress note Author Louann Melgar [facility] September 17, 2023 5:11pmNote Date/TimeNovember 2022 11:29[place] [address] Hospitalist Progress Note Signed with Juliocesar Patient: Luis Chong III MR#: [id number] : 1955 Acct:[id number] Age/Sex: 68 / M Adm Date: 3 Loc: 3T Room: [address] [place] [address] Type: ADM INOo Attending Dr: Ron Cardenas DO Copies to: ~ ADDENDUM1 [facility], blood culture biofire positive for staph aureus. 2 cultures were ordered but only 1 appears in process. Query to [place] blood culture 1 of 2 positive for staph, but that 2nd culture was not run due to some sort of problem with it and was unable to run. Waiting for information to be faxed. Staph Aureas bacteremia -continue Vanco/ Zosyn and follow all cultures -check echo -ID consultation -repeat blood cultures X2 in AM Addendum Documented By: KARYNA Melgar 09/17/231710 Addendum Signed By: <Electronically signed by KARYNA Melgar> 09/17/231710 Date of Service: 09/17/2023 Subjective Subjective Narrative: Patient seen and examined. Reports abdominal pain improved from yesterday, did have nausea last evening. Ate breakfast this AM and awaiting lunch. Aware he is in hospital, oriented x 2/3. Follows commands for exams. Exam Physical Exam Vital Signs: Temp Pulse Resp BP Pulse Ox O2 Del Method 97.7 F 78 18 134/76 99 Room Air 09/17/23 11:21 09/17/23 11:21 09/17/23 11:21 09/17/23 11:21 09/17/23 11:21 09/17/23 11:21 Narrative: CONST- alert, in bed, no distress at rest CARD- RRR no abnormal heart tones PULM- dimin without wheeze or rhonchi, RA ABD- S/NT, NABS, obese, peritoneal catheter without redness/ drainage EXTREM- trace edema BLE, calves nontender NEURO- mild right facial droop and lid lag with recent hutchinson's palsy Objective Lab Results 09/17/23 06:16 09/17/23 06:16 Microbiology Results Microbiology 09/16/23 18:00 Peritoneal Dialysis Fluid Aerobic Culture - Preliminary 09/16/23 18:00 Peritoneal Dialysis Fluid Anaerobic Culture - Preliminary No Anaerobes Isolated 1 Day 09/16/23 18:00 Peritoneal Dialysis Fluid Gram Stain - Final Meds Allergies and Active Meds Allergies cephalexin [From [facility]] Adverse Reaction (Verified 08/09/23 11:19) Itching Active Meds: Active Medications Generic Name Dose Route Start Last Admin Trade Name Eb PRN Reason Stop Dose Admin Acetaminophen 1,000 mg 09/16/23 13:13 09/16/23 13:42 Acetaminophen 500 Mg Tablet PO 09/15/24 13:12 1,000 mg Q6H PRN Administration Fever or Pain Atorvastatin Calcium 80 mg 09/16/23 22:00 09/16/23 21:27 Atorvastatin 80 Mg Tablet PO 09/15/24 21:59 80 mg QHS RYAN Administration Brimonidine Tartrate 1 drops 09/16/23 21:00 09/17/23 08:56 Brimonidine 0.2% Op Soln 100 Drops/5 Ml Bottle EYE-BOTH 09/15/24 20:59 1 drops BID RYAN Administration Dorzolamide HCl 1 drops 09/16/23 21:00 09/17/23 08:56 Dorzolamide 2% Op Soln 200 Drops/10 Ml Bottle EYE-BOTH 09/15/24 20:59 1 drops BID RYAN Administration Gentamicin Sulfate 1 applic 09/16/23 14:00 09/17/23 08:56 Gentamicin 0.1% Cream 15 Gm Tube TOPICAL 09/15/24 13:59 1 applic DAILY RYAN Administration Piperacillin Sod/Tazobactam Sod 2.25 gm in 100 mls @ 200 mls/hr 09/16/23 16:00 09/17/23 09:01 Zosyn 2.25gm IV 2,000 mls/hr Q8H RYAN Administration Ketorolac Tromethamine 15 mg 09/16/23 13:35 Ketorolac Tromethamine 15 Mg/Ml Vial IV-PUSH 09/21/23 13:34 Q6H PRN Moderate Pain / Fever Latanoprost 1 drops 09/16/23 22:00 09/16/23 21:54 Latanoprost 0.005% Op Soln 50 Drops/2.5 Ml Bottle EYE-LEFT 09/15/24 21:59 1drops HS RYAN Administration Magnesium Oxide 400 mg 09/17/23 09:00 09/17/23 08:56 Magnesium Oxide 400 Mg Tablet PO 09/16/24 08:59 400 mg DAILY RYAN Administration Nystatin 400,000 unit 09/16/23 14:30 09/17/23 08:56 Nystatin Susp 500,000 Unit/5 Ml Udc PO 09/15/24 14:29 400,000 unit TID RYAN Administration Pantoprazole Sodium 40 mg 09/16/23 21:00 09/17/23 08:56 Pantoprazole 40 Mg Tablet. PO 09/15/24 20:59 40 mg BID RYAN Administration Pilocarpine HCl 1 drops 09/16/23 21:00 09/17/23 08:57 Pilocarpine 2% Op Soln 300 Drops/15 Ml Bottle EYE-LEFT 09/15/24 20:59 1 drops BID RYAN Administration Polyethylene Glycol 17 gm 09/17/23 09:00 09/17/23 08:57 Polyethylene Glycol 3350 17 Gm Powd.Pack PO 09/16/24 08:59 Not Given DAILY RYAN Timolol Maleate 1 drops 09/16/23 21:00 09/17/23 08:57 Timolol Mal 0.5% Op Soln 100 Drops/5 Ml Bottle EYE-BOTH 09/15/24 20:59 1 drops BID RYAN Administration Vancomycin HCl 1 each 09/16/23 12:55 Vancomycin - Pharmacy Dosing 1 Each Miscell IV ONCE PRN ZZ.Pharmacy Consult Protocol Vitamin B Complex/Vit C/Folic Acid 1 tab 09/17/23 09:00 09/17/23 08:56 Folic Acid/Vit Bcomp,C 1 Tab Tablet PO 09/16/24 08:59 1 tab DAILY RYAN Administration A&P - Hospitalist Assessment/Plan (1) Severe sepsis: (2) Abdominal pain: (3) Peritoneal dialysis catheter in place: (4) End-stage renal disease on peritoneal dialysis: (5) Anemia of renal disease: (6) Renal mass of unknown nature: (7) Hypertension: Plan Severe sepsis, etiology unclear Abdominal pain, fever- resolved Possible peritonitis Febrile encephalopathy, resolved -Vancomycin and Zosyn, fluid resuscitated at [place] ED -peritoneal culture pending (taken after IV antibiotic administered) though analysis not suggestiveof peritonitis -sputum pending -blood culture pending -UA noninfectious, CXR nonacute, respiratory triple PCR negative. -CT abd/pelvis from [place] ED- 6.6cm right kidney mass otherwise nonacute ESRD on peritoneal dialysis hx Renal cell carcinoma s/p partial left nephrectomy 1999 Anemia of CKD -nephrology following for further management of PD -CT abd/pelvis from [place] ED- 6.6cm right kidney mass otherwise nonacute -will need outpatient evaluation of abnormal CT suggestive of possible neoplasm right kidney Chronic Conditions 1. HTN, HFpEF, HLD- atorvastatin, resumed Hydralazine and Verapamil, home Furosemide and valsartan remain on hold, trend BPs 2. Glaucoma- Brimonidine, Dorzolamide, Latanoprost, Pilocarpine, Timolol DISCHARGE planning- therapy evals pending Documented By: Louann Melgar APRN 08/24 04/14 1129 Signed By: <Electronically signed by KARYNA Melgar> 09/17/23 1221 <Electronically signed by Ron Cardenas DO> 09/17/23 [facility] Work Phone: 1(102) 457-464511-26-2023 Progress note Author [facility] September 17, 2023 11:39amNote Date/TimeNov2022 11:39[place], [place] [address] Nephrology Progress Note Signed Patient: Luis Chong III MR#: [id number] : 1955 Acct:[id number] Age/Sex: 68 / M Adm Date: 3 Loc: Room: [address] [place] [address] Type: ADM INOo Attending Dr: Ron Cardenas DO Copies to: ~ Date of Service: 09/17/2023 Subjective Subjective Narrative: Mr. Chong is a 68-year-old -Nepalese male with history of ESRD who was just started PD underthe care of Dr. Winchester in [facility]. Patient has renalcell carcinoma s/p partial left nephrectomy in 1999. Patient was just recently started PD on June 2023 and he uses a cycler at home with help of his . Patient presented to ER [facility] on 09/16 with altered mental status and abdominal pain. Evaluation in ER showed fever [address] scan of the abdomen and pelvis was obtained that showed 6.6 cm mass arising from the left lower pole of the right kidney suggestive of malignancy. CT scan was done without contrast. PD catheter was in place with no other significant intra-a bdominal abnormalities. Patient was loaded empirically with IV vancomycin 2 g and piperacillin/tazobactam. Unfortunately no PD fluid was obtained for Gram stain or culture since [facility] has distribution engineering technologist with PD procedures. Subsequently, the patient was transferred to [facility] for management. Patient was recently admitted at [facility] on July 2023 with slurredspeech and right facial droop and he was evaluated by neurology for possible CVA. 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 Interval history: Patient was admitted with abdominal pain and fever. PD catheter exit site was clean. PD fluid was sent yesterday for WBCs count, Gram stain and culture. He has only 67 WBCs per microliter with 25% neutrophils. Sample was obtained few hours after starting antibiotics so possibility of peritonitis isless likely and his fever and chills possibly related to other etiology. Today the patient feels comfortable. Has no more fever. Pulse ox 99% on room air. He denies any abdominal pain whatsoever. He is able to eat and drink. Blood pressure stable 134/76. Sputum culture, PD fluid culture, urine and blood cultures are still pending. Patient on IV vancomycin and piperacillin/tazobactam. Will BCs count yesterday was mildly elevated 10.6 today down to 5.7. Hemoglobinslightly down to 10.6 with no evidence of bleeding. Lactic acid mildly elevated2 mmol/L. Mild elevated ALT and AST. Vancomycin trough today 14.5 mcg/mL. Pharmacy will dose the vancomycin Exam Physical Exam Vital Signs: Temp Pulse Resp BP Pulse Ox O2 Del Method 36.5 C 78 18 134/76 99 Room Air 09/17/23 11:21 09/17/23 11:21 09/17/23 11:21 09/17/23 11:21 09/17/23 11:21 09/17/23 11:21 Narrative: Constitutional: Morbidly obese, looks ill and febrile. No respiratory distress HEENT: Atraumatic, normal cephalic. No pallor or jaundice Cardiovascular: RRR, normal S1-S2, no gallop or rub, No JVD Respiratory: Good bilateral air entry no wheezing or crackles Gastrointestinal: Soft, non tender, positive bowel sounds. No palpable organs. He has PD catheter with clean exit site covered with clean dressing. No discharge or signs of exit site infection. Extremities: 1+ edema Skin: No rashes or bruises Neurology: Awake however he seems to be mildly confused. He has a right facial droop. He is able toanswer simple questions however he is slow to answer. Psych: Flat affect Objective Intake and Output I&O: Intake & Output 09/14/23 09/15/23 09/16/23 09/17/23 23:59 23:59 23:59 23:59 Intake Total 4710 / 4710 5000 / 5000 Output Total 4525 / 4525 4000 / 4000 Balance 185 / 185 1000 / 1000 Weight 132.3 kg 130.5 kg Meds and Allergies Meds: Active Medications Acetaminophen (Acetaminophen 500 Mg Tablet) 1,000 mg PO Q6H PRN PRN Reason: Fever or Pain Stop: 09/15/24 13:12 Last Admin: 09/16/23 13:42 Dose: 1,000 mg Atorvastatin Calcium (Atorvastatin 80 Mg Tablet) 80 mg PO QHS RYAN Stop: 09/15/24 21:59 Last Admin: 09/16/23 21:27 Dose: 80 mg Brimonidine Tartrate (Brimonidine 0.2% Op Soln 100 Drops/5 Ml Bottle) 1 drops EYE-BOTH BID RYAN Stop: 09/15/24 20:59 Last Admin: 09/17/23 08:56 Dose: 1 drops Dorzolamide HCl (Dorzolamide 2% Op Soln 200 Drops/10 Ml Bottle) 1 drops EYE-BOTH BID RYAN Stop: 09/15/24 20:59 Last Admin: 09/17/23 08:56 Dose: 1 drops Gentamicin Sulfate (Gentamicin 0.1% Cream 15 Gm Tube) 1 applic TOPICAL DAILY RYAN Stop: 09/15/24 13:59 Last Admin: 09/17/23 08:56 Dose: 1 applic Piperacillin Sod/Tazobactam Sod (Zosyn 2.25gm) 2.25 gm in 100 mls @ 200 mls/hr IV Q8H RYAN Last Admin: 09/17/23 09:01 Dose: 2,000 mls/hr Ketorolac Tromethamine (Ketorolac Tromethamine 15 Mg/Ml Vial) 15 mg IV-PUSH Q6HPRN PRN Reason: Moderate Pain / Fever Stop: 09/21/23 13:34 Latanoprost (Latanoprost 0.005% Op Soln 50 Drops/2.5 Ml Bottle) 1 drops EYE-LEFT HS RYAN Stop: 09/15/24 21:59 Last Admin: 09/16/23 21:54 Dose: 1 drops Magnesium Oxide (Magnesium Oxide 400 Mg Tablet) 400 mg PO DAILY RYAN Stop: 09/16/24 08:59 Last Admin: 09/17/23 08:56 Dose: 400 mg Nystatin (Nystatin Susp 500,000 Unit/5 Ml Udc) 400,000 unit PO TID RYAN Stop: 09/15/24 14:29 Last Admin: 09/17/23 08:56 Dose: 400,000 unit Ondansetron HCl (Ondansetron 4 Mg/2 Ml Vial) 4 mg IV-PUSH Q4H PRN PRN Reason: Nausea And Vomiting Stop: 09/16/24 11:28 Pantoprazole Sodium (Pantoprazole 40 Mg Tablet.Dr) 40 mg PO BID RYAN Stop: 09/15/24 20:59 Last Admin: 09/17/23 08:56 Dose: 40 mg Pilocarpine HCl (Pilocarpine 2% Op Soln 300 Drops/15 Ml Bottle) 1 drops EYE-LEFT BID RYAN Stop: 09/15/24 20:59 Last Admin: 09/17/23 08:57 Dose: 1 drops Polyethylene Glycol (Polyethylene Glycol 3350 17 Gm Powd.Pack) 17 gm PO DAILY RYAN Stop: 09/16/24 08:59 Last Admin: 09/17/23 08:57 Dose: Not Given Timolol Maleate (Timolol Mal 0.5% Op Soln 100 Drops/5 Ml Bottle) 1 drops EYE- BOTH BID RYAN Stop: 09/15/24 20:59 Last Admin: 09/17/23 08:57 Dose: 1 drops Vancomycin HCl (Vancomycin - Pharmacy Dosing 1 Each Miscell) 1 each IV ONCE PRN; Protocol PRN Reason: ZZ.Pharmacy Consult Vitamin B Complex/Vit C/Folic Acid (Folic Acid/Vit Bcomp,C 1 Tab Tablet) 1 tab PO DAILY RYAN Stop: 09/16/24 08:59 Last Admin: 09/17/23 08:56 Dose: 1 tab Allergies cephalexin [From Keflex] Adverse Reaction (Verified 08/09/23 11:19) Itching Results Labs 09/17/23 06:16 11/26/23 06:16 Labs: 09/16/23 09/17/23 13:51 06:16 BUN 51 H 54 H Creatinine 12.11 H 12.08 H Albumin 3.0 L 2.5 L Radiology Impressions Impressions - last 24 hours: Impressions Chest X-Ray 09/16/23 13:29 IMPRESSION: No acute process. Impression dictated by: Shahbaz Owen M.D.09/16/2023 2:18 PM Dictation Location: [place] [address] Any impression(s) listed above is documentation that was entered by the reading physician into a diagnostic report(s) for [facility]. I have reviewed the report(s) and am incorporating any findings in the treatment plan of this patient where applicable. A&P - Nephrology Assessment/Plan (1) End-stage renal disease on peritoneal dialysis: Assessment/Problem Details: Patient was recently started on peritoneal dialysis for progressive CKD s/p partial left nephrectomy for renal cell cancer and currently with proteinuria. He normally follow-up with Dr. Winchester in [place] and he was started on [facility] dialysis on June 2023 (2) Fever: Assessment/Problem Details: Patient presents with fever and abdominal pain however PD fluid cell count showed WBCs count 67 with neutrophils 25% ruling out possibility of peritonitis. (3) Abdominal pain: Assessment/Problem Details: Patient presented with abdominal pain that has resolved on antibiotics. PD fluid analysis was not suggestive of peritonitis. (4) Hypertensive chronic kidney disease with stage 5 chronic kidney disease or end stage renal disease: Assessment/Problem Details: Blood pressure is well-controlled on multiple blood pressure medications. (5) Renal mass of unknown nature: Assessment/Problem Details: CT scan of the abdomen from [place] ER was reviewed and the patient had 6.6 cm mass arising from the lower pole of the right kidney suggestive of possible neoplasm. These need to be addressed as a outpatient after improvement of current infection. Plan * Patient feels much better. No fever or abdominal pain. He is currently on broad-spectrum antibiotics including vancomycin and piperacillin/tazobactam. PD fluid analysis is not suggestive of peritonitis. PD fluid culture still pending * Continue CAPD during hospital stay 2 L Dianeal solution, 2.5% every 4 hours. * Will continue IV vancomycin and Zosyn pending the result of blood culture and urine cultures. * Continue gentamicin cream 1% at exit site daily * Continue nystatin 400,000 units every 8 hours orally for fungal prophylaxis since he is on antibiotics. * Monitor vancomycin trough daily and re dose intraperitoneally once trough level dropped below 15 * All medications were reviewed. Blood pressure is reasonably controlled. * Monitor daily intake and output and renal panel to adjust dialysis prescriptions and medications as indicated. Documented By: Rochelle Fuller MD 09/17/23 1131 Signed By: <Electronically signed by MD Rochelle Fuller> 09/17/[address] [facility] Work Phone: 1(363) 635-291911-25-2023 Consult note Author Rochelle Fuller [facility] September 16, 2023 2:10pmNote Date/TimeSeptember 16, 2023 2:10pm[place] [address] Nephrology Consult Note Signed Patient: Luis Chong III MR#: [id number] : 1955 Acct:[id number] Age/Sex: 68 / M Adm Date: 3 Loc: Room: [address] [place] [address] Type: ADM INOo Attending Dr: Ron Cardenas DO Copies to: MD Angel Luis Salas MD Michael R. Frings, DO~ Providers Consult Date: 09/16/23 Requesting Provider: Ron Cardenas DO Primary Care Provider: Angel Luis Sanches MD HPI Reason for Consult: Abdominal pain and fever, possibly PD related peritonitis History of Present Illness: Mr. Chong is a 68-year-old -Nepalese male with history of ESRD who was just started PD underthe care of Dr. Winchester in [facility]. Patient has renal cell carcinoma s/p partial left nephrectomy in 1999. Patient was just recently started PD on June 2023 and he uses a cycler at home withhelp of his . Patient presented to ER [facility] on 09/16 with altered mental status and abdominal pain. Evaluation in ER showed fever [address] scan of the abdomen and pelvis was obtained that showed 6.6 cm mass arising from the left lower pole of the right kidney suggestive of malignancy. CT scan was done without contrast. PD catheter was in place with no other significant intra- abdominal abnormalities. Patient was loaded empirically with IV vancomycin 2 g and piperacillin/tazobactam. Unfortunately no PD fluid was obtained for Gram stain or culture since [facility] has distribution engineering technologist with PD procedures. Subsequently, the patient was transferred to [facility] for management. Patient was recently admitted at [facility] on July 2023 with slurredspeech and right facial droop and he was evaluated by neurology for possible CVA. 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 I am seeing the patient in his room. He looks ill with temperature 39.2 ?C. Pulse 118/min regular. Blood pressure 134/79. He has mild abdominal tenderness. He has a Abbasi catheter with about 200 cc of dark concentrated urine. PD catheter exit site looks clean and covered with clean dressing. No exit site infection or discharge. The abdomen is mildly tender however no rebound. No palpable organs or masses. Patient has mild lower extremity edema. His stated that he uses 2 large bags of greenPD fluid overnight and he has last fill. Diagnostic studies from [facility] was reviewed. Patient had viral screening for flu a, B RSV and COVID that was negative. Urine analysis showed significantproteinuria with no evidence of infection. Lipase within normal limits 40. BUN45 and creatinine 12. WBCs count 7.9 and hemoglobin 12.6. Potassiu m 4.8. EKG showed sinus tachycardia. Patient denies any nausea or vomiting. Has decreased oral intake. No chest pain. No orthopnea or PND. No cough or expectoration Review of Systems Review of Systems All other systems reviewed & are negative unless noted below or in HPI Constitutional Constitutional: Reports system reviewed and no additional complaints, except as documented Cardiovascular Cardiovascular: Reports system reviewed and no additional complaints, except as documented Respiratory Respiratory: Reports system reviewed and no additional complaints, except as documented Gastrointestinal Gastrointestinal: Reports system reviewed and no additional complaints, except as documented Genitourinary Genitourinary: Reports system reviewed and no additional complaints, except as documented Neurologic Neurologic: Reports system reviewed and no additional complaints, except as documented Hematologic/Lymphatic Hematologic/Lymphatic: Reports system reviewed and no additional complaints, except as documented [facility] Medical History (Updated 09/16/23 @ 14:09 by Rochelle Fuller MD) Anemia Hutchinson's palsy Cluster headache Diverticulitis GERD (gastroesophageal reflux disease) Glaucoma Gout History of kidney cancer Hyperlipidemia Hypertension Kidney failure Surgical History History of hernia repair History of nephrectomy partial, tumor removed Family History (Updated 06/10/23 @ 00:13 by Ai Vasquez APRN) Sister COPD (chronic obstructive pulmonary disease) Brain cancer Sister COPD (chronic obstructive pulmonary disease) Mother CHF (congestive heart failure) Diabetes mellitus, type 2 Kidney failure Grandparent Stroke Social History Smoking Status: Never smoker Substance Use Type: None Meds Medications & Allergies Allergies cephalexin [From Keflex] Adverse Reaction (Verified 08/09/23 11:19) Itching Home Medications aaymzcapok-njlhjqrrurmwi-uhkgnvze 50 mg-325 mg-40 mg capsule 1 cap PO Q4H PRN Pain 07/14/18 [History Confirmed 09/16/23] omeprazole 20 mg capsule,delayed release 40 mg PO QAM 07/14/18 [History Confirmed 09/16/23] verapamil 240 mg 24 hr capsule,extended release 240 mg PO QAM 07/14/18 [History Confirmed 09/16/23] allopurinol 100 mg tablet 100 mg PO QAM 09/27/22 [History Confirmed 08/09/23] atorvastatin 80 mg tablet 80 mg PO QHS 09/27/22 [History Confirmed 09/16/23] brimonidine 0.2 % eye drops 1 drp Eye-Both BID 09/27/22 [History Confirmed 09/16/23] calcitriol 0.5 mcg capsule 0.5 mcg PO QAM 09/27/22 [History Confirmed 08/09/23] dorzolamide 2 % eye drops 1 drp Eye-Both BID 09/27/22 [History Confirmed 09/16/23] furosemide 40 mg tablet 40 mg PO BID 09/27/22 [History Confirmed 09/16/23] gabapentin 300 mg capsule 300 mg PO QHS 09/27/22 [History Confirmed 08/09/23] timolol maleate 0.5 % eye drops 1 drp Eye-Both BID 09/27/22 [History Confirmed 09/16/23] latanoprost 0.005 % eye drops 1 drp Eye-Left HS 08/09/23 [History Confirmed 09/16/23] magnesium oxide 400 mg (241.3 mg magnesium) tablet 400 mg PO DAILY 08/09/23 [History Confirmed 09/16/23] pilocarpine HCl 2 % eye drops 1 drp Eye-Left BID 08/09/23 [History Confirmed 09/16/23] polyethylene glycol 3350 17 gram/dose oral powder 17 g PO DAILY 08/09/23 [History Confirmed 09/16/23] potassium chloride 20 mEq tablet,extended release(part/cryst) (Klor-Con M) 20 meq PO BID 08/09/23 [History Confirmed 09/16/23] sevelamer carbonate 800 mg tablet 800 mg PO TIDWMEAL 08/09/23 [History Confirmed 08/09/23] vitamin B complex-vitamin C 100 mg-folic acid 1 mg tablet (Dialyvite) 1 tab PO DAILY 08/09/23 [History Confirmed 09/16/23] hydralazine 50 mg tablet 100 mg PO BID 09/16/23 [History Confirmed 09/16/23] valsartan 80 mg tablet 80 mg PO DAILY 09/16/23 [History Confirmed 09/16/23] Active Medications: Active Medications Acetaminophen (Acetaminophen 500 Mg Tablet) 1,000 mg PO Q6H PRN PRN Reason: Fever or Pain Stop: 09/15/24 13:12 Last Admin: 09/16/23 13:42 Dose: 1,000 mg Atorvastatin Calcium (Atorvastatin 80 Mg Tablet) 80 mg PO QHS RYAN Stop: 09/15/24 21:59 Brimonidine Tartrate (Brimonidine 0.2% Op Soln 100 Drops/5 Ml Bottle) 1 drops EYE-BOTH BID RYAN Stop: 09/15/24 20:59 Dorzolamide HCl (Dorzolamide 2% Op Soln 200 Drops/10 Ml Bottle) 1 drops EYE-BOTH BID RYAN Stop: 09/15/24 20:59 Piperacillin Sod/Tazobactam Sod (Zosyn) 3.375 gm in 100 mls @ 200 mls/hr IV ONCE ONE Stop: 09/16/23 13:09 Ketorolac Tromethamine (Ketorolac Tromethamine 15 Mg/Ml Vial) 15 mg IV-PUSH Q6HPRN PRN Reason: Moderate Pain / Fever Stop: 09/21/23 13:34 Latanoprost (Latanoprost 0.005% Op Soln 50 Drops/2.5 Ml Bottle) 1 drops EYE-LEFT HS RYAN Stop: 09/15/24 21:59 Magnesium Oxide (Magnesium Oxide 400 Mg Tablet) 400 mg PO DAILY RYAN Stop: 09/16/24 08:59 Pantoprazole Sodium (Pantoprazole 40 Mg Tablet.) 40 mg PO BID RYAN Stop: 09/15/24 20:59 Pilocarpine HCl (Pilocarpine 2% Op Soln 300 Drops/15 Ml Bottle) 1 drops EYE-LEFT BID RYAN Stop: 09/15/24 20:59 Polyethylene Glycol (Polyethylene Glycol 3350 17 Gm Powd.Pack) 17 gm PO DAILY RYAN Stop: 09/16/24 08:59 Timolol Maleate (Timolol Mal 0.5% Op Soln 100 Drops/5 Ml Bottle) 1 drops EYE- BOTH BID RYAN Stop: 09/15/24 20:59 Vancomycin HCl (Vancomycin - Pharmacy Dosing 1 Each Miscell) 1 each IV ONCE PRN; Protocol PRN Reason: ROVERTO.Pharmacy Consult Vitamin B Complex/Vit C/Folic Acid (Folic Acid/Vit Bcomp,C 1 Tab Tablet) 1 tab PO DAILY RYAN Stop: 09/16/24 08:59 Exam Physical Exam Vital Signs: Temp Pulse Resp BP Pulse Ox O2 Del Method 39.2 C H 118 H 20 134/79 97 Room Air 09/16/23 12:37 09/16/23 12:37 09/16/23 12:37 09/16/23 12:37 09/16/23 12:37 09/16/23 12:40 Narrative: Constitutional: Morbidly obese, looks ill and febrile. No respiratory distress HEENT: Atraumatic, normal cephalic. No pallor or jaundice Cardiovascular: RRR, normal S1-S2, no gallop or rub, No JVD Respiratory: Good bilateral air entry no wheezing or crackles Gastrointestinal: Soft, non tender, positive bowel sounds. No palpable organs. He has PD catheter with clean exit site covered with clean dressing. No discharge or signs of exit site infection. Extremities: 1+ edema Skin: No rashes or bruises Musculoskeletal: No joints swellings or inflammation Neurology: Awake however he seems to be mildly confused. He has a right facial droop. He is able toanswer simple questions however he is slow to answer. Psych: Flat affect Results Radiology Impressions Impressions - last 24 hours: Any impression(s) listed above is documentation that was entered by the reading physician into a diagnostic report(s) for Luis Chong III. I have reviewed the report(s) and am incorporating any findings in the treatment plan of this patient where applicable. A&P - Nephrology Assessment/Plan (1) End-stage renal disease on peritoneal dialysis: Assessment/Problem Details: Patient was recently started on peritoneal dialysis for progressive CKD s/p partial left nephrectomy for renal cell cancer and currently with proteinuria. He normally follow-up with Dr. Winchester in [place] and he was started on [facility] dialysis on June 2023 (2) Fever: Assessment/Problem Details: Patient presents with fever and abdominal pain suggestive of possible peritonitis. He was loaded with IV vancomycin and piperacillin/tazobactam at [place] [facility] (3) Abdominal pain: Assessment/Problem Details: Patient has vague abdominal pain with fever possibly related to peritoneal dialysis. No nausea or vomiting (4) Hypertensive chronic kidney disease with stage 5 chronic kidney disease or end stage renal disease: Assessment/Problem Details: Blood pressure is well-controlled on multiple blood pressure medications. (5) Renal mass of unknown nature: Assessment/Problem Details: CT scan of the abdomen from [place] [facility] was reviewed and the patient had 6.6 cm mass arising from the lower pole of the right kidney suggestive of possible neoplasm. These need to be addressed as a outpatient after improvement of current infection. Plan * Patient is currently on appropriate antibiotics although it is IV rather than intraperitoneal. Will drain the abdomen and send PD fluid for Gram stain and culture. * Will switch to extended dialysis to CAPD during hospital stay 2 L Dianeal solution, 2.5% every 4 hours. * Since patient already loaded with IV vancomycin 2 g was given earlier this morning, no IV antibiotics needed at this point. Will continue ampicillin/tazobactam IV pending the result of blood culture, urine culture and PD fluid culture. * Will add gentamicin cream 1% at exit site daily * Will add nystatin 400,000 units every 8 hours orally for fungal prophylaxis since he is on antibiotics. * Monitor vancomycin trough daily and re dose intraperitoneally once trough level dropped below 15 * All medications were reviewed. Blood pressure is reasonably controlled. * Monitor daily intake and output and renal panel to adjust dialysis prescriptions and medications as indicated. I appreciate this consultation we will be happy to follow the patient with you during hospital stay. Documented By: Rochelle Fuller MD 09/16/23 7994 Signed By: <Electronically signed by MD Rochelle Fuller> 09/16/[address] [facility] Work Phone: [phone]) 899-657811-25-2023 History and physical note Author Ron Cardenas [facility] September 16, 2023 1:27pmNote Date/TimeNov2022 12:52pmSharon Ville [id number] Hospitalist H&P Signed Patient: Luis Chong III MR#: [id number] : 1955 Acct:[id number] Age/Sex: 68 / M Adm Date: 3 Loc: Room: [address] [place] [address] Type: ADM INOo Attending Dr: Ron Cardenas DO Copies to: MD Ron Sandoval, DO~ HPI DATE OF EXAMINATION: 09/16/23 CHIEF COMPLAINT: Altered mental status HISTORY OF PRESENT ILLNESS: This patient is a 68-year-old male who presented to [place] [facility] this past eveningwith reports of altered mental status and abdominal pain. He was reportedly brought in by family after he was noted to be significantly confused. Fevers were as high as 103 ?F. He was excepted by the overnight hospitalist and arrives this morning continually febrile and tachycardic at 102.5 ?F and rate 118 respectively. The patient has a history of ESRD treated with [facility]. [facility] Zosyn. 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 Viral screening for flu A/B, RSV and COVID-19 were negative. Urinalysis showed the presence of greater than 300 protein, glucose and trace hemoglobin but was largely noninfectious appearing. Lipase within normal limits at 40. BUN/creatinine 45/12.03. LFTs within normal limits apart from a slight elevation in ALT of 51. Magnesium 1.6, lactic acid 3.1 elevated. CBC shows a white blood cell count of 7.9 with a predominance of neutrophils, H&H 12.6/38.6%, platelets 164. High- sensitivity troponin 0.13, EKG showed sinus tachycardia. Antipyretic therapy with NV Tylenol and IV ketorolac were provided., Subsequent repeat lactate less elevated at 2.4. On arrival here to [facility] the patient is responsive to questioning but mildly tremorous and with ongoing fevers 102.5 ?F. Blood pressure is maintaining tachycardia in the 110?120 range. Physical Examination: GENERAL APPEARANCE: Alert, up in bed AAOx3 HEENT: NCAT, MMM, bilateral injected conjunctiva NECK: Neck soft w/o masses, visible JVD CARDIAC: Normal S1 and S2. No S3, S4 or murmurs. LUNGS: Clear to auscultation anteriorly ABDOMEN: Positive bowel sounds. Soft, nontender. No guarding or signs of an acute abdomen. PD catheter noted without any signs of redness or drainage EXTREMITIES: No clubbing, cyanosis. Trace pitting edema SKIN: Warm, chronic abdominal lesions noted PSYCHIATRIC: Appropriate mood and affect Assessment and plan: 1. Severe sepsis of unknown etiology 2. ESRD on peritoneal dialysis 3. Febrile encephalopathy 4. Tachycardia 5. Anemia of chronic kidney disease 6. Hypertension 7. Hyperlipidemia 8. Glaucoma 9. Morbid obesity 10. Chronic diastolic congestive heart failure 11. Mild aortic stenosis Patient received vancomycin and Zosyn for broad-spectrum coverage at outside facility. These 2 antibiotics will be continued for now. His PD cath site does not appear infected. Urinalysis at outside facility was largely noninfectious appearing. Recent relatively high dose 60 mg daily for 7 days of prednisone wasprovided a month ago for empiric treatment of a Hutchinson's palsy, unlikely severely immunosuppressive. The patient has visible JVD and moist mucous membranes. I do not feel that he would benefit from further IV fluid resuscitation. It is unclear exactly how much fluid he received at outside ER. He is hypertensive and tachycardic with accompanying fever at the moment. Monitor for progression to shock. No urgent needs for hemodialysis at the moment. Consult to nephrology. His last echocardiogram in May of this year showed a preserved ejection fraction 65 to 70%, mild diastolic dysfunction, mild aortic stenosis, 3.9 cm dilated aortic root with no significant right ventricular dysfunction. Will obtain stat labs including CBC and CMP along with lactic acid at this time. Given his JVD will obtain a chest x-ray. Unlikely the patient has a significant decline in cardiac function butwith increased demands of high-gradefever he may be developing transient CHF. Presently he has no O2 requirement. His home glaucoma eyedrops will be continued. Antihypertensives held at the moment for possible progressing sepsis. Review of Systems Review of Systems All other systems reviewed & are negative unless noted below or in HPI [facility] Medical History Anemia Hutchinson's palsy Cluster headache Diverticulitis GERD (gastroesophageal reflux disease) Glaucoma Gout History of kidney cancer Hyperlipidemia Hypertension Kidney failure Surgical History History of hernia repair History of nephrectomy partial, tumor removed Family History (Updated 06/10/23 @ 00:13 by Ai Vasquez APRN) Sister COPD (chronic obstructive pulmonary disease) Brain cancer Sister COPD (chronic obstructive pulmonary disease) Mother CHF (congestive heart failure) Diabetes mellitus, type 2 Kidney failure Grandparent Stroke Social History Smoking Status: Never smoker Substance Use Type: None Meds Medications and Allergies Allergies cephalexin [From Keflex] Adverse Reaction (Verified 08/09/23 11:19) Itching Home Medications iipwgwbauk-lszrpmllwujtu-vnkzfllb 50 mg-325 mg-40 mg capsule 1 cap PO Q4H PRN Pain 07/14/18 [History Confirmed 09/16/23] omeprazole 20 mg capsule,delayed release 40 mg PO QAM 07/14/18 [History Confirmed 09/16/23] verapamil 240 mg 24 hr capsule,extended release 240 mg PO QAM 07/14/18 [History Confirmed 09/16/23] allopurinol 100 mg tablet 100 mg PO QAM 09/27/22 [History Confirmed 08/09/23] atorvastatin 80 mg tablet 80 mg PO QHS 09/27/22 [History Confirmed 09/16/23] brimonidine 0.2 % eye drops 1 drp Eye-Both BID 09/27/22 [History Confirmed 09/16/23] calcitriol 0.5 mcg capsule 0.5 mcg PO QAM 09/27/22 [History Confirmed 08/09/23] dorzolamide 2 % eye drops 1 drp Eye-Both BID 09/27/22 [History Confirmed 09/16/23] furosemide 40 mg tablet 40 mg PO BID 09/27/22 [History Confirmed 09/16/23] gabapentin 300 mg capsule 300 mg PO QHS 09/27/22 [History Confirmed 08/09/23] timolol maleate 0.5 % eye drops 1 drp Eye-Both BID 09/27/22 [History Confirmed 09/16/23] latanoprost 0.005 % eye drops 1 drp Eye-Left HS 08/09/23 [History Confirmed 09/16/23] magnesium oxide 400 mg (241.3 mg magnesium) tablet 400 mg PO DAILY 08/09/23 [History Confirmed 09/16/23] pilocarpine HCl 2 % eye drops 1 drp Eye-Left BID 08/09/23 [History Confirmed 09/16/23] polyethylene glycol 3350 17 gram/dose oral powder 17 g PO DAILY 08/09/23 [History Confirmed 09/16/23] potassium chloride 20 mEq tablet,extended release(part/cryst) (Klor-Con M) 20 meq PO BID 08/09/23 [History Confirmed 09/16/23] sevelamer carbonate 800 mg tablet 800 mg PO TIDWMEAL 08/09/23 [History Confirmed 08/09/23] vitamin B complex-vitamin C 100 mg-folic acid 1 mg tablet (Dialyvite) 1 tab PO DAILY 08/09/23 [History Confirmed 09/16/23] hydralazine 50 mg tablet 100 mg PO BID 09/16/23 [History Confirmed 09/16/23] valsartan 80 mg tablet 80 mg PO DAILY 09/16/23 [History Confirmed 09/16/23] Exam Physical Exam Vital Signs: Temp Pulse Resp BP Pulse Ox O2 Del Method 102.5 F H 118 H 20 134/79 97 Room Air 09/16/23 12:37 09/16/23 12:37 09/16/23 12:37 09/16/23 12:37 09/16/23 12:37 09/16/23 12:40 Assessment & Plan IP vs OBS Justification Based on differential dx, clinical care plan, and risk of adverse events, if untreated, in my clinical judgement this patient requires an acute care setting as: INPATIENT because of an expectation ofan over 2 midnight stay. Estimated length of stay (# of days): 4 Documented By: Ron Cardenas DO 09/16/23 12 45 Signed By: <Electronically signed by Ron Cardenas DO> 09/16/[address] [facility] Work Phone: [phone]) 402-578610-23-2023 History of Present illness Narrative* Mourhaf Traboulssi, MD - 08/14/2023 2:30 PM EDT Subjective Luis Chong III is a 68 y.o. male Chief Complaint Follow-up HPI Patient is here for follow-up from recent hospitalization where he was seen for syncopal episode. His cardiac work-up was benign. He underwent an outpatient event monitor which failed to demonstrate any arrhythmia. He presented subsequently with what appeared to be a acute cerebrovascular event manifested by difficulty with speech and left-sided weakness. He was in the hospital few days and was discharged. He reports his blood pressure was significantly elevated. The patient denies chest pain, lightheadedness, dizziness or syncope. Today in the office his blood pressure remains suboptimally controlled. Assessment 1. Recent evaluation for syncope work-up was negative no clear etiology. His recent event monitor was negative for significant arrhythmia 2. Hypertension suboptimally controlled 3. Recent presentation with stroke manifested with left sided facial droop 4. Obesity close 2 morbid 5. Hyperlipidemia on treatment 6. Gout 7. Mildly dilated aortic root 8. Mild aortic stenosis with peak gradient of 24 mmHg 9. End-stage renal disease on peritoneal dialysis Plan 1. I reviewed with the patient the results of his syncope work-up including echocardiogram and event monitor 2. I advised the patient to start valsartan 80 mg to optimize blood pressure control 3. Patient was counseled regarding losing weight, exercise and dietary modification 4. Patient was advised to notify me if change in cardiac status or symptoms 5. We discussed ischemic evaluation but the patient wanted to defer for now 6. Patient will be seen back in the office in 6 months in follow-up and will have a blood pressure check in 6 weeks Review of Systems Neurological: Recent presentation with left facial droop and diagnosed with a recent cerebrovascular event detailis lacking All other systems reviewed and are negative. Visit Vitals BP 160/90 (BP Location: Right arm, Patient Position: Sitting) Pulse 60 Ht 1.854 m (6' 1 ) Wt 134 kg (296 lb) BMI 39.05 kg/m Smoking Status Never BSA 2.63 m Objective Physical Exam Constitutional: Appearance: Normal appearance. He is normal weight. HENT: Nose: Nose normal. Neck: Vascular: No carotid bruit. Cardiovascular: Rate and Rhythm: Normal rate. Pulses: Normal pulses. Heart sounds: Normal heart sounds. Pulmonary: Effort: Pulmonary effort is normal. Abdominal: General: Bowel sounds are normal. Palpations: Abdomen is soft. Genitourinary: Rectum: Normal. Musculoskeletal: General: Normal range of motion. Cervical back: Normal range of motion. Right lower leg: No edema. Left lower leg: No edema. Skin: General: Skin is warm and dry. Neurological: General: No focal deficit present. Mental Status: He is alert. Comments: Left facial droop Psychiatric: Mood and Affect: Mood normal. Behavior: Behavior normal. Thought Content: Thought content normal. Judgment: Judgment normal. Current Medications Current Outpatient Medications: allopurinol (Zyloprim) 100 mg tablet, Take 1 tablet (100 mg) by mouth once daily., Disp: , Rfl: atorvastatin (Lipitor) 80 mg tablet, Take 1 tablet (80 mg) by mouth once daily at bedtime., Disp: ,Rfl: brimonidine (AlphaGAN) 0.2 % ophthalmic solution, Administer 1 drop into both eyes 2 times a day., Disp: , Rfl: calcitriol (Rocaltrol) 0.5 mcg capsule, Take 1 capsule (0.5 mcg) by mouth once daily., Disp: , Rfl: dorzolamide (Trusopt) 2 % ophthalmic solution, Administer 1 drop into both eyes 2 times a day., Disp: , Rfl: furosemide (Lasix) 40 mg tablet, Take 2 tablets (80 mg) by mouth 2 times a day., Disp: , Rfl: gabapentin (Neurontin) 300 mg capsule, Take 1 capsule (300 mg) by mouth once daily at bedtime., Disp: , Rfl: hydrALAZINE (Apresoline) 100 mg tablet, Take 1 tablet (100 mg) by mouth 3 times a day., Disp: , Rfl: omeprazole (PriLOSEC) [address] capsule, Take 2 capsules (40 mg) by mouth once daily in the morning.Take before meals. Do not crush or chew., Disp: , Rfl: sodium bicarbonate 650 mg tablet, Take 1 tablet (650 mg) by mouth 3 times a day with meals., Disp: , Rfl: timolol (Timoptic) 0.5 % ophthalmic solution, Administer 1 drop into both eyes 2 times a day., Disp: , Rfl: verapamil SR (Calan-SR) 240 mg ER tablet, Take 1 tablet (240 mg) by mouth once daily at bedtime. Donot crush or chew., Disp: , Rfl: valsartan (Diovan) 80 mg tablet, Take 1 tablet (80 mg) by mouth once daily., Disp: 30 tablet, Rfl: 11 Assessment/Plan 1. Syncope, unspecified syncope type 2. Nonrheumatic aortic valve stenosis Follow Up In Cardiology Follow Up In Cardiology 3. Dilated aortic root (CMS/HCC) 4. Dialysis patient (CMS/HCC) 5. Essential hypertension valsartan (Diovan) 80 mg tablet Follow Up In Cardiology Follow Up In Cardiology 6. Cerebrovascular accident (CVA), unspecified mechanism (CMS/HCC) 7. Gout, unspecified cause, unspecified chronicity, unspecified site 8. BMI 39.0-39.9,adult [facility] Work Phone: [phone]) 791-265910-23-2023 Instructions* Patient Instructions* Patito Smart LPN - 08/14/2023 2:30 PM EDT Please bring all medicines, vitamins, and herbal supplements with you when you come to the office. Prescriptions will not be filled unless you are compliant with your follow up appointments or have a follow up appointment scheduled as per instruction of your physician. Refills should be requested at the time of your visit. [facility] Work Phone: [phone]) 694-522510-20-2023 Discharge summary Author Jimenez Rodríguez [facility] August 11, 2023 1:19pmNote Date/TimeOct2022 1:19pm[place] [address] Discharge Summary Signed Patient: Luis Chong III MR#: [id number] : 1955 Acct:[id number] Age/Sex: 68 / M Adm Date: 3 Loc: Room: [address] [place] [address]: Jimenez Rodríguez DO Copies to: DO Angel Luis Romero MD~ Providers Date of Discharge: 08/11/23 Discharging Provider: Jimenez Rodríguez Primary Care Provider: Angel Luis Sanches Consults: 08/09/23 15:07 Consult to Neurology Routine 08/09/23 15:58 Consult to Nephrology Routine 08/10/23 11:34 Consult to Speech Therapy Routine Discharge Diagnosis (1) End-stage renal disease on peritoneal dialysis: (2) Hypertensive chronic kidney disease with stage 1 through stage 4 chronic kidney disease, or unspecified chronic kidney disease: (3) Hyperkalemia: (4) Anemia of renal disease: (5) Acute cerebrovascular accident (CVA): Final Diagnosis Final Discharge Diagnosis: ESRD on PD with hyperkalemia, obstructed PD catheter, Cranial nerve 7 palsy, HTNurgency Summary Hospital Course Hospital course: 68 y/o M with PMHx of HTN/HLD, ESRD on daily PD who presents today with slurred speech and R sided facial droop which he awoke with this AM. Last well known wasaround 8pm last night. Pt states he hashad previous facial droop when he had Hutchinson's Palsy, but at that time was not associated wtih slurred speech so he cameto the ED where workup was largely unremarkable including CT/CTA head/neck. Uponexam, pt with obvious slurred speech and R sided facial droop. Pt states he has claustrophobia and does not want an MRI, despite telling him we have medicationsthat can calm him down. Pt agreeable to admission for CVA workup. MRI ordered along with ativan for claustrophobia and neurology and nephrology consulted. Neurology examined pt and determined that his symptoms were likely a recurrence of cranial nerve 7 palsy ([place] palsy) but could not give a definitive reason for the recurrence and recommended MRI which pt refused. Pt was agreeable, afterdiscussion with myself and neurology, to have anopen MRI scheduled at a later date. Neurology recommended 7 days of prednisone. Pt was set to go home, but BP spiked into the 200s and PD catheter obstructed. Nephrology ordered heparin to unblock catheter and catheter started working again. Labs showed hyperkalemia on08/10 [facility] which [facility]. BP meds were adjusted, increasing hisPO hydralazine 50mg BID to 100mg TID and BP improved. Pt stable for discharge on08/11 on PO prednisone and new BP regimen and discharged in stable andimproved condition to follow up with neurology to further discuss scheduling outpatient open MRI. Condition Condition at Discharge: Stable Status at Discharge Overall status at discharge: patient is progressing back to baseline Time Spent with Patient Time spent providing/coordinating discharge services (# min): 45 Diagnostic Studies Completed and Pending Studies Pending studies at discharge: 08/12/23 05:00 Basic Metabolic Panel [CHEM] IN AM Complete Blood Count Auto Diff IN AM 08/13/23 05:00 Basic Metabolic Panel [CHEM] IN AM Complete Blood Count Auto Diff IN AM 08/14/23 05:00 Basic Metabolic Panel [CHEM] IN AM Complete Blood Count Auto Diff IN AM 08/15/23 05:00 Complete Blood Count Auto Diff IN AM 08/16/23 05:00 Complete Blood Count Auto Diff IN AM 08/17/23 05:00 Complete Blood Count Auto Diff IN AM 08/18/23 05:00 Complete Blood Count Auto Diff IN AM 08/19/23 05:00 Complete Blood Count Auto Diff IN AM Labs on day of discharge: 08/11/23 07:54: PHA Creatinine Clear 9.93, Sodium 136, Potassium 4.5, Chloride 100, Carbon Dioxide 25.1, Anion Gap 15.4 H, BUN 40 H, Creatinine 10.48 H, Est GFR (CKD-EPI) 4.829, Glucose 117 H, Calcium 9.9 08/11/23 07:54: Corrected WBC 13.5 H, Uncorrected WBC Count 13.5 H, RBC 4.14, Hgb 12.0 L, Hct 37.2 L, MCV 89.9, MCH 29.0, MCHC 32.3 L, RDW 19.0 H, Plt Count 278, MPV 8.3, Neut % (Auto) 82.0, Lymph % (Auto) 10.1, [place] % (Auto) 7.3, Eos % (Auto) 0.2, Baso % (Auto) 0.4, Nucleat RBC Rel Count 0.1, Neut# (Auto) 11.1 H, Lymph # (Auto) 1.4, [place] # (Auto) 1.0 H, Eos # (Auto) 0.0, Baso # (Auto) 0.1 Exam Physical Exam Vital Signs: Temp Pulse Resp BP Pulse Ox O2 Del Method 97.8 F 85 18 164/97 H 97 Room Air 08/11/23 11:17 08/11/23 11:17 08/11/23 11:17 08/11/23 11:17 08/11/23 11:17 08/11/23 11:17 Narrative: General: Awake and alert. Sitting in bed comfortably, dysarthria and R sided facial and R eye droop HEENT: Normocephalic, atraumatic, trachea midline Respiratory: good inspiratory effort, no wheeze, no rhonchi, no crackles Cardiovascular: RRR, normal S1 and S2 Abdominal: soft, obese, no tenderness, no rebound, no guarding, +BS Skin: warm, dry, no lesions or rashes MSK: no edema Neurologic: No focal deficits other than listed above Psych: appropriate affect Discharge Plan Discharge Plan Patient Disposition: Home Activity: No Activity Restriction Diet: Renal and Other Comment: See speech therapy recommendations below. Additional Instructions: Continue peritoneal dialysis treatments as before. Speech therapy recommendations: *Mechanical soft solids *Ground meats *Extra bowl of gravy *Take pills whole or crushed in applesauce *No straws *Take small bites and sips Stand Alone Forms: Work/School Release Form Prescriptions: New prednisone 20 mg Tablet 60 mg PO DAILY 7 Days Qty: 21 0RF hydralazine 50 mg Tablet 100 mg PO TID 30 Days Qty: 180 0RF Continued sevelamer carbonate 800 mg tablet 800 mg PO TIDWMEAL Patient Comments: TAKE 1 TABLET BY MOUTH THREE TIMES A DAY WITH MEALS latanoprost 0.005 % drops 1 drp Eye-Left HS Patient Comments: INSTILL 1 DROP INTO LEFT EYE AT BEDTIME potassium chloride [Klor-Con M20] 20 mEq tablet,ER particles/crystals 20 meq PO BID Patient Comments: TAKE 1 TABLET BY MOUTH TWICE A DAY magnesium oxide 400 mg (241.3 mg magnesium) tablet 400 mg PO DAILY Patient Comments: TAKE ONE TABLET BY MOUTH ONCE A DAY pilocarpine HCl 2 % drops 1 drp Eye-Left BID Patient Comments: INSTILL 1 DROP INTO LEFT EYE TWICE A DAY Dialyvite 100-1 mg tablet 1 tab PO DAILY Patient Comments: TAKE 1 TABLET BY MOUTH EVERY DAY polyethylene glycol 3350 17 gram/dose powder 17 g PO DAILY Patient Comments: MIX 1 SCOOP (17G) IN LIQUID AND DRINK ONCE DAILY DIRECTED swbpqhmbwa-ujzpvaezvizvr-lswq 50-325-40 mg Capsule 1 cap PO Q4H PRN (Reason: Pain) omeprazole 20 mg Capsule,Delayed Release(Dr/Ec) 40 mg PO QAM verapamil 240 mg Capsule,Ext Rel. Pellets 24 Hr 240 mg PO QAM furosemide 40 mg tablet 80 mg PO BID Patient Comments: TAKE 1 TABLET BY MOUTH TWICE A DAY atorvastatin 80 mg tablet 80 mg PO QHS Patient Comments: TAKE 1 TABLET BY MOUTH EVERY DAY allopurinol 100 mg tablet 100 mg PO QAM Patient Comments: TAKE 1 TABLET BY MOUTH EVERY DAY calcitriol 0.5 mcg capsule 0.5 mcg PO QAM Patient Comments: TAKE 1 CAPSULE BY MOUTH EVERY DAY FOR 90 DAYS brimonidine 0.2 % drops 1 drp Eye-Both BID Patient Comments: INSTILL 1 DROP INTO BOTH EYES TWICE A DAY DIRECTED gabapentin 300 mg capsule 300 mg PO QHS Patient Comments: TAKE 1 CAPSULE BY MOUTH THREE TIMES A DAY timolol maleate 0.5 % drops 1 drp Eye-Both BID Patient Comments: INSTILL 1 DROP INTO BOTH EYES TWICE A DAY DIRECTED dorzolamide 2 % drops 1 drp Eye-Both BID Patient Comments: INSTILL 1 DROP INTO BOTH EYES TWICE A DAY DIRECTED Discontinued hydralazine 50 mg tablet 50 mg PO BID Patient Comments: TAKE 1 TABLET BY MOUTH TWICE A DAY WITH FOOD Follow Up: [facility] [Outside] (The office is currently closed. Please call the office for a follow-up appointment. ) Angel Luis Sanches MD [Primary Care Provider] - (The office is aware of your hospital stay and need for follow up, the office will call you to schedule. Please call the office if you have not heard from them by the next business day.) Documented By: Jimenez Rodríguez DO 08/11/23 131 5 Signed By: <Electronically signed by Jimenez Rodríguez DO> 08/11/[address] [facility] Work Phone: [phone]) 611-878510-20-2023 Progress note Author Reece Rdoriguez [facility] August 11, 2023 12:41pmNote Date/TimeOct2022 12:41pm[place] [address] Nephrology Progress Note Signed Patient: Luis Chong III MR#: [id number] : 1955 Acct:[id number] Age/Sex: 68 / M Adm Date: 3 Loc: 3T Room: [address] [place] [address] Type: ADM IN Attending Dr: Jimenez Rodríguez DO Copies to: ~ Date of Service: 08/11/2023 Subjective Subjective Narrative: 68-year-old -Nepalese male patient with a past medical history of end- stage renal disease onPD follows with Dr. Winchester in [facility], renal cell carcinoma status post nephrectomy, gout hypertension, anxiety, hyperlipidemia. Patient woke up yesterday with slurred speech and left facial drop. patient has history of Hutchinson's palsy . Patient presented to outside emergency room where he was transferred to our hospital since he has end-stage renal disease on peritoneal dialysis. Patient does 4 exchanges of PD fluid every night through cycler. He alternates 2.5% dextrose with 1.5 dextrose. CTA of neck and brain reveals no acute occlusion, dissection or critical stenosis. Patient was evaluated by neurology service this morning and started on prednisone for possible Hutchinson's palsy. Patientdeclined MRI due to claustrophobia Last night. The nurse has not been able to drain only inserted PD fluid. Patient uses IV heparin asneeded for drainage difficulty. Patient denied constipation. Noted high blood pressure this morning. Patient on hydralazine 50 mg twice daily, Lasix 80 mg twicedaily, verapamil 240 mg daily. Patient is frustrated about PD catheter ratio. He is asking to be discharged home. Family at bedside. Interval history: Patient was seen and examined at bedside. PD fluid drainage difficulty has resolved with adding heparin to intraperitoneal fluid Patient feeling better. He is calm today. No nausea no vomiting. No shortnessof breath. Continues to have right facial drop. On prednisone for possible Hutchinson's palsy. Noted high blood pressure. Hydralazine dose was increased to 100mg 3 times daily yesterday. Patient also on Lasix 80 mg twice daily Exam Physical Exam Vital Signs: Temp Pulse Resp BP Pulse Ox O2 Del Method 97.8 F 85 18 164/97 H 97 Room Air 08/11/23 11:17 08/11/23 11:17 08/11/23 11:17 08/11/23 11:17 08/11/23 11:17 08/11/23 11:17 Narrative: General: No acute distress Head :atraumatic normocephalic Eyes: PERRLA. Neck: no JVD no bruit. Heart: S1-S2. RRR Respiratory: Clear to auscultation. No wheezing. No crackles Abdomen: Soft, positive bowel sounds,no tenderness. Neurology: Awake alert oriented x3. No focal deficits Extremity. No cyanosis. No edema Skin: No skin rash Objective Intake and Output I&O: Intake & Output 08/08/23 08/09/23 08/10/23 08/11/23 23:59 23:59 23:59 23:59 Intake Total 2660 / 2660 7790 / 7790 4240 / 4240 Output Total 7500 / 7500 1999 / 1999 Balance 2660 / 2660 290 / 290 2240 / 2240 Weight 132 kg 147.5 kg 147.7 kg Meds and Allergies Meds: Active Medications Acetaminophen (Acetaminophen 325 Mg Tablet) 650 mg PO Q6HR PRN PRN Reason: Pain Scale 1 - 3 or fever Stop: 08/08/24 15:06 Hydrocodone Bitart/Acetaminophen (Hydrocodone/Acetaminophen 5-325 Mg Tablet) 1 tab PO Q6H PRN PRN Reason: pain Allopurinol (Allopurinol 100 Mg Tablet) 100 mg PO QAM [facility] Stop: 08/09/24 08:59 Last Admin: 08/11/23 08:31 Dose: 100 mg Aspirin (Aspirin 81 Mg Tablet.) 81 mg PO DAILY [facility] Stop: 08/08/24 15:14 Last Admin: 08/11/23 08:31 Dose: 81 mg Atorvastatin Calcium (Atorvastatin 80 Mg Tablet) 80 mg PO QPM [facility] Stop: 08/08/24 20:59 Last Admin: 08/10/23 21:33 Dose: 80 mg Brimonidine Tartrate (Brimonidine 0.15% Op Soln 100 Drops/5 Ml Drops) 1 drops EYE-BOTH BID [facility] Stop: 08/08/24 20:59 Last Admin: 08/11/23 08:31 Dose: 1 drops Calcitriol (Calcitriol 0.5 Mcg Capsule) 0.5 mcg PO QAM [facility] Stop: 08/09/24 08:59 Last Admin: 08/11/23 08:32 Dose: 0.5 mcg Furosemide (Furosemide 80 Mg Tablet) 80 mg PO BID [facility] Stop: 08/08/24 20:59 Last Admin: 08/11/23 08:32 Dose: 80 mg Gabapentin (Gabapentin 300 Mg Capsule) 300 mg PO QHS [facility] Stop: 08/08/24 21:59 Last Admin: 08/10/23 21:33 Dose: 300 mg Heparin Sodium (Porcine) (Heparin 5,000 Unit/Ml Vial) 5,000 unit SUBCUT Q8HR [facility] Stop: 08/09/24 05:59 Last Admin: 08/11/23 05:52 Dose: 5,000 unit Heparin Sodium (Porcine) (Heparin 1,000 Unit/Ml) 2,000 unit INTRAPERIT Q4H PRN PRN Reason: physician order Stop: 08/09/24 17:29 Last Admin: 08/11/23 09:13 Dose: 2,000 unit Hydralazine HCl (Hydralazine 20 Mg/Ml Vial) 10 mg IV-PUSH Q4H PRN PRN Reason: Hypertension Stop: 08/08/24 19:52 Last Admin: 08/11/23 04:18 Dose: 10 mg Hydralazine HCl (Hydralazine 50 Mg Tablet) 100 mg PO TID [facility] Stop: 08/09/24 14:29 Last Admin: 08/11/23 08:32 Dose: 100 mg Latanoprost (Latanoprost 0.005% Op Soln 50 Drops/2.5 Ml Bottle) 1 drops EYE-LEFT HS [facility] Stop: 08/08/24 21:59 Last Admin: 08/10/23 21:34 Dose: 1 drops Lorazepam (Lorazepam 2 Mg/Ml Vial) 1 mg IV-PUSH Q6H PRN PRN Reason: Agitation Stop: 02/05/24 11:39 Magnesium Oxide (Magnesium Oxide 400 Mg Tablet) 400 mg PO DAILY [facility] Stop: 08/09/24 08:59 Last Admin: 08/11/23 08:32 Dose: 400 mg Metoprolol Tartrate (Metoprolol Tartrate 5 Mg/5 Ml Vial) 5 mg IV-PUSH Q4H PRN PRN Reason: Blood Pressure Stop: 08/08/24 19:52 Last Admin: 08/11/23 05:52 Dose: 5 mg Ondansetron HCl (Ondansetron 4 Mg/2 Ml Vial) 4 mg IV-PUSH Q8H PRN PRN Reason: Nausea And Vomiting Stop: 08/08/24 15:06 Pantoprazole Sodium (Pantoprazole 40 Mg Tablet.Dr) 40 mg PO DAILY [facility] Stop: 08/09/24 08:59 Last Admin: 08/11/23 08:32 Dose: 40 mg Pilocarpine HCl (Pilocarpine 2% Op Soln 300 Drops/15 Ml Bottle) 1 drops EYE-LEFT BID [facility] Stop: 08/08/24 20:59 Last Admin: 08/11/23 08:32 Dose: 1 drops Polyethylene Glycol (Polyethylene Glycol 3350 17 Gm Powd.Pack) 17 gm PO DAILY [facility] Stop: 08/09/24 08:59 Last Admin: 08/11/23 08:42 Dose: Not Given Prednisone (Prednisone 20 Mg Tablet) 60 mg PO DAILY [facility] Stop: 08/16/23 15:44 Last Admin: 08/11/23 08:33 Dose: 60 mg Sevelamer Carbonate (Sevelamer Carbonate 800 Mg Tablet) 800 mg PO TID.WITH.MEALS [facility] Stop: 08/09/24 07:59 Last Admin: 08/11/23 12:32 Dose: 800 mg Sodium Chloride (Sodium Chloride 0.9 % 10 Ml Syringe) 0 ml IV-PUSH PRN PRN PRN Reason: Flush Stop: 08/08/24 11:17 Last Admin: 08/10/23 06:17 Dose: 10 ml Sodium Chloride (Sodium Chloride 0.9 % 10 Ml Vial.Pf) 10 ml INJECTION Q6H PRN PRN Reason: Ativan dilution Stop: 08/08/24 11:39 Sodium Chloride (Sodium Chloride 0.9 % 10 Ml Vial.Pf) 10 ml INJECTION Q4H PRN PRN Reason: Ativan dilution Stop: 08/08/24 15:58 Sodium Zirconium Cyclosilicate (Sodium Zirconium Cyclosilicate 10 Gm Powd.Pack) 10 gm PO TID [facility] Stop: 08/12/23 14:01 Last Admin: 08/11/23 08:34 Dose: 10 gm Timolol Maleate (Timolol Mal 0.5% Op Soln 100 Drops/5 Ml Bottle) 1 drops EYE- BOTH BID [facility] Stop: 08/08/24 20:59 Last Admin: 08/11/23 08:34 Dose: 1 drops Verapamil HCl (Verapamil Er.24hr 120 Mg Cap24h.Pel) 240 mg PO QAM [facility] Stop: 08/09/24 08:59 Last Admin: 08/11/23 08:34 Dose: 240 mg Vitamin B Complex/Vit C/Folic Acid (Folic Acid/Vit Bcomp,C 1 Tab Tablet) 1 tab PO DAILY [facility] Stop: 08/09/24 08:59 Last Admin: 08/11/23 08:32 Dose: 1 tab Allergies cephalexin [From Keflex] Adverse Reaction (Verified 08/09/23 11:19) Itching Results Labs 08/11/23 07:54 08/11/23 07:54 Labs: 08/11/23 07:54 BUN 40 H Creatinine 10.48 H Radiology Impressions Impressions - last 24 hours: Any impression(s) listed above is documentation that was entered by the reading physician into a diagnostic report(s) for Luis Chong III. I have reviewed the report(s) and am incorporating any findings in the treatment plan of this patient where applicable. A&P - Nephrology Assessment/Plan (1) End-stage renal disease on peritoneal dialysis: Assessment/Problem Details: Patient follows with Dr. Winchester in [facility] for end-stage renal disease on CCPD. He has end-stage renal disease from nephrectomy and history of hypertensive nephropathy (2) Hypertensive chronic kidney disease with stage 1 through stage 4 chronic kidney disease, or unspecified chronic kidney disease: Assessment/Problem Details: Blood pressure has been elevated this morning. (3) Hyperkalemia: (4) Anemia of renal disease: Assessment/Problem Details: Hemoglobin is within target for end-stage renal disease patient (5) Acute cerebrovascular accident (CVA): Assessment/Problem Details: patient presented with slurred speech and right facial drop. Patient was evaluated by neurology service this morning and started on prednisone for Hutchinson'spalsy patient declined MRI Plan - Manual PD exchanges are running well without drainage difficulty after adding 1000 units of heparin to each liter of PD fluid -We will continue PD 1 exchange every 4 hours. We will continue alternating 1.5- 2.5 dextrose with 2L filling volume. -Blood pressure is better controlled with increasing hydralazine. No fluid overload. I instructed the patient to use 2.5% dextrose after hospital discharge for better control of blood pressure. 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 -Hyperkalemia resolved. We will stop Lokelma -Prednisone for possible Hutchinson's palsy as directed by neurology service -Continue same outpatient phosphorus binder and active vitamin D for hyperphosphatemia and hyperparathyroidism Okay to discharge patient home from nephrology standpoint with the current hydralazine dose. Please call if any question or concern Documented By: Reece Rodriguez MD 08/11/231236 Signed By: <Electronically signed by Reece Rodriguez MD> 08/11/[address] [facility] Work Phone: 1(176) 251-658210-20-2023 Consult note Author Reece Rodriguez [facility] August 11, 2023 12:37pmNote Date/TimeOct2022 2:26pm[place] [address] Nephrology Consult Note Signed with Juliocesar Patient: Luis Chong III MR#: [id number] : 1955 Acct:[id number] Age/Sex: 68 / M Adm Date: 3 Loc: Room: [address] [place] [address] Type: ADM IN Attending Dr: Jimenez Rodríguez DO Copies to: MD Jimenez Ruiz DO Marc Naderer, MD~ ADDENDUM1 General: No acute distress Head :atraumatic normocephalic Eyes: PERRLA. Neck: no JVD no bruit. Heart: S1-S2. RRR Respiratory: Clear to auscultation. No wheezing. No crackles Abdomen: Soft, positive bowel sounds, slightly distended. No tenderness Neurology: Awake alert oriented x3. No focal deficits Extremity. No cyanosis. No edema Skin: No skin rash Addendum Documented By: Reece Rodriguez MD 08/11/231236 Addendum Signed By: <Electronically signed by Reece Rodriguez MD> 08/11/23 123 Providers Consult Date: 08/10/23 Requesting Provider: Jimenez Rodríguez DO Primary Care Provider: Angel Luis Sanches MD HPI Reason for Consult: End-stage renal disease on PD History of Present Illness: 68-year-old -Nepalese male patient with a past medical history of end- stage renal disease onPD follows with Dr. Winchester in [facility], renal cell carcinoma status post nephrectomy, gout hypertension, anxiety, hyperlipidemia. Patient woke up yesterday with slurred speech and left facial drop. patient has history of Hutchinson's palsy . Patient presented to outside emergency room where he was transferred to our hospital since he has end-stage renal disease on peritoneal dialysis. Patient does 4 exchanges of PD fluid every night through cycler. He alternates 2.5% dextrose with 1.5 dextrose. CTA of neck and brain reveals no acute occlusion, dissection or critical stenosis. Patient was evaluated by neurology service this morning and started on prednisone for possible Hutchinson's palsy. Patientdeclined MRI due to claustrophobia Last night. The nurse has not been able to drain only inserted PD fluid. Patient uses IV heparin asneeded for drainage difficulty. Patient denied constipation. Noted high blood pressure this morning. Patient on hydralazine 50 mg twice daily, Lasix 80 mg twicedaily, verapamil 240 mg daily. Patient is frustrated about PD catheter ratio. He is asking to be discharged home. Family at bedside Review of Systems Review of Systems Review of systems: 12 system review is negative except what mentioned in the [facility] Medical History Anemia Hutchinson's palsy Cluster headache Diverticulitis GERD (gastroesophageal reflux disease) Glaucoma Gout History of kidney cancer Hyperlipidemia Hypertension Kidney failure Surgical History History of hernia repair History of nephrectomy partial, tumor removed Family History (Updated 06/10/23 @ 00:13 by Ai Vasquez APRN) Sister COPD (chronic obstructive pulmonary disease) Brain cancer Sister COPD (chronic obstructive pulmonary disease) Mother CHF (congestive heart failure) Diabetes mellitus, type 2 Kidney failure Grandparent Stroke Social History Smoking Status: Never smoker Substance Use Type: None Meds Medications & Allergies Allergies cephalexin [From Keflex] Adverse Reaction (Verified 08/09/23 11:19) Itching Home Medications wshemoyxwa-oltsqcwmpyqxb-otxilatr 50 mg-325 mg-40 mg capsule 1 cap PO Q4H PRN Pain 07/14/18 [History Confirmed 08/09/23] omeprazole 20 mg capsule,delayed release 40 mg PO QAM 07/14/18 [History Confirmed 08/09/23] verapamil 240 mg 24 hr capsule,extended release 240 mg PO QAM 07/14/18 [History Confirmed 08/09/23] allopurinol 100 mg tablet 100 mg PO QAM 09/27/22 [History Confirmed 08/09/23] atorvastatin 80 mg tablet 80 mg PO QHS 09/27/22 [History Confirmed 08/09/23] brimonidine 0.2 % eye drops 1 drp Eye-Both BID 09/27/22 [History Confirmed 08/09/23] calcitriol 0.5 mcg capsule 0.5 mcg PO QAM 09/27/22 [History Confirmed 08/09/23] dorzolamide 2 % eye drops 1 drp Eye-Both BID 09/27/22 [History Confirmed 08/09/23] furosemide 40 mg tablet 80 mg PO BID 09/27/22 [History Confirmed 08/09/23] gabapentin 300 mg capsule 300 mg PO QHS 09/27/22 [History Confirmed 08/09/23] hydralazine 50 mg tablet 50 mg PO BID 09/27/22 [History Confirmed 08/09/23] timolol maleate 0.5 % eye drops 1 drp Eye-Both BID 09/27/22 [History Confirmed 08/09/23] latanoprost 0.005 % eye drops 1 drp Eye-Left HS 08/09/23 [History Confirmed 08/09/23] magnesium oxide 400 mg (241.3 mg magnesium) tablet 400 mg PO DAILY 08/09/23 [History Confirmed 08/09/23] pilocarpine HCl 2 % eye drops 1 drp Eye-Left BID 08/09/23 [History Confirmed 08/09/23] polyethylene glycol 3350 17 gram/dose oral powder 17 g PO DAILY 08/09/23 [History Confirmed 08/09/23] potassium chloride 20 mEq tablet,extended release(part/cryst) (Klor-Con M) 20 meq PO BID 08/09/23 [History Confirmed 08/09/23] sevelamer carbonate 800 mg tablet 800 mg PO TIDWMEAL 08/09/23 [History Confirmed 08/09/23] vitamin B complex-vitamin C 100 mg-folic acid 1 mg tablet (Dialyvite) 1 tab PO DAILY 08/09/23 [History Confirmed 08/09/23] prednisone 20 mg tablet 60 mg PO DAILY 7 days #21 tabs 08/10/23 [Rx] Active Medications: Active Medications Acetaminophen (Acetaminophen 325 Mg Tablet) 650 mg PO Q6HR PRN PRN Reason: Pain Scale 1 - 3 or fever Stop: 08/08/24 15:06 Hydrocodone Bitart/Acetaminophen (Hydrocodone/Acetaminophen 5-325 Mg Tablet) 1 tab PO Q6H PRN PRN Reason: pain Allopurinol (Allopurinol 100 Mg Tablet) 100 mg PO QAM [facility] Stop: 08/09/24 08:59 Last Admin: 08/10/23 08:20 Dose: 100 mg Aspirin (Aspirin 81 Mg Tablet.Dr) 81 mg PO DAILY [facility] Stop: 08/08/24 15:14 Last Admin: 08/10/23 08:20 Dose: 81 mg Atorvastatin Calcium (Atorvastatin 80 Mg Tablet) 80 mg PO QPM [facility] Stop: 08/08/24 20:59 Last Admin: 08/09/23 21:56 Dose: 80 mg Brimonidine Tartrate (Brimonidine 0.15% Op Soln 100 Drops/5 Ml Drops) 1 drops EYE-BOTH BID [facility] Stop: 08/08/24 20:59 Last Admin: 08/10/23 08:13 Dose: 1 drops Calcitriol (Calcitriol 0.5 Mcg Capsule) 0.5 mcg PO QAM [facility] Stop: 08/09/24 08:59 Last Admin: 08/10/23 08:20 Dose: 0.5 mcg Furosemide (Furosemide 80 Mg Tablet) 80 mg PO BID [facility] Stop: 08/08/24 20:59 Last Admin: 08/10/23 08:19 Dose: 80 mg Gabapentin (Gabapentin 300 Mg Capsule) 300 mg PO QHS [facility] Stop: 08/08/24 21:59 Last Admin: 08/09/23 21:56 Dose: 300 mg Heparin Sodium (Porcine) (Heparin 5,000 Unit/Ml Vial) 5,000 unit SUBCUT Q8HR [facility] Stop: 08/09/24 05:59 Last Admin: 08/10/23 13:44 Dose: Not Given Hydralazine HCl (Hydralazine 20 Mg/Ml Vial) 10 mg IV-PUSH Q4H PRN PRN Reason: Hypertension Stop: 08/08/24 19:52 Last Admin: 08/10/23 06:16 Dose: 10 mg Hydralazine HCl (Hydralazine 50 Mg Tablet) 50 mg PO TID [facility] Stop: 08/09/24 13:59 Latanoprost (Latanoprost 0.005% Op Soln 50 Drops/2.5 Ml Bottle) 1 drops EYE-LEFT HS [facility] Stop: 08/08/24 21:59 Last Admin: 08/09/23 21:42 Dose: 1 drops Lorazepam (Lorazepam 2 Mg/Ml Vial) 1 mg IV-PUSH Q6H PRN PRN Reason: Agitation Stop: 02/05/24 11:39 Magnesium Oxide (Magnesium Oxide 400 Mg Tablet) 400 mg PO DAILY [facility] Stop: 08/09/24 08:59 Last Admin: 08/10/23 08:19 Dose: 400 mg Metoprolol Tartrate (Metoprolol Tartrate 5 Mg/5 Ml Vial) 5 mg IV-PUSH Q4H PRN PRN Reason: Blood Pressure Stop: 08/08/24 19:52 Ondansetron HCl (Ondansetron 4 Mg/2 Ml Vial) 4 mg IV-PUSH Q8H PRN PRN Reason: Nausea And Vomiting Stop: 08/08/24 15:06 Pantoprazole Sodium (Pantoprazole 40 Mg Tablet.Dr) 40 mg PO DAILY [facility] Stop: 08/09/24 08:59 Last Admin: 08/10/23 08:19 Dose: 40 mg Pilocarpine HCl (Pilocarpine 2% Op Soln 300 Drops/15 Ml Bottle) 1 drops EYE-LEFT BID [facility] Stop: 08/08/24 20:59 Last Admin: 08/10/23 08:14 Dose: 1 drops Polyethylene Glycol (Polyethylene Glycol 3350 17 Gm Powd.Pack) 17 gm PO DAILY [facility] Stop: 08/09/24 08:59 Last Admin: 08/10/23 08:19 Dose: 17 gm Potassium Chloride (Potassium Chloride Er 20 Meq Tab.Er.Prt) 20 meq PO BID [facility] Stop: 08/08/24 20:59 Last Admin: 08/10/23 08:20 Dose: 20 meq Prednisone (Prednisone 20 Mg Tablet) 60 mg PO DAILY [facility] Stop: 08/16/23 15:44 Last Admin: 08/10/23 08:20 Dose: 60 mg Sevelamer Carbonate (Sevelamer Carbonate 800 Mg Tablet) 800 mg PO TID.WITH.MEALS RYAN Stop: 08/09/24 07:59 Last Admin: 08/10/23 13:42 Dose: 800 mg Sodium Chloride (Sodium Chloride 0.9 % 10 Ml Syringe) 0 ml IV-PUSH PRN PRN PRN Reason: Flush Stop: 08/08/24 11:17 Last Admin: 08/10/23 06:17 Dose: 10 ml Sodium Chloride (Sodium Chloride 0.9 % 10 Ml Vial.Pf) 10 ml INJECTION Q6H PRN PRN Reason: Ativan dilution Stop: 08/08/24 11:39 Sodium Chloride (Sodium Chloride 0.9 % 10 Ml Vial.Pf) 10 ml INJECTION Q4H PRN PRN Reason: Ativan dilution Stop: 08/08/24 15:58 Timolol Maleate (Timolol Mal 0.5% Op Soln 100 Drops/5 Ml Bottle) 1 drops EYE- BOTH BID [facility]AN Stop: 08/08/24 20:59 Last Admin: 08/10/23 08:13 Dose: 1 drops Verapamil HCl (Verapamil Er.24hr 120 Mg Cap24h.Pel) 240 mg PO QAM [facility] Stop: 08/09/24 08:59 Last Admin: 08/10/23 08:19 Dose: 240 mg Vitamin B Complex/Vit C/Folic Acid (Folic Acid/Vit Bcomp,C 1 Tab Tablet) 1 tab PO DAILY [facility] Stop: 08/09/24 08:59 Last Admin: 08/10/23 08:19 Dose: 1 tab Exam Physical Exam Vital Signs: Temp Pulse Resp BP Pulse Ox O2 Del Method 98 F 80 18 194/142 H 97 Room Air 08/10/23 08:00 08/10/23 12:00 08/10/23 12:00 08/10/23 12:00 08/10/23 12:00 08/10/23 12:00 Results Labs 08/10/23 07:11 08/10/23 07:11 Labs: 08/10/23 07:11 BUN 35 H Creatinine 10.57 H D Radiology Impressions Impressions - last 24 hours: Any impression(s) listed above is documentation that was entered by the reading physician into a diagnostic report(s) for Luis Chong III. I have reviewed the report(s) and am incorporating any findings in the treatment plan of this patient where applicable. A&P - Nephrology Assessment/Plan (1) End-stage renal disease on peritoneal dialysis: Assessment/Problem Details: Patient follows with Dr. Winchester in [facility] for end-stage renal disease on CCPD. He has end-stage renal disease from nephrectomy and history of hypertensive nephropathy (2) Hypertensive chronic kidney disease with stage 1 through stage 4 chronic kidney disease, or unspecified chronic kidney disease: Assessment/Problem Details: Blood pressure has been elevated this morning. (3) Hyperkalemia: Assessment/Problem Details: Potassium slightly elevated 5.5. (4) Anemia of renal disease: Assessment/Problem Details: Hemoglobin is within target for end-stage renal disease patient (5) Acute cerebrovascular accident (CVA): Assessment/Problem Details: patient presented with slurred speech and right facial drop. 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 will indwell for 4 hours and hopefully we will be able to drain PD fluid.. -We will continue PD 1 exchange every 4 hours. We will continue alternating 1.5- 2.5 dextrose with 2L filling volume. -I discussed blood pressure issues with Dr. Rodríguez. Hydralazine will be increased to 3 times daily along with hydralazine IV every 4 hours as needed . If blood pressure remains significantly elevated then patient had to be moved to ICU for nicardipine drip. -Prednisone for possible Hutchinson's palsy as directed by neurology service -Continue same outpatient phosphorus binder and active vitamin D for hyperphosphatemia and hyperparathyroidism -I will start the patient on Lokelma 10 g 3 times daily for hyperkalemia. We will continue to monitor potassium level Documented By: Reece Rodriguez MD 08/10/23 141 Signed By: <Electronically signed by Reece Rodriguez MD> 08/10/[address] [facility] Work Phone: 1(151) 471-185210-19-2023 Progress note Author Jimenez Rodríguez [facility] August 10, 2023 3:05pmNote Date/TimeOct2022 3:05pmSharon [place] [phone] Hospitalist Progress Note Signed Patient: Luis Chong III MR#: [id number] : 1955 Acct:[id number] Age/Sex: 68 / M Adm Date: 3 Loc: 3T Room: [address] [place] [address] Type: ADM IN Attending Dr: Jimenez Rodríguez DO Copies to: ~ Date of Service: 08/10/2023 Subjective Subjective Narrative: Pt seen and examined. Still with right sided facial/eye droop today. Refuses MRI. Spoke with pt with neurology at bedside about options. Pt agreeable to attempt outpatient open MRI at a later date. Neurology believes symptoms to be a7th cranial nerve palsy, but cannot rule out intracranial causes until MRI performed. Continuing steroids. Pt BP very labile today with SBP 156 this AM, but went up to 220 this afternoon. Increased PO hydralazine to TID and increaseddose to 100mg per discussion withnephrology. If continues to be uncontrolled, will need to transfer pt to the ICU for cardene drip. No discharge today as nephrology attempting to get PD catheter functioning as well. Now meets inpatient criteria. Exam Physical Exam Vital Signs: Temp Pulse Resp BP Pulse Ox O2 Del Method 98 F 80 18 194/142 H 97 Room Air 08/10/23 08:00 08/10/23 12:00 08/10/23 12:00 08/10/23 12:00 08/10/23 12:00 08/10/23 12:00 Narrative: General: Awake and alert. Sitting in bed comfortably, dysarthria and R sided facial and R eye droop HEENT: Normocephalic, atraumatic, trachea midline Respiratory: good inspiratory effort, no wheeze, no rhonchi, no crackles Cardiovascular: RRR, normal S1 and S2 Abdominal: soft, obese, no tenderness, no rebound, no guarding, +BS Skin: warm, dry, no lesions or rashes MSK: no edema Neurologic: No focal deficits other than listed above Psych: appropriate affect Objective Lab Results 08/10/23 07:11 08/10/23 07:11 Meds Allergies and Active Meds Allergies cephalexin [From Keflex] Adverse Reaction (Verified 08/09/23 11:19) Itching Active Meds: Active Medications Generic Name Dose Route Start Last Admin Trade Name Freq PRN Reason Stop Dose Admin Acetaminophen 650 mg 08/09/23 15:07 Acetaminophen 325 Mg Tablet PO 08/08/24 15:06 Q6HR PRN Pain Scale 1 - 3 or fever Hydrocodone Bitart/Acetaminophen 1 tab 08/09/23 15:10 Hydrocodone/Acetaminophen 5-325 Mg Tablet PO Q6H PRN pain Allopurinol 100 mg 08/10/23 09:00 08/10/23 08:20 Allopurinol 100 Mg Tablet PO 08/09/24 08:59 100 mg QAM RYAN Administration Aspirin 81 mg 08/09/23 15:15 08/10/23 08:20 Aspirin 81 Mg Tablet.Dr PO 08/08/24 15:14 81 mg DAILY RYAN Administration Atorvastatin Calcium 80 mg 08/09/23 21:00 08/09/23 21:56 Atorvastatin 80 Mg Tablet PO 08/08/24 20:59 80 mg QPM RYAN Administration Brimonidine Tartrate 1 drops 08/09/23 21:00 08/10/23 08:13 Brimonidine 0.15% Op Soln 100 Drops/5 Ml Drops EYE-BOTH 08/08/24 20:59 1 drops BID RYAN Administration Calcitriol 0.5 mcg 08/10/23 09:00 08/10/23 08:20 Calcitriol 0.5 Mcg Capsule PO 08/09/24 08:59 0.5 mcg QAM RYAN Administration Furosemide 80 mg 08/09/23 21:00 08/10/23 08:19 Furosemide 80 Mg Tablet PO 08/08/24 20:59 80 mg BID RYAN Administration Gabapentin 300 mg 08/09/23 22:00 08/09/23 21:56 Gabapentin 300 Mg Capsule PO 08/08/24 21:59 300 mg QHS RYAN Administration Heparin Sodium (Porcine) 5,000 unit 08/10/23 06:00 08/10/23 13:44 Heparin 5,000 Unit/Ml Vial SUBCUT 08/09/24 05:59 Not Given Q8HR RYAN Hydralazine HCl 10 mg 08/09/23 19:53 08/10/23 06:16 Hydralazine 20 Mg/Ml Vial IV-PUSH 08/08/24 19:52 10 mg Q4H PRN Administration Hypertension Hydralazine HCl 100 mg 08/10/23 14:30 Hydralazine 50 Mg Tablet PO 08/09/24 14:29 TID RYAN Latanoprost 1 drops 08/09/23 22:00 08/09/23 21:42 Latanoprost 0.005% Op Soln 50 Drops/2.5 Ml Bottle EYE-LEFT 08/08/24 21:59 1drops HS RYAN Administration Lorazepam 1 mg 08/09/23 11:40 Lorazepam 2 Mg/Ml Vial IV-PUSH 02/05/24 11:39 Q6H PRN Agitation Magnesium Oxide 400 mg 08/10/23 09:00 08/10/23 08:19 Magnesium Oxide 400 Mg Tablet PO 08/09/24 08:59 400 mg DAILY RYAN Administration Metoprolol Tartrate 5 mg 08/09/23 19:53 Metoprolol Tartrate 5 Mg/5 Ml Vial IV-PUSH 08/08/24 19:52 Q4H PRN Blood Pressure Ondansetron HCl 4 mg 08/09/23 15:07 Ondansetron 4 Mg/2 Ml Vial IV-PUSH 08/08/24 15:06 Q8H PRN Nausea And Vomiting Pantoprazole Sodium 40 mg 08/10/23 09:00 08/10/23 08:19 Pantoprazole 40 Mg Tablet.Dr PO 08/09/24 08:59 40 mg DAILY RYAN Administration Pilocarpine HCl 1 drops 08/09/23 21:00 08/10/23 08:14 Pilocarpine 2% Op Soln 300 Drops/15 Ml Bottle EYE-LEFT 08/08/24 20:59 1 drops BID RYAN Administration Polyethylene Glycol 17 gm 08/10/23 09:00 08/10/23 08:19 Polyethylene Glycol 3350 17 Gm Powd.Pack PO 08/09/24 08:59 17 gm DAILY RYAN Administration Potassium Chloride 20 meq 08/09/23 21:00 08/10/23 08:20 Potassium Chloride Er 20 Meq Tab.Er.Prt PO 08/08/24 20:59 20 meq BID RYAN Administration Prednisone 60 mg 08/09/23 15:45 08/10/23 08:20 Prednisone 20 Mg Tablet PO 08/16/23 15:44 60 mg DAILY RYAN Administration Sevelamer Carbonate 800 mg 08/10/23 08:00 08/10/23 13:42 Sevelamer Carbonate 800 Mg Tablet PO 08/09/24 07:59 800 mg TID.WITH.MEALS RYAN Administration Sodium Chloride 0 ml 08/09/23 11:18 08/10/23 06:17 Sodium Chloride 0.9 % 10 Ml Syringe IV-PUSH 08/08/24 11:17 10 ml PRN PRN Administration Flush Sodium Chloride 10 ml 08/09/23 12:15 Sodium Chloride 0.9 % 10 Ml Vial.Pf INJECTION 08/08/24 11:39 Q6H PRN Ativan dilution Sodium Chloride 10 ml 08/09/23 15:59 Sodium Chloride 0.9 % 10 Ml Vial.Pf INJECTION 08/08/24 15:58 Q4H PRN Ativan dilution Sodium Zirconium Cyclosilicate 10 gm 08/10/23 22:00 Sodium Zirconium Cyclosilicate 10 Gm Powd.Pack PO 08/12/23 14:01 TID RYAN Timolol Maleate 1 drops 08/09/23 21:00 08/10/23 08:13 Timolol Mal 0.5% Op Soln 100 Drops/5 Ml Bottle EYE-BOTH 08/08/24 20:59 1 drops BID RYAN Administration Verapamil HCl 240 mg 08/10/23 09:00 08/10/23 08:19 Verapamil Er.24hr 120 Mg Cap24h.Pel PO 08/09/24 08:59 240 mg QAM RYAN Administration Vitamin B Complex/Vit C/Folic Acid 1 tab 08/10/23 09:00 08/10/23 08:19 Folic Acid/Vit Bcomp,C 1 Tab Tablet PO 08/09/24 08:59 1 tab DAILY RYAN Administration A&P - Hospitalist Assessment/Plan (1) Facial droop: (2) Dysarthria: (3) Hypertensive urgency: Plan # R facial/eye droop with slurred speech - woke up with symptoms. LWK 8pm on 08/08 - out of window for TNK. Possibly recurrence of Hutchinson's Palsy, but cannot rule out intracranial cause until MRI completed which pt is refusing - rule out CVA/TIA. CT/CTA unremarkable - MRI ordered but pt refuses. Discussed with neurology who is ok with outpatientopen MRI which can be scheduled at a later date - neurology consulted- will need 7 days of prednisone which was started - asa/statin - neurochecks - PT/OT, [employer] # HTN urgency- - BP 194/142 - resumed home regimen. Increased PO hydralazine from 50mg BID to 100mg TID - prn hydralazine - if continues to be uncontrolled, will need to move to the ICU for cardene drip # ESRD on PD with associated hyperkalemia - nephrology consulted to aid with dialysis - PD catheter not draining on 08/10. 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 BP elevated today and PD catheter not functioning, so no discharge today. Will monitor BP closely with adjusted BP regimen and if continues to be uncontrolled, will need to transfer to the ICU for cardene drip. Due to ESRD with hyperkalemia, dysphagia and HTN urgency, pt now meets inpatient criteria Time Spent With Patient (min): 45 Documented By: Jimenez Rodríguez DO 08/10/23 145 8 Signed By: <Electronically signed by Jimenez Rodríguez DO> 08/10/23 [address] [facility] Work Phone: 1(326) 851-706010-19-2023 Consult note Author Reece Rodriguez [facility] August 11, 2023 12:37pmNote Date/TimeOct2022 2:26[place] [address] Nephrology Consult Note Signed with Addenda Patient: Luis Chong III MR#: [id number] : 1955 Acct:[id number] Age/Sex: 68 / M Adm Date: 3 Loc: Room: [address] [place] [address] Type: ADM IN Attending Dr: Jimenez Rodríguez DO Copies to: MD Jimenez Ruiz DO Marc Naderer, MD~ ADDENDUM1 General: No acute distress Head :atraumatic normocephalic Eyes: PERRLA. Neck: no JVD no bruit. Heart: S1-S2. RRR Respiratory: Clear to auscultation. No wheezing. No crackles Abdomen: Soft, positive bowel sounds, slightly distended. No tenderness Neurology: Awake alert oriented x3. No focal deficits Extremity. No cyanosis. No edema Skin: No skin rash Addendum Documented By: Reece Rodriguez MD 08/11/23 1237 Addendum Signed By: <Electronically signed by Reece Rodriguez MD> 08/11/23 1237 Providers Consult Date: 08/10/23 Requesting Provider: Jimenez Rodríguez DO Primary Care Provider: Angel Luis Sanches MD HPI Reason for Consult: End-stage renal disease on PD History of Present Illness: 68-year-old -Nepalese male patient with a past medical history of end- stage renal disease onPD follows with Dr. Winchester in [facility], renal cell carcinoma status post nephrectomy, gout hypertension, anxiety, hyperlipidemia. Patient woke up yesterday with slurred speech and left facial drop. patient has history of Hutchinson's palsy . Patient presented to outside emergency room where he was transferred to our hospital since he has end-stage renal disease on peritoneal dialysis. Patient does 4 exchanges of PD fluid every night through cycler. He alternates 2.5% dextrose with 1.5 dextrose. CTA of neck and brain reveals no acute occlusion, dissection or critical stenosis. Patient was evaluated by neurology service this morning and started on prednisone for possible Hutchinson's palsy. Patientdeclined MRI due to claustrophobia Last night. The nurse has not been able to drain only inserted PD fluid. Patient uses IV heparin asneeded for drainage difficulty. Patient denied constipation. Noted high blood pressure this morning. Patient on hydralazine 50 mg twice daily, Lasix 80 mg twicedaily, verapamil 240 mg daily. Patient is frustrated about PD catheter ratio. He is asking to be discharged home. Family at bedside Review of Systems Review of Systems Review of systems: 12 system review is negative except what mentioned in the HPI [facility] Medical History Anemia Hutchinson's palsy Cluster headache Diverticulitis GERD (gastroesophageal reflux disease) Glaucoma Gout History of kidney cancer Hyperlipidemia Hypertension Kidney failure Surgical History History of hernia repair History of nephrectomy partial, tumor removed Family History (Updated 06/10/23 @ 00:13 by Ai Vasquez APRN) Sister COPD (chronic obstructive pulmonary disease) Brain cancer Sister COPD (chronic obstructive pulmonary disease) Mother CHF (congestive heart failure) Diabetes mellitus, type 2 Kidney failure Grandparent Stroke Social History Smoking Status: Never smoker Substance Use Type: None Meds Medications & Allergies Allergies cephalexin [From Keflex] Adverse Reaction (Verified 08/09/23 11:19) Itching Home Medications [id number]-axswvttrhjnmh-htoqklaw 50 mg-325 mg-40 mg capsule 1 cap PO Q4H PRN Pain 07/14/18 [History Confirmed 08/09/23] omeprazole 20 mg capsule,delayed release 40 mg PO QAM 07/14/18 [History Confirmed 08/09/23] verapamil 240 mg 24 hr capsule,extended release 240 mg PO QAM 07/14/18 [History Confirmed 08/09/23] allopurinol 100 mg tablet 100 mg PO QAM 09/27/22 [History Confirmed 08/09/23] atorvastatin 80 mg tablet 80 mg PO QHS 09/27/22 [History Confirmed 08/09/23] brimonidine 0.2 % eye drops 1 drp Eye-Both BID 09/27/22 [History Confirmed 08/09/23] calcitriol 0.5 mcg capsule 0.5 mcg PO QAM 09/27/22 [History Confirmed 08/09/23] dorzolamide 2 % eye drops 1 drp Eye-Both BID 09/27/22 [History Confirmed 08/09/23] furosemide 40 mg tablet 80 mg PO BID 09/27/22 [History Confirmed 08/09/23] gabapentin 300 mg capsule 300 mg PO QHS 09/27/22 [History Confirmed 08/09/23] hydralazine 50 mg tablet 50 mg PO BID 09/27/22 [History Confirmed 08/09/23] timolol maleate 0.5 % eye drops 1 drp Eye-Both BID 09/27/22 [History Confirmed 08/09/23] latanoprost 0.005 % eye drops 1 drp Eye-Left HS 08/09/23 [History Confirmed 08/09/23] magnesium oxide 400 mg (241.3 mg magnesium) tablet 400 mg PO DAILY 08/09/23 [History Confirmed 08/09/23] pilocarpine HCl 2 % eye drops 1 drp Eye-Left BID 08/09/23 [History Confirmed 08/09/23] polyethylene glycol 3350 17 gram/dose oral powder 17 g PO DAILY 08/09/23 [History Confirmed 08/09/23] potassium chloride 20 mEq tablet,extended release(part/cryst) (Klor-Con M) 20 meq PO BID 08/09/23 [History Confirmed 08/09/23] sevelamer carbonate 800 mg tablet 800 mg PO TIDWMEAL 08/09/23 [History Confirmed 08/09/23] vitamin B complex-vitamin C 100 mg-folic acid 1 mg tablet (Dialyvite) 1 tab PO DAILY 08/09/23 [History Confirmed 08/09/23] prednisone 20 mg tablet 60 mg PO DAILY 7 days #21 tabs 08/10/23 [Rx] Active Medications: Active Medications Acetaminophen (Acetaminophen 325 Mg Tablet) 650 mg PO Q6HR PRN PRN Reason: Pain Scale 1 - 3 or fever Stop: 08/08/24 15:06 Hydrocodone Bitart/Acetaminophen (Hydrocodone/Acetaminophen 5-325 Mg Tablet) 1 tab PO Q6H PRN PRN Reason: pain Allopurinol (Allopurinol 100 Mg Tablet) 100 mg PO QAM RYAN Stop: 08/09/24 08:59 Last Admin: 08/10/23 08:20 Dose: 100 mg Aspirin (Aspirin 81 Mg Tablet.) 81 mg PO DAILY RYAN Stop: 08/08/24 15:14 Last Admin: 08/10/23 08:20 Dose: 81 mg Atorvastatin Calcium (Atorvastatin 80 Mg Tablet) 80 mg PO QPM RYAN Stop: 08/08/24 20:59 Last Admin: 08/09/23 21:56 Dose: 80 mg Brimonidine Tartrate (Brimonidine 0.15% Op Soln 100 Drops/5 Ml Drops) 1 drops EYE-BOTH BID RYAN Stop: 08/08/24 20:59 Last Admin: 08/10/23 08:13 Dose: 1 drops Calcitriol (Calcitriol 0.5 Mcg Capsule) 0.5 mcg PO QAM RYAN Stop: 08/09/24 08:59 Last Admin: 08/10/23 08:20 Dose: 0.5 mcg Furosemide (Furosemide 80 Mg Tablet) 80 mg PO BID RYAN Stop: 08/08/24 20:59 Last Admin: 08/10/23 08:19 Dose: 80 mg Gabapentin (Gabapentin 300 Mg Capsule) 300 mg PO QHS RYAN Stop: 08/08/24 21:59 Last Admin: 08/09/23 21:56 Dose: 300 mg Heparin Sodium (Porcine) (Heparin 5,000 Unit/Ml Vial) 5,000 unit SUBCUT Q8HR RYAN Stop: 08/09/24 05:59 Last Admin: 08/10/23 13:44 Dose: Not Given Hydralazine HCl (Hydralazine 20 Mg/Ml Vial) 10 mg IV-PUSH Q4H PRN PRN Reason: Hypertension Stop: 08/08/24 19:52 Last Admin: 08/10/23 06:16 Dose: 10 mg Hydralazine HCl (Hydralazine 50 Mg Tablet) 50 mg PO TID RYAN Stop: 08/09/24 13:59 Latanoprost (Latanoprost 0.005% Op Soln 50 Drops/2.5 Ml Bottle) 1 drops EYE-LEFT HS RYAN Stop: 08/08/24 21:59 Last Admin: 08/09/23 21:42 Dose: 1 drops Lorazepam (Lorazepam 2 Mg/Ml Vial) 1 mg IV-PUSH Q6H PRN PRN Reason: Agitation Stop: 02/05/24 11:39 Magnesium Oxide (Magnesium Oxide 400 Mg Tablet) 400 mg PO DAILY RYAN Stop: 08/09/24 08:59 Last Admin: 08/10/23 08:19 Dose: 400 mg Metoprolol Tartrate (Metoprolol Tartrate 5 Mg/5 Ml Vial) 5 mg IV-PUSH Q4H PRN PRN Reason: Blood Pressure Stop: 08/08/24 19:52 Ondansetron HCl (Ondansetron 4 Mg/2 Ml Vial) 4 mg IV-PUSH Q8H PRN PRN Reason: Nausea And Vomiting Stop: 08/08/24 15:06 Pantoprazole Sodium (Pantoprazole 40 Mg Tablet.Dr) 40 mg PO DAILY RYAN Stop: 08/09/24 08:59 Last Admin: 08/10/23 08:19 Dose: 40 mg Pilocarpine HCl (Pilocarpine 2% Op Soln 300 Drops/15 Ml Bottle) 1 drops EYE-LEFT BID RYAN Stop: 08/08/24 20:59 Last Admin: 08/10/23 08:14 Dose: 1 drops Polyethylene Glycol (Polyethylene Glycol 3350 17 Gm Powd.Pack) 17 gm PO DAILY RYAN Stop: 08/09/24 08:59 Last Admin: 08/10/23 08:19 Dose: 17 gm Potassium Chloride (Potassium Chloride Er 20 Meq Tab.Er.Prt) 20 meq PO BID RYAN Stop: 08/08/24 20:59 Last Admin: 08/10/23 08:20 Dose: 20 meq Prednisone (Prednisone 20 Mg Tablet) 60 mg PO DAILY RYAN Stop: 08/16/23 15:44 Last Admin: 08/10/23 08:20 Dose: 60 mg Sevelamer Carbonate (Sevelamer Carbonate 800 Mg Tablet) 800 mg PO TID.WITH.MEALS RYAN Stop: 08/09/24 07:59 Last Admin: 08/10/23 13:42 Dose: 800 mg Sodium Chloride (Sodium Chloride 0.9 % 10 Ml Syringe) 0 ml IV-PUSH PRN PRN PRN Reason: Flush Stop: 08/08/24 11:17 Last Admin: 08/10/23 06:17 Dose: 10 ml Sodium Chloride (Sodium Chloride 0.9 % 10 Ml Vial.Pf) 10 ml INJECTION Q6H PRN PRN Reason: Ativan dilution Stop: 08/08/24 11:39 Sodium Chloride (Sodium Chloride 0.9 % 10 Ml Vial.Pf) 10 ml INJECTION Q4H PRN PRN Reason: Ativan dilution Stop: 08/08/24 15:58 Timolol Maleate (Timolol Mal 0.5% Op Soln 100 Drops/5 Ml Bottle) 1 drops EYE- BOTH BID YRAN Stop: 08/08/24 20:59 Last Admin: 08/10/23 08:13 Dose: 1 drops Verapamil HCl (Verapamil Er.24hr 120 Mg Cap24h.Pel) 240 mg PO QAM RYAN Stop: 08/09/24 08:59 Last Admin: 08/10/23 08:19 Dose: 240 mg Vitamin B Complex/Vit C/Folic Acid (Folic Acid/Vit Bcomp,C 1 Tab Tablet) 1 tab PO DAILY RYAN Stop: 08/09/24 08:59 Last Admin: 08/10/23 08:19 Dose: 1 tab Exam Physical Exam Vital Signs: Temp Pulse Resp BP Pulse Ox O2 Del Method 98 F 80 18 194/142 H 97 Room Air 08/10/23 08:00 08/10/23 12:00 08/10/23 12:00 08/10/23 12:00 08/10/23 12:00 08/10/23 12:00 Results Labs 08/10/23 07:11 08/10/23 07:11 Labs: 08/10/23 07:11 BUN 35 H Creatinine 10.57 H D Radiology Impressions Impressions - last 24 hours: Any impression(s) listed above is documentation that was entered by the reading physician into a diagnostic report(s) for Luis Chong III. I have reviewed the report(s) and am incorporating any findings in the treatment plan of this patient where applicable. A&P - Nephrology Assessment/Plan (1) End-stage renal disease on peritoneal dialysis: Assessment/Problem Details: Patient follows with Dr. Winchester in [facility] for end-stage renal disease on CCPD. He has end-stage renal disease from nephrectomy and history of hypertensive nephropathy (2) Hypertensive chronic kidney disease with stage 1 through stage 4 chronic kidney disease, or unspecified chronic kidney disease: Assessment/Problem Details: Blood pressure has been elevated this morning. (3) Hyperkalemia: Assessment/Problem Details: Potassium slightly elevated 5.5. (4) Anemia of renal disease: Assessment/Problem Details: Hemoglobin is within target for end-stage renal disease patient (5) Acute cerebrovascular accident (CVA): Assessment/Problem Details: patient presented with slurred speech and right facial drop. 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 will indwell for 4 hours and hopefully we will be able to drain PD fluid.. -We will continue PD 1 exchange every 4 hours. We will continue alternating 1.5- 2.5 dextrose with 2L filling volume. -I discussed blood pressure issues with Dr. Rodríguez. Hydralazine will be increased to 3 times daily along with hydralazine IV every 4 hours as needed . If blood pressure remains significantly elevated then patient had to be moved to ICU for nicardipine drip. -Prednisone for possible Hutchinson's palsy as directed by neurology service -Continue same outpatient phosphorus binder and active vitamin D for hyperphosphatemia and hyperparathyroidism -I will start the patient on Lokelma 10 g 3 times daily for hyperkalemia. We will continue to monitor potassium level Documented By: Reece Rodriguez MD 08/10/231412 Signed By: <Electronically signed by Reece Rodriguez MD> 08/10/[address] [facility] Work Phone: 1(798) 390-157110-19-2023 Progress note Author Juan Carlos Lopes [facility] August 10, 2023 2:03pmNote Date/TimeOct2022 2:03pm[place] [address] Neurology Progress Note Signed Patient: Luis Chong III MR#: [id number] : 1955 Acct:[id number] Age/Sex: 68 / M Adm Date: 3 Loc: Room: [address] [place] [address] Type: ADM INOo Attending Dr: Jimenez Rodríguez DO Copies to: ~ Date of Service: 08/10/2023 Exam Physical Exam Vital Signs: Temp Pulse Resp BP Pulse Ox O2 Del Method 98 F 80 18 194/142 H 97 Room Air 08/10/23 08:00 08/10/23 12:00 08/10/23 12:00 08/10/23 12:00 08/10/23 12:00 08/10/23 12:00 Objective Vital Signs Vital Signs: Vital Signs - 24 hr 08/09/23 16:15 08/09/23 17:15 08/09/23 19:45 Temperature 98 F 98.0 F Pulse Rate 79 Pulse Rate [Monitor] 79 71 Respiratory Rate 18 18 18 Blood Pressure 206/121 H Blood Pressure [Right Arm] 186/98 H 192/113 H 02 Sat by Pulse Oximetry 98 98 98 Oxygen Delivery Method Room Air Room Air Room Air 08/09/23 19:59 08/09/23 21:44 08/09/23 23:27 Temperature Pulse Rate 81 79 Pulse Rate [Monitor] Respiratory Rate 18 Blood Pressure 173/96 H 175/103 H Blood Pressure [Right Arm] 02 Sat by Pulse Oximetry 98 Oxygen Delivery Method Room Air Room Air 08/10/23 06:00 08/10/23 08:00 08/10/23 08:00 Temperature 98 F Pulse Rate 91 H 89 Pulse Rate [Monitor] Respiratory Rate 18 18 Blood Pressure 182/110 H 156/94 H Blood Pressure [Right Arm] 02 Sat by Pulse Oximetry 98 97 Oxygen Delivery Method Room Air Room Air Room Air 08/10/23 12:00 Temperature Pulse Rate 80 Pulse Rate [Monitor] Respiratory Rate 18 Blood Pressure 194/142 H Blood Pressure [Right Arm] 02 Sat by Pulse Oximetry 97 Oxygen Delivery Method Room Air Labs 08/10/23 07:11 08/10/23 07:11 Assessment/Plan (1) Facial droop: Assessment/Problem Details: CONSULT REASON: Facial droop SUBJECTIVE: He has been severely hypertensive, systolically and diastolically. There are some issues with the peritoneal dialysis. His right eye is irritated and bothering him. The right facial weakness is aboutthe same, might be slightly more prominent. He is strongly refusing the MRI study. Refuses to even make anattempt. Multiple family members in the room trying to talk him into the MRI and staying for additional medical care. No new deficits reported today. Nothing to add to review of systems. EXAMINATION: Well-kempt. No distress. No deformities or trauma. Normal spinal curvature. Limbs seem well-perfused. No significant edema. Normal work of breathing. Visualized skin is generally intact and without lesions. Affect normal. Patient is alert and generally oriented. Attention normal. Mild dysarthria; speech remains intelligible. Right lens opacified, no light perception. Right eye scleral injection especially inferiorly. Right eye laterally deviated (exotropia), likely chronic to some extent. Incomplete eyelid closure bilaterally but especially on the right, and right eyelid closure more delayed. Mild exophthalmos. Facial sensation is intact. Hearing seems equal bilaterally. Right-sided facial weakness in a lower motor neuron pattern with partial paralysis of his right forehead. Tongue is midline. Muscle bulk, tone, and strength in limbs are normal. No tremors. Reflexes normal throughout. No pathologic reflexes. Light touch is normal. Vibratory sensation is normal. Normal rapidly alternating movements. No limb dysmetria with [id number]-[id number]. DATA REVIEW: -CT head without any acute findings -CTA head and neck without any occlusion, stenosis, dissection, did make mentionof 7 mm right thyroid nodule ASSESSMENT: I still suspect he has an isolated right seventh cranial neuropathy, most likelyidiopathic 7th cranial nerve palsy ( Hutchinson's ). If this is Hutchinson's palsy, his House-Brackman score is probably III. He has reported history of being diagnosed with Hutchinson's palsy, probably ipsilaterally, in the past. 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 My suspicion for acute cerebrovascular disease is fairly low but he does have risk factors of end-stage renal disease, hypertension, hyperlipidemia. PLAN: 1. He declines any attempts at MR imaging. There will be consideration given for an open MRI in theoutpatient setting after discharge. 2. Continue the prednisone 60 mg daily for 7 days, today is day 2 3. No acyclovir or valacyclovir needed due to concerns of the potential to worsen his renal dysfunction and his House-Brackmann score is less than IV. 4. Lacri-Lube eye ointment for portions of eyes that remain exposed despite eyelid closure Code(s): R29.810 - Facial weakness Status: Acute Documented By: Juan Carlos Lopes DO 08/10/23 5378 Signed By: <Electronically signed by Juan Carlos Lopes DO> 08/10/[address] [facility] Work Phone: 1(594) 637-513010-18-2023 History and physical note Author Jimenez Rodríguez [facility] August 09, 2023 4:08pmNote Date/TimeOct2022 4:01pm[place] [address] Hospitalist H&P Signed Patient: Luis Chong III MR#: [id number] : 1955 Acct:[id number] Age/Sex: 68 / M Adm Date: 3 Loc: ER Room: Type: [facility] ER Attending Dr: Copies to: MD Jimenez Florence DO Marc Naderer, MD~ HPI DATE OF EXAMINATION: 08/09/23 CHIEF COMPLAINT: slurred speech, facial droop HISTORY OF PRESENT ILLNESS: Pt is a 68 y/o M with PMHx of HTN/HLD, ESRD on daily PD who presents today with slurred speech and R sided facial droop which he awoke with this AM. Last well known was around 8pm last night. Pt states he has had previous facial droop whenhe had Hutchinson's Palsy, but at that time was not associated wtih slurred speech so he came to the ED where workup was largely unremarkable including CT/CTA head/neck. Upon exam, pt with obvious slurred speech and R sided facial droop. Pt states he has claustrophobia and does not want an MRI, despite telling him wehave medications that can calm him down. Pt agreeable to admission for CVA workup. MRI ordered along with ativan for claustrophobia and neurology and nephrology consulted. Review of Systems Review of Systems All other systems reviewed & are negative unless noted below or in HPI [facility] Medical History (Updated 08/09/23 @ 16:05 by Jimenez Rodríguez DO) Anemia Hutchinson's palsy Cluster headache Diverticulitis GERD (gastroesophageal reflux disease) Glaucoma Gout History of kidney cancer Hyperlipidemia Hypertension Kidney failure Surgical History History of hernia repair History of nephrectomy partial, tumor removed Family History (Updated 06/10/23 @ 00:13 by Ai Vasquez APRN) Sister COPD (chronic obstructive pulmonary disease) Brain cancer Sister COPD (chronic obstructive pulmonary disease) Mother CHF (congestive heart failure) Diabetes mellitus, type 2 Kidney failure Grandparent Stroke Social History Smoking Status: Never smoker Substance Use Type: None Meds Medications and Allergies Allergies cephalexin [From Keflex] Adverse Reaction (Verified 08/09/23 11:19) Itching Home Medications gghkrbaxcy-malyicrtrqzwb-emcdeecb 50 mg-325 mg-40 mg capsule 1 cap PO Q4H PRN Pain 07/14/18 [History Confirmed 09/29/22] omeprazole 20 mg capsule,delayed release 20 mg PO QAM 07/14/18 [History Confirmed 06/09/23] verapamil 240 mg 24 hr capsule,extended release 240 mg PO QAM 07/14/18 [History Confirmed 06/09/23] allopurinol 100 mg tablet 100 mg PO QAM 09/27/22 [History Confirmed 06/09/23] atorvastatin 80 mg tablet 80 mg PO QHS 09/27/22 [History Confirmed 06/09/23] brimonidine 0.2 % eye drops 1 drp Eye-Both BID 09/27/22 [History Confirmed 06/09/23] calcitriol 0.5 mcg capsule 0.5 mcg PO QAM 09/27/22 [History Confirmed 06/09/23] dorzolamide 2 % eye drops 1 drp Eye-Both BID 09/27/22 [History Confirmed 06/09/23] ferrous sulfate 325 mg (65 mg iron) tablet 325 mg PO QAM 09/27/22 [History Confirmed 06/09/23] fluticasone propionate 50 mcg/actuation nasal spray,suspension 1 spray intranasal QAM 09/27/22 [History Confirmed 09/29/22] furosemide 40 mg tablet 80 mg PO BID 09/27/22 [History Confirmed 06/09/23] gabapentin 300 mg capsule 300 mg PO QHS 09/27/22 [History Confirmed 06/09/23] hydralazine 50 mg tablet 50 mg PO BID 09/27/22 [History Confirmed 06/09/23] sodium bicarbonate 650 mg tablet 650 mg PO TID 09/27/22 [History Confirmed 09/29/22] timolol maleate 0.5 % eye drops 1 drp Eye-Both BID 09/27/22 [History Confirmed 06/09/23] hydrocodone 5 mg-acetaminophen 325 mg tablet 1 tab PO Q6H PRN pain 7 days #28 tabs 09/29/22 [Rx] Exam Physical Exam Vital Signs: Temp Pulse Resp BP Pulse Ox O2 Del Method 98.6 F 78 18 175/94 H 96 Room Air 08/09/23 11:18 08/09/23 13:06 08/09/23 13:06 08/09/23 13:06 08/09/23 13:06 08/09/23 13:06 Narrative: General: Awake and alert. Lying in bed comfortably, dysarthria and R sided facial and R eye droop HEENT: Normocephalic, atraumatic, trachea midline Respiratory: good inspiratory effort, no wheeze, no rhonchi, no crackles Cardiovascular: RRR, normal S1 and S2 Abdominal: soft, obese, no tenderness, no rebound, no guarding, +BS Skin: warm, dry, no lesions or rashes MSK: no edema Neurologic: No focal deficits other than listed above Psych: appropriate affect Results Lab Results Labs: Laboratory Last Values Corrected WBC 7.8 X10E3/uL (4.1-10.5) 08/09/23 11:31 Uncorrected WBC Count 7.8 x10E3/uL (4.1-10.5) 08/09/23 11:31 RBC 3.85 X10E6/uL (3.90-5.60) L 08/09/23 11:31 Hgb 11.3 g/dL (13.0-17.0) L 08/09/23 11:31 Hct 34.8 % (38.8-50.0) L 08/09/23 11:31 MCV 90.5 fl (83.5-101) 08/09/23 11:31 MCH 29.4 pg (27.5-35.2) 08/09/23 11:31 MCHC 32.5 g/dL (32.5-35.6) 08/09/23 11:31 RDW 18.0 % (12.0-14.8) H 08/09/23 11:31 Plt Count 214 x10E3/uL (150-450) 08/09/23 11:31 MPV 7.7 fl (6.6-10.1) 08/09/23 11:31 Neut % (Auto) 79.1 % (.) 08/09/23 11:31 Lymph % (Auto) 11.1 % (.) 08/09/23 11:31 [place] % (Auto) 6.6 % (.) 08/09/23 11:31 Eos % (Auto) 2.3 % (.) 08/09/23 11:31 Baso % (Auto) 0.9 % (.) 08/09/23 11:31 Nucleat RBC Rel Count 0.0 /100 WBC (0-0.5) 08/09/23 11:31 Neut # (Auto) 6.2 x10E3/uL (1.8-7.7) 08/09/23 11:31 Lymph # (Auto) 0.9 x10E3/uL (1.00-4.8) L 08/09/23 11:31 [place] # (Auto) 0.5 x10E3/uL (0.0-0.8) 08/09/23 11:31 Eos # (Auto) 0.2 x10E3/uL (0.0-0.45) 08/09/23 11:31 Baso # (Auto) 0.1 x10E3/uL (0.0-0.2) 08/09/23 11:31 Monocyte Dist Width 17.11 % (0.00-20.00) 08/09/23 11:31 PT 12.6 Seconds (9.0-12.9) 08/09/23 11:31 INR 1.1 08/09/23 11:31 APTT 30.7 Seconds (25.1-36.5) 08/09/23 11:31 PHA Creatinine Clear 9.80 08/09/23 11:31 Sodium 139 mmol/L (136-145) 08/09/23 11:31 Potassium 4.7 mmol/L (3.5-5.1) 08/09/23 11:31 Chloride 103 mmol/L (98-107) 08/09/23 11:31 Carbon Dioxide 27.6 mmol/L (21.0-31.0) 08/09/23 11:31 Anion Gap 13.1 mEq/L (6.0-15.0) 08/09/23 11:31 BUN 31 mg/dL (7-25) H 08/09/23 11:31 Creatinine 10.07 mg/dL (0.70-1.30) H 08/09/23 11:31 POC Creatinine 10.9 mg/dl (0.6-1.3) H 08/09/23 11:34 Est GFR (CKD-EPI) 5.066 mL/Min 08/09/23 11:31 Glucose 115 mg/dL (70-100) H 08/09/23 11:31 POC Glucose 107 mg/dl 08/09/23 11:30 Calcium 9.7 mg/dL (8.6-10.3) 08/09/23 11:31 Total Creatine Kinase 38 U/L (30-223) 08/09/23 11:31 Troponin I High Sens 26.2 pg/mL (0.0-20.0) H 08/09/23 11:31 Urine Color Yellow (Yellow) 08/09/23 13:00 Urine Appearance Clear (Clear) 08/09/23 13:00 Urine pH 8.5 (5.0-9.0) 08/09/23 13:00 Ur Specific [place] 1.010 (1.001-1.030) 08/09/23 13:00 Urine Protein 30 mg/dL (Negative) H 08/09/23 13:00 Urine Glucose (UA) Normal mg/dL (Normal) 08/09/23 13:00 Urine Ketones Negative (Negative) 08/09/23 13:00 Urine Occult Blood Negative (Negative) 08/09/23 13:00 Urine Nitrite Negative (Negative) 08/09/23 13:00 Urine Bilirubin Negative (Negative) 08/09/23 13:00 Urine Urobilinogen Normal mg/dL (Normal) 08/09/23 13:00 Ur Leukocyte Esterase Negative (Negative) 08/09/23 13:00 Urine RBC None seen /HPF (0-4) 08/09/23 13:00 Urine WBC 0-1 /HPF (0-4) 08/09/23 13:00 Ur Squamous Epith Cells None seen /HPF (0-2) 08/09/23 13:00 Urine Bacteria None seen (None Seen) 08/09/23 13:00 Hyaline Casts None seen /LPF (0-8) 08/09/23 13:00 Assessment & Plan Assessment/Plan (1) Facial droop: (2) Dysarthria: (3) Hypertensive urgency: Plan # R facial/eye droop with slurred speech - woke up with symptoms. LWK 8pm on 08/08 - out of window for TNK. Lower suspicion of Hutchinson's Palsy given dysarthria and elevated BP on arrival - rule out CVA/TIA. 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 MRI ordered, but pt may refuse. Cont asa/statin. Neurology and nephrology consulted. Pt/OT IP vs OBS Justification Based on differential dx, clinical care plan, and risk of adverse events, if untreated, in my clinical judgement this patient requires an acute care setting as: OBSERVATION because of an expectation of an under 2 midnight stay. Estimated length of stay (# of days): 2 Time Spent With Patient (min): 45 Documented By: Jimenez Rodríguez DO 08/09/23 160 0 Signed By: <Electronically signed by Jimenez Rodríguez DO> 08/09/[address] 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: Juan Carlos Lopes DO [facility] Medical History (Updated 08/09/23 @ 15:17 by Juan Carlos Lopes DO) Anemia Hutchinson's palsy Cluster headache Diverticulitis GERD (gastroesophageal reflux disease) Glaucoma Gout History of kidney cancer Hyperlipidemia Hypertension Kidney failure Surgical History History of hernia repair History of nephrectomy partial, tumor removed Family History (Updated 06/10/23 @ 00:13 by Ai Vasquez APRN) Sister COPD (chronic obstructive pulmonary disease) Brain cancer Sister COPD (chronic obstructive pulmonary disease) Mother CHF (congestive heart failure) Diabetes mellitus, type 2 Kidney failure Grandparent Stroke Social History Smoking Status: Never smoker Substance Use Type: None Meds Medications and Allergies Allergies cephalexin [From Keflex] Adverse Reaction (Verified 08/09/23 11:19) Itching Home Medications ggmadgooov-rhvoibxhllzvq-smixdevb 50 mg-325 mg-40 mg capsule 1 cap PO Q4H PRN Pain 07/14/18 [History Confirmed 09/29/22] omeprazole 20 mg capsule,delayed release 20 mg PO QAM 07/14/18 [History Confirmed 06/09/23] verapamil 240 mg 24 hr capsule,extended release 240 mg PO QAM 07/14/18 [History Confirmed 06/09/23] allopurinol 100 mg tablet 100 mg PO QAM 09/27/22 [History Confirmed 06/09/23] atorvastatin 80 mg tablet 80 mg PO QHS 09/27/22 [History Confirmed 06/09/23] brimonidine 0.2 % eye drops 1 drp Eye-Both BID 09/27/22 [History Confirmed 06/09/23] calcitriol 0.5 mcg capsule 0.5 mcg PO QAM 09/27/22 [History Confirmed 06/09/23] dorzolamide 2 % eye drops 1 drp Eye-Both BID 09/27/22 [History Confirmed 06/09/23] ferrous sulfate 325 mg (65 mg iron) tablet 325 mg PO QAM 09/27/22 [History Confirmed 06/09/23] fluticasone propionate 50 mcg/actuation nasal spray,suspension 1 spray intranasal QAM 09/27/22 [History Confirmed 09/29/22] furosemide 40 mg tablet 80 mg PO BID 09/27/22 [History Confirmed 06/09/23] gabapentin 300 mg capsule 300 mg PO QHS 09/27/22 [History Confirmed 06/09/23] hydralazine 50 mg tablet 50 mg PO BID 09/27/22 [History Confirmed 06/09/23] sodium bicarbonate 650 mg tablet 650 mg PO TID 09/27/22 [History Confirmed 09/29/22] timolol maleate 0.5 % eye drops 1 drp Eye-Both BID 09/27/22 [History Confirmed 06/09/23] hydrocodone 5 mg-acetaminophen 325 mg tablet 1 tab PO Q6H PRN pain 7 days #28 tabs 09/29/22 [Rx] Exam Physical Exam Vital Signs: Temp Pulse Resp BP Pulse Ox O2 Del Method 98.6 F 78 18 175/94 H 96 Room Air 08/09/23 11:18 08/09/23 13:06 08/09/23 13:06 08/09/23 13:06 08/09/23 13:06 08/09/23 13:06 Results Laboratory Findings 08/09/23 11:31 08/09/23 11:31 Diagnostic Findings Imaging/Impressions: ITS Impressions Head CTA 08/09/23 00:00 IMPRESSION: No occlusion, critical stenosis or dissection of the extracranial or intracranial circulation. Impression dictated by: Shahbaz Owen M.D.08/09/2023 12:09 PM Dictation Location: [place] [address] Chest X-Ray 08/09/23 11:24 IMPRESSION: No acute process. Impression dictated by: Shahbaz Owen M.D.08/09/2023 12:11 PM Dictation Location: [place] [address] 08/09/23 11:24 IMPRESSION: MINOR MICROVASCULAR DISEASE. NO DEFINITE ACUTE INTRACRANIAL ABNORMALITY. FOLLOW-UP IS RECOMMENDED, SYMPTOMS WARRANT. COMMENT: FINDINGS WERE DISCUSSED WITH DR. VASQUEZ AT 1153 HOURS Impression dictated by: Jessica Robison M.D.08/09/2023 11:58 AM Dictation Location: [place] [address] Assessment/Plan (1) Facial droop: Assessment/Problem Details: CONSULT REASON: Facial droop HPI: 68-year-old man with history of end-stage renal disease on peritoneal dialysis, hypertension, hyperlipidemia, among others. Of note, he says he has history of Hutchinson's palsy many years ago but cannotquite remember which side it was on. He had a pretty good recovery after that. When he woke up thismorning he had weakness on the right side of his face with associated slurred speech. 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 That eye is laterally deviated but he and his do not know if it is worse than usual. He is reluctant to provide much history. He is not enthusiastic about getting further care. He says he will not undergo an MRI. Has not noticed any hearing differences.No taste differences. Arms and legs seem okay. EXAMINATION: Well-kempt. No distress. No deformities or trauma. Normal spinal curvature. Limbs seem well-perfused. No significant edema. Normal work of breathing. Visualized skin is generally intact and without lesions. Affect normal. Patient is alert and generally oriented. Attention normal. Mild dysarthria; speech remains intelligible. Right lens opacified, no light perception. Right eye scleral injection especially inferiorly. Right eye laterally deviated (exotropia), likely chronic to some extent. Incomplete eyelid closure bilaterally, right eyelid closure more delayed. Mild exophthalmos. Facial sensat ion is intact. Hearing seems equal bilaterally. Right-sided facial weakness in a lower motor neuronpattern with partial paralysis of his right forehead. Tongue is midline. Muscle bulk, tone, and strength in limbs are normal. No tremors. Reflexes normal throughout. No pathologic reflexes. Light touch is normal. Vibratory sensation is normal. Normal rapidly alternating movements. No limb dysmetriawith ujpryv-jdez-ijiccf testing. 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 If this is Hutchinson's palsy, his House-Brackman score is probably III. He has reported history of being diagnosed with Hutchinson's palsy, probably ipsilaterally, in the past. He is blindbecause of a cataract issue in the right eye and that blind right eye is laterally deviated but I do not think that represents any other cranial nerve dysfunction. My suspicion for cerebrovascular disease is fairly low but he does have risk factors of end-stage renal disease, hypertension, hyperlipidemia. PLAN: 1. Given the recurrence of the 7th cranial nerve issue and the confounding right exophthalmos I am in favor of MR imaging, which the patient is saying he will not be able to do because of claustrophobia 2. Start prednisone 60 mg daily for 7 days 3. No acyclovir or valacyclovir needed due to concerns of the potential to worsen his renal dysfunction and his House-Brackmann score is less than IV. 4. Lacri-Lube eye ointment for portions of eyes that remain exposed despite eyelid closure Code(s): R29.810 - Facial weakness Status: Acute Documented By: Juan Carlos Lopes DO 08/09/23 1514 Signed By: <Electronically signed by Juan Carlos Lopes DO> 08/09/23 1545 [facility] Work Phone: [phone]) 648-193008-30-2023 NoteReason For Visit Indication: Syncope Procedure Patient underwent 30-day event monitor. Baseline rhythm is normal sinus rhythm. The patient activated the monitor multiple occasion but no symptoms were attached. All rhythm strips demonstrate sinus rhythm occasional PVCs were noted no tacky or bradycardia arrhythmia. Conclusion 1. Normal sinus rhythm 2. Occasional PVCs 3. No tachycardia or bradycardia arrhythmia 4. Patient activated the monitor but no symptoms attachable rhythm during those episodes was sinus with PVCs Event Monitor: LUIS is here for the application of a 30 day event monitor in office., Diagnosis: syncope Ordering Physician: Dr. Clau Sanchez MD Enrollment sent to: [employer] Monitor number [id number] applied. Holter monitor printed and placed on Dr. Clau Sanchez MD desk to dictate. Diagnosis/Problems Assessed Syncope (780.2) (R55) Future Appointments Date/TimeProviderSpecialtySite 08/14/2023 02:30 Clau Mackey, [id number] [facility] 2 Kenneth 250 DO Signatures Electronically signed by : Mili Cardoso L.P.N.; Jun 21 2023 8:58AM EST (Author) Electronically signed by : Clau Sanchez MD; Aug 01 2023 5:01PM EST (Author)[employer] [id number] Consult note Author Reece Rodriguez [facility] June 10, 2023 12:48pmNote Date/TimeMj 2022 12:[place]pm[place] [id number] Nephrology Consult Note Signed Patient: Luis Chong III MR#: [id number] : 1955 Acct:[id number] Age/Sex: 68 / M Adm Date: 3 Loc: Room: [address] [place] [address] Type: ADM INOo Attending Dr: Lon Cisneros MD Copies to: MD Lon Ruiz MD Marc Naderer, MD~ Providers Consult Date: 06/10/23 Requesting Provider: Lon Cisneros MD Primary Care Provider: Angel Luis Sanches MD HPI Reason for Consult: End-stage renal disease on PD History of Present Illness: This is 68-year-old -N[place]alese male patient with a past medical history ofend-stage renal disease on PD follows with Dr. Winchester in [facility], renal cell carcinoma status post nephrectomy, gout hypertension, anxiety, hyperlipidemia. Patient presented to [facility] emergency room for e valuation of lightheadedness nausea and abdominal pain that he had 2 days ago while he was watchingkids while swimming. Patient then improved and recovered to his baseline when he got home and had anap. Patient felt that he might have passed out. He also had urinary incontinence when that happened. Patient was admitted to finish work-up for syncope. Patient does 4 exchanges of PD fluid every night through cycler. He alternates 2.5% dextrose with 1.5 dextrose. He has not had any issues with PD catheter or PD fluid draining. We will keep the patient on manual exchanges every 4 hours while inpatient. There was issue with draining PD fluid last night. Only 800 cc with drain of the 2000 cc. There has been no reported fibers. Patient denied constipation. Noted high blood pressure this morning. Home blood pressure medication verapamil and hydrochlorothiazide has been on hold. Patient denied any episode of dizziness. No chest pain. No shortness of breath. No abdominal pain. No fever. Patient was seen while the nurses attempting to drain PD fluid Review of Systems Review of Systems Review of systems: 12 system review is negative [facility] Medical History (Updated 06/10/23 @ 12:43 by Reece Rodriguez MD) Anemia Hutchinson's palsy Cluster headache Diverticulitis GERD (gastroesophageal reflux disease) Glaucoma Gout History of kidney cancer Hyperlipidemia Hypertension Kidney failure Surgical History History of hernia repair History of nephrectomy partial, tumor removed Family History (Updated 06/10/23 @ 00:13 by Ai Vasquez APRN) Sister COPD (chronic obstructive pulmonary disease) Brain cancer Sister COPD (chronic obstructive pulmonary disease) Mother CHF (congestive heart failure) Diabetes mellitus, type 2 Kidney failure Grandparent Stroke Social History Smoking Status: Never smoker Substance Use Type: None Meds Medications & Allergies Allergies cephalexin [From Keflex] Adverse Reaction (Verified 09/29/22 10:59) Itching Home Medications qhwnbhekiy-fibmlszusekfq-yrfsqwbt 50 mg-325 mg-40 mg capsule 1 cap PO Q4H PRN Pain 07/14/18 [History Confirmed 09/29/22] omeprazole 20 mg capsule,delayed release 20 mg PO QAM 07/14/18 [History Confirmed 06/09/23] verapamil 240 mg 24 hr capsule,extended release 240 mg PO QAM 07/14/18 [History Confirmed 06/09/23] allopurinol 100 mg tablet 100 mg PO QAM 09/27/22 [History Confirmed 06/09/23] atorvastatin 80 mg tablet 80 mg PO QHS 09/27/22 [History Confirmed 06/09/23] brimonidine 0.2 % eye drops 1 drp Eye-Both BID 09/27/22 [History Confirmed 06/09/23] calcitriol 0.5 mcg capsule 0.5 mcg PO QAM 09/27/22 [History Confirmed 06/09/23] dorzolamide 2 % eye drops 1 drp Eye-Both BID 09/27/22 [History Confirmed 06/09/23] ferrous sulfate 325 mg (65 mg iron) tablet 325 mg PO QAM 09/27/22 [History Confirmed 06/09/23] fluticasone propionate 50 mcg/actuation nasal spray,suspension 1 spray intranasal QAM 09/27/22 [History Confirmed 09/29/22] furosemide 40 mg tablet 80 mg PO BID 09/27/22 [History Confirmed 06/09/23] gabapentin 300 mg capsule 300 mg PO QHS 09/27/22 [History Confirmed 06/09/23] hydralazine 50 mg tablet 50 mg PO BID 09/27/22 [History Confirmed 06/09/23] sodium bicarbonate 650 mg tablet 650 mg PO TID 09/27/22 [History Confirmed 09/29/22] timolol maleate 0.5 % eye drops 1 drp Eye-Both BID 09/27/22 [History Confirmed 06/09/23] hydrocodone 5 mg-acetaminophen 325 mg tablet 1 tab PO Q6H PRN pain 7 days #28 tabs 09/29/22 [Rx] Active Medications: Active Medications Acetaminophen (Acetaminophen 500 Mg Tablet) 1,000 mg PO Q6HR PRN PRN Reason: Pain Scale 1 - 3 or fever Stop: 06/08/24 22:43 Allopurinol (Allopurinol 100 Mg Tablet) [facility] Stop: 06/09/24 09:59 Last Admin: 06/10/23 10:29 Dose: 100 mg Atorvastatin Calcium (Atorvastatin 80 Mg Tablet) 80 mg PO QHS [facility] Stop: 06/09/24 21:59 Brimonidine Tartrate (Brimonidine 0.15% Op Soln 100 Drops/5 Ml Drops) 1 drops EYE-BOTH BID [facility] Stop: 06/09/24 20:59 Calcitriol (Calcitriol 0.5 Mcg Capsule) 0.5 mcg PO QAM [facility] Stop: 06/09/24 09:59 Last Admin: 06/10/23 10:30 Dose: 0.5 mcg Dorzolamide HCl (Dorzolamide 2% Op Soln 200 Drops/10 Ml Bottle) 1 drops EYE-BOTH BID [facility] Stop: 06/09/24 20:59 Ferrous Sulfate (Ferrous Sulfate 324 Mg Tablet.Dr) 324 mg [facility] Stop: 06/09/24 09:59 Last Admin: 06/10/23 10:29 Dose: 324 mg Furosemide (Furosemide 80 Mg Tablet) 80 mg PO BID@0800,1600 [facility] Stop: 06/09/24 09:59 Last Admin: 06/10/23 10:29 Dose: 80 mg Gabapentin (Gabapentin 300 Mg Capsule) 300 mg PO QHS [facility] Stop: 06/09/24 21:59 Hydralazine HCl (Hydralazine 50 Mg Tablet) 50 mg PO BID [facility] Stop: 06/09/24 09:29 Last Admin: 06/10/23 10:30 Dose: 50 mg Melatonin (Melatonin 5 Mg Tablet) 5 mg PO QHS PRN PRN Reason: Insomnia Stop: 06/09/24 21:59 Pantoprazole Sodium (Pantoprazole 40 Mg Tablet.Dr) 40 mg PO QAM [facility] Stop: 06/09/24 09:59 Last Admin: 06/10/23 10:29 Dose: 40 mg Sodium Chloride (Sodium Chloride 0.9 % 10 Ml Syringe) 0 ml IV-PUSH QSHIFT [facility] Stop: 06/09/24 05:59 Last Admin: 06/10/23 06:10 Dose: 10 ml Timolol Maleate (Timolol Mal 0.5% Op Soln 100 Drops/5 Ml Bottle) 1 drops EYE- BOTH BID [facility] Stop: 06/09/24 09:59 Last Admin: 06/10/23 10:31 Dose: 1 drops Verapamil HCl (Verapamil Er (Sr) 240 Mg Tablet.Er) 240 mg PO QAM [facility] Stop: 06/09/24 09:59 Last Admin: 06/10/23 10:30 Dose: 240 mg Exam Physical Exam Vital Signs: Temp Pulse Resp BP Pulse Ox O2 Del Method 98.8 F 81 16 167/101 H 97 Room Air 06/10/23 11:30 06/10/23 11:30 06/10/23 11:30 06/10/23 11:30 06/10/23 11:30 06/10/23 11:30 Narrative: General: No acute distress Head :atraumatic normocephalic Eyes: PERRLA. Neck: no JVD no bruit. Heart: S1-S2. RRR Respiratory: Clear to auscultation. No wheezing. No crackles Abdomen: Soft, positive bowel sounds,no tenderness. PD catheter in place with clear exit site Neurology: Awake alert oriented x3. No focal deficits Extremity. No cyanosis. No edema Skin: No skin rash Results Labs 06/10/23 05:41 Labs: 06/09/23 06/10/23 06/10/23 23:14 05:41 10:20 BUN 32 H 31 H Creatinine 9.31 H 9.22 H Phosphorus 4.0 3.8 Albumin 2.9 L Radiology Impressions Impressions - last 24 hours: Any impression(s) listed above is documentation that was entered by the reading physician into a diagnostic report(s) for Luis Chong III. I have reviewed the report(s) and am incorporating any findings in the treatment plan of this patient where applicable. A&P - Nephrology Assessment/Plan (1) End-stage renal disease on peritoneal dialysis: Plan: Patient follows with Dr. Winchester in [facility] for end-stage renal disease on CCPD. He has end-stage renal disease from nephrectomy and history of hypertensive nephropathy (2) Anemia of renal disease: Plan: Hemoglobin is below target. Patient does follow with police records clerk in [facility] for anemia management. (3) Hypertension: Plan: Blood pressure has been elevated this morning. Home blood pressure medications verapamil and hydralazine has been on hold (4) Syncope: Plan: Patient presented for episode of presyncope/syncope, urinary incontinence, nausea and abdominal pain that happened 2 days ago. Now resolved Plan - We will continue see CAPD with 6 exchanges daily using 1.5% dextrose. Will use 2 L filling volume -PD fluid draining is low. The PD catheter was flushed in my presence. We will place for 1300 PD fluid and then will try to drain it again in 4 hours. We will order IP heparin 500 unit in each liter.Patient is insisting on leaving home today. Patient informed the nurse that he will sign AMA if he has to stay. I am okay to discharge patient today. Patient should be instructed to report back to emergency room if he continues to have difficult PD fluid draining -Resume home blood pressure medication hydralazine and verapamil -Patient will need to start/continue VINAY as directed by his police records clerk. Thank you for the consult. Call if any question or concern Documented By: Reece Rodriguez MD 06/10/23 1237 Signed By: <Electronically signed by Reece Rodriguez MD> 06/10/23 124 [facility] Work Phone: 1(229) 165-390208-19-2023 Hospital Discharge instructions Additional Instructions Report back to emergency room if he continues to have difficult PD fluid draining. Cardiology recommends 30 day cardiac event monitor after discharge. [facility] and you will be provided with a copy of the order at discharge. Please call [facility] Central Scheduling at [phone] on Monday to arrange a time/date.[facility] Work Phone: 1(474) 551-880208-19-2023 History and physical note Author Nicolas Man [facility] June 10, 2023 2:12amNote Date/TimeAugust 2022 10:36pm[place] [address] Hospitalist H&P Signed with Addenda Patient: Luis Chong III MR#: [id number] : 1955 Acct:[id number] Age/Sex: 68 / M Adm Date: 3 Loc: Room: [address] [place] [address] Type: ADM INOo Attending Dr: Lon Cisneros MD Copies to: MD Angel Luis Lawrence MD Mazhar Rahman, MD Paula G Smith, UNDERGROUND FOREMAN~ ADDENDUM1 Patient was personally seen by me on the day of encounter, reviewed his history and performed gregory elements of exam and formulated the plan of care and confirmedthe nurse practitioner/PA note below. Patient has been transferred from [facility] ER due to concern for syncope and elevated troponin. Patient denies prior history of heart disease, recent infection, fever, chills, chest pain or shortness of breath. 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 On Monday being in his normal state of health at [facility] whenhe came out watching kids swimming. He was wearing a sweatshirt as normally it is cold inside. While sitting outside it was warm he felt uncomfortable with nausea. He came inside while trying to call his he was having difficulty as he felt lightheaded. He denies having chest pain or difficulty breathing. When EMS came and helped him get up he did not notice that he was incontinent ofurine. Patient thinkshe might have passed out for few seconds. Denies prior history of syncope or seizure. He has been feeling well since that episode as he refused to come to the emergency room on Monday. His family convinced himto go to the emergency room yesterday to get checked although he has been feeling back to his normal since that episode on Monday. He denies recent change in medications. Addendum Documented By: Nicolas Man MD 06/10/23211 Addendum Signed By: <Electronically signed by Nicolas Man MD> 06/10/23211 HPI DATE OF EXAMINATION: 06/09/23 CHIEF COMPLAINT: abd pain, nausea, and light headedness HISTORY OF PRESENT ILLNESS: Mr. Chong is a 68 year old male with a PMH of CKD on peritoneal dialysis, HTN, anxiety, HLD, bells palsy that went to [facility] for abd pain, nausea, light headedness on monday. Patient seen and evaluated at bedside, resting inbed quietly. Patient reports he was at work on Monday at the [employer], was sitting outside watching kids swim and all of a sudden he felt abdominal pain, nauseated and light headedness. States he went inside to sit down and tried to call his , but he couldn't get his fingers to work to dialthe phone, so he called for help. He thinks they called 911 cause they asked himif he wanted to go to the hospital and he told them no, he just wanted togo home. His coworker helped him out to the car when his got there, he noticedthat he had beenincontinent of urine. I think I just got overheated, it was hot that day, and I didn't eat, I had gotten Verenice's but I took one bite and could not eat the rest. I went home and slept, I felt fine and today. He believes he did lose consciousness that day. He denies chest pain, shortness of breath, fever, chills, vomiting. Reports his dialysis has been going well at home, police records clerk isDr. Lara. [place] chart review, EKG sinus rhythm, no ST elevation. CBC with an H&H of 10.6/32.8. BUN 30,creat 8.68, magnesium 1.8, troponin 770.3, repeat 781.9. He received a 1L bolus of saline. [facility]to [facility] under the care of the hospitalist team. Review of Systems Review of Systems Review of systems: A 10 point review of systems was obtained, negative unless noted in the HPI or below. PMFSH Medical History (Updated 06/10/23 @ 00:20 by Ai Vasquez APRN) Anemia Hutchinson's palsy Cluster headache Diverticulitis GERD (gastroesophageal reflux disease) Glaucoma Gout History of kidney cancer Hyperlipidemia Hypertension Kidney failure Surgical History History of hernia repair History of nephrectomy partial, tumor removed Family History Sister COPD (chronic obstructive pulmonary disease) Brain cancer Sister COPD (chronic obstructive pulmonary disease) Mother CHF (congestive heart failure) Diabetes mellitus, type 2 Kidney failure Grandparent Stroke Social History Marital Status: Household Members: spouse Housing: house Smoking Status: Never smoker Meds Medications and Allergies Allergies cephalexin [From Keflex] Adverse Reaction (Verified 09/29/22 10:59) Itching Home Medications wylplwruej-qqhqzdqsnzurp-lzigyutz 50 mg-325 mg-40 mg capsule 1 cap PO Q4H PRN Pain 07/14/18 [History Confirmed 09/29/22] omeprazole 20 mg capsule,delayed release 20 mg PO QAM 07/14/18 [History Confirmed 06/09/23] verapamil 240 mg 24 hr capsule,extended release 240 mg PO QAM 07/14/18 [History Confirmed 06/09/23] allopurinol 100 mg tablet 100 mg PO QAM 09/27/22 [History Confirmed 06/09/23] atorvastatin 80 mg tablet 80 mg PO QHS 09/27/22 [History Confirmed 06/09/23] brimonidine 0.2 % eye drops 1 drp Eye-Both BID 09/27/22 [History Confirmed 06/09/23] calcitriol 0.5 mcg capsule 0.5 mcg PO QAM 09/27/22 [History Confirmed 06/09/23] dorzolamide 2 % eye drops 1 drp Eye-Both BID 09/27/22 [History Confirmed 06/09/23] ferrous sulfate 325 mg (65 mg iron) tablet 325 mg PO QAM 09/27/22 [History Confirmed 06/09/23] fluticasone propionate 50 mcg/actuation nasal spray,suspension 1 spray intranasal QAM 09/27/22 [History Confirmed 09/29/22] furosemide 40 mg tablet 80 mg PO BID 09/27/22 [History Confirmed 06/09/23] gabapentin 300 mg capsule 300 mg PO QHS 09/27/22 [History Confirmed 06/09/23] hydralazine 50 mg tablet 50 mg PO BID 09/27/22 [History Confirmed 06/09/23] sodium bicarbonate 650 mg tablet 650 mg PO TID 09/27/22 [History Confirmed 09/29/22] timolol maleate 0.5 % eye drops 1 drp Eye-Both BID 09/27/22 [History Confirmed 06/09/23] hydrocodone 5 mg-acetaminophen 325 mg tablet 1 tab PO Q6H PRN pain 7 days #28 tabs 09/29/22 [Rx] Exam Physical Exam Narrative: CONST- Appears well -developed and well nourished. Morbidly obese HEAD - Normocephalic and atraumatic EENT-Sclera nonicteric, conjunctive are non-erythemic, moist oral mucosa, pharynx clear, cataract to R eye with decreased vision NECK-Supple, no cervical lymphadenopathy CARDIAC-normal rate, regular rhythm, S1 & S2. PULM-diminished without wheeze or rhonchi, RA, no accessory muscle use or cough noted ABD - Soft. Bowel sounds are normal. Softly distended. No tenderness, peritoneal dialysis catheter in place EXTREM-no edema BLE calves, nontender SKIN- W/D good turgor, two small scabs noted to abdomen MS- MAEX4 spontaneously with equal with equal strength NEURO- A&Ox3 speech clear and tongue midline, equal facial symmetry, no focal motor deficits, left sided facial droop-history of hutchinson's palsy PSYCH-Mood, affect, and behavior appropriate, slight anxiety noted Assessment & Plan Assessment/Plan (1) Syncope: (2) Elevated troponin: (3) Hypertension: (4) Hyperlipidemia: (5) Peritoneal dialysis catheter in place: (6) CKD (chronic kidney disease) stage 5, GFR less than 15 ml/min: Plan Syncopal- occurred on Monday Elevated troponin?troponins at [facility] 770.3 and 781, current troponin here 32.9 ? Stat troponin, CMP ? Echo, carotid ultrasound, CT of the brain without contrast in a.m. ? Troponin, BMP, magnesium in a.m. Chronic conditions HTN?monitor, will resume home meds once confirmed HLD?resume home meds CKD stage V on peritoneal dialysis?current GFR 5.5, baseline ~7, current creatinine 9.31, was 9.2 in 09/2022?consult nephrology for peritoneal dialysis DVT PPx-SCDs Diet order-regular CODE STATUS-full code as discussed with patient IP vs OBS Justification Based on differential dx, clinical care plan, and risk of adverse events, if untreated, in my clinical judgement this patient requires an acute care setting as: OBSERVATION because of an expectation of an under 2 midnight stay. Estimated length of stay (# of days): 2 Documented By: Ai Vasquez APRN 06/09/232235 Signed By: <Electronically signed by KARYNA Vasquez> 06/10/23 0026 <Electronically signed by Nicolas Man MD> 06/10/23 0[address] [facility] Work Phone: 1(415) 576-495011-29-2022 Evaluation note* Encounter Date Diagnosis Assessment Notes Treatment Notes Treatment Clinical Notes Aug, Hypertensive chronic kidney disease with stage 1 through stage 4 chronic kidney disease, or unspecified chronic kidney disease (ICD-10 - I12.9) Blood pressure is well controlled. Continue same blood pressure medications. I asked the patient tofollow low-salt diet Aug,KD (chronic kidney disease) stage 5, GFR less than 15 ml/min (ICD- 10 - N18.5)The patient has advanced CKD stage V now with GFR down to 7 ml/min related to partial nephrectomy and longstanding history of hypertension with overweight. patient is scheduled to have PD catheter placement next month. We will follow up with the patient in PD clinic Aug,Hyperuricuria (ICD-10 - R82.998)No more episodes of gout Aug,Mixed hyperlipidemia (ICD-10 - E78.2)He follow-up with Dr. Soni. Aug,nemia in chronic kidney disease (ICD-10 - D63.1)Hemoglobin slightly down however it has been stable between 9.-10 g/dL in the setting of advanced chronic kidney disease. He has mild iron deficiency.Iron Sat 19% Patient has been refusin IV Iron. on oral Iron supplement No need for VINAY for now. 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 on oral calcitril. Ca and P are within normal limit. On calictriol daily Aug,ersistent proteinuria (ICD-10 - R80.1)He had 2-2.5 gm/gm of creatinine proteinuria of creatinine Proteinuria is most likely related to hyp ertension. He has been having good HbA1c Aug,Neoplasm of left kidney (ICD-10 - D49.512)He had partial left nephrectomy related to renal cancer that may contribute to progression of chroni c kidney disease [facility] Other 10-18-2022 Evaluation note* Encounter Date Diagnosis Assessment Notes Treatment Notes Treatment Clinical Notes Jul, Hypertensive chronic kidney disease with stage 1 through stage 4 chronic kidney disease, or unspecified chronic kidney disease (ICD-10 - I12.9) Blood pressure is above the target. Blood pressure improved with starting PD. Continue same blood pressure medications. I asked the patient to follow low-salt diet Jul,KD (chronic kidney disease) stage 5, GFR less than 15 ml/min (ICD- 10 - N18.5)The patient has advanced CKD stage V now with GFR down to 7 ml/min related to partial nephrectomy and longstanding history of hypertension with overweight. Patient agreed to proceed for PD catheter. I will refer the patient to Dr. Mroa office for PD catheter placement Jul,Hyperuricuria (ICD-10 - R82.998)No more episodes of gou Jul,Mixed hyperlipidemia (ICD-10 - E78.2)He follow-up with Dr. Soni. Jul,nemia in chronic kidney disease (ICD-10 - D63.1)Hemoglobin slightly down however it has been stable between 9.-10 g/dL in the setting of advanced chronic kidney disease. He has mild iron deficiency.Iron Sat 19% Patient has been refusin IV Iron. on oral Iron supplement No need for VINAY for now. Jul,econdary renal hyperparathyroidism (ICD-10 - N25.81)He still has elevated intact PTH but remains < 600. on oral calcitril. Ca and P are within normal limit. I asked the patient to increase calcitriol to every day Jul,ersistent proteinuria (ICD-10 - R80.1)He had 2-2.5 gm/gm of creatinine proteinuria that is down to 250 mg/gm of creatinine with decline of renal function. Proteinuria is most likely related to hypertension. He has been havinf good HbA1c 18 Jul, 2022Neoplasm of left kidney (ICD-10 - D49.512)He had partial left nephrectomy related to renal cancer that may contribute to progression of chroni c kidney disease [facility] Other 06-14-2022 Evaluation note* Encounter Date Diagnosis Assessment Notes Treatment Notes Treatment Clinical Notes Mar, CKD (chronic kidney disease) stage 5, GFR less than 15 ml/min (ICD- 10 - N18.5) The patient has advanced CKD stage V now with GFR down to 8\10 ml/min related to partial nephrectomy and longstanding history of hypertension with overweight. He has no significant proteinuria or hematuria. Patient did refuse dialysis before but he agred today to be referred for AVF placement Advised the patient to follow low protein diet of 0.7 g/kg/daily Continue sodium bicarb. He has no uremic symptoms. Monitor renal panel every 4-6month. Patient was advised to call our office if he has symptoms or change his mind about dialysis to proceed with AV fistula or dialysis catheter as indicated. Mar,nemia in chronic kidney disease (ICD-10 - D63.1)Hemoglobin slightly down however it has been stable between 9.5-10 g/dL in the setting of advanced chronic kidney disease. He has mild iron deficiency.Iron Sat 27% Patient has been refusin IV Iron. on oral Iron supplement No need for VINAY for now. Mar,Hypertensive chronic kidney disease with stage 1 through stage 4 chronic kidney disease, or unspecified chronic kidney disease (ICD-10 - I12.9) Blood pressure is reasonably controlled considering his advanced CKD. Continue low-salt diet. Mar,ersistent proteinuria (ICD-10 - R80.1)He had 2-2.5 gm/gm of creatinine proteinuria that is down to 250 mg/gm of creatinine with decline of renal function. Proteinuria is most likely related to hypertension. He has been havinf good HbA1c 14 Mar, 2022Neoplasm of left kidney (ICD-10 - D49.512)He had partial left nephrectomy related to renal cancer that may contribute to progression of chroni c kidney disease 14 Noah, 2022Mixed hyperlipidemia (ICD-10 - E78.2)He follow-up with Dr. Soni. Mar,Hyperuricuria (ICD-10 - R82.998)No more episodes of gout. 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 on oral calcitril. Ca and P are within normal limit [facility] Other 12-07-2021 Evaluation note* Encounter Date Diagnosis Assessment Notes Treatment Notes Treatment Clinical Notes Sep, CKD (chronic kidney disease) stage 5, GFR less than 15 ml/min (ICD- 10 - N18.5) The patient has advanced CKD stage V now with GFR down to 10 ml/min related to partial nephrectomy and longstanding history of hypertension with overweight. He has no significant proteinuria or hematuria. Patient did refuse dialysis and AV fistula preparation on several occasions despite recommendations to consider dialysis considering his younger age. I discussed with him risks of sudden and gradual decline in general condition. Patient still insisting on conservative treatment only withno dialysis. Continue sodium bicarb. He has mild acidosis however it is corrected by oral serum bicarbonate. He has no uremic symptoms. Monitor renal panel every 4-6month. Patient was advised to call our office if he has symptoms or change his mind about dialysis to proceed with AV fistula or dialysis catheter as indicated. Sep,nemia in chronic kidney disease (ICD-10 - D63.1) Hemoglobin slightly down however it has been stable between 9.5-10 g/dL in the setting of advanced chronic kidney disease. He has mild iron deficiency. He did stop oral iron because of constipation. He was offered IV iron injections however he stated that he will take the oral iron again as he willdoes not like injection. We will recheck iron stores in 4 to 6-month and replete with IV iron and start erythropoietin when indicated. Sep,Hypertensive chronic kidney disease with stage 1 through stage 4 chronic kidney disease, or unspecified chronic kidney disease (ICD-10 - I12.9) Blood pressure is reasonably controlled considering his advanced CKD. Continue low-salt diet. Sep,ersistent proteinuria (ICD-10 - R80.1) He had 2-2.5 gm/gm of creatinine proteinuria that is down to 250 mg/gm of creatinine with decline of renal function. Proteinuria is most likely related to hypertension. He had hemoglobin A1c 6.1%, itis not clear if the patient has been diabetic currently with better diabetes control with advanced chronic kidney disease. He is a high risk for FSGS considering his large body mass and being -Nepalese. 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 Soni. Sep,Hyperuricuria (ICD-10 - R82.998) No more episodes of gout Sep,econdary renal hyperparathyroidism (ICD-10 - N25.81) He still has elevated intact PTH with no response to ergocalciferol. Patient was advised to divide calcitriol as it is generic. He will check with local pharmacies about the best suero he can get. [facility] Other 10-02-2018 Miscellaneous Notes* Telephone Encounter - Janneth Grier - 07/24/2018 10:35 AM EDT close documented in this encounterThe [facility] HospitalCyber[facility] [id number] Telephone encounter Note* Telephone Encounter - Janneth Grier - 07/24/2018 10:35 AM EDT close [facility] Converged Access SystemConsult note Author Clau Sanchez [facility] June 10, 2023 1:24pmNote Date/TimeAugust 2022 1:18pm[place] [address] Cardiology Consult Note Signed Patient: Luis Chong III MR#: [id number] : 1955 Acct:[id number] Age/Sex: 68 / M Adm Date: 3 Loc: 3T Room: [address] [place] [address] Type: ADM INOo Attending Dr: Lon Cisneros MD Copies to: MD Angel Luis Lawrence MD Mourhaf A Traboulssi, MD~ Cardiology HPI History of Present Illness Consult Date: 06/10/23 Reason for Consult: Cardiac consultation requested for evaluation of syncope and borderline elevatedtroponin HPI: Mr. Chong is a 68 year -Nepalese old male with history of end-stage renaldisease on home peritoneal dialysis brought to the hospital after he experienceda syncopal episode. Patient reports he was working in the [employer]. He was indoor and the weather was relatively cool. He decided to go outside the weather was quite hot. He felt lightheaded dizzy and a little bit nauseated. He sat down and ask for help. Apparently he had a brief episode of presyncope. He was weak. He also reports difficulty finding his words and did have an episode of urinary incontinence. There was no documented seizure activity. Patient report he did not eat that day. Patient reports symptoms has improved. His came and brought him back home. He refused to come to the hospital initially but after his family insisting on evaluation he elected to come Mondayto the hospital where he was evaluated and so farhis evaluation has been benign. There is no documented arrhythmia or hemodynamic instability. The patient denies any active complaint at the moment. Patient report over the last8-month since startinga peritoneal dialysis he lost close to 50 pounds. He is not diabetic. He denies previous history ofseizure or cerebrovascular event. Patient troponin was minimally elevated the enzyme curve appears relatively flat Review of Systems Review of Systems All other systems reviewed & are negative unless noted below or in HPI Constitutional Constitutional: Reports system reviewed and no additional complaints, except as documented Eyes Eyes: Reports system reviewed and no additional complaints, except as documented ENT Ears, Nose, Mouth, and Throat: Reports system reviewed and no additional complaints, except as documented Cardiovascular Cardiovascular: Reports system reviewed and no additional complaints, except as documented Respiratory Respiratory: Reports dyspnea on exertion Gastrointestinal Gastrointestinal: Reports system reviewed and no additional complaints, except as documented Genitourinary Genitourinary: Reports system reviewed and no additional complaints, except as documented Integumentary/Breasts Skin/Breast: Reports system reviewed and no additional complaints, except as documented Neurologic Neurologic: Reports system reviewed and no additional complaints, except as documented Psychiatric Psychiatric: Reports system reviewed and no additional complaints, except as documented Endocrine Endocrine: Reports system reviewed and no additional complaints, except as documented Hematologic/Lymphatic Hematologic/Lymphatic: Reports system reviewed and no additional complaints, except as documented Allergic/Immunologic Allergic/Immunologic: Reports system reviewed and no additional complaints, except as documented [facility] Source: Unable to Obtain Medical History (Updated 06/10/23 @ 12:43 by Reece Rodriguez MD) Anemia Hutchinson's palsy Cluster headache Diverticulitis GERD (gastroesophageal reflux disease) Glaucoma Gout History of kidney cancer Hyperlipidemia Hypertension Kidney failure Surgical History History of hernia repair History of nephrectomy partial, tumor removed Family History (Updated 06/10/23 @ 00:13 by Ai Vasquez APRN) Sister COPD (chronic obstructive pulmonary disease) Brain cancer Sister COPD (chronic obstructive pulmonary disease) Mother CHF (congestive heart failure) Diabetes mellitus, type 2 Kidney failure Grandparent Stroke Social History Smoking Status: Never smoker Substance Use Type: None Meds Medications and Allergies Allergies cephalexin [From Keflex] Adverse Reaction (Verified 09/29/22 10:59) Itching Home Medications tczptdlvhq-podbzqzjaqvxh-tiqmquxw 50 mg-325 mg-40 mg capsule 1 cap PO Q4H PRN Pain 07/14/18 [History Confirmed 09/29/22] omeprazole 20 mg capsule,delayed release 20 mg PO QAM 07/14/18 [History Confirmed 06/09/23] verapamil 240 mg 24 hr capsule,extended release 240 mg PO QAM 07/14/18 [History Confirmed 06/09/23] allopurinol 100 mg tablet 100 mg PO QAM 09/27/22 [History Confirmed 06/09/23] atorvastatin 80 mg tablet 80 mg PO QHS 09/27/22 [History Confirmed 06/09/23] brimonidine 0.2 % eye drops 1 drp Eye-Both BID 09/27/22 [History Confirmed 06/09/23] calcitriol 0.5 mcg capsule 0.5 mcg PO QAM 09/27/22 [History Confirmed 06/09/23] dorzolamide 2 % eye drops 1 drp Eye-Both BID 09/27/22 [History Confirmed 06/09/23] ferrous sulfate 325 mg (65 mg iron) tablet 325 mg PO QAM 09/27/22 [History Confirmed 06/09/23] fluticasone propionate 50 mcg/actuation nasal spray,suspension 1 spray intranasal QAM 09/27/22 [History Confirmed 09/29/22] furosemide 40 mg tablet 80 mg PO BID 09/27/22 [History Confirmed 06/09/23] gabapentin 300 mg capsule 300 mg PO QHS 09/27/22 [History Confirmed 06/09/23] hydralazine 50 mg tablet 50 mg PO BID 09/27/22 [History Confirmed 06/09/23] sodium bicarbonate 650 mg tablet 650 mg PO TID 09/27/22 [History Confirmed 09/29/22] timolol maleate 0.5 % eye drops 1 drp Eye-Both BID 09/27/22 [History Confirmed 06/09/23] hydrocodone 5 mg-acetaminophen 325 mg tablet 1 tab PO Q6H PRN pain 7 days #28 tabs 09/29/22 [Rx] Exam Physical Exam Vital Signs: Temp Pulse Resp BP Pulse Ox O2 Del Method 98.8 F 81 16 167/101 H 97 Room Air 06/10/23 11:30 06/10/23 11:30 06/10/23 11:30 06/10/23 11:30 06/10/23 11:30 06/10/23 11:30 Const General: cooperative, comfortable, no acute distress and well developed Nutritional Appearance: obese HEENT Head: atraumatic Mouth: oral mucosae normal Eyes General: appearance normal, both eyes and all related structures Pupils: PERRL Neck Neck: normal visual inspection, supple and no lymphadenopathy noted Neck mass: No Thyroid: thyroid normal Carotids: normal carotid upstroke Chest Chest palpation & inspection: normal inspection of the chest Resp Effort & Inspection: normal respiratory effort Auscultation: clear to auscultation bilaterally Cardio Palpation: normal PMI Rate: regular rate Rhythm: regular rhythm Heart Sounds: S1 normal, S2 normal and murmur systolic II/ and at the left sternal border GI Palpation: soft and no hepatosplenomegaly Percussion: normal to percussion Auscultation: normal bowel sounds Skin General: no rashes or lesions noted and dry skin Neuro General: patient alert, patient awake, patient oriented x3, tone normal and moves all extremities Extrem General: full ROM, capillary refill normal and no clubbing, cyanosis or edema Psych Mental Status: mental status grossly normal Results Labs 06/10/23 05:41 Lab results: Cardiac Enzymes 06/09/23 Range/Units 23:14 AST 18 (13-39) U/L Comprehensive Metabolic Panel 06/09/23 06/10/23 Range/Units 23:14 05:41 Sodium 140 141 (136-145) mmol/L Potassium 3.5 3.4 L (3.5-5.1) mmol/L Chloride 103 104 (98-107) mmol/L Carbon Dioxide 29.0 28.4 (21.0-31.0) mmol/L BUN 32 H 31 H (7-25) mg/dL Creatinine 9.31 H 9.22 H (0.70-1.30) mg/dL Glucose 102 H 101 H (70-100) mg/dL Calcium 8.8 8.6 (8.6-10.3) mg/dL AST 18 (13-39) U/L ALT 23 (7-52) U/L Alkaline Phosphatase 66 (34-104) U/L Total Protein 7.3 (6.4-8.9) gm/dL Albumin 2.9 L (3.5-5.7) gm/dL Intake and Output 06/09/23 06/10/23 06/10/23 23:59 07:59 15:59 Intake Total 2000 / 3200 1200 / 3200 Output Total 850 / 850 Balance 1150 / 2350 1200 / 2350 Intake: Intraperitoneal 2000 / 3200 1200 / 3200 Output: Intraperitoneal 850 / 850 Other: # Unmeasured Voids 2 # Bowel Movements 1 Weight 139 kg 141.6 kg Date of Last Bowel Movement 06/10/23 06/10/23 Patient Weight 06/10/23 23:59 Weight 141.6 kg EKG Interpretations EKG Attestation EKG: I reviewed this ECG and interpreted as documented below: (Normal sinus rhythm nonspecific ST-T changes with 1 PVC) A&P - Cardiology (1) End-stage renal disease on peritoneal dialysis: Code(s): N18.6 - End stage renal disease; Z99.2 - Dependence on renal dialysis Plan Assessment 1. Brief syncopal episode etiology unclear. Could be vasovagal versus transient hypotension. The patient did have some urinary incontinence the possibility of neurologic issues also should be considered. Patient informed me that he refused CT scan because of claustrophobia 2. Mild aortic stenosis 3. Trivial troponin elevation of no clinical significance it is fairly flat and clearly due to decreased renal clearance 4. Obesity 5. Patient had minor complaint of nausea could be related to vasovagal reaction or hypotension no recurrence 6. End-stage renal disease on hemodialysis Plan 1. Echocardiogram noted 2. Check carotid Doppler 3. Patient episode happened last Monday. There is no documentation of any arrhythmia or neurologic issues. 4. Patient can be discharged home cardiac-leija will recommend outpatient 30-day event monitor and noninvasive ischemic evaluation Documented By: Clau Sanchez MD 06/10/23 1315 Signed By: <Electronically signed by MD Clau Sanchez> 06/10/[address] 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: Juan Carlos Lopes DO [facility] Medical History (Updated 08/09/23 @ 15:17 by Juan Carlos Lopes DO) Anemia Hutchinson's palsy Cluster headache Diverticulitis GERD (gastroesophageal reflux disease) Glaucoma Gout History of kidney cancer Hyperlipidemia Hypertension Kidney failure Surgical History History of hernia repair History of nephrectomy partial, tumor removed Family History (Updated 06/10/23 @ 00:13 by Ai Vasquez APRN) Sister COPD (chronic obstructive pulmonary disease) Brain cancer Sister COPD (chronic obstructive pulmonary disease) Mother CHF (congestive heart failure) Diabetes mellitus, type 2 Kidney failure Grandparent Stroke Social History Smoking Status: Never smoker Substance Use Type: None Meds Medications and Allergies Allergies cephalexin [From Keflex] Adverse Reaction (Verified 08/09/23 11:19) Itching Home Medications eeyuhylmza-alvzznltjycgq-mehtdzyb 50 mg-325 mg-40 mg capsule 1 cap PO Q4H PRN Pain 07/14/18 [History Confirmed 09/29/22] omeprazole 20 mg capsule,delayed release 20 mg PO QAM 07/14/18 [History Confirmed 06/09/23] verapamil 240 mg 24 hr capsule,extended release 240 mg PO QAM 07/14/18 [History Confirmed 06/09/23] allopurinol 100 mg tablet 100 mg PO QAM 09/27/22 [History Confirmed 06/09/23] atorvastatin 80 mg tablet 80 mg PO QHS 09/27/22 [History Confirmed 06/09/23] brimonidine 0.2 % eye drops 1 drp Eye-Both BID 09/27/22 [History Confirmed 06/09/23] calcitriol 0.5 mcg capsule 0.5 mcg PO QAM 09/27/22 [History Confirmed 06/09/23] dorzolamide 2 % eye drops 1 drp Eye-Both BID 09/27/22 [History Confirmed 06/09/23] ferrous sulfate 325 mg (65 mg iron) tablet 325 mg PO QAM 09/27/22 [History Confirmed 06/09/23] fluticasone propionate 50 mcg/actuation nasal spray,suspension 1 spray intranasal QAM 09/27/22 [History Confirmed 09/29/22] furosemide 40 mg tablet 80 mg PO BID 09/27/22 [History Confirmed 06/09/23] gabapentin 300 mg capsule 300 mg PO QHS 09/27/22 [History Confirmed 06/09/23] hydralazine 50 mg tablet 50 mg PO BID 09/27/22 [History Confirmed 06/09/23] sodium bicarbonate 650 mg tablet 650 mg PO TID 09/27/22 [History Confirmed 09/29/22] timolol maleate 0.5 % eye drops 1 drp Eye-Both BID 09/27/22 [History Confirmed 06/09/23] hydrocodone 5 mg-acetaminophen 325 mg tablet 1 tab PO Q6H PRN pain 7 days #28 tabs 09/29/22 [Rx] Exam Physical Exam Vital Signs: Temp Pulse Resp BP Pulse Ox O2 Del Method 98.6 F 78 18 175/94 H 96 Room Air 08/09/23 11:18 08/09/23 13:06 08/09/23 13:06 08/09/23 13:06 08/09/23 13:06 08/09/23 13:06 Results Laboratory Findings 08/09/23 11:31 08/09/23 11:31 Diagnostic Findings Imaging/Impressions: ITS Impressions Head CTA 08/09/23 00:00 IMPRESSION: No occlusion, critical stenosis or dissection of the extracranial or intracranial circulation. Impression dictated by: Shahbaz Owen M.D.08/09/2023 12:09 PM Dictation Location: [place] [address] Chest X-Ray 08/09/23 11:24 IMPRESSION: No acute process. Impression dictated by: Shahbaz Owen M.D.08/09/2023 12:11 PM Dictation Location: [place] [address] 08/09/23 11:24 IMPRESSION: MINOR MICROVASCULAR DISEASE. NO DEFINITE ACUTE INTRACRANIAL ABNORMALITY. FOLLOW-UP IS RECOMMENDED, SYMPTOMS WARRANT. COMMENT: FINDINGS WERE DISCUSSED WITH DR. VASQUEZ AT 1153 HOURS Impression dictated by: Jessica Robison M.D.08/09/2023 11:58 AM Dictation Location: [place] [address] Assessment/Plan (1) Facial droop: Assessment/Problem Details: CONSULT REASON: Facial droop HPI: 68-year-old man with history of end-stage renal disease on peritoneal dialysis, hypertension, hyperlipidemia, among others. Of note, he says he has history of Hutchinson's palsy many years ago but cannotquite remember which side it was on. He had a pretty good recovery after that. When he woke up thismorning he had weakness on the right side of his face with associated slurred speech. 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 That eye is laterally deviated but he and his do not know if it is worse than usual. He is reluctant to provide much history. He is not enthusiastic about getting further care. He says he will not undergo an MRI. Has not noticed any hearing differences.No taste differences. Arms and legs seem okay. EXAMINATION: Well-kempt. No distress. No deformities or trauma. Normal spinal curvature. Limbs seem well-perfused. No significant edema. Normal work of breathing. Visualized skin is generally intact and without lesions. Affect normal. Patient is alert and generally oriented. Attention normal. Mild dysarthria; speech remains intelligible. Right lens opacified, no light perception. Right eye scleral injection especially inferiorly. Right eye laterally deviated (exotropia), likely chronic to some extent. Incomplete eyelid closure bilaterally, right eyelid closure more delayed. Mild exophthalmos. Facial sensat ion is intact. Hearing seems equal bilaterally. Right-sided facial weakness in a lower motor neuronpattern with partial paralysis of his right forehead. Tongue is midline. Muscle bulk, tone, and strength in limbs are normal. No tremors. Reflexes normal throughout. No pathologic reflexes. Light touch is normal. Vibratory sensation is normal. Normal rapidly alternating movements. No limb dysmetriawith agfhvy-qkjx-qcuafj testing. 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 If this is Hutchinson's palsy, his House-Brackman score is probably III. He has reported history of being diagnosed with Hutchinson's palsy, probably ipsilaterally, in the past. He is blindbecause of a cataract issue in the right eye and that blind right eye is laterally deviated but I do not think that represents any other cranial nerve dysfunction. My suspicion for cerebrovascular disease is fairly low but he does have risk factors of end-stage renal disease, hypertension, hyperlipidemia. PLAN: 1. Given the recurrence of the 7th cranial nerve issue and the confounding right exophthalmos I am in favor of MR imaging, which the patient is saying he will not be able to do because of claustrophobia 2. Start prednisone 60 mg daily for 7 days 3. No acyclovir or valacyclovir needed due to concerns of the potential to worsen his renal dysfunction and his House-Brackmann score is less than IV. 4. Lacri-Lube eye ointment for portions of eyes that remain exposed despite eyelid closure Code(s): R29.810 - Facial weakness Status: Acute Documented By: Juan Carlos Lopes DO 08/09/23 8094 Signed By: <Electronically signed by Juan Carlos Lopes DO> 08/09/23 1547 [facility] Work Phone: Discharge summary Author Lon Cisneros [facility] June 10, 2023 2:39pmNote Date/TimeAugust 2022 1:25pmSh[place] [id number] Discharge Summary Signed Patient: Luis Chong III MR#: [id number] : 1955 Acct:[id number] Age/Sex: 68 / M Adm Date: 3 Loc: Room: [address] [place] [address]: Lon Cisneros MD Copies to: MD Louann Lawrence, [facility]- Angel Luis Sanches MD~ Providers Date of Admission: 06/09/23 Date of Discharge: 06/10/23 Discharging Provider: Lon Cisneros Additional Discharging Provider: Lon Cisneros Primary Care Provider: Angel Luis Sanches Consults: 06/09/23 22:54 Consult to Nephrology Routine Discharge Diagnosis (1) End-stage renal disease on peritoneal dialysis: (2) Anemia of renal disease: (3) Hypertension: (4) Syncope: Final Diagnosis Final Discharge Diagnosis: ESRD on peritoneal dialysis Elevated troponin Summary Hospital Course Hospital course: This is a 68-year-old male past medical history significant for ESRD on hemodialysis, hyperlipidemia, gout, glaucoma, GERD, hypertension. Presented to [facility] emergency department last evening after prompting by his family. It seems that on Monday the patient experienced an episode where he was dizzy and felt unwell. He states he was overheated at the time. He denied any chest pain or cardiac symptoms. On work-up in [facility], his high sensitive troponin I was 700 with 2 readings. [facility] with a reported non-STEMI diagnosis despite no EKG changes or symptoms. He has no significant cardiac history otherwise. Troponins here were in the 20s and remained flat. He is renal patient which could contribute to some low-grade elevation. He had echocardiogram Ejection fraction 65 to 70% with moderate LVH,mild LA dilation, mild aortic stenosis. Telemetry with no evidence of any arrhythmias. He was seen by nephrology services for ongoing management of his peritoneal dialysis. He had reported drainage problems that have been ongoing even prior to thispresentation. He uses a cycler at home and indicates he has been heparinizing this, with dosing duetonight. Patient did refuse CT head while inpatient. He was cleared for discharge from medical nephrology standpoint. He was also seen by cardiology services while inpatient. Recommendations for 30-day Holter monitor and outpatient noninvasive ischemic work-up. 40 minutes spent coordinating the discharge of this patient Time Spent with Patient Time spent providing/coordinating discharge services (# min): 40 Diagnostic Studies Completed and Pending Studies Pending studies at discharge: 06/10/23 05:00 US carotid doppler BI IN AM 06/10/23 09:21 EKG [ECG 12 lead ECG] Routine 06/11/23 05:00 BMP [Basic Metabolic Panel] [CHEM] IN AM CBC [Complete Blood Count Auto Diff] IN AM 06/12/23 05:00 BMP [Basic Metabolic Panel] [CHEM] IN AM Labs on day of discharge: 06/10/23 10:20: Troponin I High Sens 41.4 H 06/10/23 10:20: Phosphorus 3.8 06/10/23 05:41: Troponin I High Sens 27.1 H 06/10/23 05:41: PHA Creatinine Clear 11.03, Sodium 141, Potassium 3.4 L, Chloride 104, Carbon Dioxide 28.4, Anion Gap 12.0, BUN 31 H, Creatinine 9.22 H, Est GFR (CKD-EPI) 5.631, Glucose 101 H, Calcium 8.6, Phosphorus 4.0, Magnesium 1.6 L 06/09/23 23:14: Troponin I High Sens 32.9 H 06/09/23 23:14: PHA Creatinine Clear 10.81, Sodium 140, Potassium 3.5, Chloride 103, Carbon Oatwxkb16.0, Anion Gap 11.5, BUN 32 H, Creatinine 9.31 H, Est GFR (CKD-EPI) 5.566, Glucose 102 H, Calcium 8.8, Total Bilirubin 0.4, AST 18, ALT 23, Alkaline Phosphatase 66, Total Protein 7.3, Albumin 2.9 L,Globulin 4.4, Albumin/Globulin Ratio 0.7 Exam Physical Exam Vital Signs: Temp Pulse Resp BP Pulse Ox O2 Del Method 98.8 F 81 16 167/101 H 97 Room Air 06/10/23 11:30 06/10/23 11:30 06/10/23 11:30 06/10/23 11:30 06/10/23 11:30 06/10/23 11:30 Narrative: CONST- alert, in bed, no distress at rest, poor vision CARD- RRR no abnormal heart tones PULM- dimin without wheeze or rhonchi, RA ABD- S/NT, NABS, morbid obesity, PD catheter mid abdomen EXTREM- no edema BLE, calves nontender Discharge Plan Discharge Plan Patient Disposition: Home Activity: No Activity Restriction Diet: Renal Additional Instructions: Report back to emergency room if he continues to have difficult PD fluid draining. Cardiology recommends 30 day cardiac event monitor after discharge. [facility] and you will be provided with a copy of the order at discharge. Please call [facility] Central Scheduling at [phone] on Monday to arrange a time/date. Prescriptions: Continued nbloanxibm-wnhpzndxddekp-jwkb 50-325-40 mg Capsule 1 cap PO Q4H PRN (Reason: Pain) omeprazole 20 mg Capsule,Delayed Release(Dr/Ec) 20 mg PO QAM verapamil 240 mg Capsule,Ext Rel. Pellets 24 Hr 240 mg PO QAM furosemide 40 mg tablet 80 mg PO BID Patient Comments: TAKE 1 TABLET BY MOUTH TWICE A DAY atorvastatin 80 mg tablet 80 mg PO QHS Patient Comments: TAKE 1 TABLET BY MOUTH EVERY DAY allopurinol 100 mg tablet 100 mg PO QAM Patient Comments: TAKE 1 TABLET BY MOUTH EVERY DAY sodium bicarbonate 650 mg tablet 650 mg PO TID Patient Comments: TAKE 1 TABLET BY MOUTH THREE TIMES A DAY ferrous sulfate 325 mg (65 mg iron) tablet 325 mg PO QAM Patient Comments: TAKE 1 TABLET BY MOUTH EVERY DAY calcitriol 0.5 mcg capsule 0.5 mcg PO QAM Patient Comments: TAKE 1 CAPSULE BY MOUTH EVERY DAY FOR 90 DAYS brimonidine 0.2 % drops 1 drp Eye-Both BID Patient Comments: INSTILL 1 DROP INTO BOTH EYES TWICE A DAY DIRECTED gabapentin 300 mg capsule 300 mg PO QHS Patient Comments: TAKE 1 CAPSULE BY MOUTH THREE TIMES A DAY hydralazine 50 mg tablet 50 mg PO BID Patient Comments: TAKE 1 TABLET BY MOUTH TWICE A DAY WITH FOOD timolol maleate 0.5 % drops 1 drp Eye-Both BID Patient Comments: INSTILL 1 DROP INTO BOTH EYES TWICE A DAY DIRECTED fluticasone propionate 50 mcg/actuation spray,suspension 1 spray INTRANASAL QAM Patient Comments: 2 (TWO) SPRAY DAILY dorzolamide 2 % drops 1 drp Eye-Both BID Patient Comments: INSTILL 1 DROP INTO BOTH EYES TWICE A DAY DIRECTED hydrocodone-acetaminophen 5-325 mg tablet 1 tab PO Q6H PRN (Reason: pain) 7 Days Qty: 28 0RF Other Ambulatory Orders: [place] cardiac event monitor (Routine) Timeframe: [id number] Location: Determined by Patient Ordered By: Louann Reynolds Follow Up: Clau Sanchez MD [Active Staff] - (Call office on Monday to schedule follow-up with Cardiology. ) Angel Luis Sanches MD [Primary Care Provider] - (Call office on Monday to schedule follow-up with your Primary Care Provide rin 3-5 days. ) Documented By: TRIPP Mitchell 3 1318 Signed By: <Electronically signed by TRIPP Reynolds> 06/10/23 1415 <Electronically signed by Lon Cisneros MD> 06/10/[address] [facility] Work Phone: Discharge summary Author Jimenez [facility]Rod[facility]Sam[facility] August 11, 2023 1:19pmNote Date/TimeOct2022 1:19pmSharon [place] [id number] Discharge Summary Signed Patient: Luis Chong III MR#: [id number] : 1955 Acct:[id number] Age/Sex: 68 / M Adm Date: 3 Loc: Room: [address] [place] [address]: Jimenez Rodríguez DO Copies to: DO Angel Luis Romero MD~ Providers Date of Discharge: 08/11/23 Discharging Provider: Jimenez Rodríguez Primary Care Provider: Angel Luis Sanches Consults: 08/09/23 15:07 Consult to Neurology Routine 08/09/23 15:58 Consult to Nephrology Routine 08/10/23 11:34 Consult to Speech Therapy Routine Discharge Diagnosis (1) End-stage renal disease on peritoneal dialysis: (2) Hypertensive chronic kidney disease with stage 1 through stage 4 chronic kidney disease, or unspecified chronic kidney disease: (3) Hyperkalemia: (4) Anemia of renal disease: (5) Acute cerebrovascular accident (CVA): Final Diagnosis Final Discharge Diagnosis: ESRD on PD with hyperkalemia, obstructed PD catheter, Cranial nerve 7 palsy, HTNurgency Summary Hospital Course Hospital course: 68 y/o M with PMHx of HTN/HLD, ESRD on daily PD who presents today with slurred speech and R sided facial droop which he awoke with this AM. Last well known wasaround 8pm last night. Pt states he hashad previous facial droop when he had Hutchinson's Palsy, but at that time was not associated wtih slurred speech so he cameto the ED where workup was largely unremarkable including CT/CTA head/neck. Uponexam, pt with obvious slurred speech and R sided facial droop. Pt states he has claustrophobia and does not want an MRI, despite telling him we have medicationsthat can calm him down. Pt agreeable to admission for CVA workup. MRI ordered along with ativan for claustrophobia and neurology and nephrology consulted. Neurology examined pt and determined that his symptoms were likely a recurrence of cranial nerve 7 palsy ([place] palsy) but could not give a definitive reason for the recurrence and recommended MRI which pt refused. Pt was agreeable, afterdiscussion with myself and neurology, to have anopen MRI scheduled at a later date. Neurology recommended 7 days of prednisone. Pt was set to go home, but BP spiked into the 200s and PD catheter obstructed. Nephrology ordered heparin to unblock catheter and catheter started working again. Labs showed hyperkalemia on08/10 for which [facility]. BP meds were adjusted, increasing hisPO hydralazine 50mg BID to 100mg TID and BP improved. Pt stable for discharge on08/11 on PO prednisone and new BP regimen and discharged in stable andimproved condition to follow up with neurology to further discuss scheduling outpatient open MRI. Condition Condition at Discharge: Stable Status at Discharge Overall status at discharge: patient is progressing back to baseline Time Spent with Patient Time spent providing/coordinating discharge services (# min): 45 Diagnostic Studies Completed and Pending Studies Pending studies at discharge: 08/12/23 05:00 Basic Metabolic Panel [CHEM] IN AM Complete Blood Count Auto Diff IN AM 08/13/23 05:00 Basic Metabolic Panel [CHEM] IN AM Complete Blood Count Auto Diff IN AM 08/14/23 05:00 Basic Metabolic Panel [CHEM] IN AM Complete Blood Count Auto Diff IN AM 08/15/23 05:00 Complete Blood Count Auto Diff IN AM 08/16/23 05:00 Complete Blood Count Auto Diff IN AM 08/17/23 05:00 Complete Blood Count Auto Diff IN AM 08/18/23 05:00 Complete Blood Count Auto Diff IN AM 08/19/23 05:00 Complete Blood Count Auto Diff IN AM Labs on day of discharge: 08/11/23 07:54: PHA Creatinine Clear 9.93, Sodium 136, Potassium 4.5, Chloride 100, Carbon Dioxide 25.1, Anion Gap 15.4 H, BUN 40 H, Creatinine 10.48 H, Est GFR (CKD-EPI) 4.829, Glucose 117 H, Calcium 9.9 08/11/23 07:54: Corrected WBC 13.5 H, Uncorrected WBC Count 13.5 H, RBC 4.14, Hgb 12.0 L, Hct 37.2 L, MCV 89.9, MCH 29.0, MCHC 32.3 L, RDW 19.0 H, Plt Count 278, MPV 8.3, Neut % (Auto) 82.0, Lymph % (Auto) 10.1, [place] % (Auto) 7.3, Eos % (Auto) 0.2, Baso % (Auto) 0.4, Nucleat RBC Rel Count 0.1, Neut# (Auto) 11.1 H, Lymph # (Auto) 1.4, [place] # (Auto) 1.0 H, Eos # (Auto) 0.0, Baso # (Auto) 0.1 Exam Physical Exam Vital Signs: Temp Pulse Resp BP Pulse Ox O2 Del Method 97.8 F 85 18 164/97 H 97 Room Air 08/11/23 11:17 08/11/23 11:17 08/11/23 11:17 08/11/23 11:17 08/11/23 11:17 08/11/23 11:17 Narrative: General: Awake and alert. Sitting in bed comfortably, dysarthria and R sided facial and R eye droop HEENT: Normocephalic, atraumatic, trachea midline Respiratory: good inspiratory effort, no wheeze, no rhonchi, no crackles Cardiovascular: RRR, normal S1 and S2 Abdominal: soft, obese, no tenderness, no rebound, no guarding, +BS Skin: warm, dry, no lesions or rashes MSK: no edema Neurologic: No focal deficits other than listed above Psych: appropriate affect Discharge Plan Discharge Plan Patient Disposition: Home Activity: No Activity Restriction Diet: Renal and Other Comment: See speech therapy recommendations below. Additional Instructions: Continue peritoneal dialysis treatments as before. Speech therapy recommendations: *Mechanical soft solids *Ground meats *Extra bowl of gravy *Take pills whole or crushed in applesauce *No straws *Take small bites and sips Stand Alone Forms: Work/School Release Form Prescriptions: New prednisone 20 mg Tablet 60 mg PO DAILY 7 Days Qty: 21 0RF hydralazine 50 mg Tablet 100 mg PO TID 30 Days Qty: 180 0RF Continued sevelamer carbonate 800 mg tablet 800 mg PO TIDWMEAL Patient Comments: TAKE 1 TABLET BY MOUTH THREE TIMES A DAY WITH MEALS latanoprost 0.005 % drops 1 drp Eye-Left HS Patient Comments: INSTILL 1 DROP INTO LEFT EYE AT BEDTIME potassium chloride [Klor-Con M20] 20 mEq tablet,ER particles/crystals 20 meq PO BID Patient Comments: TAKE 1 TABLET BY MOUTH TWICE A DAY magnesium oxide 400 mg (241.3 mg magnesium) tablet 400 mg PO DAILY Patient Comments: TAKE ONE TABLET BY MOUTH ONCE A DAY pilocarpine HCl 2 % drops 1 drp Eye-Left BID Patient Comments: INSTILL 1 DROP INTO LEFT EYE TWICE A DAY Dialyvite 100-1 mg tablet 1 tab PO DAILY Patient Comments: TAKE 1 TABLET BY MOUTH EVERY DAY polyethylene glycol 3350 17 gram/dose powder 17 g PO DAILY Patient Comments: MIX 1 SCOOP (17G) IN LIQUID AND DRINK ONCE DAILY DIRECTED sacvanueam-ugnprnwhzuodf-auar 50-325-40 mg Capsule 1 cap PO Q4H PRN (Reason: Pain) omeprazole 20 mg Capsule,Delayed Release(Dr/Ec) 40 mg PO QAM verapamil 240 mg Capsule,Ext Rel. Pellets 24 Hr 240 mg PO QAM furosemide 40 mg tablet 80 mg PO BID Patient Comments: TAKE 1 TABLET BY MOUTH TWICE A DAY atorvastatin 80 mg tablet 80 mg PO QHS Patient Comments: TAKE 1 TABLET BY MOUTH EVERY DAY allopurinol 100 mg tablet 100 mg PO QAM Patient Comments: TAKE 1 TABLET BY MOUTH EVERY DAY calcitriol 0.5 mcg capsule 0.5 mcg PO QAM Patient Comments: TAKE 1 CAPSULE BY MOUTH EVERY DAY FOR 90 DAYS brimonidine 0.2 % drops 1 drp Eye-Both BID Patient Comments: INSTILL 1 DROP INTO BOTH EYES TWICE A DAY DIRECTED gabapentin 300 mg capsule 300 mg PO QHS Patient Comments: TAKE 1 CAPSULE BY MOUTH THREE TIMES A DAY timolol maleate 0.5 % drops 1 drp Eye-Both BID Patient Comments: INSTILL 1 DROP INTO BOTH EYES TWICE A DAY DIRECTED dorzolamide 2 % drops 1 drp Eye-Both BID Patient Comments: INSTILL 1 DROP INTO BOTH EYES TWICE A DAY DIRECTED Discontinued hydralazine 50 mg tablet 50 mg PO BID Patient Comments: TAKE 1 TABLET BY MOUTH TWICE A DAY WITH FOOD Follow Up: [facility] [Outside] (The office is currently closed. Please call the office for a follow-up appointment. ) Angel Luis Sanches MD [Primary Care Provider] - (The office is aware of your hospital stay and need for follow up, the office will call you to schedule. Please call the office if you have not heard from them by the next business day.) Documented By: Jimenez Rodríguez DO 08/11/23 131 5 Signed By: <Electronically signed by Jimenez Rodríguez DO> 08/11/[address] [facility] Work Phone: Evaluation noteNo InformationNort Rank By Search Other Evaluation noteNo assessment information available [facility] Work Phone: Evaluation note* Diagnosis Onset Date Resolution Status Anemia of renal disease acuteCKD (chronic kidney disease) stage 5, GFR less than 15 ml/minacuteElevated troponinacuteEnd-stage renal disease on peritoneal dialysisacuteHyperlipidemia acuteHypertensionacutePeritoneal dialysis catheter in placeacuteSyncopeacute [facility] Work Phone: Evaluation note* Diagnosis Onset Date Resolution Status Anemia of renal disease acuteCKD (chronic kidney disease) stage 5, GFR less than 15 ml/minacuteElevated troponinacuteEnd-stage renal disease on peritoneal dialysisacuteHyperlipidemia acuteHypertensionacutePeritoneal dialysis catheter in placeacuteSyncopeacute Acute cerebrovascular accident (CVA)acuteDysarthriaacuteFacial droopacute Hypertensive urgencyacute [facility] Work Phone: Evaluation note* Diagnosis Onset Date Resolution Status Anemia of renal disease acuteCKD (chronic kidney disease) stage 5, GFR less than 15 ml/minacuteElevated troponinacuteEnd-stage renal disease on peritoneal dialysisacuteHyperlipidemia acuteHypertensionacutePeritoneal dialysis catheter in placeacuteSyncopeacute Acute cerebrovascular accident (CVA)acuteAnemia of renal diseaseacuteDysarthria acuteEnd-stage renal disease on peritoneal dialysisacuteFacial droopacute [id number] urgencyacute [facility] Work Phone: Evaluation note* Diagnosis Syncope, unspecified syncope type- Primary Nonrheumatic aortic valve stenosis Dilated aortic root (CMS/HCC) Thoracic aneurysm without mention of rupture Dialysis patient (CMS/HCC) Renal dialysis status Essential hypertension Unspecified essential hypertension Cerebrovascular accident (CVA), unspecified mechanism (CMS/HCC) Gout, unspecified cause, unspecified chronicity, unspecified site BMI 39.0-39.9,adult documented in this encounter [facility] Work Phone: Evaluation note* Diagnosis Onset Date Resolution Status Anemia of renal disease acuteEnd-stage renal disease on peritoneal [id number] DysarthriaresolvedFacial droopresolvedHyperkalemiaresolvedHypertensive urgency resolved(HFpEF) heart failure with preserved ejection fractionacuteAbdominal painacuteAnemia of renal diseaseacuteAortic valve endocarditisacuteBacteremia due to Staphylococcus aureusacuteEnd-stage renal disease on peritoneal dialysis wlcsk[id number] dialysis catheter in placeacuteRenal mass of unknown natureacuteSevere sepsisacute [facility] Work Phone: Evaluation note* Diagnosis Peritoneal dialysis status ([facility])- Primary Renal dialysis status Essential hypertension, benign ([facility]) Essential hypertension, benign Chronic cluster headache, not intractable End stage renal disease ([facility]) End stage renal disease [facility] Diagnosis Onset Date Resolution Status (HFpEF) heart failure with preserved eje ction fraction acuteAnemia of renal diseaseacuteEnd-stage renal disease on peritoneal dialysis acuteLeukocytosisacutePeritoneal dialysis catheter dysfunctionacuteVolume overloadacute [facility] Work Phone: Evaluation note* Diagnosis Onset Date Resolution Status (HFpEF) heart failure with preserved eje ction fraction acuteAnemia of renal diseaseacuteEnd-stage renal disease on peritoneal dialysis [id number]zzrnoxaaiJulfdijiuu dialysis catheter dysfunctionacuteVolume overloadacute [facility] Work Phone: Evaluation note* Diagnosis Bacteremia- Primary Severe sepsis without septic shock ([facility]) Methicillin susceptible Staphylococcus aureus infection as the cause of diseases classified elsewhere ESRD (end stage renal disease) on dialysis ([facility]) End stage renal disease [facility] Diagnosis Bacteremia- Primary Severe sepsis without septic shock ([facility]) Methicillin susceptible Staphylococcus aureus infection as the cause of diseases classified elsewhere ESRD (end stage renal disease) on dialysis ([facility]) End stage renal disease documented in [facility] encounter [facility]* Diagnosis Severe sepsis without septic shock ([facility])- Primary Methicillin susceptible Staphylococcus aureus infection as the cause of diseases classified elsewhere Bacteremia ESRD (end stage renal disease) on dialysis ([facility]) End stage renal disease documented in this encounter [facility]* Diagnosis Bacteremia- Primary [facility] Diagnosis Severe sepsis without septic shock ([facility])- Primary Methicillin susceptible Staphylococcus aureus infection as the cause of diseases classified elsewhere Bacteremia ESRD (end stage renal disease) on dialysis ([facility]) End stage renal disease [facility]* Diagnosis Bacteremia- Primary Severe sepsis without septic shock ([facility]) Methicillin susceptible Staphylococcus aureus infection as the cause of diseases classified elsewhere ESRD (end stage renal disease) on dialysis ([facility]) End stage renal disease [facility]* Diagnosis Severe sepsis without septic shock ([facility])- Primary Methicillin susceptible Staphylococcus aureus infection as the cause of diseases classified elsewhere Bacteremia ESRD (end stage renal disease) on dialysis ([facility]) End stage renal disease [facility]* Diagnosis Bacteremia- Primary documented in this encounter [facility] Author Jimenez Rodríguez [facility] August 09, 2023 4:08pmNote Date/TimeOct2022 4:01pmCl[place] [address] Hospitalist H&P Signed Patient: Luis Chong III MR#: [id number] : 1955 Acct:[id number] Age/Sex: 68 / M Adm Date: 3 Loc: ER Room: Type: [facility] ER Attending Dr: Copies to: MD Jimenez Florence DO Marc Naderer, MD~ HPI DATE OF EXAMINATION: 08/09/23 CHIEF COMPLAINT: slurred speech, facial droop HISTORY OF PRESENT ILLNESS: Pt is a 68 y/o M with PMHx of HTN/HLD, ESRD on daily PD who presents today with slurred speech and R sided facial droop which he awoke with this AM. Last well known was around 8pm last night. Pt states he has had previous facial droop whenhe had Hutchinson's Palsy, but at that time was not associated wtih slurred speech so he came to the ED where workup was largely unremarkable including CT/CTA head/neck. Upon exam, pt with obvious slurred speech and R sided facial droop. Pt states he has claustrophobia and does not want an MRI, despite telling him wehave medications that can calm him down. Pt agreeable to admission for CVA workup. MRI ordered along with ativan for claustrophobia and neurology and nephrology consulted. Review of Systems Review of Systems All other systems reviewed & are negative unless noted below or in HPI [facility] Medical History (Updated 08/09/23 @ 16:05 by Jimenez Rodríguez DO) Anemia Hutchinson's palsy Cluster headache Diverticulitis GERD (gastroesophageal reflux disease) Glaucoma Gout History of kidney cancer Hyperlipidemia Hypertension Kidney failure Surgical History History of hernia repair History of nephrectomy partial, tumor removed Family History (Updated 06/10/23 @ 00:13 by Ai Vasquez APRN) Sister COPD (chronic obstructive pulmonary disease) Brain cancer Sister COPD (chronic obstructive pulmonary disease) Mother CHF (congestive heart failure) Diabetes mellitus, type 2 Kidney failure Grandparent Stroke Social History Smoking Status: Never smoker Substance Use Type: None Meds Medications and Allergies Allergies cephalexin [From Keflex] Adverse Reaction (Verified 08/09/23 11:19) Itching Home Medications vmzlfxxdcm-yfekxbagroqys-mevmqdbd 50 mg-325 mg-40 mg capsule 1 cap PO Q4H PRN Pain 07/14/18 [History Confirmed 09/29/22] omeprazole 20 mg capsule,delayed release 20 mg PO QAM 07/14/18 [History Confirmed 06/09/23] verapamil 240 mg 24 hr capsule,extended release 240 mg PO QAM 07/14/18 [History Confirmed 06/09/23] allopurinol 100 mg tablet 100 mg PO QAM 09/27/22 [History Confirmed 06/09/23] atorvastatin 80 mg tablet 80 mg PO QHS 09/27/22 [History Confirmed 06/09/23] brimonidine 0.2 % eye drops 1 drp Eye-Both BID 09/27/22 [History Confirmed 06/09/23] calcitriol 0.5 mcg capsule 0.5 mcg PO QAM 09/27/22 [History Confirmed 06/09/23] dorzolamide 2 % eye drops 1 drp Eye-Both BID 09/27/22 [History Confirmed 06/09/23] ferrous sulfate 325 mg (65 mg iron) tablet 325 mg PO QAM 09/27/22 [History Confirmed 06/09/23] fluticasone propionate 50 mcg/actuation nasal spray,suspension 1 spray intranasal QAM 09/27/22 [History Confirmed 09/29/22] furosemide 40 mg tablet 80 mg PO BID 09/27/22 [History Confirmed 06/09/23] gabapentin 300 mg capsule 300 mg PO QHS 09/27/22 [History Confirmed 06/09/23] hydralazine 50 mg tablet 50 mg PO BID 09/27/22 [History Confirmed 06/09/23] sodium bicarbonate 650 mg tablet 650 mg PO TID 09/27/22 [History Confirmed 09/29/22] timolol maleate 0.5 % eye drops 1 drp Eye-Both BID 09/27/22 [History Confirmed 06/09/23] hydrocodone 5 mg-acetaminophen 325 mg tablet 1 tab PO Q6H PRN pain 7 days #28 tabs 09/29/22 [Rx] Exam Physical Exam Vital Signs: Temp Pulse Resp BP Pulse Ox O2 Del Method 98.6 F 78 18 175/94 H 96 Room Air 08/09/23 11:18 08/09/23 13:06 08/09/23 13:06 08/09/23 13:06 08/09/23 13:06 08/09/23 13:06 Narrative: General: Awake and alert. Lying in bed comfortably, dysarthria and R sided facial and R eye droop HEENT: Normocephalic, atraumatic, trachea midline Respiratory: good inspiratory effort, no wheeze, no rhonchi, no crackles Cardiovascular: RRR, normal S1 and S2 Abdominal: soft, obese, no tenderness, no rebound, no guarding, +BS Skin: warm, dry, no lesions or rashes MSK: no edema Neurologic: No focal deficits other than listed above Psych: appropriate affect Results Lab Results Labs: Laboratory Last Values Corrected WBC 7.8 X10E3/uL (4.1-10.5) 08/09/23 11:31 Uncorrected WBC Count 7.8 x10E3/uL (4.1-10.5) 08/09/23 11:31 RBC 3.85 X10E6/uL (3.90-5.60) L 08/09/23 11:31 Hgb 11.3 g/dL (13.0-17.0) L 08/09/23 11:31 Hct 34.8 % (38.8-50.0) L 08/09/23 11:31 MCV 90.5 fl (83.5-101) 08/09/23 11:31 MCH 29.4 pg (27.5-35.2) 08/09/23 11:31 MCHC 32.5 g/dL (32.5-35.6) 08/09/23 11:31 RDW 18.0 % (12.0-14.8) H 08/09/23 11:31 Plt Count 214 x10E3/uL (150-450) 08/09/23 11:31 MPV 7.7 fl (6.6-10.1) 08/09/23 11:31 Neut % (Auto) 79.1 % (.) 08/09/23 11:31 Lymph % (Auto) 11.1 % (.) 08/09/23 11:31 [place] % (Auto) 6.6 % (.) 08/09/23 11:31 Eos % (Auto) 2.3 % (.) 08/09/23 11:31 Baso % (Auto) 0.9 % (.) 08/09/23 11:31 Nucleat RBC Rel Count 0.0 /100 WBC (0-0.5) 08/09/23 11:31 Neut # (Auto) 6.2 x10E3/uL (1.8-7.7) 08/09/23 11:31 Lymph # (Auto) 0.9 x10E3/uL (1.00-4.8) L 08/09/23 11:31 [place] # (Auto) 0.5 x10E3/uL (0.0-0.8) 08/09/23 11:31 Eos # (Auto) 0.2 x10E3/uL (0.0-0.45) 08/09/23 11:31 Baso # (Auto) 0.1 x10E3/uL (0.0-0.2) 08/09/23 11:31 Monocyte Dist Width 17.11 % (0.00-20.00) 08/09/23 11:31 PT 12.6 Seconds (9.0-12.9) 08/09/23 11:31 INR 1.1 08/09/23 11:31 APTT 30.7 Seconds (25.1-36.5) 08/09/23 11:31 PHA Creatinine Clear 9.80 08/09/23 11:31 Sodium 139 mmol/L (136-145) 08/09/23 11:31 Potassium 4.7 mmol/L (3.5-5.1) 08/09/23 11:31 Chloride 103 mmol/L (98-107) 08/09/23 11:31 Carbon Dioxide 27.6 mmol/L (21.0-31.0) 08/09/23 11:31 Anion Gap 13.1 mEq/L (6.0-15.0) 08/09/23 11:31 BUN 31 mg/dL (7-25) H 08/09/23 11:31 Creatinine 10.07 mg/dL (0.70-1.30) H 08/09/23 11:31 POC Creatinine 10.9 mg/dl (0.6-1.3) H 08/09/23 11:34 Est GFR (CKD-EPI) 5.066 mL/Min 08/09/23 11:31 Glucose 115 mg/dL (70-100) H 08/09/23 11:31 POC Glucose 107 mg/dl 08/09/23 11:30 Calcium 9.7 mg/dL (8.6-10.3) 08/09/23 11:31 Total Creatine Kinase 38 U/L (30-223) 08/09/23 11:31 Troponin I High Sens 26.2 pg/mL (0.0-20.0) H 08/09/23 11:31 Urine Color Yellow (Yellow) 08/09/23 13:00 Urine Appearance Clear (Clear) 08/09/23 13:00 Urine pH 8.5 (5.0-9.0) 08/09/23 13:00 Ur Specific [place] 1.010 (1.001-1.030) 08/09/23 13:00 Urine Protein 30 mg/dL (Negative) H 08/09/23 13:00 Urine Glucose (UA) Normal mg/dL (Normal) 08/09/23 13:00 Urine Ketones Negative (Negative) 08/09/23 13:00 Urine Occult Blood Negative (Negative) 08/09/23 13:00 Urine Nitrite Negative (Negative) 08/09/23 13:00 Urine Bilirubin Negative (Negative) 08/09/23 13:00 Urine Urobilinogen Normal mg/dL (Normal) 08/09/23 13:00 Ur Leukocyte Esterase Negative (Negative) 08/09/23 13:00 Urine RBC None seen /HPF (0-4) 08/09/23 13:00 Urine WBC 0-1 /HPF (0-4) 08/09/23 13:00 Ur Squamous Epith Cells None seen /HPF (0-2) 08/09/23 13:00 Urine Bacteria None seen (None Seen) 08/09/23 13:00 Hyaline Casts None seen /LPF (0-8) 08/09/23 13:00 Assessment & Plan Assessment/Plan (1) Facial droop: (2) Dysarthria: (3) Hypertensive urgency: Plan # R facial/eye droop with slurred speech - woke up with symptoms. LWK 8pm on 08/08 - out of window for TNK. Lower suspicion of Hutchinson's Palsy given dysarthria and elevated BP on arrival - rule out CVA/TIA. 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 MRI ordered, but pt may refuse. Cont asa/statin. Neurology and nephrology consulted. Pt/OT IP vs OBS Justification Based on differential dx, clinical care plan, and risk of adverse events, if untreated, in my clinical judgement this patient requires an acute care setting as: OBSERVATION because of an expectation of an under 2 midnight stay. Estimated length of stay (# of days): 2 Time Spent With Patient (min): 45 Documented By: Jimenez Rodríguez DO 08/09/23 160 0 Signed By: <Electronically signed by Jimenez Rodríguez DO> 08/09/[address] [facility] Work Phone: History general Narrative - Reported* Type Description Date Medical History Hypertension Medical HistoryHypercholesteremiaMedical HistoryGoutMedical HistoryRenal cancer, leftSurgical Historykidney biposySurgical Historyhernia repairSurgical History Malignant tumor on left [id number] Historyleft cataract02/2022 Hospitalization Historysee aboveHospitalization HistoryACUTE KIDNEY INJURY-2017 [place] Other History general Narrative - Reported* Type Description Date Medical History Hypertension Medical HistoryHypercholesteremiaMedical HistoryGoutMedical HistoryRenal cancer, leftSurgical Historykidney biposySurgical Historyhernia repairSurgical History Malignant tumor on left [id number] Historysee above Hospitalization HistoryACUTE KIDNEY INJURY-2017 [place] Other Hospital Discharge instructions Additional Instructions Continue peritoneal dialysis treatments as before. Speech therapy recommendations: *Mechanical soft solids *Ground meats *Extra bowl of gravy *Take pills whole or crushed in applesauce *No straws *Take small bites and [facility]ips[facility] Work Phone: Hospital Discharge instructions Additional Instructions Please call and follow up with your Peritoneal Dialysis nurse.[facility] Work Phone: InstructionsNot on filedocumented in this encounter [facility]Not on filedocumented in this encounter [facility]ructionsNot on filedocumented in this encounter [facility]ructionsNot on filedocumented in this encounter [facility] SystemInstructionsNot on filedocumented in this encounter [facility] SystemProgress note Author Reece JuárezWVUMedicine [facility] August 11, 2023 12:41pmNote Date/TimeOct2022 12:41pmCl[place] [address] Nephrology Progress Note Signed Patient: Luis Chong III MR#: [id number] : 1955 Acct:[id number] Age/Sex: 68 / M Adm Date: 3 Loc: Room: [address] [place] [address] Type: ADM IN Attending Dr: Jimenez Rodríguez DO Copies to: ~ Date of Service: 08/11/2023 Subjective Subjective Narrative: 68-year-old -Nepalese male patient with a past medical history of end- stage renal disease onPD follows with Dr. Winchester in [facility], renal cell carcinoma status post nephrectomy, gout hypertension, anxiety, hyperlipidemia. Patient woke up yesterday with slurred speech and left facial drop. patient has history of Hutchinson's palsy . Patient presented to outside emergency room where he was transferred to our hospital since he has end-stage renal disease on peritoneal dialysis. Patient does 4 exchanges of PD fluid every night through cycler. He alternates 2.5% dextrose with 1.5 dextrose. CTA of neck and brain reveals no acute occlusion, dissection or critical stenosis. Patient was evaluated by neurology service this morning and started on prednisone for possible Hutchinson's palsy. Patientdeclined MRI due to claustrophobia Last night. The nurse has not been able to drain only inserted PD fluid. Patient uses IV heparin asneeded for drainage difficulty. Patient denied constipation. Noted high blood pressure this morning. Patient on hydralazine 50 mg twice daily, Lasix 80 mg twicedaily, verapamil 240 mg daily. Patient is frustrated about PD catheter ratio. He is asking to be discharged home. Family at bedside. Interval history: Patient was seen and examined at bedside. PD fluid drainage difficulty has resolved with adding heparin to intraperitoneal fluid Patient feeling better. He is calm today. No nausea no vomiting. No shortnessof breath. Continues to have right facial drop. On prednisone for possible Hutchinson's palsy. Noted high blood pressure. Hydralazine dose was increased to 100mg 3 times daily yesterday. Patient also on Lasix 80 mg twice daily Exam Physical Exam Vital Signs: Temp Pulse Resp BP Pulse Ox O2 Del Method 97.8 F 85 18 164/97 H 97 Room Air 08/11/23 11:17 08/11/23 11:17 08/11/23 11:17 08/11/23 11:17 08/11/23 11:17 08/11/23 11:17 Narrative: General: No acute distress Head :atraumatic normocephalic Eyes: PERRLA. Neck: no JVD no bruit. Heart: S1-S2. RRR Respiratory: Clear to auscultation. No wheezing. No crackles Abdomen: Soft, positive bowel sounds,no tenderness. Neurology: Awake alert oriented x3. No focal deficits Extremity. No cyanosis. No edema Skin: No skin rash Objective Intake and Output I&O: Intake & Output 08/08/23 08/09/23 08/10/23 08/11/23 23:59 23:59 23:59 23:59 Intake Total 2660 / 2660 7790 / 7790 4240 / 4240 Output Total 7500 / 7500 1999 / 1999 Balance 2660 / 2660 290 / 290 2240 / 2240 Weight 132 kg 147.5 kg 147.7 kg Meds and Allergies Meds: Active Medications Acetaminophen (Acetaminophen 325 Mg Tablet) 650 mg PO Q6HR PRN PRN Reason: Pain Scale 1 - 3 or fever Stop: 08/08/24 15:06 Hydrocodone Bitart/Acetaminophen (Hydrocodone/Acetaminophen 5-325 Mg Tablet) 1 tab PO Q6H PRN PRN Reason: pain Allopurinol (Allopurinol 100 Mg Tablet) 100 mg PO QAM RYAN Stop: 08/09/24 08:59 Last Admin: 08/11/23 08:31 Dose: 100 mg Aspirin (Aspirin 81 Mg Tablet.Dr) 81 mg PO DAILY RYAN Stop: 08/08/24 15:14 Last Admin: 08/11/23 08:31 Dose: 81 mg Atorvastatin Calcium (Atorvastatin 80 Mg Tablet) 80 mg PO QPM RYAN Stop: 08/08/24 20:59 Last Admin: 08/10/23 21:33 Dose: 80 mg Brimonidine Tartrate (Brimonidine 0.15% Op Soln 100 Drops/5 Ml Drops) 1 drops EYE-BOTH BID RYAN Stop: 08/08/24 20:59 Last Admin: 08/11/23 08:31 Dose: 1 drops Calcitriol (Calcitriol 0.5 Mcg Capsule) 0.5 mcg PO QAM RYAN Stop: 08/09/24 08:59 Last Admin: 08/11/23 08:32 Dose: 0.5 mcg Furosemide (Furosemide 80 Mg Tablet) 80 mg PO BID RYAN Stop: 08/08/24 20:59 Last Admin: 08/11/23 08:32 Dose: 80 mg Gabapentin (Gabapentin 300 Mg Capsule) 300 mg PO QHS RYAN Stop: 08/08/24 21:59 Last Admin: 08/10/23 21:33 Dose: 300 mg Heparin Sodium (Porcine) (Heparin 5,000 Unit/Ml Vial) 5,000 unit SUBCUT Q8HR RYAN Stop: 08/09/24 05:59 Last Admin: 08/11/23 05:52 Dose: 5,000 unit Heparin Sodium (Porcine) (Heparin 1,000 Unit/Ml) 2,000 unit INTRAPERIT Q4H PRN PRN Reason: physician order Stop: 08/09/24 17:29 Last Admin: 08/11/23 09:13 Dose: 2,000 unit Hydralazine HCl (Hydralazine 20 Mg/Ml Vial) 10 mg IV-PUSH Q4H PRN PRN Reason: Hypertension Stop: 08/08/24 19:52 Last Admin: 08/11/23 04:18 Dose: 10 mg Hydralazine HCl (Hydralazine 50 Mg Tablet) 100 mg PO TID RYAN Stop: 08/09/24 14:29 Last Admin: 08/11/23 08:32 Dose: 100 mg Latanoprost (Latanoprost 0.005% Op Soln 50 Drops/2.5 Ml Bottle) 1 drops EYE-LEFT HS RYAN Stop: 08/08/24 21:59 Last Admin: 08/10/23 21:34 Dose: 1 drops Lorazepam (Lorazepam 2 Mg/Ml Vial) 1 mg IV-PUSH Q6H PRN PRN Reason: Agitation Stop: 02/05/24 11:39 Magnesium Oxide (Magnesium Oxide 400 Mg Tablet) 400 mg PO DAILY RYAN Stop: 08/09/24 08:59 Last Admin: 08/11/23 08:32 Dose: 400 mg Metoprolol Tartrate (Metoprolol Tartrate 5 Mg/5 Ml Vial) 5 mg IV-PUSH Q4H PRN PRN Reason: Blood Pressure Stop: 08/08/24 19:52 Last Admin: 08/11/23 05:52 Dose: 5 mg Ondansetron HCl (Ondansetron 4 Mg/2 Ml Vial) 4 mg IV-PUSH Q8H PRN PRN Reason: Nausea And Vomiting Stop: 08/08/24 15:06 Pantoprazole Sodium (Pantoprazole 40 Mg Tablet.Dr) 40 mg PO DAILY RYAN Stop: 08/09/24 08:59 Last Admin: 08/11/23 08:32 Dose: 40 mg Pilocarpine HCl (Pilocarpine 2% Op Soln 300 Drops/15 Ml Bottle) 1 drops EYE-LEFT BID RYAN Stop: 08/08/24 20:59 Last Admin: 08/11/23 08:32 Dose: 1 drops Polyethylene Glycol (Polyethylene Glycol 3350 17 Gm Powd.Pack) 17 gm PO DAILY RYAN Stop: 08/09/24 08:59 Last Admin: 08/11/23 08:42 Dose: Not Given Prednisone (Prednisone 20 Mg Tablet) 60 mg PO DAILY RYAN Stop: 08/16/23 15:44 Last Admin: 08/11/23 08:33 Dose: 60 mg Sevelamer Carbonate (Sevelamer Carbonate 800 Mg Tablet) 800 mg PO TID.WITH.MEALS RYAN Stop: 08/09/24 07:59 Last Admin: 08/11/23 12:32 Dose: 800 mg Sodium Chloride (Sodium Chloride 0.9 % 10 Ml Syringe) 0 ml IV-PUSH PRN PRN PRN Reason: Flush Stop: 08/08/24 11:17 Last Admin: 08/10/23 06:17 Dose: 10 ml Sodium Chloride (Sodium Chloride 0.9 % 10 Ml Vial.Pf) 10 ml INJECTION Q6H PRN PRN Reason: Ativan dilution Stop: 08/08/24 11:39 Sodium Chloride (Sodium Chloride 0.9 % 10 Ml Vial.Pf) 10 ml INJECTION Q4H PRN PRN Reason: Ativan dilution Stop: 08/08/24 15:58 Sodium Zirconium Cyclosilicate (Sodium Zirconium Cyclosilicate 10 Gm Powd.Pack) 10 gm PO TID RYAN Stop: 08/12/23 14:01 Last Admin: 08/11/23 08:34 Dose: 10 gm Timolol Maleate (Timolol Mal 0.5% Op Soln 100 Drops/5 Ml Bottle) 1 drops EYE- BOTH BID RYAN Stop: 08/08/24 20:59 Last Admin: 08/11/23 08:34 Dose: 1 drops Verapamil HCl (Verapamil Er.24hr 120 Mg Cap24h.Pel) 240 mg PO QAM RYAN Stop: 08/09/24 08:59 Last Admin: 08/11/23 08:34 Dose: 240 mg Vitamin B Complex/Vit C/Folic Acid (Folic Acid/Vit Bcomp,C 1 Tab Tablet) 1 tab PO DAILY RYAN Stop: 08/09/24 08:59 Last Admin: 08/11/23 08:32 Dose: 1 tab Allergies cephalexin [From Keflex] Adverse Reaction (Verified 08/09/23 11:19) Itching Results Labs 08/11/23 07:54 08/11/23 07:54 Labs: 08/11/23 07:54 BUN 40 H Creatinine 10.48 H Radiology Impressions Impressions - last 24 hours: Any impression(s) listed above is documentation that was entered by the reading physician into a diagnostic report(s) for Luis Chong III. I have reviewed the report(s) and am incorporating any findings in the treatment plan of this patient where applicable. A&P - Nephrology Assessment/Plan (1) End-stage renal disease on peritoneal dialysis: Assessment/Problem Details: Patient follows with Dr. Winchester in [facility] for end-stage renal disease on CCPD. He has end-stage renal disease from nephrectomy and history of hypertensive nephropathy (2) Hypertensive chronic kidney disease with stage 1 through stage 4 chronic kidney disease, or unspecified chronic kidney disease: Assessment/Problem Details: Blood pressure has been elevated this morning. (3) Hyperkalemia: (4) Anemia of renal disease: Assessment/Problem Details: Hemoglobin is within target for end-stage renal disease patient (5) Acute cerebrovascular accident (CVA): Assessment/Problem Details: patient presented with slurred speech and right facial drop. Patient was evaluated by neurology service this morning and started on prednisone for Hutchinson'spalsy patient declined MRI Plan - Manual PD exchanges are running well without drainage difficulty after adding 1000 units of heparin to each liter of PD fluid -We will continue PD 1 exchange every 4 hours. We will continue alternating 1.5- 2.5 dextrose with 2L filling volume. -Blood pressure is better controlled with increasing hydralazine. No fluid overload. I instructed the patient to use 2.5% dextrose after hospital discharge for better control of blood pressure. 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 -Hyperkalemia resolved. We will stop Lokelma -Prednisone for possible Hutchinson's palsy as directed by neurology service -Continue same outpatient phosphorus binder and active vitamin D for hyperphosphatemia and hyperparathyroidism Okay to discharge patient home from nephrology standpoint with the current hydralazine dose. Please call if any question or concern Documented By: Reece Rodriguez MD 08/11/23 1237 Signed By: <Electronically signed by Reece Rodriguez MD> 08/11/23 1241 [facility] Work Phone: [facility] for referral (narrative)* Consultation (Routine) - AuthorizedSpecialtyDiagnoses / ProceduresReferred By Contact Referred To ContactCardiology Diagnoses Nonrheumatic aortic valve stenosis Essential hypertension Procedures Follow Up In Cardiology Clau Sanchez MD [address] [facility] [address], [address] [address] [address] [address] DateExpiration DateVisits RequestedVisits [id number]/23/202310/22/202411 * Consultation (Routine) - AuthorizedSpecialtyDiagnoses / ProceduresReferred By ContactReferred To ContactCardiology Diagnoses Nonrheumatic aortic valve stenosis Essential hypertension Procedures Follow Up In Cardiology Clau Sanchez MD [address] [facility], [address] [place] [address] Clau Sanchez MD [address] [facility] [address], [address] [place] [address] Ref[facility]StatPro[facility] DateExpiration DateVisits RequestedVisits [id number]/23/202310/22/202411 [facility] Work Phone: Summary Purpose Family History No Family History Records Found Relationship Condition Age at Onset Recorded Date/T robyn sister Chronic obstructive pulmonary disease Unk nown Malignant neoplasm of brainUnknownNot SpecifiedCongestive heart failureUnknown Type 2 diabetes mellitusUnknownRenal failureUnknown Relationship Condition Age at Onset Recorded Date/T robyn sister Chronic obstructive pulmonary disease Unk nown Malignant neoplasm of brainUnknownNot SpecifiedCongestive heart failureUnknown Type 2 diabetes mellitusUnknownRenal failureUnknowngrandparentCerebrovascular accident (CVA)Unknown Relationship Condition Age at Onset Recorded Date/T robyn sister Chronic obstructive pulmonary disease Unk nown Malignant neoplasm of brainUnknownmotherCongestive heart failureUnknownType 2 diabetes mellitusUnknownRenal failureUnknowngrandparentCerebrovascular accident (CVA)UnknownfatherDeceasedUnknownfamily memberDeceasedUnknownmotherDiabetes mellitusUnknownDeceasedUnknownHypertensionUnknownsisterMalignant neoplasmUnknown Advance Directives No Advanced Directives Records Found Advance Directive Response Recorded Date/ Time Advance Directives No August 15, 2022 9:36am Advance Directive Response Recorded Date/ Time Advance Directives No August 15, 2022 10:36am TypeDate RecordedPatient RepresentativeExplanationPower of Attorney11/23/2023 3:25 PMHealth care power of department sales manager Chief Complaint and Reason for Visit Chief Complaint ESRD Chief Complaint ESRD ESRD Chief Complaint Chest pain, elevated troponin, syncope Reason for Visit Anemia of renal dise ase CKD (chronic kidney disease) stage 5, GFR less than 15 ml/min Elevated troponin End-stage renal disease on peritoneal dialysis Hyperlipidemia Hypertension Peritoneal dialysis catheter in place Syncope Chief Complaint Chest pain, elevated troponin, syncope slurred speechReason for VisitAnemia of renal disease CKD (chronic kidney disease) stage 5, GFR less than 15 ml/min Elevated troponin End-stage renal disease on peritoneal dialysis Hyperlipidemia Hypertension Peritoneal dialysis catheter in place Syncope Acute cerebrovascular accident (CVA) Dysarthria Facial droop Hypertensive urgency Chief Complaint Chest pain, elevated troponin, syncope slurred speechReason for VisitAnemia of renal disease CKD (chronic kidney disease) stage 5, GFR less than 15 ml/min Elevated troponin End-stage renal disease on peritoneal dialysis Hyperlipidemia Hypertension Peritoneal dialysis catheter in place Syncope Acute cerebrovascular accident (CVA) Anemia of renal disease Dysarthria End-stage renal disease on peritoneal dialysis Facial droop Hyperkalemia [id number] Hypertensive urgency Chief Complaint slurred speech R/O PeritonitisReason for VisitAnemia of renal disease End-stage renal disease on peritoneal dialysis [id number] Dysarthria Facial droop Hyperkalemia Hypertensive urgency (HFpEF) heart failure with preserved ejection fraction Abdominal pain Anemia of renal disease Aortic valve endocarditis Bacteremia due to Staphylococcus aureus End-stage renal disease on peritoneal dialysis Fever Hypertension [id number] Peritoneal dialysis catheter in place Renal mass of unknown nature Severe sepsis Chief Complaint blockage in dialysis port Reason for Visit (HFpEF) heart failur e with preserved ejection fraction Anemia of renal disease End-stage renal disease on peritoneal dialysis Leukocytosis Peritoneal dialysis catheter dysfunction Volume overload Chief Complaint blockage in dialysis port blockage in dialysis portReason for Visit(HFpEF) heart failure with preserved ejection fraction Anemia of renal disease End-stage renal disease on peritoneal dialysis [id number] Hypokalemia Leukocytosis Peritoneal dialysis catheter dysfunction Volume overload Chief Complaint Admit Date pneumonia, peritonitis July 19, 025 8:42pm pneumonia, peritonitis July 26, 2025 12:00am Reason for Visit Admit Date (HFpEF) heart failure with preserved eje ction fraction July 19, 2025 8:42pm Acute hypoxic respiratory failure Septem 2024 8:42pm Anemia of renal disease July 19, 2025 8:42pm End-stage renal disease on peritoneal di alysis July 19, 2025 8:42pm Gout July 19, 2025 8:42pm Hypertension July 19, 2025 8:42pm Hypertensive chronic kidney disease with stage 5 chronic kidney disease or July 19, 2025 8:42pm Hypokalemia July 19, 2025 8:42pm Peritoneal dialysis catheter in place ptember 2024 8:42pm Peritonitis associated with peritoneal d ialysis July 19, 2025 8:42pm Pneumonia July 19, 2025 8:42pm Septic shock July 19, 2025 8:42pm Chief Complaint Admit Date pneumonia, peritonitis July 19 8:42pm pneumonia, peritonitis July 26, 2025 12:00am I112.0 N18.6 Z99.2 August 19, 2025 9 :45am Reason for Visit Admit Date (HFpEF) heart [...] 2025 8:42pm Acute hypoxic respiratory failure Septem 2024 8:42pm Hypokalemia July 19, 2025 8:42pm Peritoneal dialysis catheter in place Se ptember 2024 8:42pm Peritonitis associated with peritoneal d ialysis July 19, 2025 8:42pm Pneumonia July 19, 2025 8:42pm Septic shock July 19, 2025 8:42pm Chief Complaint Admit Date pneumonia, peritonitis July 19 025 8:42pm pneumonia, peritonitis July 26, 2025 12:00am I112.0 N18.6 Z99.2 August 19, 2025 9 :45am Hospital follow-up, needs access creatio n August 21, 2025 9:30am Reason for Referral SpecialtyDiagnoses / ProceduresReferred By ContactReferred To Contact Diagnoses Bacteremia Procedures PICC Line Removal Ron Ortega MD [address] [facility] [place] [address] Referral IDStatusReasonStart DateExpiration DateVisits RequestedVisits [id number] Additional Source Comments (unrecognized sect ion and content) No Status Records FoundNo Status Records FoundNo Status Records FoundNo Status Records FoundNo Status Records FoundNo Status Records FoundNo Status Records FoundNo Status Records FoundNo Status Records Found INFORMATION SOURCE (unrecogn ized section and content) DATE CREATED AUTHOR 10/01/[address] [facility] DATE CREATED AUTHOR AUTHOR'S ORGANIZ ATION 06/22/2023 [facility] DATE CREATED AUTHOR AUTHOR'S ORGANIZ ATION 08/03/2023 [employer] DATE CREATED AUTHOR AUTHOR'S ORGANIZ ATION 08/17/2023 [facility] DATE CREATED AUTHOR AUTHOR'S ORGANIZ ATION 11/30/2023 [facility] DATE CREATED AUTHOR AUTHOR'S ORGANIZ ATION 04/23/2025 [facility] DATE CREATED AUTHOR AUTHOR'S ORGANIZ ATION 07/26/2025 [facility] DATE CREATED AUTHOR AUTHOR'S ORGANIZ ATION 07/27/2025 [facility] DATE CREATED AUTHOR AUTHOR'S ORGANIZ ATION 09/03/2025 [facility] REASON FOR VISIT (unrecogniz ed section and content) ReasonCommentsFollow-upKoh resultsReasonCommentsFollow-upPhysical for nursing homeReasonCommentsOutpatient InfusionvancomycinReasonCommentsOutpatient Infusion VancomycinReasonCommentsOutpatient InfusionIV VANCO Care Teams (unrecognized sec tion and content) Team Status: Active Member Role Status Dates Angel Luis Sanches MD Primary Care Provider Active Team Status: Active Member Role Status Dates Angel Luis Sanches MD Primary Care Provider Active S tart: July 19, 2025 Slick Montiel DOAdmit ProviderActiveStart: July 19, 2025 Latia Mobley MDOther ProviderActiveStart: July 19, 2025 Ron Ortega MDOther ProviderActiveStart: July 19, 2025 Rochelle Fuller MDOther ProviderActiveStart: July 19, 2025 Cherelle Maldonado NP-COther ProviderActiveStart: July 19, 2025 Dom Fasutin MDOther ProviderActiveStart: July 19, 2025 Reece Rodriguez [...] Severino Mitchell MDOther ProviderActiveStart: July 19, 2025 Team Status: Active Member Role Status Dates Angel Luis Sanches MD Primary Care Provider Active S tart: July 26, 2025 Reji Rodriguez ProviderActiveStart: July 26, 2025 Latia Mobley MDOther ProviderActiveStart: July 26, 2025 Ron Ortega MDOther ProviderActiveStart: July 26, 2025 Rochelle Fuller MDOther ProviderActiveStart: July 26, 2025 Cherelle Maldonado NP-COther ProviderActiveStart: July 26, 2025 Monique Wills ProviderActiveStart: July 26, 2025 Parish Ruiz ProviderActiveStart: July 26, 2025 Monique Ruiz ProviderActiveStart: July 26, 2025 Monique Hall ProviderActiveStart: July 26, 2025 Team Status: Inactive Member Role Status Dates Angel Luis Sanches MD Primary Care Provider Active S tart: May 19, 2024 End: May 21, 2024Sean Monge Jr ProviderActiveStart: May 19, 2024 End: May 21, 2024Dylan Garcia Provider, Attending ProviderActive Start: May 19, 2024 End: May 21Monique Austin ProviderActiveStart: May 19, 2024 End: May 21Monique Gorman ProviderActiveStart: May 19, 2024 End: May 21, 2024 Team Status: Active Member Role Status Dates Angel Luis Sanches MD Primary Care Provider Active S tart: May 19, 2024 Sean Monge Jr ProviderActiveStart: May 19, 2024 Dylan Garcia Provider, Other ProviderActiveStart: May 19, 2024 Monique Spaulding ProviderActiveStart: May 19, 2024 Parish Wills Provider, Other ProviderActiveStart: May 19, 2024 Team Status: Active Member Role Status Dates Angel Luis Sanches MD Primary Care Provider Active S tart: May 19, 2024 Sean Monge Jr ProviderActiveStart: May 19, 2024 Dylan Garcia Provider, Attending ProviderActiveStart: May 19, 2024 Monique Wills ProviderActiveStart: May 19, 2024 Monique Spaulding ProviderActiveStart: May 19, 2024 Team Status: Inactive Member Role Status Dates Angel Luis Sanches MD Primary Care Provider Active Sean Florence ProviderActiveMaryjo Romeroit Provider, Attending ProviderActiveMonique Ruiz ProviderActiveJuan Carlos Lopes , DO Other ProviderActive Team Status: Inactive Member Role Status Dates Angel Luis Sanches MD Primary Care Provider Active Lon Cisneros , MDAttending ProviderActiveNicolas Man , MDAdmit ProviderActiveReece Rodriguez MDOther ProviderActive Team Status: Active Member Role Status Dates Angel Luis Sanches MD Primary Care Provider Active Luis Vasquez MDEmergency ProviderActiveCtlupe Rodríguez , DOAdmit Provider, Attending ProviderActiveReece Rodriguez MDOther ProviderActiveJuan Carlos Lopes , Other ProviderActive Team Status: Inactive Member Role Status Dates Angel Luis Sanches MD Primary Care Provider Active Yordan Mora MDOther ProviderActiveReece Rodriguez , FRANCIEttending ProviderActive Team Status: Inactive Member Role Status Dates Angel Luis Sanches MD Primary Care Provider Active Yordan Mora , FRANCIEttending ProviderActiveTeam MemberRelationshipSpecialtyStart DateEnd Date Angel Luis Sanches MD [address] [place] [address] PCP - General06/12/23 Team Status: Inactive Member Role Status Dates Angel Luis Sanches MD Primary Care Provider Active Ron Cardenas , DOAdmit ProviderActiveRochelle Fuller MDOther ProviderActive Adam Judge , MDAttending ProviderActiveBryan Miguel MDOther Provider ActiveRon Ortega MDOther ProviderActiveTeam MemberRelationshipSpecialty Start DateEnd Date Angel Luis Sanches MD [address] [place] [phone] PCP - [facility] Medicine11/24/23Team MemberRelationshipSpecialtyStart DateEnd Date Angel Luis Sanches MD [address] [place] [phone] PCP - [facility] Medicine11/24/23Team MemberRelationshipSpecialtyStart DateEnd Date Angel Luis Sanches MD [address] [facility] [place] [address] PCP - GeneralFamily Medicine2Team MemberRelationshipSpecialtyStart DateEnd Date Angel Luis Sanches MD [address] [place] [facility] [place] [address] PCP - [id number]/24/23Team MemberRelationshipSpecialtyStart DateEnd Date Angel Luis Sanches MD [address] [place] [facility] [place] [address] PCP - [email or web address]//23Team MemberRelationshipSpecialtyStart DateEnd Date Angel Luis Sanches MD [address] [place] [facility] [place] [address] PCP - [id number]//23Team MemberRelationshipSpecialtyStart DateEnd Date Angel Luis Sanches MD [address] [place] [facility] [place] [address] PCP - Olvgkrh48/24/23Team MemberRelationshipSpecialtyStart DateEnd Date Angel Luis Sanches MD [address] [place] [place] [address] PCP - Iyiqcnf47/24/23Team MemberRelationshipSpecialtyStart DateEnd Date Angel Luis Sanches MD [address] [facility] [place] [address] PCP - Ikfpkan03/24/23Team MemberRelationshipSpecialtyStart DateEnd Date Angel Luis Sanches MD [address] [place] [facility] [place] [address] PCP - Gzijhhv84/24/23Team MemberRelationshipSpecialtyStart DateEnd Date Angel Luis Sanches MD [address] [place] [place] [address] PCP - Gersaxz77/24/23Team MemberRelationshipSpecialtyStart DateEnd Date Angel Luis Sanches MD [address] [place] [facility] [place] [address] [facility]09/15/23Te MemberRelationshipSpecialtyStart DateEnd Date Angel Luis Sanches MD [address] [place] [place] [address] PCP [facility]09/15/23 Team Status: Active Member Role/Relationship Status Dates Angel Luis Sanches MD Primary Care Provider Active Team Status: Active Member Role/Relationship Status Dates Angel Luis Sanches MD Primary Care Provider Active S tart: [...] Emma Anderson MDOther ProviderActiveStart: July 19, 2025 Dante Hallending ProviderActiveStart: July 19, 2025 Severino Mitchell MDOther ProviderActiveStart: July 19, 2025 Team Status: Active Member Role/Relationship Status Dates Angel Luis Sanches MD Primary Care Provider Active S tart: July 26, 2025 Slick Montiel , DOAdmit ProviderActiveStart: July 26, 2025 Latia Mobley MDOther ProviderActiveStart: July 26, 2025 Ron Ortega MDOther ProviderActiveStart: July 26, 2025 Rochelle Fuller MDOther ProviderActiveStart: July 26, 2025 Cherelle Maldonado NP-COther ProviderActiveStart: July 26, 2025 Dom Faustin MDOther ProviderActiveStart: July 26, 2025 Parish Ruiz ProviderActiveStart: July 26, 2025 Reece Rodriguez MDOther ProviderActiveStart: July 26, 2025 Severino Mitchell MDOther ProviderActiveStart: July 26, 2025 Team Status: Inactive Member Role/Relationship Status Dates Angel Luis Sanches MD Primary Care Provider Active S tart: August 19, 2025 End: August 19annalee Peraza MDAttending ProviderActiveStart: August 19, 2025 End: August 19, 2025 Team Status: Inactive Member Role/Relationship Status Dates Angel Luis Sanches MD Primary Care Provider Active S tart: August 21, 2025 End: August 21, 2025Siena Newsome NP-CAttending ProviderActiveStart: August 21, 2025 End: August 21, 2025 Goals (unrecognized section and content) Goals may be documented in a n alternate section FOR RECORDS PERTAINING TO PATIENTS WHO ARE OR HAVE BEEN ENROLLED IN A CHEMICAL DEPENDENCY/SUBSTANCEABUSE PROGRAM, SOME INFORMATION MAY BE OMITTED. This clinical summary was aggregated from multiple sources. Caution should be exercised in using it in the provision of clinical care. This summary normalizes information from multiple sources, and as a consequence, information in this document may materially change the coding, format and clinical context of patient data. In addition, data may be omitted in some cases. CLINICAL DECISIONS SHOULD BE BASED ON THE PRIMARY CLINICAL RECORDS. [facility] provides no warranty or guarantee of the accuracy or completeness of information in this document.
[2025-09-04 15:00] LABS: Hematocrit 36.4 % (42.0-54.0); Hemoglobin 11.0 g/dL (14.0-18.0); Immature Granulocytes Abs Auto 0.00 10^3/uL (0.00-0.03); Immature Granulocytes Pct Auto 0.0 % (0.0-0.5); Lymphocytes Absolute Auto 0.7 10^3/uL (1.2-3.8); Mean Corpuscular HGB Conc 30.2 g/dL (29.9-35.2); Mean Corpuscular Hemoglobin 30.1 pg (25.9-34.0); Mean Corpuscular Volume 99.5 fL (80.0-94.0); Platelet Count 262 10^3/uL (150-450); Red Blood Count 3.66 10^6/uL (4.70-6.10); White Blood Count 3.8 10^3/uL (4.0-11.0)
[2025-09-04 15:11] LABS: Alanine Aminotransferase 22 U/L (16-63); Albumin Globulin Ratio 0.5; Albumin Level 2.5 g/dL (3.4-5.0); Alkaline Phosphatase 118 U/L (46-116); Anion Gap 9.9; Aspartate Amino Transferase 21 U/L (15-37); Blood Urea Nitrogen 12.0 mg/dL (7.0-18.0); Calcium 9.1 mg/dL (8.5-10.1); Carbon Dioxide 28.6 mmol/L (21.0-32.0); Chloride 102 mmol/L (98-107); Estimated GFR (African America 9 (>=60 mL/min/1.73m^2); Estimated GFR (Non-African Ame 8 (>=60 mL/min/1.73m^2); Globulin 5.3 g/dL; Glucose 102 mg/dL (74-106); Potassium 4.5 mmol/L (3.5-5.1); Sodium 136 mmol/L (136-145); Total Protein 7.8 g/dL (6.4-8.2)
== END 2025-09-04 16:03 | disposition home or self-care (01) ==
PROVIDERS: Emergency Provider Emergency Medicine; PCP Family Medicine
DX: R10.9 Unspecified abdominal pain (principal); Z99.2 Dependence on renal dialysis
CPT/HCPCS: 36415; 80053; 85025; 99283